=== PATIENT | female | born 1935 | race Caucasian/White ===

== ENCOUNTER 2017-06-08 17:28 | Inpatient (IN) | payer BC ==
[~2017-06-08] VITALS: Ht 152.4 cm; Wt 125.2 kg
[~2017-06-08 17:28] MED LIST: CELEBREX200 MG ORAL; ENABLEX15 MG ORAL; GLUCOSAMINE HC500 MG PO; MACROBID100 MG ORAL; MULTIVITAMINS1 EA11 ORAL; OMEGA 3-6-9 CO400 MG PO; VITAMIN D1000 UNI2 PO
[2017-06-08 17:30] VITALS: BP 158/76
--- NOTE | 2017-06-08 17:50 | Emergency Room Report ---
History of Present Illness General Chief Complaint: Dyspnea/Respdistress Source: Patient, EMS Present Illness HPI 81-year-old female, coming from home, brought by EMS, history of Parkinson's disease, presenting with cough and shortness of breath for 3 days. Patient states that she has a dry cough. Also had subjective fever and chills. States that she has had progressive shortness of breath which occurs both at rest and on exertion. Today she has been the worst. Denies any recent hospitalizations. Denies any history of smoking. No chest pain nausea vomiting diarrhea Allergies: Coded Allergies: No Known Allergies (Unverified , 01/11/14) Patient History Past Medical History: see triage record Past Surgical History: none Pertinent Family History: none Last Menstrual Period: na Reviewed Nursing Documentation: PMH: Agreed, PSxH: Agreed Nursing Documentation-PMH Past Medical History: No History, Except For Hx Cardiac Problems: No Hx Cancer: Yes - BCC SKIN CA Hx Gastrointestinal Problems: No Hx Neurological Problems: Yes - parkinsons Review of Systems All Other Systems: negative except mentioned in HPI Physical Exam Vital Signs Date Time Temp Pulse Resp B/P (MAP) Pulse Ox O2 Delivery O2 Flow Rate FiO2 06/08/17 17:21 99.3 90 48 188/74 96 Room Air 06/08/17 17:30 50 Sp02 EP Interpretation: reviewed, abnormal - 99 on NRB General Appearance: other - elderly female, in resp distress, speaking 3-4 word sentences Head: normocephalic, atraumatic Eyes: bilateral eye normal inspection, bilateral eye PERRL, bilateral eye EOMI ENT: normal ENT inspection, normal pharynx, normal voice, moist mucus membranes Neck: normal inspection, full range of motion, supple Respiratory: other - tachypneic, rhonchi b/l Cardiovascular #1: normal inspection, regular rate, rhythm, no edema, normal capillary refill Cardiovascular #2: 2+ radial (R), 2+ radial (L) Gastrointestinal: normal inspection, non tender, soft, non-distended, no guarding Musculoskeletal: normal inspection, back normal, normal range of motion, non- tender Neurologic: normal inspection, alert, oriented x3, responsive, motor strength/ tone normal, sensory intact, normal gait, speech normal Psychiatric: normal inspection, judgement/insight normal, memory normal Skin: normal inspection, normal color, no rash, warm/dry, well hydrated, normal turgor Procedures Critical Care Time Critical Care Time 40 minutes of CC time 81-year-old female with fever chills shortness of breath VS: Tachypneic and hypoxic Airway patent. PLAN: IV access, labs, lactate, Blood/Urine Cx, Abx Anticipate admission to [facility] vs. [facility] CC time also includes review of labs, review of EMR, discussion with family and paperwork from SNF, d/w hospitalist CC could include dosing of pressors, additional Abx CC time does not include procedures Medical Decision Making Diagnostic Impression: Primary Impression: Respiratory distress Additional Impressions: UTI (urinary tract infection) Pneumonia ER Course 81-year-old female with pmhx of Parkinson's disease p/w shortness of breath fever and cough for 3 days. DDX: Viral URI vs. pneumonia versus ACS versus UTI Plan: Labs, EKG, chest x-ray ER course: Patient required BiPAP upon arrival as she was tachypnea, increased work of breathing Continues to be in mild/moderate respiratory distress. IV fluids given to patient, antibiotics administered for UTI and pneumonia Patient weaned off bipap, currently RR ~25 Disposition: Patient is to be admitted to [facility] D/w hospitalist Dr Ortega who has accepted patient for xfer EKG Diagnostic Results EP Interpretation: Yes Rate: normal Rhythm: NSR ST Segments: T wave flattening in V2 and V3 ASA given to patient: No Rhythm Strip EP Interpretation: Yes Rate: 90 Rhythm: NSR, no PVCs, no ectopy Chest X-ray CXR: Ordered: Yes 1 view Indication: SOB EP interpretation: Yes Interpretation: cardiomegaly with infiltrate vs. pulm vasc congestion Impression: pulm vasc congestion vs. b/l infilrates Electronically signed by Good Zhang MD Laboratory Tests Test 06/08/17 18:00 06/08/17 18:27 06/08/17 19:10 White Blood Count 12.4 K/UL (4.8-10.8) H Red Blood Count 5.02 M/UL (4.20-5.40) Hemoglobin 14.4 G/DL (12.0-16.0) Hematocrit 48.7 % (37.0-47.0) H Mean Corpuscular Volume 97 FL (80-99) Mean Corpuscular Hemoglobin 28.6 PG (27.0-31.0) Mean Corpuscular Hemoglobin Concent 29.5 G/DL (32.0-36.0) L Red Cell Distribution Width 12.4 % (11.6-14.8) Platelet Count 154 K/UL (150-450) Mean Platelet Volume 6.3 FL (6.5-10.1) L Neutrophils (%) (Auto) % (45.0-75.0) Lymphocytes (%) (Auto) % (20.0-45.0) Monocytes (%) (Auto) % (1.0-10.0) Eosinophils (%) (Auto) % (0.0-3.0) Basophils (%) (Auto) % (0.0-2.0) Differential Total Cells Counted 100 Neutrophils % (Manual) 86 % (45-75) H Lymphocytes % (Manual) 7 % (20-45) L Monocytes % (Manual) 5 % (1-10) Eosinophils % (Manual) 0 % (0-3) Basophils % (Manual) 0 % (0-2) Band Neutrophils 2 % (0-8) Platelet Estimate Adequate Platelet Morphology Normal Red Blood Cell Morphology Normal Sodium Level 139 MMOL/L (136-145) Potassium Level 4.4 MMOL/L (3.5-5.1) Chloride Level 105 MMOL/L (98-107) Carbon Dioxide Level 25 MMOL/L (21-32) Anion Gap 9 mmol/L (5-15) Blood Urea Nitrogen 24 mg/dL (7-18) H Creatinine 0.9 MG/DL (0.55-1.30) Estimate Glomerular Filtration Rate mL/min (>60) Glucose Level 141 MG/DL (74-106) H Lactic Acid Level 1.60 mmol/L (0.66-2.22) Calcium Level 9.1 MG/DL (8.5-10.1) Total Bilirubin 0.7 MG/DL (0.2-1.0) Aspartate Amino Transferase (AST) 17 U/L (15-37) Alanine Aminotransferase (ALT) 24 U/L (12-78) Alkaline Phosphatase 76 U/L (46-116) Troponin I 0.000 ng/mL (0.000-0.056) Pro-B-Type Natriuretic Peptide 268 pg/mL (0-125) H Total Protein 7.5 G/DL (6.4-8.2) Albumin 3.7 G/DL (3.4-5.0) Globulin 3.8 g/dL Albumin/Globulin Ratio 1.0 (1.0-2.7) Arterial Blood pH 7.426 (7.350-7.450) Arterial Blood Partial Pressure CO2 31.5 mmHg (35.0-45.0) L Arterial Blood Partial Pressure O2 115.1 mmHg (75.0-100.0) H Arterial Blood HCO3 20.3 mmol/L (22.0-26.0) L Arterial Blood Oxygen Saturation 98.3 % (92.0-98.0) H Arterial Blood Base Excess -3.0 Kerwin Test Positive Urine Color Pale yellow Urine Appearance Clear Urine pH 5 (4.5-8.0) Urine Specific [place] 1.015 (1.005-1.035) Urine Protein Negative (NEGATIVE) Urine Glucose (UA) Negative (NEGATIVE) Urine Ketones Negative (NEGATIVE) Urine Occult Blood 1+ (NEGATIVE) H Urine Nitrite Positive (NEGATIVE) H Urine Bilirubin Negative (NEGATIVE) Urine Urobilinogen Normal MG/DL (0.0-1.0) Urine Leukocyte Esterase 2+ (NEGATIVE) H Urine RBC 0-2 /HPF (0 - 2) Urine WBC 2-4 /HPF (0 - 2) Urine Squamous Epithelial Cells Few /LPF (NONE/OCC) Urine Bacteria Few /HPF (NONE) Last Vital Signs Date Time Temp Pulse Resp B/P (MAP) Pulse Ox O2 Delivery O2 Flow Rate FiO2 06/08/17 17:30 89 40 96 Facial 50 06/08/17 17:21 99.3 188/74 Disposition: ADMITTED INPATIENT Condition: Serious Good Zhang M.D. Jun 08, 2017 17:50
[2017-06-08 18:35] LABS: ANION GAP 9 mmol/L (5-15); CALCIUM 9.1 MG/DL (8.5-10.1); CARBON DIOXIDE 25 MMOL/L (21-32); CHLORIDE 105 MMOL/L (98-107); CREATININE 0.9 MG/DL (0.55-1.30); POTASSIUM 4.4 MMOL/L (3.5-5.1); SODIUM 139 MMOL/L (136-145)
[2017-06-08 18:39] LABS: ALANINE AMINOTRANSFERASE 24 U/L (12-78); ASPARTATE AMINO TRANSFERASE 17 U/L (15-37); TOTAL PROTEIN 7.5 G/DL (6.4-8.2)
[2017-06-08 18:51] LABS: MEAN CORPUSCULAR HEMOGLOBIN 28.6 PG (27.0-31.0); MEAN CORPUSCULAR HGB CONC 29.5 G/DL (32.0-36.0); MEAN CORPUSCULAR VOLUME 97 FL (80-99); MEAN PLATELET VOLUME 6.3 FL (6.5-10.1); PLATELET COUNT 154 K/UL (150-450); RED BLOOD COUNT 5.02 M/UL (4.20-5.40); RED CELL DISTRIBUTION WIDTH 12.4 % (11.6-14.8); WHITE BLOOD COUNT 12.4 K/UL (4.8-10.8)
[2017-06-08 19:00] VITALS: BP 166/54
[2017-06-08 19:28] LABS: APPEARANCE,URINE CLEAR; KETONES,URINE NEGATIVE (NEGATIVE); LEUKOCYTE ESTERASE ,URINE 2+ (NEGATIVE); NITRITE,URINE POSITIVE (NEGATIVE); PH,URINE 5 (4.5-8.0); PROTEIN,URINE NEGATIVE (NEGATIVE); UROBILINOGEN,URINE NORMAL MG/DL (0.0-1.0)
[2017-06-08 19:39] LABS: BACTERIA,URINE FEW /HPF; RBC,URINE 0-2 /HPF (0 - 2); SQUAMOUS EPITHELIAL CELL,UR FEW /LPF (NONE/OCC)
[2017-06-08 19:41] LABS: ABG PCO2 31.5 mmHg (35.0-45.0)
[2017-06-08 19:42] LABS: ABG ALLEN TEST POSITIVE
[2017-06-08] MEDS ORDERED: cefTRIAXone 1 GM in NS 55 ML IV ONE (19:45)
[2017-06-08] MEDS ORDERED: Azithromycin 500 MG in NS 275 ML IV ONE (19:45)
[2017-06-08] MEDS ORDERED: Lidocaine 1% MPF 10mg/ml 5ml INJ ONE (19:45)
[2017-06-08 19:47] LABS: BAND NEUTROPHILS % (MANUAL) 2 % (0-8); BASOPHILS % (MANUAL) 0 % (0-2); EOSINOPHILS % (MANUAL) 0 % (0-3); LYMPHOCYTES % (MANUAL) 7 % (20-45); NEUTROPHILS % (MANUAL) 86 % (45-75); PLATELET ESTIMATE ADEQUATE; PLATELET MORPHOLOGY NORMAL; TOTAL CELLS COUNTED 100
[2017-06-08] MEDS ORDERED: Azithromycin 500mg Inj IV ONE (20:13)
[2017-06-08] MEDS ORDERED: NS 275 ML ONE (20:14)
[2017-06-08] MEDS ORDERED: AZELASTINE137 MCG/0. NS (20:47)
[2017-06-08] MEDS ORDERED: SINEMET 25-1001 EAC1 ORAL (20:47)
[2017-06-08] MEDS ORDERED: FLONASE ALLERG9.9 ML NS (20:47)
[2017-06-08] MEDS ORDERED: SENSIPAR30 MG (20:50)
[2017-06-08] MEDS ORDERED: ESTRING1 EACH (20:50)
[2017-06-08] MEDS ORDERED: TOVIAZ8 MG (20:50)
[2017-06-08 21:00] VITALS: BP 151/72
[2017-06-08] MEDS ORDERED: Mylanta II UD 30ml ORAL PRN (21:45)
[2017-06-08] MEDS ORDERED: Miralax 17gm pkt ORAL PRN (21:45)
[2017-06-08] MEDS ORDERED: Promethazine/Codeine 5ml UD ORAL PRN (21:45)
[2017-06-08] MEDS ORDERED: Nitroglycerin Subl 0.4mg tab SL PRN (21:45)
[2017-06-08] MEDS ORDERED: Vancomycin 1.5gm/D5W 250ml 250 ML IVPB SCH (23:00)
[2017-06-08] MEDS: Cefepime HCl 1 GM in D5W 55 ML IV SCH (23:12)
[2017-06-09] VITALS: BP 135/80
[2017-06-09] MEDS: Albuterol/Ipratropium 3ml neb HHN PRN (00:10)
[2017-06-09 04:51] VITALS: BP 103/68
[2017-06-09 06:12] LABS: MEAN CORPUSCULAR HEMOGLOBIN 31.8 PG (27.0-31.0); MEAN CORPUSCULAR HGB CONC 33.8 G/DL (32.0-36.0); MEAN CORPUSCULAR VOLUME 94 FL (80-99); MEAN PLATELET VOLUME 5.9 FL (6.5-10.1); PLATELET COUNT 152 K/UL (150-450); RED BLOOD COUNT 4.08 M/UL (4.20-5.40); RED CELL DISTRIBUTION WIDTH 12.5 % (11.6-14.8)
[2017-06-09 06:30] LABS: ANION GAP 9 mmol/L (5-15); CALCIUM 8.7 MG/DL (8.5-10.1); CARBON DIOXIDE 24 MMOL/L (21-32); CHLORIDE 107 MMOL/L (98-107); PHOSPHORUS 2.9 MG/DL (2.5-4.9); POTASSIUM 4.1 MMOL/L (3.5-5.1); SODIUM 140 MMOL/L (136-145)
[2017-06-09 08:00] VITALS: BP 116/67
[2017-06-09] MEDS: Sinemet 25/100 tab ORAL SCH ×3 (09:31→17:43)
[2017-06-09] MEDS: Vitamin A&D Oint 2oz Tube TOPIC SCH ×2 (09:33→21:25)
[2017-06-09] MEDS: Heparin 5000 units/ml inj SUBQ SCH ×2 (09:33→21:26)
--- NOTE | 2017-06-09 10:17 | History and Physical ---
History of Present Illness General Date patient seen: Jun 08, 2017 Time patient seen: 21:00 Reason for Hospitalization: Dyspnea/Respdistress Present Illness HPI 81-year-old female, with hx of Parkinson disease, peripheral edema, almost bed bound coming from home, brought by EMS with CC of cough and shortness of breath for 3 days and dry cough. Also had subjective fever and chills. States that she has had progressive shortness of breath which occurs both at rest and on exertion. she had a swallow study one month ago at [facility], which was reportedly normal. She was in respiratory failure in ER and was put on BIPAP and transferred to [facility]. She had loud audible rhonchi and visibly short of breath. Allergies: Coded Allergies: No Known Allergies (Unverified , 01/11/14) Medication History Scheduled Carbidopa/Levodopa 25-100 Mg* (Sinemet 25-100 Mg Tablet*), 1 TAB ORAL THREE TIMES A DAY, (Reported) Celecoxib* (Celebrex*), 200 MG ORAL DAILY, (Reported) Cholecalciferol (Vitamin D3) (Vitamin D), 1,000 UNIT PO DA, (Reported) Cinacalcet* (Sensipar*), DAILY, (Reported) Estradiol (Estring), EVERY THREE MONTHS, (Reported) Fesoterodine Fumarate (Toviaz), 8 MG DAILY, (Reported) Fluticasone Propionate (Flonase Allergy Relief), 50 MCG NS BID, (Reported) Glucosamine Hcl (Glucosamine Hcl), 500 MG PO DAILY, (Reported) Multivitamin (Multivitamins), 1 CAP ORAL DAILY, (Reported) Miscellaneous Medications Azelastine Hcl (Azelastine Hcl), 137 MCG NS, (Reported) Discontinued Medications Darifenacin Hydrobromide* (Enablex*), 15 MG ORAL DAILY, (Reported) Discontinued Reason: Pt stopped taking med Fish Oil/Borage/Flax/Om3,6,9#1 ([place] 3-6-9 Complex Softgel), 400 MG PO DA, ( Reported) Discontinued Reason: Pt stopped taking med Nitrofurantoin Monohyd/M-Cryst (Nitrofurantoin [place]-Mcr 100 mg), 100 MG ORAL DA, (Reported) Discontinued Reason: Pt stopped taking med Patient History Healthcare decision maker KHOI CHIU Resuscitation status Full Code Advanced Directive on File No Past Medical/Surgical History Past Medical/Surgical History: (1) Parkinson disease (2) Peripheral edema Review of Systems Constitutional: Reports: fever, malaise, weakness Respiratory: Reports: shortness of breath, wheezing Physical Exam General Appearance: WD/WN Lines, tubes and drains: peripheral HEENT: normocephalic, atraumatic Neck: non-tender, normal alignment Respiratory/Chest: rhonchi - bilaterally, rhonchi - left, rhonchi - right Cardiovascular/Chest: normal peripheral pulses, regular rhythm Abdomen: normal bowel sounds, soft Extremities: normal range of motion, normal inspection Skin Exam: warm/dry Neurologic: clinical informatics specialist II-XII grossly normal Last 24 Hour Vital Signs Date Time Temp Pulse Resp B/P (MAP) Pulse Ox O2 Delivery O2 Flow Rate FiO2 06/09/17 08:00 98.1 72 20 116/67 97 Bi-pap 40 06/09/17 08:00 40 06/09/17 08:00 72 06/09/17 07:15 74 21 98 Facial 40 06/09/17 05:23 79 22 98 Facial 40 06/09/17 04:51 97.7 70 21 103/68 97 Bi-pap 40 06/09/17 04:00 65 06/09/17 04:00 40 06/09/17 03:41 82 20 98 Facial 40 06/09/17 01:55 79 25 97 Facial 40 06/09/17 00:12 88 22 96 Nasal Cannula 4.0 06/09/17 00:00 40 06/09/17 00:00 98.8 92 25 135/80 40 06/09/17 00:00 93 06/08/17 21:30 99.3 89 26 151/72 94 Nasal Cannula 3.0 50 06/08/17 21:00 89 26 151/72 94 Nasal Cannula 3.0 06/08/17 19:44 82 30 98 Facial 50 06/08/17 19:00 86 33 166/54 99 Bi-pap 50 06/08/17 17:37 87 33 Bi-pap 50 06/08/17 17:30 89 40 96 Facial 50 06/08/17 17:30 91 33 158/76 96 Bi-pap 50 06/08/17 17:28 89 40 Room Air 21 06/08/17 17:21 99.3 90 48 188/74 96 Room Air Laboratory Tests Test 06/08/17 18:00 06/08/17 18:27 06/08/17 19:10 06/09/17 05:40 White Blood Count 12.4 K/UL (4.8-10.8) H 15.0 K/UL (4.8-10.8) H Red Blood Count 5.02 M/UL (4.20-5.40) 4.08 M/UL (4.20-5.40) L Hemoglobin 14.4 G/DL (12.0-16.0) 13.0 G/DL (12.0-16.0) Hematocrit 48.7 % (37.0-47.0) H 38.4 % (37.0-47.0) Mean Corpuscular Volume 97 FL (80-99) 94 FL (80-99) Mean Corpuscular Hemoglobin 28.6 PG (27.0-31.0) 31.8 PG (27.0-31.0) H Mean Corpuscular Hemoglobin Concent 29.5 G/DL (32.0-36.0) L 33.8 G/DL (32.0-36.0) Red Cell Distribution Width 12.4 % (11.6-14.8) 12.5 % (11.6-14.8) Platelet Count 154 K/UL (150-450) 152 K/UL (150-450) Mean Platelet Volume 6.3 FL (6.5-10.1) L 5.9 FL (6.5-10.1) L Neutrophils (%) (Auto) % (45.0-75.0) % (45.0-75.0) Lymphocytes (%) (Auto) % (20.0-45.0) % (20.0-45.0) Monocytes (%) (Auto) % (1.0-10.0) % (1.0-10.0) Eosinophils (%) (Auto) % (0.0-3.0) % (0.0-3.0) Basophils (%) (Auto) % (0.0-2.0) % (0.0-2.0) Differential Total Cells Counted 100 Neutrophils % (Manual) 86 % (45-75) H Lymphocytes % (Manual) 7 % (20-45) L Monocytes % (Manual) 5 % (1-10) Eosinophils % (Manual) 0 % (0-3) Basophils % (Manual) 0 % (0-2) Band Neutrophils 2 % (0-8) Platelet Estimate Adequate Platelet Morphology Normal Red Blood Cell Morphology Normal Sodium Level 139 MMOL/L (136-145) 140 MMOL/L (136-145) Potassium Level 4.4 MMOL/L (3.5-5.1) 4.1 MMOL/L (3.5-5.1) Chloride Level 105 MMOL/L (98-107) 107 MMOL/L (98-107) Carbon Dioxide Level 25 MMOL/L (21-32) 24 MMOL/L (21-32) Anion Gap 9 mmol/L (5-15) 9 mmol/L (5-15) Blood Urea Nitrogen 24 mg/dL (7-18) H 21 mg/dL (7-18) H Creatinine 0.9 MG/DL (0.55-1.30) 1.0 MG/DL (0.55-1.30) Estimat Glomerular Filtration Rate mL/min (>60) mL/min (>60) Glucose Level 141 MG/DL (74-106) H 147 MG/DL (74-106) H Lactic Acid Level 1.60 mmol/L (0.66-2.22) Calcium Level 9.1 MG/DL (8.5-10.1) 8.7 MG/DL (8.5-10.1) Total Bilirubin 0.7 MG/DL (0.2-1.0) Aspartate Amino Transf (AST/SGOT) 17 U/L (15-37) Alanine Aminotransferase (ALT/SGPT) 24 U/L (12-78) Alkaline Phosphatase 76 U/L (46-116) Troponin I 0.000 ng/mL (0.000-0.056) Pro-B-Type Natriuretic Peptide 268 pg/mL (0-125) H Total Protein 7.5 G/DL (6.4-8.2) Albumin 3.7 G/DL (3.4-5.0) 3.1 G/DL (3.4-5.0) L Globulin 3.8 g/dL Albumin/Globulin Ratio 1.0 (1.0-2.7) Arterial Blood pH 7.426 (7.350-7.450) Arterial Blood Partial Pressure CO2 31.5 mmHg (35.0-45.0) L Arterial Blood Partial Pressure O2 115.1 mmHg (75.0-100.0) H Arterial Blood HCO3 20.3 mmol/L (22.0-26.0) L Arterial Blood Oxygen Saturation 98.3 % (92.0-98.0) H Arterial Blood Base Excess -3.0 Kerwin Test Positive Urine Color Pale yellow Urine Appearance Clear Urine pH 5 (4.5-8.0) Urine Specific [place] 1.015 (1.005-1.035) Urine Protein Negative (NEGATIVE) Urine Glucose (UA) Negative (NEGATIVE) Urine Ketones Negative (NEGATIVE) Urine Occult Blood 1+ (NEGATIVE) H Urine Nitrite Positive (NEGATIVE) H Urine Bilirubin Negative (NEGATIVE) Urine Urobilinogen Normal MG/DL (0.0-1.0) Urine Leukocyte Esterase 2+ (NEGATIVE) H Urine RBC 0-2 /HPF (0 - 2) Urine WBC 2-4 /HPF (0 - 2) Urine Squamous Epithelial Cells Few /LPF (NONE/OCC) Urine Bacteria Few /HPF (NONE) Phosphorus Level 2.9 MG/DL (2.5-4.9) Height (Feet): 5 Height (Inches): 0.00 Weight (Pounds): 276 Medications Current Medications Medications (Trade) Dose Ordered Sig/Roro Route PRN Reason Start Time Stop Time Status Last Admin Dose Admin Acetaminophen (Tylenol) 650 mg Q4H PRN ORAL fever 06/08/17 21:45 07/08/17 21:44 Al Hydroxide/Mg Hydroxide (Mylanta II) 30 ml Q6H PRN ORAL dyspepsia 06/08/17 21:45 07/08/17 21:44 Albuterol/ Ipratropium (Albuterol/ Ipratropium) 3 ml Q4H PRN HHN Shortness of Breath 06/08/17 21:45 06/13/17 21:44 06/09/17 00:10 Carbidopa/Levodopa (Sinemet 25/100) 1 ea THREE TIMES A DAY ORAL 06/09/17 09:00 07/09/17 08:59 06/09/17 09:31 Cefepime HCl 1 gm/ Dextrose 55 ml @ 110 mls/hr Q24H IV 06/08/17 22:30 06/15/17 22:29 06/08/17 23:12 Heparin Sodium (Porcine) (Heparin 5000 units/ml) 5,000 units EVERY 12 HOURS SUBQ 06/09/17 09:00 07/09/17 08:59 06/09/17 09:33 Methylprednisolone Sodium Succinate (Solu-MEDROL) 60 mg EVERY 6 HOURS IV 06/09/17 12:00 07/09/17 11:59 UNV Nitroglycerin (Ntg) 0.4 mg Q5MIN X 3 DOSES PRN SL Prn Chest Pain 06/08/17 21:45 07/08/17 21:44 Ondansetron HCl (Zofran) 4 mg Q6H PRN IVP Nausea & Vomiting 06/08/17 21:45 07/08/17 21:44 Polyethylene Glycol (Miralax) 17 gm DAILYPRN PRN ORAL Constipation 06/08/17 21:45 07/08/17 21:44 Promethazine HCl/ Codeine (Phenergan with Codeine) 5 ml Q4H PRN ORAL For Cough 06/08/17 21:45 07/08/17 21:44 Temazepam (Restoril) 15 mg HSPRN PRN ORAL Insomnia 06/08/17 21:45 06/15/17 21:44 Vancomycin HCl (Vanco rx to dose) 1 ea DAILYPRN PRN MISC Per rx protocol 06/08/17 21:45 07/08/17 21:44 Vancomycin HCl 1 gm/Dextrose 250 ml @ 166.667 mls/hr DAILY@2300 IVPB 06/09/17 23:00 06/14/17 22:59 Vancomycin HCl/ Dextrose 250 ml @ 125 mls/hr ONCE IVPB 06/08/17 23:00 06/13/17 22:59 06/09/17 00:32 Vitamin A/Vitamin D (A & D Oint) 1 applic EVERY 12 HOURS TOPIC 06/09/17 09:00 07/09/17 08:59 06/09/17 09:33 Assessment/Plan Problem List: (1) Acute respiratory failure ICD Codes: J96.00 - Acute respiratory failure, unspecified whether with hypoxia or hypercapnia SNOMED: 05520934 (2) Purulent bronchitis ICD Codes: J41.1 - Mucopurulent chronic bronchitis SNOMED: 42451643 (3) At high risk for aspiration ICD Codes: Z91.89 - Other specified personal risk factors, not elsewhere classified SNOMED: 828065945 (4) Pneumonia ICD Codes: J18.9 - Pneumonia, unspecified organism SNOMED: 450141335 (5) Peripheral edema ICD Codes: R60.9 - Edema, unspecified SNOMED: 073981348 (6) Parkinson disease ICD Codes: G20 - Parkinson's disease SNOMED: 94059762 Assessment/Plan respiratory treatment titrate bipap check sputum iv abx short course of abx echo cardiogram swallow study pt/ot in a few days KERRI YIN Jun 09, 2017 10:17
--- NOTE | 2017-06-09 10:22 | Diagnostic Imaging Report ---
Indication: SOB Technique: One view of the chest Comparison: none Findings: Inspiration is suboptimal. Patient's chin obscures the upper mediastinum. There is equivocal mild interstitial congestion. No focal airspace consolidation. Pleural spaces are clear. The heart is borderline enlarged. Impression: Borderline heart remains Mild interstitial congestion Limited exam, as described
--- NOTE | 2017-06-09 10:34 | Pulmonology Progress Note ---
Assessment/Plan Problems: (1) Acute respiratory failure (2) Purulent bronchitis (3) At high risk for aspiration (4) Pneumonia (5) Peripheral edema (6) Parkinson disease Respiratory: monitor respiratory rate, adjust FIO2, CXR Cardiac: continue to monitor HR/BP Renal: F/U I&O, check electrolytes Infectious Disease: check cultures, continue antibiotics Gastrointestinal: continue feedings/current rate, other - swallow study Endocrine: monitor blood sugar Hematologic: monitor H/H, transfuse if hgb<8.5 Neurologic: PRN Ativan, PRN Morphine, keep patient comfortable Prophylaxis: Heparin Notes Reviewed: territory development manager, cardio Discussed with: nurses, consultants, sample case porter Subjective ROS Limited/Unobtainable: No Interval Events: off bipap, pts son in at the bed site Allergies: Coded Allergies: No Known Allergies (Unverified , 01/11/14) Objective Last 24 Hour Vital Signs Date Time Temp Pulse Resp B/P (MAP) Pulse Ox O2 Delivery O2 Flow Rate FiO2 06/09/17 08:00 98.1 72 20 116/67 97 Bi-pap 40 06/09/17 08:00 40 06/09/17 08:00 72 06/09/17 07:15 74 21 98 Facial 40 06/09/17 05:23 79 22 98 Facial 40 06/09/17 04:51 97.7 70 21 103/68 97 Bi-pap 40 06/09/17 04:00 65 06/09/17 04:00 40 06/09/17 03:41 82 20 98 Facial 40 06/09/17 01:55 79 25 97 Facial 40 06/09/17 00:12 88 22 96 Nasal Cannula 4.0 06/09/17 00:00 40 06/09/17 00:00 98.8 92 25 135/80 40 06/09/17 00:00 93 06/08/17 21:30 99.3 89 26 151/72 94 Nasal Cannula 3.0 50 06/08/17 21:00 89 26 151/72 94 Nasal Cannula 3.0 06/08/17 19:44 82 30 98 Facial 50 06/08/17 19:00 86 33 166/54 99 Bi-pap 50 06/08/17 17:37 87 33 Bi-pap 50 06/08/17 17:30 89 40 96 Facial 50 06/08/17 17:30 91 33 158/76 96 Bi-pap 50 06/08/17 17:28 89 40 Room Air 21 06/08/17 17:21 99.3 90 48 188/74 96 Room Air General Appearance: no acute distress HEENT: normocephalic, atraumatic Respiratory/Chest: chest wall non-tender, accessory muscle use, crackles/rales Cardiovascular: normal peripheral pulses, normal rate Abdomen: normal bowel sounds, soft, non tender, no organomegaly Extremities: no cyanosis Skin: no lesions, rash - lower extremities Laboratory Tests 06/08/17 18:00: White Blood Count 12.4H, Red Blood Count 5.02, Hemoglobin 14.4, Hematocrit 48.7H , Mean Corpuscular Volume 97, Mean Corpuscular Hemoglobin 28.6, Mean Corpuscular Hemoglobin Concent 29.5L, Red Cell Distribution Width 12.4, Platelet Count 154, Mean Platelet Volume 6.3L, Neutrophils (%) (Auto) , Lymphocytes (%) (Auto) , Monocytes (%) (Auto) , Eosinophils (%) (Auto) , Basophils (%) (Auto) , Differential Total Cells Counted 100, Neutrophils % ( Manual) 86H, Lymphocytes % (Manual) 7L, Monocytes % (Manual) 5, Eosinophils % ( Manual) 0, Basophils % (Manual) 0, Band Neutrophils 2, Platelet Estimate Adequate, Platelet Morphology Normal, Red Blood Cell Morphology Normal, Sodium Level 139, Potassium Level 4.4, Chloride Level 105, Carbon Dioxide Level 25, Anion Gap 9, Blood Urea Nitrogen 24H, Creatinine 0.9, Estimat Glomerular Filtration Rate , Glucose Level 141H, Lactic Acid Level 1.60, Calcium Level 9.1 , Total Bilirubin 0.7, Aspartate Amino Transf (AST/SGOT) 17, Alanine Aminotransferase (ALT/SGPT) 24, Alkaline Phosphatase 76, Troponin I 0.000, Pro-B -Type Natriuretic Peptide 268H, Total Protein 7.5, Albumin 3.7, Globulin 3.8, Albumin/Globulin Ratio 1.0 06/08/17 18:27: Arterial Blood pH 7.426, Arterial Blood Partial Pressure CO2 31.5L, Arterial Blood Partial Pressure O2 115.1H, Arterial Blood HCO3 20.3L, Arterial Blood Oxygen Saturation 98.3H, Arterial Blood Base Excess -3.0, Kerwin Test Positive 06/08/17 19:10: Urine Color Pale yellow, Urine Appearance Clear, Urine pH 5, Urine Specific [place] 1.015, Urine Protein Negative, Urine Glucose (UA) Negative, Urine Ketones Negative, Urine Occult Blood 1+H, Urine Nitrite PositiveH, Urine Bilirubin Negative, Urine Urobilinogen Normal, Urine Leukocyte Esterase 2+H, Urine RBC 0-2, Urine WBC 2-4, Urine Squamous Epithelial Cells Few, Urine Bacteria Few 06/09/17 05:40: White Blood Count 15.0H, Red Blood Count 4.08L, Hemoglobin 13.0, Hematocrit 38.4 , Mean Corpuscular Volume 94, Mean Corpuscular Hemoglobin 31.8H, Mean Corpuscular Hemoglobin Concent 33.8, Red Cell Distribution Width 12.5, Platelet Count 152, Mean Platelet Volume 5.9L, Neutrophils (%) (Auto) , Lymphocytes (%) ( Auto) , Monocytes (%) (Auto) , Eosinophils (%) (Auto) , Basophils (%) (Auto) , Sodium Level 140, Potassium Level 4.1, Chloride Level 107, Carbon Dioxide Level 24, Anion Gap 9, Blood Urea Nitrogen 21H, Creatinine 1.0, Estimat Glomerular Filtration Rate , Glucose Level 147H, Calcium Level 8.7, Albumin 3.1L, Phosphorus Level 2.9 Current Medications Medications (Trade) Dose Ordered Sig/Roro Route PRN Reason Start Time Stop Time Status Last Admin Dose Admin Acetaminophen (Tylenol) 650 mg Q4H PRN ORAL fever 06/08/17 21:45 07/08/17 21:44 Al Hydroxide/Mg Hydroxide (Mylanta II) 30 ml Q6H PRN ORAL dyspepsia 06/08/17 21:45 07/08/17 21:44 Albuterol/ Ipratropium (Albuterol/ Ipratropium) 3 ml Q4H PRN HHN Shortness of Breath 06/08/17 21:45 06/13/17 21:44 06/09/17 00:10 Carbidopa/Levodopa (Sinemet 25/100) 1 ea THREE TIMES A DAY ORAL 06/09/17 09:00 07/09/17 08:59 06/09/17 09:31 Cefepime HCl 1 gm/ Dextrose 55 ml @ 110 mls/hr Q24H IV 06/08/17 22:30 06/15/17 22:29 06/08/17 23:12 Heparin Sodium (Porcine) (Heparin 5000 units/ml) 5,000 units EVERY 12 HOURS SUBQ 06/09/17 09:00 07/09/17 08:59 06/09/17 09:33 Methylprednisolone Sodium Succinate (Solu-MEDROL) 60 mg EVERY 6 HOURS IV 06/09/17 12:00 07/09/17 11:59 Nitroglycerin (Ntg) 0.4 mg Q5MIN X 3 DOSES PRN SL Prn Chest Pain 06/08/17 21:45 07/08/17 21:44 Ondansetron HCl (Zofran) 4 mg Q6H PRN IVP Nausea & Vomiting 06/08/17 21:45 07/08/17 21:44 Polyethylene Glycol (Miralax) 17 gm DAILYPRN PRN ORAL Constipation 06/08/17 21:45 07/08/17 21:44 Promethazine HCl/ Codeine (Phenergan with Codeine) 5 ml Q4H PRN ORAL For Cough 06/08/17 21:45 07/08/17 21:44 Temazepam (Restoril) 15 mg HSPRN PRN ORAL Insomnia 06/08/17 21:45 06/15/17 21:44 Vancomycin HCl (Vanco rx to dose) 1 ea DAILYPRN PRN MISC Per rx protocol 06/08/17 21:45 07/08/17 21:44 Vancomycin HCl 1 gm/Dextrose 250 ml @ 166.667 mls/hr DAILY@2300 IVPB 06/09/17 23:00 06/14/17 22:59 Vancomycin HCl/ Dextrose 250 ml @ 125 mls/hr ONCE IVPB 06/08/17 23:00 06/13/17 22:59 06/09/17 00:32 Vitamin A/Vitamin D (A & D Oint) 1 applic EVERY 12 HOURS TOPIC 06/09/17 09:00 07/09/17 08:59 06/09/17 09:33 KERRI YIN Jun 09, 2017 10:34
[2017-06-09] MEDS ORDERED: VITAMIN D-32000 UNI1 PO (11:07)
[2017-06-09 11:56] VITALS: BP 145/85
[2017-06-09] MEDS ORDERED: Solu-MEDROL 125mg Inj IV SCH (12:00)
--- NOTE | 2017-06-09 12:08 | Cardiology Progress Note ---
Assessment/Plan Assessment/Plan full note dictated [id number] doubt chf continue as you are rxn for pulm issue echo and repeat trop Objective Last 24 Hour Vital Signs Date Time Temp Pulse Resp B/P (MAP) Pulse Ox O2 Delivery O2 Flow Rate FiO2 06/09/17 11:56 98.2 76 21 145/85 96 Venturi Mask 40 06/09/17 08:00 98.1 72 20 116/67 97 Bi-pap 40 06/09/17 08:00 40 06/09/17 08:00 72 06/09/17 07:15 74 21 98 Facial 40 06/09/17 05:23 79 22 98 Facial 40 06/09/17 04:51 97.7 70 21 103/68 97 Bi-pap 40 06/09/17 04:00 65 06/09/17 04:00 40 06/09/17 03:41 82 20 98 Facial 40 06/09/17 01:55 79 25 97 Facial 40 06/09/17 00:12 88 22 96 Nasal Cannula 4.0 06/09/17 00:00 40 06/09/17 00:00 98.8 92 25 135/80 40 06/09/17 00:00 93 06/08/17 21:30 99.3 89 26 151/72 94 Nasal Cannula 3.0 50 06/08/17 21:00 89 26 151/72 94 Nasal Cannula 3.0 06/08/17 19:44 82 30 98 Facial 50 06/08/17 19:00 86 33 166/54 99 Bi-pap 50 06/08/17 17:37 87 33 Bi-pap 50 06/08/17 17:30 89 40 96 Facial 50 06/08/17 17:30 91 33 158/76 96 Bi-pap 50 06/08/17 17:28 89 40 Room Air 21 06/08/17 17:21 99.3 90 48 188/74 96 Room Air Laboratory Tests Test 06/08/17 18:00 06/08/17 18:27 06/08/17 19:10 06/09/17 05:40 White Blood Count 12.4 K/UL (4.8-10.8) H 15.0 K/UL (4.8-10.8) H Red Blood Count 5.02 M/UL (4.20-5.40) 4.08 M/UL (4.20-5.40) L Hemoglobin 14.4 G/DL (12.0-16.0) 13.0 G/DL (12.0-16.0) Hematocrit 48.7 % (37.0-47.0) H 38.4 % (37.0-47.0) Mean Corpuscular Volume 97 FL (80-99) 94 FL (80-99) Mean Corpuscular Hemoglobin 28.6 PG (27.0-31.0) 31.8 PG (27.0-31.0) H Mean Corpuscular Hemoglobin Concent 29.5 G/DL (32.0-36.0) L 33.8 G/DL (32.0-36.0) Red Cell Distribution Width 12.4 % (11.6-14.8) 12.5 % (11.6-14.8) Platelet Count 154 K/UL (150-450) 152 K/UL (150-450) Mean Platelet Volume 6.3 FL (6.5-10.1) L 5.9 FL (6.5-10.1) L Neutrophils (%) (Auto) % (45.0-75.0) % (45.0-75.0) Lymphocytes (%) (Auto) % (20.0-45.0) % (20.0-45.0) Monocytes (%) (Auto) % (1.0-10.0) % (1.0-10.0) Eosinophils (%) (Auto) % (0.0-3.0) % (0.0-3.0) Basophils (%) (Auto) % (0.0-2.0) % (0.0-2.0) Differential Total Cells Counted 100 Neutrophils % (Manual) 86 % (45-75) H Lymphocytes % (Manual) 7 % (20-45) L Monocytes % (Manual) 5 % (1-10) Eosinophils % (Manual) 0 % (0-3) Basophils % (Manual) 0 % (0-2) Band Neutrophils 2 % (0-8) Platelet Estimate Adequate Platelet Morphology Normal Red Blood Cell Morphology Normal Sodium Level 139 MMOL/L (136-145) 140 MMOL/L (136-145) Potassium Level 4.4 MMOL/L (3.5-5.1) 4.1 MMOL/L (3.5-5.1) Chloride Level 105 MMOL/L (98-107) 107 MMOL/L (98-107) Carbon Dioxide Level 25 MMOL/L (21-32) 24 MMOL/L (21-32) Anion Gap 9 mmol/L (5-15) 9 mmol/L (5-15) Blood Urea Nitrogen 24 mg/dL (7-18) H 21 mg/dL (7-18) H Creatinine 0.9 MG/DL (0.55-1.30) 1.0 MG/DL (0.55-1.30) Estimat Glomerular Filtration Rate mL/min (>60) mL/min (>60) Glucose Level 141 MG/DL (74-106) H 147 MG/DL (74-106) H Lactic Acid Level 1.60 mmol/L (0.66-2.22) Calcium Level 9.1 MG/DL (8.5-10.1) 8.7 MG/DL (8.5-10.1) Total Bilirubin 0.7 MG/DL (0.2-1.0) Aspartate Amino Transf (AST/SGOT) 17 U/L (15-37) Alanine Aminotransferase (ALT/SGPT) 24 U/L (12-78) Alkaline Phosphatase 76 U/L (46-116) Troponin I 0.000 ng/mL (0.000-0.056) Pro-B-Type Natriuretic Peptide 268 pg/mL (0-125) H Total Protein 7.5 G/DL (6.4-8.2) Albumin 3.7 G/DL (3.4-5.0) 3.1 G/DL (3.4-5.0) L Globulin 3.8 g/dL Albumin/Globulin Ratio 1.0 (1.0-2.7) Arterial Blood pH 7.426 (7.350-7.450) Arterial Blood Partial Pressure CO2 31.5 mmHg (35.0-45.0) L Arterial Blood Partial Pressure O2 115.1 mmHg (75.0-100.0) H Arterial Blood HCO3 20.3 mmol/L (22.0-26.0) L Arterial Blood Oxygen Saturation 98.3 % (92.0-98.0) H Arterial Blood Base Excess -3.0 Kerwin Test Positive Urine Color Pale yellow Urine Appearance Clear Urine pH 5 (4.5-8.0) Urine Specific [place] 1.015 (1.005-1.035) Urine Protein Negative (NEGATIVE) Urine Glucose (UA) Negative (NEGATIVE) Urine Ketones Negative (NEGATIVE) Urine Occult Blood 1+ (NEGATIVE) H Urine Nitrite Positive (NEGATIVE) H Urine Bilirubin Negative (NEGATIVE) Urine Urobilinogen Normal MG/DL (0.0-1.0) Urine Leukocyte Esterase 2+ (NEGATIVE) H Urine RBC 0-2 /HPF (0 - 2) Urine WBC 2-4 /HPF (0 - 2) Urine Squamous Epithelial Cells Few /LPF (NONE/OCC) Urine Bacteria Few /HPF (NONE) Phosphorus Level 2.9 MG/DL (2.5-4.9) FRANDY RAUSCH Jun 09, 2017 12:08
[2017-06-09] MEDS: Solu-MEDROL 125mg Inj IV SCH ×2 (12:11→17:43)
--- NOTE | 2017-06-09 12:50 | Cardiology Report ---
APPROVED REPORT EXAM: Two-dimensional and M-mode echocardiogram with Doppler and color Doppler. INDICATION Left Ventricular Function M-Mode DIMENSIONS IVSd1.3 (0.7-1.1cm)Left Atrium (MM)3.7 (1.6-4.0cm) LVDd4.0 (3.5-5.6cm)Aortic Root2.6 (2.0-3.7cm) PWd1.1 (0.7-1.1cm)Aortic Cusp Exc.1.0 (1.5-2.0cm) LVDs1.9 (2.5-4.0cm) PWs1.8 cm Normal left ventricular chamber size, systolic function and wall motion. Left ventricular ejection fraction estimated to be 60 %. Mild left ventricular hypertrophy. Anterior Echo-free space, may be due to pericardial fat or effusion. All other cardiac chamber sizes are within normal limits. Aortic valve calcification with decreased cusp excursion c/w aortic stenosis. Mildly thickened mitral valve leaflets with normal excursion. Mild mitral annulus and aortic root calcification. Pulmonic valve not well visualized. Normal tricuspid valve structure. IVC dilated at 2.7 cm and non-collapsing with respiration, estimted RAP is 15 mmHg. A color flow and spectral Doppler study was performed and revealed: Mild aortic insufficiency. Peak aortic valve gradient of 34 mmHg and a mean of 17 mmHg. Aortic valve area 1.4 cm2 calculated by continuity equation. Mild mitral regurgitation. Mitral diastolic velocities suggest reduced left ventricular relaxation c/w diastolic dysfunction (Grade I). Mild tricuspid regurgitation. Tricuspid systolic velocities suggests peak right ventricular systolic pressure of 43 mmHg, consistent with mild pulmonary hypertension. No pulmonic regurgitation present.
--- NOTE | 2017-06-09 14:28 | Consultation ---
Consult Note Consult Note id dic # [id number] JEFFRY MCKNIGHT M.D. Jun 09, 2017 14:28
--- NOTE | 2017-06-09 14:41 | Wound Care Consultation ---
Wound Assessment Wound Assessment #1: Wound Number: 1 Wound Present on Admission: Yes New Wound: No Status Change of Wound: No Wound Location Body Site Modif: left Wound Location Body Site: buttocks Wound Type: pressure ulcer Sheila Test: Does not Sheila Pressure Ulcer Stage: II Wound Thickness: Partial Thickness Wound Length: 1.5 Wound Width: 0.8 Wound Depth: 0.1 Percent of Wound [place]/Red: 100 Wound Drainage Description: Serosanguineous Wound Drainage Amount: Scant Wound Drainage Odor: None/Absent Tissue Surrounding Wound: purple Wound General Appearance: Reddened, Draining Wound Assessment #2: Wound Number: 2 Wound Present on Admission: Yes New Wound: No Status Change of Wound: No Wound Location Body Site Modif: right Wound Location Body Site: ischial tuberosity Wound Type: pressure ulcer Sheila Test: Does not Sheila Pressure Ulcer Stage: II Wound Thickness: Partial Thickness Wound Length: 2.5 Wound Width: 3.0 Wound Depth: 0.1 Percent of Wound [place]/Red: 100 Wound Drainage Description: Serosanguineous Wound Drainage Amount: Scant Wound Drainage Odor: None/Absent Tissue Surrounding Wound: purple Wound General Appearance: Reddened, Draining Wound Comment #1 Left buttock stage II pressure ulcer #2 Left ischial tuberosity stage II pressure ulcer #3 Right and left breast and breast folds, noted with denuded skin and purplish discolorations. No discharges/drainage noted at this time. Will cont to monitor. Recommendations -Left buttock stage II pressure ulcer and Left ischial tuberosity stage II pressure ulcer Cleanse with saline, pat dry, apply Triad cream, cover with Biatain silicone drg daily and PRN soiled/dislodged -Keep clean and dry -Turn and reposition -Optimize nutrition -Low air loss mattress -Offload both heels -Heel protector on both heels -Assess and f/u accordingly for any changes ADRIANA DRUAN RN Jun 09, 2017 14:41
[2017-06-09] MEDS: Potassium Chloride 10 MEQ in D5 1/2NS 1,000 ML IV SCH (15:27)
[2017-06-09 16:00] VITALS: BP 154/94
[2017-06-09 20:00] VITALS: BP 140/82
--- NOTE | 2017-06-09 20:30 | Consultation ---
DATE OF CONSULTATION: 06/09/2017 CARDIOLOGY CONSULTATION CONSULTING PHYSICIAN: Kumar Díaz M.D. REFERRING PHYSICIAN: Blake Ortega M.D. REASON FOR REFERRAL: Shortness of breath. HISTORY OF PRESENT ILLNESS: This is a 81-year-old female, who is followed at [facility]. Information from [facility] was reviewed. The patient indicates that Thursday night she started having some low-grade fever, cough, congestion, sputum initially yellow and subsequently, she has been able expectorate, really has not had any chills. She has had some shortness of breath and increasing shortness of breath and lot of rattling in her chest, not really wheezing. She does not have any chest pain, pressure, or tightness in her chest. She does not have any PND or orthopnea. She does have ability to walk approximately 30 feet with her walker, but she does not seem to think that she is short of breath when she does those activities until just recently. PAST MEDICAL HISTORY: Positive for history of obesity, atrophic vaginitis, cataracts, osteoporosis, hypercalcemia, Parkinson disease, hemangioma, and urge incontinence. She denies any diabetes, high blood pressure, or high cholesterol. No heart attack. She does have a history of breast cancer. She has a history of skin cancer. No stroke. No hepatitis or tuberculosis. No asthma or emphysema. No ulcers. She did have a history of kidney stones, for which she underwent lithotripsy. No blood clots. No heart issues previously. ALLERGIES: She is not allergic to any medication. SOCIAL HISTORY: She does not smoke, never did; does not drink, never did; and no drugs. She lives at home. REVIEW OF SYSTEMS: GASTROINTESTINAL: Denies any nausea, vomiting, diarrhea, or constipation. No bloody or black stool. GENITOURINARY: Negative. PULMONARY: As mentioned in HPI. CARDIAC: As mentioned in HPI. NEUROLOGIC: Parkinson's. She is mainly in bed, although she does get up and walk around. PHYSICAL EXAMINATION: GENERAL: Physical examination shows her to be elderly female, obese, in no respiratory distress. She has a face mask in place. NECK: Supple. No jugular venous distention. LUNGS: Some rhonchi noted bilaterally. No real crackles. No wheezes are noted. CARDIAC: Regular rate and rhythm. No heaves or thrills noted. ABDOMEN: Soft and obese. Positive bowel sounds. Nontender. EXTREMITIES: There is no clubbing, cyanosis, nor edema. NEUROLOGIC: She is awake, alert, responsive, in no apparent distress. LABORATORY AND DIAGNOSTIC DATA: White count of 15, hemoglobin 13, and platelet count of 152. Blood gases, pH of 7.4, pCO2 31, pO2 of 103, bicarbonate of 20, and 98% saturation. Sodium is 140, potassium 4.1, chloride 107, bicarbonate 24, BUN 21, creatinine 1.0, and glucose of 146. Albumin of 3.1. ProBNP is only 268. Her chest x-ray was performed in the emergency room that shows borderline heart, remains with mild interstitial congestion, limited examination, and the interstitial congestion apparently is equivocal in nature. Her EKG shows sinus rhythm, normal QRS axis. No ST or T-wave abnormalities being documented. Telemetry shows sinus no other significant abnormalities. ASSESSMENT AND PLAN: 1. Shortness of breath and coughing. 2. Obesity. 3. History of breast cancer. 4. Parkinsonism. 5. History of meningioma. 6. History of hypercalcemia. I have had a chance to review some of the records from [facility]. It looks like Dr. Yip has seen the patient on 04/06/2017. He did mention that the patient has apparently a history of chronic cough and she has been on Flonase at that time. She does have abnormal chest x-ray at the present time and her most recent chest x-ray was performed on 04/06/2017 that again showed the patient's chin overlying the right lung apex, right paratracheal opacity is unchanged. The lungs are otherwise clear. I doubt that this is congestive heart failure. She will have a second set of cardiac enzymes and I will order an echocardiogram for tomorrow morning. Her clinical symptoms as well as her presentation and findings are not in line with congestive heart failure. I am not inclined to diurese her much at this time. We will continue treatment for pulmonary issues at this time, and I will follow the patient along with you. Dr. Ortega, thank you for allowing me to participate in the care of this patient. Kumar Díaz M.D. DR: IAN JOB#: [id number] CC:
[2017-06-09] MEDS: Cefepime HCl 1 GM in D5W 55 ML IV SCH (23:00)
[2017-06-10] VITALS: BP 145/88
[2017-06-10] MEDS: Solu-MEDROL 125mg Inj IV SCH ×2 (00:10→06:19)
[2017-06-10] MEDS: Albuterol/Ipratropium 3ml neb HHN PRN ×4 (00:39→19:38)
--- NOTE | 2017-06-10 01:15 | Consultation ---
DATE OF CONSULTATION: 06/09/2017 INFECTIOUS DISEASES CONSULTATION CONSULTING PHYSICIAN: Tony Samuels M.D. REFERRING PHYSICIAN: Blake Ortega M.D. REASON FOR CONSULTATION: Evaluation of the patient for pneumonia, antibiotic management. HISTORY OF PRESENT ILLNESS: The patient is a 81-year-old female, who was brought to the hospital due to shortness of breath and dry cough for last three days prior to admission. The patient has been admitted with the impression of pneumonia. Infectious Disease consultation has been requested for further evaluation of the patient's antibiotic management. PAST MEDICAL HISTORY: 1. History of cataract surgery. 2. History of sleep apnea requiring BiPAP. 3. History of breast cancer status post lumpectomy. 4. History of overactive bladder. 5. History of osteoarthritis. 6. Spinal stenosis. 7. Parkinson disease. MEDICATIONS: Vancomycin, Solu-Medrol, and cefepime. ALLERGIES: No known drug allergies. SOCIAL HISTORY: The patient lives at home. FAMILY HISTORY: Noncontributory. REVIEW OF SYSTEMS: HEENT: No recent change in vision or hearing. PULMONARY: As mentioned above. CARDIOVASCULAR: No chest pain or palpitation. GASTROINTESTINAL/ABDOMEN: No nausea or vomiting. GENITOURINARY: No dysuria. MUSCULOSKELETAL: As mentioned above. PHYSICAL EXAMINATION: VITAL SIGNS: Temperature 98.2 degrees, pulse 86, respiratory rate 18, and blood pressure 144/85. HEENT: No pale conjunctivae. No icterus. NECK: No lymphadenopathy. CHEST: Coarse breathing sounds. HEART: S1 and S2. ABDOMEN: Obese and nontender. EXTREMITIES: No cyanosis. NEUROLOGIC: Awake. LABORATORY AND DIAGNOSTIC DATA: White blood cell 15, hemoglobin 13, and platelets 152. UA unremarkable. BUN 10 and creatinine 1. Liver function tests are unremarkable. Chest x-ray, mild interstitial congestion. ASSESSMENT: The patient is a 81-year-old female with, 1. Community-acquired pneumonia. 2. Mild leukocytosis (the patient is on steroids). 3. Afebrile. PLAN: 1. We will start the patient on Levaquin and hold cefepime and vancomycin. We will continue for a total of five days of Levaquin. 2. Monitor CBC. 3. Monitor BMP. 4. Monitor chest x-ray. 5. Based on patient's clinical course and labs, we will do further recommendation. Thank you, Dr. Ortega, for allowing me to participate in the care of this patient. I will follow the patient with you during this hospitalization. Tony Samuels M.D. DR: GUALBERTO JOB#: [id number] CC:
[2017-06-10 04:00] VITALS: BP 128/64
[2017-06-10 05:14] LABS: MEAN CORPUSCULAR HEMOGLOBIN 30.7 PG (27.0-31.0); MEAN CORPUSCULAR HGB CONC 32.6 G/DL (32.0-36.0); MEAN CORPUSCULAR VOLUME 94 FL (80-99); MEAN PLATELET VOLUME 6.1 FL (6.5-10.1); PLATELET COUNT 154 K/UL (150-450); RED BLOOD COUNT 4.37 M/UL (4.20-5.40); RED CELL DISTRIBUTION WIDTH 12.3 % (11.6-14.8); WHITE BLOOD COUNT 10.5 K/UL (4.8-10.8)
[2017-06-10 06:27] LABS: ALANINE AMINOTRANSFERASE 19 U/L (12-78); ALBUMIN/GLOBULIN RATIO 0.7 (1.0-2.7); ANION GAP 11 mmol/L (5-15); ASPARTATE AMINO TRANSFERASE 21 U/L (15-37); CALCIUM 8.6 MG/DL (8.5-10.1); CARBON DIOXIDE 22 MMOL/L (21-32); CHLORIDE 108 MMOL/L (98-107); CREATININE 0.8 MG/DL (0.55-1.30); POTASSIUM 3.5 MMOL/L (3.5-5.1); SODIUM 141 MMOL/L (136-145); TOTAL PROTEIN 6.9 G/DL (6.4-8.2)
[2017-06-10 08:00] VITALS: BP 138/90
[2017-06-10] MEDS: Vitamin A&D Oint 2oz Tube TOPIC SCH ×2 (09:20→21:05)
[2017-06-10] MEDS: Sinemet 25/100 tab ORAL SCH ×3 (09:20→21:54)
[2017-06-10] MEDS: Heparin 5000 units/ml inj SUBQ SCH ×2 (09:22→21:04)
--- NOTE | 2017-06-10 09:24 | Infectious Diseases Prog Note ---
Assessment/Plan Assessment/Plan ASSESSMENT: The patient is a 81-year-old female with, Community-acquired pneumonia Mild leukocytosis , SP ( on steroids). Afebrile BCx : 1/2 GPC probable contaminant History of cataract surgery. History of sleep apnea requiring BiPAP. History of breast cancer status post lumpectomy. History of overactive bladder. History of osteoarthritis. Spinal stenosis. Parkinson disease PLAN: start the patient on Levaquin d# 1 / 5 and cont and vancomycin d# 2 DC cefepime d# 2 . Monitor CBC. Monitor BMP. Monitor chest x-ray repeat blood cx Monitor cultures Subjective Constitutional: Denies: no symptoms, fever, chills, fatigue, anorexia, drenching sweats, other Allergies: Coded Allergies: No Known Allergies (Unverified , 01/11/14) Objective Vital Signs Last 24 Hour Vital Signs Date Time Temp Pulse Resp B/P (MAP) Pulse Ox O2 Delivery O2 Flow Rate FiO2 06/10/17 08:55 64 20 98 Venturi Mask 8.0 40 06/10/17 08:49 61 20 96 Venturi Mask 8.0 40 06/10/17 08:00 40 06/10/17 08:00 57 06/10/17 08:00 97.5 65 18 138/90 96 Venturi Mask 40 06/10/17 07:43 96 Venturi Mask 8.0 40 06/10/17 07:43 Venturi Mask 8.0 40 06/10/17 05:04 58 19 97 Facial 40 06/10/17 04:00 66 06/10/17 04:00 98.2 67 19 128/64 95 Venturi Mask 40 06/10/17 04:00 40 06/10/17 03:25 60 22 97 Facial 40 06/10/17 01:02 62 20 98 Facial 40 06/10/17 00:40 60 20 98 Venturi Mask 8.0 40 06/10/17 00:39 58 20 96 Venturi Mask 8.0 40 06/10/17 00:00 97.5 78 18 145/88 95 Venturi Mask 40 06/10/17 00:00 10.0 40 06/10/17 00:00 72 06/09/17 23:04 40 06/09/17 21:10 40 06/09/17 20:00 83 06/09/17 20:00 10.0 40 06/09/17 20:00 97.5 85 18 140/82 95 Venturi Mask 40 06/09/17 19:30 Venturi Mask 8.0 40 06/09/17 19:30 92 Venturi Mask 8.0 40 06/09/17 19:18 40 06/09/17 16:00 98.2 80 18 154/94 94 Venturi Mask 40 06/09/17 16:00 10.0 40 06/09/17 16:00 78 06/09/17 12:00 78 06/09/17 12:00 10.0 40 06/09/17 11:56 98.2 76 21 145/85 96 Venturi Mask 40 Height (Feet): 5 Height (Inches): 0.00 Weight (Pounds): 276 HEENT: anicteric Respiratory/Chest: normal breath sounds Cardiovascular: normal rate Abdomen: no organomegaly Microbiology Date/Time Source Procedure Growth Status 06/08/17 18:00 Blood Blood Culture - Preliminary NO GROWTH AFTER 24 HOURS Resulted 06/08/17 18:00 Blood Blood Culture - Preliminary NO GROWTH AFTER 24 HOURS Resulted Laboratory Tests Test 06/10/17 03:34 White Blood Count 10.5 K/UL (4.8-10.8) Red Blood Count 4.37 M/UL (4.20-5.40) Hemoglobin 13.4 G/DL (12.0-16.0) Hematocrit 41.2 % (37.0-47.0) Mean Corpuscular Volume 94 FL (80-99) Mean Corpuscular Hemoglobin 30.7 PG (27.0-31.0) Mean Corpuscular Hemoglobin Concent 32.6 G/DL (32.0-36.0) Red Cell Distribution Width 12.3 % (11.6-14.8) Platelet Count 154 K/UL (150-450) Mean Platelet Volume 6.1 FL (6.5-10.1) L Neutrophils (%) (Auto) % (45.0-75.0) Lymphocytes (%) (Auto) % (20.0-45.0) Monocytes (%) (Auto) % (1.0-10.0) Eosinophils (%) (Auto) % (0.0-3.0) Basophils (%) (Auto) % (0.0-2.0) Neutrophils % (Manual) Pending Lymphocytes % (Manual) Pending Platelet Estimate Pending Platelet Morphology Pending Sodium Level 141 MMOL/L (136-145) Potassium Level 3.5 MMOL/L (3.5-5.1) Chloride Level 108 MMOL/L (98-107) H Carbon Dioxide Level 22 MMOL/L (21-32) Anion Gap 11 mmol/L (5-15) Blood Urea Nitrogen 20 mg/dL (7-18) H Creatinine 0.8 MG/DL (0.55-1.30) Estimat Glomerular Filtration Rate mL/min (>60) Glucose Level 218 MG/DL (74-106) H Calcium Level 8.6 MG/DL (8.5-10.1) Total Bilirubin 0.5 MG/DL (0.2-1.0) Aspartate Amino Transf (AST/SGOT) 21 U/L (15-37) Alanine Aminotransferase (ALT/SGPT) 19 U/L (12-78) Alkaline Phosphatase 71 U/L (46-116) Troponin I 0.000 ng/mL (0.000-0.056) Pro-B-Type Natriuretic Peptide 869 pg/mL (0-125) H Total Protein 6.9 G/DL (6.4-8.2) Albumin 2.9 G/DL (3.4-5.0) L Globulin 4.0 g/dL Albumin/Globulin Ratio 0.7 (1.0-2.7) L Current Medications Medications (Trade) Dose Ordered Sig/Roro Route PRN Reason Start Time Stop Time Status Last Admin Dose Admin Acetaminophen (Tylenol) 650 mg Q4H PRN ORAL fever 06/08/17 21:45 07/08/17 21:44 Al Hydroxide/Mg Hydroxide (Mylanta II) 30 ml Q6H PRN ORAL dyspepsia 06/08/17 21:45 07/08/17 21:44 Albuterol/ Ipratropium (Albuterol/ Ipratropium) 3 ml Q4H PRN HHN Shortness of Breath 06/08/17 21:45 06/13/17 21:44 06/10/17 08:54 Carbidopa/Levodopa (Sinemet 25/100) 1 ea THREE TIMES A DAY ORAL 06/09/17 09:00 07/09/17 08:59 06/09/17 17:43 Cefepime HCl 1 gm/ Dextrose 55 ml @ 110 mls/hr Q24H IV 06/08/17 22:30 06/15/17 22:29 06/09/17 23:00 Heparin Sodium (Porcine) (Heparin 5000 units/ml) 5,000 units EVERY 12 HOURS SUBQ 06/09/17 09:00 07/09/17 08:59 06/09/17 21:26 Methylprednisolone Sodium Succinate (Solu-MEDROL) 60 mg EVERY 6 HOURS IV 06/09/17 12:00 07/09/17 11:59 06/10/17 06:19 Nitroglycerin (Ntg) 0.4 mg Q5MIN X 3 DOSES PRN SL Prn Chest Pain 06/08/17 21:45 07/08/17 21:44 Ondansetron HCl (Zofran) 4 mg Q6H PRN IVP Nausea & Vomiting 06/08/17 21:45 07/08/17 21:44 Polyethylene Glycol (Miralax) 17 gm DAILYPRN PRN ORAL Constipation 06/08/17 21:45 07/08/17 21:44 Potassium Chloride 10 meq/ Dextrose/Sodium Chloride 1,005 ml @ 30 mls/hr Q24H IV 06/09/17 15:15 07/09/17 15:14 06/09/17 15:27 Promethazine HCl/ Codeine (Phenergan with Codeine) 5 ml Q4H PRN ORAL For Cough 06/08/17 21:45 07/08/17 21:44 Temazepam (Restoril) 15 mg HSPRN PRN ORAL Insomnia 06/08/17 21:45 06/15/17 21:44 Vancomycin HCl (Vanco rx to dose) 1 ea DAILYPRN PRN MISC Per rx protocol 06/08/17 21:45 07/08/17 21:44 Vancomycin HCl 1 gm/Dextrose 250 ml @ 166.667 mls/hr DAILY@2300 IVPB 06/09/17 23:00 06/14/17 22:59 06/10/17 00:07 Vitamin A/Vitamin D (A & D Oint) 1 applic EVERY 12 HOURS TOPIC 06/09/17 09:00 07/09/17 08:59 06/09/17 21:25 JEFFRY MCKNIGHT M.D. Jun 10, 2017 09:24
[2017-06-10 10:01] LABS: BAND NEUTROPHILS % (MANUAL) 0 % (0-8); BASOPHILS % (MANUAL) 0 % (0-2); EOSINOPHILS % (MANUAL) 0 % (0-3); LYMPHOCYTES % (MANUAL) 8 % (20-45); NEUTROPHILS % (MANUAL) 91 % (45-75); PLATELET ESTIMATE ADEQUATE; PLATELET MORPHOLOGY NORMAL; TOTAL CELLS COUNTED 100
--- NOTE | 2017-06-10 10:56 | Diagnostic Imaging Report ---
Indication: DYSPNEA Technique: One view of the chest Comparison: 06/08/2017 Findings: The lungs and pleural spaces are clear. Heart size is upper limits of normal. Aorta is tortuous and ectatic and calcified. Old healed left upper fracture deformities are noted. Impression: No acute process
[2017-06-10 12:00] VITALS: BP 156/84
--- NOTE | 2017-06-10 12:02 | Pulmonology Progress Note ---
Assessment/Plan Problems: (1) Acute respiratory failure (2) Purulent bronchitis (3) At high risk for aspiration (4) Pneumonia (5) Peripheral edema (6) Parkinson disease Assessment/Plan improving decrease sterids swallow study pending check blood cultures, GPC in clusters, most likely contaminated ID and cardio notes reviewed echo reviewed. Subjective ROS Limited/Unobtainable: No Interval Events: improved much better Respiratory: Reports: dyspnea at rest - much less Allergies: Coded Allergies: No Known Allergies (Unverified , 01/11/14) Objective Last 24 Hour Vital Signs Date Time Temp Pulse Resp B/P (MAP) Pulse Ox O2 Delivery O2 Flow Rate FiO2 06/10/17 08:55 64 20 98 Venturi Mask 8.0 40 06/10/17 08:49 61 20 96 Venturi Mask 8.0 40 06/10/17 08:00 40 06/10/17 08:00 57 06/10/17 08:00 97.5 65 18 138/90 96 Venturi Mask 40 06/10/17 07:43 96 Venturi Mask 8.0 40 06/10/17 07:43 Venturi Mask 8.0 40 06/10/17 05:04 58 19 97 Facial 40 06/10/17 04:00 66 06/10/17 04:00 98.2 67 19 128/64 95 Venturi Mask 40 06/10/17 04:00 40 06/10/17 03:25 60 22 97 Facial 40 06/10/17 01:02 62 20 98 Facial 40 06/10/17 00:40 60 20 98 Venturi Mask 8.0 40 06/10/17 00:39 58 20 96 Venturi Mask 8.0 40 06/10/17 00:00 97.5 78 18 145/88 95 Venturi Mask 40 06/10/17 00:00 10.0 40 06/10/17 00:00 72 06/09/17 23:04 40 06/09/17 21:10 40 06/09/17 20:00 83 06/09/17 20:00 10.0 40 06/09/17 20:00 97.5 85 18 140/82 95 Venturi Mask 40 06/09/17 19:30 Venturi Mask 8.0 40 06/09/17 19:30 92 Venturi Mask 8.0 40 06/09/17 19:18 40 06/09/17 16:00 98.2 80 18 154/94 94 Venturi Mask 40 06/09/17 16:00 10.0 40 06/09/17 16:00 78 06/09/17 12:00 78 06/09/17 12:00 10.0 40 Intake and Output 06/10/17 06/11/17 19:00 07:00 Intake Total 60 ml Balance 60 ml IV Total 60 ml General Appearance: WD/WN HEENT: normocephalic, atraumatic Respiratory/Chest: chest wall non-tender, lungs clear Cardiovascular: normal peripheral pulses, regular rhythm Abdomen: soft, non tender, no organomegaly Extremities: no cyanosis, no clubbing Skin: no ulcers Neurologic/Psychiatric: no motor/sensory deficits, oriented x 3, normal mood/ affect Lymphatic: no groin adenopathy Microbiology Date/Time Source Procedure Growth Status 06/08/17 18:00 Blood Blood Culture - Preliminary Resulted 06/08/17 18:00 Blood Blood Culture - Preliminary NO GROWTH AFTER 24 HOURS Resulted Laboratory Tests 06/10/17 03:34: White Blood Count 10.5, Red Blood Count 4.37, Hemoglobin 13.4, Hematocrit 41.2, Mean Corpuscular Volume 94, Mean Corpuscular Hemoglobin 30.7, Mean Corpuscular Hemoglobin Concent 32.6, Red Cell Distribution Width 12.3, Platelet Count 154, Mean Platelet Volume 6.1L, Neutrophils (%) (Auto) , Lymphocytes (%) (Auto) , Monocytes (%) (Auto) , Eosinophils (%) (Auto) , Basophils (%) (Auto) , Differential Total Cells Counted 100, Neutrophils % (Manual) 91H, Lymphocytes % (Manual) 8L, Monocytes % (Manual) 1, Eosinophils % (Manual) 0, Basophils % ( Manual) 0, Band Neutrophils 0, Platelet Estimate Adequate, Platelet Morphology Normal, Red Blood Cell Morphology Normal, Sodium Level 141, Potassium Level 3.5 , Chloride Level 108H, Carbon Dioxide Level 22, Anion Gap 11, Blood Urea Nitrogen 20H, Creatinine 0.8, Estimat Glomerular Filtration Rate , Glucose Level 218H, Calcium Level 8.6, Total Bilirubin 0.5, Aspartate Amino Transf (AST/ SGOT) 21, Alanine Aminotransferase (ALT/SGPT) 19, Alkaline Phosphatase 71, Troponin I 0.000, Pro-B-Type Natriuretic Peptide 869H, Total Protein 6.9, Albumin 2.9L, Globulin 4.0, Albumin/Globulin Ratio 0.7L Current Medications Medications (Trade) Dose Ordered Sig/Roro Route PRN Reason Start Time Stop Time Status Last Admin Dose Admin Acetaminophen (Tylenol) 650 mg Q4H PRN ORAL fever 06/08/17 21:45 07/08/17 21:44 Al Hydroxide/Mg Hydroxide (Mylanta II) 30 ml Q6H PRN ORAL dyspepsia 06/08/17 21:45 07/08/17 21:44 Albuterol/ Ipratropium (Albuterol/ Ipratropium) 3 ml Q4H PRN HHN Shortness of Breath 06/08/17 21:45 06/13/17 21:44 06/10/17 08:54 Carbidopa/Levodopa (Sinemet 25/100) 1 ea EVERY 8 HOURS ORAL 06/10/17 14:00 07/09/17 08:59 Heparin Sodium (Porcine) (Heparin 5000 units/ml) 5,000 units EVERY 12 HOURS SUBQ 06/09/17 09:00 07/09/17 08:59 06/10/17 09:22 Levofloxacin 150 ml @ 100 mls/hr Q24H IVPB 06/10/17 10:30 06/17/17 10:29 06/10/17 10:44 Methylprednisolone Sodium Succinate (Solu-MEDROL) 60 mg EVERY 6 HOURS IV 06/09/17 12:00 07/09/17 11:59 06/10/17 06:19 Nitroglycerin (Ntg) 0.4 mg Q5MIN X 3 DOSES PRN SL Prn Chest Pain 06/08/17 21:45 07/08/17 21:44 Ondansetron HCl (Zofran) 4 mg Q6H PRN IVP Nausea & Vomiting 06/08/17 21:45 07/08/17 21:44 Polyethylene Glycol (Miralax) 17 gm DAILYPRN PRN ORAL Constipation 06/08/17 21:45 07/08/17 21:44 Potassium Chloride 10 meq/ Dextrose/Sodium Chloride 1,005 ml @ 30 mls/hr Q24H IV 06/09/17 15:15 07/09/17 15:14 06/09/17 15:27 Promethazine HCl/ Codeine (Phenergan with Codeine) 5 ml Q4H PRN ORAL For Cough 06/08/17 21:45 07/08/17 21:44 Temazepam (Restoril) 15 mg HSPRN PRN ORAL Insomnia 06/08/17 21:45 06/15/17 21:44 Vitamin A/Vitamin D (A & D Oint) 1 applic EVERY 12 HOURS TOPIC 06/09/17 09:00 07/09/17 08:59 06/10/17 09:20 KERRI YIN Jun 10, 2017 12:02
[2017-06-10] MEDS: Potassium Chloride 10 MEQ in D5 1/2NS 1,000 ML IV SCH (14:14)
[2017-06-10 16:00] VITALS: BP 127/64
--- NOTE | 2017-06-10 16:23 | Cardiology Report ---
APPROVED REPORT EKG Measurement Heart [id number] WI [id number] Sinus rhythm with premature atrial complexes Otherwise normal ECG
--- NOTE | 2017-06-10 16:56 | Cardiology Report ---
APPROVED REPORT EKG Measurement Heart [id number] MD 158P-2 [id number] Sinus rhythm with premature supraventricular complexes Nonspecific ST and T wave abnormality Abnormal ECG
[2017-06-10 20:00] VITALS: BP 127/64
[2017-06-11] VITALS: BP 110/67
[2017-06-11] MEDS: Albuterol/Ipratropium 3ml neb HHN PRN ×2 (02:33→11:13)
[2017-06-11 04:00] VITALS: BP 138/77
[2017-06-11 05:06] LABS: MEAN CORPUSCULAR HEMOGLOBIN 31.2 PG (27.0-31.0); MEAN CORPUSCULAR HGB CONC 33.5 G/DL (32.0-36.0); MEAN CORPUSCULAR VOLUME 93 FL (80-99); MEAN PLATELET VOLUME 6.2 FL (6.5-10.1); PLATELET COUNT 171 K/UL (150-450); RED BLOOD COUNT 4.18 M/UL (4.20-5.40); WHITE BLOOD COUNT 12.7 K/UL (4.8-10.8)
[2017-06-11 05:16] LABS: ALANINE AMINOTRANSFERASE 10 U/L (12-78); ALBUMIN/GLOBULIN RATIO 0.7 (1.0-2.7); ANION GAP 10 mmol/L (5-15); ASPARTATE AMINO TRANSFERASE 15 U/L (15-37); CALCIUM 8.4 MG/DL (8.5-10.1); CARBON DIOXIDE 26 MMOL/L (21-32); CHLORIDE 108 MMOL/L (98-107); CREATININE 0.8 MG/DL (0.55-1.30); POTASSIUM 3.7 MMOL/L (3.5-5.1); SODIUM 143 MMOL/L (136-145); TOTAL PROTEIN 6.6 G/DL (6.4-8.2)
[2017-06-11] MEDS: Sinemet 25/100 tab ORAL SCH ×3 (06:04→21:49)
[2017-06-11 08:00] VITALS: BP 148/84
--- NOTE | 2017-06-11 09:05 | Infectious Diseases Prog Note ---
Assessment/Plan Assessment/Plan ASSESSMENT: The patient is a 81-year-old female with, Community-acquired pneumonia - SCx NRF - CXR 06/10: The lungs and pleural spaces are clear. CONS bacteremia 1/4, m/l contaminant - repeat BCx pending - TTE neg veg Leukocytosis - improved, afebrile ( on steroids). History of sleep apnea requiring BiPAP. History of breast cancer status post lumpectomy. History of overactive bladder. History of osteoarthritis. Spinal stenosis. Parkinson disease NKDA Full Code PLAN: continue Levaquin d# 2 / 5 and DC vancomycin d# 3 ( 06/10 SP cefepime d# 2 ) taper steroids per primary Monitor CBC, temperatures Monitor BMP. Monitor chest x-ray f/u repeat blood cx Monitor cultures Subjective Allergies: Coded Allergies: No Known Allergies (Unverified , 01/11/14) Subjective remains afebrile leukocytosis improved on steroids Objective Vital Signs Last 24 Hour Vital Signs Date Time Temp Pulse Resp B/P (MAP) Pulse Ox O2 Delivery O2 Flow Rate FiO2 06/11/17 08:00 64 06/11/17 04:00 97.9 74 24 138/77 93 Nasal Cannula 4.0 06/11/17 04:00 67 06/11/17 02:43 82 22 97 Nasal Cannula 4.0 36 06/11/17 02:33 61 20 97 Nasal Cannula 4.0 36 06/11/17 00:00 97.2 68 24 110/67 95 Nasal Cannula 4.0 06/11/17 00:00 68 06/10/17 20:00 96 06/10/17 20:00 61 06/10/17 20:00 98.8 96 24 127/64 94 Nasal Cannula 4.0 06/10/17 19:40 98 Nasal Cannula 4.0 36 06/10/17 19:40 Nasal Cannula 4.0 36 06/10/17 19:38 60 20 98 Nasal Cannula 4.0 06/10/17 16:00 98.1 78 22 127/64 96 Nasal Cannula 4.0 06/10/17 16:00 78 06/10/17 14:52 81 20 98 Nasal Cannula 4.0 06/10/17 14:24 74 20 94 Nasal Cannula 4.0 06/10/17 12:00 98.1 85 22 156/84 94 Venturi Mask 40 06/10/17 11:46 73 Height (Feet): 5 Height (Inches): 0.00 Weight (Pounds): 276 General Appearance: no acute distress Respiratory/Chest: no respiratory distress Cardiovascular: normal rate, regular rhythm Abdomen: normal bowel sounds, soft, non tender, non distended Microbiology Date/Time Source Procedure Growth Status 06/08/17 18:00 Blood Blood Culture - Preliminary Staphylococcus Sp Coag Neg Resulted 06/08/17 18:00 Blood Blood Culture - Preliminary NO GROWTH AFTER 48 HOURS Resulted 06/09/17 11:00 Sputum Gram Stain - Final Complete 06/09/17 11:00 Sputum Sputum Culture - Final NORMAL UPPER RESPIRATORY MYRNA PRESENT Complete Laboratory Tests Test 06/11/17 04:15 White Blood Count 12.7 K/UL (4.8-10.8) H Red Blood Count 4.18 M/UL (4.20-5.40) L Hemoglobin 13.0 G/DL (12.0-16.0) Hematocrit 38.9 % (37.0-47.0) Mean Corpuscular Volume 93 FL (80-99) Mean Corpuscular Hemoglobin 31.2 PG (27.0-31.0) H Mean Corpuscular Hemoglobin Concent 33.5 G/DL (32.0-36.0) Red Cell Distribution Width 12.0 % (11.6-14.8) Platelet Count 171 K/UL (150-450) Mean Platelet Volume 6.2 FL (6.5-10.1) L Neutrophils (%) (Auto) % (45.0-75.0) Lymphocytes (%) (Auto) % (20.0-45.0) Monocytes (%) (Auto) % (1.0-10.0) Eosinophils (%) (Auto) % (0.0-3.0) Basophils (%) (Auto) % (0.0-2.0) Sodium Level 143 MMOL/L (136-145) Potassium Level 3.7 MMOL/L (3.5-5.1) Chloride Level 108 MMOL/L (98-107) H Carbon Dioxide Level 26 MMOL/L (21-32) Anion Gap 10 mmol/L (5-15) Blood Urea Nitrogen 26 mg/dL (7-18) H Creatinine 0.8 MG/DL (0.55-1.30) Estimat Glomerular Filtration Rate mL/min (>60) Glucose Level 172 MG/DL (74-106) H Calcium Level 8.4 MG/DL (8.5-10.1) L Total Bilirubin 0.4 MG/DL (0.2-1.0) Aspartate Amino Transf (AST/SGOT) 15 U/L (15-37) Alanine Aminotransferase (ALT/SGPT) 10 U/L (12-78) L Alkaline Phosphatase 62 U/L (46-116) Pro-B-Type Natriuretic Peptide 1168 pg/mL (0-125) H Total Protein 6.6 G/DL (6.4-8.2) Albumin 2.8 G/DL (3.4-5.0) L Globulin 3.8 g/dL Albumin/Globulin Ratio 0.7 (1.0-2.7) L Current Medications Medications (Trade) Dose Ordered Sig/Roro Route PRN Reason Start Time Stop Time Status Last Admin Dose Admin Acetaminophen (Tylenol) 650 mg Q4H PRN ORAL fever 06/08/17 21:45 07/08/17 21:44 Al Hydroxide/Mg Hydroxide (Mylanta II) 30 ml Q6H PRN ORAL dyspepsia 06/08/17 21:45 07/08/17 21:44 Albuterol/ Ipratropium (Albuterol/ Ipratropium) 3 ml Q4H PRN HHN Shortness of Breath 06/08/17 21:45 06/13/17 21:44 06/11/17 02:33 Carbidopa/Levodopa (Sinemet 25/100) 1 ea EVERY 8 HOURS ORAL 06/10/17 14:00 07/09/17 08:59 06/11/17 06:04 Heparin Sodium (Porcine) (Heparin 5000 units/ml) 5,000 units EVERY 12 HOURS SUBQ 06/09/17 09:00 07/09/17 08:59 06/10/17 21:04 Levofloxacin 150 ml @ 100 mls/hr Q24H IVPB 06/10/17 10:30 06/17/17 10:29 06/10/17 10:44 Methylprednisolone Sodium Succinate (Solu-MEDROL) 60 mg DAILY IV 06/11/17 09:00 07/09/17 11:59 Nitroglycerin (Ntg) 0.4 mg Q5MIN X 3 DOSES PRN SL Prn Chest Pain 06/08/17 21:45 07/08/17 21:44 Ondansetron HCl (Zofran) 4 mg Q6H PRN IVP Nausea & Vomiting 06/08/17 21:45 07/08/17 21:44 Polyethylene Glycol (Miralax) 17 gm DAILYPRN PRN ORAL Constipation 06/08/17 21:45 07/08/17 21:44 Potassium Chloride 10 meq/ Dextrose/Sodium Chloride 1,005 ml @ 30 mls/hr Q24H IV 06/09/17 15:15 07/09/17 15:14 06/10/17 14:14 Promethazine HCl/ Codeine (Phenergan with Codeine) 5 ml Q4H PRN ORAL For Cough 06/08/17 21:45 07/08/17 21:44 Temazepam (Restoril) 15 mg HSPRN PRN ORAL Insomnia 06/08/17 21:45 06/15/17 21:44 Vancomycin HCl (Vanco rx to dose) 1 ea DAILY PRN MISC Per rx protocol 06/10/17 15:45 07/10/17 15:44 Vancomycin HCl 1 gm/Dextrose 250 ml @ 166.667 mls/hr DAILY@2300 IVPB 06/09/17 23:00 06/14/17 22:59 06/10/17 22:59 Vitamin A/Vitamin D (A & D Oint) 1 applic EVERY 12 HOURS TOPIC 06/09/17 09:00 07/09/17 08:59 06/10/17 21:05 PIERRE CALVIN Jun 11, 2017 09:05
[2017-06-11] MEDS: Vitamin A&D Oint 2oz Tube TOPIC SCH ×2 (09:27→21:00)
[2017-06-11] MEDS: Solu-MEDROL 125mg Inj IV SCH (09:28)
[2017-06-11] MEDS: Heparin 5000 units/ml inj SUBQ SCH ×2 (10:00→21:50)
--- NOTE | 2017-06-11 11:57 | Pulmonology Progress Note ---
Assessment/Plan Problems: (1) Acute respiratory failure (2) Purulent bronchitis (3) At high risk for aspiration (4) Pneumonia (5) Peripheral edema (6) Parkinson disease Assessment/Plan continues to improve on nasal cannula now decrease sterids swallow study pending, video wallow pending check blood cultures, GPC in clusters, most likely contaminated ID and cardio notes reviewed, ABx were adjusted. continue IV fluids 30 CC/hour echo reviewed. Subjective ROS Limited/Unobtainable: No Constitutional: Reports: no symptoms HEENT: Repors: no symptoms Allergies: Coded Allergies: No Known Allergies (Unverified , 01/11/14) Objective Last 24 Hour Vital Signs Date Time Temp Pulse Resp B/P (MAP) Pulse Ox O2 Delivery O2 Flow Rate FiO2 06/11/17 10:52 57 22 97 Nasal Cannula 4.0 36 06/11/17 10:41 55 20 97 Nasal Cannula 4.0 36 06/11/17 08:00 97.7 63 20 148/84 93 Nasal Cannula 4.0 06/11/17 08:00 64 06/11/17 07:33 94 Nasal Cannula 4.0 36 06/11/17 07:33 Nasal Cannula 4.0 36 06/11/17 04:00 97.9 74 24 138/77 93 Nasal Cannula 4.0 06/11/17 04:00 67 06/11/17 02:43 82 22 97 Nasal Cannula 4.0 36 06/11/17 02:33 61 20 97 Nasal Cannula 4.0 36 06/11/17 00:00 97.2 68 24 110/67 95 Nasal Cannula 4.0 06/11/17 00:00 68 06/10/17 20:00 96 06/10/17 20:00 61 06/10/17 20:00 98.8 96 24 127/64 94 Nasal Cannula 4.0 06/10/17 19:40 98 Nasal Cannula 4.0 36 06/10/17 19:40 Nasal Cannula 4.0 36 06/10/17 19:38 60 20 98 Nasal Cannula 4.0 06/10/17 16:00 98.1 78 22 127/64 96 Nasal Cannula 4.0 06/10/17 16:00 78 06/10/17 14:52 81 20 98 Nasal Cannula 4.0 06/10/17 14:24 74 20 94 Nasal Cannula 4.0 06/10/17 12:00 98.1 85 22 156/84 94 Venturi Mask 40 General Appearance: WD/WN HEENT: normocephalic, atraumatic Respiratory/Chest: chest wall non-tender, lungs clear Abdomen: normal bowel sounds, soft, non tender Genitourinary: normal external genitalia Extremities: no clubbing Skin: no rash Microbiology Date/Time Source Procedure Growth Status 06/08/17 18:00 Blood Blood Culture - Preliminary Staphylococcus Sp Coag Neg Resulted 06/08/17 18:00 Blood Blood Culture - Preliminary NO GROWTH AFTER 48 HOURS Resulted 06/09/17 11:00 Sputum Gram Stain - Final Complete 06/09/17 11:00 Sputum Sputum Culture - Final NORMAL UPPER RESPIRATORY MYRNA PRESENT Complete 06/08/17 20:00 Nasal Nares Right MRSA Culture - Final NO METHICILLIN RESISTANT STAPH AUREUS... Complete Laboratory Tests 06/11/17 04:15: White Blood Count 12.7H, Red Blood Count 4.18L, Hemoglobin 13.0, Hematocrit 38.9 , Mean Corpuscular Volume 93, Mean Corpuscular Hemoglobin 31.2H, Mean Corpuscular Hemoglobin Concent 33.5, Red Cell Distribution Width 12.0, Platelet Count 171, Mean Platelet Volume 6.2L, Neutrophils (%) (Auto) , Lymphocytes (%) ( Auto) , Monocytes (%) (Auto) , Eosinophils (%) (Auto) , Basophils (%) (Auto) , Sodium Level 143, Potassium Level 3.7, Chloride Level 108H, Carbon Dioxide Level 26, Anion Gap 10, Blood Urea Nitrogen 26H, Creatinine 0.8, Estimat Glomerular Filtration Rate , Glucose Level 172H, Calcium Level 8.4L, Total Bilirubin 0.4, Aspartate Amino Transf (AST/SGOT) 15, Alanine Aminotransferase ( ALT/SGPT) 10L, Alkaline Phosphatase 62, Pro-B-Type Natriuretic Peptide 1168H, Total Protein 6.6, Albumin 2.8L, Globulin 3.8, Albumin/Globulin Ratio 0.7L Current Medications Medications (Trade) Dose Ordered Sig/Roro Route PRN Reason Start Time Stop Time Status Last Admin Dose Admin Acetaminophen (Tylenol) 650 mg Q4H PRN ORAL fever 06/08/17 21:45 07/08/17 21:44 Al Hydroxide/Mg Hydroxide (Mylanta II) 30 ml Q6H PRN ORAL dyspepsia 06/08/17 21:45 07/08/17 21:44 Albuterol/ Ipratropium (Albuterol/ Ipratropium) 3 ml Q4HRT HHN 06/11/17 15:00 06/16/17 14:59 Carbidopa/Levodopa (Sinemet 25/100) 1 ea EVERY 8 HOURS ORAL 06/10/17 14:00 07/09/17 08:59 06/11/17 06:04 Heparin Sodium (Porcine) (Heparin 5000 units/ml) 5,000 units EVERY 12 HOURS SUBQ 06/09/17 09:00 07/09/17 08:59 06/11/17 10:00 Levofloxacin 150 ml @ 100 mls/hr Q24H IVPB 06/10/17 10:30 06/17/17 10:29 06/11/17 09:27 Methylprednisolone Sodium Succinate (Solu-MEDROL) 60 mg DAILY IV 06/11/17 09:00 07/09/17 11:59 06/11/17 09:28 Nitroglycerin (Ntg) 0.4 mg Q5MIN X 3 DOSES PRN SL Prn Chest Pain 06/08/17 21:45 07/08/17 21:44 Ondansetron HCl (Zofran) 4 mg Q6H PRN IVP Nausea & Vomiting 06/08/17 21:45 07/08/17 21:44 Polyethylene Glycol (Miralax) 17 gm DAILYPRN PRN ORAL Constipation 06/08/17 21:45 07/08/17 21:44 Potassium Chloride 10 meq/ Dextrose/Sodium Chloride 1,005 ml @ 30 mls/hr Q24H IV 06/09/17 15:15 07/09/17 15:14 06/10/17 14:14 Promethazine HCl/ Codeine (Phenergan with Codeine) 5 ml Q4H PRN ORAL For Cough 06/08/17 21:45 07/08/17 21:44 Temazepam (Restoril) 15 mg HSPRN PRN ORAL Insomnia 06/08/17 21:45 06/15/17 21:44 Vancomycin HCl (Vanco rx to dose) 1 ea DAILY PRN MISC Per rx protocol 06/10/17 15:45 06/11/17 23:59 Vancomycin HCl 1 gm/Dextrose 250 ml @ 166.667 mls/hr DAILY@2300 IVPB 06/09/17 23:00 06/11/17 23:59 06/10/17 22:59 Vitamin A/Vitamin D (A & D Oint) 1 applic EVERY 12 HOURS TOPIC 06/09/17 09:00 07/09/17 08:59 06/11/17 09:27 KERRI YIN Jun 11, 2017 11:57
[2017-06-11 12:00] VITALS: BP 154/93
[2017-06-11] MEDS: Potassium Chloride 10 MEQ in D5 1/2NS 1,000 ML IV SCH (14:18)
[2017-06-11] MEDS: Albuterol/Ipratropium 3ml neb HHN SCH ×2 (14:43→20:01)
[2017-06-11 16:00] VITALS: BP 151/76
--- NOTE | 2017-06-11 16:49 | Diagnostic Imaging Report ---
APPROVED REPORT CPT Code: 11618 Present Symptoms Lower Extremity Pain: Lower Extremity Edema: Bilateral Shortness of breath Technically difficult, limited study due to vessel depth (mid to distal thigh). BILATERAL: Imaging reveals a patent deep venous system bilaterally. There is no evidence of thrombus within the femoral, popliteal or tibial segments. The greater saphenous veins are also within normal limits. Doppler indicates normal spontaneous flow within these segments. The popliteal and calf veins were not well visualized bilaterally.
--- NOTE | 2017-06-11 17:29 | Cardiology Progress Note ---
Assessment/Plan Assessment/Plan 1. Shortness of breath and coughing. 2. Obesity. 3. History of breast cancer. 4. Parkinsonism. 5. History of meningioma. 6. History of hypercalcemia. 7. pneumonia 8. Midl 9. Mild pulm htn wbc still elevated tele sinus , pac one short episode of wide complex tachy echo normal wall motion mild pasp 43 ekg noted sinus pac lytes noted duplex neg elevated bp heplock ivf if tolerates meals now eating her first meal consider low dose arbs abx pulm rxn Subjective Cardiovascular: Denies: chest pain, lightheadedness, palpitations Respiratory: Reports: cough, Denies: shortness of breath Gastrointestinal/Abdominal: Denies: abdominal pain Genitourinary: Denies: burning Objective Last 24 Hour Vital Signs Date Time Temp Pulse Resp B/P (MAP) Pulse Ox O2 Delivery O2 Flow Rate FiO2 06/11/17 16:00 98.1 72 18 151/76 93 Nasal Cannula 4.0 06/11/17 16:00 79 06/11/17 15:02 72 22 96 Nasal Cannula 4.0 36 06/11/17 14:44 66 22 93 Nasal Cannula 4.0 36 06/11/17 14:00 65 06/11/17 12:00 97.9 65 18 154/93 95 Nasal Cannula 4.0 06/11/17 10:52 57 22 97 Nasal Cannula 4.0 36 06/11/17 10:41 55 20 97 Nasal Cannula 4.0 36 06/11/17 08:00 97.7 63 20 148/84 93 Nasal Cannula 4.0 06/11/17 08:00 64 06/11/17 07:33 94 Nasal Cannula 4.0 36 06/11/17 07:33 Nasal Cannula 4.0 36 06/11/17 04:00 97.9 74 24 138/77 93 Nasal Cannula 4.0 06/11/17 04:00 67 06/11/17 02:43 82 22 97 Nasal Cannula 4.0 36 06/11/17 02:33 61 20 97 Nasal Cannula 4.0 36 06/11/17 00:00 97.2 68 24 110/67 95 Nasal Cannula 4.0 06/11/17 00:00 68 06/10/17 20:00 96 06/10/17 20:00 61 06/10/17 20:00 98.8 96 24 127/64 94 Nasal Cannula 4.0 06/10/17 19:40 98 Nasal Cannula 4.0 36 06/10/17 19:40 Nasal Cannula 4.0 36 06/10/17 19:38 60 20 98 Nasal Cannula 4.0 General Appearance: no apparent distress, alert Neck: supple Cardiovascular: normal rate, regular rhythm Respiratory/Chest: lungs clear, expiratory wheezing - few Abdomen: normal bowel sounds, non tender, soft Extremities: trace edema Intake and Output 06/11/17 06/12/17 19:00 07:00 Intake Total 500 ml Balance 500 ml IV Total 500 ml Laboratory Tests Test 06/11/17 04:15 White Blood Count 12.7 K/UL (4.8-10.8) H Red Blood Count 4.18 M/UL (4.20-5.40) L Hemoglobin 13.0 G/DL (12.0-16.0) Hematocrit 38.9 % (37.0-47.0) Mean Corpuscular Volume 93 FL (80-99) Mean Corpuscular Hemoglobin 31.2 PG (27.0-31.0) H Mean Corpuscular Hemoglobin Concent 33.5 G/DL (32.0-36.0) Red Cell Distribution Width 12.0 % (11.6-14.8) Platelet Count 171 K/UL (150-450) Mean Platelet Volume 6.2 FL (6.5-10.1) L Neutrophils (%) (Auto) % (45.0-75.0) Lymphocytes (%) (Auto) % (20.0-45.0) Monocytes (%) (Auto) % (1.0-10.0) Eosinophils (%) (Auto) % (0.0-3.0) Basophils (%) (Auto) % (0.0-2.0) Sodium Level 143 MMOL/L (136-145) Potassium Level 3.7 MMOL/L (3.5-5.1) Chloride Level 108 MMOL/L (98-107) H Carbon Dioxide Level 26 MMOL/L (21-32) Anion Gap 10 mmol/L (5-15) Blood Urea Nitrogen 26 mg/dL (7-18) H Creatinine 0.8 MG/DL (0.55-1.30) Estimat Glomerular Filtration Rate mL/min (>60) Glucose Level 172 MG/DL (74-106) H Calcium Level 8.4 MG/DL (8.5-10.1) L Total Bilirubin 0.4 MG/DL (0.2-1.0) Aspartate Amino Transf (AST/SGOT) 15 U/L (15-37) Alanine Aminotransferase (ALT/SGPT) 10 U/L (12-78) L Alkaline Phosphatase 62 U/L (46-116) Pro-B-Type Natriuretic Peptide 1168 pg/mL (0-125) H Total Protein 6.6 G/DL (6.4-8.2) Albumin 2.8 G/DL (3.4-5.0) L Globulin 3.8 g/dL Albumin/Globulin Ratio 0.7 (1.0-2.7) L Microbiology Date/Time Source Procedure Growth Status 06/08/17 18:00 Blood Blood Culture - Preliminary Staphylococcus Sp Coag Neg Resulted 06/08/17 18:00 Blood Blood Culture - Preliminary NO GROWTH AFTER 48 HOURS Resulted 06/09/17 11:00 Sputum Gram Stain - Final Complete 06/09/17 11:00 Sputum Sputum Culture - Final NORMAL UPPER RESPIRATORY MYRNA PRESENT Complete 06/08/17 20:00 Nasal Nares Right MRSA Culture - Final NO METHICILLIN RESISTANT STAPH AUREUS... Complete FRANDY RAUSCH Jun 11, 2017 17:29
[2017-06-11 20:00] VITALS: BP 156/88
[2017-06-12] VITALS: BP 153/82
[2017-06-12] MEDS: Albuterol/Ipratropium 3ml neb HHN SCH ×6 (00:01→20:46)
[2017-06-12 04:00] VITALS: BP 150/81
[2017-06-12 04:39] LABS: BASOPHILS % (AUTO) 0.3 % (0.0-2.0); LYMPHOCYTES % (AUTO) 11.7 % (20.0-45.0); MEAN CORPUSCULAR HEMOGLOBIN 31.2 PG (27.0-31.0); MEAN CORPUSCULAR HGB CONC 33.4 G/DL (32.0-36.0); MEAN CORPUSCULAR VOLUME 93 FL (80-99); MEAN PLATELET VOLUME 6.6 FL (6.5-10.1); MONOCYTES % (AUTO) 5.2 % (1.0-10.0); NEUTROPHILS % (AUTO) 82.8 % (45.0-75.0); PLATELET COUNT 169 K/UL (150-450); RED BLOOD COUNT 4.11 M/UL (4.20-5.40); RED CELL DISTRIBUTION WIDTH 11.6 % (11.6-14.8); WHITE BLOOD COUNT 9.1 K/UL (4.8-10.8)
[2017-06-12 05:17] LABS: ALANINE AMINOTRANSFERASE 11 U/L (12-78); ALBUMIN/GLOBULIN RATIO 0.8 (1.0-2.7); ANION GAP 9 mmol/L (5-15); ASPARTATE AMINO TRANSFERASE 14 U/L (15-37); CALCIUM 8.3 MG/DL (8.5-10.1); CARBON DIOXIDE 24 MMOL/L (21-32); CHLORIDE 109 MMOL/L (98-107); CREATININE 0.8 MG/DL (0.55-1.30); CRP QUANT 3.7 mg/dL (0.00-0.90); MAGNESIUM 2.1 MG/DL (1.8-2.4); PHOSPHORUS 1.9 MG/DL (2.5-4.9); POTASSIUM 3.9 MMOL/L (3.5-5.1); SODIUM 142 MMOL/L (136-145); TOTAL PROTEIN 6.6 G/DL (6.4-8.2)
[2017-06-12] MEDS: Sinemet 25/100 tab ORAL SCH ×3 (06:15→22:00)
[2017-06-12 06:27] LABS: ERYTHROCYTE SEDIMENTATION RATE 64 MM/HR (0-30)
[2017-06-12 08:00] VITALS: BP 150/87
[2017-06-12] MEDS: Solu-MEDROL 125mg Inj IV SCH (08:38)
[2017-06-12] MEDS: Vitamin A&D Oint 2oz Tube TOPIC SCH ×2 (08:38→21:00)
[2017-06-12] MEDS: Heparin 5000 units/ml inj SUBQ SCH ×2 (08:47→22:02)
[2017-06-12 12:00] VITALS: BP 165/95
--- NOTE | 2017-06-12 12:34 | Infectious Diseases Prog Note ---
Assessment/Plan Assessment/Plan ASSESSMENT: The patient is a 81-year-old female with, Community-acquired pneumonia - SCx NRF - CXR 06/10: The lungs and pleural spaces are clear. CONS bacteremia 1/4, m/l contaminant - repeat BCx NGTD - TTE neg veg Leukocytosis - resolved, afebrile ( on steroids). History of sleep apnea requiring BiPAP. History of breast cancer status post lumpectomy. History of overactive bladder. History of osteoarthritis. Spinal stenosis. Parkinson disease NKDA Full Code PLAN: continue Levaquin d# 3 / 5 ( 06/11 SP vancomycin d# 3 ) ( 06/10 SP cefepime d# 2 ) taper steroids per primary Monitor CBC, temperatures Monitor BMP. Monitor chest x-ray f/u repeat blood cx Monitor cultures Subjective Allergies: Coded Allergies: No Known Allergies (Unverified , 01/11/14) Subjective remains afebrile leukocytosis resolved on steroids Objective Vital Signs Last 24 Hour Vital Signs Date Time Temp Pulse Resp B/P (MAP) Pulse Ox O2 Delivery O2 Flow Rate FiO2 06/12/17 12:00 97.7 75 19 165/95 96 Nasal Cannula 4.0 06/12/17 11:19 72 20 97 Nasal Cannula 4.0 36 06/12/17 08:00 83 06/12/17 08:00 97.9 87 18 150/87 96 Nasal Cannula 4.0 06/12/17 07:47 92 20 98 Nasal Cannula 4.0 36 06/12/17 07:36 84 22 95 Nasal Cannula 4.0 36 06/12/17 07:35 Nasal Cannula 4.0 36 06/12/17 07:35 95 Nasal Cannula 4.0 36 06/12/17 04:00 60 06/12/17 04:00 98.0 60 24 150/81 95 Nasal Cannula 4.0 06/12/17 03:27 92 20 98 Nasal Cannula 4.0 36 06/12/17 03:18 62 20 95 Nasal Cannula 4.0 36 06/12/17 00:09 65 20 95 Nasal Cannula 4.0 36 06/12/17 00:00 66 06/12/17 00:00 98.2 66 24 153/82 94 Nasal Cannula 4.0 06/11/17 23:59 68 20 96 Nasal Cannula 4.0 36 06/11/17 20:10 74 20 95 Nasal Cannula 4.0 36 06/11/17 20:00 95 Nasal Cannula 4.0 36 06/11/17 20:00 79 20 95 Nasal Cannula 4.0 36 06/11/17 20:00 78 06/11/17 20:00 Nasal Cannula 4.0 36 06/11/17 20:00 98.0 76 24 156/88 94 Nasal Cannula 4.0 06/11/17 16:00 98.1 72 18 151/76 93 Nasal Cannula 4.0 06/11/17 16:00 79 06/11/17 15:02 72 22 96 Nasal Cannula 4.0 36 06/11/17 14:44 66 22 93 Nasal Cannula 4.0 36 06/11/17 14:00 65 Height (Feet): 5 Height (Inches): 0.00 Weight (Pounds): 276 General Appearance: no acute distress Respiratory/Chest: no respiratory distress Cardiovascular: normal rate, regular rhythm Abdomen: normal bowel sounds, soft, non tender, non distended Microbiology Date/Time Source Procedure Growth Status 06/10/17 14:45 Blood Blood Culture - Preliminary NO GROWTH AFTER 24 HOURS Resulted 06/10/17 14:40 Blood Blood Culture - Preliminary NO GROWTH AFTER 24 HOURS Resulted Laboratory Tests Test 06/12/17 04:15 White Blood Count 9.1 K/UL (4.8-10.8) Red Blood Count 4.11 M/UL (4.20-5.40) L Hemoglobin 12.8 G/DL (12.0-16.0) Hematocrit 38.3 % (37.0-47.0) Mean Corpuscular Volume 93 FL (80-99) Mean Corpuscular Hemoglobin 31.2 PG (27.0-31.0) H Mean Corpuscular Hemoglobin Concent 33.4 G/DL (32.0-36.0) Red Cell Distribution Width 11.6 % (11.6-14.8) Platelet Count 169 K/UL (150-450) Mean Platelet Volume 6.6 FL (6.5-10.1) Neutrophils (%) (Auto) 82.8 % (45.0-75.0) H Lymphocytes (%) (Auto) 11.7 % (20.0-45.0) L Monocytes (%) (Auto) 5.2 % (1.0-10.0) Eosinophils (%) (Auto) 0.0 % (0.0-3.0) Basophils (%) (Auto) 0.3 % (0.0-2.0) Erythrocyte Sedimentation Rate 64 MM/HR (0-30) H Sodium Level 142 MMOL/L (136-145) Potassium Level 3.9 MMOL/L (3.5-5.1) Chloride Level 109 MMOL/L (98-107) H Carbon Dioxide Level 24 MMOL/L (21-32) Anion Gap 9 mmol/L (5-15) Blood Urea Nitrogen 23 mg/dL (7-18) H Creatinine 0.8 MG/DL (0.55-1.30) Estimat Glomerular Filtration Rate mL/min (>60) Glucose Level 171 MG/DL (74-106) H Calcium Level 8.3 MG/DL (8.5-10.1) L Phosphorus Level 1.9 MG/DL (2.5-4.9) L Magnesium Level 2.1 MG/DL (1.8-2.4) Total Bilirubin 0.4 MG/DL (0.2-1.0) Aspartate Amino Transf (AST/SGOT) 14 U/L (15-37) L Alanine Aminotransferase (ALT/SGPT) 11 U/L (12-78) L Alkaline Phosphatase 56 U/L (46-116) C-Reactive Protein, Quantitative 3.7 mg/dL (0.00-0.90) H Total Protein 6.6 G/DL (6.4-8.2) Albumin 3.0 G/DL (3.4-5.0) L Globulin 3.6 g/dL Albumin/Globulin Ratio 0.8 (1.0-2.7) L Current Medications Medications (Trade) Dose Ordered Sig/Roro Route PRN Reason Start Time Stop Time Status Last Admin Dose Admin Acetaminophen (Tylenol) 650 mg Q4H PRN ORAL fever 06/08/17 21:45 07/08/17 21:44 Al Hydroxide/Mg Hydroxide (Mylanta II) 30 ml Q6H PRN ORAL dyspepsia 06/08/17 21:45 07/08/17 21:44 Albuterol/ Ipratropium (Albuterol/ Ipratropium) 3 ml Q4HRT HHN 06/11/17 15:00 06/16/17 14:59 11/17/17 11:19 Carbidopa/Levodopa (Sinemet 25/100) 1 ea EVERY 8 HOURS ORAL 06/10/17 14:00 07/09/17 08:59 06/12/17 06:15 Heparin Sodium (Porcine) (Heparin 5000 units/ml) 5,000 units EVERY 12 HOURS SUBQ 06/09/17 09:00 07/09/17 08:59 06/12/17 08:47 Levofloxacin 150 ml @ 100 mls/hr Q24H IVPB 06/10/17 10:30 06/17/17 10:29 06/12/17 11:44 Methylprednisolone Sodium Succinate (Solu-MEDROL) 60 mg DAILY IV 06/11/17 09:00 07/09/17 11:59 06/12/17 08:38 Nitroglycerin (Ntg) 0.4 mg Q5MIN X 3 DOSES PRN SL Prn Chest Pain 06/08/17 21:45 07/08/17 21:44 Ondansetron HCl (Zofran) 4 mg Q6H PRN IVP Nausea & Vomiting 06/08/17 21:45 07/08/17 21:44 Polyethylene Glycol (Miralax) 17 gm DAILYPRN PRN ORAL Constipation 06/08/17 21:45 07/08/17 21:44 Potassium Chloride 10 meq/ Dextrose/Sodium Chloride 1,005 ml @ 30 mls/hr Q24H IV 06/09/17 15:15 07/09/17 15:14 06/11/17 14:18 Promethazine HCl/ Codeine (Phenergan with Codeine) 5 ml Q4H PRN ORAL For Cough 06/08/17 21:45 07/08/17 21:44 Temazepam (Restoril) 15 mg HSPRN PRN ORAL Insomnia 06/08/17 21:45 06/15/17 21:44 Vitamin A/Vitamin D (A & D Oint) 1 applic EVERY 12 HOURS TOPIC 06/09/17 09:00 07/09/17 08:59 06/12/17 08:38 PIRERE CALVIN Jun 12, 2017 12:34
--- NOTE | 2017-06-12 12:36 | Wound Nurse Progress Note ---
Wound RN Progress Note Wound Consult #1 Left buttock stage II pressure ulcer. Noted good progress. #2 Left ischial tuberosity stage II pressure ulcer. Resolved. #3 Right and left breast and breast folds, noted with denuded skin and purplish discolorations. No discharges/drainage noted at this time. Will cont to monitor. Reassessed this Pt today. Noted good progress on Left buttock. Left ischial tuberosity stage II resolved. Will cont to same wound care treatment and recommendations. Below. Recommendations -Left buttock stage II pressure ulcer, Cleanse with saline, pat dry, apply Triad cream, cover with Biatain silicone drg daily and PRN soiled/dislodged -Keep clean and dry -Turn and reposition -Optimize nutrition -Low air loss mattress -Offload both heels -Heel protector on both heels -Assess and f/u accordingly for any changes ADRIANA DURAN RN Jun 12, 2017 12:36
[2017-06-12] MEDS: Potassium Chloride 10 MEQ in D5 1/2NS 1,000 ML IV SCH (14:46)
[2017-06-12 16:00] VITALS: BP 151/85
--- NOTE | 2017-06-12 17:54 | Cardiology Progress Note ---
Assessment/Plan Assessment/Plan 1. Shortness of breath and coughing. 2. Obesity. 3. History of breast cancer. 4. Parkinsonism. 5. History of meningioma. 6. History of hypercalcemia. 7. pneumonia 8. Midl 9. Mild pulm htn wbc better tele sinus , echo normal wall motion mild pasp 43 duplex neg elevated bp heplock ivf low dose arbs abx pulm rxn Subjective Cardiovascular: Denies: chest pain, lightheadedness Respiratory: Reports: shortness of breath, other - spasm in her thorat with cough Gastrointestinal/Abdominal: Denies: abdomen distended, abdominal pain Genitourinary: Denies: burning Objective Last 24 Hour Vital Signs Date Time Temp Pulse Resp B/P (MAP) Pulse Ox O2 Delivery O2 Flow Rate FiO2 06/12/17 16:00 97.7 68 18 151/85 96 Nasal Cannula 4.0 06/12/17 16:00 71 06/12/17 15:16 84 20 99 Nasal Cannula 4.0 36 06/12/17 15:06 80 18 97 Nasal Cannula 4.0 36 06/12/17 12:00 84 06/12/17 12:00 97.7 75 19 165/95 96 Nasal Cannula 4.0 06/12/17 11:29 90 18 99 Nasal Cannula 4.0 36 06/12/17 11:19 72 20 97 Nasal Cannula 4.0 36 06/12/17 08:00 83 06/12/17 08:00 97.9 87 18 150/87 96 Nasal Cannula 4.0 06/12/17 07:47 92 20 98 Nasal Cannula 4.0 36 06/12/17 07:36 84 22 95 Nasal Cannula 4.0 36 06/12/17 07:35 Nasal Cannula 4.0 36 06/12/17 07:35 95 Nasal Cannula 4.0 36 06/12/17 04:00 60 06/12/17 04:00 98.0 60 24 150/81 95 Nasal Cannula 4.0 06/12/17 03:27 92 20 98 Nasal Cannula 4.0 36 06/12/17 03:18 62 20 95 Nasal Cannula 4.0 36 06/12/17 00:09 65 20 95 Nasal Cannula 4.0 36 06/12/17 00:00 66 06/12/17 00:00 98.2 66 24 153/82 94 Nasal Cannula 4.0 06/11/17 23:59 68 20 96 Nasal Cannula 4.0 36 06/11/17 20:10 74 20 95 Nasal Cannula 4.0 36 06/11/17 20:00 95 Nasal Cannula 4.0 36 06/11/17 20:00 79 20 95 Nasal Cannula 4.0 36 06/11/17 20:00 78 06/11/17 20:00 Nasal Cannula 4.0 36 06/11/17 20:00 98.0 76 24 156/88 94 Nasal Cannula 4.0 General Appearance: no apparent distress, alert, obese Neck: supple Cardiovascular: normal rate, regular rhythm Respiratory/Chest: expiratory wheezing, inspiratory wheezing Abdomen: normal bowel sounds, non tender, soft Extremities: no swelling Intake and Output 06/12/17 06/13/17 19:00 07:00 Intake Total 540 ml Balance 540 ml Intake Oral 180 ml IV Total 360 ml # Voids 1 Laboratory Tests Test 06/12/17 04:15 White Blood Count 9.1 K/UL (4.8-10.8) Red Blood Count 4.11 M/UL (4.20-5.40) L Hemoglobin 12.8 G/DL (12.0-16.0) Hematocrit 38.3 % (37.0-47.0) Mean Corpuscular Volume 93 FL (80-99) Mean Corpuscular Hemoglobin 31.2 PG (27.0-31.0) H Mean Corpuscular Hemoglobin Concent 33.4 G/DL (32.0-36.0) Red Cell Distribution Width 11.6 % (11.6-14.8) Platelet Count 169 K/UL (150-450) Mean Platelet Volume 6.6 FL (6.5-10.1) Neutrophils (%) (Auto) 82.8 % (45.0-75.0) H Lymphocytes (%) (Auto) 11.7 % (20.0-45.0) L Monocytes (%) (Auto) 5.2 % (1.0-10.0) Eosinophils (%) (Auto) 0.0 % (0.0-3.0) Basophils (%) (Auto) 0.3 % (0.0-2.0) Erythrocyte Sedimentation Rate 64 MM/HR (0-30) H Sodium Level 142 MMOL/L (136-145) Potassium Level 3.9 MMOL/L (3.5-5.1) Chloride Level 109 MMOL/L (98-107) H Carbon Dioxide Level 24 MMOL/L (21-32) Anion Gap 9 mmol/L (5-15) Blood Urea Nitrogen 23 mg/dL (7-18) H Creatinine 0.8 MG/DL (0.55-1.30) Estimat Glomerular Filtration Rate mL/min (>60) Glucose Level 171 MG/DL (74-106) H Calcium Level 8.3 MG/DL (8.5-10.1) L Phosphorus Level 1.9 MG/DL (2.5-4.9) L Magnesium Level 2.1 MG/DL (1.8-2.4) Total Bilirubin 0.4 MG/DL (0.2-1.0) Aspartate Amino Transf (AST/SGOT) 14 U/L (15-37) L Alanine Aminotransferase (ALT/SGPT) 11 U/L (12-78) L Alkaline Phosphatase 56 U/L (46-116) C-Reactive Protein, Quantitative 3.7 mg/dL (0.00-0.90) H Total Protein 6.6 G/DL (6.4-8.2) Albumin 3.0 G/DL (3.4-5.0) L Globulin 3.6 g/dL Albumin/Globulin Ratio 0.8 (1.0-2.7) L Microbiology Date/Time Source Procedure Growth Status 06/10/17 14:45 Blood Blood Culture - Preliminary NO GROWTH AFTER 24 HOURS Resulted 06/10/17 14:40 Blood Blood Culture - Preliminary NO GROWTH AFTER 24 HOURS Resulted FRANDY RAUSCH Jun 12, 2017 17:54
[2017-06-12 20:00] VITALS: BP 156/90
--- NOTE | 2017-06-12 23:00 | Pulmonology Progress Note ---
Assessment/Plan Problems: (1) Acute respiratory failure (2) Purulent bronchitis (3) At high risk for aspiration (4) Pneumonia (5) Peripheral edema (6) Parkinson disease Assessment/Plan continues to improve on nasal cannula now decrease sterids swallow study pending, video wallow pending check blood cultures, GPC in clusters, most likely contaminated ID and cardio notes reviewed, ABx were adjusted. continue IV fluids 30 CC/hour echo reviewed. Subjective Allergies: Coded Allergies: No Known Allergies (Unverified , 01/11/14) Objective Last 24 Hour Vital Signs Date Time Temp Pulse Resp B/P (MAP) Pulse Ox O2 Delivery O2 Flow Rate FiO2 06/12/17 21:06 85 20 97 Nasal Cannula 4.0 36 06/12/17 20:52 64 18 96 Nasal Cannula 4.0 36 06/12/17 20:51 Nasal Cannula 4.0 36 06/12/17 20:50 96 Nasal Cannula 4.0 36 06/12/17 20:00 97.6 68 24 156/90 97 Nasal Cannula 4.0 06/12/17 20:00 70 06/12/17 16:00 97.7 68 18 151/85 96 Nasal Cannula 4.0 06/12/17 16:00 71 06/12/17 15:16 84 20 99 Nasal Cannula 4.0 36 06/12/17 15:06 80 18 97 Nasal Cannula 4.0 36 06/12/17 12:00 84 06/12/17 12:00 97.7 75 19 165/95 96 Nasal Cannula 4.0 06/12/17 11:29 90 18 99 Nasal Cannula 4.0 36 06/12/17 11:19 72 20 97 Nasal Cannula 4.0 36 06/12/17 08:00 83 06/12/17 08:00 97.9 87 18 150/87 96 Nasal Cannula 4.0 06/12/17 07:47 92 20 98 Nasal Cannula 4.0 36 06/12/17 07:36 84 22 95 Nasal Cannula 4.0 36 06/12/17 07:35 Nasal Cannula 4.0 36 06/12/17 07:35 95 Nasal Cannula 4.0 36 06/12/17 04:00 60 06/12/17 04:00 98.0 60 24 150/81 95 Nasal Cannula 4.0 06/12/17 03:27 92 20 98 Nasal Cannula 4.0 36 06/12/17 03:18 62 20 95 Nasal Cannula 4.0 36 06/12/17 00:09 65 20 95 Nasal Cannula 4.0 36 06/12/17 00:00 66 06/12/17 00:00 98.2 66 24 153/82 94 Nasal Cannula 4.0 06/11/17 23:59 68 20 96 Nasal Cannula 4.0 36 Intake and Output 06/12/17 06/13/17 19:00 07:00 Intake Total 650 ml Output Total 400 ml Balance 250 ml Intake Oral 230 ml IV Total 420 ml Output Urine Total 400 ml # Voids 1 # Bowel Movements 1 Microbiology Date/Time Source Procedure Growth Status 06/10/17 14:45 Blood Blood Culture - Preliminary NO GROWTH AFTER 24 HOURS Resulted 06/10/17 14:40 Blood Blood Culture - Preliminary NO GROWTH AFTER 24 HOURS Resulted Laboratory Tests 06/12/17 04:15: White Blood Count 9.1, Red Blood Count 4.11L, Hemoglobin 12.8, Hematocrit 38.3, Mean Corpuscular Volume 93, Mean Corpuscular Hemoglobin 31.2H, Mean Corpuscular Hemoglobin Concent 33.4, Red Cell Distribution Width 11.6, Platelet Count 169, Mean Platelet Volume 6.6, Neutrophils (%) (Auto) 82.8H, Lymphocytes (%) (Auto) 11.7L, Monocytes (%) (Auto) 5.2, Eosinophils (%) (Auto) 0.0, Basophils (%) (Auto ) 0.3, Erythrocyte Sedimentation Rate 64H, Sodium Level 142, Potassium Level 3.9 , Chloride Level 109H, Carbon Dioxide Level 24, Anion Gap 9, Blood Urea Nitrogen 23H, Creatinine 0.8, Estimat Glomerular Filtration Rate , Glucose Level 171H, Calcium Level 8.3L, Phosphorus Level 1.9L, Magnesium Level 2.1, Total Bilirubin 0.4, Aspartate Amino Transf (AST/SGOT) 14L, Alanine Aminotransferase (ALT/SGPT) 11L, Alkaline Phosphatase 56, C-Reactive Protein, Quantitative 3.7H, Total Protein 6.6, Albumin 3.0L, Globulin 3.6, Albumin/ Globulin Ratio 0.8L Current Medications Medications (Trade) Dose Ordered Sig/Roro Route PRN Reason Start Time Stop Time Status Last Admin Dose Admin Acetaminophen (Tylenol) 650 mg Q4H PRN ORAL fever 06/08/17 21:45 07/08/17 21:44 Al Hydroxide/Mg Hydroxide (Mylanta II) 30 ml Q6H PRN ORAL dyspepsia 06/08/17 21:45 07/08/17 21:44 Albuterol/ Ipratropium (Albuterol/ Ipratropium) 3 ml Q4HRT HHN 06/11/17 15:00 06/16/17 14:59 06/12/17 20:46 Carbidopa/Levodopa (Sinemet 25/100) 1 ea EVERY 8 HOURS ORAL 06/10/17 14:00 07/09/17 08:59 06/12/17 22:00 Heparin Sodium (Porcine) (Heparin 5000 units/ml) 5,000 units EVERY 12 HOURS SUBQ 06/09/17 09:00 07/09/17 08:59 06/12/17 22:02 Levofloxacin 150 ml @ 100 mls/hr Q24H IVPB 06/10/17 10:30 06/17/17 10:29 06/12/17 11:44 Losartan Potassium (Cozaar) 25 mg DAILY ORAL 06/13/17 09:00 07/13/17 08:59 Methylprednisolone Sodium Succinate (Solu-MEDROL) 60 mg DAILY IV 06/11/17 09:00 07/09/17 11:59 06/12/17 08:38 Nitroglycerin (Ntg) 0.4 mg Q5MIN X 3 DOSES PRN SL Prn Chest Pain 06/08/17 21:45 07/08/17 21:44 Ondansetron HCl (Zofran) 4 mg Q6H PRN IVP Nausea & Vomiting 06/08/17 21:45 07/08/17 21:44 Polyethylene Glycol (Miralax) 17 gm DAILYPRN PRN ORAL Constipation 06/08/17 21:45 07/08/17 21:44 Promethazine HCl/ Codeine (Phenergan with Codeine) 5 ml Q4H PRN ORAL For Cough 06/08/17 21:45 07/08/17 21:44 Temazepam (Restoril) 15 mg HSPRN PRN ORAL Insomnia 06/08/17 21:45 06/15/17 21:44 Vitamin A/Vitamin D (A & D Oint) 1 applic EVERY 12 HOURS TOPIC 06/09/17 09:00 07/09/17 08:59 06/12/17 21:00 KERRI YIN Jun 12, 2017 23:00
[2017-06-13] VITALS: BP 158/92
[2017-06-13] MEDS: Albuterol/Ipratropium 3ml neb HHN SCH ×4 (00:47→11:17)
[2017-06-13 04:00] VITALS: BP 159/90
[2017-06-13 04:40] LABS: BASOPHILS % (AUTO) 0.6 % (0.0-2.0); LYMPHOCYTES % (AUTO) 16.8 % (20.0-45.0); MEAN CORPUSCULAR HEMOGLOBIN 31.6 PG (27.0-31.0); MEAN CORPUSCULAR HGB CONC 33.9 G/DL (32.0-36.0); MEAN CORPUSCULAR VOLUME 93 FL (80-99); MONOCYTES % (AUTO) 6.9 % (1.0-10.0); NEUTROPHILS % (AUTO) 75.8 % (45.0-75.0); PLATELET COUNT 154 K/UL (150-450); RED BLOOD COUNT 4.22 M/UL (4.20-5.40); RED CELL DISTRIBUTION WIDTH 12.1 % (11.6-14.8)
[2017-06-13 05:03] LABS: ANION GAP 9 mmol/L (5-15); CALCIUM 8.3 MG/DL (8.5-10.1); CARBON DIOXIDE 24 MMOL/L (21-32); CHLORIDE 109 MMOL/L (98-107); CREATININE 0.8 MG/DL (0.55-1.30); POTASSIUM 4.2 MMOL/L (3.5-5.1); SODIUM 142 MMOL/L (136-145)
[2017-06-13] MEDS: Sinemet 25/100 tab ORAL SCH ×3 (05:26→21:22)
[2017-06-13 08:00] VITALS: BP 157/96
--- NOTE | 2017-06-13 08:30 | Pulmonology Progress Note ---
Assessment/Plan Assessment/Plan ASSESSMENT Acute respiratory failure Acute purulent bronchitis with bronchospasm aspiration risk CAP Parkinson disease mild mild pulmonary HTN HTN Hx of breast Ca spinal stenosis morbid obesity MIRIAM Left buttock st 2 decub ulcer POA left ischial tuberosity decub ulcer, POA PLAN OF CARE [facility] gentle IVF O2 titrate to keep sat above 92% pulmonary toilet ATC and prn steroids , change to oral in am abx ID follows blood cx initial + GPC, likely contaminant, repeated negative, sputum cx negative LISA no vegetation ECHO with pEF and evidence of mild and mild pulmonary HTN cardio follows start on low dose of ARB as per cardio recommendations ECG with SR with PAC BiPAP at night and prn Venous Duplex BLE negative swallow eval and VSSE with evidence of dysphagia and aspiration risk diet as per ST recommendations with strict aspiration precautions dc IVF when tolerates diet VSS continue Sinemet pain management bowel regimen wound care as per wound nurse recommendations can be transferred out of [facility] if cleared by cardio case discussed and evaluated by supervising physician Subjective Allergies: Coded Allergies: No Known Allergies (Unverified , 01/11/14) Subjective denies chest pain, SOB reported paroxysmal cough episode last night with pain in the chest and in the back currently no signs of respiratory distress on O2 via NC -pulse oximetry stable Objective Last 24 Hour Vital Signs Date Time Temp Pulse Resp B/P (MAP) Pulse Ox O2 Delivery O2 Flow Rate FiO2 06/13/17 08:00 88 06/13/17 08:00 98.5 65 22 157/96 99 Nasal Cannula 4.0 06/13/17 07:12 55 18 100 Nasal Cannula 4.0 36 06/13/17 07:09 Nasal Cannula 4.0 36 06/13/17 07:09 97 Nasal Cannula 4.0 36 06/13/17 07:07 73 18 97 Nasal Cannula 4.0 36 06/13/17 04:00 97.5 65 28 159/90 99 Nasal Cannula 4.0 06/13/17 04:00 70 06/13/17 03:28 Nasal Cannula 4.0 36 06/13/17 03:27 Nasal Cannula 4.0 36 06/13/17 01:03 Nasal Cannula 4.0 36 06/13/17 00:48 79 18 94 Nasal Cannula 4.0 36 06/13/17 00:00 85 06/13/17 00:00 97.9 65 24 158/92 97 Nasal Cannula 4.0 06/12/17 23:48 Nasal Cannula 4.0 36 06/12/17 23:47 Nasal Cannula 4.0 36 06/12/17 21:06 85 20 97 Nasal Cannula 4.0 36 06/12/17 20:52 64 18 96 Nasal Cannula 4.0 36 06/12/17 20:51 Nasal Cannula 4.0 36 06/12/17 20:50 96 Nasal Cannula 4.0 36 06/12/17 20:00 97.6 68 24 156/90 97 Nasal Cannula 4.0 06/12/17 20:00 70 06/12/17 16:00 97.7 68 18 151/85 96 Nasal Cannula 4.0 06/12/17 16:00 71 06/12/17 15:16 84 20 99 Nasal Cannula 4.0 36 06/12/17 15:06 80 18 97 Nasal Cannula 4.0 36 06/12/17 12:00 84 06/12/17 12:00 97.7 75 19 165/95 96 Nasal Cannula 4.0 06/12/17 11:29 90 18 99 Nasal Cannula 4.0 36 06/12/17 11:19 72 20 97 Nasal Cannula 4.0 36 Intake and Output 06/13/17 06/14/17 19:00 07:00 Intake Total 935 ml Balance 935 ml IV Total 935 ml General Appearance: no acute distress, other - awake, alert, responsive female in NAD HEENT: normocephalic, atraumatic, anicteric, other - O2 via NC Respiratory/Chest: no respiratory distress, no accessory muscle use, rhonchi - R side scattered Cardiovascular: normal peripheral pulses, normal rate - SR on tele Abdomen: normal bowel sounds, soft, non tender Extremities: no edema, pedal pulses normal Neurologic/Psychiatric: abnormal gait - with walker , alert, responsive, normal mood/affect Musculoskeletal: atrophy - BLE Microbiology Date/Time Source Procedure Growth Status 06/10/17 14:45 Blood Blood Culture - Preliminary NO GROWTH AFTER 48 HOURS Resulted 06/10/17 14:40 Blood Blood Culture - Preliminary NO GROWTH AFTER 48 HOURS Resulted Laboratory Tests 06/13/17 03:35: White Blood Count 9.0, Red Blood Count 4.22, Hemoglobin 13.4, Hematocrit 39.4, Mean Corpuscular Volume 93, Mean Corpuscular Hemoglobin 31.6H, Mean Corpuscular Hemoglobin Concent 33.9, Red Cell Distribution Width 12.1, Platelet Count 154, Mean Platelet Volume 6.0L, Neutrophils (%) (Auto) 75.8H, Lymphocytes (%) (Auto) 16.8L, Monocytes (%) (Auto) 6.9, Eosinophils (%) (Auto) 0.0, Basophils (%) (Auto ) 0.6, Sodium Level 142, Potassium Level 4.2, Chloride Level 109H, Carbon Dioxide Level 24, Anion Gap 9, Blood Urea Nitrogen 19H, Creatinine 0.8, Estimat Glomerular Filtration Rate , Glucose Level 148H, Calcium Level 8.3L, Pro-B-Type Natriuretic Peptide 1670H Current Medications Medications (Trade) Dose Ordered Sig/Roro Route PRN Reason Start Time Stop Time Status Last Admin Dose Admin Acetaminophen (Tylenol) 650 mg Q4H PRN ORAL fever 06/08/17 21:45 07/08/17 21:44 Al Hydroxide/Mg Hydroxide (Mylanta II) 30 ml Q6H PRN ORAL dyspepsia 06/08/17 21:45 07/08/17 21:44 Albuterol/ Ipratropium (Albuterol/ Ipratropium) 3 ml Q4HRT HHN 06/11/17 15:00 06/16/17 14:59 06/13/17 07:09 Carbidopa/Levodopa (Sinemet 25/100) 1 ea EVERY 8 HOURS ORAL 06/10/17 14:00 07/09/17 08:59 06/13/17 05:26 Heparin Sodium (Porcine) (Heparin 5000 units/ml) 5,000 units EVERY 12 HOURS SUBQ 06/09/17 09:00 07/09/17 08:59 06/12/17 22:02 Levofloxacin 150 ml @ 100 mls/hr Q24H IVPB 06/10/17 10:30 06/17/17 10:29 06/12/17 11:44 Losartan Potassium (Cozaar) 25 mg DAILY ORAL 06/13/17 09:00 07/13/17 08:59 Methylprednisolone Sodium Succinate (Solu-MEDROL) 60 mg DAILY IV 06/11/17 09:00 07/09/17 11:59 06/12/17 08:38 Nitroglycerin (Ntg) 0.4 mg Q5MIN X 3 DOSES PRN SL Prn Chest Pain 06/08/17 21:45 07/08/17 21:44 Ondansetron HCl (Zofran) 4 mg Q6H PRN IVP Nausea & Vomiting 06/08/17 21:45 07/08/17 21:44 Polyethylene Glycol (Miralax) 17 gm DAILYPRN PRN ORAL Constipation 06/08/17 21:45 07/08/17 21:44 Promethazine HCl/ Codeine (Phenergan with Codeine) 5 ml Q4H PRN ORAL For Cough 06/08/17 21:45 07/08/17 21:44 Temazepam (Restoril) 15 mg HSPRN PRN ORAL Insomnia 06/08/17 21:45 06/15/17 21:44 Vitamin A/Vitamin D (A & D Oint) 1 applic EVERY 12 HOURS TOPIC 06/09/17 09:00 07/09/17 08:59 06/12/17 21:00 [facility] OliverEl[facility] Psych[facility] CenterJannet Marrero NP Jun 13, 2017 08:30
--- NOTE | 2017-06-13 08:53 | Infectious Diseases Prog Note ---
Assessment/Plan Assessment/Plan ASSESSMENT: The patient is a 81-year-old female with, Community-acquired pneumonia - SCx NRF - CXR 06/10: The lungs and pleural spaces are clear. CONS bacteremia 1/4, m/l contaminant - repeat BCx NGTD - TTE neg veg Leukocytosis - resolved, afebrile ( on steroids) History of sleep apnea requiring BiPAP. History of breast cancer status post lumpectomy. History of overactive bladder. History of osteoarthritis. Spinal stenosis. Parkinson disease NKDA Full Code PLAN: continue Levaquin d# 4 / 5 ( 06/11 SP vancomycin d# 3 ) ( 06/10 SP cefepime d# 2 ) taper steroids per primary Monitor CBC, temperatures Monitor BMP. Monitor chest x-ray Monitor cultures Subjective Constitutional: Denies: no symptoms, fever, chills, fatigue, anorexia, drenching sweats, other Allergies: Coded Allergies: No Known Allergies (Unverified , 01/11/14) Objective Vital Signs Last 24 Hour Vital Signs Date Time Temp Pulse Resp B/P (MAP) Pulse Ox O2 Delivery O2 Flow Rate FiO2 06/13/17 08:00 88 06/13/17 08:00 98.5 65 22 157/96 99 Nasal Cannula 4.0 06/13/17 07:12 55 18 100 Nasal Cannula 4.0 36 06/13/17 07:09 Nasal Cannula 4.0 36 06/13/17 07:09 97 Nasal Cannula 4.0 36 06/13/17 07:07 73 18 97 Nasal Cannula 4.0 36 06/13/17 04:00 97.5 65 28 159/90 99 Nasal Cannula 4.0 06/13/17 04:00 70 06/13/17 03:28 Nasal Cannula 4.0 36 06/13/17 03:27 Nasal Cannula 4.0 36 06/13/17 01:03 Nasal Cannula 4.0 36 06/13/17 00:48 79 18 94 Nasal Cannula 4.0 36 06/13/17 00:00 85 06/13/17 00:00 97.9 65 24 158/92 97 Nasal Cannula 4.0 06/12/17 23:48 Nasal Cannula 4.0 36 06/12/17 23:47 Nasal Cannula 4.0 36 06/12/17 21:06 85 20 97 Nasal Cannula 4.0 36 06/12/17 20:52 64 18 96 Nasal Cannula 4.0 36 06/12/17 20:51 Nasal Cannula 4.0 36 06/12/17 20:50 96 Nasal Cannula 4.0 36 06/12/17 20:00 97.6 68 24 156/90 97 Nasal Cannula 4.0 06/12/17 20:00 70 06/12/17 16:00 97.7 68 18 151/85 96 Nasal Cannula 4.0 06/12/17 16:00 71 06/12/17 15:16 84 20 99 Nasal Cannula 4.0 36 06/12/17 15:06 80 18 97 Nasal Cannula 4.0 36 06/12/17 12:00 84 06/12/17 12:00 97.7 75 19 165/95 96 Nasal Cannula 4.0 06/12/17 11:29 90 18 99 Nasal Cannula 4.0 36 06/12/17 11:19 72 20 97 Nasal Cannula 4.0 36 Height (Feet): 5 Height (Inches): 0.00 Weight (Pounds): 276 HEENT: anicteric Respiratory/Chest: no respiratory distress Cardiovascular: regularly irregular Abdomen: no organomegaly Microbiology Date/Time Source Procedure Growth Status 06/10/17 14:45 Blood Blood Culture - Preliminary NO GROWTH AFTER 48 HOURS Resulted 06/10/17 14:40 Blood Blood Culture - Preliminary NO GROWTH AFTER 48 HOURS Resulted Laboratory Tests Test 06/13/17 03:35 White Blood Count 9.0 K/UL (4.8-10.8) Red Blood Count 4.22 M/UL (4.20-5.40) Hemoglobin 13.4 G/DL (12.0-16.0) Hematocrit 39.4 % (37.0-47.0) Mean Corpuscular Volume 93 FL (80-99) Mean Corpuscular Hemoglobin 31.6 PG (27.0-31.0) H Mean Corpuscular Hemoglobin Concent 33.9 G/DL (32.0-36.0) Red Cell Distribution Width 12.1 % (11.6-14.8) Platelet Count 154 K/UL (150-450) Mean Platelet Volume 6.0 FL (6.5-10.1) L Neutrophils (%) (Auto) 75.8 % (45.0-75.0) H Lymphocytes (%) (Auto) 16.8 % (20.0-45.0) L Monocytes (%) (Auto) 6.9 % (1.0-10.0) Eosinophils (%) (Auto) 0.0 % (0.0-3.0) Basophils (%) (Auto) 0.6 % (0.0-2.0) Sodium Level 142 MMOL/L (136-145) Potassium Level 4.2 MMOL/L (3.5-5.1) Chloride Level 109 MMOL/L (98-107) H Carbon Dioxide Level 24 MMOL/L (21-32) Anion Gap 9 mmol/L (5-15) Blood Urea Nitrogen 19 mg/dL (7-18) H Creatinine 0.8 MG/DL (0.55-1.30) Estimat Glomerular Filtration Rate mL/min (>60) Glucose Level 148 MG/DL (74-106) H Calcium Level 8.3 MG/DL (8.5-10.1) L Pro-B-Type Natriuretic Peptide 1670 pg/mL (0-125) H Current Medications Medications (Trade) Dose Ordered Sig/Roro Route PRN Reason Start Time Stop Time Status Last Admin Dose Admin Acetaminophen (Tylenol) 650 mg Q4H PRN ORAL fever 06/08/17 21:45 07/08/17 21:44 Al Hydroxide/Mg Hydroxide (Mylanta II) 30 ml Q6H PRN ORAL dyspepsia 06/08/17 21:45 07/08/17 21:44 Albuterol/ Ipratropium (Albuterol/ Ipratropium) 3 ml Q4HRT HHN 06/11/17 15:00 06/16/17 14:59 06/13/17 07:09 Carbidopa/Levodopa (Sinemet 25/100) 1 ea EVERY 8 HOURS ORAL 06/10/17 14:00 07/09/17 08:59 06/13/17 05:26 Heparin Sodium (Porcine) (Heparin 5000 units/ml) 5,000 units EVERY 12 HOURS SUBQ 06/09/17 09:00 07/09/17 08:59 06/12/17 22:02 Levofloxacin 150 ml @ 100 mls/hr Q24H IVPB 06/10/17 10:30 06/17/17 10:29 06/12/17 11:44 Losartan Potassium (Cozaar) 25 mg DAILY ORAL 06/13/17 09:00 07/13/17 08:59 Methylprednisolone Sodium Succinate (Solu-MEDROL) 60 mg DAILY IV 06/11/17 09:00 07/09/17 11:59 06/12/17 08:38 Nitroglycerin (Ntg) 0.4 mg Q5MIN X 3 DOSES PRN SL Prn Chest Pain 06/08/17 21:45 07/08/17 21:44 Ondansetron HCl (Zofran) 4 mg Q6H PRN IVP Nausea & Vomiting 06/08/17 21:45 07/08/17 21:44 Polyethylene Glycol (Miralax) 17 gm DAILYPRN PRN ORAL Constipation 06/08/17 21:45 07/08/17 21:44 Promethazine HCl/ Codeine (Phenergan with Codeine) 5 ml Q4H PRN ORAL For Cough 06/08/17 21:45 07/08/17 21:44 Temazepam (Restoril) 15 mg HSPRN PRN ORAL Insomnia 06/08/17 21:45 06/15/17 21:44 Vitamin A/Vitamin D (A & D Oint) 1 applic EVERY 12 HOURS TOPIC 06/09/17 09:00 07/09/17 08:59 06/12/17 21:00 JEFFRY MCKNIGHT M.D. Jun 13, 2017 08:53
[2017-06-13] MEDS: Heparin 5000 units/ml inj SUBQ SCH ×2 (09:00→20:20)
[2017-06-13] MEDS: Solu-MEDROL 125mg Inj IV SCH (09:21)
[2017-06-13] MEDS: Vitamin A&D Oint 2oz Tube TOPIC SCH ×2 (09:21→20:35)
[2017-06-13] MEDS: Losartan 25mg tab ORAL SCH (09:23)
[2017-06-13] MEDS ORDERED: NS 275ml ONE (10:57)
[2017-06-13] MEDS ORDERED: Tubing IV Secondary IV ONE (10:57)
--- NOTE | 2017-06-13 11:33 | Diagnostic Imaging Report ---
Indication: Tachypnea Technique: One view of the chest Comparison: 06/10/2017 Findings: Left diaphragm is here, likely indicating basilar atelectasis and/or consolidation and pleural fluid the heart is mildly enlarged. Left upper lung, right lung and pleural space are clear. Right paratracheal prominence is again demonstrated, more striking and more well-defined than on the previous exam. Impression: Likely developing left-sided pleural effusion and basilar parenchymal disease Right paratracheal prominence, mass not excludable. Consider CT for better characterization if clinically indicated
[2017-06-13 12:00] VITALS: BP 169/98
[2017-06-13 16:00] VITALS: BP 165/100
--- NOTE | 2017-06-13 18:30 | Cardiology Progress Note ---
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 Subjective the patient is resting in bed family at the bedside she is complaining on being more tired today Objective Last 24 Hour Vital Signs Date Time Temp Pulse Resp B/P (MAP) Pulse Ox O2 Delivery O2 Flow Rate FiO2 06/13/17 16:00 97.8 70 19 165/100 97 Nasal Cannula 4.0 06/13/17 16:00 72 06/13/17 12:00 72 06/13/17 12:00 97.8 83 22 169/98 99 Nasal Cannula 4.0 06/13/17 11:18 67 18 99 Nasal Cannula 4.0 36 06/13/17 11:10 67 18 99 Nasal Cannula 4.0 36 06/13/17 09:23 157/96 06/13/17 08:00 98.5 65 22 157/96 99 Nasal Cannula 4.0 06/13/17 07:12 55 18 100 Nasal Cannula 4.0 36 06/13/17 07:09 Nasal Cannula 4.0 36 06/13/17 07:09 97 Nasal Cannula 4.0 36 06/13/17 07:07 73 18 97 Nasal Cannula 4.0 36 06/13/17 04:00 97.5 65 28 159/90 99 Nasal Cannula 4.0 06/13/17 04:00 70 06/13/17 03:28 Nasal Cannula 4.0 36 06/13/17 03:27 Nasal Cannula 4.0 36 06/13/17 01:03 Nasal Cannula 4.0 36 06/13/17 00:48 79 18 94 Nasal Cannula 4.0 36 06/13/17 00:00 85 06/13/17 00:00 97.9 65 24 158/92 97 Nasal Cannula 4.0 06/12/17 23:48 Nasal Cannula 4.0 36 06/12/17 23:47 Nasal Cannula 4.0 36 06/12/17 21:06 85 20 97 Nasal Cannula 4.0 36 06/12/17 20:52 64 18 96 Nasal Cannula 4.0 36 06/12/17 20:51 Nasal Cannula 4.0 36 06/12/17 20:50 96 Nasal Cannula 4.0 36 06/12/17 20:00 97.6 68 24 156/90 97 Nasal Cannula 4.0 06/12/17 20:00 70 General Appearance: obese EENT: PERRL/EOMI Neck: no JVD Rhythm: NSR Cardiovascular: normal rate Respiratory/Chest: rhonchi - bilaterally Abdomen: soft Extremities: pitting - moderate 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 II-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 grossly normal Intake and Output 06/13/17 06/14/17 19:00 07:00 Intake Total 1085 ml Balance 1085 ml IV Total 1085 ml Laboratory Tests Test 06/13/17 03:35 White Blood Count 9.0 K/UL (4.8-10.8) Red Blood Count 4.22 M/UL (4.20-5.40) Hemoglobin 13.4 G/DL (12.0-16.0) Hematocrit 39.4 % (37.0-47.0) Mean Corpuscular Volume 93 FL (80-99) Mean Corpuscular Hemoglobin 31.6 PG (27.0-31.0) H Mean Corpuscular Hemoglobin Concent 33.9 G/DL (32.0-36.0) Red Cell Distribution Width 12.1 % (11.6-14.8) Platelet Count 154 K/UL (150-450) Mean Platelet Volume 6.0 FL (6.5-10.1) L Neutrophils (%) (Auto) 75.8 % (45.0-75.0) H Lymphocytes (%) (Auto) 16.8 % (20.0-45.0) L Monocytes (%) (Auto) 6.9 % (1.0-10.0) Eosinophils (%) (Auto) 0.0 % (0.0-3.0) Basophils (%) (Auto) 0.6 % (0.0-2.0) Sodium Level 142 MMOL/L (136-145) Potassium Level 4.2 MMOL/L (3.5-5.1) Chloride Level 109 MMOL/L (98-107) H Carbon Dioxide Level 24 MMOL/L (21-32) Anion Gap 9 mmol/L (5-15) Blood Urea Nitrogen 19 mg/dL (7-18) H Creatinine 0.8 MG/DL (0.55-1.30) Estimat Glomerular Filtration Rate mL/min (>60) Glucose Level 148 MG/DL (74-106) H Calcium Level 8.3 MG/DL (8.5-10.1) L Pro-B-Type Natriuretic Peptide 1670 pg/mL (0-125) H DEZ HURTADO Jun 13, 2017 18:30
[2017-06-13 20:00] VITALS: BP 152/84
[2017-06-13] MEDS: Albuterol/Ipratropium 3ml neb INH SCH (20:11)
[2017-06-14] VITALS: BP 167/95
[2017-06-14 04:31] LABS: BASOPHILS % (AUTO) 0.8 % (0.0-2.0); EOSINOPHILS % (AUTO) 0.2 % (0.0-3.0); MEAN CORPUSCULAR HGB CONC 33.6 G/DL (32.0-36.0); MEAN CORPUSCULAR VOLUME 92 FL (80-99); MEAN PLATELET VOLUME 5.8 FL (6.5-10.1); MONOCYTES % (AUTO) 6.5 % (1.0-10.0); NEUTROPHILS % (AUTO) 73.6 % (45.0-75.0); PLATELET COUNT 171 K/UL (150-450); RED BLOOD COUNT 4.52 M/UL (4.20-5.40); RED CELL DISTRIBUTION WIDTH 11.9 % (11.6-14.8); WHITE BLOOD COUNT 10.3 K/UL (4.8-10.8)
[2017-06-14] MEDS: Sinemet 25/100 tab ORAL SCH ×3 (05:06→21:00)
[2017-06-14 05:34] LABS: ANION GAP 9 mmol/L (5-15); CALCIUM 8.8 MG/DL (8.5-10.1); CARBON DIOXIDE 23 MMOL/L (21-32); CHLORIDE 107 MMOL/L (98-107); CREATININE 0.9 MG/DL (0.55-1.30); POTASSIUM 4.5 MMOL/L (3.5-5.1); SODIUM 139 MMOL/L (136-145)
[2017-06-14] MEDS: Albuterol/Ipratropium 3ml neb INH SCH ×3 (06:38→19:50)
[2017-06-14 08:00] VITALS: BP 158/73
--- NOTE | 2017-06-14 10:52 | Pulmonology Progress Note ---
Assessment/Plan Assessment/Plan ASSESSMENT Acute respiratory failure Acute purulent bronchitis with bronchospasm aspiration risk CAP Parkinson disease mild mild pulmonary HTN HTN Hx of breast Ca spinal stenosis morbid obesity MIRIAM Left buttock st 2 decub ulcer POA left ischial tuberosity decub ulcer, POA PLAN OF CARE [facility] gentle IVF O2 titrate to keep sat above 92% pulmonary toilet ATC and prn steroids , now oral with tapering daily fup CXR with ikely developing left-sided pleural effusion and basilar parenchymal disease. Right paratracheal prominence, mass not excludable. will get CT chest in am abx ID follows blood cx initial + GPC, likely contaminant, repeated negative, sputum cx negative LISA no vegetation ECHO with pEF and evidence of mild and mild pulmonary HTN cardio follows BP management, elevated , likely due to steroids, CCB added by cardio continue ARB, further optimization as needed low dose of ARB as per cardio recommendations ECG with SR with PAC BiPAP at night and prn Venous Duplex BLE negative swallow eval and VSSE with evidence of dysphagia and aspiration risk diet as per ST recommendations with strict aspiration precautions dc IVF when tolerates diet VSS continue Sinemet pain management bowel regimen wound care as per wound nurse recommendations can be transferred out of [facility] if cleared by cardio case discussed and evaluated by supervising physician Subjective Allergies: Coded Allergies: No Known Allergies (Unverified , 01/11/14) Subjective denies chest pain, SOB reported paroxysmal cough episode last night with pain in the chest and in the back currently no signs of respiratory distress on O2 via NC -pulse oximetry stable Objective Last 24 Hour Vital Signs Date Time Temp Pulse Resp B/P (MAP) Pulse Ox O2 Delivery O2 Flow Rate FiO2 06/14/17 08:00 92 06/14/17 08:00 97.7 92 18 158/73 95 Nasal Cannula 3.0 06/14/17 06:40 Nasal Cannula 4.0 36 06/14/17 06:40 99 Nasal Cannula 4.0 36 06/14/17 06:30 90 18 99 Nasal Cannula 4.0 36 06/14/17 06:25 87 18 97 Nasal Cannula 4.0 36 06/14/17 04:00 58 06/14/17 00:00 98.3 82 15 167/95 100 Nasal Cannula 3.0 06/14/17 00:00 74 06/13/17 20:32 99 18 99 Nasal Cannula 4.0 36 06/13/17 20:19 Nasal Cannula 4.0 36 06/13/17 20:19 98 Nasal Cannula 4.0 36 06/13/17 20:11 74 18 99 Nasal Cannula 4.0 36 06/13/17 20:00 70 06/13/17 20:00 97.9 105 16 152/84 100 Nasal Cannula 3.0 06/13/17 19:33 83 169/98 06/13/17 16:00 97.8 70 19 165/100 97 Nasal Cannula 4.0 06/13/17 16:00 72 06/13/17 12:00 72 06/13/17 12:00 97.8 83 22 169/98 99 Nasal Cannula 4.0 06/13/17 11:18 67 18 99 Nasal Cannula 4.0 36 06/13/17 11:10 67 18 99 Nasal Cannula 4.0 36 Objective General Appearance: no acute distress, other - awake, alert, responsive female in NAD HEENT: normocephalic, atraumatic, anicteric, other - O2 via NC Respiratory/Chest: R side scattered rhonchi , no respiratory distress, no accessory muscle use Cardiovascular: normal peripheral pulses, SR on tele Abdomen: normal bowel sounds, soft, non tender Extremities: no edema, pedal pulses normal Neurologic/Psychiatric: abnormal gait - with walker , alert, responsive, normal mood/affect Musculoskeletal: atrophy - BLE Laboratory Tests 06/14/17 03:20: White Blood Count 10.3, Red Blood Count 4.52, Hemoglobin 14.0, Hematocrit 41.8, Mean Corpuscular Volume 92, Mean Corpuscular Hemoglobin 31.0, Mean Corpuscular Hemoglobin Concent 33.6, Red Cell Distribution Width 11.9, Platelet Count 171, Mean Platelet Volume 5.8L, Neutrophils (%) (Auto) 73.6, Lymphocytes (%) (Auto) 19.0L, Monocytes (%) (Auto) 6.5, Eosinophils (%) (Auto) 0.2, Basophils (%) (Auto ) 0.8, Sodium Level 139, Potassium Level 4.5, Chloride Level 107, Carbon Dioxide Level 23, Anion Gap 9, Blood Urea Nitrogen 21H, Creatinine 0.9, Estimat Glomerular Filtration Rate , Glucose Level 121H, Calcium Level 8.8 Current Medications Medications (Trade) Dose Ordered Sig/Roro Route PRN Reason Start Time Stop Time Status Last Admin Dose Admin Acetaminophen (Tylenol) 650 mg Q4H PRN ORAL fever 06/08/17 21:45 07/08/17 21:44 Al Hydroxide/Mg Hydroxide (Mylanta II) 30 ml Q6H PRN ORAL dyspepsia 06/08/17 21:45 07/08/17 21:44 Albuterol/ Ipratropium (Albuterol/ Ipratropium) 3 ml TIDRT INH 06/13/17 13:00 06/14/17 23:59 06/14/17 06:38 Amlodipine Besylate (Norvasc) 5 mg DAILY ORAL 06/13/17 19:00 07/13/17 18:59 06/13/17 19:33 Carbidopa/Levodopa (Sinemet 25/100) 1 ea EVERY 8 HOURS ORAL 06/10/17 14:00 07/09/17 08:59 06/14/17 05:06 Heparin Sodium (Porcine) (Heparin 5000 units/ml) 5,000 units EVERY 12 HOURS SUBQ 06/09/17 09:00 07/09/17 08:59 06/13/17 20:20 Levofloxacin 150 ml @ 100 mls/hr Q24H IVPB 06/10/17 10:30 06/17/17 10:29 06/13/17 10:44 Losartan Potassium (Cozaar) 25 mg DAILY ORAL 06/13/17 09:00 07/13/17 08:59 06/13/17 09:23 Nitroglycerin (Ntg) 0.4 mg Q5MIN X 3 DOSES PRN SL Prn Chest Pain 06/08/17 21:45 07/08/17 21:44 Ondansetron HCl (Zofran) 4 mg Q6H PRN IVP Nausea & Vomiting 06/08/17 21:45 07/08/17 21:44 Polyethylene Glycol (Miralax) 17 gm DAILYPRN PRN ORAL Constipation 06/08/17 21:45 07/08/17 21:44 Prednisone (predniSONE) 60 mg Taper DAILY ORAL 06/14/17 09:00 06/20/17 08:59 Promethazine HCl/ Codeine (Phenergan with Codeine) 5 ml Q4H PRN ORAL For Cough 06/08/17 21:45 07/08/17 21:44 Temazepam (Restoril) 15 mg HSPRN PRN ORAL Insomnia 06/08/17 21:45 06/15/17 21:44 Vitamin A/Vitamin D (A & D Oint) 1 applic EVERY 12 HOURS TOPIC 06/09/17 09:00 07/09/17 08:59 06/13/17 20:35 Charles ([facility])Jannet NP Jun 14, 2017 10:52
[2017-06-14] MEDS: Vitamin A&D Oint 2oz Tube TOPIC SCH ×2 (11:02→21:01)
[2017-06-14] MEDS: Losartan 25mg tab ORAL SCH (11:05)
[2017-06-14] MEDS: Heparin 5000 units/ml inj SUBQ SCH ×2 (11:07→21:00)
[2017-06-14 12:00] VITALS: BP 141/94
[2017-06-14 16:00] VITALS: BP 150/89
[2017-06-14] MEDS ORDERED: NS 500ML ONE (18:55)
--- NOTE | 2017-06-14 19:01 | Cardiology Progress Note ---
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 Subjective Subjective the patient is resting in bed she is very fatigued but dyspnea is better denies headache or chest pain Objective Last 24 Hour Vital Signs Date Time Temp Pulse Resp B/P (MAP) Pulse Ox O2 Delivery O2 Flow Rate FiO2 06/14/17 16:00 91 06/14/17 16:00 97.5 98 19 150/89 91 Nasal Cannula 3.0 06/14/17 14:35 80 18 99 Nasal Cannula 4.0 36 06/14/17 14:30 78 18 97 Nasal Cannula 4.0 36 06/14/17 12:00 98.6 98 19 141/94 98 Nasal Cannula 3.0 06/14/17 12:00 98 06/14/17 11:05 158/73 06/14/17 11:04 92 158/73 06/14/17 08:00 92 06/14/17 08:00 97.7 92 18 158/73 95 Nasal Cannula 3.0 06/14/17 06:40 Nasal Cannula 4.0 36 06/14/17 06:40 99 Nasal Cannula 4.0 36 06/14/17 06:30 90 18 99 Nasal Cannula 4.0 36 06/14/17 06:25 87 18 97 Nasal Cannula 4.0 36 06/14/17 04:00 58 06/14/17 00:00 98.3 82 15 167/95 100 Nasal Cannula 3.0 06/14/17 00:00 74 06/13/17 20:32 99 18 99 Nasal Cannula 4.0 36 06/13/17 20:19 Nasal Cannula 4.0 36 06/13/17 20:19 98 Nasal Cannula 4.0 36 06/13/17 20:11 74 18 99 Nasal Cannula 4.0 36 06/13/17 20:00 70 06/13/17 20:00 97.9 105 16 152/84 100 Nasal Cannula 3.0 06/13/17 19:33 83 169/98 General Appearance: obese EENT: PERRL/EOMI Neck: supple Rhythm: NSR Cardiovascular: normal rate Respiratory/Chest: rhonchi - bilaterally Abdomen: distended Intake and Output 06/14/17 06/15/17 19:00 07:00 Intake Total 150 ml Output Total 600 ml Balance -450 ml IV Total 150 ml Output Urine Total 600 ml # Voids 3 Laboratory Tests Test 06/14/17 03:20 White Blood Count 10.3 K/UL (4.8-10.8) Red Blood Count 4.52 M/UL (4.20-5.40) Hemoglobin 14.0 G/DL (12.0-16.0) Hematocrit 41.8 % (37.0-47.0) Mean Corpuscular Volume 92 FL (80-99) Mean Corpuscular Hemoglobin 31.0 PG (27.0-31.0) Mean Corpuscular Hemoglobin Concent 33.6 G/DL (32.0-36.0) Red Cell Distribution Width 11.9 % (11.6-14.8) Platelet Count 171 K/UL (150-450) Mean Platelet Volume 5.8 FL (6.5-10.1) L Neutrophils (%) (Auto) 73.6 % (45.0-75.0) Lymphocytes (%) (Auto) 19.0 % (20.0-45.0) L Monocytes (%) (Auto) 6.5 % (1.0-10.0) Eosinophils (%) (Auto) 0.2 % (0.0-3.0) Basophils (%) (Auto) 0.8 % (0.0-2.0) Sodium Level 139 MMOL/L (136-145) Potassium Level 4.5 MMOL/L (3.5-5.1) Chloride Level 107 MMOL/L (98-107) Carbon Dioxide Level 23 MMOL/L (21-32) Anion Gap 9 mmol/L (5-15) Blood Urea Nitrogen 21 mg/dL (7-18) H Creatinine 0.9 MG/DL (0.55-1.30) Estimat Glomerular Filtration Rate mL/min (>60) Glucose Level 121 MG/DL (74-106) H Calcium Level 8.8 MG/DL (8.5-10.1) DEZ HURTADO Jun 14, 2017 19:01
[2017-06-14 20:00] VITALS: BP 119/3
[2017-06-14 20:58] VITALS: BP 119/73
[2017-06-15] VITALS: BP 140/90
[2017-06-15 05:06] LABS: BASOPHILS % (AUTO) 0.6 % (0.0-2.0); EOSINOPHILS % (AUTO) 0.1 % (0.0-3.0); LYMPHOCYTES % (AUTO) 14.1 % (20.0-45.0); MEAN CORPUSCULAR HEMOGLOBIN 30.5 PG (27.0-31.0); MEAN CORPUSCULAR VOLUME 92 FL (80-99); MEAN PLATELET VOLUME 5.9 FL (6.5-10.1); MONOCYTES % (AUTO) 5.7 % (1.0-10.0); NEUTROPHILS % (AUTO) 79.6 % (45.0-75.0); PLATELET COUNT 197 K/UL (150-450); RED BLOOD COUNT 4.77 M/UL (4.20-5.40); WHITE BLOOD COUNT 10.4 K/UL (4.8-10.8)
[2017-06-15] MEDS: Sinemet 25/100 tab ORAL SCH ×3 (05:59→21:41)
[2017-06-15] MEDS: Albuterol/Ipratropium 3ml neb INH SCH ×3 (07:18→19:31)
[2017-06-15 07:21] LABS: ANION GAP 14 mmol/L (5-15); CALCIUM 9.4 MG/DL (8.5-10.1); CARBON DIOXIDE 20 MMOL/L (21-32); CHLORIDE 105 MMOL/L (98-107); POTASSIUM 5.1 MMOL/L (3.5-5.1); SODIUM 139 MMOL/L (136-145)
[2017-06-15 08:00] VITALS: BP 156/97
[2017-06-15] MEDS: Heparin 5000 units/ml inj SUBQ SCH ×2 (09:00→20:03)
--- NOTE | 2017-06-15 10:06 | Infectious Diseases Prog Note ---
Assessment/Plan Assessment/Plan ASSESSMENT: The patient is a 81-year-old female with, Community-acquired pneumonia - SCx NRF -CXR 06/13: Likely developing left-sided pleural effusion and basilar parenchymal disease. Right paratracheal prominence, mass not excludable. Consider CT for better characterization if clinically indicated - CXR 06/10: The lungs and pleural spaces are clear. CONS bacteremia 1/4, m/l contaminant - repeat BCx NGTD - TTE neg veg Leukocytosis - resolved, afebrile ( on steroids) History of sleep apnea requiring BiPAP. History of breast cancer status post lumpectomy. History of overactive bladder. History of osteoarthritis. Spinal stenosis. Parkinson disease NKDA Full Code PLAN: - Continue to monitor off abx ( 06/14 SP Levaquin #5) ( 06/11 SP vancomycin d# 3 ) ( 06/10 SP cefepime d# 2 ) taper steroids per primary Monitor CBC, temperatures Monitor BMP. Monitor chest x-ray Monitor cultures Subjective Allergies: Coded Allergies: No Known Allergies (Unverified , 01/11/14) Subjective afebrile no leukocytosis Bcx NTD Objective Vital Signs Last 24 Hour Vital Signs Date Time Temp Pulse Resp B/P (MAP) Pulse Ox O2 Delivery O2 Flow Rate FiO2 06/15/17 08:00 92 06/15/17 08:00 98.1 92 22 156/97 96 Nasal Cannula 3.0 06/15/17 07:28 90 18 96 Nasal Cannula 3.0 32 06/15/17 07:18 96 Nasal Cannula 3.0 32 06/15/17 07:18 Nasal Cannula 3.0 32 06/15/17 07:18 90 18 96 Nasal Cannula 3.0 32 06/15/17 04:00 91 06/15/17 00:00 92 06/15/17 00:00 97.4 108 20 140/90 99 Nasal Cannula 3.0 06/14/17 20:00 87 06/14/17 20:00 86 18 99 Nasal Cannula 4.0 36 06/14/17 20:00 98.4 88 20 119/3 96 Nasal Cannula 3.0 06/14/17 19:51 Nasal Cannula 3.0 32 06/14/17 19:51 95 Nasal Cannula 3.0 06/14/17 19:51 92 18 95 Nasal Cannula 3.0 32 06/14/17 16:00 91 06/14/17 16:00 97.5 98 19 150/89 91 Nasal Cannula 3.0 06/14/17 14:35 80 18 99 Nasal Cannula 4.0 36 06/14/17 14:30 78 18 97 Nasal Cannula 4.0 36 06/14/17 12:00 98.6 98 19 141/94 98 Nasal Cannula 3.0 06/14/17 12:00 98 06/14/17 11:05 158/73 06/14/17 11:04 92 [id number] Height (Feet): 5 Height (Inches): 0.00 Weight (Pounds): 276 Objective General Appearance: no acute distress, other - awake, alert, responsive female in NAD HEENT: normocephalic, atraumatic, anicteric Respiratory/Chest: R side scattered rhonchi , no respiratory distress, no accessory muscle use Cardiovascular: normal peripheral pulses, SR on tele Abdomen: normal bowel sounds, soft, non tender Extremities: no edema, pedal pulses normal Neurologic/Psychiatric: abnormal gait - with walker , alert, responsive, normal mood/affect Musculoskeletal: atrophy - BLE Laboratory Tests Test 06/15/17 02:55 White Blood Count 10.4 K/UL (4.8-10.8) Red Blood Count 4.77 M/UL (4.20-5.40) Hemoglobin 14.5 G/DL (12.0-16.0) Hematocrit 44.0 % (37.0-47.0) Mean Corpuscular Volume 92 FL (80-99) Mean Corpuscular Hemoglobin 30.5 PG (27.0-31.0) Mean Corpuscular Hemoglobin Concent 33.0 G/DL (32.0-36.0) Red Cell Distribution Width 12.0 % (11.6-14.8) Platelet Count 197 K/UL (150-450) Mean Platelet Volume 5.9 FL (6.5-10.1) L Neutrophils (%) (Auto) 79.6 % (45.0-75.0) H Lymphocytes (%) (Auto) 14.1 % (20.0-45.0) L Monocytes (%) (Auto) 5.7 % (1.0-10.0) Eosinophils (%) (Auto) 0.1 % (0.0-3.0) Basophils (%) (Auto) 0.6 % (0.0-2.0) Sodium Level 139 MMOL/L (136-145) Potassium Level 5.1 MMOL/L (3.5-5.1) Chloride Level 105 MMOL/L (98-107) Carbon Dioxide Level 20 MMOL/L (21-32) L Anion Gap 14 mmol/L (5-15) Blood Urea Nitrogen 23 mg/dL (7-18) H Creatinine 1.0 MG/DL (0.55-1.30) Estimat Glomerular Filtration Rate mL/min (>60) Glucose Level 135 MG/DL (74-106) H Calcium Level 9.4 MG/DL (8.5-10.1) Current Medications Medications (Trade) Dose Ordered Sig/Roro Route PRN Reason Start Time Stop Time Status Last Admin Dose Admin Acetaminophen (Tylenol) 650 mg Q4H PRN ORAL fever 06/08/17 21:45 07/08/17 21:44 Al Hydroxide/Mg Hydroxide (Mylanta II) 30 ml Q6H PRN ORAL dyspepsia 06/08/17 21:45 07/08/17 21:44 Albuterol/ Ipratropium (Albuterol/ Ipratropium) 3 ml TIDRT INH 06/14/17 13:00 06/16/17 07:01 06/15/17 07:18 Amlodipine Besylate (Norvasc) 5 mg DAILY ORAL 06/13/17 19:00 07/13/17 18:59 06/14/17 11:04 Carbidopa/Levodopa (Sinemet 25/100) 1 ea EVERY 8 HOURS ORAL 06/10/17 14:00 07/09/17 08:59 06/15/17 05:59 Heparin Sodium (Porcine) (Heparin 5000 units/ml) 5,000 units EVERY 12 HOURS SUBQ 06/09/17 09:00 07/09/17 08:59 06/14/17 11:07 Losartan Potassium (Cozaar) 25 mg DAILY ORAL 06/13/17 09:00 07/13/17 08:59 06/14/17 11:05 Nitroglycerin (Ntg) 0.4 mg Q5MIN X 3 DOSES PRN SL Prn Chest Pain 06/08/17 21:45 07/08/17 21:44 Ondansetron HCl (Zofran) 4 mg Q6H PRN IVP Nausea & Vomiting 06/08/17 21:45 07/08/17 21:44 Polyethylene Glycol (Miralax) 17 gm DAILYPRN PRN ORAL Constipation 06/08/17 21:45 07/08/17 21:44 Prednisone (predniSONE) 50 mg Taper DAILY ORAL 06/14/17 09:00 06/20/17 08:59 06/14/17 11:05 Promethazine HCl/ Codeine (Phenergan with Codeine) 5 ml Q4H PRN ORAL For Cough 06/08/17 21:45 07/08/17 21:44 Temazepam (Restoril) 15 mg HSPRN PRN ORAL Insomnia 06/08/17 21:45 06/15/17 21:44 Vitamin A/Vitamin D (A & D Oint) 1 applic EVERY 12 HOURS TOPIC 06/09/17 09:00 07/09/17 08:59 06/14/17 21:01 Carol Ann Ellis M.D. Jun 15, 2017 10:06
[2017-06-15] MEDS: Vitamin A&D Oint 2oz Tube TOPIC SCH ×2 (10:44→20:02)
[2017-06-15] MEDS: Losartan 25mg tab ORAL SCH (10:48)
[2017-06-15] MEDS ORDERED: LOSARTAN POTASS25 MG ORAL (11:28)
[2017-06-15] MEDS ORDERED: NORVASC5 MG ORAL (11:28)
--- NOTE | 2017-06-15 11:33 | Pulmonology Progress Note ---
Assessment/Plan Problems: (1) Acute respiratory failure (2) Purulent bronchitis (3) At high risk for aspiration (4) Pneumonia (5) Peripheral edema (6) Parkinson disease Assessment/Plan continues to improve on nasal cannula now feeling uch better off abx BP better controlled. Subjective ROS Limited/Unobtainable: No Constitutional: Reports: no symptoms HEENT: Repors: no symptoms Respiratory: Reports: no symptoms Allergies: Coded Allergies: No Known Allergies (Unverified , 01/11/14) Objective Last 24 Hour Vital Signs Date Time Temp Pulse Resp B/P (MAP) Pulse Ox O2 Delivery O2 Flow Rate FiO2 06/15/17 10:48 92 156/97 06/15/17 10:48 156/97 06/15/17 08:00 92 06/15/17 08:00 98.1 92 22 156/97 96 Nasal Cannula 3.0 06/15/17 07:28 90 18 96 Nasal Cannula 3.0 32 06/15/17 07:18 96 Nasal Cannula 3.0 32 06/15/17 07:18 Nasal Cannula 3.0 32 06/15/17 07:18 90 18 96 Nasal Cannula 3.0 32 06/15/17 04:00 91 06/15/17 00:00 92 06/15/17 00:00 97.4 108 20 140/90 99 Nasal Cannula 3.0 06/14/17 20:00 87 06/14/17 20:00 86 18 99 Nasal Cannula 4.0 36 06/14/17 20:00 98.4 88 20 119/3 96 Nasal Cannula 3.0 06/14/17 19:51 Nasal Cannula 3.0 32 06/14/17 19:51 95 Nasal Cannula 3.0 06/14/17 19:51 92 18 95 Nasal Cannula 3.0 32 06/14/17 16:00 91 06/14/17 16:00 97.5 98 19 150/89 91 Nasal Cannula 3.0 06/14/17 14:35 80 18 99 Nasal Cannula 4.0 36 06/14/17 14:30 78 18 97 Nasal Cannula 4.0 36 06/14/17 12:00 98.6 98 19 141/94 98 Nasal Cannula 3.0 06/14/17 12:00 98 General Appearance: WD/WN HEENT: normocephalic, atraumatic Respiratory/Chest: chest wall non-tender, lungs clear Breasts: no masses Cardiovascular: normal peripheral pulses Abdomen: normal bowel sounds, soft, non tender Genitourinary: normal external genitalia Extremities: no cyanosis, no clubbing Neurologic/Psychiatric: marble rubber II-XII grossly normal Lymphatic: no neck adenopathy Musculoskeletal: normal muscle bulk Laboratory Tests 06/15/17 02:55: White Blood Count 10.4, Red Blood Count 4.77, Hemoglobin 14.5, Hematocrit 44.0, Mean Corpuscular Volume 92, Mean Corpuscular Hemoglobin 30.5, Mean Corpuscular Hemoglobin Concent 33.0, Red Cell Distribution Width 12.0, Platelet Count 197, Mean Platelet Volume 5.9L, Neutrophils (%) (Auto) 79.6H, Lymphocytes (%) (Auto) 14.1L, Monocytes (%) (Auto) 5.7, Eosinophils (%) (Auto) 0.1, Basophils (%) (Auto ) 0.6, Sodium Level 139, Potassium Level 5.1, Chloride Level 105, Carbon Dioxide Level 20L, Anion Gap 14, Blood Urea Nitrogen 23H, Creatinine 1.0, Estimat Glomerular Filtration Rate , Glucose Level 135H, Calcium Level 9.4 Current Medications Medications (Trade) Dose Ordered Sig/Roro Route PRN Reason Start Time Stop Time Status Last Admin Dose Admin Acetaminophen (Tylenol) 650 mg Q4H PRN ORAL fever 06/08/17 21:45 07/08/17 21:44 Al Hydroxide/Mg Hydroxide (Mylanta II) 30 ml Q6H PRN ORAL dyspepsia 06/08/17 21:45 07/08/17 21:44 Albuterol/ Ipratropium (Albuterol/ Ipratropium) 3 ml TIDRT INH 06/14/17 13:00 06/16/17 07:01 06/15/17 07:18 Amlodipine Besylate (Norvasc) 5 mg DAILY ORAL 06/13/17 19:00 07/13/17 18:59 06/15/17 10:48 Carbidopa/Levodopa (Sinemet 25/100) 1 ea EVERY 8 HOURS ORAL 06/10/17 14:00 07/09/17 08:59 06/15/17 05:59 Heparin Sodium (Porcine) (Heparin 5000 units/ml) 5,000 units EVERY 12 HOURS SUBQ 06/09/17 09:00 07/09/17 08:59 06/14/17 11:07 Losartan Potassium (Cozaar) 25 mg DAILY ORAL 06/13/17 09:00 07/13/17 08:59 06/15/17 10:48 Nitroglycerin (Ntg) 0.4 mg Q5MIN X 3 DOSES PRN SL Prn Chest Pain 06/08/17 21:45 07/08/17 21:44 Ondansetron HCl (Zofran) 4 mg Q6H PRN IVP Nausea & Vomiting 06/08/17 21:45 07/08/17 21:44 Polyethylene Glycol (Miralax) 17 gm DAILYPRN PRN ORAL Constipation 06/08/17 21:45 07/08/17 21:44 Prednisone (predniSONE) 50 mg Taper DAILY ORAL 06/14/17 09:00 06/20/17 08:59 06/15/17 10:49 Promethazine HCl/ Codeine (Phenergan with Codeine) 5 ml Q4H PRN ORAL For Cough 06/08/17 21:45 07/08/17 21:44 Temazepam (Restoril) 15 mg HSPRN PRN ORAL Insomnia 06/08/17 21:45 06/15/17 21:44 Vitamin A/Vitamin D (A & D Oint) 1 applic EVERY 12 HOURS TOPIC 06/09/17 09:00 07/09/17 08:59 06/15/17 10:44 KERRI YIN Jun 15, 2017 11:33
[2017-06-15 12:00] VITALS: BP 140/86
[2017-06-15 16:00] VITALS: BP 128/78
--- NOTE | 2017-06-15 18:49 | Cardiology Progress Note ---
Assessment/Plan Assessment/Plan 1. Shortness of breath and coughing. 2. Obesity. 3. History of breast cancer. 4. Parkinsonism. 5. History of meningioma. 6. History of hypercalcemia. 7. pneumonia 8. Midl 9. Mild pulm htn wbc better tele sinus , echo normal wall motion mild pasp 43 duplex neg elevated bp heplock ivf agree with diuretic home per dr guevara Subjective Cardiovascular: Reports: palpitations, Denies: chest pain Respiratory: Reports: cough, shortness of breath - specilly if lying falt Gastrointestinal/Abdominal: Denies: abdominal pain Genitourinary: Denies: burning Objective Last 24 Hour Vital Signs Date Time Temp Pulse Resp B/P (MAP) Pulse Ox O2 Delivery O2 Flow Rate FiO2 06/15/17 16:00 112 06/15/17 16:00 98.6 107 24 128/78 92 Room Air 06/15/17 13:04 82 18 99 Nasal Cannula 3.0 32 06/15/17 12:54 79 20 96 Nasal Cannula 3.0 32 06/15/17 12:00 102 06/15/17 12:00 98.1 103 21 140/86 93 Room Air 06/15/17 10:48 92 156/97 06/15/17 10:48 156/97 06/15/17 08:00 92 06/15/17 08:00 98.1 92 22 156/97 96 Nasal Cannula 3.0 06/15/17 07:28 90 18 96 Nasal Cannula 3.0 32 06/15/17 07:18 96 Nasal Cannula 3.0 32 06/15/17 07:18 Nasal Cannula 3.0 32 06/15/17 07:18 90 18 96 Nasal Cannula 3.0 32 06/15/17 04:00 91 06/15/17 00:00 92 06/15/17 00:00 97.4 108 20 140/90 99 Nasal Cannula 3.0 06/14/17 20:00 87 06/14/17 20:00 86 18 99 Nasal Cannula 4.0 36 06/14/17 20:00 98.4 88 20 119/3 96 Nasal Cannula 3.0 06/14/17 19:51 Nasal Cannula 3.0 32 06/14/17 19:51 95 Nasal Cannula 3.0 06/14/17 19:51 92 18 95 Nasal Cannula 3.0 32 General Appearance: alert Cardiovascular: normal rate, regular rhythm Respiratory/Chest: crackles/rales - right base Abdomen: normal bowel sounds, non tender, soft Extremities: no swelling Intake and Output 06/15/17 06/16/17 19:00 07:00 Intake Total 250 ml Balance 250 ml Intake Oral 250 ml # Voids 1 Laboratory Tests Test 06/15/17 02:55 White Blood Count 10.4 K/UL (4.8-10.8) Red Blood Count 4.77 M/UL (4.20-5.40) Hemoglobin 14.5 G/DL (12.0-16.0) Hematocrit 44.0 % (37.0-47.0) Mean Corpuscular Volume 92 FL (80-99) Mean Corpuscular Hemoglobin 30.5 PG (27.0-31.0) Mean Corpuscular Hemoglobin Concent 33.0 G/DL (32.0-36.0) Red Cell Distribution Width 12.0 % (11.6-14.8) Platelet Count 197 K/UL (150-450) Mean Platelet Volume 5.9 FL (6.5-10.1) L Neutrophils (%) (Auto) 79.6 % (45.0-75.0) H Lymphocytes (%) (Auto) 14.1 % (20.0-45.0) L Monocytes (%) (Auto) 5.7 % (1.0-10.0) Eosinophils (%) (Auto) 0.1 % (0.0-3.0) Basophils (%) (Auto) 0.6 % (0.0-2.0) Sodium Level 139 MMOL/L (136-145) Potassium Level 5.1 MMOL/L (3.5-5.1) Chloride Level 105 MMOL/L (98-107) Carbon Dioxide Level 20 MMOL/L (21-32) L Anion Gap 14 mmol/L (5-15) Blood Urea Nitrogen 23 mg/dL (7-18) H Creatinine 1.0 MG/DL (0.55-1.30) Estimat Glomerular Filtration Rate mL/min (>60) Glucose Level 135 MG/DL (74-106) H Calcium Level 9.4 MG/DL (8.5-10.1) FRANDY RAUSCH Jun 15, 2017 18:49
[2017-06-15 20:00] VITALS: BP 139/87
[2017-06-16] MEDS: Sinemet 25/100 tab ORAL SCH ×4 (05:23→21:25)
[2017-06-16 08:00] VITALS: BP 125/78
[2017-06-16] MEDS: Albuterol/Ipratropium 3ml neb INH SCH (08:02)
[2017-06-16] MEDS: Heparin 5000 units/ml inj SUBQ SCH ×2 (09:00→21:27)
[2017-06-16] MEDS: Losartan 25mg tab ORAL SCH (09:40)
[2017-06-16] MEDS: Vitamin A&D Oint 2oz Tube TOPIC SCH ×2 (09:42→21:25)
--- NOTE | 2017-06-16 10:03 | Pulmonology Progress Note ---
Assessment/Plan Problems: (1) Acute respiratory failure (2) Purulent bronchitis (3) At high risk for aspiration (4) Pneumonia (5) Peripheral edema (6) Parkinson disease Assessment/Plan diuresed well yesterday repeat cxr today taper steroids continues to improve on nasal cannula now feeling uch better off abx BP better controlled. d/w pt's son, he is in agreement about short term rehab placement Subjective ROS Limited/Unobtainable: No Constitutional: Reports: no symptoms HEENT: Repors: no symptoms Respiratory: Reports: no symptoms Allergies: Coded Allergies: No Known Allergies (Unverified , 01/11/14) Objective Last 24 Hour Vital Signs Date Time Temp Pulse Resp B/P (MAP) Pulse Ox O2 Delivery O2 Flow Rate FiO2 06/16/17 09:41 109 125/78 06/16/17 09:40 125/78 06/16/17 04:00 87 06/16/17 00:00 101 06/15/17 20:00 116 06/15/17 20:00 98.2 105 24 139/87 95 Room Air 06/15/17 19:10 108 18 94 Room Air 21 06/15/17 19:03 110 20 93 Room Air 21 06/15/17 19:00 91 Nasal Cannula 21 06/15/17 19:00 Room Air 21 06/15/17 16:00 112 06/15/17 16:00 98.6 107 24 128/78 92 Room Air 06/15/17 13:04 82 18 99 Nasal Cannula 3.0 32 06/15/17 12:54 79 20 96 Nasal Cannula 3.0 32 06/15/17 12:00 102 06/15/17 12:00 98.1 103 21 140/86 93 Room Air 06/15/17 10:48 92 156/97 06/15/17 10:48 156/97 General Appearance: WD/WN HEENT: normocephalic, anicteric Respiratory/Chest: chest wall non-tender, normal breath sounds Breasts: no masses Cardiovascular: normal rate, regular rhythm Abdomen: soft, non tender, no organomegaly Genitourinary: normal external genitalia Extremities: no cyanosis, no clubbing Skin: no rash, no ulcers Current Medications Medications (Trade) Dose Ordered Sig/Roro Route PRN Reason Start Time Stop Time Status Last Admin Dose Admin Acetaminophen (Tylenol) 650 mg Q4H PRN ORAL fever 06/08/17 21:45 07/08/17 21:44 Al Hydroxide/Mg Hydroxide (Mylanta II) 30 ml Q6H PRN ORAL dyspepsia 06/08/17 21:45 07/08/17 21:44 Amlodipine Besylate (Norvasc) 5 mg DAILY ORAL 06/13/17 19:00 07/13/17 18:59 06/16/17 09:41 Carbidopa/Levodopa (Sinemet 25/100) 1 ea EVERY 8 HOURS ORAL 06/10/17 14:00 07/09/17 08:59 06/16/17 05:23 Heparin Sodium (Porcine) (Heparin 5000 units/ml) 5,000 units EVERY 12 HOURS SUBQ 06/09/17 09:00 07/09/17 08:59 06/15/17 20:03 Losartan Potassium (Cozaar) 25 mg DAILY ORAL 06/13/17 09:00 07/13/17 08:59 06/16/17 09:40 Nitroglycerin (Ntg) 0.4 mg Q5MIN X 3 DOSES PRN SL Prn Chest Pain 06/08/17 21:45 07/08/17 21:44 Ondansetron HCl (Zofran) 4 mg Q6H PRN IVP Nausea & Vomiting 06/08/17 21:45 07/08/17 21:44 Polyethylene Glycol (Miralax) 17 gm DAILYPRN PRN ORAL Constipation 06/08/17 21:45 07/08/17 21:44 Prednisone (predniSONE) 40 mg Taper DAILY ORAL 06/14/17 09:00 06/20/17 08:59 06/16/17 09:41 Promethazine HCl/ Codeine (Phenergan with Codeine) 5 ml Q4H PRN ORAL For Cough 06/08/17 21:45 07/08/17 21:44 06/16/17 09:38 Vitamin A/Vitamin D (A & D Oint) 1 applic EVERY 12 HOURS TOPIC 06/09/17 09:00 07/09/17 08:59 06/16/17 09:42 KERRI YIN Jun 16, 2017 10:03
--- NOTE | 2017-06-16 10:59 | Diagnostic Imaging Report ---
Indication: Dyspnea Comparison: 06/13/17 A single view chest radiograph was obtained. Findings: Convex density right paratracheal superior mediastinal region again noted unchanged No definite infiltrate or pulmonary vascular congestion identified. The heart is enlarged. The aorta is mildly enlarged consistent with atherosclerotic vascular disease. The bones are osteopenic. Impression: No acute disease
[2017-06-16] MEDS ORDERED: Nitroglycerin Subl 0.4mg tab SL PRN (11:00)
[2017-06-16] MEDS ORDERED: Promethazine/Codeine 5ml UD ORAL PRN (11:30)
[2017-06-16] MEDS ORDERED: Miralax 17gm pkt ORAL PRN (11:30)
[2017-06-16 12:00] VITALS: BP 140/77
--- NOTE | 2017-06-16 12:08 | Infectious Diseases Prog Note ---
Assessment/Plan Assessment/Plan ASSESSMENT: The patient is a 81-year-old female with, Community-acquired pneumonia - SCx NRF ; s/p Rx -CXR 06/16: No acute disease -CXR 06/13: Likely developing left-sided pleural effusion and basilar parenchymal disease. Right paratracheal prominence, mass not excludable. Consider CT for better characterization if clinically indicated - CXR 06/10: The lungs and pleural spaces are clear. CONS bacteremia 1/4, m/l contaminant - repeat BCx Neg - TTE neg veg Leukocytosis - resolved, afebrile ( on steroids) History of sleep apnea requiring BiPAP. History of breast cancer status post lumpectomy. History of overactive bladder. History of osteoarthritis. Spinal stenosis. Parkinson disease NKDA Full Code PLAN: - Continue to monitor off abx ( 06/14 SP Levaquin #5) ( 06/11 SP vancomycin d# 3 ) ( 06/10 SP cefepime d# 2 ) taper steroids per primary Monitor CBC, temperatures Monitor BMP. Monitor chest x-ray Subjective Allergies: Coded Allergies: No Known Allergies (Unverified , 01/11/14) Subjective afebrile off abx no leukocytosis Bcx Neg Objective Vital Signs Last 24 Hour Vital Signs Date Time Temp Pulse Resp B/P (MAP) Pulse Ox O2 Delivery O2 Flow Rate FiO2 06/16/17 09:41 109 125/78 06/16/17 09:40 125/78 06/16/17 08:00 84 06/16/17 08:00 98.1 109 18 125/78 90 Room Air 06/16/17 04:00 87 06/16/17 00:00 101 06/15/17 20:00 116 06/15/17 20:00 98.2 105 24 139/87 95 Room Air 06/15/17 19:10 108 18 94 Room Air 21 06/15/17 19:03 110 20 93 Room Air 21 06/15/17 19:00 91 Nasal Cannula 21 06/15/17 19:00 Room Air 21 06/15/17 16:00 112 06/15/17 16:00 98.6 107 24 128/78 92 Room Air 06/15/17 13:04 82 18 99 Nasal Cannula 3.0 32 06/15/17 12:54 79 20 96 Nasal Cannula 3.0 32 Height (Feet): 5 Height (Inches): 0.00 Weight (Pounds): 276 Objective General Appearance: no acute distress, other - awake, alert, responsive female in NAD HEENT: normocephalic, atraumatic, anicteric Respiratory/Chest: R side scattered rhonchi , no respiratory distress, no accessory muscle use Cardiovascular: normal peripheral pulses, SR on tele Abdomen: normal bowel sounds, soft, non tender Extremities: no edema, pedal pulses normal Neurologic/Psychiatric: abnormal gait - with walker , alert, responsive, normal mood/affect Musculoskeletal: atrophy - BLE Current Medications Medications (Trade) Dose Ordered Sig/Roro Route PRN Reason Start Time Stop Time Status Last Admin Dose Admin Acetaminophen (Tylenol) 650 mg Q4H PRN ORAL fever 06/16/17 11:30 07/08/17 11:29 Al Hydroxide/Mg Hydroxide (Mylanta II) 30 ml Q6H PRN ORAL dyspepsia 06/16/17 15:30 07/08/17 15:29 Amlodipine Besylate (Norvasc) 5 mg DAILY ORAL 06/17/17 09:00 07/13/17 18:59 Carbidopa/Levodopa (Sinemet 25/100) 1 ea EVERY 8 HOURS ORAL 06/16/17 14:00 07/09/17 08:59 Heparin Sodium (Porcine) (Heparin 5000 units/ml) 5,000 units EVERY 12 HOURS SUBQ 06/16/17 21:00 07/09/17 08:59 Losartan Potassium (Cozaar) 25 mg DAILY ORAL 06/17/17 09:00 07/13/17 08:59 Nitroglycerin (Ntg) 0.4 mg Q5MIN X 3 DOSES PRN SL Prn Chest Pain 06/16/17 11:00 07/08/17 21:44 Ondansetron HCl (Zofran) 4 mg Q6H PRN IVP Nausea & Vomiting 06/16/17 11:30 07/08/17 11:29 Polyethylene Glycol (Miralax) 17 gm DAILYPRN PRN ORAL Constipation 06/16/17 11:30 07/08/17 11:29 Prednisone (predniSONE) 40 mg Taper DAILY ORAL 06/17/17 09:00 06/23/17 08:59 UNV Promethazine HCl/ Codeine (Phenergan with Codeine) 5 ml Q4H PRN ORAL For Cough 11/21/17 11:30 07/08/17 11:29 Vitamin A/Vitamin D (A & D Oint) 1 applic EVERY 12 HOURS TOPIC 06/16/17 21:00 07/09/17 08:59 Carol Ann Bunn M.D. Jun 16, 2017 12:07
[2017-06-16] MEDS ORDERED: Mylanta II UD 30ml ORAL PRN (15:30)
[2017-06-16 16:00] VITALS: BP 141/88
[2017-06-16 20:00] VITALS: BP 111/74
[2017-06-16] MEDS ORDERED: dilTIAZem HCl 50mg/10ml Inj IVP PRN (20:00)
[2017-06-16 20:45] VITALS: BP 105/73
[2017-06-16] MEDS ORDERED: Vitamin A&D Oint 2oz Tube TOPIC SCH (21:00)
[2017-06-17] VITALS (7 sets, daily range): BP systolic 102–154; BP diastolic 57–97
[2017-06-17] MEDS: Sinemet 25/100 tab ORAL SCH ×3 (05:54→22:01)
[2017-06-17] MEDS: Heparin 5000 units/ml inj SUBQ SCH ×2 (09:00→22:07)
[2017-06-17] MEDS: Losartan 25mg tab ORAL SCH (09:04)
[2017-06-17] MEDS: Vitamin A&D Oint 2oz Tube TOPIC SCH ×2 (09:06→21:00)
--- NOTE | 2017-06-17 10:22 | Infectious Diseases Prog Note ---
Assessment/Plan Assessment/Plan ASSESSMENT: The patient is a 81-year-old female with, Community-acquired pneumonia - SCx NRF ; s/p Rx -CXR 06/16: No acute disease -CXR 06/13: Likely developing left-sided pleural effusion and basilar parenchymal disease. Right paratracheal prominence, mass not excludable. Consider CT for better characterization if clinically indicated - CXR 06/10: The lungs and pleural spaces are clear. CONS bacteremia 1/4, m/l contaminant - repeat BCx Neg - TTE neg veg Leukocytosis - resolved, afebrile ( on steroids) History of sleep apnea requiring BiPAP. History of breast cancer status post lumpectomy. History of overactive bladder. History of osteoarthritis. Spinal stenosis. Parkinson disease NKDA Full Code PLAN: - Continue to monitor off abx ( 06/14 SP Levaquin #5) ( 06/11 SP vancomycin d# 3 ) ( 06/10 SP cefepime d# 2 ) taper steroids per primary Monitor CBC, temperatures Monitor BMP. Monitor chest x-ray Subjective Allergies: Coded Allergies: No Known Allergies (Unverified , 01/11/14) Subjective afebrile off abx no leukocytosis Objective Vital Signs Last 24 Hour Vital Signs Date Time Temp Pulse Resp B/P (MAP) Pulse Ox O2 Delivery O2 Flow Rate FiO2 06/17/17 09:04 154/97 06/17/17 09:03 81 154/97 06/17/17 07:38 Nasal Cannula 2.0 28 06/17/17 07:35 92 Nasal Cannula 2.0 28 06/17/17 04:00 98.0 68 18 121/71 95 Nasal Cannula 3.0 06/17/17 04:00 62 06/17/17 00:00 97.9 92 20 102/57 96 Nasal Cannula 3.0 21 06/17/17 00:00 95 06/17/17 00:00 95 06/16/17 20:45 97.9 104 20 105/73 96 Nasal Cannula 3.0 21 06/16/17 20:00 97.9 196 19 111/74 94 Nasal Cannula 3.0 06/16/17 19:00 94 Nasal Cannula 3.0 06/16/17 19:00 Nasal Cannula 3.0 06/16/17 16:00 97.6 101 21 141/88 99 Nasal Cannula 3.0 06/16/17 12:00 98.2 80 18 140/77 90 Nasal Cannula 2.0 Height (Feet): 5 Height (Inches): 0.00 Weight (Pounds): 276 Objective General Appearance: no acute distress, other - awake, alert, responsive female in NAD HEENT: normocephalic, atraumatic, anicteric Respiratory/Chest: CTA x2 Cardiovascular: normal peripheral pulses, SR on tele Abdomen: normal bowel sounds, soft, non tender Extremities: no edema, pedal pulses normal Neurologic/Psychiatric: abnormal gait - with walker , alert, responsive, normal mood/affect Musculoskeletal: atrophy - BLE Current Medications Medications (Trade) Dose Ordered Sig/Roro Route PRN Reason Start Time Stop Time Status Last Admin Dose Admin Acetaminophen (Tylenol) 650 mg Q4H PRN ORAL fever 06/16/17 11:30 07/08/17 11:29 Al Hydroxide/Mg Hydroxide (Mylanta II) 30 ml Q6H PRN ORAL dyspepsia 06/16/17 15:30 07/08/17 15:29 Amlodipine Besylate (Norvasc) 5 mg DAILY ORAL 06/17/17 09:00 07/13/17 18:59 06/17/17 09:03 Carbidopa/Levodopa (Sinemet 25/100) 1 ea EVERY 8 HOURS ORAL 06/16/17 14:00 07/09/17 08:59 06/17/17 05:54 Diltiazem HCl (Cardizem) 10 mg EVERY 2 HOURS PRN IVP To Patient Comfort; HR>120 06/16/17 20:00 07/16/17 19:59 Heparin Sodium (Porcine) (Heparin 5000 units/ml) 5,000 units EVERY 12 HOURS SUBQ 06/16/17 21:00 07/09/17 08:59 06/16/17 21:27 Losartan Potassium (Cozaar) 25 mg DAILY ORAL 06/17/17 09:00 07/13/17 08:59 06/17/17 09:04 Nitroglycerin (Ntg) 0.4 mg Q5MIN X 3 DOSES PRN SL Prn Chest Pain 06/16/17 11:00 07/08/17 21:44 Ondansetron HCl (Zofran) 4 mg Q6H PRN IVP Nausea & Vomiting 06/16/17 11:30 07/08/17 11:29 Polyethylene Glycol (Miralax) 17 gm DAILYPRN PRN ORAL Constipation 06/16/17 11:30 07/08/17 11:29 Prednisone (predniSONE) 60 mg Taper DAILY ORAL 06/17/17 09:00 06/23/17 08:59 06/17/17 09:03 Promethazine HCl/ Codeine (Phenergan with Codeine) 5 ml Q4H PRN ORAL For Cough 06/16/17 11:30 07/08/17 11:29 Vitamin A/Vitamin D (A & D Oint) 1 applic EVERY 12 HOURS TOPIC 06/16/17 21:00 07/16/17 20:59 06/17/17 09:06 Carol Ann Ellis M.D. Jun 17, 2017 10:22
--- NOTE | 2017-06-17 11:37 | Pulmonology Progress Note ---
Assessment/Plan Problems: (1) Acute respiratory failure (2) Purulent bronchitis (3) At high risk for aspiration (4) Pneumonia (5) Peripheral edema (6) Parkinson disease Assessment/Plan repeat cxr yesterday is normal without any acute disease taper steroids to 40 q4 continues to improve on nasal cannula now feeling much better off abx BP better controlled. dc to guardian if ok with Dr. Díaz. Subjective Interval Events: was transferred to [facility] last night because of tachycardia, pt refused EKG Allergies: Coded Allergies: No Known Allergies (Unverified , 01/11/14) Objective Last 24 Hour Vital Signs Date Time Temp Pulse Resp B/P (MAP) Pulse Ox O2 Delivery O2 Flow Rate FiO2 06/17/17 09:04 154/97 06/17/17 09:03 81 154/97 06/17/17 08:00 97.3 81 17 154/97 91 Nasal Cannula 4.0 06/17/17 07:38 Nasal Cannula 2.0 28 06/17/17 07:35 92 Nasal Cannula 2.0 28 06/17/17 04:00 98.0 68 18 121/71 95 Nasal Cannula 3.0 21 06/17/17 04:00 62 06/17/17 00:00 97.9 92 20 102/57 96 Nasal Cannula 3.0 21 06/17/17 00:00 95 06/17/17 00:00 95 06/16/17 20:45 97.9 104 20 105/73 96 Nasal Cannula 3.0 21 06/16/17 20:00 97.9 196 19 111/74 94 Nasal Cannula 3.0 06/16/17 19:00 94 Nasal Cannula 3.0 06/16/17 19:00 Nasal Cannula 3.0 06/16/17 16:00 97.6 101 21 141/88 99 Nasal Cannula 3.0 06/16/17 12:00 98.2 80 18 140/77 90 Nasal Cannula 2.0 General Appearance: WD/WN HEENT: normocephalic, anicteric Respiratory/Chest: chest wall non-tender, lungs clear Breasts: no masses Cardiovascular: normal peripheral pulses, regular rhythm Abdomen: normal bowel sounds, soft, non tender Genitourinary: normal external genitalia Extremities: no cyanosis Neurologic/Psychiatric: guide alpine II-XII grossly normal, no motor/sensory deficits Lymphatic: no neck adenopathy, no groin adenopathy Current Medications Medications (Trade) Dose Ordered Sig/Roro Route PRN Reason Start Time Stop Time Status Last Admin Dose Admin Acetaminophen (Tylenol) 650 mg Q4H PRN ORAL fever 06/16/17 11:30 07/08/17 11:29 Al Hydroxide/Mg Hydroxide (Mylanta II) 30 ml Q6H PRN ORAL dyspepsia 06/16/17 15:30 07/08/17 15:29 Amlodipine Besylate (Norvasc) 5 mg DAILY ORAL 06/17/17 09:00 07/13/17 18:59 06/17/17 09:03 Carbidopa/Levodopa (Sinemet 25/100) 1 ea EVERY 8 HOURS ORAL 06/16/17 14:00 07/09/17 08:59 06/17/17 05:54 Diltiazem HCl (Cardizem) 10 mg EVERY 2 HOURS PRN IVP To Patient Comfort; HR>120 06/16/17 20:00 07/16/17 19:59 Heparin Sodium (Porcine) (Heparin 5000 units/ml) 5,000 units EVERY 12 HOURS SUBQ 06/16/17 21:00 07/09/17 08:59 06/16/17 21:27 Losartan Potassium (Cozaar) 25 mg DAILY ORAL 06/17/17 09:00 07/13/17 08:59 06/17/17 09:04 Nitroglycerin (Ntg) 0.4 mg Q5MIN X 3 DOSES PRN SL Prn Chest Pain 06/16/17 11:00 07/08/17 21:44 Ondansetron HCl (Zofran) 4 mg Q6H PRN IVP Nausea & Vomiting 06/16/17 11:30 07/08/17 11:29 Polyethylene Glycol (Miralax) 17 gm DAILYPRN PRN ORAL Constipation 06/16/17 11:30 07/08/17 11:29 Prednisone (predniSONE) 60 mg Taper DAILY ORAL 06/17/17 09:00 06/23/17 08:59 06/17/17 09:03 Promethazine HCl/ Codeine (Phenergan with Codeine) 5 ml Q4H PRN ORAL For Cough 06/16/17 11:30 07/08/17 11:29 Vitamin A/Vitamin D (A & D Oint) 1 applic EVERY 12 HOURS TOPIC 06/16/17 21:00 07/16/17 20:59 06/17/17 09:06 KERRI YIN Jun 17, 2017 11:37
--- NOTE | 2017-06-17 15:43 | Cardiology Report ---
APPROVED REPORT EKG Measurement Heart [id number] Sinus rhythm with premature atrial complexes Otherwise normal ECG
--- NOTE | 2017-06-17 16:54 | Cardiology Progress Note ---
Assessment/Plan Assessment/Plan 1. Shortness of breath and coughing. 2. Obesity. 3. History of breast cancer. 4. Parkinsonism. 5. History of meningioma. 6. History of hypercalcemia. 7. pneumonia 8. Midl 9. Mild pulm htn i was called by rn last ntei (06/16/2017) re pulse noted on bp machine 196 bpm ! !! i asked rn to palpate pulse she called ma back about pulse of 104 , pt was feeling fine and bp was ok as well , i asked them to do ekg and transfer pt to tele and call me if tachy, i never heard back , now on review of ekg form this adm and tele form yest i do not see any sig svt , vt .afib ... on ly sinus and sinus tachy tele sinus , echo normal wall motion mild pasp 43 duplex neg elevated bp will increase norvasc to 7.5 mg ok to snf from cardiac view point Subjective Cardiovascular: Denies: chest pain, lightheadedness Respiratory: Reports: cough, Denies: shortness of breath Gastrointestinal/Abdominal: Denies: abdominal pain Genitourinary: Denies: burning Objective Last 24 Hour Vital Signs Date Time Temp Pulse Resp B/P (MAP) Pulse Ox O2 Delivery O2 Flow Rate FiO2 06/17/17 12:00 72 06/17/17 12:00 98.0 100 20 148/89 94 Nasal Cannula 4.0 06/17/17 09:04 154/97 06/17/17 09:03 81 154/97 06/17/17 08:00 97.3 81 17 154/97 91 Nasal Cannula 4.0 06/17/17 08:00 69 06/17/17 07:38 Nasal Cannula 2.0 28 06/17/17 07:35 92 Nasal Cannula 2.0 28 06/17/17 04:00 98.0 68 18 121/71 95 Nasal Cannula 3.0 21 06/17/17 04:00 62 06/17/17 00:00 97.9 92 20 102/57 96 Nasal Cannula 3.0 21 06/17/17 00:00 95 06/17/17 00:00 95 06/16/17 20:45 97.9 104 20 105/73 96 Nasal Cannula 3.0 21 06/16/17 20:00 97.9 196 19 111/74 94 Nasal Cannula 3.0 06/16/17 19:00 94 Nasal Cannula 3.0 06/16/17 19:00 Nasal Cannula 3.0 General Appearance: alert Neck: no JVD Cardiovascular: normal rate, regular rhythm Respiratory/Chest: lungs clear Abdomen: normal bowel sounds, non tender, soft Extremities: no swelling FRANDY RAUSCH Jun 17, 2017 16:54
[2017-06-18 04:09] VITALS: BP 142/84
[2017-06-18] MEDS: Sinemet 25/100 tab ORAL SCH ×3 (07:06→22:14)
[2017-06-18 08:00] VITALS: BP 94/56
[2017-06-18] MEDS: Heparin 5000 units/ml inj SUBQ SCH ×2 (09:00→22:17)
[2017-06-18] MEDS: Losartan 25mg tab ORAL SCH (09:00)
[2017-06-18] MEDS: Vitamin A&D Oint 2oz Tube TOPIC SCH ×2 (09:12→21:00)
--- NOTE | 2017-06-18 10:08 | Infectious Diseases Prog Note ---
Assessment/Plan Assessment/Plan ASSESSMENT: The patient is a 81-year-old female with, Community-acquired pneumonia - SCx NRF ; s/p Rx -CXR 06/16: No acute disease -CXR 06/13: Likely developing left-sided pleural effusion and basilar parenchymal disease. Right paratracheal prominence, mass not excludable. Consider CT for better characterization if clinically indicated - CXR 06/10: The lungs and pleural spaces are clear. CONS bacteremia 1/4, m/l contaminant - repeat BCx Neg - TTE neg veg Leukocytosis - resolved, afebrile ( on steroids) History of sleep apnea requiring BiPAP. History of breast cancer status post lumpectomy. History of overactive bladder. History of osteoarthritis. Spinal stenosis. Parkinson disease NKDA Full Code PLAN: - Continue to monitor off abx ( 06/14 SP Levaquin #5) ( 06/11 SP vancomycin d# 3 ) ( 06/10 SP cefepime d# 2 ) taper steroids per primary Monitor CBC, temperatures Monitor BMP. Monitor chest x-ray Subjective Allergies: Coded Allergies: No Known Allergies (Unverified , 01/11/14) Subjective afebrile off abx no leukocytosis Objective Vital Signs Last 24 Hour Vital Signs Date Time Temp Pulse Resp B/P (MAP) Pulse Ox O2 Delivery O2 Flow Rate FiO2 06/18/17 09:00 80 99/56 06/18/17 09:00 99/56 06/18/17 08:00 97.5 80 20 94/56 93 Nasal Cannula 3.0 06/18/17 07:02 Nasal Cannula 2.0 28 06/18/17 07:02 92 Nasal Cannula 2.0 28 06/18/17 04:09 98.4 67 18 142/84 90 Room Air 06/18/17 04:00 61 06/18/17 00:00 89 06/17/17 23:54 97.7 92 18 112/79 95 Nasal Cannula 2.0 06/17/17 20:00 96.1 77 18 106/68 92 Nasal Cannula 2.0 06/17/17 20:00 82 06/17/17 19:30 Nasal Cannula 2.0 28 06/17/17 19:30 92 Nasal Cannula 2.0 28 06/17/17 16:00 82 06/17/17 16:00 98.7 95 20 128/62 94 Nasal Cannula 2.0 06/17/17 12:00 72 06/17/17 12:00 98.0 100 20 148/89 94 Nasal Cannula 4.0 Height (Feet): 5 Height (Inches): 0.00 Weight (Pounds): 276 Objective General Appearance: no acute distress, other - awake, alert, responsive female in NAD HEENT: normocephalic, atraumatic, anicteric Respiratory/Chest: CTA x2 Cardiovascular: normal peripheral pulses, SR on tele Abdomen: normal bowel sounds, soft, non tender Extremities: no edema, pedal pulses normal Neurologic/Psychiatric: abnormal gait - with walker , alert, responsive, normal mood/affect Musculoskeletal: atrophy - BLE Current Medications Medications (Trade) Dose Ordered Sig/Roro Route PRN Reason Start Time Stop Time Status Last Admin Dose Admin Acetaminophen (Tylenol) 650 mg Q4H PRN ORAL fever 06/16/17 11:30 07/08/17 11:29 Al Hydroxide/Mg Hydroxide (Mylanta II) 30 ml Q6H PRN ORAL dyspepsia 06/16/17 15:30 07/08/17 15:29 Amlodipine Besylate (Norvasc) 7.5 mg DAILY ORAL 06/18/17 09:00 07/18/17 08:59 Carbidopa/Levodopa (Sinemet 25/100) 1 ea EVERY 8 HOURS ORAL 06/16/17 14:00 07/09/17 08:59 06/18/17 07:06 Diltiazem HCl (Cardizem) 10 mg EVERY 2 HOURS PRN IVP To Patient Comfort; HR>120 06/16/17 20:00 07/16/17 19:59 Heparin Sodium (Porcine) (Heparin 5000 units/ml) 5,000 units EVERY 12 HOURS SUBQ 06/16/17 21:00 07/09/17 08:59 06/17/17 22:07 Losartan Potassium (Cozaar) 25 mg DAILY ORAL 06/17/17 09:00 07/13/17 08:59 06/17/17 09:04 Nitroglycerin (Ntg) 0.4 mg Q5MIN X 3 DOSES PRN SL Prn Chest Pain 06/16/17 11:00 07/08/17 21:44 Ondansetron HCl (Zofran) 4 mg Q6H PRN IVP Nausea & Vomiting 06/16/17 11:30 07/08/17 11:29 Polyethylene Glycol (Miralax) 17 gm DAILYPRN PRN ORAL Constipation 06/16/17 11:30 07/08/17 11:29 Prednisone (predniSONE) 40 mg Taper DAILY ORAL 06/18/17 09:00 06/22/17 08:59 06/18/17 09:13 Promethazine HCl/ Codeine (Phenergan with Codeine) 5 ml Q4H PRN ORAL For Cough 06/16/17 11:30 07/08/17 11:29 Vitamin A/Vitamin D (A & D Oint) 1 applic EVERY 12 HOURS TOPIC 06/16/17 21:00 07/16/17 20:59 06/18/17 09:12 Carol Ann Ellis M.D. Jun 18, 2017 10:08
--- NOTE | 2017-06-18 10:09 | Pulmonology Progress Note ---
Assessment/Plan Problems: (1) Acute respiratory failure (2) Purulent bronchitis (3) At high risk for aspiration (4) Pneumonia (5) Peripheral edema (6) Parkinson disease Assessment/Plan decrease amlodipine to 7.5, considering SBP < 100 this morning taper steroids to 40 qd continues to improve on nasal cannula now feeling much better Subjective ROS Limited/Unobtainable: No Constitutional: Reports: no symptoms HEENT: Repors: no symptoms Respiratory: Reports: no symptoms Allergies: Coded Allergies: No Known Allergies (Unverified , 01/11/14) Objective Last 24 Hour Vital Signs Date Time Temp Pulse Resp B/P (MAP) Pulse Ox O2 Delivery O2 Flow Rate FiO2 06/18/17 09:00 80 99/56 06/18/17 09:00 99/56 06/18/17 08:00 97.5 80 20 94/56 93 Nasal Cannula 3.0 06/18/17 07:02 Nasal Cannula 2.0 28 06/18/17 07:02 92 Nasal Cannula 2.0 28 06/18/17 04:09 98.4 67 18 142/84 90 Room Air 06/18/17 04:00 61 06/18/17 00:00 89 06/17/17 23:54 97.7 92 18 112/79 95 Nasal Cannula 2.0 06/17/17 20:00 96.1 77 18 106/68 92 Nasal Cannula 2.0 06/17/17 20:00 82 06/17/17 19:30 Nasal Cannula 2.0 28 06/17/17 19:30 92 Nasal Cannula 2.0 28 06/17/17 16:00 82 06/17/17 16:00 98.7 95 20 128/62 94 Nasal Cannula 2.0 06/17/17 12:00 72 06/17/17 12:00 98.0 100 20 148/89 94 Nasal Cannula 4.0 General Appearance: WD/WN HEENT: normocephalic, atraumatic Respiratory/Chest: chest wall non-tender, lungs clear Breasts: no masses Cardiovascular: normal peripheral pulses Abdomen: normal bowel sounds, soft, non tender Genitourinary: normal external genitalia Extremities: no clubbing Skin: no lesions Neurologic/Psychiatric: coke wheeler II-XII grossly normal Lymphatic: no neck adenopathy Current Medications Medications (Trade) Dose Ordered Sig/Roro Route PRN Reason Start Time Stop Time Status Last Admin Dose Admin Acetaminophen (Tylenol) 650 mg Q4H PRN ORAL fever 06/16/17 11:30 07/08/17 11:29 Al Hydroxide/Mg Hydroxide (Mylanta II) 30 ml Q6H PRN ORAL dyspepsia 06/16/17 15:30 07/08/17 15:29 Amlodipine Besylate (Norvasc) 7.5 mg DAILY ORAL 06/18/17 09:00 07/18/17 08:59 Carbidopa/Levodopa (Sinemet 25/100) 1 ea EVERY 8 HOURS ORAL 06/16/17 14:00 07/09/17 08:59 06/18/17 07:06 Diltiazem HCl (Cardizem) 10 mg EVERY 2 HOURS PRN IVP To Patient Comfort; HR>120 06/16/17 20:00 07/16/17 19:59 Heparin Sodium (Porcine) (Heparin 5000 units/ml) 5,000 units EVERY 12 HOURS SUBQ 06/16/17 21:00 07/09/17 08:59 06/17/17 22:07 Losartan Potassium (Cozaar) 25 mg DAILY ORAL 06/17/17 09:00 07/13/17 08:59 06/17/17 09:04 Nitroglycerin (Ntg) 0.4 mg Q5MIN X 3 DOSES PRN SL Prn Chest Pain 06/16/17 11:00 07/08/17 21:44 Ondansetron HCl (Zofran) 4 mg Q6H PRN IVP Nausea & Vomiting 06/16/17 11:30 07/08/17 11:29 Polyethylene Glycol (Miralax) 17 gm DAILYPRN PRN ORAL Constipation 06/16/17 11:30 07/08/17 11:29 Prednisone (predniSONE) 40 mg Taper DAILY ORAL 06/18/17 09:00 06/22/17 08:59 06/18/17 09:13 Promethazine HCl/ Codeine (Phenergan with Codeine) 5 ml Q4H PRN ORAL For Cough 06/16/17 11:30 07/08/17 11:29 Vitamin A/Vitamin D (A & D Oint) 1 applic EVERY 12 HOURS TOPIC 06/16/17 21:00 07/16/17 20:59 06/18/17 09:12 KERRI YIN Jun 18, 2017 10:09
[2017-06-18 12:00] VITALS: BP 117/72
--- NOTE | 2017-06-18 14:48 | Cardiology Progress Note ---
Assessment/Plan Assessment/Plan 1. Shortness of breath and coughing. 2. Obesity. 3. History of breast cancer. 4. Parkinsonism. 5. History of meningioma. 6. History of hypercalcemia. 7. pneumonia 8. Midl 9. Mild pulm htn tele sinus echo normal wall motion mild pasp 43 duplex neg elevated dropped will decrease the norvasc back down ok to snf from cardiac view point d/w family at bedside dvt ppx Subjective Cardiovascular: Denies: chest pain, lightheadedness, palpitations Respiratory: Denies: shortness of breath Gastrointestinal/Abdominal: Denies: abdominal pain Genitourinary: Denies: burning Objective Last 24 Hour Vital Signs Date Time Temp Pulse Resp B/P (MAP) Pulse Ox O2 Delivery O2 Flow Rate FiO2 06/18/17 12:00 97.7 90 21 117/72 95 Nasal Cannula 3.0 06/18/17 12:00 91 06/18/17 09:00 80 99/56 06/18/17 09:00 99/56 06/18/17 08:00 78 06/18/17 08:00 97.5 80 20 94/56 93 Nasal Cannula 3.0 06/18/17 07:02 Nasal Cannula 2.0 28 06/18/17 07:02 92 Nasal Cannula 2.0 28 06/18/17 04:09 98.4 67 18 142/84 90 Room Air 06/18/17 04:00 61 06/18/17 00:00 89 06/17/17 23:54 97.7 92 18 112/79 95 Nasal Cannula 2.0 06/17/17 20:00 96.1 77 18 106/68 92 Nasal Cannula 2.0 06/17/17 20:00 82 06/17/17 19:30 Nasal Cannula 2.0 28 06/17/17 19:30 92 Nasal Cannula 2.0 28 06/17/17 16:00 82 06/17/17 16:00 98.7 95 20 128/62 94 Nasal Cannula 2.0 General Appearance: no apparent distress, alert Neck: supple Cardiovascular: normal rate, regular rhythm Respiratory/Chest: lungs clear, normal breath sounds Abdomen: normal bowel sounds, non tender, soft Extremities: no swelling FRANDY RAUSCH Jun 18, 2017 14:48
[2017-06-18] MEDS ORDERED: Nitroglycerin Subl 0.4mg tab SL PRN ×2 (15:15→21:00)
[2017-06-18] MEDS ORDERED: Mylanta II UD 30ml ORAL PRN ×2 (15:30→21:00)
[2017-06-18] MEDS ORDERED: Miralax 17gm pkt ORAL PRN ×2 (15:30→21:00)
[2017-06-18] MEDS ORDERED: Promethazine/Codeine 5ml UD ORAL PRN ×2 (15:30→21:00)
[2017-06-18 16:00] VITALS: BP 115/80
[2017-06-18] MEDS ORDERED: dilTIAZem HCl 50mg/10ml Inj IVP PRN ×2 (16:00→22:00)
[2017-06-18 20:00] VITALS: BP 131/89
[2017-06-18] MEDS ORDERED: Vitamin A&D Oint 2oz Tube TOPIC SCH (21:00)
[2017-06-18] MEDS ORDERED: Heparin 5000 units/ml inj SUBQ SCH (21:00)
[2017-06-18] MEDS ORDERED: Sinemet 25/100 tab ORAL SCH (22:00)
[2017-06-19] VITALS: BP 125/87
[2017-06-19] MEDS: Sinemet 25/100 tab ORAL SCH ×3 (05:44→21:53)
[2017-06-19 07:17] LABS: BASOPHILS % (AUTO) 0.5 % (0.0-2.0); EOSINOPHILS % (AUTO) 0.2 % (0.0-3.0); LYMPHOCYTES % (AUTO) 21.4 % (20.0-45.0); MEAN CORPUSCULAR HEMOGLOBIN 31.3 PG (27.0-31.0); MEAN CORPUSCULAR HGB CONC 33.8 G/DL (32.0-36.0); MEAN CORPUSCULAR VOLUME 93 FL (80-99); MEAN PLATELET VOLUME 5.3 FL (6.5-10.1); MONOCYTES % (AUTO) 5.6 % (1.0-10.0); NEUTROPHILS % (AUTO) 72.3 % (45.0-75.0); PLATELET COUNT 198 K/UL (150-450); RED BLOOD COUNT 4.99 M/UL (4.20-5.40); RED CELL DISTRIBUTION WIDTH 12.5 % (11.6-14.8); WHITE BLOOD COUNT 11.8 K/UL (4.8-10.8)
[2017-06-19 07:51] LABS: ALANINE AMINOTRANSFERASE 8 U/L (12-78); ALBUMIN/GLOBULIN RATIO 0.9 (1.0-2.7); ANION GAP 11 mmol/L (5-15); ASPARTATE AMINO TRANSFERASE 11 U/L (15-37); CALCIUM 9.8 MG/DL (8.5-10.1); CARBON DIOXIDE 23 MMOL/L (21-32); CHLORIDE 106 MMOL/L (98-107); POTASSIUM 4.1 MMOL/L (3.5-5.1); SODIUM 140 MMOL/L (136-145); TOTAL PROTEIN 6.8 G/DL (6.4-8.2)
[2017-06-19 08:00] VITALS: BP 123/82
[2017-06-19] MEDS ORDERED: Losartan 25mg tab ORAL SCH (09:00)
[2017-06-19] MEDS: Vitamin A&D Oint 2oz Tube TOPIC SCH ×2 (09:00→21:53)
[2017-06-19] MEDS: Heparin 5000 units/ml inj SUBQ SCH ×2 (09:44→21:54)
[2017-06-19] MEDS: Losartan 25mg tab ORAL SCH (09:45)
--- NOTE | 2017-06-19 09:50 | Infectious Diseases Prog Note ---
Assessment/Plan Assessment/Plan ASSESSMENT: The patient is a 81-year-old female with, Community-acquired pneumonia - SCx NRF ; s/p Rx -CXR 06/16: No acute disease -CXR 06/13: Likely developing left-sided pleural effusion and basilar parenchymal disease. Right paratracheal prominence, mass not excludable. Consider CT for better characterization if clinically indicated - CXR 06/10: The lungs and pleural spaces are clear. CONS bacteremia 1/4, m/l contaminant - repeat BCx Neg - TTE neg veg Leukocytosis - mild recurrent; clinically unchanged, afebrile ( on steroids taper) History of sleep apnea requiring BiPAP. History of breast cancer status post lumpectomy. History of overactive bladder. History of osteoarthritis. Spinal stenosis. Parkinson disease NKDA Full Code PLAN: - Continue to monitor off abx ( 06/14 SP Levaquin #5) ( 06/11 SP vancomycin d# 3 ) ( 06/10 SP cefepime d# 2 ) taper steroids per primary Monitor CBC, temperatures; Trend WBC if worsening, reculture Monitor BMP. Monitor chest x-ray Stable for discharge from ID stand point Subjective Allergies: Coded Allergies: No Known Allergies (Unverified , 01/11/14) Subjective afebrile off abx mild leukocytosis; clinically unchanged Objective Vital Signs Last 24 Hour Vital Signs Date Time Temp Pulse Resp B/P (MAP) Pulse Ox O2 Delivery O2 Flow Rate FiO2 06/19/17 07:45 Nasal Cannula 3.0 32 06/19/17 07:45 96 Nasal Cannula 3.0 32 06/19/17 00:00 97.5 99 18 125/87 95 Nasal Cannula 06/18/17 20:00 97.5 100 24 131/89 94 Nasal Cannula 3.0 06/18/17 19:53 95 Nasal Cannula 3.0 32 06/18/17 19:53 Nasal Cannula 3.0 32 06/18/17 16:00 101 06/18/17 16:00 97.5 98 20 115/80 95 Nasal Cannula 3.0 06/18/17 12:00 97.7 90 21 117/72 95 Nasal Cannula 3.0 06/18/17 12:00 91 Height (Feet): 5 Height (Inches): 0.00 Weight (Pounds): 276 Objective General Appearance: no acute distress, other - awake, alert, responsive female in NAD HEENT: normocephalic, atraumatic, anicteric Respiratory/Chest: CTA x2 Cardiovascular: normal peripheral pulses, SR on tele Abdomen: normal bowel sounds, soft, non tender Extremities: no edema, pedal pulses normal Neurologic/Psychiatric: abnormal gait - with walker , alert, responsive, normal mood/affect Musculoskeletal: atrophy - BLE Laboratory Tests Test 06/19/17 05:20 White Blood Count 11.8 K/UL (4.8-10.8) H Red Blood Count 4.99 M/UL (4.20-5.40) Hemoglobin 15.6 G/DL (12.0-16.0) Hematocrit 46.2 % (37.0-47.0) Mean Corpuscular Volume 93 FL (80-99) Mean Corpuscular Hemoglobin 31.3 PG (27.0-31.0) H Mean Corpuscular Hemoglobin Concent 33.8 G/DL (32.0-36.0) Red Cell Distribution Width 12.5 % (11.6-14.8) Platelet Count 198 K/UL (150-450) Mean Platelet Volume 5.3 FL (6.5-10.1) L Neutrophils (%) (Auto) 72.3 % (45.0-75.0) Lymphocytes (%) (Auto) 21.4 % (20.0-45.0) Monocytes (%) (Auto) 5.6 % (1.0-10.0) Eosinophils (%) (Auto) 0.2 % (0.0-3.0) Basophils (%) (Auto) 0.5 % (0.0-2.0) Sodium Level 140 MMOL/L (136-145) Potassium Level 4.1 MMOL/L (3.5-5.1) Chloride Level 106 MMOL/L (98-107) Carbon Dioxide Level 23 MMOL/L (21-32) Anion Gap 11 mmol/L (5-15) Blood Urea Nitrogen 37 mg/dL (7-18) H Creatinine 1.0 MG/DL (0.55-1.30) Estimat Glomerular Filtration Rate mL/min (>60) Glucose Level 130 MG/DL (74-106) H Calcium Level 9.8 MG/DL (8.5-10.1) Total Bilirubin 0.6 MG/DL (0.2-1.0) Aspartate Amino Transf (AST/SGOT) 11 U/L (15-37) L Alanine Aminotransferase (ALT/SGPT) 8 U/L (12-78) L Alkaline Phosphatase 60 U/L (46-116) Pro-B-Type Natriuretic Peptide 63 pg/mL (0-125) Total Protein 6.8 G/DL (6.4-8.2) Albumin 3.2 G/DL (3.4-5.0) L Globulin 3.6 g/dL Albumin/Globulin Ratio 0.9 (1.0-2.7) L Current Medications Medications (Trade) Dose Ordered Sig/Roro Route PRN Reason Start Time Stop Time Status Last Admin Dose Admin Acetaminophen (Tylenol) 650 mg Q4H PRN ORAL T>100.5 06/18/17 21:00 07/08/17 20:59 Al Hydroxide/Mg Hydroxide (Mylanta II) 30 ml Q6H PRN ORAL dyspepsia 06/18/17 21:00 07/08/17 20:59 Amlodipine Besylate (Norvasc) 5 mg DAILY ORAL 06/19/17 09:00 07/19/17 08:59 Carbidopa/Levodopa (Sinemet 25/100) 1 ea EVERY 8 HOURS ORAL 06/18/17 22:00 07/09/17 08:59 06/19/17 05:44 Heparin Sodium (Porcine) (Heparin 5000 units/ml) 5,000 units EVERY 12 HOURS SUBQ 06/18/17 21:00 07/09/17 08:59 06/18/17 22:17 Losartan Potassium (Cozaar) 25 mg DAILY ORAL 06/19/17 09:00 07/13/17 08:59 Nitroglycerin (Ntg) 0.4 mg Q5MIN X 3 DOSES PRN SL Prn Chest Pain 06/18/17 21:00 07/08/17 20:59 Ondansetron HCl (Zofran) 4 mg Q6H PRN IVP Nausea & Vomiting 06/18/17 21:00 07/18/17 20:59 Polyethylene Glycol (Miralax) 17 gm DAILYPRN PRN ORAL Constipation 06/18/17 21:00 07/18/17 20:59 Prednisone (predniSONE) 30 mg Taper DAILY ORAL 06/18/17 09:00 06/22/17 08:59 06/18/17 09:13 Promethazine HCl/ Codeine (Phenergan with Codeine) 5 ml Q4H PRN ORAL For Cough 06/18/17 21:00 07/08/17 20:59 Vitamin A/Vitamin D (A & D Oint) 1 applic EVERY 12 HOURS TOPIC 06/18/17 21:00 07/16/17 20:59 06/18/17 21:00 Carol Ann Ellis M.D. Jun 19, 2017 09:50
--- NOTE | 2017-06-19 11:52 | Pulmonology Progress Note ---
Assessment/Plan Problems: (1) Acute respiratory failure (2) Purulent bronchitis (3) At high risk for aspiration (4) Pneumonia (5) Peripheral edema (6) Parkinson disease Assessment/Plan no new complains son at the bed site taper steroids to 40 qd continues to improve on nasal cannula now feeling much better dc planning Subjective ROS Limited/Unobtainable: No Constitutional: Reports: no symptoms HEENT: Repors: no symptoms Respiratory: Reports: no symptoms Allergies: Coded Allergies: No Known Allergies (Unverified , 01/11/14) Objective Last 24 Hour Vital Signs Date Time Temp Pulse Resp B/P (MAP) Pulse Ox O2 Delivery O2 Flow Rate FiO2 06/19/17 09:45 125/87 06/19/17 09:45 99 125/87 06/19/17 08:00 97.8 79 20 123/82 98 Room Air 06/19/17 07:45 Nasal Cannula 3.0 32 06/19/17 07:45 96 Nasal Cannula 3.0 32 06/19/17 00:00 97.5 99 18 125/87 95 Nasal Cannula 06/18/17 20:00 97.5 100 24 131/89 94 Nasal Cannula 3.0 06/18/17 19:53 95 Nasal Cannula 3.0 32 06/18/17 19:53 Nasal Cannula 3.0 32 06/18/17 16:00 101 06/18/17 16:00 97.5 98 20 115/80 95 Nasal Cannula 3.0 06/18/17 12:00 97.7 90 21 117/72 95 Nasal Cannula 3.0 06/18/17 12:00 91 General Appearance: WD/WN HEENT: normocephalic, atraumatic Respiratory/Chest: chest wall non-tender, lungs clear Breasts: no masses Cardiovascular: normal rate Abdomen: normal bowel sounds, no organomegaly Extremities: no cyanosis Skin: no rash, no lesions Laboratory Tests 06/19/17 05:20: White Blood Count 11.8H, Red Blood Count 4.99, Hemoglobin 15.6, Hematocrit 46.2 , Mean Corpuscular Volume 93, Mean Corpuscular Hemoglobin 31.3H, Mean Corpuscular Hemoglobin Concent 33.8, Red Cell Distribution Width 12.5, Platelet Count 198, Mean Platelet Volume 5.3L, Neutrophils (%) (Auto) 72.3, Lymphocytes ( %) (Auto) 21.4, Monocytes (%) (Auto) 5.6, Eosinophils (%) (Auto) 0.2, Basophils (%) (Auto) 0.5, Sodium Level 140, Potassium Level 4.1, Chloride Level 106, Carbon Dioxide Level 23, Anion Gap 11, Blood Urea Nitrogen 37H, Creatinine 1.0, Estimat Glomerular Filtration Rate , Glucose Level 130H, Calcium Level 9.8, Total Bilirubin 0.6, Aspartate Amino Transf (AST/SGOT) 11L, Alanine Aminotransferase (ALT/SGPT) 8L, Alkaline Phosphatase 60, Pro-B-Type Natriuretic Peptide 63, Total Protein 6.8, Albumin 3.2L, Globulin 3.6, Albumin/Globulin Ratio 0.9L Current Medications Medications (Trade) Dose Ordered Sig/Roro Route PRN Reason Start Time Stop Time Status Last Admin Dose Admin Acetaminophen (Tylenol) 650 mg Q4H PRN ORAL T>100.5 06/18/17 21:00 07/08/17 20:59 Al Hydroxide/Mg Hydroxide (Mylanta II) 30 ml Q6H PRN ORAL dyspepsia 06/18/17 21:00 07/08/17 20:59 Amlodipine Besylate (Norvasc) 5 mg DAILY ORAL 06/19/17 09:00 07/19/17 08:59 06/19/17 09:45 Carbidopa/Levodopa (Sinemet 25/100) 1 ea EVERY 8 HOURS ORAL 06/18/17 22:00 07/09/17 08:59 06/19/17 05:44 Heparin Sodium (Porcine) (Heparin 5000 units/ml) 5,000 units EVERY 12 HOURS SUBQ 06/18/17 21:00 07/09/17 08:59 06/19/17 09:44 Losartan Potassium (Cozaar) 25 mg DAILY ORAL 06/19/17 09:00 07/13/17 08:59 06/19/17 09:45 Nitroglycerin (Ntg) 0.4 mg Q5MIN X 3 DOSES PRN SL Prn Chest Pain 06/18/17 21:00 07/08/17 20:59 Ondansetron HCl (Zofran) 4 mg Q6H PRN IVP Nausea & Vomiting 06/18/17 21:00 07/18/17 20:59 Polyethylene Glycol (Miralax) 17 gm DAILYPRN PRN ORAL Constipation 06/18/17 21:00 07/18/17 20:59 Prednisone (predniSONE) 30 mg Taper DAILY ORAL 06/18/17 09:00 06/22/17 08:59 06/19/17 09:45 Promethazine HCl/ Codeine (Phenergan with Codeine) 5 ml Q4H PRN ORAL For Cough 06/18/17 21:00 07/08/17 20:59 Vitamin A/Vitamin D (A & D Oint) 1 applic EVERY 12 HOURS TOPIC 06/18/17 21:00 07/16/17 20:59 06/19/17 09:00 KERRI YIN Jun 19, 2017 11:52
[2017-06-19 12:00] VITALS: BP 110/72
[2017-06-19 16:00] VITALS: BP 124/70
[2017-06-19 20:00] VITALS: BP 95/71
[2017-06-20] MEDS: Sinemet 25/100 tab ORAL SCH ×3 (06:21→20:38)
[2017-06-20 07:41] LABS: BASOPHILS % (AUTO) 0.6 % (0.0-2.0); EOSINOPHILS % (AUTO) 0.5 % (0.0-3.0); LYMPHOCYTES % (AUTO) 25.8 % (20.0-45.0); MEAN CORPUSCULAR HEMOGLOBIN 30.7 PG (27.0-31.0); MEAN CORPUSCULAR HGB CONC 33.3 G/DL (32.0-36.0); MEAN CORPUSCULAR VOLUME 92 FL (80-99); MEAN PLATELET VOLUME 5.4 FL (6.5-10.1); MONOCYTES % (AUTO) 5.2 % (1.0-10.0); NEUTROPHILS % (AUTO) 67.9 % (45.0-75.0); PLATELET COUNT 186 K/UL (150-450); RED BLOOD COUNT 5.13 M/UL (4.20-5.40); RED CELL DISTRIBUTION WIDTH 12.3 % (11.6-14.8); WHITE BLOOD COUNT 11.8 K/UL (4.8-10.8)
[2017-06-20 08:00] VITALS: BP 109/69
[2017-06-20] MEDS: Losartan 25mg tab ORAL SCH (08:51)
[2017-06-20] MEDS: Heparin 5000 units/ml inj SUBQ SCH ×2 (08:53→20:42)
[2017-06-20] MEDS: Vitamin A&D Oint 2oz Tube TOPIC SCH ×2 (08:54→20:38)
[2017-06-20 12:00] VITALS: BP 136/85
--- NOTE | 2017-06-20 14:31 | Infectious Diseases Prog Note ---
Assessment/Plan Assessment/Plan ASSESSMENT: The patient is a 81-year-old female with, Community-acquired pneumonia - SCx NRF ; s/p Rx -CXR 06/16: No acute disease -CXR 06/13: Likely developing left-sided pleural effusion and basilar parenchymal disease. Right paratracheal prominence, mass not excludable. Consider CT for better characterization if clinically indicated - CXR 06/10: The lungs and pleural spaces are clear. CONS bacteremia 1/4, m/l contaminant - repeat BCx Neg - TTE neg veg Leukocytosis - mild recurrent; clinically unchanged, afebrile ( on steroids taper) History of sleep apnea requiring BiPAP. History of breast cancer status post lumpectomy. History of overactive bladder. History of osteoarthritis. Spinal stenosis. Parkinson disease NKDA Full Code PLAN: - Continue to monitor off abx ( 06/14 SP Levaquin #5) ( 06/11 SP vancomycin d# 3 ) ( 06/10 SP cefepime d# 2 ) taper steroids per primary Monitor CBC, temperatures; Trend WBC if worsening, reculture Monitor BMP. Monitor chest x-ray Stable for discharge from ID stand point Subjective Constitutional: Denies: no symptoms, fever, chills, fatigue, anorexia, drenching sweats, other Allergies: Coded Allergies: No Known Allergies (Unverified , 01/11/14) Objective Vital Signs Last 24 Hour Vital Signs Date Time Temp Pulse Resp B/P (MAP) Pulse Ox O2 Delivery O2 Flow Rate FiO2 06/20/17 13:28 96 Room Air 06/20/17 12:00 98.0 73 20 136/85 99 Nasal Cannula 06/20/17 08:51 06/20/17 08:51 93 06/20/17 08:00 98.3 70 19 109/69 96 Nasal Cannula 2.0 06/20/17 07:35 95 Nasal Cannula 3.0 32 06/20/17 07:35 Nasal Cannula 3.0 32 06/19/17 20:00 98.1 93 20 95/71 95 Nasal Cannula 2.0 06/19/17 18:30 Nasal Cannula 3.0 32 06/19/17 18:30 95 Nasal Cannula 3.0 32 06/19/17 16:00 98.6 81 20 124/70 93 Room Air Height (Feet): 5 Height (Inches): 0.00 Weight (Pounds): 276 HEENT: anicteric Respiratory/Chest: no accessory muscle use Cardiovascular: no gallop/murmur Abdomen: no organomegaly Laboratory Tests Test 06/20/17 06:28 White Blood Count 11.8 K/UL (4.8-10.8) H Red Blood Count 5.13 M/UL (4.20-5.40) Hemoglobin 15.8 G/DL (12.0-16.0) Hematocrit 47.3 % (37.0-47.0) H Mean Corpuscular Volume 92 FL (80-99) Mean Corpuscular Hemoglobin 30.7 PG (27.0-31.0) Mean Corpuscular Hemoglobin Concent 33.3 G/DL (32.0-36.0) Red Cell Distribution Width 12.3 % (11.6-14.8) Platelet Count 186 K/UL (150-450) Mean Platelet Volume 5.4 FL (6.5-10.1) L Neutrophils (%) (Auto) 67.9 % (45.0-75.0) Lymphocytes (%) (Auto) 25.8 % (20.0-45.0) Monocytes (%) (Auto) 5.2 % (1.0-10.0) Eosinophils (%) (Auto) 0.5 % (0.0-3.0) Basophils (%) (Auto) 0.6 % (0.0-2.0) Current Medications Medications (Trade) Dose Ordered Sig/Roro Route PRN Reason Start Time Stop Time Status Last Admin Dose Admin Acetaminophen (Tylenol) 650 mg Q4H PRN ORAL T>100.5 06/18/17 21:00 07/08/17 20:59 Al Hydroxide/Mg Hydroxide (Mylanta II) 30 ml Q6H PRN ORAL dyspepsia 06/18/17 21:00 07/08/17 20:59 Amlodipine Besylate (Norvasc) 5 mg DAILY ORAL 06/19/17 09:00 07/19/17 08:59 06/19/17 09:45 Carbidopa/Levodopa (Sinemet 25/100) 1 ea EVERY 8 HOURS ORAL 06/18/17 22:00 07/09/17 08:59 06/20/17 14:15 Heparin Sodium (Porcine) (Heparin 5000 units/ml) 5,000 units EVERY 12 HOURS SUBQ 06/18/17 21:00 07/09/17 08:59 06/19/17 21:54 Losartan Potassium (Cozaar) 25 mg DAILY ORAL 06/19/17 09:00 07/13/17 08:59 06/19/17 09:45 Nitroglycerin (Ntg) 0.4 mg Q5MIN X 3 DOSES PRN SL Prn Chest Pain 06/18/17 21:00 07/08/17 20:59 Ondansetron HCl (Zofran) 4 mg Q6H PRN IVP Nausea & Vomiting 06/18/17 21:00 07/18/17 20:59 Polyethylene Glycol (Miralax) 17 gm DAILYPRN PRN ORAL Constipation 06/18/17 21:00 07/18/17 20:59 Prednisone (predniSONE) 20 mg Taper DAILY ORAL 06/18/17 09:00 06/22/17 08:59 06/20/17 08:53 Promethazine HCl/ Codeine (Phenergan with Codeine) 5 ml Q4H PRN ORAL For Cough 06/18/17 21:00 07/08/17 20:59 Vitamin A/Vitamin D (A & D Oint) 1 applic EVERY 12 HOURS TOPIC 06/18/17 21:00 07/16/17 20:59 06/20/17 08:54 JEFFRY MCKNIGHT M.D. Jun 20, 2017 14:30
[2017-06-20 16:00] VITALS: BP 129/79
--- NOTE | 2017-06-20 16:32 | Pulmonology Progress Note ---
Assessment/Plan Problems: (1) Acute respiratory failure (2) Purulent bronchitis (3) At high risk for aspiration (4) Pneumonia (5) Peripheral edema (6) Parkinson disease Assessment/Plan no new complains son at the bed site taper steroids to 40 qd continues to improve on nasal cannula now feeling much better dc planning Subjective ROS Limited/Unobtainable: No Constitutional: Reports: no symptoms HEENT: Repors: no symptoms Respiratory: Reports: no symptoms Allergies: Coded Allergies: No Known Allergies (Unverified , 01/11/14) Objective Last 24 Hour Vital Signs Date Time Temp Pulse Resp B/P (MAP) Pulse Ox O2 Delivery O2 Flow Rate FiO2 06/20/17 13:28 96 Room Air 06/20/17 12:00 98.0 73 20 136/85 99 Nasal Cannula 06/20/17 08:51 95/71 06/20/17 08:51 93 95/71 06/20/17 08:00 98.3 70 19 109/69 96 Nasal Cannula 2.0 06/20/17 07:35 95 Nasal Cannula 3.0 32 06/20/17 07:35 Nasal Cannula 3.0 32 06/19/17 20:00 98.1 93 20 95/71 95 Nasal Cannula 2.0 06/19/17 18:30 Nasal Cannula 3.0 32 06/19/17 18:30 95 Nasal Cannula 3.0 32 Intake and Output 06/20/17 06/21/17 19:00 07:00 Intake Total 360 ml Balance 360 ml Intake Oral 360 ml Objective General Appearance: WD/WN HEENT: normocephalic, anicteric Cardiovascular: normal peripheral pulses, normal rate Abdomen: normal bowel sounds, no organomegaly Genitourinary: normal external genitalia Extremities: no clubbing Skin: no lesions Lymphatic: no neck adenopathy Laboratory Tests 06/20/17 06:28: White Blood Count 11.8H, Red Blood Count 5.13, Hemoglobin 15.8, Hematocrit 47.3H , Mean Corpuscular Volume 92, Mean Corpuscular Hemoglobin 30.7, Mean Corpuscular Hemoglobin Concent 33.3, Red Cell Distribution Width 12.3, Platelet Count 186, Mean Platelet Volume 5.4L, Neutrophils (%) (Auto) 67.9, Lymphocytes ( %) (Auto) 25.8, Monocytes (%) (Auto) 5.2, Eosinophils (%) (Auto) 0.5, Basophils (%) (Auto) 0.6 Current Medications Medications (Trade) Dose Ordered Sig/Roro Route PRN Reason Start Time Stop Time Status Last Admin Dose Admin Acetaminophen (Tylenol) 650 mg Q4H PRN ORAL T>100.5 06/18/17 21:00 07/08/17 20:59 Al Hydroxide/Mg Hydroxide (Mylanta II) 30 ml Q6H PRN ORAL dyspepsia 06/18/17 21:00 07/08/17 20:59 Amlodipine Besylate (Norvasc) 5 mg DAILY ORAL 06/19/17 09:00 07/19/17 08:59 06/19/17 09:45 Carbidopa/Levodopa (Sinemet 25/100) 1 ea EVERY 8 HOURS ORAL 06/18/17 22:00 07/09/17 08:59 06/20/17 14:15 Heparin Sodium (Porcine) (Heparin 5000 units/ml) 5,000 units EVERY 12 HOURS SUBQ 06/18/17 21:00 07/09/17 08:59 06/19/17 21:54 Losartan Potassium (Cozaar) 25 mg DAILY ORAL 06/19/17 09:00 07/13/17 08:59 06/19/17 09:45 Nitroglycerin (Ntg) 0.4 mg Q5MIN X 3 DOSES PRN SL Prn Chest Pain 06/18/17 21:00 07/08/17 20:59 Ondansetron HCl (Zofran) 4 mg Q6H PRN IVP Nausea & Vomiting 06/18/17 21:00 07/18/17 20:59 Polyethylene Glycol (Miralax) 17 gm DAILYPRN PRN ORAL Constipation 06/18/17 21:00 07/18/17 20:59 Prednisone (predniSONE) 20 mg Taper DAILY ORAL 06/18/17 09:00 06/22/17 08:59 06/20/17 08:53 Promethazine HCl/ Codeine (Phenergan with Codeine) 5 ml Q4H PRN ORAL For Cough 06/18/17 21:00 07/08/17 20:59 Vitamin A/Vitamin D (A & D Oint) 1 applic EVERY 12 HOURS TOPIC 06/18/17 21:00 07/16/17 20:59 06/20/17 08:54 KERRI YIN Jun 20, 2017 16:32
[2017-06-20 20:00] VITALS: BP 123/76
[2017-06-21] VITALS: BP 120/79
[2017-06-21] MEDS: Sinemet 25/100 tab ORAL SCH ×3 (06:19→21:55)
[2017-06-21 08:00] VITALS: BP 99/64
[2017-06-21] MEDS: Vitamin A&D Oint 2oz Tube TOPIC SCH ×2 (08:19→21:55)
[2017-06-21] MEDS: Losartan 25mg tab ORAL SCH (09:00)
[2017-06-21] MEDS: Heparin 5000 units/ml inj SUBQ SCH ×2 (09:00→22:01)
[2017-06-21 12:00] VITALS: BP 109/70
--- NOTE | 2017-06-21 14:30 | Pulmonology Progress Note ---
Assessment/Plan Problems: (1) Acute respiratory failure (2) Purulent bronchitis (3) At high risk for aspiration (4) Pneumonia (5) Peripheral edema (6) Parkinson disease Assessment/Plan no new complains son at the bed site taper steroids to 40 qd continues to improve on nasal cannula now feeling much better dc planning Subjective ROS Limited/Unobtainable: No Constitutional: Reports: no symptoms HEENT: Repors: no symptoms Respiratory: Reports: no symptoms Allergies: Coded Allergies: No Known Allergies (Unverified , 01/11/14) Objective Last 24 Hour Vital Signs Date Time Temp Pulse Resp B/P (MAP) Pulse Ox O2 Delivery O2 Flow Rate FiO2 06/21/17 12:00 97.5 75 18 109/70 95 Room Air 06/21/17 09:00 99/64 06/21/17 09:00 81 99/64 06/21/17 08:10 Room Air 21 06/21/17 08:10 93 Room Air 21 06/21/17 08:00 98.1 81 19 99/64 93 Room Air 06/21/17 00:00 97.4 97 22 120/79 96 Room Air 06/20/17 20:08 Room Air 21 06/20/17 20:08 97 Room Air 21 06/20/17 20:00 97.5 98 20 123/76 98 Room Air 06/20/17 16:00 98.2 80 20 129/79 98 Nasal Cannula 2.0 Objective General Appearance: WD/WN HEENT: normocephalic, anicteric Cardiovascular: normal peripheral pulses, normal rate Abdomen: normal bowel sounds, no organomegaly Genitourinary: normal external genitalia Extremities: no clubbing Skin: no lesions Lymphatic: no neck adenopathy Current Medications Medications (Trade) Dose Ordered Sig/Roro Route PRN Reason Start Time Stop Time Status Last Admin Dose Admin Acetaminophen (Tylenol) 650 mg Q4H PRN ORAL T>100.5 06/18/17 21:00 07/08/17 20:59 Al Hydroxide/Mg Hydroxide (Mylanta II) 30 ml Q6H PRN ORAL dyspepsia 06/18/17 21:00 07/08/17 20:59 Amlodipine Besylate (Norvasc) 5 mg DAILY ORAL 06/19/17 09:00 07/19/17 08:59 06/19/17 09:45 Carbidopa/Levodopa (Sinemet 25/100) 1 ea EVERY 8 HOURS ORAL 06/18/17 22:00 07/09/17 08:59 06/21/17 06:19 Heparin Sodium (Porcine) (Heparin 5000 units/ml) 5,000 units EVERY 12 HOURS SUBQ 06/18/17 21:00 07/09/17 08:59 06/20/17 20:42 Losartan Potassium (Cozaar) 25 mg DAILY ORAL 06/19/17 09:00 07/13/17 08:59 06/19/17 09:45 Nitroglycerin (Ntg) 0.4 mg Q5MIN X 3 DOSES PRN SL Prn Chest Pain 06/18/17 21:00 07/08/17 20:59 Ondansetron HCl (Zofran) 4 mg Q6H PRN IVP Nausea & Vomiting 06/18/17 21:00 07/18/17 20:59 Polyethylene Glycol (Miralax) 17 gm DAILYPRN PRN ORAL Constipation 06/18/17 21:00 07/18/17 20:59 Prednisone (predniSONE) 10 mg Taper DAILY ORAL 06/18/17 09:00 06/22/17 08:59 06/21/17 08:18 Promethazine HCl/ Codeine (Phenergan with Codeine) 5 ml Q4H PRN ORAL For Cough 06/18/17 21:00 07/08/17 20:59 Vitamin A/Vitamin D (A & D Oint) 1 applic EVERY 12 HOURS TOPIC 06/18/17 21:00 07/16/17 20:59 06/21/17 08:19 KERRI YIN Jun 21, 2017 14:30
[2017-06-21 16:00] VITALS: BP 117/76
[2017-06-21 20:00] VITALS: BP 113/85
[2017-06-22] MEDS: Sinemet 25/100 tab ORAL SCH ×3 (07:09→21:18)
[2017-06-22 08:00] VITALS: BP 131/67
[2017-06-22] MEDS: Losartan 25mg tab ORAL SCH (09:00)
[2017-06-22] MEDS: Vitamin A&D Oint 2oz Tube TOPIC SCH ×2 (09:00→21:18)
[2017-06-22] MEDS: Heparin 5000 units/ml inj SUBQ SCH ×2 (09:00→21:19)
[2017-06-22 12:00] VITALS: BP 119/83
--- NOTE | 2017-06-22 13:56 | Pulmonology Progress Note ---
Assessment/Plan Problems: (1) Acute respiratory failure (2) Purulent bronchitis (3) At high risk for aspiration (4) Pneumonia (5) Peripheral edema (6) Parkinson disease Assessment/Plan improving doing pt/ot no new complains on room air now feeling much better dc planning Subjective ROS Limited/Unobtainable: No Constitutional: Reports: no symptoms HEENT: Repors: no symptoms Respiratory: Reports: no symptoms Allergies: Coded Allergies: No Known Allergies (Unverified , 01/11/14) Objective Last 24 Hour Vital Signs Date Time Temp Pulse Resp B/P (MAP) Pulse Ox O2 Delivery O2 Flow Rate FiO2 06/22/17 12:35 96 Room Air 06/22/17 12:00 97.9 90 18 119/83 96 06/22/17 09:22 95 Room Air 06/22/17 09:00 113/85 06/22/17 09:00 99 113/85 06/22/17 08:46 Room Air 21 06/22/17 08:43 90 Room Air 21 06/22/17 08:00 97.0 91 18 131/67 95 Room Air 06/21/17 20:42 96 Room Air 21 06/21/17 20:42 Room Air 21 06/21/17 20:00 97.9 99 19 113/85 98 Room Air 06/21/17 16:00 98.2 79 20 117/76 93 Room Air Objective General Appearance: WD/WN HEENT: normocephalic, anicteric Cardiovascular: normal peripheral pulses, normal rate Abdomen: normal bowel sounds, no organomegaly Genitourinary: normal external genitalia Extremities: no clubbing Skin: no lesions Lymphatic: no neck adenopathy Current Medications Medications (Trade) Dose Ordered Sig/Roro Route PRN Reason Start Time Stop Time Status Last Admin Dose Admin Acetaminophen (Tylenol) 650 mg Q4H PRN ORAL T>100.5 06/18/17 21:00 07/08/17 20:59 Al Hydroxide/Mg Hydroxide (Mylanta II) 30 ml Q6H PRN ORAL dyspepsia 06/18/17 21:00 07/08/17 20:59 Amlodipine Besylate (Norvasc) 5 mg DAILY ORAL 06/19/17 09:00 07/19/17 08:59 06/19/17 09:45 Carbidopa/Levodopa (Sinemet 25/100) 1 ea EVERY 8 HOURS ORAL 06/18/17 22:00 07/09/17 08:59 06/22/17 07:09 Heparin Sodium (Porcine) (Heparin 5000 units/ml) 5,000 units EVERY 12 HOURS SUBQ 06/18/17 21:00 07/09/17 08:59 06/21/17 22:01 Losartan Potassium (Cozaar) 25 mg DAILY ORAL 06/19/17 09:00 07/13/17 08:59 06/19/17 09:45 Nitroglycerin (Ntg) 0.4 mg Q5MIN X 3 DOSES PRN SL Prn Chest Pain 06/18/17 21:00 07/08/17 20:59 Ondansetron HCl (Zofran) 4 mg Q6H PRN IVP Nausea & Vomiting 06/18/17 21:00 07/18/17 20:59 Polyethylene Glycol (Miralax) 17 gm DAILYPRN PRN ORAL Constipation 06/18/17 21:00 07/18/17 20:59 Promethazine HCl/ Codeine (Phenergan with Codeine) 5 ml Q4H PRN ORAL For Cough 06/18/17 21:00 07/08/17 20:59 Vitamin A/Vitamin D (A & D Oint) 1 applic EVERY 12 HOURS TOPIC 06/18/17 21:00 07/16/17 20:59 06/22/17 09:00 KERRI YIN Jun 22, 2017 13:56
--- NOTE | 2017-06-22 14:00 | Infectious Diseases Prog Note ---
Assessment/Plan Assessment/Plan ASSESSMENT: The patient is a 81-year-old female with, Community-acquired pneumonia - SCx NRF ; s/p Rx -CXR 06/16: No acute disease -CXR 06/13: Likely developing left-sided pleural effusion and basilar parenchymal disease. Right paratracheal prominence, mass not excludable. Consider CT for better characterization if clinically indicated - CXR 06/10: The lungs and pleural spaces are clear. CONS bacteremia 1/4, m/l contaminant - repeat BCx Neg - TTE neg veg Leukocytosis - mild recurrent; clinically unchanged, afebrile ( on steroids taper) History of sleep apnea requiring BiPAP. History of breast cancer status post lumpectomy. History of overactive bladder. History of osteoarthritis. Spinal stenosis. Parkinson disease NKDA Full Code PLAN: - Continue to monitor off abx ( 06/14 SP Levaquin #5) ( 06/11 SP vancomycin d# 3 ) ( 06/10 SP cefepime d# 2 ) taper steroids per primary Monitor CBC, temperatures; Trend WBC if worsening, reculture; CBC am Monitor BMP. Monitor chest x-ray Stable for discharge from ID stand point Subjective Allergies: Coded Allergies: No Known Allergies (Unverified , 01/11/14) All Systems: reviewed and negative except above Subjective afebrile off abx mild leukocytosis; clinically unchanged no CBC today Objective Vital Signs Last 24 Hour Vital Signs Date Time Temp Pulse Resp B/P (MAP) Pulse Ox O2 Delivery O2 Flow Rate FiO2 06/22/17 12:35 96 Room Air 06/22/17 12:00 97.9 90 18 119/83 96 06/22/17 09:22 95 Room Air 06/22/17 09:00 113/85 06/22/17 09:00 99 113/85 06/22/17 08:46 Room Air 21 06/22/17 08:43 90 Room Air 21 06/22/17 08:00 97.0 91 18 131/67 95 Room Air 06/21/17 20:42 96 Room Air 21 06/21/17 20:42 Room Air 21 06/21/17 20:00 97.9 99 19 113/85 98 Room Air 06/21/17 16:00 98.2 79 20 117/76 93 Room Air Height (Feet): 5 Height (Inches): 0.00 Weight (Pounds): 276 Objective General Appearance: no acute distress, other - awake, alert, responsive female in NAD HEENT: normocephalic, atraumatic, anicteric Respiratory/Chest: CTA x2 Cardiovascular: normal peripheral pulses, SR on tele Abdomen: normal bowel sounds, soft, non tender Extremities: no edema, pedal pulses normal Neurologic/Psychiatric: abnormal gait - with walker , alert, responsive, normal mood/affect Musculoskeletal: atrophy - BLE Current Medications Medications (Trade) Dose Ordered Sig/Roro Route PRN Reason Start Time Stop Time Status Last Admin Dose Admin Acetaminophen (Tylenol) 650 mg Q4H PRN ORAL T>100.5 06/18/17 21:00 07/08/17 20:59 Al Hydroxide/Mg Hydroxide (Mylanta II) 30 ml Q6H PRN ORAL dyspepsia 06/18/17 21:00 07/08/17 20:59 Amlodipine Besylate (Norvasc) 5 mg DAILY ORAL 06/19/17 09:00 07/19/17 08:59 06/19/17 09:45 Carbidopa/Levodopa (Sinemet 25/100) 1 ea EVERY 8 HOURS ORAL 06/18/17 22:00 07/09/17 08:59 06/22/17 07:09 Heparin Sodium (Porcine) (Heparin 5000 units/ml) 5,000 units EVERY 12 HOURS SUBQ 06/18/17 21:00 07/09/17 08:59 06/21/17 22:01 Losartan Potassium (Cozaar) 25 mg DAILY ORAL 06/19/17 09:00 07/13/17 08:59 06/19/17 09:45 Nitroglycerin (Ntg) 0.4 mg Q5MIN X 3 DOSES PRN SL Prn Chest Pain 06/18/17 21:00 07/08/17 20:59 Ondansetron HCl (Zofran) 4 mg Q6H PRN IVP Nausea & Vomiting 06/18/17 21:00 07/18/17 20:59 Polyethylene Glycol (Miralax) 17 gm DAILYPRN PRN ORAL Constipation 06/18/17 21:00 07/18/17 20:59 Promethazine HCl/ Codeine (Phenergan with Codeine) 5 ml Q4H PRN ORAL For Cough 06/18/17 21:00 07/08/17 20:59 Vitamin A/Vitamin D (A & D Oint) 1 applic EVERY 12 HOURS TOPIC 06/18/17 21:00 07/16/17 20:59 06/22/17 09:00 Carol Ann Ellis M.D. Jun 22, 2017 14:00
--- NOTE | 2017-06-22 14:10 | Wound Care Consultation ---
Wound Assessment Wound Assessment : Wound Number: 1 Wound Present on Admission: No New Wound: Yes Status Change of Wound: No Wound Location Body Site Modif: mid, posterior Wound Location Body Site: back Wound Type: blister - serous filled and denuded Sheila Test: Does not Sheila Pressure Ulcer Stage: II Wound Thickness: Partial Thickness Wound Length: 3.0 - scattered Wound Width: 5.0 - scattered Wound Depth: less than 0.1 Percent of Wound [place]/Red: 100 Wound Drainage Description: Serosanguineous Wound Drainage Amount: Scant Wound Drainage Odor: None/Absent Tissue Surrounding Wound: Erythemic Wound General Appearance: Reddened, Draining - scant serous Wound Comment #1 Left buttock stage II pressure ulcer.Resolved. #2 Left ischial tuberosity stage II pressure ulcer. Resolved. #3 Right and left breast and breast folds, noted with denuded skin and purplish discolorations. No discharges/drainage noted at this time. Resolved. #4 Mid posterior back scattered serous filled and denuded blisters. Reassessed this Pt today. Noted good progress on Left buttock. Resolved. Left ischial tuberosity stage II resolved. monitor for any changes of condition to skin, reposition , offload affected site. Recommendations -Local wound care as ordered. -Keep clean and dry -Turn and reposition -Optimize nutrition -Low air loss mattress -Avoid shear and friction. -Offload both heels -Heel protector on both heels -Assess and f/u accordingly for any changes JAKE SALAZAR Jun 22, 2017 14:10
[2017-06-22 16:00] VITALS: BP 125/77
[2017-06-22 20:00] VITALS: BP 135/56
--- NOTE | 2017-06-22 23:32 | Consultation ---
History of Present Illness General Chief Complaint: Dyspnea/Respdistress Present Illness Allergies: Coded Allergies: No Known Allergies (Unverified , 01/11/14) Medication History Scheduled Carbidopa/Levodopa 25-100 Mg* (Sinemet 25-100 Mg Tablet*), 1 TAB ORAL THREE TIMES A DAY, (Reported) Celecoxib* (Celebrex*), 200 MG ORAL DAILY, (Reported) Cholecalciferol (Vitamin D3) (Vitamin D-3), 2,000 UNIT PO DAILY, (Reported) Cinacalcet* (Sensipar*), DAILY, (Reported) Estradiol (Estring), EVERY THREE MONTHS, (Reported) Fesoterodine Fumarate (Toviaz), 8 MG DAILY, (Reported) Fluticasone Propionate (Flonase Allergy Relief), 50 MCG NS BID, (Reported) Glucosamine Hcl (Glucosamine Hcl), 500 MG PO DAILY, (Reported) Multivitamin (Multivitamins), 1 CAP ORAL DAILY, (Reported) Miscellaneous Medications Azelastine Hcl (Azelastine Hcl), 137 MCG NS, (Reported) Patient History Healthcare decision maker KHOI CHIU Resuscitation status Full Code Advanced Directive on File No Physical Exam Last 24 Hour Vital Signs Date Time Temp Pulse Resp B/P (MAP) Pulse Ox O2 Delivery O2 Flow Rate FiO2 06/22/17 20:00 97.5 76 20 135/56 95 Room Air 06/22/17 19:00 Room Air 06/22/17 19:00 94 Room Air 06/22/17 16:32 96 Room Air 06/22/17 16:00 98.2 89 18 125/77 96 06/22/17 12:35 96 Room Air 06/22/17 12:00 97.9 90 18 119/83 96 06/22/17 09:22 95 Room Air 06/22/17 09:00 113/85 06/22/17 09:00 99 113/85 06/22/17 08:46 Room Air 06/22/17 08:43 90 Room Air 06/22/17 08:00 97.0 91 18 131/67 95 Room Air Intake and Output 06/22/17 06/23/17 19:00 07:00 Intake Total 240 ml Balance 240 ml Intake Oral 240 ml # Voids 3 Height (Feet): 5 Height (Inches): 0.00 Weight (Pounds): 276 Medications Current Medications Medications (Trade) Dose Ordered Sig/Roro Route PRN Reason Start Time Stop Time Status Last Admin Dose Admin Acetaminophen (Tylenol) 650 mg Q4H PRN ORAL T>100.5 06/18/17 21:00 07/08/17 20:59 Al Hydroxide/Mg Hydroxide (Mylanta II) 30 ml Q6H PRN ORAL dyspepsia 06/18/17 21:00 07/08/17 20:59 Amlodipine Besylate (Norvasc) 5 mg DAILY ORAL 06/19/17 09:00 07/19/17 08:59 06/19/17 09:45 Carbidopa/Levodopa (Sinemet 25/100) 1 ea EVERY 8 HOURS ORAL 06/18/17 22:00 07/09/17 08:59 06/22/17 21:18 Heparin Sodium (Porcine) (Heparin 5000 units/ml) 5,000 units EVERY 12 HOURS SUBQ 06/18/17 21:00 07/09/17 08:59 06/22/17 21:19 Losartan Potassium (Cozaar) 25 mg DAILY ORAL 06/19/17 09:00 07/13/17 08:59 06/19/17 09:45 Nitroglycerin (Ntg) 0.4 mg Q5MIN X 3 DOSES PRN SL Prn Chest Pain 06/18/17 21:00 07/08/17 20:59 Ondansetron HCl (Zofran) 4 mg Q6H PRN IVP Nausea & Vomiting 06/18/17 21:00 07/18/17 20:59 Polyethylene Glycol (Miralax) 17 gm DAILYPRN PRN ORAL Constipation 06/18/17 21:00 07/18/17 20:59 Promethazine HCl/ Codeine (Phenergan with Codeine) 5 ml Q4H PRN ORAL For Cough 06/18/17 21:00 07/08/17 20:59 Vitamin A/Vitamin D (A & D Oint) 1 applic EVERY 12 HOURS TOPIC 06/18/17 21:00 07/16/17 20:59 06/22/17 21:18 Assessment/Plan Assessment/Plan anxiety d/o awaiting placemeny cont current meds Kelsie Walsh M.D. Jun 22, 2017 23:32
[2017-06-23] VITALS: BP 132/61
[2017-06-23] MEDS: Sinemet 25/100 tab ORAL SCH ×2 (06:21→14:24)
[2017-06-23 06:50] LABS: BASOPHILS % (AUTO) 1.1 % (0.0-2.0); EOSINOPHILS % (AUTO) 2.2 % (0.0-3.0); LYMPHOCYTES % (AUTO) 32.3 % (20.0-45.0); MEAN CORPUSCULAR HEMOGLOBIN 30.3 PG (27.0-31.0); MEAN CORPUSCULAR HGB CONC 32.8 G/DL (32.0-36.0); MEAN CORPUSCULAR VOLUME 93 FL (80-99); MEAN PLATELET VOLUME 5.8 FL (6.5-10.1); MONOCYTES % (AUTO) 6.8 % (1.0-10.0); NEUTROPHILS % (AUTO) 57.6 % (45.0-75.0); PLATELET COUNT 173 K/UL (150-450); RED BLOOD COUNT 4.79 M/UL (4.20-5.40); RED CELL DISTRIBUTION WIDTH 12.6 % (11.6-14.8); WHITE BLOOD COUNT 10.1 K/UL (4.8-10.8)
[2017-06-23 07:24] LABS: ALANINE AMINOTRANSFERASE 6 U/L (12-78); ALBUMIN/GLOBULIN RATIO 0.9 (1.0-2.7); ANION GAP 10 mmol/L (5-15); ASPARTATE AMINO TRANSFERASE 13 U/L (15-37); CALCIUM 8.7 MG/DL (8.5-10.1); CARBON DIOXIDE 22 MMOL/L (21-32); CHLORIDE 108 MMOL/L (98-107); CREATININE 0.8 MG/DL (0.55-1.30); PHOSPHORUS 2.7 MG/DL (2.5-4.9); POTASSIUM 4.1 MMOL/L (3.5-5.1); SODIUM 139 MMOL/L (136-145); TOTAL PROTEIN 6.2 G/DL (6.4-8.2)
[2017-06-23 08:00] VITALS: BP 115/68
[2017-06-23] MEDS: Vitamin A&D Oint 2oz Tube TOPIC SCH (08:27)
[2017-06-23] MEDS: Heparin 5000 units/ml inj SUBQ SCH (08:29)
[2017-06-23] MEDS: Losartan 25mg tab ORAL SCH (08:30)
[2017-06-23 12:00] VITALS: BP 120/74
--- NOTE | 2017-06-23 12:22 | Infectious Diseases Prog Note ---
Assessment/Plan Assessment/Plan ASSESSMENT: The patient is a 81-year-old female with, Community-acquired pneumonia - SCx NRF ; s/p Rx -CXR 06/16: No acute disease -CXR 06/13: Likely developing left-sided pleural effusion and basilar parenchymal disease. Right paratracheal prominence, mass not excludable. Consider CT for better characterization if clinically indicated - CXR 06/10: The lungs and pleural spaces are clear. CONS bacteremia 1/4, m/l contaminant - repeat BCx Neg - TTE neg veg Leukocytosis - mild recurrent; resolved ( on steroids taper) History of sleep apnea requiring BiPAP. History of breast cancer status post lumpectomy. History of overactive bladder. History of osteoarthritis. Spinal stenosis. Parkinson disease NKDA Full Code PLAN: - Continue to monitor off abx ( 06/14 SP Levaquin #5) ( 06/11 SP vancomycin d# 3 ) ( 06/10 SP cefepime d# 2 ) taper steroids per primary Monitor CBC, temperatures; Monitor BMP. Monitor chest x-ray Stable for discharge from ID stand point Subjective Allergies: Coded Allergies: No Known Allergies (Unverified , 01/11/14) Subjective afebrile off abx leukocytosis resolved Objective Vital Signs Last 24 Hour Vital Signs Date Time Temp Pulse Resp B/P (MAP) Pulse Ox O2 Delivery O2 Flow Rate FiO2 06/23/17 10:15 Room Air 06/23/17 08:30 115/68 06/23/17 08:30 82 115/68 06/23/17 08:22 96 Room Air 06/23/17 08:00 98.3 82 18 115/68 93 Room Air 06/23/17 08:00 98.3 82 20 115/68 93 06/23/17 04:00 Room Air 06/23/17 00:00 97.0 73 20 132/61 95 Room Air 06/23/17 00:00 Room Air 06/22/17 20:00 Room Air 06/22/17 20:00 97.5 76 20 135/56 95 Room Air 06/22/17 19:00 Room Air 06/22/17 19:00 94 Room Air 06/22/17 16:32 96 Room Air 06/22/17 16:00 98.2 89 18 125/77 96 06/22/17 12:35 96 Room Air Height (Feet): 5 Height (Inches): 0.00 Weight (Pounds): 276 Objective General Appearance: no acute distress, other - awake, alert, responsive female in NAD HEENT: normocephalic, atraumatic, anicteric Respiratory/Chest: CTA x2 Cardiovascular: normal peripheral pulses, SR on tele Abdomen: normal bowel sounds, soft, non tender Extremities: no edema, pedal pulses normal Neurologic/Psychiatric: abnormal gait - with walker , alert, responsive, normal mood/affect Musculoskeletal: atrophy - BLE Laboratory Tests Test 06/23/17 04:50 White Blood Count 10.1 K/UL (4.8-10.8) Red Blood Count 4.79 M/UL (4.20-5.40) Hemoglobin 14.5 G/DL (12.0-16.0) Hematocrit 44.3 % (37.0-47.0) Mean Corpuscular Volume 93 FL (80-99) Mean Corpuscular Hemoglobin 30.3 PG (27.0-31.0) Mean Corpuscular Hemoglobin Concent 32.8 G/DL (32.0-36.0) Red Cell Distribution Width 12.6 % (11.6-14.8) Platelet Count 173 K/UL (150-450) Mean Platelet Volume 5.8 FL (6.5-10.1) L Neutrophils (%) (Auto) 57.6 % (45.0-75.0) Lymphocytes (%) (Auto) 32.3 % (20.0-45.0) Monocytes (%) (Auto) 6.8 % (1.0-10.0) Eosinophils (%) (Auto) 2.2 % (0.0-3.0) Basophils (%) (Auto) 1.1 % (0.0-2.0) Sodium Level 139 MMOL/L (136-145) Potassium Level 4.1 MMOL/L (3.5-5.1) Chloride Level 108 MMOL/L (98-107) H Carbon Dioxide Level 22 MMOL/L (21-32) Anion Gap 10 mmol/L (5-15) Blood Urea Nitrogen 23 mg/dL (7-18) H Creatinine 0.8 MG/DL (0.55-1.30) Estimat Glomerular Filtration Rate mL/min (>60) Glucose Level 102 MG/DL (74-106) Calcium Level 8.7 MG/DL (8.5-10.1) Phosphorus Level 2.7 MG/DL (2.5-4.9) Magnesium Level 2.0 MG/DL (1.8-2.4) Total Bilirubin 0.8 MG/DL (0.2-1.0) Aspartate Amino Transf (AST/SGOT) 13 U/L (15-37) L Alanine Aminotransferase (ALT/SGPT) 6 U/L (12-78) L Alkaline Phosphatase 55 U/L (46-116) Total Protein 6.2 G/DL (6.4-8.2) L Albumin 3.0 G/DL (3.4-5.0) L Globulin 3.2 g/dL Albumin/Globulin Ratio 0.9 (1.0-2.7) L Current Medications Medications (Trade) Dose Ordered Sig/Roro Route PRN Reason Start Time Stop Time Status Last Admin Dose Admin Acetaminophen (Tylenol) 650 mg Q4H PRN ORAL T>100.5 06/18/17 21:00 07/08/17 20:59 Al Hydroxide/Mg Hydroxide (Mylanta II) 30 ml Q6H PRN ORAL dyspepsia 06/18/17 21:00 07/08/17 20:59 Amlodipine Besylate (Norvasc) 5 mg DAILY ORAL 06/19/17 09:00 07/19/17 08:59 06/19/17 09:45 Carbidopa/Levodopa (Sinemet 25/100) 1 ea EVERY 8 HOURS ORAL 06/18/17 22:00 07/09/17 08:59 06/23/17 06:21 Heparin Sodium (Porcine) (Heparin 5000 units/ml) 5,000 units EVERY 12 HOURS SUBQ 06/18/17 21:00 07/09/17 08:59 06/22/17 21:19 Losartan Potassium (Cozaar) 25 mg DAILY ORAL 06/19/17 09:00 07/13/17 08:59 06/19/17 09:45 Nitroglycerin (Ntg) 0.4 mg Q5MIN X 3 DOSES PRN SL Prn Chest Pain 06/18/17 21:00 07/08/17 20:59 Ondansetron HCl (Zofran) 4 mg Q6H PRN IVP Nausea & Vomiting 06/18/17 21:00 07/18/17 20:59 Polyethylene Glycol (Miralax) 17 gm DAILYPRN PRN ORAL Constipation 06/18/17 21:00 07/18/17 20:59 Promethazine HCl/ Codeine (Phenergan with Codeine) 5 ml Q4H PRN ORAL For Cough 06/18/17 21:00 07/08/17 20:59 Vitamin A/Vitamin D (A & D Oint) 1 applic EVERY 12 HOURS TOPIC 06/18/17 21:00 07/16/17 20:59 06/23/17 08:27 Carol Ann Ellis M.D. Jun 23, 2017 12:22
[2017-06-23 16:00] VITALS: BP 120/80
--- NOTE | 2017-06-23 19:01 | Pulmonology Progress Note ---
Assessment/Plan Problems: (1) Acute respiratory failure (2) Purulent bronchitis (3) At high risk for aspiration (4) Pneumonia (5) Peripheral edema (6) Parkinson disease Assessment/Plan improving doing pt/ot no new complains on room air now, saturating well feeling much better dc planning home now Subjective ROS Limited/Unobtainable: No Constitutional: Reports: no symptoms HEENT: Repors: no symptoms Respiratory: Reports: no symptoms Allergies: Coded Allergies: No Known Allergies (Unverified , 01/11/14) Objective Last 24 Hour Vital Signs Date Time Temp Pulse Resp B/P (MAP) Pulse Ox O2 Delivery O2 Flow Rate FiO2 06/23/17 16:00 97.6 101 21 120/80 96 Room Air 06/23/17 12:00 99.3 91 20 120/74 96 06/23/17 10:15 Room Air 06/23/17 08:30 115/68 06/23/17 08:30 82 115/68 06/23/17 08:22 96 Room Air 06/23/17 08:00 98.3 82 18 115/68 93 Room Air 06/23/17 08:00 98.3 82 20 115/68 93 06/23/17 04:00 Room Air 06/23/17 00:00 97.0 73 20 132/61 95 Room Air 06/23/17 00:00 Room Air 06/22/17 20:00 Room Air 06/22/17 20:00 97.5 76 20 135/56 95 Room Air Objective General Appearance: WD/WN HEENT: normocephalic, anicteric Cardiovascular: normal peripheral pulses, normal rate Abdomen: normal bowel sounds, no organomegaly Genitourinary: normal external genitalia Extremities: no clubbing Skin: no lesions Lymphatic: no neck adenopathy Laboratory Tests 06/23/17 04:50: White Blood Count 10.1, Red Blood Count 4.79, Hemoglobin 14.5, Hematocrit 44.3, Mean Corpuscular Volume 93, Mean Corpuscular Hemoglobin 30.3, Mean Corpuscular Hemoglobin Concent 32.8, Red Cell Distribution Width 12.6, Platelet Count 173, Mean Platelet Volume 5.8L, Neutrophils (%) (Auto) 57.6, Lymphocytes (%) (Auto) 32.3, Monocytes (%) (Auto) 6.8, Eosinophils (%) (Auto) 2.2, Basophils (%) (Auto ) 1.1, Sodium Level 139, Potassium Level 4.1, Chloride Level 108H, Carbon Dioxide Level 22, Anion Gap 10, Blood Urea Nitrogen 23H, Creatinine 0.8, Estimat Glomerular Filtration Rate , Glucose Level 102, Calcium Level 8.7, Phosphorus Level 2.7, Magnesium Level 2.0, Total Bilirubin 0.8, Aspartate Amino Transf (AST/SGOT) 13L, Alanine Aminotransferase (ALT/SGPT) 6L, Alkaline Phosphatase 55, Total Protein 6.2L, Albumin 3.0L, Globulin 3.2, Albumin/ Globulin Ratio 0.9L KERRI YIN Jun 23, 2017 19:01
--- NOTE | 2017-06-23 23:03 | General Progress Note ---
Assessment/Plan Status: stable, progressing Assessment/Plan mdd cont current meds Subjective Date patient seen: Jun 23, 2017 Neurologic/Psychiatric: Reports: anxiety, depressed, emotional problems Allergies: Coded Allergies: No Known Allergies (Unverified , 01/11/14) Objective Last 24 Hour Vital Signs Date Time Temp Pulse Resp B/P (MAP) Pulse Ox O2 Delivery O2 Flow Rate FiO2 06/23/17 16:00 97.6 101 21 120/80 96 Room Air 06/23/17 12:00 99.3 91 20 120/74 96 06/23/17 10:15 Room Air 06/23/17 08:30 115/68 06/23/17 08:30 82 115/68 06/23/17 08:22 96 Room Air 06/23/17 08:00 98.3 82 18 115/68 93 Room Air 06/23/17 08:00 98.3 82 20 115/68 93 06/23/17 04:00 Room Air 06/23/17 00:00 97.0 73 20 132/61 95 Room Air 06/23/17 00:00 Room Air Laboratory Tests 06/23/17 04:50: White Blood Count 10.1, Red Blood Count 4.79, Hemoglobin 14.5, Hematocrit 44.3, Mean Corpuscular Volume 93, Mean Corpuscular Hemoglobin 30.3, Mean Corpuscular Hemoglobin Concent 32.8, Red Cell Distribution Width 12.6, Platelet Count 173, Mean Platelet Volume 5.8L, Neutrophils (%) (Auto) 57.6, Lymphocytes (%) (Auto) 32.3, Monocytes (%) (Auto) 6.8, Eosinophils (%) (Auto) 2.2, Basophils (%) (Auto ) 1.1, Sodium Level 139, Potassium Level 4.1, Chloride Level 108H, Carbon Dioxide Level 22, Anion Gap 10, Blood Urea Nitrogen 23H, Creatinine 0.8, Estimat Glomerular Filtration Rate , Glucose Level 102, Calcium Level 8.7, Phosphorus Level 2.7, Magnesium Level 2.0, Total Bilirubin 0.8, Aspartate Amino Transf (AST/SGOT) 13L, Alanine Aminotransferase (ALT/SGPT) 6L, Alkaline Phosphatase 55, Total Protein 6.2L, Albumin 3.0L, Globulin 3.2, Albumin/ Globulin Ratio 0.9L Height (Feet): 5 Height (Inches): 0.00 Weight (Pounds): 276 General Appearance: no apparent distress, alert Neurologic: alert, oriented x 3, responsive Kelsie Walsh M.D. Jun 23, 2017 23:03
--- NOTE | 2017-06-26 15:16 | Discharge Summary ---
Discharge Summary Hospital Course Date of Admission Jun 08, 2017 at 19:49 Date of Discharge Jun 23, 2017 at 17:20 Admitting Diagnosis Respiratory distress HPI Kayleigh Ortega is a 81 year old female who was admitted on Jun 08, 2017 at 19:49 for Respiratory Distress Hospital Course [id number] Discharge Discharge Disposition Patient was discharged to Home (01) Discharge Diagnoses: Kasey Jauregui NP Jun 26, 2017 15:16
--- NOTE | 2017-06-27 02:30 | Discharge Summary 2 SIG ---
DATE OF ADMISSION: 06/08/2017 DATE OF DISCHARGE: 06/23/2017 CONSULTANTS: 1. Kumar Díaz M.D. 2. Carol Ann Ellis M.D. BRIEF HOSPITAL COURSE: The patient is a 81-year-old female with history of Parkinson disease, peripheral edema and almost bedbound, who came from home was brought in by EMS for complaints of cough and shortness of breath for two days. She also had subjective fever and chills. She had progressive shortness of breath, which occurs both at rest and on exertion. She had a swallow evaluation done a month ago at [facility], which was reportedly normal. On evaluation at ED, the patient was in respiratory failure and required BiPAP. Upon arrival, she was tachypneic with labored breathing. Blood work showed leukocytosis. WBC was 12.4. BNP was 268. Troponin was negative. Chest x-ray done showed cardiomegaly with infiltrate versus pulmonary vascular congestion. EKG was in normal sinus rhythm with T-wave flattening in V2 and V3. She was admitted to [facility] for respiratory failure, bronchitis, and pneumonia. She was placed on respiratory treatment and O2 support. She was initially started on cefepime and vancomycin for possible community-acquired pneumonia. She was given Solu-Medrol and was continued on Sinemet. She underwent cardiac evaluation with Dr. Díaz. Review from records revealed that the patient was seen by Dr. Yip on 04/06/2017. Clinical symptoms as well as presentation and findings are not in line with congestive heart failure. Cardiac enzymes were monitored and was negative. Echocardiogram done showed ejection fraction of 60% with normal wall motion and mild aortic stenosis. Venous duplex was negative. She was eventually tapered off of BiPAP support. Steroid was tapered to prednisone. Sputum culture showed growth of normal respiratory rupali and blood culture with coagulase-negative Staph 1/4 most likely contaminant. She received 5 days of IV Levaquin and was observed off antibiotic treatment. Surveillance blood culture did not isolate any growth. She had an episode of tachycardia. EKG was reviewed and there was no significant SVT, ventricular tachycardia, and atrial fibrillation. Rhythm was sinus. She continued to have elevated blood pressure and Norvasc was increased to 7.5 mg daily. She was diagnosed with major depressive disorder. She was given physical and occupational therapy. She came in with a stage II pressure ulcer on left buttock and left ischial tuberosity. Wound care was rendered. She was recommended a transfer to SNF to continue rehabilitation however there was no authorization from the insurance. The patient was eventually discharged home. The patient was instructed to contact [facility] for home delivery of oxygen concentrator. FINAL DIAGNOSES: 1. Acute respiratory failure, resolved. 2. Acute bronchitis. 3. Community-acquired pneumonia. 4. High risk for aspiration. 5. Parkinson disease. 6. Sleep apnea. 7. Breast cancer status post lumpectomy. 8. Overactive bladder. 9. Osteoarthritis. 10. Spinal stenosis. 11. Major depressive disorder. 12. Stage II pressure ulcer on the left buttock and left ischial tuberosity, present on admission. DISPOSITION: The patient was discharged home. DISCHARGE MEDICATIONS: Refer to medication list. FOLLOWUP: Followup with PMD in a week. Blake Ortega M.D. I have been assigned to dictate discharge summary on this account and I was not involved in the patient's management. Kasey Jauregui N.P. DR: MCKENNA JOB#: [id number] CC: WILLI
== END 2017-06-23 17:20 | disposition home or self-care (01) | DRG 193 ==
LOC: EDBD 17:28 → EMR 17:50 → EDBEDREQ 19:33 → 2W 19:49 → EDBEDREQ 20:04 → 4E 06-16 11:20 → 2E 06-16 20:54 → 4E 06-18 20:33
DX: J18.9 Pneumonia, unspecified organism (principal); J96.00 Acute respiratory failure, unspecified whether with hypoxia or hypercapnia; L89.322 Pressure ulcer of left buttock, stage 2; Z68.43 Body mass index [BMI] 50.0-59.9, adult; J90 Pleural effusion, not elsewhere classified; I27.20 Pulmonary hypertension, unspecified; G20 Parkinson's disease; E66.01 Morbid (severe) obesity due to excess calories; I35.0 Nonrheumatic aortic (valve) stenosis; J20.9 Acute bronchitis, unspecified; I10 Essential (primary) hypertension; Z85.3 Personal history of malignant neoplasm of breast; M48.00 Spinal stenosis, site unspecified; Z74.01 Bed confinement status; F41.9 Anxiety disorder, unspecified; D72.829 Elevated white blood cell count, unspecified
CPT/HCPCS: 36415; 36600; 71010; 74230; 80048; 80053; 80069; 81003; 82803; 83605; 83735; 83880; 84100; 84484; 85007; 85025; 85651; 86140; 87040; 87070; 87081; 87181; 87205; 93005; 93306; 93970; 94640; 94660; 94664; 94760; 99285; J7620

== ENCOUNTER 2018-02-11 21:41 | Inpatient (IN) | payer BC ==
[~2018-02-11] VITALS: Ht 167.6 cm; Wt 121.1 kg
[~2018-02-11 21:41] MED LIST changes: +AZELASTINE137 MCG/0. NS; +ESTRING1 EACH; +FLONASE ALLERG9.9 ML NS; +LOSARTAN POTASS25 MG ORAL; +NORVASC5 MG ORAL; +SENSIPAR30 MG; +SINEMET 25-1001 EAC1 ORAL; +TOVIAZ8 MG; +VITAMIN D-32000 UNI1 PO
[2018-02-11] MEDS ORDERED: Cefepime HCl 1 GM in NS 55 ML IV SCH (21:45)
--- NOTE | 2018-02-11 21:59 | Emergency Room Report ---
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 She has issue with esophageal dysmotility. 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 Per her son, she had a small stent placed at [facility] on the last admission. She presents with respiratory distress. Onset tonight. Unable to get any other history from patient because of her condition. She is bed bound. Multiple admissions in the past. Is no reported fever or chills. Her EMS she was very hypoxic and respiratory distress. I place her on CPAP and brought her here. Unable to get any other history. Allergies: Coded Allergies: No Known Allergies (Unverified , 01/11/14) Patient History Past Medical History: see triage record, old chart reviewed Past Surgical History: other Pertinent Family History: none Social History: Denies: smoking Now: No Immunizations: other Reviewed Nursing Documentation: PMH: Agreed; PSxH: Agreed Nursing Documentation-PMH Hx Cardiac Problems: No Hx Cancer: No Hx Gastrointestinal Problems: No Hx Neurological Problems: Yes - spinal stenosis Hx Parkinson's Disease: Yes Review of Systems Eye: Denies: eye pain, blurred vision ENT: Denies: ear pain, nose congestion, throat swelling Respiratory: Reports: shortness of breath Cardiovascular: Denies: chest pain, palpitations Gastrointestinal: Denies: abdominal pain, diarrhea, nausea, vomiting Musculoskeletal: Denies: back pain, joint pain Skin: Denies: rash Neurological: Denies: headache, numbness Endocrine: Denies: increased thirst, increased urine Hematologic/Lymphatic: Denies: easy bruising All Other Systems: negative except mentioned in HPI Physical Exam Vital Signs Date Time Temp Pulse Resp B/P (MAP) Pulse Ox O2 Delivery O2 Flow Rate FiO2 02/11/18 21:44 104.2 92 35 143/104 98 Bi-pap 100 104.2 vitals with fever Sp02 EP Interpretation: abnormal General Appearance: severe distress, Stupor Head: normocephalic, atraumatic Eyes: bilateral eye PERRL, bilateral eye EOMI ENT: hearing grossly normal, normal pharynx Neck: full range of motion, supple, no meningismus Respiratory: chest non-tender, respiratory distress, decreased breath sounds, accessory muscle use, crackles, rhonchi Cardiovascular #1: regular rate, rhythm, no murmur Gastrointestinal: normal bowel sounds, non tender, no mass, no organomegaly, no bruit, non-distended Musculoskeletal: back normal, normal range of motion Skin: warm/dry Procedures Critical Care Time Critical Care Time Critical care is mandated in this patient who presented with sepsis secondary to pneumonia. Patient require my urgent intervention to attenuate the risks of metabolic collapse which may lead to cardiovascular collapse and . Critical care time is 35 minutes excluding any reportable procedure. Critical care time included evaluation, multiple reevaluation, looking at old charts, interpreting laboratory and diagnostic data, discussing case with patient and family and consultants, and charting. Intubation Intubation : Consent: Verbal Intubation Method: orotracheal Tube Size (cm): 7.5 Medications: Etomidate, Succinylcholine Breath Sounds after Intubation: equal Intubation Complications: no complications Post Intubation Xray: Yes Progress/Xray Impression: ETT just above jennifer. white out of left lung Attempts: One Patient Tolerated: Well Complications: None Medical Decision Making Diagnostic Impression: Primary Impression: Acute respiratory failure Qualified Codes: J96.01 - Acute respiratory failure with hypoxia; J96.02 - Acute respiratory failure with hypercapnia Additional Impressions: Respiratory failure requiring intubation Sepsis Qualified Codes: A41.9 - Sepsis, unspecified organism Healthcare associated bacterial pneumonia Aspiration pneumonia Qualified Codes: J69.0 - Pneumonitis due to inhalation of food and vomit UTI (urinary tract infection) Qualified Codes: N30.00 - Acute cystitis without hematuria Morbid obesity with BMI of 50.0-59.9, adult Proteinuria Qualified Codes: R80.9 - Proteinuria, unspecified ER Course She presents with acute on chronic respiratory failure. This probably secondary to aspiration pneumonia. She was placed on BiPAP and responded initially but worsen. Repeat blood gas showed worsening pH and increasing CO2. Because of this I elected to intubate the patient for airway protection. Repeat chest x-ray showed white out of left lung. This may be secondary to worsening pneumonia or mucous plugging. I increased the PEEP on the ventilator. Prognosis poor. She may benefit from tracheostomy to prevent or decrease respiratory issue in the future. Because her primary care doctor is Dr. Gardner, I discussed the case with who agreed to admit the patient. EKG Diagnostic Results Rate: normal Rhythm: NSR ST Segments: other - NSST changes Rhythm Strip Diag. Results Rhythm Strip Time: 22:06 EP Interpretation: yes Rate: 100 Rhythm: NSR, no PVC's, no ectopy Chest X-Ray Diagnostic Results Chest X-Ray Diagnostic Results #1: Chest X-Ray Ordered: Yes # of Views/Limited/Complete: 1 View Indication: Shortness of Breath EP Interpretation: Yes Interpretation: no effusion, no pneumothorax, other - Bilateral lower infiltrates Impression: Other - b/l lower lobe infiltrates Electronically Signed by: Myles Mike MD Chest X-Ray Diagnostic Results #2: Chest X-Ray Ordered: Yes # of Views/Limited/Complete: 1 View Indication: Shortness of Breath EP Interpretation: Yes Interpretation: no pneumothorax, other - post intubation. ETT above jennifer. complete opacification of left lung. Impression: Other - s/p intubation. opacification of left lung Electronically Signed by: Myles Mike MD Last Vital Signs Date Time Temp Pulse Resp B/P (MAP) Pulse Ox O2 Delivery O2 Flow Rate FiO2 02/11/18 21:44 104.2 92 35 143/104 98 Bi-pap 100 104.2 Status: unchanged Disposition: ADMITTED INPATIENT Condition: Critical MYLES MIKE M.D. Feb 11, 2018 21:59
[2018-02-11 22:07] VITALS: BP 173/78
[2018-02-11] MEDS ORDERED: ZINC SULFATE220 M1 ORAL (22:13)
[2018-02-11 22:14] LABS: HEMATOCRIT 37.8 % (37.0-47.0); HEMOGLOBIN 12.1 G/DL (12.0-16.0); MEAN CORPUSCULAR VOLUME 86 FL (80-99); PLATELET COUNT 354 K/UL (150-450); RED BLOOD COUNT 4.42 M/UL (4.20-5.40); RED CELL DISTRIBUTION WIDTH 14.1 % (11.6-14.8)
[2018-02-11] MEDS ORDERED: VITAMIN C500 M1 ORAL (22:14)
[2018-02-11] MEDS ORDERED: PROTONIX40 MG ORAL (22:14)
[2018-02-11] MEDS ORDERED: Acetaminophen 500mg (ES) tab ORAL ONE (22:15)
[2018-02-11] MEDS ORDERED: Albuterol ud Inhalation HHN ONE (22:15)
[2018-02-11] MEDS ORDERED: Ipratropium 0.02% Inh Soln 2.5ml UD HHN ONE (22:15)
[2018-02-11 22:18] LABS: WHITE BLOOD COUNT 23.2 K/UL (4.8-10.8)
[2018-02-11 22:22] LABS: ANION GAP 8 mmol/L (5-15); BLOOD UREA NITROGEN 17 mg/dL (7-18); CALCIUM 9.8 MG/DL (8.5-10.1); CARBON DIOXIDE 27 MMOL/L (21-32); CHLORIDE 101 MMOL/L (98-107); SODIUM 136 MMOL/L (136-145)
[2018-02-11 22:26] LABS: INR 1.1 (0.9-1.1)
[2018-02-11 22:37] LABS: ALANINE AMINOTRANSFERASE 10 U/L (12-78); ALBUMIN 3.4 G/DL (3.4-5.0); ALBUMIN/GLOBULIN RATIO 0.7 (1.0-2.7); ALKALINE PHOSPHATASE 106 U/L (46-116); ASPARTATE AMINO TRANSFERASE 23 U/L (15-37); BILIRUBIN,TOTAL 0.4 MG/DL (0.2-1.0); CKMB 0.5 NG/ML (0.0-3.6); CREATINE KINASE 22 U/L (26-308)
[2018-02-11] MEDS ORDERED: Acetaminophen 650 MG SUPP RECTAL ONE (22:45)
[2018-02-11 22:52] LABS: APPEARANCE,URINE CLOUDY; BILIRUBIN, URINE NEGATIVE (NEGATIVE); GLUCOSE, URINE (UA) NEGATIVE (NEGATIVE); KETONES,URINE 1+ (NEGATIVE); LEUKOCYTE ESTERASE ,URINE 1+ (NEGATIVE); NITRITE,URINE POSITIVE (NEGATIVE); PH,URINE 5 (4.5-8.0); PROTEIN,URINE 4+ (NEGATIVE); UROBILINOGEN,URINE NORMAL MG/DL (0.0-1.0)
[2018-02-11 22:55] LABS: COLOR,URINE YELLOW
[2018-02-11 23:01] VITALS: BP 147/88
[2018-02-11 23:39] VITALS: BP 143/75
[2018-02-11 23:53] VITALS: BP 143/75
[2018-02-12] VITALS (25 sets, daily range): BP systolic 93–163; BP diastolic 48–86
[2018-02-12] MEDS ORDERED: Succinylcholine 20mg/ml 10ml vial IV ONE (00:15)
[2018-02-12] MEDS ORDERED: Etomidate 40mg/20ml Inj IV ONE ×2 (00:15→09:41)
[2018-02-12] MEDS ORDERED: Albuterol ud Inhalation HHN ONE (00:30)
[2018-02-12] MEDS ORDERED: Vancomycin 2gm/D5W 550ml IVPB SCH ×2 (04:00)
[2018-02-12] MEDS ORDERED: Cefepime HCl 1 GM in D5W 55 ML IVPB SCH (06:00)
--- NOTE | 2018-02-12 08:43 | Diagnostic Imaging Report ---
Indication: Shortness of breath Technique: One view of the chest Comparison: One hour earlier Findings: Stable satisfactory position of endotracheal tube, tip approximately 7 cm above the jennifer. Tracheal versus esophageal stent is again demonstrated. Extensive consolidation of the left lung persists. Right paratracheal mass persists. Findings are overall unchanged Impression: Unchanged, over one hour, findings as above.
--- NOTE | 2018-02-12 09:32 | History & Physical ---
History and Physical History & Physicial dict resp failure pneum/sepsis [facility] PD see orders Gómez Matos MD Feb 12, 2018 09:32
[2018-02-12] MEDS ORDERED: Succinylcholine 20mg/ml 10ml vial ONE (09:41)
[2018-02-12] MEDS ORDERED: Cefepime 2gm/D5W 110ml IV SCH ×2 (10:00)
[2018-02-12] MEDS ORDERED: Cefepime 1gm/D5W 55ml IVPB SCH ×2 (10:30)
--- NOTE | 2018-02-12 10:46 | Diagnostic Imaging Report ---
Indication: Shortness of breath Technique: One view of the chest Comparison: 06/16/2017 Findings: Interim placement of a metallic stent in what is presumably the upper esophagus. Opacity at the left lung base may reflect a pleural effusion. There is interstitial congestion. The heart size is upper limits of normal Impression: Interstitial congestion and likely left pleural effusion
[2018-02-12] MEDS: Albuterol/Ipratropium 3ml neb HHN SCH ×4 (11:00→23:20)
[2018-02-12 11:18] LABS: HEMOGLOBIN 10.4 G/DL (12.0-16.0); MEAN CORPUSCULAR VOLUME 86 FL (80-99); PLATELET COUNT 256 K/UL (150-450); RED BLOOD COUNT 3.95 M/UL (4.20-5.40)
[2018-02-12 11:21] LABS: ANION GAP 9 mmol/L (5-15); BLOOD UREA NITROGEN 14 mg/dL (7-18); CALCIUM 8.1 MG/DL (8.5-10.1); CARBON DIOXIDE 23 MMOL/L (21-32); CHLORIDE 109 MMOL/L (98-107); CREATININE 0.8 MG/DL (0.55-1.30); SODIUM 140 MMOL/L (136-145)
[2018-02-12 11:25] LABS: ALANINE AMINOTRANSFERASE 30 U/L (12-78); ALBUMIN 2.4 G/DL (3.4-5.0); ALBUMIN/GLOBULIN RATIO 0.6 (1.0-2.7); ALKALINE PHOSPHATASE 95 U/L (46-116); ASPARTATE AMINO TRANSFERASE 44 U/L (15-37); BILIRUBIN,TOTAL 0.4 MG/DL (0.2-1.0)
[2018-02-12] MEDS: D5NS 1,000 ML IV SCH (11:40)
[2018-02-12] MEDS: NovoLOG Insulin Flexpen SUBQ SCH ×2 (11:52→17:44)
--- NOTE | 2018-02-12 12:35 | Diagnostic Imaging Report ---
Indication: Shortness of breath Technique: One view of the chest Comparison: 2 hours earlier Findings: Interim endotracheal intubation, endotracheal tube tip projecting in good position and approximately 5 cm above the jennifer. Esophageal stent again demonstrated. There is interim development of extensive dense consolidation of the left mid and upper lung, and increasing less dense consolidation of the left lower lung. The right lung demonstrates mild generalized interstitial prominence with central bronchial wall thickening, possibly chronic. Impression: Satisfactory endotracheal intubation, since prior exam of 2 hours earlier Rapidly progressive left upper lobe infiltrate
--- NOTE | 2018-02-12 12:45 | History and Physical Report ---
DATE OF ADMISSION: 02/11/2018 HISTORY OF PRESENT ILLNESS: The patient is an 82-year-old female, transferred from a nearby alf because of respiratory distress. She was placed on BiPAP initially, but her condition declined with severe respiratory acidosis and she was intubated and transferred to intensive care unit. I came to see her this morning and she is alert. She cannot provide any additional history due to intubation, but the records are reviewed. PAST MEDICAL HISTORY: The patient has been hospitalized recently at [facility] with respiratory failure and has been intubated for this. She has history of Parkinson's disease with esophageal dysmotility and tortuous esophagus in addition. 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 She was discharged on BiPAP at night, but she has been refusing to use it. 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 ALLERGIES: None. MEDICATIONS: Reviewed and reconciled. REVIEW OF SYSTEMS: Cannot be obtained. PHYSICAL EXAMINATION: GENERAL: The patient is alert and appears morbidly obese. VITAL SIGNS: Showed blood pressure is satisfactory, she is on a ventilator, the heart rate is 102 in sinus tachycardia, respirations are 15, saturation is 100% on 40% oxygen with PEEP of 10. HEENT: The head is normocephalic. The mouth has an orotracheal tube in place on ventilator support. NECK: No jugular venous distention. CHEST: Decreased breath sounds on the left side. CARDIAC: Rhythm is regular. Tachycardia. ABDOMEN: Soft and nontender. Liver and spleen not enlarged. EXTREMITIES: No clubbing, cyanosis, or edema. LABORATORY AND DIAGNOSTIC DATA: Laboratory studies showed the white count is 23,000, hemoglobin is 12.1, and platelets are normal. There is a left shift. Blood gas showed the pH was down to 6.9 with pCO2 of 128. Following intubation, the pCO2 improved to 49. There was also metabolic acidosis noted. Chemistry shows blood sugar elevated to 192 without a history of diabetes. Electrolytes are normal. Total protein is elevated. Urinalysis shows many red cells and 10 to 15 white cells. IMPRESSION: 1. Acute respiratory failure. 2. Extensive pneumonia, left lung. 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 5. Parkinson's disease. 6. Esophageal dysmotility. 7. Morbid obesity with obesity hypoventilation syndrome. 8. Hypertension. Currently normotensive. 9. Nephrolithiasis and renal mass. 10. History of breast cancer. PLAN: The patient has been cultured and antibiotics administered. We will give fluids and start tube feedings and respiratory treatments. I have called the son and left a message. The prognosis is guarded. Gómez Matos M.D. DR: JAMEE JOB#: [id number] CC: Gómez Matos M.D.; Fax#: [phone]
[2018-02-12] MEDS: Levodopa/Carbidopa 25/100 tab ORAL SCH ×2 (14:03→17:47)
[2018-02-12] MEDS: Piperacillin/Tazobactam 3.375 GM in D5W 110 ML IVPB SCH ×2 (14:03→21:40)
--- NOTE | 2018-02-12 16:54 | Cardiology Report ---
APPROVED REPORT EKG Measurement Heart [id number] Normal sinus rhythm Nonspecific ST and T wave abnormality Abnormal ECG
[2018-02-12] MEDS: Vancomycin 750mg/NS 250ml IVPB SCH (17:47)
[2018-02-13] VITALS (24 sets, daily range): BP systolic 96–159; BP diastolic 56–98
[2018-02-13] MEDS: D5NS 1,000 ML IV SCH ×2 (00:30→14:14)
[2018-02-13] MEDS: Albuterol/Ipratropium 3ml neb HHN SCH ×6 (03:02→22:36)
[2018-02-13] MEDS: Vancomycin 750mg/NS 250ml IVPB SCH (05:32)
[2018-02-13] MEDS: NovoLOG Insulin Flexpen SUBQ SCH ×3 (05:33→17:55)
[2018-02-13 05:34] LABS: BASOPHILS % (AUTO) 0.4 % (0.0-2.0); HEMATOCRIT 30.9 % (37.0-47.0); HEMOGLOBIN 9.5 G/DL (12.0-16.0); LYMPHOCYTES % (AUTO) 9.2 % (20.0-45.0); MEAN CORPUSCULAR VOLUME 86 FL (80-99); MONOCYTES % (AUTO) 4.7 % (1.0-10.0); NEUTROPHILS % (AUTO) 84.7 % (45.0-75.0); PLATELET COUNT 229 K/UL (150-450); WHITE BLOOD COUNT 13.2 K/UL (4.8-10.8)
[2018-02-13] MEDS: Piperacillin/Tazobactam 3.375 GM in D5W 110 ML IVPB SCH ×3 (05:51→21:58)
[2018-02-13 06:06] LABS: ALANINE AMINOTRANSFERASE 13 U/L (12-78); ALBUMIN 2.3 G/DL (3.4-5.0); ALBUMIN/GLOBULIN RATIO 0.6 (1.0-2.7); ALKALINE PHOSPHATASE 86 U/L (46-116); ANION GAP 11 mmol/L (5-15); ASPARTATE AMINO TRANSFERASE 31 U/L (15-37); BILIRUBIN,TOTAL 0.4 MG/DL (0.2-1.0); BLOOD UREA NITROGEN 9 mg/dL (7-18); CARBON DIOXIDE 22 MMOL/L (21-32); CHLORIDE 109 MMOL/L (98-107); CREATININE 0.7 MG/DL (0.55-1.30); POTASSIUM 3.4 MMOL/L (3.5-5.1); SODIUM 142 MMOL/L (136-145)
--- NOTE | 2018-02-13 06:48 | Pulmonolgy Critical Care Note ---
Critical Care - Asmt/Plan Assessment/Plan: 1. Acute respiratory failure. 2. Extensive pneumonia, left lung. 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 5. Parkinson's disease. 6. Esophageal dysmotility. 7. Morbid obesity with obesity hypoventilation syndrome. 8. Hypertension. Currently normotensive. 9. Nephrolithiasis and renal mass. 10. History of breast cancer. 11. GN UTI PLAN fu cultures labs in am, replace lytes hold weaning today cxr in am pressors for MAP less than 65 mmhg nebs wound care Nutrition prognosis guarded, continue ICU 35 min of CCT spent with pt, reviewing chart discussing plan with nursing. 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 Critical Care - Objective Last 24 Hour Vital Signs Date Time Temp Pulse Resp B/P (MAP) Pulse Ox O2 Delivery O2 Flow Rate FiO2 02/13/18 06:00 111 25 137/81 (99) 100 02/13/18 05:00 103 20 123/77 (92) 100 02/13/18 04:49 111 25 40 02/13/18 04:00 114 02/13/18 04:00 Mechanical Ventilator 02/13/18 04:00 97.8 113 25 135/86 (102) 100 97.8 02/13/18 04:00 40 02/13/18 03:11 117 26 100 Mechanical Ventilator 40 02/13/18 03:04 112 26 92 Mechanical Ventilator 40 02/13/18 03:02 112 28 40 02/13/18 03:00 114 26 116/80 (92) 100 02/13/18 02:00 112 26 138/84 (102) 100 02/13/18 01:20 111 23 40 02/13/18 01:00 110 26 141/89 (106) 100 02/13/18 00:00 40 02/13/18 00:00 109 02/13/18 00:00 98.4 111 26 154/89 (110) 100 98.4 02/13/18 00:00 Mechanical Ventilator 02/12/18 23:27 112 26 100 Mechanical Ventilator 40 02/12/18 23:20 109 24 40 7/20/18 23:20 113 26 92 Mechanical Ventilator 40 7/20/18 23:00 111 26 152/79 (103) 100 7/20/18 22:00 109 26 163/58 (93) 100 7/20/18 21:13 109 24 40 7/20/18 21:00 108 25 124/68 (86) 100 7/20/18 20:00 40 7/20/18 20:00 98.3 106 24 118/70 (86) 100 98.3 7/20/18 20:00 108 7/20/18 20:00 Mechanical Ventilator 720/18 19:25 108 26 100 Mechanical Ventilator 40 7/20/18 19:12 108 26 99 Mechanical Ventilator 40 7/20/18 19:00 109 26 40 7/20/18 19:00 106 24 124/68 (86) 100 7/20/18 18:00 108 26 124/68 (86) 99 7/20/18 17:26 108 24 40 7/20/18 17:00 107 26 128/62 (84) 99 7/20/18 16:00 98.4 104 24 109/64 (79) 99 98.4 7/20/18 16:00 40 7/20/18 16:00 Mechanical Ventilator 720/18 16:00 107 7/20/18 15:27 89 20 100 Mechanical Ventilator 40 7/20/18 15:19 100 23 99 Mechanical Ventilator 40 7/20/18 15:00 103 25 116/78 (91) 99 7/20/18 14:45 107 26 40 7/20/18 14:00 104 25 125/86 (99) 99 7/20/18 13:14 96 20 40 7/20/18 13:00 101 22 117/75 (89) 99 7/20/18 12:00 40 7/20/18 12:00 98.2 98 20 119/67 (84) 97 98.2 7/20/18 12:00 Mechanical Ventilator 720/18 12:00 104 7/20/18 11:00 105 26 125/75 (92) 98 7/20/18 10:52 102 25 40 7/20/18 10:00 101 15 117/60 (79) 100 7/20/18 09:25 111 28 40 7/20/18 09:00 105 15 107/68 (81) 100 02/12/18 08:00 105 15 107/72 (84) 100 02/12/18 08:00 101 02/12/18 08:00 Mechanical Ventilator 02/12/18 08:00 40 02/12/18 07:00 98.1 101 20 112/61 (78) 96 98.1 Status: awake Lungs: rhonchi - quiet on the lfet Heart: HR/BP stable Abdomen: soft, non-tender Extremities: edema Micro: Microbiology Date/Time Source Procedure Growth Status 02/11/18 22:30 Urine,Clean Catch Urine Culture - Preliminary Gram Negative Bacillus 1 Resulted Accucheck: 151 Blood Sugars: BS not controlled Critical Care - Subjective ROS Limited/Unobtainable: Yes Condition: critical FI02: 40 Vent Support Breath Rate: 15 Vent Support Mode: AC Vent Tidal Volume: 500 Sputum Amount: Moderate PEEP: 5.0 PIP: 41 I&O: Intake and Output 02/12/18 02/13/18 19:00 07:00 Intake Total 687.77 ml 1074.167 ml Output Total 1000 ml 575 ml Balance -312.23 ml 499.167 ml Intake IV Total 687.77 ml 1074.167 ml Output Urine Total 1000 ml 575 ml Subjective: orally intubated but awake on the vent settings reviewed positive secretions no cp nv or bleeding positive uop ET-Tube: 7.5 ET Position: 23 Labs: Current Medications Medications (Trade) Dose Ordered Sig/Roro Route PRN Reason Start Time Stop Time Status Last Admin Dose Admin Acetaminophen (Tylenol) 650 mg Q4H PRN NG Fever/Headache/Mild Pain 02/12/18 02:45 03/14/18 02:44 Albuterol/ Ipratropium (Albuterol/ Ipratropium) 3 ml Q4HRT HHN 02/12/18 11:00 02/17/18 10:59 02/13/18 03:02 Carbidopa/Levodopa (Sinemet 25/) 1 tab THREE TIMES A DAY ORAL 02/12/18 13:00 03/14/18 12:59 02/12/18 17:47 Cinacalcet (Sensipar) 30 mg DAILY ORAL 02/13/18 09:00 03/15/18 08:59 Dextrose/Sodium Chloride 1,000 ml @ 75 mls/hr [id number] IV 02/12/18 11:00 03/14/18 10:59 02/13/18 00:30 Insulin Aspart (NovoLOG) 4 units NOVOTIAC SUBQ 02/12/18 11:50 03/14/18 11:49 02/13/18 05:33 Lansoprazole (Prevacid) 30 mg ACBREAKFAST NG 02/12/18 06:30 03/14/18 06:29 02/13/18 05:32 Lorazepam (Ativan 2mg/ml 1ml) 0.5 mg Q4H PRN IV For Anxiety 02/12/18 09:45 02/19/18 09:44 Piperacillin Sod/ Tazobactam Sod 3.375 gm/Dextrose 110 ml @ 27.5 mls/hr EVERY 8 HOURS IVPB 02/12/18 14:00 02/17/18 13:59 02/13/18 05:51 Vancomycin HCl (Vanco rx to dose) 1 ea DAILY PRN MISC Per rx protocol 02/12/18 02:45 03/14/18 02:44 Vancomycin/Sodium Chloride 250 ml @ 166.667 mls/hr Q12HR@0600,1800 IVPB 02/12/18 18:00 02/17/18 17:59 02/13/18 05:32 Laboratory Tests Test 02/12/18 10:12 02/12/18 10:41 02/13/18 04:23 Arterial Blood pH 7.350 (7.350-7.450) Arterial Blood Partial Pressure CO2 41.0 mmHg (35.0-45.0) Arterial Blood Partial Pressure O2 89.4 mmHg (75.0-100.0) Arterial Blood HCO3 22.1 mmol/L (22.0-26.0) Arterial Blood Oxygen Saturation 96.9 % (92.0-98.0) Arterial Blood Base Excess -3.3 Kerwin Test Positive White Blood Count 20.0 K/UL (4.8-10.8) H 13.2 K/UL (4.8-10.8) H Red Blood Count 3.95 M/UL (4.20-5.40) L 3.60 M/UL (4.20-5.40) L Hemoglobin 10.4 G/DL (12.0-16.0) L 9.5 G/DL (12.0-16.0) L Hematocrit 34.0 % (37.0-47.0) L 30.9 % (37.0-47.0) L Mean Corpuscular Volume 86 FL (80-99) 86 FL (80-99) Mean Corpuscular Hemoglobin 26.3 PG (27.0-31.0) L 26.5 PG (27.0-31.0) L Mean Corpuscular Hemoglobin Concent 30.6 G/DL (32.0-36.0) L 30.8 G/DL (32.0-36.0) L Red Cell Distribution Width 14.0 % (11.6-14.8) 14.0 % (11.6-14.8) Platelet Count 256 K/UL (150-450) 229 K/UL (150-450) Mean Platelet Volume 5.8 FL (6.5-10.1) L 5.5 FL (6.5-10.1) L Neutrophils (%) (Auto) % (45.0-75.0) 84.7 % (45.0-75.0) H Lymphocytes (%) (Auto) % (20.0-45.0) 9.2 % (20.0-45.0) L Monocytes (%) (Auto) % (1.0-10.0) 4.7 % (1.0-10.0) Eosinophils (%) (Auto) % (0.0-3.0) 1.0 % (0.0-3.0) Basophils (%) (Auto) % (0.0-2.0) 0.4 % (0.0-2.0) Differential Total Cells Counted 100 Neutrophils % (Manual) 87 % (45-75) H Lymphocytes % (Manual) 8 % (20-45) L Monocytes % (Manual) 3 % (1-10) Eosinophils % (Manual) 1 % (0-3) Basophils % (Manual) 0 % (0-2) Band Neutrophils 1 % (0-8) Platelet Estimate Adequate Platelet Morphology Normal Hypochromasia 2+ Sodium Level 140 MMOL/L (136-145) 142 MMOL/L (136-145) Potassium Level 4.0 MMOL/L (3.5-5.1) 3.4 MMOL/L (3.5-5.1) L Chloride Level 109 MMOL/L (98-107) H 109 MMOL/L (98-107) H Carbon Dioxide Level 23 MMOL/L (21-32) 22 MMOL/L (21-32) Anion Gap 9 mmol/L (5-15) 11 mmol/L (5-15) Blood Urea Nitrogen 14 mg/dL (7-18) 9 mg/dL (7-18) Creatinine 0.8 MG/DL (0.55-1.30) 0.7 MG/DL (0.55-1.30) Estimat Glomerular Filtration Rate mL/min (>60) mL/min (>60) Glucose Level 110 MG/DL (74-106) H 146 MG/DL (74-106) H Calcium Level 8.1 MG/DL (8.5-10.1) L 8.0 MG/DL (8.5-10.1) L Total Bilirubin 0.4 MG/DL (0.2-1.0) 0.4 MG/DL (0.2-1.0) Aspartate Amino Transf (AST/SGOT) 44 U/L (15-37) H 31 U/L (15-37) Alanine Aminotransferase (ALT/SGPT) 30 U/L (12-78) 13 U/L (12-78) Alkaline Phosphatase 95 U/L (46-116) 86 U/L (46-116) Total Protein 6.5 G/DL (6.4-8.2) 6.3 G/DL (6.4-8.2) L Total Protein (PEP) Pending Albumin 2.4 G/DL (3.4-5.0) L 2.3 G/DL (3.4-5.0) L Albumin (PEP) Pending Globulin 4.1 g/dL 4.0 g/dL Globulin (PEP) Pending Albumin/Globulin Ratio Pending 0.6 (1.0-2.7) L [id number] Pending [id number] Pending Beta Globulins Pending Beta Gamma Globulin Pending PEP Abnormal Protein Bands Pending Protein Electrophoresis Interpret Pending Rosa Darling DO Feb 13, 2018 06:48
[2018-02-13] MEDS: Sensipar 30mg Tab ORAL SCH (10:03)
[2018-02-13] MEDS: Levodopa/Carbidopa 25/100 tab ORAL SCH ×3 (10:03→18:11)
--- NOTE | 2018-02-13 10:10 | Diagnostic Imaging Report ---
History: COG Exam: XR CXR 1 VIEW Comparison: 02/12/2018 FINDINGS/IMPRESSION: Interval decrease in opacity throughout the left lung with persistent opacity still present. Endotracheal tube and metallic stent again noted. Right lung is clear. Ovoid right paratracheal soft tissue mass again noted.
[2018-02-13] MEDS: LORazepam Inj 2mg/ml 1ml IV PRN ×2 (14:57→21:53)
[2018-02-13] MEDS ORDERED: Tubing IV Blood Pump IV ONE (18:03)
[2018-02-13] MEDS ORDERED: Tubing IV Secondary IV ONE (18:03)
[2018-02-13] MEDS ORDERED: D5NS 1000ml IV ONE (18:03)
[2018-02-13] MEDS ORDERED: Sterile Water Irrig 1000ml IRRIG ONE (18:03)
[2018-02-13] MEDS ORDERED: NS 500ML ONE (18:03)
[2018-02-13] MEDS: Vancomycin 1250mg/D5W 250ml IVPB SCH (18:05)
[2018-02-14] VITALS (24 sets, daily range): BP systolic 98–127; BP diastolic 47–69
[2018-02-14] MEDS: D5NS 1,000 ML IV SCH ×2 (03:00→17:52)
[2018-02-14] MEDS: Albuterol/Ipratropium 3ml neb HHN SCH ×6 (03:17→22:40)
[2018-02-14] MEDS: Vancomycin 1250mg/D5W 250ml IVPB SCH ×2 (05:40→17:53)
[2018-02-14] MEDS: Piperacillin/Tazobactam 3.375 GM in D5W 110 ML IVPB SCH ×3 (05:40→21:21)
[2018-02-14] MEDS: NovoLOG Insulin Flexpen SUBQ SCH ×3 (05:52→18:01)
--- NOTE | 2018-02-14 06:45 | Pulmonolgy Critical Care Note ---
Critical Care - Asmt/Plan Assessment/Plan: 1. Acute respiratory failure. 2. Extensive pneumonia, left lung. 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 5. Parkinson's disease. 6. Esophageal dysmotility. 7. Morbid obesity with obesity hypoventilation syndrome. 8. Hypertension. Currently normotensive. 9. Nephrolithiasis and renal mass. 10. History of breast cancer. 11. GN UTI PLAN fu cultures labs in am, replace lytes icheck RSBI daily and weaning if less than 105 cxr in am pressors for MAP less than 65 mmhg nebs wound care Nutrition slightly improved today, continue ICU 35 min of CCT spent with pt, reviewing chart discussing plan with nursing. Respiratory: CXR Cardiac: continue to monitor HR/BP Infectious Disease: check cultures, continue antibiotics Time Spent (Minutes): 40 Notes Reviewed: cardio Discussed with: nurses Critical Care - Objective Last 24 Hour Vital Signs Date Time Temp Pulse Resp B/P (MAP) Pulse Ox O2 Delivery O2 Flow Rate FiO2 02/14/18 05:00 86 15 114/65 (81) 100 02/14/18 04:58 88 15 30 02/14/18 04:00 Mechanical Ventilator 02/14/18 04:00 104 02/14/18 04:00 30 02/14/18 04:00 98.0 98 25 106/67 (80) 100 98.0 02/14/18 03:28 97 25 100 Mechanical Ventilator 30 02/14/18 03:18 98 23 98 Mechanical Ventilator 40 02/14/18 03:18 98 23 30 02/14/18 03:00 97 17 106/67 (80) 100 02/14/18 02:00 88 17 102/55 (71) 100 02/14/18 01:00 87 16 101/51 (68) 99 02/14/18 00:42 89 25 30 02/14/18 00:00 97.9 91 18 112/65 (81) 100 97.9 02/14/18 00:00 Mechanical Ventilator 02/14/18 00:00 40 02/14/18 00:00 96 02/13/18 23:00 106 18 99/56 (70) 99 02/13/18 22:46 98 25 100 Mechanical Ventilator 40 02/13/18 22:44 97 25 40 02/13/18 22:36 97 23 98 Mechanical Ventilator 40 02/13/18 22:00 106 25 124/74 (91) 99 02/13/18 21:00 96 17 108/70 (83) 100 02/13/18 20:55 92 27 40 02/13/18 20:00 Mechanical Ventilator 02/13/18 20:00 98 02/13/18 20:00 97.6 102 21 96/63 (74) 99 97.6 02/13/18 20:00 40 02/13/18 19:16 113 25 100 Mechanical Ventilator 40 02/13/18 19:02 112 23 98 Mechanical Ventilator 40 02/13/18 19:00 102 21 96/63 (74) 99 02/13/18 19:00 112 27 40 02/13/18 18:00 98.8 111 27 131/78 (95) 99 98.8 02/13/18 17:04 107 22 40 02/13/18 17:00 98.9 115 26 140/85 (103) 99 98.9 02/13/18 16:00 98.8 102 17 109/75 (86) 99 98.8 02/13/18 16:00 40 02/13/18 16:00 106 02/13/18 16:00 Mechanical Ventilator 02/13/18 15:08 115 25 95 Mechanical Ventilator 40 02/13/18 15:00 112 30 159/86 (110) 99 02/13/18 14:46 113 23 98 Mechanical Ventilator 40 02/13/18 14:45 117 22 40 02/13/18 14:00 112 30 121/81 (94) 02/13/18 13:49 103 20 40 02/13/18 13:00 98.8 112 25 136/87 (103) 100 98.8 02/13/18 12:00 98.8 113 21 159/90 (113) 100 98.8 02/13/18 12:00 40 02/13/18 12:00 102 02/13/18 12:00 Mechanical Ventilator 02/13/18 11:40 114 27 100 Mechanical Ventilator 40 02/13/18 11:27 107 25 100 Mechanical Ventilator 40 02/13/18 11:26 107 24 40 02/13/18 11:00 104 24 149/81 (103) 100 02/13/18 10:00 98.6 113 24 151/98 (115) 100 98.6 02/13/18 09:22 107 25 40 02/13/18 09:00 111 25 133/87 (102) 98 02/13/18 08:00 113 02/13/18 08:00 Mechanical Ventilator 02/13/18 08:00 40 02/13/18 08:00 98.6 108 24 132/98 (109) 100 98.6 02/13/18 07:30 110 34 100 Mechanical Ventilator 40 02/13/18 07:27 11 29 100 Mechanical Ventilator 40 02/13/18 07:24 109 28 40 02/13/18 07:00 114 22 143/89 (107) 98 Status: somnolent Condition: improving Lungs: rhonchi - left greater than right Abdomen: soft, active bowel sounds Extremities: edema Micro: Microbiology Date/Time Source Procedure Growth Status 02/11/18 22:00 Blood Blood Culture - Preliminary NO GROWTH AFTER 24 HOURS Resulted 02/11/18 21:42 Blood Blood Culture - Preliminary NO GROWTH AFTER 24 HOURS Resulted 02/11/18 21:51 Nasal Nares MRSA Culture - Final Staphylococcus Aureus - Mrsa Complete 02/11/18 22:30 Urine,Clean Catch Urine Culture - Final Escherichia Coli Complete 02/11/18 21:51 Rectum VRE Culture - Final Enterococcus Faecalis - Vre Complete Accucheck: 139 Blood Sugars: BS controlled Critical Care - Subjective ROS Limited/Unobtainable: Yes Condition: improving FI02: 30 Vent Support Breath Rate: 15 Vent Support Mode: AC Vent Tidal Volume: 500 Sputum Amount: Small PEEP: 5.0 PIP: 45 I&O: Intake and Output 02/13/18 02/14/18 19:00 07:00 Intake Total 960.0 ml 960.0 ml Output Total 510 ml 490 ml Balance 450.0 ml 470.0 ml Intake Free Water 250 ml IV Total 710.0 ml 960.0 ml Output Urine Total 510 ml 490 ml Subjective: orally intubated on the vent settings reviewed positive secretions, purulent no cp nv or bleeding positive uop increased rhonchi left ET-Tube: 7.5 ET Position: 23 Labs: Laboratory Tests Test 02/13/18 17:00 Vancomycin Level Trough 10.8 ug/mL (5.0-12.0) Current Medications Medications (Trade) Dose Ordered Sig/Roro Route PRN Reason Start Time Stop Time Status Last Admin Dose Admin Acetaminophen (Tylenol) 650 mg Q4H PRN NG Fever/Headache/Mild Pain 02/12/18 02:45 03/14/18 02:44 Albuterol/ Ipratropium (Albuterol/ Ipratropium) 3 ml Q4HRT HHN 02/12/18 11:00 02/17/18 10:59 02/14/18 03:17 Carbidopa/Levodopa (Sinemet 25/100) 1 tab THREE TIMES A DAY ORAL 02/12/18 13:00 03/14/18 12:59 02/13/18 18:11 Cinacalcet (Sensipar) 30 mg DAILY ORAL 02/13/18 09:00 03/15/18 08:59 02/13/18 10:03 Dextrose/Sodium Chloride 1,000 ml @ 75 mls/hr [id number] IV 02/12/18 11:00 03/14/18 10:59 02/14/18 03:00 Insulin Aspart (NovoLOG) 4 units NOVOTIAC SUBQ 02/12/18 11:50 03/14/18 11:49 02/14/18 05:52 Lansoprazole (Prevacid) 30 mg ACBREAKFAST NG 02/12/18 06:30 03/14/18 06:29 02/14/18 05:40 Lorazepam (Ativan 2mg/ml 1ml) 0.5 mg Q4H PRN IV For Anxiety 02/12/18 09:45 02/19/18 09:44 02/13/18 21:53 Ondansetron HCl (Zofran) 4 mg Q4H PRN IVP Nausea & Vomiting 02/13/18 10:30 03/15/18 10:29 02/13/18 11:06 Piperacillin Sod/ Tazobactam Sod 3.375 gm/Dextrose 110 ml @ 27.5 mls/hr EVERY 8 HOURS IVPB 02/12/18 14:00 02/17/18 13:59 02/14/18 05:40 Vancomycin HCl (Vanco rx to dose) 1 ea DAILY PRN MISC Per rx protocol 02/12/18 02:45 03/14/18 02:44 Vancomycin HCl/ Dextrose 250 ml @ 166.667 mls/hr Q12H IVPB 02/13/18 18:00 02/18/18 17:59 02/14/18 05:40 Rosa Darling DO Feb 14, 2018 06:45
[2018-02-14 09:08] LABS: HEMATOCRIT 31.4 % (37.0-47.0); HEMOGLOBIN 9.4 G/DL (12.0-16.0); MEAN CORPUSCULAR VOLUME 86 FL (80-99); PLATELET COUNT 224 K/UL (150-450); RED BLOOD COUNT 3.65 M/UL (4.20-5.40); WHITE BLOOD COUNT 12.3 K/UL (4.8-10.8)
[2018-02-14] MEDS: Levodopa/Carbidopa 25/100 tab ORAL SCH ×3 (09:09→17:53)
[2018-02-14] MEDS: Sensipar 30mg Tab ORAL SCH (09:09)
[2018-02-14 09:31] LABS: ANION GAP 8 mmol/L (5-15); BLOOD UREA NITROGEN 6 mg/dL (7-18); CALCIUM 7.7 MG/DL (8.5-10.1); CARBON DIOXIDE 26 MMOL/L (21-32); CHLORIDE 110 MMOL/L (98-107); CREATININE 0.8 MG/DL (0.55-1.30); POTASSIUM 4.1 MMOL/L (3.5-5.1); SODIUM 143 MMOL/L (136-145)
--- NOTE | 2018-02-14 10:28 | Diagnostic Imaging Report ---
History: COUGH Exam: XR CXR 1 VIEW Comparison: 02/12 and FINDINGS Ill-defined airspace opacity and possibility of a small left pleural effusion not significantly changed. The cardiac silhouette appears unchanged. Metallic stent and endotracheal tube again noted. Ovoid right paratracheal mass again noted. The right lung appears clear. IMPRESSION: No significant interval change in appearance of the chest.
[2018-02-14] MEDS: LORazepam Inj 2mg/ml 1ml IV PRN (20:14)
[2018-02-14] MEDS: Acetaminophen 650mg/20.3ml NG PRN (21:07)
[2018-02-15] VITALS (24 sets, daily range): BP systolic 98–140; BP diastolic 50–88
[2018-02-15] MEDS: Albuterol/Ipratropium 3ml neb HHN SCH ×6 (03:17→23:01)
[2018-02-15 06:01] LABS: BASOPHILS % (AUTO) 0.7 % (0.0-2.0); EOSINOPHILS % (AUTO) 0.5 % (0.0-3.0); HEMATOCRIT 28.4 % (37.0-47.0); HEMOGLOBIN 8.5 G/DL (12.0-16.0); MEAN CORPUSCULAR VOLUME 86 FL (80-99); MONOCYTES % (AUTO) 8.3 % (1.0-10.0); NEUTROPHILS % (AUTO) 79.5 % (45.0-75.0); PLATELET COUNT 216 K/UL (150-450); RED BLOOD COUNT 3.32 M/UL (4.20-5.40); WHITE BLOOD COUNT 9.5 K/UL (4.8-10.8)
[2018-02-15] MEDS: D5NS 1,000 ML IV SCH ×2 (06:05→19:01)
[2018-02-15] MEDS: Piperacillin/Tazobactam 3.375 GM in D5W 110 ML IVPB SCH ×3 (06:06→22:00)
[2018-02-15] MEDS: NovoLOG Insulin Flexpen SUBQ SCH ×3 (06:08→17:03)
[2018-02-15 06:19] LABS: ANION GAP 8 mmol/L (5-15); BLOOD UREA NITROGEN 6 mg/dL (7-18); CALCIUM 7.5 MG/DL (8.5-10.1); CARBON DIOXIDE 24 MMOL/L (21-32); CHLORIDE 110 MMOL/L (98-107); CREATININE 0.9 MG/DL (0.55-1.30); POTASSIUM 3.8 MMOL/L (3.5-5.1); SODIUM 142 MMOL/L (136-145)
[2018-02-15] MEDS: Vancomycin 1250mg/D5W 250ml IVPB SCH (07:10)
[2018-02-15] MEDS: Levodopa/Carbidopa 25/100 tab ORAL SCH ×3 (08:24→17:03)
[2018-02-15] MEDS: Sensipar 30mg Tab ORAL SCH (08:24)
[2018-02-15] MEDS: Miralax 17gm pkt ORAL SCH (08:24)
[2018-02-15] MEDS ORDERED: D5NS 1000ml IV ONE (10:20)
[2018-02-15] MEDS: Vancomycin 1gm/D5W 275ml IVPB SCH ×4 (10:22→23:14)
[2018-02-15] MEDS: Acetaminophen 650mg/20.3ml NG PRN (11:49)
--- NOTE | 2018-02-15 15:33 | Diagnostic Imaging Report ---
Indication: Dyspnea Technique: XRAY Chest 1v Comparison: 02/14/2018 Findings: Heart size and mediastinal contours stable. Stent projecting over the upper mediastinum unchanged. Endotracheal tube unchanged. There is persistent patchy bibasilar airspace opacities. Possible left pleural effusion. No pneumothorax. Right paratracheal mass unchanged. Impression: No significant interval change compared to one day prior.
--- NOTE | 2018-02-15 17:53 | Pulmonology Progress Note ---
Assessment/Plan Assessment/Plan 1. Acute respiratory failure. 2. Extensive pneumonia, left lung. 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 5. Parkinson's disease. 6. Esophageal dysmotility. 7. Morbid obesity with obesity hypoventilation syndrome. 8. Hypertension. Currently normotensive. 9. Nephrolithiasis and renal mass. 10. History of breast cancer. WBC normal weaning parameters poor tolerating feedings cont abx wean when able disc w son () at bedside Subjective ROS Limited/Unobtainable: Yes Constitutional: Denies: fever Allergies: Coded Allergies: No Known Allergies (Unverified , 01/11/14) Objective Last 24 Hour Vital Signs Date Time Temp Pulse Resp B/P (MAP) Pulse Ox O2 Delivery O2 Flow Rate FiO2 02/15/18 17:00 93 18 124/88 (100) 100 02/15/18 16:39 92 20 30 02/15/18 16:00 98.1 106 17 135/81 (99) 100 98.1 02/15/18 16:00 30 02/15/18 16:00 Mechanical Ventilator 02/15/18 15:47 101 20 100 Mechanical Ventilator 30 02/15/18 15:37 81 20 30 02/15/18 15:36 81 20 100 Mechanical Ventilator 30 02/15/18 15:22 83 02/15/18 15:00 65 20 122/56 (78) 100 02/15/18 14:00 97 20 128/64 (85) 97 02/15/18 13:00 93 20 119/65 (83) 98 02/15/18 12:44 90 20 30 02/15/18 12:25 101 02/15/18 12:00 Mechanical Ventilator 02/15/18 12:00 97.8 88 17 124/59 (80) 100 97.8 02/15/18 12:00 30 02/15/18 11:00 98 13 125/67 (86) 100 02/15/18 10:51 91 20 100 Mechanical Ventilator 30 02/15/18 10:43 64 20 30 02/15/18 10:43 80 22 100 Mechanical Ventilator 30 02/15/18 10:00 85 18 130/62 (84) 100 02/15/18 09:00 92 18 124/68 (86) 99 02/15/18 08:43 88 20 30 02/15/18 08:43 100 02/15/18 08:00 30 02/15/18 08:00 98.1 88 19 109/53 (71) 100 98.1 02/15/18 08:00 Mechanical Ventilator 02/15/18 07:57 89 02/15/18 07:14 94 20 100 Mechanical Ventilator 30 02/15/18 07:05 83 24 100 Mechanical Ventilator 30 02/15/18 07:05 94 24 30 02/15/18 07:00 90 20 133/67 (89) 100 02/15/18 06:00 81 20 120/72 (88) 100 02/15/18 05:00 85 20 107/59 (75) 100 02/15/18 04:46 87 25 30 02/15/18 04:00 Mechanical Ventilator 02/15/18 04:00 98.3 88 22 116/75 (89) 100 98.3 02/15/18 04:00 94 02/15/18 04:00 60 02/15/18 03:32 100 25 100 Mechanical Ventilator 60 02/15/18 03:18 82 23 100 Mechanical Ventilator 60 02/15/18 03:16 71 20 60 02/15/18 03:00 94 21 140/74 (96) 100 02/15/18 03:00 89 22 140/74 (96) 99 02/15/18 02:00 75 22 98/59 (72) 99 02/15/18 01:00 87 22 117/64 (81) 100 02/15/18 01:00 60 02/15/18 00:58 94 20 60 02/15/18 00:00 102 02/15/18 00:00 Mechanical Ventilator 02/15/18 00:00 80 02/15/18 00:00 98.0 101 22 131/50 (77) 100 98.0 02/14/18 23:00 101 22 98/59 (72) 100 02/14/18 22:50 104 25 99 Mechanical Ventilator 30 02/14/18 22:41 103 23 99 Mechanical Ventilator 100 02/14/18 22:40 102 25 100 02/14/18 22:00 105 22 114/63 (80) 100 02/14/18 21:44 98.8 02/14/18 21:24 104 23 100 02/14/18 21:07 98.8 02/14/18 21:00 110 27 126/57 (80) 98 02/14/18 20:01 113 25 100 Mechanical Ventilator 30 02/14/18 20:00 98.5 121 29 114/69 (84) 99 98.5 02/14/18 20:00 60 02/14/18 20:00 Mechanical Ventilator 02/14/18 20:00 115 02/14/18 19:42 107 21 100 Mechanical Ventilator 30 02/14/18 19:33 107 23 30 02/14/18 19:32 108 23 100 Mechanical Ventilator 30 02/14/18 19:00 111 18 114/69 (84) 100 02/14/18 18:00 97 18 108/67 (81) 100 Intake and Output 02/14/18 02/15/18 19:00 07:00 Intake Total 985.833 ml 1175.0 ml Output Total 735 ml 750 ml Balance 250.833 ml 425.0 ml Intake Oral 50 ml Free Water 50 ml IV Total 765.833 ml 935.0 ml Tube Feeding 120 ml 240 ml Output Urine Total 735 ml 750 ml # Bowel Movements 2 Objective morbidly obese General Appearance: no acute distress HEENT: atraumatic Respiratory/Chest: rhonchi Cardiovascular: normal rate Abdomen: soft, non tender Laboratory Tests 02/14/18 20:47: Arterial Blood pH 7.100*L, Arterial Blood Partial Pressure CO2 79.8*H, Arterial Blood Partial Pressure O2 354.6H, Arterial Blood HCO3 24.2, Arterial Blood Oxygen Saturation 99.3H, Arterial Blood Base Excess -6.4, Kerwin Test Positive 02/15/18 05:39: White Blood Count 9.5, Red Blood Count 3.32L, Hemoglobin 8.5L, Hematocrit 28.4L , Mean Corpuscular Volume 86, Mean Corpuscular Hemoglobin 25.6L, Mean Corpuscular Hemoglobin Concent 29.9L, Red Cell Distribution Width 14.0, Platelet Count 216, Mean Platelet Volume 5.7L, Neutrophils (%) (Auto) 79.5H, Lymphocytes (%) (Auto) 11.0L, Monocytes (%) (Auto) 8.3, Eosinophils (%) (Auto) 0.5, Basophils (%) (Auto) 0.7, Sodium Level 142, Potassium Level 3.8, Chloride Level 110H, Carbon Dioxide Level 24, Anion Gap 8, Blood Urea Nitrogen 6L, Creatinine 0.9, Estimat Glomerular Filtration Rate , Glucose Level 154H, Calcium Level 7.5L, Vancomycin Level Trough 21.1H 02/15/18 08:31: Arterial Blood pH 7.406, Arterial Blood Partial Pressure CO2 37.5, Arterial Blood Partial Pressure O2 100.1H, Arterial Blood HCO3 23.0, Arterial Blood Oxygen Saturation 98.0, Arterial Blood Base Excess -1.4, Kerwin Test Positive 02/15/18 15:50: Stool Occult Blood [Pending] Current Medications Medications (Trade) Dose Ordered Sig/Roro Route PRN Reason Start Time Stop Time Status Last Admin Dose Admin Acetaminophen (Tylenol) 650 mg Q4H PRN NG Fever/Headache/Mild Pain 02/12/18 02:45 03/14/18 02:44 02/15/18 11:49 Albuterol/ Ipratropium (Albuterol/ Ipratropium) 3 ml Q4HRT HHN 02/12/18 11:00 02/17/18 10:59 02/15/18 15:37 Bisacodyl (Dulcolax) 10 mg DAILYPRN PRN RECTAL Constipation 02/14/18 19:15 03/16/18 19:14 Carbidopa/Levodopa (Sinemet 25/100) 1 tab THREE TIMES A DAY ORAL 02/12/18 13:00 03/14/18 12:59 02/15/18 17:03 Cinacalcet (Sensipar) 30 mg DAILY ORAL 02/13/18 09:00 03/15/18 08:59 02/15/18 08:24 Dextrose/Sodium Chloride 1,000 ml @ 75 mls/hr [id number] IV 02/12/18 11:00 03/14/18 10:59 02/15/18 06:05 Insulin Aspart (NovoLOG) 4 units NOVOTIAC SUBQ 02/12/18 11:50 03/14/18 11:49 02/15/18 17:03 Lansoprazole (Prevacid) 30 mg ACBREAKFAST NG 02/12/18 06:30 03/14/18 06:29 02/15/18 06:07 Lorazepam (Ativan 2mg/ml 1ml) 0.5 mg Q4H PRN IV For Anxiety 7/20/18 09:45 02/19/18 09:44 02/14/18 20:14 Ondansetron HCl (Zofran) 4 mg Q4H PRN IVP Nausea & Vomiting 02/13/18 10:30 03/15/18 10:29 02/14/18 17:04 Piperacillin Sod/ Tazobactam Sod 3.375 gm/Dextrose 110 ml @ 27.5 mls/hr EVERY 8 HOURS IVPB 02/12/18 14:00 02/17/18 13:59 02/15/18 14:35 Polyethylene Glycol (Miralax) 17 gm DAILY ORAL 02/15/18 09:00 03/17/18 08:59 02/15/18 08:24 Vancomycin HCl (Vanco rx to dose) 1 ea DAILY PRN MISC Per rx protocol 02/12/18 02:45 03/14/18 02:44 Vancomycin HCl 1 gm/Dextrose 275 ml @ 183.708 mls/hr Q12HR@1100,2300 IVPB 02/15/18 11:00 02/20/18 10:59 02/15/18 10:22 Gómez Matos MD Feb 15, 2018 17:53
[2018-02-16] VITALS (24 sets, daily range): BP systolic 90–135; BP diastolic 48–89
[2018-02-16] MEDS: LORazepam Inj 2mg/ml 1ml IV PRN ×2 (00:18→20:30)
[2018-02-16 04:35] LABS: BASOPHILS % (AUTO) 0.5 % (0.0-2.0); EOSINOPHILS % (AUTO) 1.7 % (0.0-3.0); HEMATOCRIT 29.4 % (37.0-47.0); LYMPHOCYTES % (AUTO) 10.9 % (20.0-45.0); MEAN CORPUSCULAR VOLUME 85 FL (80-99); MONOCYTES % (AUTO) 7.1 % (1.0-10.0); NEUTROPHILS % (AUTO) 79.9 % (45.0-75.0); PLATELET COUNT 243 K/UL (150-450); RED BLOOD COUNT 3.45 M/UL (4.20-5.40); RED CELL DISTRIBUTION WIDTH 14.4 % (11.6-14.8)
[2018-02-16 04:40] LABS: ANION GAP 12 mmol/L (5-15); BLOOD UREA NITROGEN 7 mg/dL (7-18); CALCIUM 7.6 MG/DL (8.5-10.1); CARBON DIOXIDE 23 MMOL/L (21-32); CHLORIDE 108 MMOL/L (98-107); CREATININE 1.1 MG/DL (0.55-1.30); POTASSIUM 3.4 MMOL/L (3.5-5.1); SODIUM 142 MMOL/L (136-145)
[2018-02-16] MEDS: Albuterol/Ipratropium 3ml neb HHN SCH ×6 (05:00→22:58)
[2018-02-16] MEDS: Piperacillin/Tazobactam 3.375 GM in D5W 110 ML IVPB SCH ×3 (05:55→22:00)
[2018-02-16] MEDS: NovoLOG Insulin Flexpen SUBQ SCH ×3 (05:57→17:19)
[2018-02-16] MEDS: D5NS 1,000 ML IV SCH (08:35)
--- NOTE | 2018-02-16 09:19 | Pulmonology Progress Note ---
Assessment/Plan Assessment/Plan 1. Acute respiratory failure. 2. Extensive pneumonia, left lung. 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 5. Parkinson's disease. 6. Esophageal dysmotility. 7. Morbid obesity with obesity hypoventilation syndrome. 8. Hypertension. Currently normotensive. 9. Nephrolithiasis and renal mass. 10. History of breast cancer. WBC normal Hgb better weaning parameters poor tolerating feedings cont abx K rx echo wean when able disc w RN Subjective ROS Limited/Unobtainable: Yes Constitutional: Denies: fever Allergies: Coded Allergies: No Known Allergies (Unverified , 01/11/14) Objective Last 24 Hour Vital Signs Date Time Temp Pulse Resp B/P (MAP) Pulse Ox O2 Delivery O2 Flow Rate FiO2 02/16/18 08:00 98.9 116 24 109/73 (85) 99 98.9 02/16/18 08:00 Mechanical Ventilator 02/16/18 08:00 30 02/16/18 07:07 112 23 100 Mechanical Ventilator 30 02/16/18 07:03 108 20 30 02/16/18 07:00 116 20 113/60 (77) 100 02/16/18 06:55 107 20 100 Mechanical Ventilator 30 02/16/18 06:00 99.3 113 24 119/89 (99) 99 99.3 02/16/18 05:12 114 25 30 02/16/18 05:00 106 20 114/53 (73) 100 02/16/18 04:00 30 02/16/18 04:00 Mechanical Ventilator 02/16/18 04:00 98.9 117 20 129/72 (91) 100 98.9 02/16/18 04:00 89 02/16/18 03:40 106 20 100 Mechanical Ventilator 30 02/16/18 03:30 105 20 99 Mechanical Ventilator 30 02/16/18 03:29 106 20 30 02/16/18 03:00 100 20 117/57 (77) 100 02/16/18 02:00 100 20 117/69 (85) 100 02/16/18 01:00 95 20 109/66 (80) 100 02/16/18 00:43 94 20 30 02/16/18 00:00 Mechanical Ventilator 02/16/18 00:00 98.2 103 20 103/55 (71) 99 98.2 02/15/18 23:10 103 20 100 Mechanical Ventilator 30 02/15/18 23:00 113 20 99 Mechanical Ventilator 30 18 23:00 115 20 30 02/15/18 23:00 103 20 114/58 (76) 97 718 22:00 103 20 109/52 (71) 97 18 21:06 110 20 30 18 21:00 107 20 113/63 (80) 97 18 20:00 98 02/15/18 20:00 Mechanical Ventilator 02/15/18 20:00 98.0 107 20 132/77 (95) 100 98.0 02/15/18 20:00 30 02/15/18 20:00 100 20 102/55 (71) 97 02/15/18 19:00 110 21 132/77 (95) 100 02/15/18 19:00 98 20 100 Mechanical Ventilator 30 02/15/18 19:00 90 20 100 Mechanical Ventilator 30 02/15/18 18:54 90 20 30 02/15/18 18:00 97 20 122/69 (86) 100 02/15/18 17:00 93 18 124/88 (100) 100 02/15/18 16:39 92 20 30 02/15/18 16:00 98.1 106 17 135/81 (99) 100 98.1 02/15/18 16:00 30 02/15/18 16:00 Mechanical Ventilator 02/15/18 15:47 101 20 100 Mechanical Ventilator 30 02/15/18 15:37 81 20 30 02/15/18 15:36 81 20 100 Mechanical Ventilator 30 02/15/18 15:22 83 02/15/18 15:00 65 20 122/56 (78) 100 02/15/18 14:00 97 20 128/64 (85) 97 18 13:00 93 20 119/65 (83) 98 02/15/18 12:44 90 20 30 02/15/18 12:25 101 02/15/18 12:00 Mechanical Ventilator 02/15/18 12:00 97.8 88 17 124/59 (80) 100 97.8 02/15/18 12:00 30 02/15/18 11:00 98 13 125/67 (86) 100 7/23/18 10:51 91 20 100 Mechanical Ventilator 30 02/15/18 10:43 64 20 30 02/15/18 10:43 80 22 100 Mechanical Ventilator 30 02/15/18 10:00 85 18 130/62 (84) 100 Intake and Output 02/15/18 02/16/18 19:00 07:00 Intake Total 2170.000 ml 1867.5 ml Output Total 495 ml 540 ml Balance 1675.000 ml 1327.5 ml Free Water 100 ml IV Total 1470.000 ml 1052.5 ml Tube Feeding 520 ml 655 ml Other 180 ml 60 ml Output Urine Total 495 ml 540 ml # Bowel Movements 2 2 Objective morbidly obese General Appearance: no acute distress HEENT: atraumatic Respiratory/Chest: decreased breath sounds Cardiovascular: normal rate Abdomen: soft, non tender Laboratory Tests 02/15/18 15:50: Stool Occult Blood [Pending] 02/16/18 03:54: White Blood Count 11.0H, Red Blood Count 3.45L, Hemoglobin 9.0L, Hematocrit 29.4L, Mean Corpuscular Volume 85, Mean Corpuscular Hemoglobin 26.2L, Mean Corpuscular Hemoglobin Concent 30.7L, Red Cell Distribution Width 14.4, Platelet Count 243, Mean Platelet Volume 5.8L, Neutrophils (%) (Auto) 79.9H, Lymphocytes (%) (Auto) 10.9L, Monocytes (%) (Auto) 7.1, Eosinophils (%) (Auto) 1.7, Basophils (%) (Auto) 0.5, Sodium Level 142, Potassium Level 3.4L, Chloride Level 108H, Carbon Dioxide Level 23, Anion Gap 12, Blood Urea Nitrogen 7, Creatinine 1.1, Estimat Glomerular Filtration Rate , Glucose Level 173H, Calcium Level 7.6L 02/16/18 04:00: Stool Occult Blood [Pending] Current Medications Medications (Trade) Dose Ordered Sig/Roro Route PRN Reason Start Time Stop Time Status Last Admin Dose Admin Acetaminophen (Tylenol) 650 mg Q4H PRN NG Fever/Headache/Mild Pain 02/12/18 02:45 03/14/18 02:44 02/15/18 11:49 Albuterol/ Ipratropium (Albuterol/ Ipratropium) 3 ml Q4HRT HHN 02/12/18 11:00 02/17/18 10:59 02/16/18 06:59 Bisacodyl (Dulcolax) 10 mg DAILYPRN PRN RECTAL Constipation 02/14/18 19:15 03/16/18 19:14 Carbidopa/Levodopa (Sinemet 25/100) 1 tab THREE TIMES A DAY ORAL 02/12/18 13:00 03/14/18 12:59 02/15/18 17:03 Cinacalcet (Sensipar) 30 mg DAILY ORAL 02/13/18 09:00 03/15/18 08:59 02/15/18 08:24 Dextrose/Sodium Chloride 1,000 ml @ 75 mls/hr [id number] IV 02/12/18 11:00 03/14/18 10:59 02/16/18 08:35 Insulin Aspart (NovoLOG) 4 units NOVOTIAC SUBQ 02/12/18 11:50 03/14/18 11:49 02/16/18 05:57 Lansoprazole (Prevacid) 30 mg ACBREAKFAST NG 02/12/18 06:30 03/14/18 06:29 02/16/18 05:55 Lorazepam (Ativan 2mg/ml 1ml) 0.5 mg Q4H PRN IV For Anxiety 02/12/18 09:45 02/19/18 09:44 02/16/18 00:18 Ondansetron HCl (Zofran) 4 mg Q4H PRN IVP Nausea & Vomiting 02/13/18 10:30 03/15/18 10:29 02/14/18 17:04 Piperacillin Sod/ Tazobactam Sod 3.375 gm/Dextrose 110 ml @ 27.5 mls/hr EVERY 8 HOURS IVPB 02/12/18 14:00 02/17/18 13:59 02/16/18 05:55 Polyethylene Glycol (Miralax) 17 gm DAILY ORAL 02/15/18 09:00 03/17/18 08:59 02/15/18 08:24 Vancomycin HCl (Vanco rx to dose) 1 ea DAILY PRN MISC Per rx protocol 02/12/18 02:45 03/14/18 02:44 Vancomycin HCl 1 gm/Dextrose 275 ml @ 183.708 mls/hr Q12HR@1100,2300 IVPB 02/15/18 11:00 02/20/18 10:59 02/15/18 23:14 Gómez Matos MD Feb 16, 2018 09:19
[2018-02-16] MEDS: Miralax 17gm pkt ORAL SCH (09:35)
[2018-02-16] MEDS: Levodopa/Carbidopa 25/100 tab ORAL SCH ×3 (09:35→18:10)
[2018-02-16] MEDS: Sensipar 30mg Tab ORAL SCH (09:35)
[2018-02-16] MEDS ORDERED: Vancomycin 750mg/NS 250ml IVPB ONE (16:00)
--- NOTE | 2018-02-16 17:34 | Cardiology Report ---
APPROVED REPORT EXAM: Two-dimensional and M-mode echocardiogram with Doppler and color Doppler. INDICATION SOB M-Mode DIMENSIONS IVSd1.5 (0.7-1.1cm)Left Atrium (MM)4.5 (1.6-4.0cm) LVDd4.4 (3.5-5.6cm)Aortic Root3.4 (2.0-3.7cm) IVSs1.7 cm LVDs2.9 (2.5-4.0cm) PWs2.4 cm Normal left ventricular chamber size, hyperdynamic systolic function and wall motion to extent visualized. Left ventricular ejection fraction estimated to be 70-75 %. Mild left ventricular hypertrophy. No evidence of pericardial effusion. Mild left atrial enlargement. Right atrial size at upper limits of normal. Right ventricular dilated and somewhat hypokinetic Aortic valve calcification with decreased right coronary cusp excursion c/w mild aortic stenosis. Thickened mitral valve leaflets with normal excursion. Mitral annulus and aortic root calcification. Pulmonic valve not well visualized. Normal tricuspid valve structure. IVC dilated at 3.1 cm without physiologic collapse suggestive of increased RA pressure. A color flow and spectral Doppler study was performed and revealed: Mild aortic regurgitation. Peak aortic valve gradient of 23 mm Hg and a mean of 11 mmHg. Aortic valve area 1.5 cm2 calculated by continuity equation suggestive of mild aortic stenosis.. Mild to moderate mitral regurgitation. Trace tricuspid regurgitation. Tricuspid systolic velocities suggests peak right ventricular systolic pressure of AT LEAST 34 mmHg , however this is likley an underestimation of pasp as min TR velocity profile
[2018-02-17] VITALS (24 sets, daily range): BP systolic 93–159; BP diastolic 43–93
[2018-02-17] MEDS: Albuterol/Ipratropium 3ml neb HHN SCH ×2 (03:49→07:04)
[2018-02-17] MEDS: Piperacillin/Tazobactam 3.375 GM in D5W 110 ML IVPB SCH ×3 (05:49→22:16)
[2018-02-17] MEDS: NovoLOG Insulin Flexpen SUBQ SCH ×3 (05:51→16:34)
[2018-02-17 06:30] LABS: BASOPHILS % (AUTO) 0.7 % (0.0-2.0); EOSINOPHILS % (AUTO) 2.7 % (0.0-3.0); HEMATOCRIT 28.3 % (37.0-47.0); HEMOGLOBIN 8.5 G/DL (12.0-16.0); LYMPHOCYTES % (AUTO) 11.9 % (20.0-45.0); MEAN CORPUSCULAR VOLUME 85 FL (80-99); MONOCYTES % (AUTO) 8.9 % (1.0-10.0); NEUTROPHILS % (AUTO) 75.8 % (45.0-75.0); PLATELET COUNT 239 K/UL (150-450); RED BLOOD COUNT 3.34 M/UL (4.20-5.40); RED CELL DISTRIBUTION WIDTH 14.1 % (11.6-14.8)
[2018-02-17 06:49] LABS: ALANINE AMINOTRANSFERASE 13 U/L (12-78); ALBUMIN 1.9 G/DL (3.4-5.0); ALBUMIN/GLOBULIN RATIO 0.5 (1.0-2.7); ALKALINE PHOSPHATASE 97 U/L (46-116); ANION GAP 7 mmol/L (5-15); ASPARTATE AMINO TRANSFERASE 14 U/L (15-37); BILIRUBIN,TOTAL 0.2 MG/DL (0.2-1.0); BLOOD UREA NITROGEN 12 mg/dL (7-18); CALCIUM 8.3 MG/DL (8.5-10.1); CARBON DIOXIDE 27 MMOL/L (21-32); CHLORIDE 112 MMOL/L (98-107); CREATININE 1.1 MG/DL (0.55-1.30); POTASSIUM 3.6 MMOL/L (3.5-5.1); SODIUM 146 MMOL/L (136-145)
--- NOTE | 2018-02-17 07:39 | Diagnostic Imaging Report ---
APPROVED REPORT CPT Code: 76559 Present Symptoms Shortness of breath Comments Technically difficult study due to vessel depth (mid-thigh and calf area). BILATERAL: Imaging reveals a patent deep venous system bilaterally. There is no evidence of thrombus within the femoral, popliteal or tibial segments. The greater saphenous veins are also within normal limits. Doppler indicates normal spontaneous flow within these segments.
--- NOTE | 2018-02-17 08:45 | Pulmonology Progress Note ---
Assessment/Plan Assessment/Plan 1. Acute respiratory failure. 2. Extensive pneumonia, left lung. 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 5. Parkinson's disease. 6. Esophageal dysmotility. 7. Morbid obesity with obesity hypoventilation syndrome. 8. Hypertension w LVH 9. Nephrolithiasis and renal mass. 10. History of breast cancer. add water for high Na weaning parameters better tolerating feedings cont abx, UC e coli s zosyn wean protocol disc w RN echo: Left ventricular ejection fraction estimated to be 70-75 %. Mild left ventricular hypertrophy. No evidence of pericardial effusion. Mild left atrial enlargement. Right atrial size at upper limits of normal. Right ventricular dilated and somewhat hypokinetic Aortic valve calcification with decreased right coronary cusp excursion c/w mild aortic stenosis. Subjective Constitutional: Reports: no symptoms; Denies: fever Respiratory: Denies: shortness of breath Allergies: Coded Allergies: No Known Allergies (Unverified , 01/11/14) Objective Last 24 Hour Vital Signs Date Time Temp Pulse Resp B/P (MAP) Pulse Ox O2 Delivery O2 Flow Rate FiO2 02/17/18 07:04 90 18 97 Mechanical Ventilator 30 02/17/18 07:02 89 18 30 02/17/18 07:00 93 18 110/65 (80) 100 02/17/18 06:00 90 18 109/52 (71) 97 02/17/18 05:12 99 18 30 02/17/18 05:00 97 18 106/57 (73) 99 02/17/18 04:00 98.8 106 24 117/56 (76) 100 98.8 02/17/18 04:00 30 02/17/18 04:00 Mechanical Ventilator 02/17/18 04:00 98 02/17/18 03:40 96 16 100 Mechanical Ventilator 30 02/17/18 03:27 94 17 99 Mechanical Ventilator 30 02/17/18 03:27 93 18 30 02/17/18 03:00 98 18 112/59 (76) 100 02/17/18 02:00 101 18 94/49 (64) 100 02/17/18 01:20 99 15 30 02/17/18 01:14 105 20 Mechanical Ventilator 30 02/17/18 01:00 104 19 115/61 (79) 100 7/25/18 00:00 98.2 106 24 117/56 (76) 100 98.2 02/17/18 00:00 103 02/17/18 00:00 Mechanical Ventilator 02/17/18 00:00 30 02/16/18 23:08 102 20 100 Mechanical Ventilator 30 02/16/18 23:00 105 24 127/59 (81) 97 02/16/18 22:57 112 18 99 Mechanical Ventilator 30 02/16/18 22:55 110 20 30 02/16/18 22:00 100 24 90/49 (63) 97 02/16/18 21:00 100 24 92/48 (63) 100 02/16/18 20:44 107 19 30 02/16/18 20:00 114 02/16/18 20:00 Mechanical Ventilator 02/16/18 20:00 30 02/16/18 20:00 98.8 114 24 124/63 (83) 100 98.8 02/16/18 19:15 105 20 100 Mechanical Ventilator 30 02/16/18 19:05 108 25 30 02/16/18 19:05 108 25 99 Mechanical Ventilator 30 02/16/18 19:00 111 24 128/70 (89) 100 02/16/18 18:00 111 24 112/70 (84) 100 02/16/18 17:00 101 19 100/64 (76) 100 02/16/18 16:48 104 19 30 02/16/18 16:00 113 02/16/18 16:00 30 02/16/18 16:00 Mechanical Ventilator 02/16/18 16:00 98.5 111 16 131/71 (91) 100 98.5 02/16/18 15:47 108 16 100 Mechanical Ventilator 30 02/16/18 15:19 107 16 30 02/16/18 15:14 108 16 98 Mechanical Ventilator 30 02/16/18 15:00 112 24 122/72 (89) 99 02/16/18 14:00 114 24 128/70 (89) 100 02/16/18 13:14 103 19 30 02/16/18 13:00 108 20 107/57 (74) 98 02/16/18 12:00 108 02/16/18 12:00 30 02/16/18 12:00 98.8 115 23 116/60 (78) 99 98.8 02/16/18 12:00 Mechanical Ventilator 02/16/18 11:34 112 21 100 Mechanical Ventilator 30 02/16/18 11:25 112 20 30 02/16/18 11:19 111 16 100 Mechanical Ventilator 30 02/16/18 11:00 114 23 102/60 (74) 98 02/16/18 10:00 114 22 96/52 (67) 97 02/16/18 09:28 112 28 30 02/16/18 09:00 115 25 135/69 (91) 98 Intake and Output 02/16/18 02/17/18 19:00 07:00 Intake Total 1134.167 ml 920.0 ml Output Total 505 ml 435 ml Balance 629.167 ml 485.0 ml Free Water 150 ml IV Total 434.167 ml 110.0 ml Tube Feeding 660 ml 660 ml Other 40 ml Output Urine Total 505 ml 435 ml # Bowel Movements 2 2 Objective morbidly obese General Appearance: no acute distress HEENT: atraumatic Respiratory/Chest: lungs clear Cardiovascular: normal rate Abdomen: soft, non tender Extremities: other - + edema Microbiology Date/Time Source Procedure Growth Status 02/15/18 19:00 Sputum Gram Stain - Final Resulted 02/15/18 19:00 Sputum Sputum Culture Pending Resulted Laboratory Tests 02/16/18 12:10: Vancomycin Level Trough 20.6H 02/16/18 17:50: Stool Occult Blood [Pending] 02/17/18 05:34: White Blood Count 9.0, Red Blood Count 3.34L, Hemoglobin 8.5L, Hematocrit 28.3L , Mean Corpuscular Volume 85, Mean Corpuscular Hemoglobin 25.6L, Mean Corpuscular Hemoglobin Concent 30.3L, Red Cell Distribution Width 14.1, Platelet Count 239, Mean Platelet Volume 5.5L, Neutrophils (%) (Auto) 75.8H, Lymphocytes (%) (Auto) 11.9L, Monocytes (%) (Auto) 8.9, Eosinophils (%) (Auto) 2.7, Basophils (%) (Auto) 0.7, Sodium Level 146H, Potassium Level 3.6, Chloride Level 112H, Carbon Dioxide Level 27, Anion Gap 7, Blood Urea Nitrogen 12, Creatinine 1.1, Estimat Glomerular Filtration Rate , Glucose Level 160H, Calcium Level 8.3L, Total Bilirubin 0.2, Aspartate Amino Transf (AST/SGOT) 14L, Alanine Aminotransferase (ALT/SGPT) 13, Alkaline Phosphatase 97, Total Protein 5.8L, Albumin 1.9L, Globulin 3.9, Albumin/Globulin Ratio 0.5L, Random Vancomycin Level 19.1 Current Medications Medications (Trade) Dose Ordered Sig/Roro Route PRN Reason Start Time Stop Time Status Last Admin Dose Admin Acetaminophen (Tylenol) 650 mg Q4H PRN NG Fever/Headache/Mild Pain 02/12/18 02:45 03/14/18 02:44 02/15/18 11:49 Albuterol/ Ipratropium (Albuterol/ Ipratropium) 3 ml Q4HRT HHN 02/12/18 11:00 02/17/18 10:59 02/17/18 07:04 Bisacodyl (Dulcolax) 10 mg DAILYPRN PRN RECTAL Constipation 02/14/18 19:15 03/16/18 19:14 Carbidopa/Levodopa (Sinemet 25/100) 1 tab THREE TIMES A DAY ORAL 02/12/18 13:00 03/14/18 12:59 02/16/18 18:10 Cinacalcet (Sensipar) 30 mg DAILY ORAL 02/13/18 09:00 03/15/18 08:59 02/16/18 09:35 Insulin Aspart (NovoLOG) 4 units NOVOTIAC SUBQ 02/12/18 11:50 03/14/18 11:49 02/17/18 05:51 Lansoprazole (Prevacid) 30 mg ACBREAKFAST NG 02/12/18 06:30 03/14/18 06:29 02/17/18 05:48 Lorazepam (Ativan 2mg/ml 1ml) 0.5 mg Q4H PRN IV For Anxiety 02/12/18 09:45 02/19/18 09:44 02/16/18 20:30 Ondansetron HCl (Zofran) 4 mg Q4H PRN IVP Nausea & Vomiting 02/13/18 10:30 03/15/18 10:29 02/16/18 18:50 Piperacillin Sod/ Tazobactam Sod 3.375 gm/Dextrose 110 ml @ 27.5 mls/hr EVERY 8 HOURS IVPB 02/12/18 14:00 02/21/18 13:59 02/17/18 05:49 Polyethylene Glycol (Miralax) 17 gm DAILY ORAL 02/15/18 09:00 03/17/18 08:59 02/16/18 09:35 Potassium Chloride (K-Dur) 20 meq TWICE A DAY NGT 02/16/18 10:00 03/18/18 09:59 02/16/18 18:11 Vancomycin HCl (Vanco rx to dose) 1 ea DAILY PRN MISC Per rx protocol 02/12/18 02:45 03/14/18 02:44 Vancomycin/Sodium Chloride 250 ml @ 166.667 mls/hr Q12HR@0800,1999 IVPB 02/17/18 08:00 02/22/18 07:59 Gómez Matos MD Feb 17, 2018 08:45
[2018-02-17] MEDS: Vancomycin 750mg/NS 250ml IVPB SCH ×2 (08:47→20:07)
[2018-02-17] MEDS: Levodopa/Carbidopa 25/100 tab ORAL SCH ×3 (08:48→17:47)
[2018-02-17] MEDS: Miralax 17gm pkt ORAL SCH (08:48)
[2018-02-17] MEDS: Sensipar 30mg Tab ORAL SCH (08:48)
[2018-02-17] MEDS: Acetaminophen 650mg/20.3ml NG PRN ×3 (10:38→20:39)
[2018-02-17] MEDS: LORazepam Inj 2mg/ml 1ml IV PRN (21:45)
[2018-02-18] VITALS (24 sets, daily range): BP systolic 86–162; BP diastolic 45–99
[2018-02-18] MEDS: Piperacillin/Tazobactam 3.375 GM in D5W 110 ML IVPB SCH ×3 (06:16→21:29)
[2018-02-18] MEDS: NovoLOG Insulin Flexpen SUBQ SCH ×3 (06:21→19:50)
[2018-02-18] MEDS: Levodopa/Carbidopa 25/100 tab ORAL SCH ×3 (09:20→17:22)
[2018-02-18] MEDS: Sensipar 30mg Tab ORAL SCH (09:20)
[2018-02-18] MEDS: Miralax 17gm pkt ORAL SCH (09:20)
[2018-02-18] MEDS: Vancomycin 750mg/NS 250ml IVPB SCH (09:20)
[2018-02-18] MEDS: Acetaminophen 650mg/20.3ml NG PRN ×3 (09:21→21:08)
--- NOTE | 2018-02-18 11:29 | Diagnostic Imaging Report ---
Indication: Dyspnea Technique: One view of the chest Comparison: 02/15/2018 Findings: Stable satisfactory position of endotracheal tube. Nasogastric tube again demonstrated, tip position indeterminate. Mediastinal stent again demonstrated. Left pleural effusion and underlying left-sided parenchymal disease persists. Minimal interstitial prominence persists, unchanged Impression: Unchanged, over 3 days, findings as above.
--- NOTE | 2018-02-18 16:10 | Pulmonology Progress Note ---
Assessment/Plan Assessment/Plan 1. Acute respiratory failure. 2. Extensive pneumonia, left lung. 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 5. Parkinson's disease. 6. Esophageal dysmotility. 7. Morbid obesity with obesity hypoventilation syndrome. 8. Hypertension w LVH 9. Nephrolithiasis and renal mass. 10. History of breast cancer. tolerated IMV?PSV x 2 hr only + abd muscle use on AC tolerating feedings UC e coli s zosyn sput c/s GNR, no GPC - dc vanco wean protocol CXR no change lab tomorrow disc w RN Subjective ROS Limited/Unobtainable: Yes Respiratory: Reports: productive cough, shortness of breath Allergies: Coded Allergies: No Known Allergies (Unverified , 01/11/14) Objective Last 24 Hour Vital Signs Date Time Temp Pulse Resp B/P (MAP) Pulse Ox O2 Delivery O2 Flow Rate FiO2 02/18/18 16:00 103 02/18/18 15:16 84 16 30 02/18/18 13:00 104 16 125/67 (86) 97 02/18/18 12:52 87 16 30 02/18/18 12:00 99.3 89 16 122/72 (89) 97 99.3 02/18/18 12:00 Mechanical Ventilator 02/18/18 12:00 90 02/18/18 12:00 30 02/18/18 11:15 86 16 30 02/18/18 11:00 104 17 111/63 (79) 97 02/18/18 10:45 107 16 30 02/18/18 10:00 100 16 130/79 (96) 98 02/18/18 09:15 109 18 30 02/18/18 09:00 108 16 115/61 (79) 98 02/18/18 08:00 Mechanical Ventilator 02/18/18 08:00 111 02/18/18 08:00 30 02/18/18 08:00 98.7 97 16 159/88 (111) 97 98.7 02/18/18 07:30 103 20 30 02/18/18 07:00 101 20 93/49 (64) 99 02/18/18 06:00 91 20 112/49 (70) 99 02/18/18 05:15 95 17 30 02/18/18 05:00 96 22 100/50 (67) 99 02/18/18 04:00 30 02/18/18 04:00 Mechanical Ventilator 02/18/18 04:00 95 02/18/18 04:00 98.3 97 22 86/45 (59) 99 98.3 02/18/18 03:05 103 18 30 02/18/18 03:00 100 22 111/53 (72) 99 02/18/18 02:00 102 22 104/56 (72) 99 02/18/18 01:15 111 23 30 02/18/18 01:00 105 22 118/66 (83) 99 02/18/18 00:00 91 02/18/18 00:00 100 22 105/54 (71) 99 02/18/18 00:00 Mechanical Ventilator 02/18/18 00:00 30 02/17/18 23:11 89 18 30 02/17/18 23:00 100 22 110/58 (75) 99 02/17/18 22:00 100 22 100/54 (69) 99 02/17/18 21:10 102 20 30 02/17/18 21:00 100 22 93/49 (64) 99 02/17/18 20:00 30 02/17/18 20:00 Mechanical Ventilator 02/17/18 20:00 98.2 100 22 102/59 (73) 99 98.2 02/17/18 20:00 104 02/17/18 19:28 105 20 30 02/17/18 19:00 100 22 135/58 (83) 99 02/17/18 18:00 97 20 93/43 (60) 99 02/17/18 17:19 110 22 30 02/17/18 17:01 97.8 02/17/18 17:00 104 24 159/82 (107) 99 02/17/18 16:31 97.8 Intake and Output 02/17/18 02/18/18 19:00 07:00 Intake Total 1430.0 ml 1297.500 ml Output Total 1450 ml 1650 ml Balance -20.0 ml -352.500 ml Free Water 250 ml 150 ml IV Total 440.0 ml 387.500 ml Tube Feeding 660 ml 660 ml Other 80 ml 100 ml Output Urine Total 1450 ml 1650 ml # Bowel Movements 1 Objective morbidly obese General Appearance: no acute distress Respiratory/Chest: decreased breath sounds, accessory muscle use Cardiovascular: normal rate, tachycardia Microbiology Date/Time Source Procedure Growth Status 02/15/18 19:00 Sputum Gram Stain - Final Resulted 02/15/18 19:00 Sputum Culture - Preliminary Gram Negative Bacillus 1 Resulted Current Medications Medications (Trade) Dose Ordered Sig/Roro Route PRN Reason Start Time Stop Time Status Last Admin Dose Admin Acetaminophen (Tylenol) 650 mg Q4H PRN NG Fever/Headache/Mild Pain 02/12/18 02:45 03/14/18 02:44 02/18/18 14:56 Bisacodyl (Dulcolax) 10 mg DAILYPRN PRN RECTAL Constipation 02/14/18 19:15 03/16/18 19:14 Carbidopa/Levodopa (Sinemet 25/100) 1 tab THREE TIMES A DAY ORAL 02/12/18 13:00 03/14/18 12:59 02/18/18 13:21 Cinacalcet (Sensipar) 30 mg DAILY ORAL 02/13/18 09:00 03/15/18 08:59 02/18/18 09:20 Insulin Aspart (NovoLOG) 4 units NOVOTIAC SUBQ 02/12/18 11:50 03/14/18 11:49 02/18/18 13:24 Lansoprazole (Prevacid) 30 mg ACBREAKFAST NG 02/12/18 06:30 03/14/18 06:29 02/18/18 06:16 Lorazepam (Ativan 2mg/ml 1ml) 0.5 mg Q4H PRN IV For Anxiety 02/12/18 09:45 02/19/18 09:44 02/17/18 21:45 Ondansetron HCl (Zofran) 4 mg Q4H PRN IVP Nausea & Vomiting 02/13/18 10:30 03/15/18 10:29 02/18/18 02:55 Piperacillin Sod/ Tazobactam Sod 3.375 gm/Dextrose 110 ml @ 27.5 mls/hr EVERY 8 HOURS IVPB 02/12/18 14:00 02/21/18 13:59 02/18/18 13:21 Polyethylene Glycol (Miralax) 17 gm DAILY ORAL 02/15/18 09:00 03/17/18 08:59 02/18/18 09:20 Potassium Chloride (K-Dur) 20 meq TWICE A DAY NGT 02/16/18 10:00 03/18/18 09:59 02/18/18 09:20 Vancomycin HCl (Vanco rx to dose) 1 ea DAILY PRN MISC Per rx protocol 02/12/18 02:45 03/14/18 02:44 Vancomycin/Sodium Chloride 250 ml @ 166.667 mls/hr Q12HR@0800,2000 IVPB 02/17/18 08:00 02/22/18 07:59 02/18/18 09:20 Gómez Matos MD Feb 18, 2018 16:10
[2018-02-18] MEDS: LORazepam Inj 2mg/ml 1ml IV PRN ×2 (17:20→21:29)
[2018-02-19] VITALS (24 sets, daily range): BP systolic 93–160; BP diastolic 50–99
[2018-02-19] MEDS: LORazepam Inj 2mg/ml 1ml IV PRN (02:07)
[2018-02-19 05:38] LABS: BASOPHILS % (AUTO) 0.5 % (0.0-2.0); HEMATOCRIT 28.5 % (37.0-47.0); HEMOGLOBIN 8.9 G/DL (12.0-16.0); LYMPHOCYTES % (AUTO) 13.5 % (20.0-45.0); MEAN CORPUSCULAR VOLUME 85 FL (80-99); MONOCYTES % (AUTO) 7.4 % (1.0-10.0); NEUTROPHILS % (AUTO) 74.6 % (45.0-75.0); PLATELET COUNT 289 K/UL (150-450); RED BLOOD COUNT 3.37 M/UL (4.20-5.40); RED CELL DISTRIBUTION WIDTH 14.4 % (11.6-14.8)
[2018-02-19 05:45] LABS: ANION GAP 6 mmol/L (5-15); BLOOD UREA NITROGEN 13 mg/dL (7-18); CALCIUM 9.1 MG/DL (8.5-10.1); CARBON DIOXIDE 27 MMOL/L (21-32); CHLORIDE 110 MMOL/L (98-107); CREATININE 1.1 MG/DL (0.55-1.30); POTASSIUM 3.9 MMOL/L (3.5-5.1); SODIUM 143 MMOL/L (136-145)
[2018-02-19] MEDS: Piperacillin/Tazobactam 3.375 GM in D5W 110 ML IVPB SCH ×3 (05:50→21:51)
[2018-02-19] MEDS: Acetaminophen 650mg/20.3ml NG PRN ×3 (05:50→22:14)
[2018-02-19] MEDS: NovoLOG Insulin Flexpen SUBQ SCH ×3 (05:51→18:51)
--- NOTE | 2018-02-19 08:26 | Diagnostic Imaging Report ---
Indication: Post nasogastric tube placement Technique: Supine view of the upper abdomen Comparison: none Findings: Single view of the upper abdomen demonstrates a nasogastric tube, tip which projects at the level gastric antrum, in good position. There is thoracolumbar scoliotic deformity. Grossly unremarkable bowel gas pattern Impression: Satisfactory nasogastric tube placement This agrees with the preliminary interpretation provided overnight by [facility] teleradiology service.
[2018-02-19] MEDS: Miralax 17gm pkt ORAL SCH (09:00)
--- NOTE | 2018-02-19 09:14 | Pulmonology Progress Note ---
Assessment/Plan Assessment/Plan 1. Acute respiratory failure. 2. Extensive pneumonia, left lung. 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 5. Parkinson's disease. 6. Esophageal dysmotility. 7. Morbid obesity with obesity hypoventilation syndrome. 8. Hypertension w LVH 9. Nephrolithiasis and renal mass. 10. History of breast cancer. trial weaning today tolerating feedings, good output sput c/s Pseudomonas S all lab reviewed disc w RN Subjective ROS Limited/Unobtainable: Yes Allergies: Coded Allergies: No Known Allergies (Unverified , 01/11/14) Objective Last 24 Hour Vital Signs Date Time Temp Pulse Resp B/P (MAP) Pulse Ox O2 Delivery O2 Flow Rate FiO2 02/19/18 07:00 98.6 89 17 118/66 (83) 98 98.6 02/19/18 06:00 88 19 158/83 (108) 97 02/19/18 05:30 102 17 30 02/19/18 05:00 100 20 151/72 (98) 98 02/19/18 04:00 87 02/19/18 04:00 30 02/19/18 04:00 Mechanical Ventilator 02/19/18 04:00 95 17 141/88 (105) 98 02/19/18 03:00 86 16 30 02/19/18 03:00 98.3 93 17 141/88 (105) 98 98.3 02/19/18 02:00 86 17 146/99 (115) 96 02/19/18 01:00 96 17 134/81 (98) 98 02/19/18 01:00 90 18 30 02/19/18 00:00 Mechanical Ventilator 02/19/18 00:00 87 18 122/77 (92) 98 02/19/18 00:00 30 02/19/18 00:00 95 02/18/18 23:00 98.1 91 18 122/77 (92) 98 98.1 02/18/18 22:55 98 17 30 02/18/18 22:00 92 16 135/99 (111) 97 02/18/18 21:11 104 22 30 02/18/18 21:00 101 17 104/65 (78) 97 02/18/18 20:00 100 18 162/72 (102) 98 02/18/18 20:00 30 02/18/18 20:00 Mechanical Ventilator 02/18/18 19:00 98.3 90 16 142/96 (111) 97 98.3 02/18/18 18:50 90 16 30 02/18/18 18:00 95 18 120/72 (88) 97 02/18/18 17:00 99 17 147/89 (108) 97 02/18/18 16:39 92 16 30 02/18/18 16:00 103 02/18/18 16:00 30 02/18/18 16:00 Mechanical Ventilator 02/18/18 16:00 98.3 101 25 137/75 (95) 97 98.3 02/18/18 15:16 84 16 30 02/18/18 15:00 105 23 142/92 (109) 97 02/18/18 14:00 90 23 143/92 (109) 97 02/18/18 13:00 104 16 125/67 (86) 97 02/18/18 12:52 87 16 30 02/18/18 12:00 99.3 89 16 122/72 (89) 97 99.3 02/18/18 12:00 Mechanical Ventilator 02/18/18 12:00 90 02/18/18 12:00 30 02/18/18 11:15 86 16 30 02/18/18 11:00 104 17 111/63 (79) 97 02/18/18 10:45 107 16 30 02/18/18 10:00 100 16 130/79 (96) 98 02/18/18 09:15 109 18 30 Intake and Output 02/18/18 02/19/18 19:00 07:00 Intake Total 655 ml 857.5 ml Output Total 1285 ml 820 ml Balance -630 ml 37.5 ml Free Water 160 ml IV Total 137.5 ml Tube Feeding 495 ml 660 ml Other 60 ml Output Urine Total 1285 ml 820 ml # Bowel Movements 1 3 Objective morbidly obese General Appearance: no acute distress HEENT: atraumatic Respiratory/Chest: lungs clear Cardiovascular: normal rate Laboratory Tests 02/19/18 05:08: White Blood Count 10.0, Red Blood Count 3.37L, Hemoglobin 8.9L, Hematocrit 28.5L , Mean Corpuscular Volume 85, Mean Corpuscular Hemoglobin 26.3L, Mean Corpuscular Hemoglobin Concent 31.1L, Red Cell Distribution Width 14.4, Platelet Count 289, Mean Platelet Volume 5.6L, Neutrophils (%) (Auto) 74.6, Lymphocytes (%) (Auto) 13.5L, Monocytes (%) (Auto) 7.4, Eosinophils (%) (Auto) 4.0H, Basophils (%) (Auto) 0.5, Sodium Level 143, Potassium Level 3.9, Chloride Level 110H, Carbon Dioxide Level 27, Anion Gap 6, Blood Urea Nitrogen 13, Creatinine 1.1, Estimat Glomerular Filtration Rate , Glucose Level 169H, Calcium Level 9.1 Current Medications Medications (Trade) Dose Ordered Sig/Roro Route PRN Reason Start Time Stop Time Status Last Admin Dose Admin Acetaminophen (Tylenol) 650 mg Q4H PRN NG Fever/Headache/Mild Pain 02/12/18 02:45 03/14/18 02:44 02/19/18 05:50 Bisacodyl (Dulcolax) 10 mg DAILYPRN PRN RECTAL Constipation 02/14/18 19:15 03/16/18 19:14 Carbidopa/Levodopa (Sinemet 25/100) 1 tab THREE TIMES A DAY ORAL 02/12/18 13:00 03/14/18 12:59 02/18/18 17:22 Cinacalcet (Sensipar) 30 mg DAILY ORAL 02/13/18 09:00 03/15/18 08:59 02/18/18 09:20 Insulin Aspart (NovoLOG) 4 units NOVOTIAC SUBQ 02/12/18 11:50 03/14/18 11:49 02/19/18 05:51 Lansoprazole (Prevacid) 30 mg ACBREAKFAST NG 02/12/18 06:30 03/14/18 06:29 02/19/18 05:50 Lorazepam (Ativan 2mg/ml 1ml) 0.5 mg Q4H PRN IV For Anxiety 02/12/18 09:45 02/19/18 09:44 02/19/18 02:07 Ondansetron HCl (Zofran) 4 mg Q4H PRN IVP Nausea & Vomiting 02/13/18 10:30 03/15/18 10:29 02/18/18 02:55 Piperacillin Sod/ Tazobactam Sod 3.375 gm/Dextrose 110 ml @ 27.5 mls/hr EVERY 8 HOURS IVPB 02/12/18 14:00 02/21/18 13:59 02/19/18 05:50 Polyethylene Glycol (Miralax) 17 gm DAILY ORAL 02/15/18 09:00 03/17/18 08:59 02/18/18 09:20 Potassium Chloride (K-Dur) 20 meq TWICE A DAY NGT 02/16/18 10:00 03/18/18 09:59 02/18/18 17:21 Gómez Matos MD Feb 19, 2018 09:14
[2018-02-19] MEDS: Sensipar 30mg Tab ORAL SCH (09:36)
[2018-02-19] MEDS: Levodopa/Carbidopa 25/100 tab ORAL SCH ×3 (09:36→18:52)
[2018-02-20] VITALS (24 sets, daily range): BP systolic 97–166; BP diastolic 56–95
[2018-02-20] MEDS: Acetaminophen 650mg/20.3ml NG PRN ×3 (04:47→20:45)
[2018-02-20] MEDS: Piperacillin/Tazobactam 3.375 GM in D5W 110 ML IVPB SCH ×3 (05:35→22:01)
[2018-02-20] MEDS: NovoLOG Insulin Flexpen SUBQ SCH ×3 (06:13→17:23)
[2018-02-20 08:05] LABS: BASOPHILS % (AUTO) 0.6 % (0.0-2.0); EOSINOPHILS % (AUTO) 5.4 % (0.0-3.0); HEMOGLOBIN 8.6 G/DL (12.0-16.0); LYMPHOCYTES % (AUTO) 13.3 % (20.0-45.0); MEAN CORPUSCULAR VOLUME 85 FL (80-99); MONOCYTES % (AUTO) 6.8 % (1.0-10.0); PLATELET COUNT 279 K/UL (150-450); RED BLOOD COUNT 3.18 M/UL (4.20-5.40); RED CELL DISTRIBUTION WIDTH 14.3 % (11.6-14.8); WHITE BLOOD COUNT 8.5 K/UL (4.8-10.8)
[2018-02-20] MEDS: Sensipar 30mg Tab ORAL SCH (08:23)
[2018-02-20] MEDS: Levodopa/Carbidopa 25/100 tab ORAL SCH ×3 (08:24→17:19)
[2018-02-20] MEDS: Miralax 17gm pkt ORAL SCH ×2 (08:24→08:32)
[2018-02-20 08:41] LABS: ANION GAP 7 mmol/L (5-15); BLOOD UREA NITROGEN 23 mg/dL (7-18); CALCIUM 9.6 MG/DL (8.5-10.1); CARBON DIOXIDE 28 MMOL/L (21-32); CHLORIDE 110 MMOL/L (98-107); SODIUM 144 MMOL/L (136-145)
[2018-02-20] MEDS ORDERED: NS 275ml ONE (15:34)
--- NOTE | 2018-02-20 19:21 | Pulmonolgy Critical Care Note ---
Critical Care - Asmt/Plan Assessment/Plan: 1. Acute respiratory failure. 2. Extensive pneumonia, left lung. 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 5. Parkinson's disease. 6. Esophageal dysmotility. 7. Morbid obesity with obesity hypoventilation syndrome. 8. Hypertension. Currently normotensive. 9. Nephrolithiasis and renal mass. 10. History of breast cancer. 11. GN UTI PLAN fu cultures labs in am, replace lytes check RSBI daily and weaning if less than 105, bid cxr in am pressors for MAP less than 65 mmhg nebs wound care Nutrition improved today, continue ICU 35 min of CCT spent with pt, reviewing chart discussing plan with nursing. 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 Critical Care - Objective Last 24 Hour Vital Signs Date Time Temp Pulse Resp B/P (MAP) Pulse Ox O2 Delivery O2 Flow Rate FiO2 02/20/18 18:00 94 20 155/80 (105) 100 02/20/18 17:00 97.8 103 20 155/80 (105) 100 97.8 02/20/18 16:44 102 22 30 02/20/18 16:00 103 20 141/85 (103) 100 02/20/18 16:00 100 02/20/18 16:00 30 02/20/18 16:00 Mechanical Ventilator 02/20/18 15:12 105 18 30 02/20/18 15:00 103 20 166/95 (118) 100 02/20/18 14:00 104 21 151/89 (109) 97 02/20/18 13:00 107 21 150/81 (104) 98 02/20/18 12:40 104 24 30 02/20/18 12:09 100 02/20/18 12:00 97.5 104 25 133/77 (95) 97 97.5 02/20/18 12:00 97 02/20/18 12:00 Mechanical Ventilator 02/20/18 11:30 30 02/20/18 11:00 104 26 155/79 (104) 98 02/20/18 10:00 98 24 148/74 (98) 98 02/20/18 09:10 86 18 30 02/20/18 09:00 101 25 134/66 (88) 98 02/20/18 08:00 30 02/20/18 08:00 91 02/20/18 08:00 Mechanical Ventilator 02/20/18 08:00 97.5 83 19 144/88 (106) 99 97.5 02/20/18 07:00 82 22 134/66 (88) 94 02/20/18 06:55 83 16 30 02/20/18 06:00 102 22 139/72 (94) 98 02/20/18 05:00 98 22 133/77 (95) 98 02/20/18 04:45 109 22 30 02/20/18 04:00 97.4 101 21 113/65 (81) 99 97.4 02/20/18 04:00 Mechanical Ventilator 02/20/18 04:00 30 02/20/18 03:20 83 02/20/18 03:09 84 17 30 02/20/18 03:00 86 16 97/56 (70) 98 02/20/18 02:00 89 17 100/67 (78) 97 02/20/18 01:00 95 18 101/58 (72) 97 02/20/18 00:42 92 19 30 02/20/18 00:00 30 02/20/18 00:00 97.3 92 18 111/56 (74) 97 97.3 02/20/18 00:00 Mechanical Ventilator 02/19/18 23:01 97 02/19/18 23:00 96 18 95/53 (67) 100 02/19/18 22:40 100 19 30 02/19/18 22:00 100 21 93/55 (68) 100 02/19/18 21:03 100 19 30 02/19/18 21:00 101 23 104/57 (73) 98 02/19/18 20:00 97.8 100 19 114/54 (74) 97 97.8 02/19/18 20:00 Mechanical Ventilator 02/19/18 20:00 30 Status: awake Lungs: rhonchi Heart: HR/BP stable Abdomen: soft, non-tender Extremities: edema Decubiti: location Accucheck: 164 Blood Sugars: BS not controlled Critical Care - Subjective ROS Limited/Unobtainable: Yes Condition: critical FI02: 30 Vent Support Breath Rate: 16 Vent Support Mode: AC Vent Tidal Volume: 500 Sputum Amount: Moderate PEEP: 5.0 PIP: 49 Tube Feeding Amount: 55 I&O: Intake and Output 02/19/18 02/20/18 19:00 07:00 Intake Total 838.75 ml 1036.0 ml Output Total 870 ml 1065 ml Balance -31.25 ml -29.0 ml IV Total 178.75 ml 151.0 ml Tube Feeding 660 ml 715 ml Other 170 ml Output Urine Total 870 ml 1065 ml # Bowel Movements 6 2 Subjective: orally intubated unable to tolerate weaning 45 mintues today on the vent positive secretions, purulent, continues no cp nv or bleeding positive uop increased rhonchi awake communicatign with family CXR: no new cxr 02/18 reviewed ET-Tube: 7.5 ET Position: 23 Labs: Current Medications Medications (Trade) Dose Ordered Sig/Roro Route PRN Reason Start Time Stop Time Status Last Admin Dose Admin Acetaminophen (Tylenol) 650 mg Q4H PRN NG Fever/Headache/Mild Pain 02/12/18 02:45 03/14/18 02:44 02/20/18 10:09 Bisacodyl (Dulcolax) 10 mg DAILYPRN PRN RECTAL Constipation 02/14/18 19:15 03/16/18 19:14 Carbidopa/Levodopa (Sinemet 25/100) 1 tab THREE TIMES A DAY ORAL 02/12/18 13:00 03/14/18 12:59 02/20/18 17:19 Cinacalcet (Sensipar) 30 mg DAILY ORAL 02/13/18 09:00 03/15/18 08:59 02/20/18 08:23 Insulin Aspart (NovoLOG) 4 units NOVOTIAC SUBQ 02/12/18 11:50 03/14/18 11:49 02/20/18 17:23 Lansoprazole (Prevacid) 30 mg ACBREAKFAST NG 02/12/18 06:30 03/14/18 06:29 02/20/18 05:35 Ondansetron HCl (Zofran) 4 mg Q4H PRN IVP Nausea & Vomiting 02/13/18 10:30 03/15/18 10:29 02/20/18 19:02 Piperacillin Sod/ Tazobactam Sod 3.375 gm/Dextrose 110 ml @ 27.5 mls/hr EVERY 8 HOURS IVPB 02/12/18 14:00 02/21/18 13:59 02/20/18 13:41 Polyethylene Glycol (Miralax) 17 gm DAILY ORAL 02/15/18 09:00 03/17/18 08:59 02/18/18 09:20 Potassium Chloride (K-Dur) 20 meq TWICE A DAY NGT 02/16/18 10:00 03/18/18 09:59 02/20/18 17:18 Laboratory Tests Test 02/20/18 07:35 White Blood Count 8.5 K/UL (4.8-10.8) Red Blood Count 3.18 M/UL (4.20-5.40) L Hemoglobin 8.6 G/DL (12.0-16.0) L Hematocrit 27.0 % (37.0-47.0) L Mean Corpuscular Volume 85 FL (80-99) Mean Corpuscular Hemoglobin 27.0 PG (27.0-31.0) Mean Corpuscular Hemoglobin Concent 31.9 G/DL (32.0-36.0) L Red Cell Distribution Width 14.3 % (11.6-14.8) Platelet Count 279 K/UL (150-450) Mean Platelet Volume 5.5 FL (6.5-10.1) L Neutrophils (%) (Auto) 74.0 % (45.0-75.0) Lymphocytes (%) (Auto) 13.3 % (20.0-45.0) L Monocytes (%) (Auto) 6.8 % (1.0-10.0) Eosinophils (%) (Auto) 5.4 % (0.0-3.0) H Basophils (%) (Auto) 0.6 % (0.0-2.0) Sodium Level 144 MMOL/L (136-145) Potassium Level 4.0 MMOL/L (3.5-5.1) Chloride Level 110 MMOL/L (98-107) H Carbon Dioxide Level 28 MMOL/L (21-32) Anion Gap 7 mmol/L (5-15) Blood Urea Nitrogen 23 mg/dL (7-18) H Creatinine 1.0 MG/DL (0.55-1.30) Estimat Glomerular Filtration Rate mL/min (>60) Glucose Level 139 MG/DL (74-106) H Calcium Level 9.6 MG/DL (8.5-10.1) Rosa Darling DO Feb 20, 2018 19:21
[2018-02-20] MEDS ORDERED: Miralax 17gm pkt ORAL PRN (20:00)
[2018-02-21] VITALS (24 sets, daily range): BP systolic 102–177; BP diastolic 71–115
[2018-02-21 05:21] LABS: BASOPHILS % (AUTO) 0.5 % (0.0-2.0); EOSINOPHILS % (AUTO) 3.7 % (0.0-3.0); HEMATOCRIT 28.8 % (37.0-47.0); LYMPHOCYTES % (AUTO) 13.3 % (20.0-45.0); MEAN CORPUSCULAR VOLUME 84 FL (80-99); MONOCYTES % (AUTO) 6.9 % (1.0-10.0); NEUTROPHILS % (AUTO) 75.5 % (45.0-75.0); PLATELET COUNT 298 K/UL (150-450); RED BLOOD COUNT 3.42 M/UL (4.20-5.40); RED CELL DISTRIBUTION WIDTH 14.5 % (11.6-14.8); WHITE BLOOD COUNT 9.2 K/UL (4.8-10.8)
[2018-02-21 05:37] LABS: ANION GAP 6 mmol/L (5-15); BLOOD UREA NITROGEN 21 mg/dL (7-18); CALCIUM 10.2 MG/DL (8.5-10.1); CARBON DIOXIDE 29 MMOL/L (21-32); CHLORIDE 108 MMOL/L (98-107); POTASSIUM 4.2 MMOL/L (3.5-5.1); SODIUM 143 MMOL/L (136-145)
[2018-02-21] MEDS: Piperacillin/Tazobactam 3.375 GM in D5W 110 ML IVPB SCH ×3 (05:52→21:48)
[2018-02-21] MEDS: NovoLOG Insulin Flexpen SUBQ SCH ×3 (05:54→17:57)
[2018-02-21] MEDS: Levodopa/Carbidopa 25/100 tab ORAL SCH ×3 (08:46→18:07)
[2018-02-21] MEDS: Sensipar 30mg Tab ORAL SCH (08:46)
--- NOTE | 2018-02-21 09:52 | Diagnostic Imaging Report ---
EXAM: XR Chest, 1 View CLINICAL HISTORY: COPD TECHNIQUE: Frontal view of the chest. COMPARISON: Chest x-ray 02/18/18 809 FINDINGS: Lungs: Increased bilateral interstitial thickening. Increasing right lower lobe airspace disease. Slightly improved left lower lung opacities. Pleural space: Probable small left pleural effusion has improved. No pneumothorax. Heart: Unremarkable. No cardiomegaly. Mediastinum: Stable mediastinal stent. Bones/joints: Unremarkable. IMPRESSION: 1. Increased bilateral interstitial thickening. Increasing right lower lobe airspace disease. Slightly improved left lower lung opacities. 2. Probable small left pleural effusion has improved.
[2018-02-21] MEDS: Acetaminophen 650mg/20.3ml NG PRN ×2 (10:54→18:07)
[2018-02-21] MEDS ORDERED: Tubing IV Secondary IV ONE (16:04)
--- NOTE | 2018-02-21 16:13 | Pulmonolgy Critical Care Note ---
Critical Care - Asmt/Plan Assessment/Plan: 1. Acute respiratory failure. 2. Extensive pneumonia, left lung. 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 5. Parkinson's disease. 6. Esophageal dysmotility. 7. Morbid obesity with obesity hypoventilation syndrome. 8. Hypertension. Currently normotensive. 9. Nephrolithiasis and renal mass. 10. History of breast cancer. 11. UTI 12. diarrhea PLAN fu cultures, check stool c diff strat flagyl labs in am, replace lytes check RSBI daily and weaning if less than 105, bid cxr in am pressors for MAP less than 65 mmhg nebs wound care Nutrition improved today, continue ICU 35 min of CCT spent with pt, reviewing chart discussing plan with nursing. 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 Critical Care - Objective Last 24 Hour Vital Signs Date Time Temp Pulse Resp B/P (MAP) Pulse Ox O2 Delivery O2 Flow Rate FiO2 02/21/18 15:09 106 26 30 02/21/18 15:00 103 16 156/97 (116) 100 02/21/18 14:00 98.7 105 16 102/76 (85) 100 98.7 02/21/18 13:00 95 16 115/84 (94) 98 02/21/18 12:39 112 24 30 02/21/18 12:00 107 02/21/18 12:00 109 22 148/113 (125) 98 02/21/18 11:00 106 25 169/103 (125) 98 02/21/18 10:45 182/109 02/21/18 10:40 105 31 30 02/21/18 10:00 109 26 167/95 (119) 96 02/21/18 09:19 99 02/21/18 09:14 111 28 30 02/21/18 09:00 110 25 170/108 (128) 99 02/21/18 08:00 106 20 177/115 (135) 99 02/21/18 08:00 Mechanical Ventilator 02/21/18 08:00 111 02/21/18 07:21 117 26 30 02/21/18 07:00 92 16 161/80 (107) 95 02/21/18 06:00 91 16 135/84 (101) 95 02/21/18 05:12 88 16 30 02/21/18 05:00 89 16 145/71 (95) 91 02/21/18 04:00 30 02/21/18 04:00 Mechanical Ventilator 02/21/18 04:00 100 02/21/18 04:00 98.6 105 20 155/80 (105) 100 98.6 02/21/18 03:30 101 21 30 02/21/18 03:00 99 18 136/86 (103) 97 02/21/18 02:00 101 21 144/82 (102) 99 02/21/18 01:30 104 22 30 02/21/18 01:00 92 17 150/95 (113) 97 02/21/18 00:00 30 02/21/18 00:00 Mechanical Ventilator 02/21/18 00:00 103 02/21/18 00:00 99.1 105 20 155/80 (105) 100 99.1 02/20/18 23:12 106 22 30 02/20/18 23:00 102 22 157/93 (114) 99 02/20/18 22:00 101 20 152/78 (102) 98 02/20/18 21:30 101 21 30 02/20/18 21:00 103 22 148/84 (105) 99 02/20/18 20:00 30 02/20/18 20:00 103 02/20/18 20:00 Mechanical Ventilator 02/20/18 20:00 103 21 148/73 (98) 98 02/20/18 19:30 102 22 30 02/20/18 19:00 98.9 105 20 155/80 (105) 100 98.9 02/20/18 18:00 94 20 155/80 (105) 100 02/20/18 17:00 97.8 103 20 155/80 (105) 100 97.8 02/20/18 16:44 102 22 30 Status: awake Condition: improving Lungs: rhonchi Heart: HR/BP stable Abdomen: soft, non-tender Extremities: edema Accucheck: 179 Critical Care - Subjective ROS Limited/Unobtainable: Yes Condition: improving FI02: 30 Vent Support Breath Rate: 16 Vent Support Mode: AC Vent Tidal Volume: 500 Sputum Amount: Moderate PEEP: 5.0 PIP: 32 Tube Feeding Amount: 55 I&O: Intake and Output 02/20/18 02/21/18 19:00 07:00 Intake Total 1019.0 ml 780 ml Output Total 1575 ml 1260 ml Balance -556.0 ml -480 ml Free Water 120 ml IV Total 179.0 ml Tube Feeding 660 ml 660 ml Other 60 ml 120 ml Output Urine Total 1575 ml 1260 ml # Bowel Movements 2 2 Subjective: orally intubated weaned for 3 hours today then became shortness of breath and tired on the vent positive secretions, purulent, continues no cp nv or bleeding very large liquid bm concerns for c diff positive uop increased rhonchi awake communicating CXR: right chest on xray improved today ET-Tube: 7.5 ET Position: 23 Labs: Current Medications Medications (Trade) Dose Ordered Sig/Roro Route PRN Reason Start Time Stop Time Status Last Admin Dose Admin Acetaminophen (Tylenol) 650 mg Q4H PRN NG Fever/Headache/Mild Pain 02/12/18 02:45 03/14/18 02:44 02/21/18 10:54 Bisacodyl (Dulcolax) 10 mg DAILYPRN PRN RECTAL Constipation 02/20/18 20:15 03/16/18 19:14 Carbidopa/Levodopa (Sinemet 25/100) 1 tab THREE TIMES A DAY ORAL 02/12/18 13:00 03/14/18 12:59 02/21/18 12:55 Cinacalcet (Sensipar) 30 mg DAILY ORAL 02/13/18 09:00 03/15/18 08:59 02/21/18 08:46 Clonidine HCl (Catapres Tab) 0.1 mg Q4H PRN ORAL For SBP>170 02/21/18 09:30 03/23/18 09:29 02/21/18 10:45 Insulin Aspart (NovoLOG) 4 units NOVOTIAC SUBQ 02/12/18 11:50 03/14/18 11:49 02/21/18 12:58 Lansoprazole (Prevacid) 30 mg ACBREAKFAST NG 02/12/18 06:30 03/14/18 06:29 02/21/18 05:52 Ondansetron HCl (Zofran) 4 mg Q4H PRN IVP Nausea & Vomiting 02/13/18 10:30 03/15/18 10:29 02/20/18 19:02 Piperacillin Sod/ Tazobactam Sod 3.375 gm/Dextrose 110 ml @ 27.5 mls/hr EVERY 8 HOURS IVPB 02/12/18 14:00 02/25/18 13:59 02/21/18 14:28 Polyethylene Glycol (Miralax) 17 gm DAILYPRN PRN ORAL Constipation 02/20/18 20:00 03/22/18 19:59 Potassium Chloride (K-Dur) 20 meq TWICE A DAY NGT 02/16/18 10:00 03/18/18 09:59 02/21/18 08:47 Laboratory Tests Test 02/21/18 04:35 White Blood Count 9.2 K/UL (4.8-10.8) Red Blood Count 3.42 M/UL (4.20-5.40) L Hemoglobin 9.0 G/DL (12.0-16.0) L Hematocrit 28.8 % (37.0-47.0) L Mean Corpuscular Volume 84 FL (80-99) Mean Corpuscular Hemoglobin 26.4 PG (27.0-31.0) L Mean Corpuscular Hemoglobin Concent 31.3 G/DL (32.0-36.0) L Red Cell Distribution Width 14.5 % (11.6-14.8) Platelet Count 298 K/UL (150-450) Mean Platelet Volume 5.5 FL (6.5-10.1) L Neutrophils (%) (Auto) 75.5 % (45.0-75.0) H Lymphocytes (%) (Auto) 13.3 % (20.0-45.0) L Monocytes (%) (Auto) 6.9 % (1.0-10.0) Eosinophils (%) (Auto) 3.7 % (0.0-3.0) H Basophils (%) (Auto) 0.5 % (0.0-2.0) Sodium Level 143 MMOL/L (136-145) Potassium Level 4.2 MMOL/L (3.5-5.1) Chloride Level 108 MMOL/L (98-107) H Carbon Dioxide Level 29 MMOL/L (21-32) Anion Gap 6 mmol/L (5-15) Blood Urea Nitrogen 21 mg/dL (7-18) H Creatinine 1.0 MG/DL (0.55-1.30) Estimat Glomerular Filtration Rate mL/min (>60) Glucose Level 146 MG/DL (74-106) H Calcium Level 10.2 MG/DL (8.5-10.1) H Rosa Darling DO Feb 21, 2018 16:13
[2018-02-21] MEDS ORDERED: metroNIDAZOLE 500mg tab ORAL SCH (17:00)
[2018-02-21] MEDS: Albuterol/Ipratropium 3ml neb HHN SCH ×2 (20:26→23:45)
[2018-02-21] MEDS: metroNIDAZOLE 500mg tab ORAL SCH (21:48)
[2018-02-21] MEDS: Acetylcysteine 20% Soln 4ml HHN SCH (23:45)
[2018-02-22] VITALS (24 sets, daily range): BP systolic 100–166; BP diastolic 62–101
[2018-02-22] MEDS: Acetylcysteine 20% Soln 4ml HHN SCH ×6 (03:36→23:49)
[2018-02-22] MEDS: Albuterol/Ipratropium 3ml neb HHN SCH ×6 (03:36→23:49)
[2018-02-22] MEDS: metroNIDAZOLE 500mg tab ORAL SCH ×3 (05:44→22:03)
[2018-02-22] MEDS: Piperacillin/Tazobactam 3.375 GM in D5W 110 ML IVPB SCH ×3 (05:49→22:03)
[2018-02-22] MEDS: NovoLOG Insulin Flexpen SUBQ SCH ×3 (06:40→16:25)
[2018-02-22] MEDS: Sensipar 30mg Tab ORAL SCH (08:16)
[2018-02-22] MEDS: Levodopa/Carbidopa 25/100 tab ORAL SCH ×3 (08:16→18:59)
[2018-02-22] MEDS: Acetaminophen 650mg/20.3ml NG PRN ×2 (09:51→15:18)
--- NOTE | 2018-02-22 16:52 | Pulmonology Progress Note ---
Assessment/Plan Assessment/Plan 1. Acute respiratory failure. 2. Extensive pneumonia, left lung. 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 5. Parkinson's disease. 6. Esophageal dysmotility. 7. Morbid obesity with obesity hypoventilation syndrome. 8. Hypertension w LVH 9. Nephrolithiasis and renal mass. 10. History of breast cancer. more alert, using letter board trial weaning bid tolerating feedings, good output cont abx lab reviewed disc w RN Subjective Constitutional: Denies: fever, chills Respiratory: Denies: shortness of breath Gastrointestinal/Abdominal: Denies: vomiting Allergies: Coded Allergies: No Known Allergies (Unverified , 01/11/14) Objective Last 24 Hour Vital Signs Date Time Temp Pulse Resp B/P (MAP) Pulse Ox O2 Delivery O2 Flow Rate FiO2 02/22/18 16:00 30 02/22/18 15:48 98.3 02/22/18 15:11 106 16 100 Mechanical Ventilator 30 02/22/18 15:11 105 16 30 02/22/18 15:00 105 16 99 Mechanical Ventilator 30 02/22/18 14:00 105 25 143/91 (108) 100 02/22/18 13:50 30 02/22/18 13:00 105 25 129/87 (101) 100 02/22/18 12:22 105 23 30 02/22/18 12:00 97.8 107 17 126/85 (99) 98 97.8 02/22/18 12:00 103 02/22/18 12:00 30 02/22/18 12:00 Mechanical Ventilator 02/22/18 11:00 104 25 150/99 (116) 100 02/22/18 10:57 103 25 100 Mechanical Ventilator 30 02/22/18 10:47 99 02/22/18 10:46 105 26 99 Mechanical Ventilator 30 02/22/18 10:45 108 27 30 02/22/18 10:00 99 16 132/86 (101) 99 02/22/18 09:06 96 19 30 02/22/18 09:00 98 16 132/88 (103) 99 02/22/18 08:00 95 02/22/18 08:00 98.7 98 17 116/66 (83) 98 98.7 02/22/18 08:00 30 02/22/18 08:00 Mechanical Ventilator 02/22/18 07:00 98.7 97 16 129/78 (95) 99 98.7 02/22/18 06:35 93 16 30 02/22/18 06:35 93 16 100 Mechanical Ventilator 30 02/22/18 06:25 97 17 99 Mechanical Ventilator 30 02/22/18 06:00 93 16 110/74 (86) 99 02/22/18 05:30 97 19 30 02/22/18 05:00 99 16 127/76 (93) 99 02/22/18 04:00 94 02/22/18 04:00 102 16 121/71 (88) 99 02/22/18 04:00 Mechanical Ventilator 02/22/18 04:00 30 02/22/18 03:37 102 16 100 Mechanical Ventilator 30 02/22/18 03:36 98 16 99 Mechanical Ventilator 30 02/22/18 03:30 94 16 30 02/22/18 03:00 94 16 102/64 (77) 99 02/22/18 02:00 94 16 118/70 (86) 99 02/22/18 01:30 95 16 30 02/22/18 01:00 96 16 100/62 (75) 99 02/22/18 00:23 92 16 Mechanical Ventilator 30 02/22/18 00:00 98.6 102 16 129/79 (96) 99 98.6 02/22/18 00:00 Mechanical Ventilator 02/21/18 23:49 112 18 100 Mechanical Ventilator 30 02/21/18 23:47 110 16 98 Mechanical Ventilator 30 02/21/18 23:30 110 18 30 02/21/18 23:00 109 18 153/94 (113) 99 02/21/18 22:00 109 25 135/92 (106) 99 02/21/18 21:30 102 20 30 02/21/18 21:00 109 25 139/82 (101) 99 02/21/18 20:00 104 02/21/18 20:00 Mechanical Ventilator 02/21/18 20:00 106 25 143/100 (114) 99 02/21/18 20:00 30 02/21/18 19:30 104 19 30 02/21/18 19:00 105 24 141/87 (105) 99 02/21/18 18:00 98.6 112 30 141/90 (107) 99 98.6 02/21/18 17:10 106 29 30 02/21/18 17:00 108 16 141/95 (110) 99 Intake and Output 02/21/18 02/22/18 19:00 07:00 Intake Total 770.0 ml 1037.5 ml Output Total 1565 ml 1040 ml Balance -795.0 ml -2.5 ml Free Water 240 ml IV Total 110.0 ml 137.5 ml Tube Feeding 660 ml 660 ml Output Urine Total 1565 ml 1040 ml # Bowel Movements 6 Objective morbidly obese General Appearance: no acute distress HEENT: anicteric Respiratory/Chest: decreased breath sounds Cardiovascular: normal rate Abdomen: soft, non tender Extremities: no edema Microbiology Date/Time Source Procedure Growth Status 02/21/18 18:30 Stool Clostridium difficile Toxin Assay - Final Complete Current Medications Medications (Trade) Dose Ordered Sig/Roro Route PRN Reason Start Time Stop Time Status Last Admin Dose Admin Acetaminophen (Tylenol) 650 mg Q4H PRN NG Fever/Headache/Mild Pain 02/12/18 02:45 03/14/18 02:44 02/22/18 15:18 Acetylcysteine (Mucomyst) 200 mg Q4HRT HHN 02/21/18 23:00 03/23/18 22:59 02/22/18 15:11 Albuterol/ Ipratropium (Albuterol/ Ipratropium) 3 ml Q4HRT HHN 02/21/18 19:00 02/26/18 18:59 02/22/18 15:10 Bisacodyl (Dulcolax) 10 mg DAILYPRN PRN RECTAL Constipation 02/20/18 20:15 03/16/18 19:14 Carbidopa/Levodopa (Sinemet 25/100) 1 tab THREE TIMES A DAY ORAL 02/12/18 13:00 03/14/18 12:59 02/22/18 12:36 Cinacalcet (Sensipar) 30 mg DAILY ORAL 02/13/18 09:00 03/15/18 08:59 02/22/18 08:16 Clonidine HCl (Catapres Tab) 0.1 mg Q4H PRN ORAL For SBP>170 02/21/18 09:30 03/23/18 09:29 02/21/18 10:45 Insulin Aspart (NovoLOG) 4 units NOVOTIAC SUBQ 02/12/18 11:50 03/14/18 11:49 02/22/18 16:25 Lansoprazole (Prevacid) 30 mg ACBREAKFAST NG 02/12/18 06:30 03/14/18 06:29 02/22/18 06:35 Metronidazole (Flagyl) 500 mg Q8HR ORAL 02/21/18 22:00 02/28/18 21:59 02/22/18 15:16 Ondansetron HCl (Zofran) 4 mg Q4H PRN IVP Nausea & Vomiting 02/13/18 10:30 03/15/18 10:29 02/22/18 09:51 Piperacillin Sod/ Tazobactam Sod 3.375 gm/Dextrose 110 ml @ 27.5 mls/hr EVERY 8 HOURS IVPB 02/12/18 14:00 02/25/18 13:59 02/22/18 15:16 Polyethylene Glycol (Miralax) 17 gm DAILYPRN PRN ORAL Constipation 02/20/18 20:00 03/22/18 19:59 Potassium Chloride (K-Dur) 20 meq TWICE A DAY NGT 02/16/18 10:00 03/18/18 09:59 02/22/18 08:16 Gómez Matos MD Feb 22, 2018 16:52
--- NOTE | 2018-02-22 19:47 | Cardiology Report ---
APPROVED REPORT EKG Measurement Heart [id number] Sinus bradycardia with marked sinus arrhythmia Otherwise normal ECG
[2018-02-23] VITALS (24 sets, daily range): BP systolic 92–145; BP diastolic 48–105
[2018-02-23] MEDS: Albuterol/Ipratropium 3ml neb HHN SCH ×6 (03:00→23:04)
[2018-02-23] MEDS: Acetylcysteine 20% Soln 4ml HHN SCH ×6 (03:01→23:04)
[2018-02-23 05:47] LABS: HEMATOCRIT 30.3 % (37.0-47.0); HEMOGLOBIN 9.4 G/DL (12.0-16.0); MEAN CORPUSCULAR VOLUME 84 FL (80-99); PLATELET COUNT 275 K/UL (150-450); RED BLOOD COUNT 3.61 M/UL (4.20-5.40); RED CELL DISTRIBUTION WIDTH 14.5 % (11.6-14.8); WHITE BLOOD COUNT 16.7 K/UL (4.8-10.8)
[2018-02-23 05:51] LABS: ALANINE AMINOTRANSFERASE 12 U/L (12-78); ALBUMIN 2.2 G/DL (3.4-5.0); ALBUMIN/GLOBULIN RATIO 0.5 (1.0-2.7); ALKALINE PHOSPHATASE 94 U/L (46-116); ANION GAP 7 mmol/L (5-15); ASPARTATE AMINO TRANSFERASE 24 U/L (15-37); BILIRUBIN,TOTAL 0.4 MG/DL (0.2-1.0); BLOOD UREA NITROGEN 22 mg/dL (7-18); CALCIUM 10.3 MG/DL (8.5-10.1); CARBON DIOXIDE 30 MMOL/L (21-32); CHLORIDE 102 MMOL/L (98-107); CREATININE 1.1 MG/DL (0.55-1.30); POTASSIUM 4.3 MMOL/L (3.5-5.1); SODIUM 139 MMOL/L (136-145)
[2018-02-23] MEDS: Piperacillin/Tazobactam 3.375 GM in D5W 110 ML IVPB SCH ×3 (06:03→22:03)
[2018-02-23] MEDS: NovoLOG Insulin Flexpen SUBQ SCH ×3 (06:04→17:54)
[2018-02-23] MEDS: metroNIDAZOLE 500mg tab ORAL SCH ×2 (06:04→14:00)
[2018-02-23] MEDS: Levodopa/Carbidopa 25/100 tab ORAL SCH ×3 (09:38→17:47)
[2018-02-23] MEDS: Sensipar 30mg Tab ORAL SCH (09:38)
[2018-02-23 14:10] LABS: APPEARANCE,URINE SLIGHTLY CLOUDY; BILIRUBIN, URINE NEGATIVE (NEGATIVE); COLOR,URINE PALE YELLOW; GLUCOSE, URINE (UA) NEGATIVE (NEGATIVE); KETONES,URINE NEGATIVE (NEGATIVE); LEUKOCYTE ESTERASE ,URINE 1+ (NEGATIVE); NITRITE,URINE NEGATIVE (NEGATIVE); PH,URINE 6 (4.5-8.0); PROTEIN,URINE 1+ (NEGATIVE); UROBILINOGEN,URINE NORMAL MG/DL (0.0-1.0)
--- NOTE | 2018-02-23 15:39 | Infectious Diseases Prog Note ---
Assessment/Plan Assessment/Plan Full consult dictated: A) 1) pseudomonas pna 2) e.coli uti 3) sepsis, leukocytosis 4) c.diff. negative P) 1) zosyn, amikacin added 2) check sputum culture, ua/uc 3) monitor labs and chest x-ray 4) d/w Dr. Matos 5) thank you Subjective Allergies: Coded Allergies: No Known Allergies (Unverified , 01/11/14) Objective Vital Signs Last 24 Hour Vital Signs Date Time Temp Pulse Resp B/P (MAP) Pulse Ox O2 Delivery O2 Flow Rate FiO2 02/23/18 15:00 108 20 138/64 (88) 100 02/23/18 14:58 109 16 100 Mechanical Ventilator 02/23/18 14:55 107 16 28 02/23/18 14:50 106 16 100 Mechanical Ventilator 28 02/23/18 14:00 107 18 145/105 (118) 100 02/23/18 13:00 106 19 118/77 (91) 100 02/23/18 13:00 115 21 28 02/23/18 12:00 101 02/23/18 12:00 98.9 100 19 92/48 (63) 100 98.9 02/23/18 12:00 28 02/23/18 12:00 Mechanical Ventilator 02/23/18 11:18 113 16 100 Mechanical Ventilator 02/23/18 11:14 107 16 28 02/23/18 11:10 109 16 100 Mechanical Ventilator 02/23/18 11:00 112 20 122/79 (93) 100 02/23/18 10:26 116 25 28 02/23/18 10:00 108 18 110/60 (77) 98 02/23/18 09:50 28 02/23/18 09:47 100 02/23/18 09:29 113 17 28 02/23/18 09:00 104 18 112/62 (79) 96 02/23/18 08:00 Mechanical Ventilator 02/23/18 08:00 98.8 110 19 100/52 (68) 100 98.8 02/23/18 08:00 104 02/23/18 08:00 28 02/23/18 07:41 110 22 100 Mechanical Ventilator 02/23/18 07:28 104 20 100 Mechanical Ventilator 28 02/23/18 07:27 104 16 28 02/23/18 07:00 100 18 95/52 (66) 96 02/23/18 06:00 105 21 93/49 (64) 97 02/23/18 05:25 112 22 30 02/23/18 05:00 114 22 111/64 (80) 96 02/23/18 04:00 Mechanical Ventilator 02/23/18 04:00 99.3 108 18 100/63 (75) 95 99.3 02/23/18 04:00 28 02/23/18 03:33 107 02/23/18 03:10 108 16 99 Mechanical Ventilator 28 02/23/18 03:01 114 16 100 Mechanical Ventilator 28 02/23/18 03:01 114 16 30 02/23/18 03:00 114 20 96/60 (72) 97 02/23/18 02:00 115 16 126/88 (101) 97 02/23/18 01:00 115 17 30 02/23/18 01:00 119 27 104/87 (93) 96 02/23/18 00:00 Mechanical Ventilator 02/23/18 00:00 28 02/23/18 00:00 98.8 118 28 103/79 (87) 97 98.8 02/22/18 23:59 112 21 100 Mechanical Ventilator 28 02/22/18 23:49 110 16 100 Mechanical Ventilator 28 02/22/18 23:49 114 18 30 02/22/18 23:15 115 02/22/18 23:00 114 21 142/74 (96) 97 02/22/18 22:00 114 22 123/66 (85) 97 02/22/18 21:20 112 22 30 02/22/18 21:00 113 19 152/81 (104) 99 02/22/18 20:00 28 02/22/18 20:00 98.4 110 18 140/84 (102) 100 98.4 02/22/18 20:00 Mechanical Ventilator 02/22/18 19:55 110 16 100 Mechanical Ventilator 28 02/22/18 19:48 108 02/22/18 19:45 109 16 100 Mechanical Ventilator 28 02/22/18 19:45 109 16 30 02/22/18 19:00 105 20 141/101 (114) 97 02/22/18 18:00 106 21 125/77 (93) 97 02/22/18 17:04 104 24 30 02/22/18 17:00 106 25 166/91 (116) 96 02/22/18 16:54 104 27 28 02/22/18 16:00 Mechanical Ventilator 02/22/18 16:00 116 02/22/18 16:00 30 02/22/18 16:00 97.6 108 17 146/99 (115) 98 97.6 02/22/18 15:48 98.3 Height (Feet): 5 Height (Inches): 7.00 Weight (Pounds): 273 Microbiology Date/Time Source Procedure Growth Status 02/21/18 18:30 Stool Clostridium difficile Toxin Assay - Final Complete Laboratory Tests Test 02/23/18 05:00 02/23/18 12:30 White Blood Count 16.7 K/UL (4.8-10.8) H Red Blood Count 3.61 M/UL (4.20-5.40) L Hemoglobin 9.4 G/DL (12.0-16.0) L Hematocrit 30.3 % (37.0-47.0) L Mean Corpuscular Volume 84 FL (80-99) Mean Corpuscular Hemoglobin 26.0 PG (27.0-31.0) L Mean Corpuscular Hemoglobin Concent 31.1 G/DL (32.0-36.0) L Red Cell Distribution Width 14.5 % (11.6-14.8) Platelet Count 275 K/UL (150-450) Mean Platelet Volume 6.3 FL (6.5-10.1) L Neutrophils (%) (Auto) % (45.0-75.0) Lymphocytes (%) (Auto) % (20.0-45.0) Monocytes (%) (Auto) % (1.0-10.0) Eosinophils (%) (Auto) % (0.0-3.0) Basophils (%) (Auto) % (0.0-2.0) Sodium Level 139 MMOL/L (136-145) Potassium Level 4.3 MMOL/L (3.5-5.1) Chloride Level 102 MMOL/L (98-107) Carbon Dioxide Level 30 MMOL/L (21-32) Anion Gap 7 mmol/L (5-15) Blood Urea Nitrogen 22 mg/dL (7-18) H Creatinine 1.1 MG/DL (0.55-1.30) Estimat Glomerular Filtration Rate mL/min (>60) Glucose Level 184 MG/DL (74-106) H Calcium Level 10.3 MG/DL (8.5-10.1) H Total Bilirubin 0.4 MG/DL (0.2-1.0) Aspartate Amino Transf (AST/SGOT) 24 U/L (15-37) Alanine Aminotransferase (ALT/SGPT) 12 U/L (12-78) Alkaline Phosphatase 94 U/L (46-116) Total Protein 6.9 G/DL (6.4-8.2) Albumin 2.2 G/DL (3.4-5.0) L Globulin 4.7 g/dL Albumin/Globulin Ratio 0.5 (1.0-2.7) L Urine Color Pale yellow Urine Appearance Slightly cloudy Urine pH 6 (4.5-8.0) Urine Specific Viola 1.010 (1.005-1.035) Urine Protein 1+ (NEGATIVE) H Urine Glucose (UA) Negative (NEGATIVE) Urine Ketones Negative (NEGATIVE) Urine Occult Blood 3+ (NEGATIVE) H Urine Nitrite Negative (NEGATIVE) Urine Bilirubin Negative (NEGATIVE) Urine Urobilinogen Normal MG/DL (0.0-1.0) Urine Leukocyte Esterase 1+ (NEGATIVE) H Urine RBC 5-10 /HPF (0 - 2) H Urine WBC 2-4 /HPF (0 - 2) Urine Squamous Epithelial Cells Few /LPF (NONE/OCC) Urine Bacteria Occasional /HPF (NONE) Urine Yeast Many /HPF (NONE) H Current Medications Medications (Trade) Dose Ordered Sig/Roro Route PRN Reason Start Time Stop Time Status Last Admin Dose Admin Acetaminophen (Tylenol) 650 mg Q4H PRN NG Fever/Headache/Mild Pain 02/12/18 02:45 03/14/18 02:44 02/22/18 15:18 Acetylcysteine (Mucomyst) 200 mg Q4HRT N 02/21/18 23:00 03/23/18 22:59 02/23/18 14:54 Albuterol/ Ipratropium (Albuterol/ Ipratropium) 3 ml Q4HRT N 02/21/18 19:00 02/26/18 18:59 02/23/18 14:52 Bisacodyl (Dulcolax) 10 mg DAILYPRN PRN RECTAL Constipation 02/20/18 20:15 03/16/18 19:14 Carbidopa/Levodopa (Sinemet 25/100) 1 tab THREE TIMES A DAY ORAL 02/12/18 13:00 03/14/18 12:59 02/23/18 12:01 Cinacalcet (Sensipar) 30 mg DAILY ORAL 02/13/18 09:00 03/15/18 08:59 02/23/18 09:38 Clonidine HCl (Catapres Tab) 0.1 mg Q4H PRN ORAL For SBP>170 02/21/18 09:30 03/23/18 09:29 02/21/18 10:45 Insulin Aspart (NovoLOG) 4 units NOVOTIAC SUBQ 02/12/18 11:50 03/14/18 11:49 02/23/18 12:03 Lansoprazole (Prevacid) 30 mg ACBREAKFAST NG 02/12/18 06:30 03/14/18 06:29 02/23/18 06:04 Ondansetron HCl (Zofran) 4 mg Q4H PRN IVP Nausea & Vomiting 02/13/18 10:30 03/15/18 10:29 02/22/18 23:28 Piperacillin Sod/ Tazobactam Sod 3.375 gm/Dextrose 110 ml @ 27.5 mls/hr EVERY 8 HOURS IVPB 02/12/18 14:00 02/25/18 13:59 02/23/18 14:00 Polyethylene Glycol (Miralax) 17 gm DAILYPRN PRN ORAL Constipation 02/20/18 20:00 03/22/18 19:59 Potassium Chloride (K-Dur) 20 meq TWICE A DAY NGT 02/16/18 10:00 03/18/18 09:59 02/23/18 09:38 Celia Capone MD Feb 23, 2018 15:39
[2018-02-23] MEDS ORDERED: Amikacin Rx to dose MISC PRN (15:45)
--- NOTE | 2018-02-23 15:45 | Pulmonology Progress Note ---
Assessment/Plan Assessment/Plan 1. Acute respiratory failure. 2. Extensive pneumonia, left lung. 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 5. Parkinson's disease. 6. Esophageal dysmotility. 7. Morbid obesity with obesity hypoventilation syndrome. 8. Hypertension w LVH 9. Nephrolithiasis and renal mass. 10. History of breast cancer. alert, using letter board weaning trials tolerated variably spont TV on CPAP 0/PSV 5 >300 and RR 28 tolerating feedings, good output WBC higher, ID consult discussed w Dr Capone lab reviewed disc w RN trial of extubation tomorrow if stable Subjective ROS Limited/Unobtainable: Yes Allergies: Coded Allergies: No Known Allergies (Unverified , 01/11/14) Objective Last 24 Hour Vital Signs Date Time Temp Pulse Resp B/P (MAP) Pulse Ox O2 Delivery O2 Flow Rate FiO2 02/23/18 15:00 108 20 138/64 (88) 100 02/23/18 14:58 109 16 100 Mechanical Ventilator 28 02/23/18 14:55 107 16 28 02/23/18 14:50 106 16 100 Mechanical Ventilator 28 02/23/18 14:00 107 18 145/105 (118) 100 02/23/18 13:00 106 19 118/77 (91) 100 02/23/18 13:00 115 21 28 02/23/18 12:00 101 02/23/18 12:00 98.9 100 19 92/48 (63) 100 98.9 02/23/18 12:00 28 02/23/18 12:00 Mechanical Ventilator 02/23/18 11:18 113 16 100 Mechanical Ventilator 28 02/23/18 11:14 107 16 28 02/23/18 11:10 109 16 100 Mechanical Ventilator 28 02/23/18 11:00 112 20 122/79 (93) 100 02/23/18 10:26 116 25 28 02/23/18 10:00 108 18 110/60 (77) 98 02/23/18 09:50 28 02/23/18 09:47 100 02/23/18 09:29 113 17 28 02/23/18 09:00 104 18 112/62 (79) 96 02/23/18 08:00 Mechanical Ventilator 02/23/18 08:00 98.8 110 19 100/52 (68) 100 98.8 02/23/18 08:00 104 02/23/18 08:00 28 02/23/18 07:41 110 22 100 Mechanical Ventilator 28 02/23/18 07:28 104 20 100 Mechanical Ventilator 28 02/23/18 07:27 104 16 28 02/23/18 07:00 100 18 95/52 (66) 96 02/23/18 06:00 105 21 93/49 (64) 97 02/23/18 05:25 112 22 30 02/23/18 05:00 114 22 111/64 (80) 96 02/23/18 04:00 Mechanical Ventilator 02/23/18 04:00 99.3 108 18 100/63 (75) 95 99.3 02/23/18 04:00 28 02/23/18 03:33 107 02/23/18 03:10 108 16 99 Mechanical Ventilator 28 02/23/18 03:01 114 16 100 Mechanical Ventilator 28 02/23/18 03:01 114 16 30 02/23/18 03:00 114 20 96/60 (72) 97 02/23/18 02:00 115 16 126/88 (101) 97 02/23/18 01:00 115 17 30 02/23/18 01:00 119 27 104/87 (93) 96 02/23/18 00:00 Mechanical Ventilator 02/23/18 00:00 28 02/23/18 00:00 98.8 118 28 103/79 (87) 97 98.8 02/22/18 23:59 112 21 100 Mechanical Ventilator 28 02/22/18 23:49 110 16 100 Mechanical Ventilator 28 02/22/18 23:49 114 18 30 02/22/18 23:15 115 02/22/18 23:00 114 21 142/74 (96) 97 02/22/18 22:00 114 22 123/66 (85) 97 02/22/18 21:20 112 22 30 02/22/18 21:00 113 19 152/81 (104) 99 02/22/18 20:00 28 02/22/18 20:00 98.4 110 18 140/84 (102) 100 98.4 02/22/18 20:00 Mechanical Ventilator 02/22/18 19:55 110 16 100 Mechanical Ventilator 28 02/22/18 19:48 108 02/22/18 19:45 109 16 100 Mechanical Ventilator 28 02/22/18 19:45 109 16 30 02/22/18 19:00 105 20 141/101 (114) 97 02/22/18 18:00 106 21 125/77 (93) 97 02/22/18 17:04 104 24 30 02/22/18 17:00 106 25 166/91 (116) 96 02/22/18 16:54 104 27 28 02/22/18 16:00 Mechanical Ventilator 02/22/18 16:00 116 02/22/18 16:00 30 02/22/18 16:00 97.6 108 17 146/99 (115) 98 97.6 02/22/18 15:48 98.3 Intake and Output 02/22/18 02/23/18 19:00 07:00 Intake Total 825.0 ml 907.5 ml Output Total 1700 ml 1555 ml Balance -875.0 ml -647.5 ml IV Total 165.0 ml 137.5 ml Tube Feeding 660 ml 660 ml Other 110 ml Output Urine Total 1400 ml 1475 ml Stool Total 300 ml 80 ml Objective morbidly obese General Appearance: no acute distress Respiratory/Chest: decreased breath sounds Cardiovascular: tachycardia Abdomen: soft, non tender Microbiology Date/Time Source Procedure Growth Status 02/21/18 18:30 Stool Clostridium difficile Toxin Assay - Final Complete Laboratory Tests 02/23/18 05:00: White Blood Count 16.7H, Red Blood Count 3.61L, Hemoglobin 9.4L, Hematocrit 30.3L, Mean Corpuscular Volume 84, Mean Corpuscular Hemoglobin 26.0L, Mean Corpuscular Hemoglobin Concent 31.1L, Red Cell Distribution Width 14.5, Platelet Count 275, Mean Platelet Volume 6.3L, Neutrophils (%) (Auto) , Lymphocytes (%) (Auto) , Monocytes (%) (Auto) , Eosinophils (%) (Auto) , Basophils (%) (Auto) , Sodium Level 139, Potassium Level 4.3, Chloride Level 102 , Carbon Dioxide Level 30, Anion Gap 7, Blood Urea Nitrogen 22H, Creatinine 1.1 , Estimat Glomerular Filtration Rate , Glucose Level 184H, Calcium Level 10.3H, Total Bilirubin 0.4, Aspartate Amino Transf (AST/SGOT) 24, Alanine Aminotransferase (ALT/SGPT) 12, Alkaline Phosphatase 94, Total Protein 6.9, Albumin 2.2L, Globulin 4.7, Albumin/Globulin Ratio 0.5L 02/23/18 12:30: Urine Color Pale yellow, Urine Appearance Slightly cloudy, Urine pH 6, Urine Specific Broussard 1.010, Urine Protein 1+H, Urine Glucose (UA) Negative, Urine Ketones Negative, Urine Occult Blood 3+H, Urine Nitrite Negative, Urine Bilirubin Negative, Urine Urobilinogen Normal, Urine Leukocyte Esterase 1+H, Urine RBC 5-10H, Urine WBC 2-4, Urine Squamous Epithelial Cells Few, Urine Bacteria Occasional, Urine Yeast ManyH Current Medications Medications (Trade) Dose Ordered Sig/Roro Route PRN Reason Start Time Stop Time Status Last Admin Dose Admin Acetaminophen (Tylenol) 650 mg Q4H PRN NG Fever/Headache/Mild Pain 02/12/18 02:45 03/14/18 02:44 02/22/18 15:18 Acetylcysteine (Mucomyst) 200 mg Q4HRT N 02/21/18 23:00 03/23/18 22:59 02/23/18 14:54 Albuterol/ Ipratropium (Albuterol/ Ipratropium) 3 ml Q4HRT N 02/21/18 19:00 02/26/18 18:59 02/23/18 14:52 Amikacin Protocol (Amikacin pharmacy to dose) 1 ea DAILY PRN MISC Per rx protocol 02/23/18 15:45 03/25/18 15:44 UNV Bisacodyl (Dulcolax) 10 mg DAILYPRN PRN RECTAL Constipation 02/20/18 20:15 03/16/18 19:14 Carbidopa/Levodopa (Sinemet 25/100) 1 tab THREE TIMES A DAY ORAL 02/12/18 13:00 03/14/18 12:59 02/23/18 12:01 Cinacalcet (Sensipar) 30 mg DAILY ORAL 02/13/18 09:00 03/15/18 08:59 02/23/18 09:38 Clonidine HCl (Catapres Tab) 0.1 mg Q4H PRN ORAL For SBP>170 02/21/18 09:30 03/23/18 09:29 02/21/18 10:45 Fluconazole (Diflucan) 200 mg Q24H ORAL 02/23/18 18:00 03/02/18 17:59 Insulin Aspart (NovoLOG) 4 units NOVOTIAC SUBQ 02/12/18 11:50 03/14/18 11:49 02/23/18 12:03 Lansoprazole (Prevacid) 30 mg ACBREAKFAST NG 02/12/18 06:30 03/14/18 06:29 02/23/18 06:04 Ondansetron HCl (Zofran) 4 mg Q4H PRN IVP Nausea & Vomiting 02/13/18 10:30 03/15/18 10:29 02/22/18 23:28 Piperacillin Sod/ Tazobactam Sod 3.375 gm/Dextrose 110 ml @ 27.5 mls/hr EVERY 8 HOURS IVPB 02/23/18 22:00 03/08/18 21:59 Polyethylene Glycol (Miralax) 17 gm DAILYPRN PRN ORAL Constipation 02/20/18 20:00 03/22/18 19:59 Potassium Chloride (K-Dur) 20 meq TWICE A DAY NGT 02/16/18 10:00 03/18/18 09:59 02/23/18 09:38 Gómez Matos MD Feb 23, 2018 15:45
[2018-02-23] MEDS ORDERED: AMIKACIN IV SCH ×2 (17:00→20:00)
[2018-02-23] MEDS ORDERED: NS IV SCH ×2 (17:00→20:00)
[2018-02-23] MEDS: Acetaminophen 650mg/20.3ml NG PRN (17:29)
[2018-02-23] MEDS: Fluconazole 100mg tab ORAL SCH (17:46)
[2018-02-24] VITALS (24 sets, daily range): BP systolic 90–146; BP diastolic 49–94
[2018-02-24] MEDS: Albuterol/Ipratropium 3ml neb HHN SCH ×6 (03:39→23:03)
[2018-02-24] MEDS: Acetylcysteine 20% Soln 4ml HHN SCH ×6 (03:40→23:03)
[2018-02-24] MEDS: Piperacillin/Tazobactam 3.375 GM in D5W 110 ML IVPB SCH ×3 (06:17→22:04)
[2018-02-24 06:19] LABS: ANION GAP 7 mmol/L (5-15); BASOPHILS % (AUTO) 0.7 % (0.0-2.0); BLOOD UREA NITROGEN 23 mg/dL (7-18); CALCIUM 10.2 MG/DL (8.5-10.1); CARBON DIOXIDE 32 MMOL/L (21-32); CHLORIDE 101 MMOL/L (98-107); CREATININE 1.2 MG/DL (0.55-1.30); EOSINOPHILS % (AUTO) 2.5 % (0.0-3.0); HEMATOCRIT 31.8 % (37.0-47.0); HEMOGLOBIN 9.9 G/DL (12.0-16.0); LYMPHOCYTES % (AUTO) 9.7 % (20.0-45.0); MEAN CORPUSCULAR VOLUME 84 FL (80-99); MONOCYTES % (AUTO) 7.4 % (1.0-10.0); NEUTROPHILS % (AUTO) 79.7 % (45.0-75.0); PLATELET COUNT 290 K/UL (150-450); POTASSIUM 4.2 MMOL/L (3.5-5.1); RED CELL DISTRIBUTION WIDTH 14.4 % (11.6-14.8); SODIUM 139 MMOL/L (136-145); WHITE BLOOD COUNT 14.3 K/UL (4.8-10.8)
[2018-02-24] MEDS: NovoLOG Insulin Flexpen SUBQ SCH ×3 (06:29→18:11)
[2018-02-24] MEDS: Levodopa/Carbidopa 25/100 tab ORAL SCH ×3 (09:34→18:10)
[2018-02-24] MEDS: Sensipar 30mg Tab ORAL SCH (09:34)
--- NOTE | 2018-02-24 11:24 | Diagnostic Imaging Report ---
Indication: Dyspnea Technique: One view of the chest Comparison: 02/21/2018 Findings: Unusual mediastinal stent is again demonstrated. Stable satisfactory positions of endotracheal and nasogastric tubes. There is suggestion of slight improvement of bilateral interstitial edema, although disease persists. There may be a small left pleural effusion. The heart size is upper limits of normal Impression: Perhaps slightly improved interstitial congestion. Otherwise, little loom changer 3 days, findings as described
--- NOTE | 2018-02-24 16:00 | Pulmonology Progress Note ---
Assessment/Plan Assessment/Plan 1. Acute respiratory failure. 2. Extensive pneumonia, left lung. 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 5. Parkinson's disease. 6. Esophageal dysmotility. 7. Morbid obesity with obesity hypoventilation syndrome. 8. Hypertension w LVH 9. Nephrolithiasis and renal mass. 10. History of breast cancer. alert, using letter board weaning trials not tolerated today spont TV poor <200 cc RR >40 with accessory muscle use tolerating feedings, good output WBC 14, slightly lower no signs of sepsis disc w RN not stable for extubation, now almost 2 weeks disc possible trach with her and she asked me to speak with her son spoke to son (ortho MD) about resp failure physiology and options will disc w her again tomorrow Subjective Constitutional: Denies: fever Respiratory: Reports: shortness of breath Allergies: Coded Allergies: No Known Allergies (Unverified , 01/11/14) Objective Last 24 Hour Vital Signs Date Time Temp Pulse Resp B/P (MAP) Pulse Ox O2 Delivery O2 Flow Rate FiO2 02/24/18 15:08 111 16 96 Mechanical Ventilator 28 02/24/18 15:08 110 16 98 Mechanical Ventilator 28 02/24/18 15:06 111 20 28 02/24/18 15:00 104 18 98/55 (69) 100 02/24/18 14:00 103 18 95/55 (68) 100 02/24/18 13:00 105 18 94/52 (66) 100 02/24/18 12:55 115 23 28 02/24/18 12:00 28 02/24/18 12:00 107 02/24/18 12:00 98.8 110 20 90/52 (65) 100 98.8 02/24/18 12:00 Mechanical Ventilator 02/24/18 11:02 100 16 99 Mechanical Ventilator 28 02/24/18 11:00 97 16 97 Mechanical Ventilator 28 02/24/18 11:00 108 20 95/52 (66) 100 02/24/18 10:59 97 19 28 02/24/18 10:00 110 20 94/50 (65) 100 02/24/18 09:00 113 15 103/63 (76) 100 02/24/18 09:00 113 27 28 02/24/18 08:55 96 02/24/18 08:00 28 02/24/18 08:00 110 02/24/18 08:00 98.9 105 16 106/62 (77) 100 98.9 02/24/18 08:00 Mechanical Ventilator 02/24/18 07:15 113 17 100 Mechanical Ventilator 28 02/24/18 07:14 113 21 28 02/24/18 07:13 113 16 97 Mechanical Ventilator 28 02/24/18 07:00 105 16 100/74 (83) 100 02/24/18 06:00 103 16 107/53 (71) 100 02/24/18 05:25 114 25 28 02/24/18 05:00 103 16 101/59 (73) 100 02/24/18 04:54 28 02/24/18 04:00 Mechanical Ventilator 02/24/18 04:00 98.6 105 16 106/49 (68) 100 98.6 02/24/18 04:00 105 02/24/18 03:49 101 16 98 Mechanical Ventilator 28 02/24/18 03:39 101 18 96 Mechanical Ventilator 28 02/24/18 03:27 101 18 28 02/24/18 03:00 103 16 100/59 (73) 100 02/24/18 02:00 107 19 103/49 (67) 100 02/24/18 01:25 106 21 28 02/24/18 01:00 107 20 116/63 (80) 100 02/24/18 00:00 104 02/24/18 00:00 98.6 107 20 99/49 (66) 100 98.6 02/24/18 00:00 28 02/24/18 00:00 Mechanical Ventilator 02/23/18 23:14 99 16 100 Mechanical Ventilator 28 02/23/18 23:02 101 16 97 Mechanical Ventilator 28 02/23/18 23:01 98 16 28 02/23/18 23:00 105 20 100/55 (70) 100 02/23/18 22:00 99 20 118/65 (82) 100 02/23/18 21:20 105 19 28 02/23/18 21:00 105 20 118/65 (82) 100 02/23/18 20:00 104 02/23/18 20:00 98.8 104 18 104/55 (71) 100 98.8 02/23/18 20:00 Mechanical Ventilator 02/23/18 20:00 28 02/23/18 19:35 98 14 100 Mechanical Ventilator 28 02/23/18 19:09 100 16 94 Mechanical Ventilator 28 02/23/18 19:07 100 16 28 02/23/18 19:00 105 20 135/65 (88) 100 02/23/18 18:00 103 20 141/68 (92) 100 02/23/18 17:00 106 20 133/66 (88) 100 02/23/18 16:57 110 18 28 02/23/18 16:00 98.9 108 20 130/66 (87) 100 98.9 02/23/18 16:00 28 02/23/18 16:00 Mechanical Ventilator 02/23/18 16:00 108 Intake and Output 02/23/18 02/24/18 19:00 07:00 Intake Total 703 ml 1035.2 ml Output Total 1060 ml 1020 ml Balance -357 ml 15.2 ml Free Water 150 ml IV Total 225.2 ml Tube Feeding 660 ml 660 ml Other 43 ml Output Urine Total 1060 ml 1020 ml Objective morbidly obese General Appearance: no acute distress HEENT: atraumatic, anicteric Respiratory/Chest: decreased breath sounds Cardiovascular: normal rate Microbiology Date/Time Source Procedure Growth Status 02/23/18 12:30 Sputum Gram Stain - Final Resulted 02/23/18 12:30 Sputum Sputum Culture Pending Resulted 02/21/18 18:30 Stool Clostridium difficile Toxin Assay - Final Complete 02/23/18 12:30 Urine,Clean Catch Urine Culture - Preliminary Resulted Laboratory Tests 02/24/18 05:51: White Blood Count 14.3H, Red Blood Count 3.80L, Hemoglobin 9.9L, Hematocrit 31.8L, Mean Corpuscular Volume 84, Mean Corpuscular Hemoglobin 26.0L, Mean Corpuscular Hemoglobin Concent 31.1L, Red Cell Distribution Width 14.4, Platelet Count 290, Mean Platelet Volume 6.3L, Neutrophils (%) (Auto) 79.7H, Lymphocytes (%) (Auto) 9.7L, Monocytes (%) (Auto) 7.4, Eosinophils (%) (Auto) 2.5, Basophils (%) (Auto) 0.7, Sodium Level 139, Potassium Level 4.2, Chloride Level 101, Carbon Dioxide Level 32, Anion Gap 7, Blood Urea Nitrogen 23H, Creatinine 1.2, Estimat Glomerular Filtration Rate , Glucose Level 174H, Calcium Level 10.2H 02/24/18 08:00: Amikacin Level Peak 21.4L Current Medications Medications (Trade) Dose Ordered Sig/Roro Route PRN Reason Start Time Stop Time Status Last Admin Dose Admin Acetaminophen (Tylenol) 650 mg Q4H PRN NG Fever/Headache/Mild Pain 02/12/18 02:45 03/14/18 02:44 02/23/18 17:29 Acetylcysteine (Mucomyst) 200 mg Q4HRT N 02/21/18 23:00 03/23/18 22:59 02/24/18 15:06 Albuterol/ Ipratropium (Albuterol/ Ipratropium) 3 ml Q4HRT N 02/21/18 19:00 02/26/18 18:59 02/24/18 15:05 Amikacin Protocol (Amikacin pharmacy to dose) 1 ea DAILY PRN MISC Per rx protocol 02/23/18 15:45 03/25/18 15:44 Amikacin Sulfate 1300 mg/Sodium Chloride 115.2 ml @ 115.2 mls/ hr Q48H IV 02/25/18 20:00 03/04/18 19:59 Bisacodyl (Dulcolax) 10 mg DAILYPRN PRN RECTAL Constipation 02/20/18 20:15 03/16/18 19:14 Carbidopa/Levodopa (Sinemet 25/100) 1 tab THREE TIMES A DAY ORAL 02/12/18 13:00 03/14/18 12:59 02/24/18 13:00 Cinacalcet (Sensipar) 30 mg DAILY ORAL 02/13/18 09:00 03/15/18 08:59 02/24/18 09:34 Clonidine HCl (Catapres Tab) 0.1 mg Q4H PRN ORAL For SBP>170 02/21/18 09:30 03/23/18 09:29 02/21/18 10:45 Fluconazole (Diflucan) 200 mg Q24H ORAL 02/23/18 18:00 03/02/18 17:59 02/23/18 17:46 Insulin Aspart (NovoLOG) 4 units NOVOTIAC SUBQ 02/12/18 11:50 03/14/18 11:49 02/24/18 11:50 Lansoprazole (Prevacid) 30 mg ACBREAKFAST NG 02/12/18 06:30 03/14/18 06:29 02/24/18 06:17 Ondansetron HCl (Zofran) 4 mg Q4H PRN IVP Nausea & Vomiting 02/13/18 10:30 03/15/18 10:29 02/22/18 23:28 Piperacillin Sod/ Tazobactam Sod 3.375 gm/Dextrose 110 ml @ 27.5 mls/hr EVERY 8 HOURS IVPB 02/23/18 22:00 03/08/18 21:59 02/24/18 14:07 Polyethylene Glycol (Miralax) 17 gm DAILYPRN PRN ORAL Constipation 02/20/18 20:00 03/22/18 19:59 Potassium Chloride (K-Dur) 20 meq TWICE A DAY NGT 02/16/18 10:00 03/18/18 09:59 02/24/18 09:34 Gómez Matos MD Feb 24, 2018 16:00
--- NOTE | 2018-02-24 16:42 | Infectious Diseases Prog Note ---
Assessment/Plan Assessment/Plan Full consult dictated: A) 1) pseudomonas pna 2) e.coli uti 3) sepsis, leukocytosis, fungemia risk 4) c.diff. negative P) 1) zosyn and amikacin, diflucan 2) check sputum culture, ua/uc 3) monitor labs and chest x-ray 4) will f/u Subjective Allergies: Coded Allergies: No Known Allergies (Unverified , 01/11/14) Objective Vital Signs Last 24 Hour Vital Signs Date Time Temp Pulse Resp B/P (MAP) Pulse Ox O2 Delivery O2 Flow Rate FiO2 02/24/18 16:00 108 02/24/18 16:00 Mechanical Ventilator 02/24/18 16:00 28 02/24/18 16:00 98.6 107 20 120/66 (84) 100 98.6 02/24/18 15:08 111 16 96 Mechanical Ventilator 28 02/24/18 15:08 110 16 98 Mechanical Ventilator 28 02/24/18 15:06 111 20 28 02/24/18 15:00 104 18 98/55 (69) 100 02/24/18 14:00 103 18 95/55 (68) 100 02/24/18 13:00 105 18 94/52 (66) 100 02/24/18 12:55 115 23 28 02/24/18 12:00 28 02/24/18 12:00 107 02/24/18 12:00 98.8 110 20 90/52 (65) 100 98.8 02/24/18 12:00 Mechanical Ventilator 02/24/18 11:02 100 16 99 Mechanical Ventilator 28 02/24/18 11:00 97 16 97 Mechanical Ventilator 28 02/24/18 11:00 108 20 95/52 (66) 100 02/24/18 10:59 97 19 28 02/24/18 10:00 110 20 94/50 (65) 100 02/24/18 09:00 113 15 103/63 (76) 100 02/24/18 09:00 113 27 28 02/24/18 08:55 96 02/24/18 08:00 28 02/24/18 08:00 110 02/24/18 08:00 98.9 105 16 106/62 (77) 100 98.9 02/24/18 08:00 Mechanical Ventilator 02/24/18 07:15 113 17 100 Mechanical Ventilator 28 02/24/18 07:14 113 21 28 02/24/18 07:13 113 16 97 Mechanical Ventilator 28 02/24/18 07:00 105 16 100/74 (83) 100 02/24/18 06:00 103 16 107/53 (71) 100 02/24/18 05:25 114 25 28 02/24/18 05:00 103 16 101/59 (73) 100 02/24/18 04:54 28 02/24/18 04:00 Mechanical Ventilator 02/24/18 04:00 98.6 105 16 106/49 (68) 100 98.6 02/24/18 04:00 105 02/24/18 03:49 101 16 98 Mechanical Ventilator 28 02/24/18 03:39 101 18 96 Mechanical Ventilator 28 02/24/18 03:27 101 18 28 02/24/18 03:00 103 16 100/59 (73) 100 02/24/18 02:00 107 19 103/49 (67) 100 02/24/18 01:25 106 21 28 02/24/18 01:00 107 20 116/63 (80) 100 02/24/18 00:00 104 02/24/18 00:00 98.6 107 20 99/49 (66) 100 98.6 02/24/18 00:00 28 02/24/18 00:00 Mechanical Ventilator 02/23/18 23:14 99 16 100 Mechanical Ventilator 28 02/23/18 23:02 101 16 97 Mechanical Ventilator 28 02/23/18 23:01 98 16 28 02/23/18 23:00 105 20 100/55 (70) 100 02/23/18 22:00 99 20 118/65 (82) 100 02/23/18 21:20 105 19 28 02/23/18 21:00 105 20 118/65 (82) 100 02/23/18 20:00 104 02/23/18 20:00 98.8 104 18 104/55 (71) 100 98.8 02/23/18 20:00 Mechanical Ventilator 02/23/18 20:00 28 02/23/18 19:35 98 14 100 Mechanical Ventilator 28 02/23/18 19:09 100 16 94 Mechanical Ventilator 28 02/23/18 19:07 100 16 28 02/23/18 19:00 105 20 135/65 (88) 100 02/23/18 18:00 103 20 141/68 (92) 100 02/23/18 17:00 106 20 133/66 (88) 100 02/23/18 16:57 110 18 28 Height (Feet): 5 Height (Inches): 7.00 Weight (Pounds): 273 Microbiology Date/Time Source Procedure Growth Status 02/23/18 12:30 Sputum Gram Stain - Final Resulted 02/23/18 12:30 Sputum Sputum Culture Pending Resulted 02/21/18 18:30 Stool Clostridium difficile Toxin Assay - Final Complete 02/23/18 12:30 Urine,Clean Catch Urine Culture - Preliminary Resulted Laboratory Tests Test 02/24/18 05:51 02/24/18 08:00 White Blood Count 14.3 K/UL (4.8-10.8) H Red Blood Count 3.80 M/UL (4.20-5.40) L Hemoglobin 9.9 G/DL (12.0-16.0) L Hematocrit 31.8 % (37.0-47.0) L Mean Corpuscular Volume 84 FL (80-99) Mean Corpuscular Hemoglobin 26.0 PG (27.0-31.0) L Mean Corpuscular Hemoglobin Concent 31.1 G/DL (32.0-36.0) L Red Cell Distribution Width 14.4 % (11.6-14.8) Platelet Count 290 K/UL (150-450) Mean Platelet Volume 6.3 FL (6.5-10.1) L Neutrophils (%) (Auto) 79.7 % (45.0-75.0) H Lymphocytes (%) (Auto) 9.7 % (20.0-45.0) L Monocytes (%) (Auto) 7.4 % (1.0-10.0) Eosinophils (%) (Auto) 2.5 % (0.0-3.0) Basophils (%) (Auto) 0.7 % (0.0-2.0) Sodium Level 139 MMOL/L (136-145) Potassium Level 4.2 MMOL/L (3.5-5.1) Chloride Level 101 MMOL/L (98-107) Carbon Dioxide Level 32 MMOL/L (21-32) Anion Gap 7 mmol/L (5-15) Blood Urea Nitrogen 23 mg/dL (7-18) H Creatinine 1.2 MG/DL (0.55-1.30) Estimat Glomerular Filtration Rate mL/min (>60) Glucose Level 174 MG/DL (74-106) H Calcium Level 10.2 MG/DL (8.5-10.1) H Amikacin Level Peak 21.4 ug/mL (25.0-35.0) L Current Medications Medications (Trade) Dose Ordered Sig/Roro Route PRN Reason Start Time Stop Time Status Last Admin Dose Admin Acetaminophen (Tylenol) 650 mg Q4H PRN NG Fever/Headache/Mild Pain 02/12/18 02:45 03/14/18 02:44 02/23/18 17:29 Acetylcysteine (Mucomyst) 200 mg Q4HRT N 02/21/18 23:00 03/23/18 22:59 02/24/18 15:06 Albuterol/ Ipratropium (Albuterol/ Ipratropium) 3 ml Q4HRT N 02/21/18 19:00 02/26/18 18:59 02/24/18 15:05 Amikacin Protocol (Amikacin pharmacy to dose) 1 ea DAILY PRN MISC Per rx protocol 02/23/18 15:45 03/25/18 15:44 Amikacin Sulfate 1300 mg/Sodium Chloride 115.2 ml @ 115.2 mls/ hr Q48H IV 02/25/18 20:00 03/04/18 19:59 Bisacodyl (Dulcolax) 10 mg DAILYPRN PRN RECTAL Constipation 02/20/18 20:15 03/16/18 19:14 Carbidopa/Levodopa (Sinemet 25/100) 1 tab THREE TIMES A DAY ORAL 02/12/18 13:00 03/14/18 12:59 02/24/18 13:00 Cinacalcet (Sensipar) 30 mg DAILY ORAL 02/13/18 09:00 03/15/18 08:59 02/24/18 09:34 Clonidine HCl (Catapres Tab) 0.1 mg Q4H PRN ORAL For SBP>170 02/21/18 09:30 03/23/18 09:29 02/21/18 10:45 Fluconazole (Diflucan) 200 mg Q24H ORAL 02/23/18 18:00 03/02/18 17:59 02/23/18 17:46 Insulin Aspart (NovoLOG) 4 units NOVOTIAC SUBQ 02/12/18 11:50 03/14/18 11:49 02/24/18 11:50 Lansoprazole (Prevacid) 30 mg ACBREAKFAST NG 02/12/18 06:30 03/14/18 06:29 02/24/18 06:17 Ondansetron HCl (Zofran) 4 mg Q4H PRN IVP Nausea & Vomiting 02/13/18 10:30 03/15/18 10:29 02/22/18 23:28 Piperacillin Sod/ Tazobactam Sod 3.375 gm/Dextrose 110 ml @ 27.5 mls/hr EVERY 8 HOURS IVPB 02/23/18 22:00 03/08/18 21:59 02/24/18 14:07 Polyethylene Glycol (Miralax) 17 gm DAILYPRN PRN ORAL Constipation 02/20/18 20:00 03/22/18 19:59 Potassium Chloride (K-Dur) 20 meq TWICE A DAY NGT 02/16/18 10:00 03/18/18 09:59 02/24/18 09:34 Celia Capone MD Feb 24, 2018 16:42
[2018-02-24] MEDS: Fluconazole 100mg tab ORAL SCH (18:10)
[2018-02-25] VITALS (24 sets, daily range): BP systolic 95–156; BP diastolic 54–97
--- NOTE | 2018-02-25 | Consultation ---
DATE OF CONSULTATION: 02/24/2018 INFECTIOUS DISEASE CONSULTATION ATTENDING PHYSICIAN: Gómez Matos M.D. REFERRING PHYSICIAN: Gómez Matos M.D. CONSULTING PHYSICIAN: Celia Capone M.D. REASON FOR CONSULTATION: Sepsis, pneumonia, and UTI. PATIENT'S CHIEF COMPLAINT COMING INTO THE HOSPITAL: Pneumonia and sepsis. HISTORY OF PRESENT ILLNESS: This is an 82-year-old female, who is currently in ICU at [facility]. The patient presented with fevers of 102 on admission. Chest x-ray showed the patient to have pneumonia. Workup showed that the patient has Pseudomonas pneumonia. The patient was noted to have worsening leukocytosis. Because of the sepsis and pneumonia and also urinary tract infection, Infectious Disease consultation requested. I saw the patient yesterday and her white count worsened. The patient was on Zosyn and amikacin. Followup cultures were ordered. C. difficile is negative. The patient also had E. coli UTI in addition to Pseudomonas pneumonia. The patient will be continued and Zosyn, amikacin, and Diflucan for fungemia risk also. Case discussed with Dr. Matos. The patient currently is intubated in ICU. She is currently not on pressors. She has a Pagan and rectal tube and vent. Case was discussed with RN. PAST MEDICAL HISTORY: She has history of respiratory failure in the past. She has history of Parkinson disease and esophageal dysmotility. She has history of tracheomalacia and tracheal stent. She has a history of BiPAP, history of hypertension, history of renal mass, nephrolithiasis, anemia, meningioma, history of paraspinous mass, history of thyroid mass, history of colloid nodule, porcelain gallbladder, had an adnexal cyst, breast cancer, lumpectomy, obesity and obesity hypoventilation syndrome. As I mentioned, she has hypertension and anemia also. MEDICATIONS: Upon reviewing the MAR, she is on following medications. She is on amikacin, Zosyn, fluconazole, acetylcysteine, clonidine, bisacodyl, abx, carbidopa, Sensipar, Zofran, K-Dur, MiraLAX, Dulcolax, Catapres, insulin, Prevacid, and acetaminophen. Outside medications noted and reconciliated. ALLERGIES: No known allergies. SOCIAL HISTORY: Negative for smoking, alcohol or drug abuse. FAMILY HISTORY: Noncontributory. REVIEW OF SYSTEMS: CONSTITUTIONAL: She is alert and responsive. She is communicative. HEAD AND NECK: She is orally intubated. CARDIAC: No pressors. No chest pain. GASTROINTESTINAL: She has a rectal tube. No abdominal pain. GENITOURINARY: She has a Pagan. PULMONARY: On a vent. SKIN: No rash or itching. EXTREMITIES: No extremity pain. NEUROLOGIC: No seizures. She is alert and responsive. She came in with fevers. She has generalized fatigue and weakness. PHYSICAL EXAMINATION: VITAL SIGNS: On admission, her temperature is 102.4 degrees, currently temperature is 98.6 degrees, pulse rate 107, respiratory rate 20, blood pressure 120/66 and saturation 100% on FiO2 of 28%. She is on a vent. She is not on pressors. HEAD AND NECK: She is orally intubated. Eye exam, no icterus. Normocephalic. LUNGS: Bilateral rhonchi, rales, and crackles. HEART: Regular. No obvious gallop or rub. ABDOMEN: Soft. Positive bowel sounds. Nontender. SKIN: No rash. MUSCULOSKELETAL: No effusions. Legs are without cellulitis. PERIPHERAL VASCULAR: No cyanosis or gangrene. GENITOURINARY: She has a Pagan. Urine is slightly cloudy. LINE SITES: Without phlebitis. NEUROLOGIC: Generalized weakness, responsive, and communicative. She has a rectal tube. LABORATORY AND DIAGNOSTIC DATA: Initial UA had 1+ leukocyte esterase and 10-15 white blood cells, now followup had 2 to 4 white blood cells. Creatinine is 1.2. White count 14.3 and hemoglobin 9.9. White count yesterday 16.7. Cultures, C. difficile is negative. The patient's sputum culture grew out Pseudomonas, Lorena tropicalis. UA had yeast. Urine culture grew out E. coli. VRE and MRSA screens are positive. Blood cultures were negative. Imaging studies, chest x-ray today showed slightly improved congestion, otherwise, little changed yesterday's chest x-ray. The 02/21/2018 chest x-ray shows increased interstitial thickening and increased right lower lobe space disease. ASSESSMENT AND PLAN: 1. The patient came in with fevers, pneumonia, and is likely septic with elevated white count. Workup shows that she has Pseudomonas pneumonia, is at high risk for aspiration pneumonia. In addition, she had Escherichia coli urinary tract infection. The patient's Clostridium difficile is negative. The patient at risk for fungemia. Continue Zosyn, amikacin and Diflucan. Check sputum culture followup. Check labs and check chest x-ray. If the patient deteriorates, consider adding vancomycin because of previous colonized methicillin-resistant Staphylococcus aureus, however, previous sputum culture grew out Pseudomonas, rule out resistant Pseudomonas now. Continue Zosyn, amikacin and Diflucan to cover sepsis, pseudomonas, and Escherichia coli urinary tract infection, possible fungemia. Check followup labs and chest x-ray. Continue supportive care, ICU care, and vent care. 2. Hypertension. Blood pressure treatment per primary, Dr. Matos. 3. Respiratory failure, on vent, weaning per Dr. Matos. 4. Rectal tube and diarrhea. 5. Pagan. 6. Clostridium difficile negative. 7. Parkinson disease. 8. Dysphagia. 9. Aspiration risk. 10. 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 11. History of anemia. 12. Nephrolithiasis. 13. Meningioma. 14. History of breast cancer. 15. History of lumpectomy. 16. Obesity. 17. Obesity hypoventilation syndrome. 18. No known allergies. 19. Social history negative. 20. MAR was noted. 21. Case discussed with RN. 22. Family history noncontributory. 23. Continue treatments per primary consultants. Celia Capone M.D. DR: BILL JOB#: [id number] CC: WILLI
[2018-02-25] MEDS: Albuterol/Ipratropium 3ml neb HHN SCH ×6 (03:08→23:32)
[2018-02-25] MEDS: Acetylcysteine 20% Soln 4ml HHN SCH ×6 (03:08→23:32)
[2018-02-25] MEDS: Piperacillin/Tazobactam 3.375 GM in D5W 110 ML IVPB SCH ×3 (06:03→22:21)
[2018-02-25] MEDS: NovoLOG Insulin Flexpen SUBQ SCH ×3 (06:06→18:01)
[2018-02-25 06:17] LABS: BASOPHILS % (AUTO) 0.7 % (0.0-2.0); EOSINOPHILS % (AUTO) 1.7 % (0.0-3.0); HEMATOCRIT 29.5 % (37.0-47.0); LYMPHOCYTES % (AUTO) 10.3 % (20.0-45.0); MEAN CORPUSCULAR VOLUME 83 FL (80-99); MONOCYTES % (AUTO) 6.8 % (1.0-10.0); NEUTROPHILS % (AUTO) 80.6 % (45.0-75.0); PLATELET COUNT 284 K/UL (150-450); RED BLOOD COUNT 3.55 M/UL (4.20-5.40); RED CELL DISTRIBUTION WIDTH 14.4 % (11.6-14.8); WHITE BLOOD COUNT 14.5 K/UL (4.8-10.8)
[2018-02-25 06:38] LABS: ALANINE AMINOTRANSFERASE 12 U/L (12-78); ALBUMIN 2.1 G/DL (3.4-5.0); ALBUMIN/GLOBULIN RATIO 0.4 (1.0-2.7); ALKALINE PHOSPHATASE 83 U/L (46-116); ANION GAP 6 mmol/L (5-15); ASPARTATE AMINO TRANSFERASE 19 U/L (15-37); BILIRUBIN,TOTAL 0.3 MG/DL (0.2-1.0); BLOOD UREA NITROGEN 19 mg/dL (7-18); CALCIUM 9.8 MG/DL (8.5-10.1); CARBON DIOXIDE 31 MMOL/L (21-32); CHLORIDE 101 MMOL/L (98-107); CREATININE 1.1 MG/DL (0.55-1.30); POTASSIUM 4.2 MMOL/L (3.5-5.1); SODIUM 138 MMOL/L (136-145)
[2018-02-25] MEDS: Acetaminophen 650mg/20.3ml NG PRN ×2 (09:09→15:57)
[2018-02-25] MEDS: Sensipar 30mg Tab ORAL SCH (09:19)
[2018-02-25] MEDS: Levodopa/Carbidopa 25/100 tab ORAL SCH ×3 (09:19→18:00)
[2018-02-25] MEDS ORDERED: Sterile Water Irrig 1000ml IRRIG ONE (14:56)
[2018-02-25] MEDS ORDERED: Tubing IV Secondary IV ONE (14:56)
--- NOTE | 2018-02-25 16:56 | Pulmonology Progress Note ---
Assessment/Plan Assessment/Plan 1. Acute respiratory failure. 2. Extensive pneumonia, left lung. 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 5. Parkinson's disease. 6. Esophageal dysmotility. 7. Morbid obesity with obesity hypoventilation syndrome. 8. Hypertension w LVH 9. Nephrolithiasis and renal mass. 10. History of breast cancer. alert, using letter board weaning trials not tolerated more than a few hrs spont TV poor 200 cc RR 38 with accessory muscle use tolerating feedings, good output WBC 14.5 no signs of sepsis disc w RN disc trach/PEG with her and she agreed spoke to son (ortho MD) again called ENT and GI disc subacute or LTAC placement Subjective ROS Limited/Unobtainable: Yes Allergies: Coded Allergies: No Known Allergies (Unverified , 01/11/14) Objective Last 24 Hour Vital Signs Date Time Temp Pulse Resp B/P (MAP) Pulse Ox O2 Delivery O2 Flow Rate FiO2 02/25/18 16:27 98.7 02/25/18 16:00 114 02/25/18 15:57 98.7 02/25/18 15:28 116 24 96 Mechanical Ventilator 28 02/25/18 15:18 108 22 96 Mechanical Ventilator 28 02/25/18 15:15 108 23 28 02/25/18 14:00 102 19 137/72 (93) 96 02/25/18 13:10 104 26 28 02/25/18 13:00 98 19 115/67 (83) 96 02/25/18 12:00 98.7 99 16 120/97 (105) 100 98.7 02/25/18 12:00 28 02/25/18 12:00 Mechanical Ventilator 02/25/18 12:00 103 02/25/18 11:29 87 20 95 Mechanical Ventilator 28 02/25/18 11:19 85 22 94 Mechanical Ventilator 35 02/25/18 11:17 85 22 35 02/25/18 11:00 82 17 109/62 (78) 96 02/25/18 10:00 83 16 106/65 (79) 96 02/25/18 09:31 94 02/25/18 09:27 85 17 28 02/25/18 09:09 99.7 02/25/18 09:00 90 16 110/58 (75) 96 02/25/18 08:07 94 16 99 Mechanical Ventilator 28 02/25/18 08:00 28 02/25/18 08:00 99.7 86 16 114/54 (74) 100 99.7 02/25/18 08:00 93 02/25/18 08:00 Mechanical Ventilator 02/25/18 07:57 93 16 97 Mechanical Ventilator 28 02/25/18 07:54 93 16 28 02/25/18 07:00 94 16 103/58 (73) 96 02/25/18 06:00 99 16 114/68 (83) 98 02/25/18 05:17 98 16 28 02/25/18 05:00 99 16 113/71 (85) 95 02/25/18 04:00 28 02/25/18 04:00 99 02/25/18 04:00 Mechanical Ventilator 02/25/18 04:00 99.7 112 16 97/56 (70) 100 99.7 02/25/18 03:23 96 16 98 Mechanical Ventilator 28 02/25/18 03:08 98 16 98 Mechanical Ventilator 28 02/25/18 03:08 98 16 28 02/25/18 03:00 105 16 95/55 (68) 96 02/25/18 02:00 105 16 143/89 (107) 96 02/25/18 01:06 108 20 28 02/25/18 01:00 107 16 156/94 (114) 98 02/25/18 00:00 Mechanical Ventilator 02/25/18 00:00 115 02/25/18 00:00 99.4 112 16 108/70 (83) 100 99.4 02/24/18 23:17 114 16 100 Mechanical Ventilator 28 02/24/18 23:03 113 19 98 Mechanical Ventilator 28 02/24/18 23:01 113 19 28 02/24/18 23:00 112 16 134/69 (90) 100 02/24/18 22:00 109 16 145/84 (104) 94 02/24/18 21:16 111 23 28 02/24/18 21:00 107 20 123/86 (98) 94 02/24/18 20:00 Mechanical Ventilator 02/24/18 20:00 98.3 111 18 146/94 (111) 96 98.3 02/24/18 20:00 28 02/24/18 20:00 111 02/24/18 19:42 109 17 100 Mechanical Ventilator 28 02/24/18 19:27 109 20 98 Mechanical Ventilator 28 02/24/18 19:26 109 20 28 02/24/18 19:00 107 20 120/66 (84) 100 02/24/18 18:00 105 20 122/62 (82) 100 02/24/18 17:00 103 18 115/68 (84) 100 02/24/18 16:58 107 21 28 Intake and Output 02/24/18 02/25/18 19:00 07:00 Intake Total 777.5 ml 742.5 ml Output Total 1030 ml 1155 ml Balance -252.5 ml -412.5 ml IV Total 137.5 ml 82.5 ml Tube Feeding 640 ml 600 ml Other 60 ml Output Urine Total 1030 ml 1155 ml # Bowel Movements 100 Objective morbidly obese General Appearance: no acute distress Respiratory/Chest: rhonchi Cardiovascular: normal rate Abdomen: soft, non tender Microbiology Date/Time Source Procedure Growth Status 02/23/18 19:10 Blood Blood Culture - Preliminary NO GROWTH AFTER 24 HOURS Resulted 02/23/18 18:50 Blood Blood Culture - Preliminary NO GROWTH AFTER 24 HOURS Resulted 02/23/18 12:30 Sputum Gram Stain - Final Resulted 02/23/18 12:30 Sputum Culture - Preliminary Gram Negative Bacillus 1 Resulted 02/23/18 12:30 Urine,Clean Catch Urine Culture - Preliminary Yeast Species Resulted Laboratory Tests 02/25/18 05:30: White Blood Count 14.5H, Red Blood Count 3.55L, Hemoglobin 9.0L, Hematocrit 29.5L, Mean Corpuscular Volume 83, Mean Corpuscular Hemoglobin 25.5L, Mean Corpuscular Hemoglobin Concent 30.6L, Red Cell Distribution Width 14.4, Platelet Count 284, Mean Platelet Volume 6.9, Neutrophils (%) (Auto) 80.6H, Lymphocytes (%) (Auto) 10.3L, Monocytes (%) (Auto) 6.8, Eosinophils (%) (Auto) 1.7, Basophils (%) (Auto) 0.7, Sodium Level 138, Potassium Level 4.2, Chloride Level 101, Carbon Dioxide Level 31, Anion Gap 6, Blood Urea Nitrogen 19H, Creatinine 1.1, Estimat Glomerular Filtration Rate , Glucose Level 158H, Calcium Level 9.8, Total Bilirubin 0.3, Aspartate Amino Transf (AST/SGOT) 19, Alanine Aminotransferase (ALT/SGPT) 12, Alkaline Phosphatase 83, Pro-B-Type Natriuretic Peptide 679H, Total Protein 7.0, Albumin 2.1L, Globulin 4.9, Albumin /Globulin Ratio 0.4L Current Medications Medications (Trade) Dose Ordered Sig/Roro Route PRN Reason Start Time Stop Time Status Last Admin Dose Admin Acetaminophen (Tylenol) 650 mg Q4H PRN NG Fever/Headache/Mild Pain 02/12/18 02:45 03/14/18 02:44 02/25/18 15:57 Acetylcysteine (Mucomyst) 200 mg Q4HRT N 02/21/18 23:00 03/23/18 22:59 02/25/18 15:18 Albuterol/ Ipratropium (Albuterol/ Ipratropium) 3 ml Q4HRT N 02/21/18 19:00 02/26/18 18:59 02/25/18 15:17 Amikacin Protocol (Amikacin pharmacy to dose) 1 ea DAILY PRN MISC Per rx protocol 02/23/18 15:45 03/25/18 15:44 Amikacin Sulfate 1300 mg/Sodium Chloride 115.2 ml @ 115.2 mls/ hr Q48H IV 02/25/18 20:00 03/04/18 19:59 Bisacodyl (Dulcolax) 10 mg DAILYPRN PRN RECTAL Constipation 02/20/18 20:15 03/16/18 19:14 Carbidopa/Levodopa (Sinemet 25/100) 1 tab THREE TIMES A DAY ORAL 02/12/18 13:00 03/14/18 12:59 02/25/18 13:22 Cinacalcet (Sensipar) 30 mg DAILY ORAL 02/13/18 09:00 03/15/18 08:59 02/25/18 09:19 Clonidine HCl (Catapres Tab) 0.1 mg Q4H PRN ORAL For SBP>170 02/21/18 09:30 03/23/18 09:29 02/21/18 10:45 Fluconazole (Diflucan) 200 mg Q24H ORAL 02/23/18 18:00 03/02/18 17:59 02/24/18 18:10 Insulin Aspart (NovoLOG) 4 units NOVOTIAC SUBQ 02/12/18 11:50 03/14/18 11:49 02/25/18 06:06 Lansoprazole (Prevacid) 30 mg ACBREAKFAST NG 02/12/18 06:30 03/14/18 06:29 02/25/18 06:03 Ondansetron HCl (Zofran) 4 mg Q4H PRN IVP Nausea & Vomiting 02/13/18 10:30 03/15/18 10:29 02/22/18 23:28 Piperacillin Sod/ Tazobactam Sod 3.375 gm/Dextrose 110 ml @ 27.5 mls/hr EVERY 8 HOURS IVPB 02/23/18 22:00 03/08/18 21:59 02/25/18 13:00 Polyethylene Glycol (Miralax) 17 gm DAILYPRN PRN ORAL Constipation 02/20/18 20:00 03/22/18 19:59 Potassium Chloride (K-Dur) 20 meq TWICE A DAY NGT 02/16/18 10:00 03/18/18 09:59 02/25/18 09:19 Gómez Matos MD Feb 25, 2018 16:56
[2018-02-25] MEDS: Fluconazole 100mg tab ORAL SCH (17:59)
[2018-02-25] MEDS ORDERED: NS IV SCH (20:00)
[2018-02-25] MEDS ORDERED: AMIKACIN IV SCH (20:00)
[2018-02-26] VITALS (25 sets, daily range): BP systolic 92–190; BP diastolic 56–158
[2018-02-26] MEDS: Acetylcysteine 20% Soln 4ml HHN SCH ×5 (03:00→23:07)
[2018-02-26] MEDS: Albuterol/Ipratropium 3ml neb HHN SCH ×5 (03:00→23:07)
[2018-02-26] MEDS: Acetaminophen 650mg/20.3ml NG PRN (03:31)
[2018-02-26 04:22] LABS: HEMATOCRIT 30.3 % (37.0-47.0); HEMOGLOBIN 9.6 G/DL (12.0-16.0); MEAN CORPUSCULAR VOLUME 82 FL (80-99); PLATELET COUNT 341 K/UL (150-450); RED BLOOD COUNT 3.68 M/UL (4.20-5.40); RED CELL DISTRIBUTION WIDTH 14.7 % (11.6-14.8); WHITE BLOOD COUNT 18.1 K/UL (4.8-10.8)
[2018-02-26 04:37] LABS: ALANINE AMINOTRANSFERASE 13 U/L (12-78); ALBUMIN 2.2 G/DL (3.4-5.0); ALBUMIN/GLOBULIN RATIO 0.4 (1.0-2.7); ALKALINE PHOSPHATASE 97 U/L (46-116); ANION GAP 9 mmol/L (5-15); ASPARTATE AMINO TRANSFERASE 15 U/L (15-37); BILIRUBIN,TOTAL 0.4 MG/DL (0.2-1.0); BLOOD UREA NITROGEN 19 mg/dL (7-18); CALCIUM 10.2 MG/DL (8.5-10.1); CARBON DIOXIDE 28 MMOL/L (21-32); CHLORIDE 99 MMOL/L (98-107); CREATININE 1.2 MG/DL (0.55-1.30); POTASSIUM 4.6 MMOL/L (3.5-5.1); SODIUM 136 MMOL/L (136-145)
[2018-02-26] MEDS: LORazepam Inj 2mg/ml 1ml IV PRN (04:48)
[2018-02-26] MEDS: Vancomycin 750mg/NS 250ml IVPB SCH ×2 (06:11→18:23)
[2018-02-26] MEDS: Piperacillin/Tazobactam 3.375 GM in D5W 110 ML IVPB SCH (06:13)
[2018-02-26] MEDS: NovoLOG Insulin Flexpen SUBQ SCH ×3 (06:22→18:24)
[2018-02-26] MEDS ORDERED: NS Irrig 1000ml ONE (07:00)
[2018-02-26] MEDS: Sensipar 30mg Tab ORAL SCH (10:04)
[2018-02-26] MEDS: Levodopa/Carbidopa 25/100 tab ORAL SCH ×3 (10:06→20:19)
[2018-02-26] MEDS: Polymyxin B Sulfate 500,000 UNITS in D5W 500ml 550 ML IV SCH ×2 (10:16→20:25)
[2018-02-26] MEDS: Meropenem 1 GM in NS 55 ML IVPB SCH ×2 (10:16→21:47)
--- NOTE | 2018-02-26 11:07 | Pre-Procedure Note/Attestation ---
Pre-Procedure Note/Attestation Complete Prior to Procedure Planned Procedure: not applicable Procedure Narrative: tracheostomy Indications for Procedure Pre-Operative Diagnosis: respiratory insufficiency requiring prolonged ventilatory support Attestation I attest that I discussed the nature of the procedure; its benefits; risks and complications; and alternatives (and the risks and benefits of such alternatives ), prior to the procedure, with the patient (or the patient's legal client account representative). I attest that, if there was a reasonable possibility of needing a blood transfusion, the patient (or the patient's legal client account representative) was given the [facility] standardized written summary, pursuant to the Aamir Michelle Blood Safety Act ([place] Health and Safety Code # 1645, as amended). I attest that I re-evaluated the patient just prior to the surgery and that there has been no change in the patient's H&P, except as documented below: Chuck Villeda Feb 26, 2018 11:07
--- NOTE | 2018-02-26 11:12 | Consultation ---
History of Present Illness General Date patient seen: Feb 26, 2018 Chief Complaint: Dyspnea/Respdistress Present Illness HPI 82-year-old female, who is currently in ICU at [facility]. The patient presented with fevers of 102 on admission. Chest x-ray showed the patient to have pneumonia. Workup showed that the patient has Pseudomonas pneumonia. Since she has been in the ICU on intubated with ET tube on ventilatory support. Anticipate prolonged ventilatory support required and has had ET tube in place for some time. Surgery called to evaluate for possible Tracheostomy. Patient has history of tracheomalacia and prior stent placement. patient seen, chart reviewed, patient examined. Allergies: Coded Allergies: No Known Allergies (Unverified , 01/11/14) Medication History Scheduled Amlodipine Besylate (Norvasc), 5 MG ORAL DAILY Ascorbic Acid* (Vitamin C*), 500 MG ORAL DAILY, (Reported) Carbidopa/Levodopa 25-100 Mg* (Sinemet 25-100 Mg Tablet*), 1 TAB ORAL THREE TIMES A DAY, (Reported) Celecoxib* (Celebrex*), 200 MG ORAL DAILY, (Reported) Cholecalciferol (Vitamin D3) (Vitamin D-3), 2,000 UNIT PO DAILY, (Reported) Cinacalcet* (Sensipar*), DAILY, (Reported) Estradiol (Estring), EVERY THREE MONTHS, (Reported) Fesoterodine Fumarate (Toviaz), 8 MG DAILY, (Reported) Fluticasone Propionate (Flonase Allergy Relief), 50 MCG NS BID, (Reported) Glucosamine Hcl (Glucosamine Hcl), 500 MG PO DAILY, (Reported) Losartan Potassium* (Losartan Potassium*), 25 MG ORAL DAILY Multivitamin (Multivitamins), 1 CAP ORAL DAILY, (Reported) Pantoprazole* (Protonix*), 40 MG ORAL EVERY 12 HOURS, (Reported) Zinc Sulfate (Zinc Sulfate*), 220 MG ORAL DAILY, (Reported) Miscellaneous Medications Azelastine Hcl (Azelastine Hcl), 137 MCG NS, (Reported) Patient History Limited by: medical condition History Provided By: Family Member, Medical Record, PMD Healthcare decision maker Resuscitation status Full Code Advanced Directive on File Past Medical/Surgical History Past Medical/Surgical History: (1) Parkinson disease (2) Peripheral edema (3) Purulent bronchitis (4) At high risk for aspiration (5) Morbid obesity with BMI of 50.0-59.9, adult (6) Healthcare associated bacterial pneumonia (7) Respiratory failure requiring intubation (8) Proteinuria (9) UTI (urinary tract infection) (10) Acute respiratory failure (11) Aspiration pneumonia (12) Sepsis Review of Systems All Other Systems: negative except mentioned in HPI ROS Narrative patient in ICU responsive with ET tube in place. Physical Exam General Appearance: no apparent distress HEENT: normocephalic, PERRL Neck: normal inspection Respiratory/Chest: on vent Cardiovascular/Chest: normal peripheral pulses, normal rate Abdomen: normal bowel sounds, non tender, soft, no organomegaly, no mass Extremities: non-tender, normal inspection Skin Exam: warm/dry Neurologic: alert, responsive Last 24 Hour Vital Signs Date Time Temp Pulse Resp B/P (MAP) Pulse Ox O2 Delivery O2 Flow Rate FiO2 02/26/18 10:49 113 16 40 02/26/18 10:45 113 20 97 Mechanical Ventilator 40 02/26/18 08:48 108 16 40 02/26/18 07:22 107 16 100 Mechanical Ventilator 40 02/26/18 07:14 108 18 100 Mechanical Ventilator 40 02/26/18 07:07 107 16 40 02/26/18 07:00 105 16 100/62 (75) 100 02/26/18 06:00 106 16 101/57 (72) 100 02/26/18 05:30 125 24 50 02/26/18 05:00 121 16 92/56 (68) 90 02/26/18 04:00 28 02/26/18 04:00 118 02/26/18 04:00 Mechanical Ventilator 02/26/18 04:00 99.1 119 16 121/89 (100) 94 99.1 02/26/18 03:31 172/158 02/26/18 03:31 98.7 02/26/18 03:23 130 27 28 02/26/18 03:22 130 23 92 Mechanical Ventilator 02/26/18 03:21 130 23 92 Mechanical Ventilator 02/26/18 03:00 131 16 172/158 (163) 94 02/26/18 02:00 131 16 190/86 (120) 94 02/26/18 01:22 110 20 28 02/26/18 01:00 131 16 160/75 (103) 94 02/26/18 00:00 127 16 175/77 (109) 94 02/26/18 00:00 28 18 00:00 111 02/26/18 00:00 Mechanical Ventilator 02/25/18 23:34 119 21 100 Mechanical Ventilator 02/25/18 23:33 116 20 97 Mechanical Ventilator 02/25/18 23:30 117 20 28 02/25/18 23:00 99.1 119 16 114/89 (97) 94 99.1 02/25/18 22:00 120 16 129/75 (93) 90 02/25/18 21:30 112 21 28 02/25/18 21:00 117 16 131/94 (106) 92 02/25/18 20:00 104 21 96 Mechanical Ventilator 02/25/18 20:00 113 02/25/18 20:00 Mechanical Ventilator 02/25/18 20:00 98.7 105 20 144/89 (107) 96 98.7 02/25/18 20:00 118 22 97 Mechanical Ventilator 02/25/18 20:00 28 02/25/18 19:30 115 22 28 02/25/18 19:00 105 20 137/76 (96) 96 02/25/18 18:00 92 19 126/55 (78) 96 02/25/18 17:16 111 21 28 02/25/18 17:00 89 19 121/62 (81) 96 02/25/18 16:27 98.7 02/25/18 16:00 114 02/25/18 16:00 Mechanical Ventilator 02/25/18 16:00 28 02/25/18 16:00 98.3 99 16 120/80 (93) 98 98.3 02/25/18 15:57 98.7 02/25/18 15:28 116 24 96 Mechanical Ventilator 28 02/25/18 15:18 108 22 96 Mechanical Ventilator 28 18 15:15 108 23 28 02/25/18 15:00 100 19 133/70 (91) 96 02/25/18 14:00 102 19 137/72 (93) 96 02/25/18 13:10 104 26 28 02/25/18 13:00 98 19 115/67 (83) 96 02/25/18 12:00 98.7 99 16 120/97 (105) 100 98.7 02/25/18 12:00 28 02/25/18 12:00 Mechanical Ventilator 02/25/18 12:00 103 02/25/18 11:29 87 20 95 Mechanical Ventilator 28 02/25/18 11:19 85 22 94 Mechanical Ventilator 35 02/25/18 11:17 85 22 35 Intake and Output 02/25/18 02/26/18 19:00 07:00 Intake Total 710.0 ml 660 ml Output Total 1200 ml 1050 ml Balance -490.0 ml -390 ml IV Total 110.0 ml Tube Feeding 600 ml 600 ml Other 60 ml Output Urine Total 1120 ml 950 ml Stool Total 80 ml 100 ml Laboratory Tests Test 02/26/18 03:55 02/26/18 04:00 Arterial Blood pH 7.461 (7.350-7.450) Arterial Blood Partial Pressure CO2 40.9 mmHg (35.0-45.0) Arterial Blood Partial Pressure O2 63.6 mmHg (75.0-100.0) L Arterial Blood HCO3 28.5 mmol/L (22.0-26.0) H Arterial Blood Oxygen Saturation 92.2 % (92.0-98.0) Arterial Blood Base Excess 4.3 Kerwin Test Positive White Blood Count 18.1 K/UL (4.8-10.8) H Red Blood Count 3.68 M/UL (4.20-5.40) L Hemoglobin 9.6 G/DL (12.0-16.0) L Hematocrit 30.3 % (37.0-47.0) L Mean Corpuscular Volume 82 FL (80-99) Mean Corpuscular Hemoglobin 26.1 PG (27.0-31.0) L Mean Corpuscular Hemoglobin Concent 31.7 G/DL (32.0-36.0) L Red Cell Distribution Width 14.7 % (11.6-14.8) Platelet Count 341 K/UL (150-450) Mean Platelet Volume 6.2 FL (6.5-10.1) L Neutrophils (%) (Auto) % (45.0-75.0) Lymphocytes (%) (Auto) % (20.0-45.0) Monocytes (%) (Auto) % (1.0-10.0) Eosinophils (%) (Auto) % (0.0-3.0) Basophils (%) (Auto) % (0.0-2.0) Differential Total Cells Counted 100 Neutrophils % (Manual) 86 % (45-75) H Lymphocytes % (Manual) 8 % (20-45) L Monocytes % (Manual) 5 % (1-10) Eosinophils % (Manual) 1 % (0-3) Basophils % (Manual) 0 % (0-2) Band Neutrophils 0 % (0-8) Platelet Estimate Adequate Platelet Morphology Normal Hypochromasia 1+ Activated Partial Thromboplast Time 29 SEC (23-33) Sodium Level 136 MMOL/L (136-145) Potassium Level 4.6 MMOL/L (3.5-5.1) Chloride Level 99 MMOL/L (98-107) Carbon Dioxide Level 28 MMOL/L (21-32) Anion Gap 9 mmol/L (5-15) Blood Urea Nitrogen 19 mg/dL (7-18) H Creatinine 1.2 MG/DL (0.55-1.30) Estimat Glomerular Filtration Rate mL/min (>60) Glucose Level 219 MG/DL (74-106) H Calcium Level 10.2 MG/DL (8.5-10.1) H Total Bilirubin 0.4 MG/DL (0.2-1.0) Aspartate Amino Transf (AST/SGOT) 15 U/L (15-37) Alanine Aminotransferase (ALT/SGPT) 13 U/L (12-78) Alkaline Phosphatase 97 U/L (46-116) Pro-B-Type Natriuretic Peptide 907 pg/mL (0-125) H Total Protein 7.5 G/DL (6.4-8.2) Albumin 2.2 G/DL (3.4-5.0) L Globulin 5.3 g/dL Albumin/Globulin Ratio 0.4 (1.0-2.7) L Height (Feet): 5 Height (Inches): 7.00 Weight (Pounds): 268 Medications Current Medications Medications (Trade) Dose Ordered Sig/Roro Route PRN Reason Start Time Stop Time Status Last Admin Dose Admin Acetaminophen (Tylenol) 650 mg Q4H PRN NG Fever/Headache/Mild Pain 02/12/18 02:45 03/14/18 02:44 02/26/18 03:31 Acetylcysteine (Mucomyst) 200 mg Q4HRT HHN 02/21/18 23:00 03/23/18 22:59 02/26/18 10:45 Albuterol/ Ipratropium (Albuterol/ Ipratropium) 3 ml Q4HRT HHN 02/21/18 19:00 02/26/18 18:59 02/26/18 10:45 Bisacodyl (Dulcolax) 10 mg DAILYPRN PRN RECTAL Constipation 02/20/18 20:15 03/16/18 19:14 Carbidopa/Levodopa (Sinemet 25/100) 1.5 tab THREE TIMES A DAY ORAL 02/25/18 18:00 03/14/18 12:59 02/26/18 10:06 Cinacalcet (Sensipar) 30 mg DAILY ORAL 02/13/18 09:00 03/15/18 08:59 02/26/18 10:04 Clonidine HCl (Catapres Tab) 0.1 mg Q4H PRN ORAL For SBP>170 02/21/18 09:30 03/23/18 09:29 02/26/18 03:31 Fluconazole/ Sodium Chloride 100 ml @ 100 mls/hr Q24H IV 02/27/18 12:00 03/06/18 11:59 Fluconazole/ Sodium Chloride 200 ml @ 100 mls/hr ONCE IV 02/26/18 11:00 02/26/18 12:00 Insulin Aspart (NovoLOG) 4 units NOVOTIAC SUBQ 02/12/18 11:50 03/14/18 11:49 02/26/18 06:22 Lansoprazole (Prevacid) 30 mg ACBREAKFAST NG 02/12/18 06:30 03/14/18 06:29 02/26/18 06:13 Lorazepam (Ativan 2mg/ml 1ml) 0.5 mg Q3H PRN IV For Anxiety 02/26/18 04:45 03/05/18 04:44 02/26/18 04:48 Meropenem 1 gm/ Sodium Chloride 55 ml @ 110 mls/hr Q12H IVPB 02/26/18 10:00 03/03/18 09:59 02/26/18 10:16 Non-Formulary Medication (Non-Formulary Med) 1 ea DAILY TOPIC 02/26/18 09:00 03/28/18 08:59 UNV Ondansetron HCl (Zofran) 4 mg Q4H PRN IVP Nausea & Vomiting 02/13/18 10:30 03/15/18 10:29 02/26/18 10:04 Polyethylene Glycol (Miralax) 17 gm DAILYPRN PRN ORAL Constipation 02/20/18 20:00 03/22/18 19:59 Polymyxin B Sulfate 269320 units/Dextrose 550 ml @ 550 mls/hr EVERY 12 HOURS IV 02/26/18 09:00 03/05/18 08:59 02/26/18 10:16 Potassium Chloride (K-Dur) 20 meq TWICE A DAY NGT 02/16/18 10:00 03/18/18 09:59 02/26/18 10:07 Vancomycin HCl (Vanco rx to dose) 1 ea DAILY PRN MISC Per rx protocol 02/26/18 04:45 03/28/18 04:44 Vancomycin/Sodium Chloride 250 ml @ 166.667 mls/hr Q12H IVPB 02/26/18 06:00 03/03/18 05:59 02/26/18 06:11 Assessment/Plan Problem List: (1) Respiratory failure requiring intubation ICD Codes: J96.90 - Respiratory failure, unspecified, unspecified whether with hypoxia or hypercapnia; Z68.43 - Body mass index (BMI) 50-59.9 , adult SNOMED: 485176939, [id number] (2) Aspiration pneumonia ICD Codes: J69.0 - Pneumonitis due to inhalation of food and vomit SNOMED: 672617492, [id number] Qualifiers: Qualified Codes: J69.0 - Pneumonitis due to inhalation of food and vomit (3) Acute respiratory failure ICD Codes: J96.00 - Acute respiratory failure, unspecified whether with hypoxia or hypercapnia SNOMED: 83032432 Qualifiers: Qualified Codes: J96.01 - Acute respiratory failure with hypoxia; J96.02 - Acute respiratory failure with hypercapnia Assessment/Plan History as noted above. Patient with ET tube in place for some time and requiring vent support. unlikely to be safely extubated soon. would benefit from tracheostomy. spoke with family and discussed care. spoke with team, rn's and staff. Plan for tracheostomy npo consent will require bronchoscopy prior to evaluate stent Chuck Villeda Feb 26, 2018 11:12
--- NOTE | 2018-02-26 11:49 | Pulmonology Progress Note ---
Assessment/Plan Assessment/Plan 1. Acute respiratory failure. 2. Extensive pneumonia, left lung. 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 5. Parkinson's disease. 6. Esophageal dysmotility. 7. Morbid obesity with obesity hypoventilation syndrome. 8. Hypertension w LVH 9. Nephrolithiasis and renal mass. 10. History of breast cancer. resp distress during the night with HR 131 CXR with new infiltrate RLL WBC up to 18k additional abx ordered - disc w ID disc w RN disc trach/PEG GI and surgery disc subacute or LTAC placement with director of casework services Subjective Constitutional: Reports: fever - low grade Respiratory: Reports: productive cough, shortness of breath Allergies: Coded Allergies: No Known Allergies (Unverified , 01/11/14) Objective Last 24 Hour Vital Signs Date Time Temp Pulse Resp B/P (MAP) Pulse Ox O2 Delivery O2 Flow Rate FiO2 02/26/18 10:55 115 20 99 Mechanical Ventilator 40 02/26/18 10:49 113 16 40 02/26/18 10:45 113 20 97 Mechanical Ventilator 40 02/26/18 08:48 108 16 40 02/26/18 08:00 52 02/26/18 08:00 28 02/26/18 07:22 107 16 100 Mechanical Ventilator 40 02/26/18 07:14 108 18 100 Mechanical Ventilator 40 02/26/18 07:07 107 16 40 02/26/18 07:00 105 16 100/62 (75) 100 02/26/18 06:00 106 16 101/57 (72) 100 02/26/18 05:30 125 24 50 02/26/18 05:00 121 16 92/56 (68) 90 02/26/18 04:00 28 02/26/18 04:00 118 02/26/18 04:00 Mechanical Ventilator 02/26/18 04:00 99.1 119 16 121/89 (100) 94 99.1 02/26/18 03:31 172/158 02/26/18 03:31 98.7 02/26/18 03:23 130 27 28 02/26/18 03:22 130 23 92 Mechanical Ventilator 02/26/18 03:21 130 23 92 Mechanical Ventilator 02/26/18 03:00 131 16 172/158 (163) 94 02/26/18 02:00 131 16 190/86 (120) 94 8 01:22 110 20 28 818 01:00 131 16 160/75 (103) 94 18 00:00 127 16 175/77 (109) 94 818 00:00 28 818 00:00 111 8 00:00 Mechanical Ventilator 02/25/18 23:34 119 21 100 Mechanical Ventilator 02/25/18 23:33 116 20 97 Mechanical Ventilator 02/25/18 23:30 117 20 28 02/25/18 23:00 99.1 119 16 114/89 (97) 94 99.1 02/25/18 22:00 120 16 129/75 (93) 90 02/25/18 21:30 112 21 28 02/25/18 21:00 117 16 131/94 (106) 92 02/25/18 20:00 104 21 96 Mechanical Ventilator 02/25/18 20:00 113 02/25/18 20:00 Mechanical Ventilator 02/25/18 20:00 98.7 105 20 144/89 (107) 96 98.7 02/25/18 20:00 118 22 97 Mechanical Ventilator 02/25/18 20:00 28 02/25/18 19:30 115 22 28 02/25/18 19:00 105 20 137/76 (96) 96 02/25/18 18:00 92 19 126/55 (78) 96 18 17:16 111 21 28 18 17:00 89 19 121/62 (81) 96 02/25/18 16:27 98.7 02/25/18 16:00 114 02/25/18 16:00 Mechanical Ventilator 18 16:00 28 18 16:00 98.3 99 16 120/80 (93) 98 98.3 18 15:57 98.7 18 15:28 116 24 96 Mechanical Ventilator 28 18 15:18 108 22 96 Mechanical Ventilator 28 18 15:15 108 23 28 8/18 15:00 100 19 133/70 (91) 96 18 14:00 102 19 137/72 (93) 96 18 13:10 104 26 28 18 13:00 98 19 115/67 (83) 96 02/25/18 12:00 98.7 99 16 120/97 (105) 100 98.7 02/25/18 12:00 28 02/25/18 12:00 Mechanical Ventilator 02/25/18 12:00 103 Intake and Output 02/25/18 02/26/18 19:00 07:00 Intake Total 710.0 ml 660 ml Output Total 1200 ml 1050 ml Balance -490.0 ml -390 ml IV Total 110.0 ml Tube Feeding 600 ml 600 ml Other 60 ml Output Urine Total 1120 ml 950 ml Stool Total 80 ml 100 ml Objective morbidly obese General Appearance: no acute distress - in distress early AM HEENT: normocephalic Respiratory/Chest: decreased breath sounds, rhonchi Cardiovascular: tachycardia Abdomen: soft, non tender Microbiology Date/Time Source Procedure Growth Status 02/23/18 19:10 Blood Blood Culture - Preliminary NO GROWTH AFTER 48 HOURS Resulted 02/23/18 18:50 Blood Blood Culture - Preliminary NO GROWTH AFTER 48 HOURS Resulted 02/26/18 07:40 Sputum Gram Stain - Final Resulted 02/26/18 07:40 Sputum Sputum Culture Pending Resulted 02/23/18 12:30 Sputum Gram Stain - Final Complete 02/23/18 12:30 Sputum Culture - Final Pseudomonas Aeruginosa Complete 02/23/18 12:30 Urine,Clean Catch Urine Culture - Final Lorena Albicans Complete Laboratory Tests 02/26/18 03:55: Arterial Blood pH 7.461H, Arterial Blood Partial Pressure CO2 40.9, Arterial Blood Partial Pressure O2 63.6L, Arterial Blood HCO3 28.5H, Arterial Blood Oxygen Saturation 92.2, Arterial Blood Base Excess 4.3, Kerwin Test Positive 02/26/18 04:00: White Blood Count 18.1H, Red Blood Count 3.68L, Hemoglobin 9.6L, Hematocrit 30.3L, Mean Corpuscular Volume 82, Mean Corpuscular Hemoglobin 26.1L, Mean Corpuscular Hemoglobin Concent 31.7L, Red Cell Distribution Width 14.7, Platelet Count 341, Mean Platelet Volume 6.2L, Neutrophils (%) (Auto) , Lymphocytes (%) (Auto) , Monocytes (%) (Auto) , Eosinophils (%) (Auto) , Basophils (%) (Auto) , Differential Total Cells Counted 100, Neutrophils % ( Manual) 86H, Lymphocytes % (Manual) 8L, Monocytes % (Manual) 5, Eosinophils % ( Manual) 1, Basophils % (Manual) 0, Band Neutrophils 0, Platelet Estimate Adequate, Platelet Morphology Normal, Hypochromasia 1+, Activated Partial Thromboplast Time 29, Sodium Level 136, Potassium Level 4.6, Chloride Level 99, Carbon Dioxide Level 28, Anion Gap 9, Blood Urea Nitrogen 19H, Creatinine 1.2, Estimat Glomerular Filtration Rate , Glucose Level 219H, Calcium Level 10.2H, Total Bilirubin 0.4, Aspartate Amino Transf (AST/SGOT) 15, Alanine Aminotransferase (ALT/SGPT) 13, Alkaline Phosphatase 97, Pro-B-Type Natriuretic Peptide 907H, Total Protein 7.5, Albumin 2.2L, Globulin 5.3, Albumin/Globulin Ratio 0.4L Current Medications Medications (Trade) Dose Ordered Sig/Roro Route PRN Reason Start Time Stop Time Status Last Admin Dose Admin Acetaminophen (Tylenol) 650 mg Q4H PRN NG Fever/Headache/Mild Pain 02/12/18 02:45 03/14/18 02:44 02/26/18 03:31 Acetylcysteine (Mucomyst) 200 mg Q4HRT N 02/21/18 23:00 03/23/18 22:59 02/26/18 10:45 Albuterol/ Ipratropium (Albuterol/ Ipratropium) 3 ml Q4HRT N 02/21/18 19:00 02/26/18 18:59 02/26/18 10:45 Bisacodyl (Dulcolax) 10 mg DAILYPRN PRN RECTAL Constipation 02/20/18 20:15 03/16/18 19:14 Carbidopa/Levodopa (Sinemet 25/100) 1.5 tab THREE TIMES A DAY ORAL 02/25/18 18:00 03/14/18 12:59 02/26/18 10:06 Cinacalcet (Sensipar) 30 mg DAILY ORAL 02/13/18 09:00 03/15/18 08:59 02/26/18 10:04 Clonidine HCl (Catapres Tab) 0.1 mg Q4H PRN ORAL For SBP>170 02/21/18 09:30 03/23/18 09:29 02/26/18 03:31 Fluconazole/ Sodium Chloride 100 ml @ 100 mls/hr Q24H IV 02/27/18 12:00 03/06/18 11:59 Fluconazole/ Sodium Chloride 200 ml @ 100 mls/hr ONCE IV 02/26/18 11:00 02/26/18 12:00 Insulin Aspart (NovoLOG) 4 units NOVOTIAC SUBQ 02/12/18 11:50 03/14/18 11:49 02/26/18 11:42 Lansoprazole (Prevacid) 30 mg ACBREAKFAST NG 02/12/18 06:30 03/14/18 06:29 02/26/18 06:13 Lorazepam (Ativan 2mg/ml 1ml) 0.5 mg Q3H PRN IV For Anxiety 02/26/18 04:45 03/05/18 04:44 02/26/18 04:48 Meropenem 1 gm/ Sodium Chloride 55 ml @ 110 mls/hr Q12H IVPB 02/26/18 10:00 03/03/18 09:59 02/26/18 10:16 Non-Formulary Medication (Non-Formulary Med) 1 ea DAILY TOPIC 02/26/18 09:00 03/28/18 08:59 UNV Ondansetron HCl (Zofran) 4 mg Q4H PRN IVP Nausea & Vomiting 02/13/18 10:30 03/15/18 10:29 02/26/18 10:04 Polyethylene Glycol (Miralax) 17 gm DAILYPRN PRN ORAL Constipation 02/20/18 20:00 03/22/18 19:59 Polymyxin B Sulfate 520663 units/Dextrose 550 ml @ 550 mls/hr EVERY 12 HOURS IV 02/26/18 09:00 03/05/18 08:59 02/26/18 10:16 Potassium Chloride (K-Dur) 20 meq TWICE A DAY NGT 02/16/18 10:00 03/18/18 09:59 02/26/18 10:07 Vancomycin HCl (Vanco rx to dose) 1 ea DAILY PRN MISC Per rx protocol 02/26/18 04:45 03/28/18 04:44 Vancomycin/Sodium Chloride 250 ml @ 166.667 mls/hr Q12H IVPB 02/26/18 06:00 03/03/18 05:59 02/26/18 06:11 Gómez Matos MD Feb 26, 2018 11:48
[2018-02-26] MEDS ORDERED: Zemuron 50mg/5ml Inj IV ONE (12:57)
[2018-02-26] MEDS ORDERED: Lidocaine 1% Plain 30 ml INJ ONE (14:05)
--- NOTE | 2018-02-26 14:54 | Diagnostic Imaging Report ---
Indication: Shortness of breath Technique: One view of the chest Comparison: A 08/15/2017 Findings: Increased consolidation is seen in the right perihilar region and right lung base. There is increased consolidation of the left lung base. There is generalized mild interstitial congestion again demonstrated. There is probably some pleural fluid on the left. The heart is borderline enlarged. The aorta is tortuous. Again demonstrated are endotracheal and nasogastric tube and a mediastinal stent. Impression: Worsening bilateral basilar infiltrates versus edema, over 2 days This agrees with the preliminary interpretation provided overnight by [facility] teleradiology service.
--- NOTE | 2018-02-26 15:00 | Anethesia Preoperative Eval ---
Anesthesia Pre-op PMH/ROS General Date of Evaluation: Feb 26, 2018 Time of Evaluation: 13:00 Anesthesiologist: lisa ASA Score: ASA 4 Mallampati Score Class I : Soft palate, uvula, fauces, pillars visible Class II: Soft palate, uvula, fauces visible Class III: Soft palate, base of uvula visible Class IV: Only hard plate visible Mallampati Classification: Class III Surgeon: effie Diagnosis: acute resp failure Surgical Procedure: Tracheostomy Anesthesia History: none Family History: no anesthesia problems Allergies: Coded Allergies: No Known Allergies (Unverified , 01/11/14) Medications: see eMAR Past Medical History Cardiovascular: Reports: HTN, CAD Pulmonary: Reports: other - ventilated; hx of trachia stent; pneumonia; acute resp failure; Denies: asthma, COPD, MIRIAM Gastrointestinal/Genitourinary: Denies: GERD, CRI, ESRD, other Neurologic/Psychiatric: Reports: other - parkinson's; Denies: dementia, CVA, depression/anxiety, TIA Endocrine: Denies: DM, hypothyroidism, steroids, other HEENT: Denies: cataract (L), cataract (R), glaucoma, ANGOON (L), ANGOON (R), other Hematology/Immune: Reports: anemia; Denies: DVT, bleeding disorder, other Musculoskeletal/Integumentary: Denies: OA, RA, DJD, DDD, edema, other Other: obesity PMH Narrative: 1. Acute respiratory failure. 2. Extensive pneumonia, left lung. 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 5. Parkinson's disease. 6. Esophageal dysmotility. 7. Morbid obesity with obesity hypoventilation syndrome. 8. Hypertension w LVH 9. Nephrolithiasis and renal mass. 10. History of breast cancer. Anesthesia Pre-op Phys. Exam Physician Exam Last Vital Signs Date Time Temp Pulse Resp B/P (MAP) Pulse Ox O2 Delivery O2 Flow Rate FiO2 02/26/18 13:10 110 18 40 02/26/18 13:00 127/72 (90) 97 02/26/18 12:00 Mechanical Ventilator 02/26/18 08:00 99.4 99.4 Constitutional: other - currently ventilated; questionable mental status; vss Neurologic: other - ventilated; follows commands Cardiovascular: RRR - st Respiratory: other - ronchi Gastrointestinal: S/NT/ND Airway Exam Mallampati Classification 3 Mallampati Score: Class III MO: limited ROM: full Dentures: no upper, no lower Anesthesia Pre-op A/P Labs Hematology Test 02/26/18 04:00 White Blood Count 18.1 K/UL (4.8-10.8) H Red Blood Count 3.68 M/UL (4.20-5.40) L Hemoglobin 9.6 G/DL (12.0-16.0) L Hematocrit 30.3 % (37.0-47.0) L Mean Corpuscular Volume 82 FL (80-99) Mean Corpuscular Hemoglobin 26.1 PG (27.0-31.0) L Mean Corpuscular Hemoglobin Concent 31.7 G/DL (32.0-36.0) L Red Cell Distribution Width 14.7 % (11.6-14.8) Platelet Count 341 K/UL (150-450) Mean Platelet Volume 6.2 FL (6.5-10.1) L Neutrophils (%) (Auto) % (45.0-75.0) Lymphocytes (%) (Auto) % (20.0-45.0) Monocytes (%) (Auto) % (1.0-10.0) Eosinophils (%) (Auto) % (0.0-3.0) Basophils (%) (Auto) % (0.0-2.0) Differential Total Cells Counted 100 Neutrophils % (Manual) 86 % (45-75) H Lymphocytes % (Manual) 8 % (20-45) L Monocytes % (Manual) 5 % (1-10) Eosinophils % (Manual) 1 % (0-3) Basophils % (Manual) 0 % (0-2) Band Neutrophils 0 % (0-8) Platelet Estimate Adequate Platelet Morphology Normal Hypochromasia 1+ Coagulation Test 02/26/18 04:00 Activated Partial Thromboplast Time 29 SEC (23-33) Chemistry Test 02/26/18 04:00 Sodium Level 136 MMOL/L (136-145) Potassium Level 4.6 MMOL/L (3.5-5.1) Chloride Level 99 MMOL/L (98-107) Carbon Dioxide Level 28 MMOL/L (21-32) Anion Gap 9 mmol/L (5-15) Blood Urea Nitrogen 19 mg/dL (7-18) H Creatinine 1.2 MG/DL (0.55-1.30) Estimat Glomerular Filtration Rate mL/min (>60) Glucose Level 219 MG/DL (74-106) H Calcium Level 10.2 MG/DL (8.5-10.1) H Total Bilirubin 0.4 MG/DL (0.2-1.0) Aspartate Amino Transf (AST/SGOT) 15 U/L (15-37) Alanine Aminotransferase (ALT/SGPT) 13 U/L (12-78) Alkaline Phosphatase 97 U/L (46-116) Pro-B-Type Natriuretic Peptide 907 pg/mL (0-125) H Total Protein 7.5 G/DL (6.4-8.2) Albumin 2.2 G/DL (3.4-5.0) L Globulin 5.3 g/dL Albumin/Globulin Ratio 0.4 (1.0-2.7) L Studies Pre-op Studies: EKG - st Risk Assessment & Plan Assessment: vss; ventilated Plan: general Status Change Before Surgery: No Pre-Antibiotics Drug: declined by surgeon Felicita Law CRNA Feb 26, 2018 15:00
--- NOTE | 2018-02-26 15:01 | Immediate Post-Op Evaluation ---
Immediate Post-Op Evalulation Immediate Post-Op Evalulation Procedure: tracheostomy Date of Evaluation: Feb 26, 2018 Time of Evaluation: 15:01 IV Fluids: 500 Blood Pressure Systolic: 126 Blood Pressure Diastolic: 80 Pulse Rate: 90 Respiratory Rate: 16 O2 Sat by Pulse Oximetry: 90 Nausea: No Vomiting: No Complications none Patient Status: reacts, ventilated - AC 500; 16; 40% 5 Hydration Status: adequate Drug: declined Felicita Law CRNA Feb 26, 2018 15:01
--- NOTE | 2018-02-26 15:03 | Brief Operative Note ---
Immediate Post Operative Note Operative Note Pre-op Diagnosis: respiratory insufficiency requiring prolonged ventilatory support Procedure: 1. bronchoscopy 2. tracheostomy 3. removal of tracheal stent Post-op Diagnosis: same as pre-op Surgeon: julisa Anesthesiologist: son Anesthesia: general Specimen: yes Complications: none Condition: stable Fluids: see records Estimated Blood Loss: minimal Drains: none Implant(s) used?: No Chuck Villeda Feb 26, 2018 15:03
[2018-02-26] MEDS ORDERED: Morphine Sulfate 4mg/ml Inj (IV USE ONLY) IVP PRN (15:45)
--- NOTE | 2018-02-26 16:20 | Diagnostic Imaging Report ---
Indication: Post nasogastric tube placement Technique: Supine view of the abdomen Comparison: 02/18/2018 Findings: There is a nasal gas tube in place, tip of which projects in the gastric fundus, the proximal port projecting at the level gastroesophageal junction. There is an ovoid eggshell calcification in the right mid abdomen. This measures 4.3 x 3.5 cm. There are degenerative changes of the lumbar spine. Impression: Somewhat high position of nasogastric tube. Further advancement recommended. This finding was conveyed to patient's nurse, Mamadou, in the ICU at the time of interpretation Right midabdomen eggshell calcification. This may represent an old inflammatory lesion, porcelain gallbladder, less likely visceral artery aneurysm, among other possibilities. In retrospect evident on prior exam, more clearly visible currently Degenerative spondylosis incidentally noted
--- NOTE | 2018-02-26 16:22 | Diagnostic Imaging Report ---
. Indication: Shortness of breath Technique: One view of the chest Comparison: 11 hours earlier Findings: Bilateral basilar infiltrates are again demonstrated. The heart is enlarged. There is probably pleural fluid on the left. Nasogastric tube is demonstrated, tip better visualized on abdomen radiograph performed at the same time. Interim conversion of endotracheal tube to a tracheostomy. No evidence of pneumothorax or pneumomediastinum. Impression: Interim conversion of endotracheal tube to a tracheostomy. No radiographically evident complication Nasogastric tube placement, better visualized on abdomen radiograph, please refer to that report Bilateral pulmonary parenchymal and left pleural disease again demonstrated, probably unchanged
[2018-02-26] MEDS ORDERED: Norco 5mg/325mg tab ORAL PRN (16:30)
--- NOTE | 2018-02-26 17:52 | Infectious Diseases Prog Note ---
Assessment/Plan Assessment/Plan ASSESSMENT AND PLAN: 1. sepsis, leukocytosis, pseudomonas pna, e.coli uti, fungal uti, fungemia risk , lgt, diarrhea, c.diff. negative respiratory failure, s/p trach - chest x-ray and leukocytosis worse - change abx to meropenem and polymyxin to cover MDR pathogens - vancomycin to cover mrsa, diflucan for anti-fungal coverage (urine culture with harry albicans) - d/w Dr. Matos, d/w RN, d/w son at length - monitor labs and chest x-ray, recheck c.diff. 2. Hypertension. Blood pressure treatment per primary, Dr. Matos. 3. Respiratory failure, on vent, weaning per Dr. Matos. 4. Rectal tube and diarrhea. 5. Mistry. 6. Clostridium difficile negative. 7. Parkinson disease. 8. Dysphagia. 9. Aspiration risk. 10. 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 11. History of anemia. 12. Nephrolithiasis. 13. Meningioma. 14. History of breast cancer. 15. History of lumpectomy. 16. Obesity. 17. Obesity hypoventilation syndrome. 18. No known allergies. 19. Social history negative. 20. MAR was noted. 21. Case discussed with RN. 22. Family history noncontributory. 23. Continue treatments per primary consultants. 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 Subjective Constitutional: Reports: fever - lgt yesterday, fatigue, other - s/p trach HEENT: Reports: congestion Respiratory: Reports: shortness of breath Cardiovascular: Reports: chest pain Gastrointestinal/Abdominal: Reports: diarrhea, other - + rectal tube; Denies: nausea, vomiting Genitourinary: Reports: other - + mistry Neurologic: Denies: headache Psychiatric: Denies: depression Skin: Denies: rash Hematologic: Denies: bleeding Musculoskeletal: Denies: pain Allergies: Coded Allergies: No Known Allergies (Unverified , 01/11/14) Objective Vital Signs Last 24 Hour Vital Signs Date Time Temp Pulse Resp B/P (MAP) Pulse Ox O2 Delivery O2 Flow Rate FiO2 02/26/18 16:00 40 02/26/18 15:52 99.4 02/26/18 15:31 Mechanical Ventilator 40 02/26/18 15:31 91 16 40 02/26/18 15:31 Mechanical Ventilator 40 02/26/18 15:01 90 16 90 02/26/18 15:00 99 16 140/73 (95) 97 02/26/18 14:00 99 16 125/80 (95) 97 02/26/18 13:10 110 18 40 02/26/18 13:00 111 16 127/72 (90) 97 02/26/18 12:00 115 02/26/18 12:00 28 02/26/18 12:00 Mechanical Ventilator 02/26/18 12:00 114 16 126/74 (91) 100 02/26/18 11:30 116 16 107/57 (74) 100 02/26/18 11:00 113 16 106/56 (73) 100 02/26/18 10:55 115 20 99 Mechanical Ventilator 40 02/26/18 10:49 113 16 40 02/26/18 10:45 113 20 97 Mechanical Ventilator 40 02/26/18 10:00 114 16 125/68 (87) 100 02/26/18 09:00 106 16 109/65 (80) 100 02/26/18 08:48 108 16 40 02/26/18 08:00 99.4 110 16 115/68 (84) 100 99.4 02/26/18 08:00 52 02/26/18 08:00 Mechanical Ventilator 02/26/18 08:00 28 02/26/18 07:22 107 16 100 Mechanical Ventilator 40 02/26/18 07:14 108 18 100 Mechanical Ventilator 40 02/26/18 07:07 107 16 40 02/26/18 07:00 105 16 100/62 (75) 100 02/26/18 06:00 106 16 101/57 (72) 100 02/26/18 05:30 125 24 50 02/26/18 05:00 121 16 92/56 (68) 90 02/26/18 04:00 28 02/26/18 04:00 118 02/26/18 04:00 Mechanical Ventilator 02/26/18 04:00 99.1 119 16 121/89 (100) 94 99.1 02/26/18 03:31 172/158 02/26/18 03:31 98.7 02/26/18 03:23 130 27 28 02/26/18 03:22 130 23 92 Mechanical Ventilator 02/26/18 03:21 130 23 92 Mechanical Ventilator 02/26/18 03:00 131 16 172/158 (163) 94 02/26/18 02:00 131 16 190/86 (120) 94 02/26/18 01:22 110 20 28 02/26/18 01:00 131 16 160/75 (103) 94 02/26/18 00:00 127 16 175/77 (109) 94 02/26/18 00:00 28 02/26/18 00:00 111 02/26/18 00:00 Mechanical Ventilator 02/25/18 23:34 119 21 100 Mechanical Ventilator 02/25/18 23:33 116 20 97 Mechanical Ventilator 02/25/18 23:30 117 20 28 02/25/18 23:00 99.1 119 16 114/89 (97) 94 99.1 02/25/18 22:00 120 16 129/75 (93) 90 02/25/18 21:30 112 21 28 02/25/18 21:00 117 16 131/94 (106) 92 02/25/18 20:00 104 21 96 Mechanical Ventilator 02/25/18 20:00 113 02/25/18 20:00 Mechanical Ventilator 02/25/18 20:00 98.7 105 20 144/89 (107) 96 98.7 02/25/18 20:00 118 22 97 Mechanical Ventilator 02/25/18 20:00 28 02/25/18 19:30 115 22 28 02/25/18 19:00 105 20 137/76 (96) 96 02/25/18 18:00 92 19 126/55 (78) 96 Height (Feet): 5 Height (Inches): 7.00 Weight (Pounds): 268 General Appearance: other - s/p trach HEENT: normocephalic, atraumatic, anicteric Respiratory/Chest: crackles/rales, rhonchi - bilaterally, other - on a vent, s/ p trach, fi02 - 40 %, no pressors Cardiovascular: normal rate, regular rhythm, no gallop/murmur, no JVD Abdomen: normal bowel sounds, soft, non tender, no organomegaly, non distended Genitourinary: other - + mistry - urine clear Extremities: no cyanosis Skin: no rash Neurologic/Psychiatric: employment specialist II-XII grossly normal, alert, responsive Lymphatic: no neck adenopathy Musculoskeletal: no effusion Objective Chest -x -ray - 02/26 - Findings: Increased consolidation is seen in the right perihilar region and right lung base. There is increased consolidation of the left lung base. There is generalized mild interstitial congestion again demonstrated. There is probably some pleural fluid on the left. The heart is borderline enlarged. The aorta is tortuous. Again demonstrated are endotracheal and nasogastric tube and a mediastinal stent. Impression: Worsening bilateral basilar infiltrates versus edema, over 2 days Microbiology Date/Time Source Procedure Growth Status 02/23/18 19:10 Blood Blood Culture - Preliminary NO GROWTH AFTER 48 HOURS Resulted 02/23/18 18:50 Blood Blood Culture - Preliminary NO GROWTH AFTER 48 HOURS Resulted 02/26/18 07:40 Sputum Gram Stain - Final Resulted 02/26/18 07:40 Sputum Sputum Culture Pending Resulted Laboratory Tests Test 02/26/18 03:55 02/26/18 04:00 Arterial Blood pH 7.461 (7.350-7.450) Arterial Blood Partial Pressure CO2 40.9 mmHg (35.0-45.0) Arterial Blood Partial Pressure O2 63.6 mmHg (75.0-100.0) L Arterial Blood HCO3 28.5 mmol/L (22.0-26.0) H Arterial Blood Oxygen Saturation 92.2 % (92.0-98.0) Arterial Blood Base Excess 4.3 Kerwin Test Positive White Blood Count 18.1 K/UL (4.8-10.8) H Red Blood Count 3.68 M/UL (4.20-5.40) L Hemoglobin 9.6 G/DL (12.0-16.0) L Hematocrit 30.3 % (37.0-47.0) L Mean Corpuscular Volume 82 FL (80-99) Mean Corpuscular Hemoglobin 26.1 PG (27.0-31.0) L Mean Corpuscular Hemoglobin Concent 31.7 G/DL (32.0-36.0) L Red Cell Distribution Width 14.7 % (11.6-14.8) Platelet Count 341 K/UL (150-450) Mean Platelet Volume 6.2 FL (6.5-10.1) L Neutrophils (%) (Auto) % (45.0-75.0) Lymphocytes (%) (Auto) % (20.0-45.0) Monocytes (%) (Auto) % (1.0-10.0) Eosinophils (%) (Auto) % (0.0-3.0) Basophils (%) (Auto) % (0.0-2.0) Differential Total Cells Counted 100 Neutrophils % (Manual) 86 % (45-75) H Lymphocytes % (Manual) 8 % (20-45) L Monocytes % (Manual) 5 % (1-10) Eosinophils % (Manual) 1 % (0-3) Basophils % (Manual) 0 % (0-2) Band Neutrophils 0 % (0-8) Platelet Estimate Adequate Platelet Morphology Normal Hypochromasia 1+ Activated Partial Thromboplast Time 29 SEC (23-33) Sodium Level 136 MMOL/L (136-145) Potassium Level 4.6 MMOL/L (3.5-5.1) Chloride Level 99 MMOL/L (98-107) Carbon Dioxide Level 28 MMOL/L (21-32) Anion Gap 9 mmol/L (5-15) Blood Urea Nitrogen 19 mg/dL (7-18) H Creatinine 1.2 MG/DL (0.55-1.30) Estimat Glomerular Filtration Rate mL/min (>60) Glucose Level 219 MG/DL (74-106) H Calcium Level 10.2 MG/DL (8.5-10.1) H Total Bilirubin 0.4 MG/DL (0.2-1.0) Aspartate Amino Transf (AST/SGOT) 15 U/L (15-37) Alanine Aminotransferase (ALT/SGPT) 13 U/L (12-78) Alkaline Phosphatase 97 U/L (46-116) Pro-B-Type Natriuretic Peptide 907 pg/mL (0-125) H Total Protein 7.5 G/DL (6.4-8.2) Albumin 2.2 G/DL (3.4-5.0) L Globulin 5.3 g/dL Albumin/Globulin Ratio 0.4 (1.0-2.7) L Current Medications Medications (Trade) Dose Ordered Sig/Roro Route PRN Reason Start Time Stop Time Status Last Admin Dose Admin Acetaminophen (Tylenol) 650 mg Q4H PRN NG Fever/Headache/Mild Pain 02/12/18 02:45 03/14/18 02:44 02/26/18 03:31 Acetaminophen/ Hydrocodone Bitart ([place] 5/325) 1 tab Q4H PRN ORAL Moderate Pain (Pain Scale 4-6) 02/26/18 16:30 03/05/18 16:29 Acetylcysteine (Mucomyst) 200 mg Q4HRT HHN 02/21/18 23:00 03/23/18 22:59 02/26/18 10:45 Albuterol/ Ipratropium (Albuterol/ Ipratropium) 3 ml Q4HRT HHN 02/21/18 19:00 02/26/18 18:59 02/26/18 10:45 Bisacodyl (Dulcolax) 10 mg DAILYPRN PRN RECTAL Constipation 02/20/18 20:15 03/16/18 19:14 Carbidopa/Levodopa (Sinemet 25/100) 1.5 tab THREE TIMES A DAY ORAL 02/25/18 18:00 03/14/18 12:59 02/26/18 10:06 Cinacalcet (Sensipar) 30 mg DAILY ORAL 02/13/18 09:00 03/15/18 08:59 02/26/18 10:04 Clonidine HCl (Catapres Tab) 0.1 mg Q4H PRN ORAL For SBP>170 02/21/18 09:30 03/23/18 09:29 02/26/18 03:31 Fluconazole/ Sodium Chloride 100 ml @ 100 mls/hr Q24H IV 02/27/18 12:00 03/06/18 11:59 Insulin Aspart (NovoLOG) 4 units NOVOTIAC SUBQ 02/12/18 11:50 03/14/18 11:49 02/26/18 11:42 Lansoprazole (Prevacid) 30 mg ACBREAKFAST NG 02/12/18 06:30 03/14/18 06:29 02/26/18 06:13 Lorazepam (Ativan 2mg/ml 1ml) 0.5 mg Q3H PRN IV For Anxiety 02/26/18 04:45 03/05/18 04:44 02/26/18 04:48 Meropenem 1 gm/ Sodium Chloride 55 ml @ 110 mls/hr Q12H IVPB 02/26/18 10:00 03/03/18 09:59 02/26/18 10:16 Morphine Sulfate (Morphine Sulfate) 1 mg Q4HR PRN IVP Mild Pain (Pain Scale 1-3) 02/26/18 15:45 03/03/18 15:44 Morphine Sulfate (Morphine Sulfate) 2 mg Q4HR PRN IVP Moderate Pain (Pain Scale 4-6) 02/26/18 15:45 03/03/18 15:44 Morphine Sulfate (Morphine Sulfate) 4 mg Q4H PRN IVP Severe Pain (Pain Scale 7-10) 02/26/18 15:45 03/03/18 15:44 02/26/18 15:52 Non-Formulary Medication (Non-Formulary Med) 1 ea DAILY TOPIC 02/26/18 09:00 03/28/18 08:59 UNV Ondansetron HCl (Zofran) 4 mg Q4H PRN IVP Nausea & Vomiting 02/13/18 10:30 03/15/18 10:29 02/26/18 10:04 Polyethylene Glycol (Miralax) 17 gm DAILYPRN PRN ORAL Constipation 02/20/18 20:00 03/22/18 19:59 Polymyxin B Sulfate 157561 units/Dextrose 550 ml @ 550 mls/hr EVERY 12 HOURS IV 02/26/18 09:00 03/05/18 08:59 02/26/18 10:16 Potassium Chloride (K-Dur) 20 meq TWICE A DAY NGT 02/16/18 10:00 03/18/18 09:59 02/26/18 10:07 Vancomycin HCl (Vanco rx to dose) 1 ea DAILY PRN MISC Per rx protocol 02/26/18 04:45 03/28/18 04:44 Vancomycin/Sodium Chloride 250 ml @ 166.667 mls/hr Q12H IVPB 02/26/18 06:00 03/03/18 05:59 02/26/18 06:11 Celia Capone MD Feb 26, 2018 17:52
--- NOTE | 2018-02-26 19:34 | General Progress Note ---
Assessment/Plan Assessment/Plan GI CONSULT Dictated Will arrange for PEG placement Mon or Tu. Can feed with NGT in the interim. Thank you Nell Gabriel MD Subjective Allergies: Coded Allergies: No Known Allergies (Unverified , 01/11/14) Objective Last 24 Hour Vital Signs Date Time Temp Pulse Resp B/P (MAP) Pulse Ox O2 Delivery O2 Flow Rate FiO2 02/26/18 19:14 101 16 99 Mechanical Ventilator 40 02/26/18 19:00 101 16 130/85 (100) 100 02/26/18 18:59 103 16 98 Mechanical Ventilator 40 02/26/18 18:57 103 16 40 02/26/18 18:00 100 16 145/81 (102) 100 02/26/18 17:34 101 17 40 02/26/18 17:00 103 16 134/70 (91) 97 02/26/18 16:22 99.4 02/26/18 16:00 92 02/26/18 16:00 91 16 144/99 (114) 97 02/26/18 16:00 40 02/26/18 16:00 Mechanical Ventilator 02/26/18 15:52 99.4 02/26/18 15:31 Mechanical Ventilator 40 02/26/18 15:31 91 16 40 02/26/18 15:31 Mechanical Ventilator 40 02/26/18 15:01 90 16 90 02/26/18 15:00 99 16 140/73 (95) 97 02/26/18 14:00 99 16 125/80 (95) 97 02/26/18 13:10 110 18 40 02/26/18 13:00 111 16 127/72 (90) 97 02/26/18 12:00 115 02/26/18 12:00 28 02/26/18 12:00 Mechanical Ventilator 02/26/18 12:00 114 16 126/74 (91) 100 02/26/18 11:30 116 16 107/57 (74) 100 02/26/18 11:00 113 16 106/56 (73) 100 02/26/18 10:55 115 20 99 Mechanical Ventilator 40 02/26/18 10:49 113 16 40 02/26/18 10:45 113 20 97 Mechanical Ventilator 40 02/26/18 10:00 114 16 125/68 (87) 100 02/26/18 09:00 106 16 109/65 (80) 100 02/26/18 08:48 108 16 40 02/26/18 08:00 99.4 110 16 115/68 (84) 100 99.4 02/26/18 08:00 52 02/26/18 08:00 Mechanical Ventilator 02/26/18 08:00 28 02/26/18 07:22 107 16 100 Mechanical Ventilator 40 02/26/18 07:14 108 18 100 Mechanical Ventilator 40 02/26/18 07:07 107 16 40 02/26/18 07:00 105 16 100/62 (75) 100 02/26/18 06:00 106 16 101/57 (72) 100 02/26/18 05:30 125 24 50 02/26/18 05:00 121 16 92/56 (68) 90 02/26/18 04:00 28 02/26/18 04:00 118 02/26/18 04:00 Mechanical Ventilator 02/26/18 04:00 99.1 119 16 121/89 (100) 94 99.1 02/26/18 03:31 172/158 02/26/18 03:31 98.7 02/26/18 03:23 130 27 28 02/26/18 03:22 130 23 92 Mechanical Ventilator 02/26/18 03:21 130 23 92 Mechanical Ventilator 02/26/18 03:00 131 16 172/158 (163) 94 02/26/18 02:00 131 16 190/86 (120) 94 02/26/18 01:22 110 20 28 02/26/18 01:00 131 16 160/75 (103) 94 02/26/18 00:00 127 16 175/77 (109) 94 02/26/18 00:00 28 02/26/18 00:00 111 02/26/18 00:00 Mechanical Ventilator 02/25/18 23:34 119 21 100 Mechanical Ventilator 02/25/18 23:33 116 20 97 Mechanical Ventilator 02/25/18 23:30 117 20 28 02/25/18 23:00 99.1 119 16 114/89 (97) 94 99.1 02/25/18 22:00 120 16 129/75 (93) 90 02/25/18 21:30 112 21 28 02/25/18 21:00 117 16 131/94 (106) 92 02/25/18 20:00 104 21 96 Mechanical Ventilator 02/25/18 20:00 113 02/25/18 20:00 Mechanical Ventilator 02/25/18 20:00 98.7 105 20 144/89 (107) 96 98.7 02/25/18 20:00 118 22 97 Mechanical Ventilator 02/25/18 20:00 28 Intake and Output 02/25/18 02/26/18 19:00 07:00 Intake Total 710.0 ml 660 ml Output Total 1200 ml 1050 ml Balance -490.0 ml -390 ml IV Total 110.0 ml Tube Feeding 600 ml 600 ml Other 60 ml Output Urine Total 1120 ml 950 ml Stool Total 80 ml 100 ml Laboratory Tests 02/26/18 03:55: Arterial Blood pH 7.461H, Arterial Blood Partial Pressure CO2 40.9, Arterial Blood Partial Pressure O2 63.6L, Arterial Blood HCO3 28.5H, Arterial Blood Oxygen Saturation 92.2, Arterial Blood Base Excess 4.3, Kerwin Test Positive 02/26/18 04:00: White Blood Count 18.1H, Red Blood Count 3.68L, Hemoglobin 9.6L, Hematocrit 30.3L, Mean Corpuscular Volume 82, Mean Corpuscular Hemoglobin 26.1L, Mean Corpuscular Hemoglobin Concent 31.7L, Red Cell Distribution Width 14.7, Platelet Count 341, Mean Platelet Volume 6.2L, Neutrophils (%) (Auto) , Lymphocytes (%) (Auto) , Monocytes (%) (Auto) , Eosinophils (%) (Auto) , Basophils (%) (Auto) , Differential Total Cells Counted 100, Neutrophils % ( Manual) 86H, Lymphocytes % (Manual) 8L, Monocytes % (Manual) 5, Eosinophils % ( Manual) 1, Basophils % (Manual) 0, Band Neutrophils 0, Platelet Estimate Adequate, Platelet Morphology Normal, Hypochromasia 1+, Activated Partial Thromboplast Time 29, Sodium Level 136, Potassium Level 4.6, Chloride Level 99, Carbon Dioxide Level 28, Anion Gap 9, Blood Urea Nitrogen 19H, Creatinine 1.2, Estimat Glomerular Filtration Rate , Glucose Level 219H, Calcium Level 10.2H, Total Bilirubin 0.4, Aspartate Amino Transf (AST/SGOT) 15, Alanine Aminotransferase (ALT/SGPT) 13, Alkaline Phosphatase 97, Pro-B-Type Natriuretic Peptide 907H, Total Protein 7.5, Albumin 2.2L, Globulin 5.3, Albumin/Globulin Ratio 0.4L Height (Feet): 5 Height (Inches): 7.00 Weight (Pounds): 268 Nell Gabriel MD Feb 26, 2018 19:34
--- NOTE | 2018-02-26 20:05 | Diagnostic Imaging Report ---
EXAM: XR Abdomen, 2 Views CLINICAL HISTORY: TUBE PLCMT TECHNIQUE: Frontal view of the abdomen/pelvis with upright view of the abdomen. COMPARISON: No relevant prior studies available. FINDINGS: Intraperitoneal space: No free air. Gastrointestinal tract: Unremarkable. No dilation. Bones/joints: Unremarkable. Tubes, lines and devices: NG tube in the stomach. IMPRESSION: NG tube in the stomach.
--- NOTE | 2018-02-26 23:00 | Operative Note - Dictated ---
DATE OF OPERATION: 02/26/2018 PREOPERATIVE DIAGNOSIS: Respiratory insufficiency requiring prolonged ventilation/ventilatory support. POSTOPERATIVE DIAGNOSIS: Respiratory insufficiency requiring prolonged ventilation/ventilatory support. OPERATIONS PERFORMED: 1. Bronchoscopy. 2. Tracheostomy. 3. Removal of malpositioned tracheal stent. ATTENDING SURGEON: Chuck Villeda M.D. JOB PLACEMENT COUNSELOR: None. ANESTHESIOLOGIST: Felicita Law C.R.N.A. ANESTHESIA: General FABRIC NORMALIZER. ESTIMATED BLOOD LOSS: Minimal. IV FLUIDS: Please see anesthesia records. COMPLICATIONS: None. WOUND CLASSIFICATION: Class III. COUNTS: Sponge and needle count correct x2. SPECIMENS: Tracheal stent sent to pathology for review. ANTIBIOTICS: The patient on scheduled IV antibiotics prior to entering the operating room. INDICATIONS FOR PROCEDURE: This is an 82-year-old female with multiple medical comorbidities who presented with respiratory insufficiency requiring intubation and is being currently managed in the intensive care unit for some time with inability to wean off of ventilatory support. As it becomes more evident that the patient will require prolonged ventilatory support, considerations for tracheostomy were had. Surgery was called for evaluation, at which time the case was evaluated and tracheostomy was deemed indicated and recommended. Risks, benefits, and alternatives were discussed with the patient's family and the patient herself, and consent was obtained for procedure, which was performed today on 02/26/2018. Given the patient's history of a prior tracheal disease including potential tracheomalacia or as per family floppy esophagus with history of multiple prior intubations and hospitalizations and lastly a prior tracheal stent placement, there was a necessity to perform a bronchoscopy before any operative intervention. OPERATIVE NOTE: The patient was taken to the operating room and placed in the hospital bed in the supine position with shoulder roll placed. All bony prominences were well padded. SCDs were placed. The patient had ET tube, OT tube, and Pagan prior to entering the operating room. The patient was on scheduled IV antibiotics. Preoperative time-out was taken identifying the patient, procedure, operative staff, and surgical staff. Consent was identified and appropriate. The patient was made comfortable by the anesthesiologist and induced. Once this was complete after adequate ventilation was given, a bronchoscopy was performed. The bronchoscope was passed through the ET tube down into the trachea. Upon identifying the end of the ET tube and entering into the trachea, the prior tracheal stent was visualized and noted to be as almost a foreign body as the stent was free floating and was mobilized anteriorly by the ET tube and causing an area of obstruction. The bronchoscope could be easily passed between the space between the tracheal stent and the trachea, entering into the jennifer where a significant amount of sputum and bronchial contents were identified. At this time, the bronchoscope was withdrawn, and a decision was made to proceed with the procedure with potential of having to remove the stent. The neck was then prepped and draped in standard surgical fashion. Local anesthetic was infiltrated to the skin incision site. A transverse skin incision was made approximately 2 to 3 cm above the sternal notch. Incision was carried down through the subcutaneous tissue, platysma, and to the strap muscles. The median raphe was identified and divided in a linear fashion to split the strap muscles. A retractor was placed, and the trachea was identified. Hemostasis of small veins was obtained using electrocautery. Once this was completed and trachea was completely visualized with appropriate retraction, a tracheal hook was placed and the first, second, and third tracheal rings were appropriately visualized. The anesthesiologist was informed and prepared. At this time, a Reanna flap was made through the second tracheal ring, and the ET tube was identified. The balloon of the ET tube was desufflated and the ET tube was slowly withdrawn by the anesthesiologist under direct visualization. This was completed, the ET tube above the flap was held in place, and the stent was identified. Stent was noted to be freely mobile without any attachments or adhesions or granulation tissue. At this time, the stent was noted to be compressed and was open. Initially, the decision was made to place the tracheostomy tube through the stent, and this was performed, and the patient was placed onto ventilator support, and we identified that once the balloon was insufflated, there was still a significant amount of leak from between the stent and the trachea given that the stent was smaller than the trachea and would not expand to the full size of the trachea. It was freely mobile, almost as a foreign body. Given the above, at this time decision was made to remove the stent. The tracheostomy was removed as the patient was carefully evaluated by the anesthesiologist and the stent was identified, grasped, and removed through the Reanna flap without any complications. The stent was sent to pathology as a specimen. The tracheostomy tube was then placed back in without complication, balloon insufflated and the patient ventilated. The patient had good tidal volumes leak and ventilator support was satisfactory. The tracheal hook was then removed as well as the retractors. The wound was irrigated. Local anesthetic was infiltrated, and the skin incision was reapproximated using 4-0 Monocryl subcuticular sutures. The trachea was secured using 3-0 Monocryl to the skin. Following this, the tracheal neck tie was placed as well as dressings. The patient was deep suctioned, and a significant amount of seropurulent fluid was evacuated, and some specimen was sent for microbiology. Once this was completed, a repeat bronchoscopy was performed through the tracheostomy where good tracheal positioning and the jennifer and right and left airway were identified and suctioning of this fluid was evacuated as necessary. Of note, initially when the ET tube was withdrawn through the Reanna flap, I could identify what appeared to be tracheomalacia with granulation tissue around the posterior aspect of the trachea, almost near circumferential with significant obstruction at the level above the third tracheal ring. Below the third tracheal ring, no significant disease process was identified, but between the cords and the third tracheal ring, there was a fair amount of tracheomalacia that would be causing respiratory insufficiency. Once dressings were applied, the patient was then transferred back to the intensive care unit in stable condition. An NG tube was placed and chest x-ray and KUB were obtained for confirmation of satisfactory postoperative completion. The patient tolerated the procedure well. Discussion was had with the family regarding the findings and operative course. Chuck Villeda M.D. DR: NAZANIN JOB#: [id number] CC: Gómez Matos M.D.; Fax#: [phone] RADHA BERNARD M.D. ; FAX#: [phone] WILLI
[2018-02-27] VITALS (24 sets, daily range): BP systolic 100–147; BP diastolic 52–77
[2018-02-27] MEDS: Morphine Sulfate 2mg/ml Inj(IV/IM USE ONLY) IVP PRN ×4 (01:39→22:57)
[2018-02-27] MEDS: Acetylcysteine 20% Soln 4ml HHN SCH ×6 (02:59→23:13)
[2018-02-27] MEDS: Albuterol/Ipratropium 3ml neb HHN SCH ×6 (02:59→23:13)
--- NOTE | 2018-02-27 04:15 | Consultation ---
DATE OF CONSULTATION: 02/26/2018 NOTE: POOR AUDIO GASTROENTEROLOGY CONSULTATION CONSULTING PHYSICIAN: Nell Gabriel M.D. CHIEF COMPLAINT: I was asked to see this patient by Dr. Gómez Matos for evaluation of gastrostomy tube placement. HISTORY OF PRESENT ILLNESS: The patient is an unfortunate 82-year-old patient from alf, who came to the hospital with respiratory distress. Despite appropriate care, condition has not improved. Therefore, she has undergone a tracheostomy tube placement today. This consultation is generated for placing a gastrostomy tube. The patient herself is unable to provide any history and most of the information is available only from the chart. PAST MEDICAL HISTORY: History of respiratory failure, Parkinson disease, esophageal dysmotility, torturous esophagus, tracheomalacia, status post tracheal stent placement, nephrolithiasis, anemia, meningioma, paraspinous mass, thyroid mass, porcelain gallbladder, adnexal cyst, history of breast cancer, lumpectomy, and bedbound state. ALLERGIES: None. MEDICATIONS: See the chart list for details. FAMILY HISTORY: Unavailable. SOCIAL HISTORY: The patient is from a alf. REVIEW OF SYSTEMS: Unobtainable. PHYSICAL EXAMINATION: GENERAL: Debilitated white woman, seen in ICU. HEENT: Normocephalic and atraumatic. The endotracheal tube is in place (the patient seen prior to tracheostomy placement). NECK: Supple. CHEST: Revealed coarse breath sounds. CARDIOVASCULAR: Revealed a regular rate. ABDOMEN: Soft. Good bowel sounds. EXTREMITIES: Revealed trace edema. LABORATORY AND DIAGNOSTIC DATA: Laboratory data was noted. ASSESSMENT: The patient has undergone respiratory failure and tracheostomy placement. She will then require a gastrostomy tube for long-term enteral access and nutrition. The indications, risks, alternatives, and possible complications of the procedure will be explained to the patient's family and informed consent will be obtained. The gastrostomy tube can be placed in the next available time. In the meantime, the patient can be fed via nasogastric tube. RECOMMENDATIONS: Per above discussion and per orders written in the chart. Thank you for asking me to participate in the care of this patient. Nell Gabriel M.D. DR: BEVERLY JOB#: [id number] CC: WILLI
[2018-02-27 05:16] LABS: BASOPHILS % (AUTO) 1.1 % (0.0-2.0); EOSINOPHILS % (AUTO) 2.5 % (0.0-3.0); HEMATOCRIT 26.8 % (37.0-47.0); HEMOGLOBIN 8.7 G/DL (12.0-16.0); LYMPHOCYTES % (AUTO) 14.2 % (20.0-45.0); MEAN CORPUSCULAR VOLUME 82 FL (80-99); MONOCYTES % (AUTO) 7.3 % (1.0-10.0); NEUTROPHILS % (AUTO) 74.9 % (45.0-75.0); PLATELET COUNT 309 K/UL (150-450); RED BLOOD COUNT 3.25 M/UL (4.20-5.40); RED CELL DISTRIBUTION WIDTH 14.7 % (11.6-14.8); WHITE BLOOD COUNT 11.7 K/UL (4.8-10.8)
[2018-02-27 05:23] LABS: ALANINE AMINOTRANSFERASE 8 U/L (12-78); ALBUMIN 1.9 G/DL (3.4-5.0); ALBUMIN/GLOBULIN RATIO 0.4 (1.0-2.7); ALKALINE PHOSPHATASE 79 U/L (46-116); ANION GAP 7 mmol/L (5-15); ASPARTATE AMINO TRANSFERASE 14 U/L (15-37); BILIRUBIN,TOTAL 0.4 MG/DL (0.2-1.0); BLOOD UREA NITROGEN 16 mg/dL (7-18); CALCIUM 9.4 MG/DL (8.5-10.1); CARBON DIOXIDE 28 MMOL/L (21-32); CHLORIDE 100 MMOL/L (98-107); CREATININE 1.1 MG/DL (0.55-1.30); POTASSIUM 4.4 MMOL/L (3.5-5.1); SODIUM 135 MMOL/L (136-145)
[2018-02-27] MEDS: Vancomycin 750mg/NS 250ml IVPB SCH (05:30)
[2018-02-27] MEDS: NovoLOG Insulin Flexpen SUBQ SCH ×3 (05:36→17:15)
[2018-02-27] MEDS: Polymyxin B Sulfate 500,000 UNITS in D5W 500ml 550 ML IV SCH ×2 (08:36→20:52)
[2018-02-27] MEDS: Sensipar 30mg Tab ORAL SCH (08:36)
[2018-02-27] MEDS: Levodopa/Carbidopa 25/100 tab ORAL SCH ×3 (08:36→17:19)
--- NOTE | 2018-02-27 10:03 | General Progress Note ---
Assessment/Plan Problem List: (1) Dysphagia ICD Codes: R13.10 - Dysphagia, unspecified SNOMED: 66505005, 099399536 (2) Aspiration pneumonia ICD Codes: J69.0 - Pneumonitis due to inhalation of food and vomit SNOMED: 952016932, 452337271 Qualifiers: Qualified Codes: J69.0 - Pneumonitis due to inhalation of food and vomit (3) Parkinson disease ICD Codes: G20 - Parkinson's disease SNOMED: 86935944 (4) Respiratory failure requiring intubation ICD Codes: J96.90 - Respiratory failure, unspecified, unspecified whether with hypoxia or hypercapnia; Z68.43 - Body mass index (BMI) 50-59.9 , adult SNOMED: 408210726, 891333260 (5) Morbid obesity with BMI of 50.0-59.9, adult ICD Codes: E66.01 - Morbid (severe) obesity due to excess calories; Z68.43 - Body mass index (BMI) 50-59.9 , adult SNOMED: 440839279, 488054440 Assessment/Plan NGTF pending PEG placement on Thursday Subjective ROS Limited/Unobtainable: No Allergies: Coded Allergies: No Known Allergies (Unverified , 01/11/14) Objective Last 24 Hour Vital Signs Date Time Temp Pulse Resp B/P (MAP) Pulse Ox O2 Delivery O2 Flow Rate FiO2 02/27/18 09:00 96 16 115/52 (73) 98 02/27/18 08:55 93 18 40 02/27/18 08:00 94 02/27/18 08:00 Mechanical Ventilator 02/27/18 08:00 98.3 93 16 100/53 (69) 98 98.3 02/27/18 08:00 40 02/27/18 07:41 94 16 100 Mechanical Ventilator 40 02/27/18 07:27 93 16 97 Mechanical Ventilator 40 02/27/18 07:27 93 16 40 02/27/18 07:00 94 16 117/68 (84) 98 02/27/18 06:00 94 16 116/65 (82) 96 02/27/18 05:02 98 16 40 02/27/18 05:00 97 16 110/58 (75) 95 02/27/18 04:00 40 02/27/18 04:00 Mechanical Ventilator 02/27/18 04:00 90 02/27/18 04:00 99.1 98 16 113/60 (77) 98 99.1 02/27/18 03:14 95 16 100 Mechanical Ventilator 40 02/27/18 03:00 99.1 97 16 107/54 (71) 98 99.1 02/27/18 02:59 97 16 40 02/27/18 02:59 97 16 100 Mechanical Ventilator 40 02/27/18 02:00 97 16 117/53 (74) 99 02/27/18 01:00 97 16 114/67 (83) 99 02/27/18 00:57 94 16 Mechanical Ventilator 40 02/27/18 00:57 94 16 40 02/27/18 00:00 96 16 121/61 (81) 97 02/27/18 00:00 40 02/27/18 00:00 96 02/27/18 00:00 Mechanical Ventilator 02/26/18 23:21 96 16 99 Mechanical Ventilator 40 02/26/18 23:07 93 16 97 Mechanical Ventilator 40 02/26/18 23:06 93 16 40 02/26/18 23:00 98.9 96 16 121/66 (84) 97 98.9 02/26/18 22:00 94 16 119/63 (81) 97 02/26/18 21:30 96 16 40 02/26/18 21:00 96 16 124/66 (85) 100 02/26/18 20:00 98.7 95 16 131/64 (86) 100 98.7 02/26/18 20:00 Mechanical Ventilator 02/26/18 20:00 96 02/26/18 20:00 40 02/26/18 19:14 101 16 99 Mechanical Ventilator 40 02/26/18 19:00 101 16 130/85 (100) 100 02/26/18 18:59 103 16 98 Mechanical Ventilator 40 02/26/18 18:57 103 16 40 02/26/18 18:00 100 16 145/81 (102) 100 02/26/18 17:34 101 17 40 02/26/18 17:00 103 16 134/70 (91) 97 02/26/18 16:22 99.4 02/26/18 16:00 92 02/26/18 16:00 91 16 144/99 (114) 97 02/26/18 16:00 40 02/26/18 16:00 Mechanical Ventilator 8/3/18 15:52 99.4 02/26/18 15:31 Mechanical Ventilator 40 02/26/18 15:31 91 16 40 02/26/18 15:31 Mechanical Ventilator 40 02/26/18 15:01 90 16 90 02/26/18 15:00 99 16 140/73 (95) 97 02/26/18 14:00 99 16 125/80 (95) 97 02/26/18 13:10 110 18 40 02/26/18 13:00 111 16 127/72 (90) 97 02/26/18 12:00 115 02/26/18 12:00 28 02/26/18 12:00 Mechanical Ventilator 02/26/18 12:00 114 16 126/74 (91) 100 02/26/18 11:30 116 16 107/57 (74) 100 02/26/18 11:00 113 16 106/56 (73) 100 02/26/18 10:55 115 20 99 Mechanical Ventilator 40 02/26/18 10:49 113 16 40 02/26/18 10:45 113 20 97 Mechanical Ventilator 40 Intake and Output 02/26/18 02/27/18 19:00 07:00 Intake Total 605 ml 586.667 ml Output Total 720 ml 890 ml Balance -115 ml -303.333 ml IV Total 605 ml 166.667 ml Tube Feeding 0 ml 420 ml Output Urine Total 620 ml 790 ml Stool Total 100 ml 100 ml Laboratory Tests 02/27/18 04:33: White Blood Count 11.7H, Red Blood Count 3.25L, Hemoglobin 8.7L, Hematocrit 26.8L, Mean Corpuscular Volume 82, Mean Corpuscular Hemoglobin 26.9L, Mean Corpuscular Hemoglobin Concent 32.7, Red Cell Distribution Width 14.7, Platelet Count 309, Mean Platelet Volume 6.3L, Neutrophils (%) (Auto) 74.9, Lymphocytes ( %) (Auto) 14.2L, Monocytes (%) (Auto) 7.3, Eosinophils (%) (Auto) 2.5, Basophils (%) (Auto) 1.1, Sodium Level 135L, Potassium Level 4.4, Chloride Level 100, Carbon Dioxide Level 28, Anion Gap 7, Blood Urea Nitrogen 16, Creatinine 1.1, Estimat Glomerular Filtration Rate , Glucose Level 115#H, Calcium Level 9.4, Total Bilirubin 0.4, Aspartate Amino Transf (AST/SGOT) 14L, Alanine Aminotransferase (ALT/SGPT) 8L, Alkaline Phosphatase 79, Total Protein 6.9, Albumin 1.9L, Globulin 5.0, Albumin/Globulin Ratio 0.4L Height (Feet): 5 Height (Inches): 7.00 Weight (Pounds): 268 General Appearance: lethargic EENT: normal ENT inspection Neck: supple Cardiovascular: normal rate Respiratory/Chest: decreased breath sounds Abdomen: normal bowel sounds, non tender, soft Extremities: non-tender Dave Burgess MD Feb 27, 2018 10:03
--- NOTE | 2018-02-27 10:26 | 48 Hour Post Anesthesia Eval ---
Post Anesthesia Evaluation Procedure: tracheostomy Date of Evaluation: Feb 27, 2018 Time of Evaluation: 10:25 Blood Pressure Systolic: 122 0: 74 Pulse Rate: 68 Respiratory Rate: 22 Temperature (Fahrenheit): 97.6 O2 Sat by Pulse Oximetry: 98 Airway: other - tracheostomy in place Nausea: No Vomiting: No Pain Intensity: 2 Hydration Status: adequate Cardiopulmonary Status: stable Mental Status/LOC: patient returned to baseline Follow-up Care/Observations: n/a Post-Anesthesia Complications: none Follow-up care needed: N/A Raphael Burgess MD Feb 27, 2018 10:26
[2018-02-27] MEDS: Meropenem 1 GM in NS 55 ML IVPB SCH ×2 (10:30→21:38)
[2018-02-27] MEDS ORDERED: NS 275ml ONE ×2 (10:53→10:54)
[2018-02-27] MEDS ORDERED: Tubing IV Secondary IV ONE (10:53)
--- NOTE | 2018-02-27 12:31 | General Progress Note ---
Progress Note Progress Note Surgery: no acute events. leukocytosis improved. labs reviewed. vent settings minimal AC 16, Peep 5, FiO2 40%. awake, responsive, comfortable. trach clean and functional. dressings changed. wound c/d/i. CXR reviewed - prior trach stent no longer present. trach stable. lungs stable. KUB reviewed - NG tube in stomach. In reviewing the plain films there is still another stent noted. not seen on bronch and looks to be below jennifer so likely esophageal stent. will be seen on EGD/PEG on thursday. -wean vent as tolerated -PEG thursday dressings prn thank you Chuck Villeda Feb 27, 2018 12:31
[2018-02-27] MEDS: Vancomycin 1gm/D5W 275ml IVPB SCH ×2 (20:05)
--- NOTE | 2018-02-27 21:53 | Pulmonolgy Critical Care Note ---
Critical Care - Asmt/Plan Assessment/Plan: 1. Acute respiratory failure. sp trach 02/26 2. Extensive pneumonia, left lung. 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 Parkinson's disease. 6. Esophageal dysmotility. 7. Morbid obesity with obesity hypoventilation syndrome. 8. Hypertension. Currently normotensive. 9. Nephrolithiasis and renal mass. 10. History of breast cancer. 11. UTI 12. diarrhea PLAN fu cultures, labs in am, replace lytes weaning protocol cxr in am pressors for MAP less than 65 mmhg nebs wound care Nutrition continue ICU 35 min of CCT spent with pt, reviewing chart discussing plan with nursing. Critical Care - Objective Last 24 Hour Vital Signs Date Time Temp Pulse Resp B/P (MAP) Pulse Ox O2 Delivery O2 Flow Rate FiO2 02/27/18 21:21 91 18 30 02/27/18 19:18 97 16 100 Mechanical Ventilator 30 02/27/18 19:11 96 16 98 Mechanical Ventilator 30 02/27/18 19:08 97 19 30 02/27/18 19:00 94 16 147/68 (94) 97 02/27/18 18:00 93 16 109/62 (78) 97 02/27/18 17:29 98 21 30 02/27/18 17:00 98.4 96 19 119/72 (88) 100 98.4 02/27/18 16:00 93 02/27/18 16:00 94 17 138/76 (96) 97 02/27/18 16:00 Mechanical Ventilator 02/27/18 15:31 87 16 100 Mechanical Ventilator 30 02/27/18 15:30 30 02/27/18 15:28 87 16 30 02/27/18 15:23 88 16 100 Mechanical Ventilator 30 02/27/18 15:00 95 16 129/76 (93) 96 02/27/18 14:00 92 16 119/77 (91) 100 02/27/18 13:16 90 16 35 02/27/18 13:15 35 02/27/18 13:00 98.1 91 17 124/73 (90) 100 98.1 02/27/18 12:00 40 02/27/18 12:00 Mechanical Ventilator 02/27/18 12:00 95 02/27/18 12:00 92 16 128/68 (88) 96 8/4/18 11:29 95 16 98 Mechanical Ventilator 40 18 11:14 95 18 40 18 11:14 95 18 96 Mechanical Ventilator 40 02/27/18 11:00 94 16 122/70 (87) 97 8 10:31 97.6 02/27/18 10:26 207.7 68 22 98 02/27/18 10:00 101 18 128/67 (87) 96 02/27/18 09:00 96 16 115/52 (73) 98 02/27/18 08:55 93 18 40 02/27/18 08:00 94 02/27/18 08:00 Mechanical Ventilator 02/27/18 08:00 98.3 93 16 100/53 (69) 98 98.3 02/27/18 08:00 40 02/27/18 07:41 94 16 100 Mechanical Ventilator 40 02/27/18 07:27 93 16 97 Mechanical Ventilator 40 02/27/18 07:27 93 16 40 02/27/18 07:00 94 16 117/68 (84) 98 02/27/18 06:00 94 16 116/65 (82) 96 02/27/18 05:02 98 16 40 02/27/18 05:00 97 16 110/58 (75) 95 02/27/18 04:00 40 02/27/18 04:00 Mechanical Ventilator 02/27/18 04:00 90 02/27/18 04:00 99.1 98 16 113/60 (77) 98 99.1 02/27/18 03:14 95 16 100 Mechanical Ventilator 40 02/27/18 03:00 99.1 97 16 107/54 (71) 98 99.1 02/27/18 02:59 97 16 40 02/27/18 02:59 97 16 100 Mechanical Ventilator 40 02/27/18 02:00 97 16 117/53 (74) 99 02/27/18 01:00 97 16 114/67 (83) 99 02/27/18 00:57 94 16 Mechanical Ventilator 40 02/27/18 00:57 94 16 40 02/27/18 00:00 96 16 121/61 (81) 97 02/27/18 00:00 40 02/27/18 00:00 96 02/27/18 00:00 Mechanical Ventilator 02/26/18 23:21 96 16 99 Mechanical Ventilator 40 02/26/18 23:07 93 16 97 Mechanical Ventilator 40 02/26/18 23:06 93 16 40 02/26/18 23:00 98.9 96 16 121/66 (84) 97 98.9 02/26/18 22:00 94 16 119/63 (81) 97 Status: somnolent Condition: critical Lungs: rhonchi Heart: HR/BP stable Abdomen: soft, non-tender Extremities: edema Decubiti: location Micro: Microbiology Date/Time Source Procedure Growth Status 02/26/18 05:45 Blood Blood Culture - Preliminary NO GROWTH AFTER 24 HOURS Resulted 02/26/18 05:30 Blood Blood Culture - Preliminary NO GROWTH AFTER 24 HOURS Resulted 02/26/18 14:17 Throat Gram Stain - Final Resulted 02/26/18 14:17 Throat Aerobic Culture - Preliminary NO GROWTH Resulted 02/26/18 07:40 Sputum Gram Stain - Final Resulted 02/26/18 07:40 Sputum Culture - Preliminary Gram Negative Gregg Resulted 02/26/18 10:00 Indwelling Cath Urine Culture - Preliminary Yeast Species Resulted Accucheck: 124 Blood Sugars: BS controlled Critical Care - Subjective ROS Limited/Unobtainable: Yes Condition: critical EKG Rhythm: Sinus Rhythm FI02: 30 Vent Support Breath Rate: 16 Vent Support Mode: AC Vent Tidal Volume: 500 Sputum Amount: Moderate PEEP: 5.0 PIP: 26 Tube Feeding Amount: 50 I&O: Intake and Output 02/26/18 02/27/18 19:00 07:00 Intake Total 605 ml 586.667 ml Output Total 720 ml 890 ml Balance -115 ml -303.333 ml IV Total 605 ml 166.667 ml Tube Feeding 0 ml 420 ml Output Urine Total 620 ml 790 ml Stool Total 100 ml 100 ml Subjective: sp trach and removal of esophageal stent secrewtions noted no cp nv or bleeding positive uop increased rhonchi ET-Tube: 7.5 ET Position: 23 ChazyRosa tenorio Feb 27, 2018 21:53
[2018-02-28] VITALS (24 sets, daily range): BP systolic 93–140; BP diastolic 53–95
[2018-02-28] MEDS: Albuterol/Ipratropium 3ml neb HHN SCH ×6 (03:25→23:12)
[2018-02-28] MEDS: Acetylcysteine 20% Soln 4ml HHN SCH ×6 (03:25→23:12)
[2018-02-28] MEDS: Acetaminophen 650mg/20.3ml NG PRN ×4 (03:38→21:15)
[2018-02-28] MEDS: NovoLOG Insulin Flexpen SUBQ SCH ×3 (06:19→16:53)
--- NOTE | 2018-02-28 08:26 | Diagnostic Imaging Report ---
INDICATION: Infection COMPARISON: Chest x-ray dated 02/26/18 FINDINGS: Single frontal view demonstrates prominent heart size. Nasogastric tube below diaphragm. Tracheostomy. Aortic stent. Mild bilateral lower lobe opacities, right greater than left. No pleural effusions. The visualized osseous structures are within normal limits. IMPRESSION: No significant change. Tubes and lines as outlined above. Mild bilateral lower lobe opacity, right greater than left.
[2018-02-28] MEDS: Polymyxin B Sulfate 500,000 UNITS in D5W 500ml 550 ML IV SCH (08:38)
[2018-02-28] MEDS: Vancomycin 1gm/D5W 275ml IVPB SCH ×2 (08:38)
[2018-02-28] MEDS: Levodopa/Carbidopa 25/100 tab ORAL SCH ×3 (08:39→17:45)
[2018-02-28] MEDS: Sensipar 30mg Tab ORAL SCH (08:39)
[2018-02-28] MEDS ORDERED: Midazolam 2mg/2ml Inj ONE (10:13)
[2018-02-28] MEDS: Meropenem 1 GM in NS 55 ML IVPB SCH ×2 (10:14→17:45)
--- NOTE | 2018-02-28 10:51 | General Progress Note ---
Assessment/Plan Problem List: (1) Dysphagia ICD Codes: R13.10 - Dysphagia, unspecified SNOMED: 05671142, 617093052 (2) Aspiration pneumonia ICD Codes: J69.0 - Pneumonitis due to inhalation of food and vomit SNOMED: 910537641, [id number] Qualifiers: Qualified Codes: J69.0 - Pneumonitis due to inhalation of food and vomit (3) Parkinson disease ICD Codes: G20 - Parkinson's disease SNOMED: 71131267 (4) Respiratory failure requiring intubation ICD Codes: J96.90 - Respiratory failure, unspecified, unspecified whether with hypoxia or hypercapnia; Z68.43 - Body mass index (BMI) 50-59.9 , adult SNOMED: 974117286, 338338911 (5) Morbid obesity with BMI of 50.0-59.9, adult ICD Codes: E66.01 - Morbid (severe) obesity due to excess calories; Z68.43 - Body mass index (BMI) 50-59.9 , adult SNOMED: 305737796, 068145212 Assessment/Plan NGTF pending PEG placement for tomorrow Subjective ROS Limited/Unobtainable: No Allergies: Coded Allergies: No Known Allergies (Unverified , 01/11/14) Objective Last 24 Hour Vital Signs Date Time Temp Pulse Resp B/P (MAP) Pulse Ox O2 Delivery O2 Flow Rate FiO2 02/28/18 10:00 98 20 117/70 (86) 96 02/28/18 09:13 98 20 30 02/28/18 09:00 87 18 97/59 (72) 98 02/28/18 08:00 92 17 97/59 (72) 98 02/28/18 08:00 Mechanical Ventilator 02/28/18 08:00 30 02/28/18 07:42 93 18 99 Mechanical Ventilator 30 02/28/18 07:35 93 16 30 02/28/18 07:34 93 16 99 Mechanical Ventilator 30 02/28/18 07:00 91 16 109/62 (78) 98 02/28/18 06:00 95 16 105/60 (75) 98 02/28/18 05:28 94 21 30 02/28/18 05:00 91 16 97/62 (74) 98 02/28/18 04:00 30 02/28/18 04:00 Mechanical Ventilator 02/28/18 04:00 98.4 95 17 93/57 (69) 98 98.4 02/28/18 04:00 93 02/28/18 03:35 100 18 99 Mechanical Ventilator 30 02/28/18 03:25 100 18 99 Mechanical Ventilator 30 02/28/18 03:23 100 18 30 02/28/18 03:00 92 17 128/73 (91) 98 02/28/18 02:00 92 18 124/66 (85) 95 02/28/18 01:40 90 16 30 02/28/18 01:00 92 18 127/65 (85) 95 02/28/18 00:00 30 02/28/18 00:00 99.0 92 16 112/71 (85) 98 99.0 02/28/18 00:00 95 02/28/18 00:00 Mechanical Ventilator 02/27/18 23:20 91 16 100 Mechanical Ventilator 30 02/27/18 23:15 92 16 30 02/27/18 23:12 92 16 100 Mechanical Ventilator 30 02/27/18 23:00 93 16 118/71 (87) 98 02/27/18 22:00 95 16 137/70 (92) 97 02/27/18 21:21 91 18 30 02/27/18 21:00 94 18 147/68 (94) 98 02/27/18 20:00 97 19 125/62 (83) 97 02/27/18 20:00 97 02/27/18 20:00 Mechanical Ventilator 02/27/18 20:00 30 02/27/18 20:00 99.0 99.0 02/27/18 19:18 97 16 100 Mechanical Ventilator 30 02/27/18 19:11 96 16 98 Mechanical Ventilator 30 02/27/18 19:08 97 19 30 02/27/18 19:00 94 16 147/68 (94) 97 02/27/18 18:00 93 16 109/62 (78) 97 02/27/18 17:29 98 21 30 02/27/18 17:00 98.4 96 19 119/72 (88) 100 98.4 02/27/18 16:00 93 02/27/18 16:00 94 17 138/76 (96) 97 02/27/18 16:00 Mechanical Ventilator 02/27/18 15:31 87 16 100 Mechanical Ventilator 30 02/27/18 15:30 30 02/27/18 15:28 87 16 30 02/27/18 15:23 88 16 100 Mechanical Ventilator 30 02/27/18 15:00 95 16 129/76 (93) 96 02/27/18 14:00 92 16 119/77 (91) 100 02/27/18 13:16 90 16 35 02/27/18 13:15 35 02/27/18 13:00 98.1 91 17 124/73 (90) 100 98.1 02/27/18 12:00 40 02/27/18 12:00 Mechanical Ventilator 02/27/18 12:00 95 02/27/18 12:00 92 16 128/68 (88) 96 02/27/18 11:29 95 16 98 Mechanical Ventilator 40 02/27/18 11:14 95 18 40 02/27/18 11:14 95 18 96 Mechanical Ventilator 40 02/27/18 11:00 94 16 122/70 (87) 97 Intake and Output 02/27/18 02/28/18 19:00 07:00 Intake Total 1485 ml 1620 ml Output Total 1380 ml 3100 ml Balance 105 ml -1480 ml Free Water 180 ml 40 ml IV Total 705 ml 880 ml Tube Feeding 600 ml 600 ml Other 100 ml Output Urine Total 1380 ml 3000 ml Stool Total 100 ml Laboratory Tests 02/27/18 17:45: Vancomycin Level Trough 13.8H Height (Feet): 5 Height (Inches): 7.00 Weight (Pounds): 268 General Appearance: no apparent distress EENT: normal ENT inspection Neck: supple Cardiovascular: normal rate Respiratory/Chest: decreased breath sounds Abdomen: normal bowel sounds, non tender, soft Extremities: non-tender Dave Burgess MD Feb 28, 2018 10:51
[2018-02-28] MEDS ORDERED: Metoclopramide 10mg/2ml Inj IVP PRN (13:46)
--- NOTE | 2018-02-28 14:32 | Infectious Diseases Prog Note ---
Assessment/Plan Assessment/Plan ASSESSMENT AND PLAN: 1. sepsis, leukocytosis, pseudomonas pna, e.coli uti, fungal uti, fungemia risk , lgt, diarrhea, c.diff. negative, respiratory failure, s/p trach - leukocytosis better, chest x-ray stable - meropenem and diflucan - d/w son - monitor labs and chest x-ray 2. Hypertension. Blood pressure treatment per primary, Dr. Matos. 3. Respiratory failure, on vent, weaning per Dr. Matos. 4. Rectal tube and diarrhea. 5. Mistry. 6. Clostridium difficile negative. 7. Parkinson disease. 8. Dysphagia. 9. Aspiration risk. 10. 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 11. History of anemia. 12. Nephrolithiasis. 13. Meningioma. 14. History of breast cancer. 15. History of lumpectomy. 16. Obesity. 17. Obesity hypoventilation syndrome. 18. No known allergies. 19. Social history negative. 20. MAR was noted. 21. Case discussed with RN. 22. Family history noncontributory. 23. Continue treatments per primary consultants. 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 Subjective Constitutional: Reports: other - s/p trach, alert, responsive ; Denies: fever HEENT: Reports: congestion Respiratory: Reports: shortness of breath Cardiovascular: Denies: chest pain Gastrointestinal/Abdominal: Reports: other - + rectal tube; Denies: nausea, vomiting Genitourinary: Reports: other - + mistry Neurologic: Denies: headache Psychiatric: Denies: depression Skin: Denies: rash Hematologic: Denies: bleeding Musculoskeletal: Denies: pain Allergies: Coded Allergies: No Known Allergies (Unverified , 01/11/14) Objective Vital Signs Last 24 Hour Vital Signs Date Time Temp Pulse Resp B/P (MAP) Pulse Ox O2 Delivery O2 Flow Rate FiO2 02/28/18 14:00 104 17 121/73 (89) 96 02/28/18 13:29 102 18 30 02/28/18 13:00 104 16 124/65 (84) 98 02/28/18 12:00 30 02/28/18 12:00 Mechanical Ventilator 02/28/18 12:00 97.7 100 20 109/68 (82) 99 97.7 02/28/18 12:00 96 02/28/18 11:41 96 18 99 Mechanical Ventilator 30 8/5/18 11:30 99 16 30 02/28/18 11:30 95 16 99 Mechanical Ventilator 30 02/28/18 11:00 93 16 116/92 (100) 96 02/28/18 10:00 98 20 117/70 (86) 96 02/28/18 09:13 98 20 30 02/28/18 09:00 87 18 97/59 (72) 98 02/28/18 08:00 97.8 92 17 97/59 (72) 98 97.8 02/28/18 08:00 Mechanical Ventilator 02/28/18 08:00 92 02/28/18 08:00 30 02/28/18 07:42 93 18 99 Mechanical Ventilator 30 02/28/18 07:35 93 16 30 02/28/18 07:34 93 16 99 Mechanical Ventilator 30 02/28/18 07:00 91 16 109/62 (78) 98 02/28/18 06:00 95 16 105/60 (75) 98 02/28/18 05:28 94 21 30 02/28/18 05:00 91 16 97/62 (74) 98 02/28/18 04:00 30 02/28/18 04:00 Mechanical Ventilator 02/28/18 04:00 98.4 95 17 93/57 (69) 98 98.4 02/28/18 04:00 93 02/28/18 03:35 100 18 99 Mechanical Ventilator 30 02/28/18 03:25 100 18 99 Mechanical Ventilator 30 02/28/18 03:23 100 18 30 02/28/18 03:00 92 17 128/73 (91) 98 02/28/18 02:00 92 18 124/66 (85) 95 02/28/18 01:40 90 16 30 02/28/18 01:00 92 18 127/65 (85) 95 02/28/18 00:00 30 02/28/18 00:00 99.0 92 16 112/71 (85) 98 99.0 02/28/18 00:00 95 02/28/18 00:00 Mechanical Ventilator 02/27/18 23:20 91 16 100 Mechanical Ventilator 30 02/27/18 23:15 92 16 30 02/27/18 23:12 92 16 100 Mechanical Ventilator 30 02/27/18 23:00 93 16 118/71 (87) 98 8 22:00 95 16 137/70 (92) 97 8 21:21 91 18 30 8 21:00 94 18 147/68 (94) 98 02/27/18 20:00 97 19 125/62 (83) 97 02/27/18 20:00 97 8 20:00 Mechanical Ventilator 02/27/18 20:00 30 02/27/18 20:00 99.0 99.0 02/27/18 19:18 97 16 100 Mechanical Ventilator 30 02/27/18 19:11 96 16 98 Mechanical Ventilator 30 02/27/18 19:08 97 19 30 02/27/18 19:00 94 16 147/68 (94) 97 02/27/18 18:00 93 16 109/62 (78) 97 02/27/18 17:29 98 21 30 02/27/18 17:00 98.4 96 19 119/72 (88) 100 98.4 02/27/18 16:00 93 02/27/18 16:00 94 17 138/76 (96) 97 02/27/18 16:00 Mechanical Ventilator 02/27/18 15:31 87 16 100 Mechanical Ventilator 30 02/27/18 15:30 30 02/27/18 15:28 87 16 30 02/27/18 15:23 88 16 100 Mechanical Ventilator 30 02/27/18 15:00 95 16 129/76 (93) 96 Height (Feet): 5 Height (Inches): 7.00 Weight (Pounds): 268 General Appearance: no acute distress HEENT: normocephalic, atraumatic, anicteric, status post trach Respiratory/Chest: crackles/rales, rhonchi - bilaterally Cardiovascular: normal rate, regular rhythm, no gallop/murmur, no JVD Abdomen: normal bowel sounds, soft, non tender, no organomegaly, non distended Genitourinary: other - + mistry - urine slt cloudy Extremities: no cyanosis Skin: no rash Neurologic/Psychiatric: global climate change 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 There is increased consolidation of the left lung base. There is generalized mild interstitial congestion again demonstrated. There is probably some pleural fluid on the left. The heart is borderline enlarged. The aorta is tortuous. Again demonstrated are endotracheal and nasogastric tube and a mediastinal stent. Impression: Worsening bilateral basilar infiltrates versus edema, over 2 days Chest x-ray - 02/28 - INDICATION: Infection COMPARISON: Chest x-ray dated 02/26/18 FINDINGS: Single frontal view demonstrates prominent heart size. Nasogastric tube below diaphragm. Tracheostomy. Aortic stent. Mild bilateral lower lobe opacities, right greater than left. No pleural effusions. The visualized osseous structures are within normal limits. IMPRESSION: No significant change. Tubes and lines as outlined above. Mild bilateral lower lobe opacity, right greater than left. Microbiology Date/Time Source Procedure Growth Status 02/26/18 05:45 Blood Blood Culture - Preliminary NO GROWTH AFTER 48 HOURS Resulted 02/26/18 05:30 Blood Blood Culture - Preliminary NO GROWTH AFTER 48 HOURS Resulted 02/26/18 14:17 Throat Gram Stain - Final Resulted 02/26/18 14:17 Aerobic Culture - Preliminary Gram Negative Bacillus 1 Resulted 02/26/18 07:40 Sputum Gram Stain - Final Complete 02/26/18 07:40 Sputum Culture - Final Pseudomonas Aeruginosa Complete 02/26/18 10:00 Indwelling Cath Urine Culture - Final Lorena Albicans Complete 02/26/18 14:17 Trachea Swab Anaerobic Culture - Preliminary NO GROWTH AFTER 48 HOURS Resulted Labs Test 02/26/18 03:55 02/26/18 04:00 02/27/18 04:33 02/27/18 17:45 Arterial Blood pH 7.461 (7.350-7.450) Arterial Blood Partial Pressure CO2 40.9 mmHg (35.0-45.0) Arterial Blood Partial Pressure O2 63.6 mmHg (75.0-100.0) Arterial Blood HCO3 28.5 mmol/L (22.0-26.0) Arterial Blood Oxygen Saturation 92.2 % (92.0-98.0) Arterial Blood Base Excess 4.3 Kerwin Test Positive White Blood Count 18.1 K/UL (4.8-10.8) 11.7 K/UL (4.8-10.8) Red Blood Count 3.68 M/UL (4.20-5.40) 3.25 M/UL (4.20-5.40) Hemoglobin 9.6 G/DL (12.0-16.0) 8.7 G/DL (12.0-16.0) Hematocrit 30.3 % (37.0-47.0) 26.8 % (37.0-47.0) Mean Corpuscular Volume 82 FL (80-99) 82 FL (80-99) Mean Corpuscular Hemoglobin 26.1 PG (27.0-31.0) 26.9 PG (27.0-31.0) Mean Corpuscular Hemoglobin Concent 31.7 G/DL (32.0-36.0) 32.7 G/DL (32.0-36.0) Red Cell Distribution Width 14.7 % (11.6-14.8) 14.7 % (11.6-14.8) Platelet Count 341 K/UL (150-450) 309 K/UL (150-450) Mean Platelet Volume 6.2 FL (6.5-10.1) 6.3 FL (6.5-10.1) Neutrophils (%) (Auto) % (45.0-75.0) 74.9 % (45.0-75.0) Lymphocytes (%) (Auto) % (20.0-45.0) 14.2 % (20.0-45.0) Monocytes (%) (Auto) % (1.0-10.0) 7.3 % (1.0-10.0) Eosinophils (%) (Auto) % (0.0-3.0) 2.5 % (0.0-3.0) Basophils (%) (Auto) % (0.0-2.0) 1.1 % (0.0-2.0) Differential Total Cells Counted 100 Neutrophils % (Manual) 86 % (45-75) Lymphocytes % (Manual) 8 % (20-45) Monocytes % (Manual) 5 % (1-10) Eosinophils % (Manual) 1 % (0-3) Basophils % (Manual) 0 % (0-2) Band Neutrophils 0 % (0-8) Platelet Estimate Adequate Platelet Morphology Normal Hypochromasia 1+ Activated Partial Thromboplast Time 29 SEC (23-33) Sodium Level 136 MMOL/L (136-145) 135 MMOL/L (136-145) Potassium Level 4.6 MMOL/L (3.5-5.1) 4.4 MMOL/L (3.5-5.1) Chloride Level 99 MMOL/L (98-107) 100 MMOL/L (98-107) Carbon Dioxide Level 28 MMOL/L (21-32) 28 MMOL/L (21-32) Anion Gap 9 mmol/L (5-15) 7 mmol/L (5-15) Blood Urea Nitrogen 19 mg/dL (7-18) 16 mg/dL (7-18) Creatinine 1.2 MG/DL (0.55-1.30) 1.1 MG/DL (0.55-1.30) Estimat Glomerular Filtration Rate mL/min (>60) mL/min (>60) Glucose Level 219 MG/DL (74-106) 115 MG/DL (74-106) Calcium Level 10.2 MG/DL (8.5-10.1) 9.4 MG/DL (8.5-10.1) Total Bilirubin 0.4 MG/DL (0.2-1.0) 0.4 MG/DL (0.2-1.0) Aspartate Amino Transf (AST/SGOT) 15 U/L (15-37) 14 U/L (15-37) Alanine Aminotransferase (ALT/SGPT) 13 U/L (12-78) 8 U/L (12-78) Alkaline Phosphatase 97 U/L (46-116) 79 U/L (46-116) Pro-B-Type Natriuretic Peptide 907 pg/mL (0-125) Total Protein 7.5 G/DL (6.4-8.2) 6.9 G/DL (6.4-8.2) Albumin 2.2 G/DL (3.4-5.0) 1.9 G/DL (3.4-5.0) Globulin 5.3 g/dL 5.0 g/dL Albumin/Globulin Ratio 0.4 (1.0-2.7) 0.4 (1.0-2.7) Vancomycin Level Trough 13.8 ug/mL (5.0-12.0) Laboratory Tests Test 02/27/18 17:45 Vancomycin Level Trough 13.8 ug/mL (5.0-12.0) H Current Medications Medications (Trade) Dose Ordered Sig/Roro Route PRN Reason Start Time Stop Time Status Last Admin Dose Admin Acetaminophen (Tylenol) 650 mg Q4H PRN NG Fever/Headache/Mild Pain 02/12/18 02:45 03/14/18 02:44 02/28/18 12:50 Acetaminophen/ Hydrocodone Bitart ([place] 5/325) 1 tab Q4H PRN ORAL Moderate Pain (Pain Scale 4-6) 02/26/18 16:30 03/05/18 16:29 Acetylcysteine (Mucomyst) 200 mg Q4HRT HHN 02/21/18 23:00 03/23/18 22:59 02/28/18 11:31 Albuterol/ Ipratropium (Albuterol/ Ipratropium) 3 ml Q4HRT HHN 02/26/18 23:00 03/03/18 22:59 02/28/18 11:31 Bisacodyl (Dulcolax) 10 mg DAILYPRN PRN RECTAL Constipation 02/20/18 20:15 03/16/18 19:14 Carbidopa/Levodopa (Sinemet 25/100) 1.5 tab THREE TIMES A DAY ORAL 02/25/18 18:00 03/14/18 12:59 02/28/18 13:56 Cinacalcet (Sensipar) 30 mg DAILY ORAL 02/13/18 09:00 03/15/18 08:59 02/28/18 08:39 Clonidine HCl (Catapres Tab) 0.1 mg Q4H PRN ORAL For SBP>170 02/21/18 09:30 03/23/18 09:29 02/26/18 03:31 Diphenhydramine HCl (Benadryl) 25 mg Q4H PRN ORAL Itching 02/27/18 14:15 03/29/18 14:14 Fluconazole/ Sodium Chloride 100 ml @ 100 mls/hr Q24H IV 02/27/18 12:00 03/06/18 11:59 02/28/18 12:11 Insulin Aspart (NovoLOG) 4 units NOVOTIAC SUBQ 02/12/18 11:50 03/14/18 11:49 02/28/18 12:09 Lansoprazole (Prevacid) 30 mg ACBREAKFAST NG 02/12/18 06:30 03/14/18 06:29 02/28/18 06:15 Lorazepam (Ativan 2mg/ml 1ml) 0.5 mg Q3H PRN IV For Anxiety 02/26/18 04:45 03/05/18 04:44 02/26/18 04:48 Meropenem 1 gm/ Sodium Chloride 55 ml @ 110 mls/hr Q12H IVPB 02/26/18 10:00 03/03/18 09:59 02/28/18 10:14 Metoclopramide HCl (Reglan) 10 mg Q6H PRN IVP Nausea & Vomiting 02/28/18 13:46 03/30/18 13:45 02/28/18 13:56 Morphine Sulfate (Morphine Sulfate) 1 mg Q4HR PRN IVP Mild Pain (Pain Scale 1-3) 02/26/18 15:45 03/03/18 15:44 Morphine Sulfate (Morphine Sulfate) 2 mg Q4HR PRN IVP Moderate Pain (Pain Scale 4-6) 02/26/18 15:45 03/03/18 15:44 02/27/18 22:57 Morphine Sulfate (Morphine Sulfate) 4 mg Q4H PRN IVP Severe Pain (Pain Scale 7-10) 02/26/18 15:45 03/03/18 15:44 02/26/18 15:52 Non-Formulary Medication (Non-Formulary Med) 1 ea DAILY TOPIC 02/26/18 09:00 03/28/18 08:59 UNV Ondansetron HCl (Zofran) 4 mg Q4H PRN IVP Nausea & Vomiting 02/13/18 10:30 03/15/18 10:29 02/28/18 12:50 Polyethylene Glycol (Miralax) 17 gm DAILYPRN PRN ORAL Constipation 02/20/18 20:00 03/22/18 19:59 Polymyxin B Sulfate 329408 units/Dextrose 550 ml @ 550 mls/hr EVERY 12 HOURS IV 02/26/18 09:00 03/05/18 08:59 02/28/18 08:38 Potassium Chloride (K-Dur) 20 meq TWICE A DAY NGT 02/16/18 10:00 03/18/18 09:59 02/28/18 08:38 Vancomycin HCl (Vanco rx to dose) 1 ea DAILY PRN MISC Per rx protocol 02/26/18 04:45 03/28/18 04:44 Vancomycin HCl 1 gm/Dextrose 275 ml @ 183.708 mls/hr Q12H IVPB 02/27/18 20:00 03/04/18 19:59 02/28/18 08:38 Celia Capone MD Feb 28, 2018 14:32
[2018-02-28] MEDS: LORazepam Inj 2mg/ml 1ml IV PRN (15:07)
[2018-02-28] MEDS: D5 1/2NS 1,000 ML IV SCH (18:54)
--- NOTE | 2018-02-28 20:14 | Pulmonolgy Critical Care Note ---
Critical Care - Asmt/Plan Assessment/Plan: 1. Acute respiratory failure. sp trach 02/26 2. Extensive pneumonia, left lung. 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 Parkinson's disease. 6. Esophageal dysmotility. 7. Morbid obesity with obesity hypoventilation syndrome. 8. Hypertension. Currently normotensive. 9. Nephrolithiasis and renal mass. 10. History of breast cancer. 11. UTI 12. diarrhea PLAN Gt in am agressive weaning diuresis nebs and suction labs in am, replace lytes prn pressors for MAP less than 65 mmhg wound care Nutrition continue ICU 35 min of CCT spent with pt, reviewing chart discussing plan with nursing. Respiratory: weaning trial Time Spent (Minutes): 50 Discussed with: nurses Critical Care - Objective Last 24 Hour Vital Signs Date Time Temp Pulse Resp B/P (MAP) Pulse Ox O2 Delivery O2 Flow Rate FiO2 02/28/18 20:00 Mechanical Ventilator 02/28/18 20:00 30 02/28/18 19:31 97 02/28/18 19:27 110 20 100 Mechanical Ventilator 30 02/28/18 19:12 105 23 97 Mechanical Ventilator 30 02/28/18 19:11 105 23 30 02/28/18 19:00 97 19 102/80 (87) 100 02/28/18 18:00 96 19 139/95 (110) 99 02/28/18 17:00 98.5 98 21 118/77 (91) 99 98.5 02/28/18 16:55 96 16 30 02/28/18 16:00 95 02/28/18 16:00 99 17 112/65 (81) 99 02/28/18 16:00 Mechanical Ventilator 02/28/18 16:00 30 02/28/18 15:21 95 16 99 Mechanical Ventilator 30 02/28/18 15:14 99 16 99 Mechanical Ventilator 30 02/28/18 15:14 99 16 30 02/28/18 15:00 103 20 122/68 (86) 100 02/28/18 14:00 104 17 121/73 (89) 96 02/28/18 13:29 102 18 30 02/28/18 13:00 104 16 124/65 (84) 98 02/28/18 12:00 30 02/28/18 12:00 Mechanical Ventilator 02/28/18 12:00 97.7 100 20 109/68 (82) 99 97.7 02/28/18 12:00 96 02/28/18 11:41 96 18 99 Mechanical Ventilator 30 02/28/18 11:30 99 16 30 02/28/18 11:30 95 16 99 Mechanical Ventilator 30 02/28/18 11:00 93 16 116/92 (100) 96 02/28/18 10:00 98 20 117/70 (86) 96 02/28/18 09:13 98 20 30 02/28/18 09:00 87 18 97/59 (72) 98 02/28/18 08:00 97.8 92 17 97/59 (72) 98 97.8 02/28/18 08:00 Mechanical Ventilator 02/28/18 08:00 92 02/28/18 08:00 30 02/28/18 07:42 93 18 99 Mechanical Ventilator 30 02/28/18 07:35 93 16 30 02/28/18 07:34 93 16 99 Mechanical Ventilator 30 02/28/18 07:00 91 16 109/62 (78) 98 02/28/18 06:00 95 16 105/60 (75) 98 02/28/18 05:28 94 21 30 02/28/18 05:00 91 16 97/62 (74) 98 02/28/18 04:00 30 02/28/18 04:00 Mechanical Ventilator 02/28/18 04:00 98.4 95 17 93/57 (69) 98 98.4 02/28/18 04:00 93 02/28/18 03:35 100 18 99 Mechanical Ventilator 30 02/28/18 03:25 100 18 99 Mechanical Ventilator 30 02/28/18 03:23 100 18 30 02/28/18 03:00 92 17 128/73 (91) 98 02/28/18 02:00 92 18 124/66 (85) 95 02/28/18 01:40 90 16 30 02/28/18 01:00 92 18 127/65 (85) 95 02/28/18 00:00 30 02/28/18 00:00 99.0 92 16 112/71 (85) 98 99.0 02/28/18 00:00 95 02/28/18 00:00 Mechanical Ventilator 02/27/18 23:20 91 16 100 Mechanical Ventilator 30 02/27/18 23:15 92 16 30 02/27/18 23:12 92 16 100 Mechanical Ventilator 30 02/27/18 23:00 93 16 118/71 (87) 98 02/27/18 22:00 95 16 137/70 (92) 97 02/27/18 21:21 91 18 30 02/27/18 21:00 94 18 147/68 (94) 98 Status: awake Lungs: rhonchi Heart: HR/BP stable Abdomen: soft, non-tender Extremities: edema Micro: Microbiology Date/Time Source Procedure Growth Status 02/26/18 05:45 Blood Blood Culture - Preliminary NO GROWTH AFTER 48 HOURS Resulted 02/26/18 05:30 Blood Blood Culture - Preliminary NO GROWTH AFTER 48 HOURS Resulted 02/26/18 14:17 Throat Gram Stain - Final Resulted 02/26/18 14:17 Aerobic Culture - Preliminary Gram Negative Bacillus 1 Resulted 02/26/18 07:40 Sputum Gram Stain - Final Complete 02/26/18 07:40 Sputum Culture - Final Pseudomonas Aeruginosa Complete 02/26/18 10:00 Indwelling Cath Urine Culture - Final Lorena Albicans Complete 02/26/18 14:17 Trachea Swab Anaerobic Culture - Preliminary NO GROWTH AFTER 48 HOURS Resulted Accucheck: 112 Critical Care - Subjective ROS Limited/Unobtainable: Yes Condition: improving FI02: 30 Vent Support Breath Rate: 16 Vent Support Mode: AC Vent Tidal Volume: 500 Sputum Amount: Small PEEP: 5.0 PIP: 26 Tube Feeding Amount: 10 I&O: Intake and Output 02/27/18 02/28/18 19:00 07:00 Intake Total 1485 ml 1620 ml Output Total 1380 ml 3100 ml Balance 105 ml -1480 ml Free Water 180 ml 40 ml IV Total 705 ml 880 ml Tube Feeding 600 ml 600 ml Other 100 ml Output Urine Total 1380 ml 3000 ml Stool Total 100 ml Subjective: sp trach and removal of tracheal stent secretions noted no cp or bleeding positive uop increased rhonchi cxr wtih incresed infiltrates did not wean today as her son requested only weanign at 1230 when she is fully awake. noted with NV today, tf resumed at 10 cc hour for GT in am CXR: IMPRESSION: No significant change. Tubes and lines as outlined above. Mild bilateral lower lobe opacity, right greater than left. ET-Tube: 7.5 ET Position: 23 Labs: Current Medications Medications (Trade) Dose Ordered Sig/Roro Route PRN Reason Start Time Stop Time Status Last Admin Dose Admin Acetaminophen (Tylenol) 650 mg Q4H PRN NG Fever/Headache/Mild Pain 02/12/18 02:45 03/14/18 02:44 02/28/18 12:50 Acetaminophen/ Hydrocodone Bitart ([place] 5/325) 1 tab Q4H PRN ORAL Moderate Pain (Pain Scale 4-6) 02/26/18 16:30 03/05/18 16:29 Acetylcysteine (Mucomyst) 200 mg Q4HRT N 02/21/18 23:00 03/23/18 22:59 02/28/18 19:12 Albuterol/ Ipratropium (Albuterol/ Ipratropium) 3 ml Q4HRT HHN 02/26/18 23:00 03/03/18 22:59 02/28/18 19:12 Bisacodyl (Dulcolax) 10 mg DAILYPRN PRN RECTAL Constipation 02/20/18 20:15 03/16/18 19:14 Carbidopa/Levodopa (Sinemet 25/100) 1.5 tab THREE TIMES A DAY ORAL 02/25/18 18:00 03/14/18 12:59 02/28/18 17:45 Cinacalcet (Sensipar) 30 mg DAILY ORAL 02/13/18 09:00 03/15/18 08:59 02/28/18 08:39 Clonidine HCl (Catapres Tab) 0.1 mg Q4H PRN ORAL For SBP>170 02/21/18 09:30 03/23/18 09:29 02/26/18 03:31 Dextrose/Sodium Chloride 1,000 ml @ 75 mls/hr [id number] IV 02/28/18 18:30 03/30/18 18:29 02/28/18 18:54 Diphenhydramine HCl (Benadryl) 25 mg Q4H PRN ORAL Itching 02/27/18 14:15 03/29/18 14:14 Fluconazole/ Sodium Chloride 100 ml @ 100 mls/hr Q24H IV 02/27/18 12:00 03/06/18 11:59 02/28/18 12:11 Insulin Aspart (NovoLOG) 4 units NOVOTIAC SUBQ 7/20/18 11:50 03/14/18 11:49 02/28/18 16:53 Lansoprazole (Prevacid) 30 mg ACBREAKFAST NG 02/12/18 06:30 03/14/18 06:29 02/28/18 06:15 Lorazepam (Ativan 2mg/ml 1ml) 0.5 mg Q3H PRN IV For Anxiety 02/26/18 04:45 03/05/18 04:44 02/28/18 15:07 Meropenem 1 gm/ Sodium Chloride 55 ml @ 110 mls/hr Q8H IVPB 02/28/18 18:00 03/05/18 17:59 02/28/18 17:45 Metoclopramide HCl (Reglan) 10 mg Q6H PRN IVP Nausea & Vomiting 02/28/18 13:46 03/30/18 13:45 02/28/18 13:56 Morphine Sulfate (Morphine Sulfate) 1 mg Q4HR PRN IVP Mild Pain (Pain Scale 1-3) 02/26/18 15:45 03/03/18 15:44 Morphine Sulfate (Morphine Sulfate) 2 mg Q4HR PRN IVP Moderate Pain (Pain Scale 4-6) 02/26/18 15:45 03/03/18 15:44 02/27/18 22:57 Morphine Sulfate (Morphine Sulfate) 4 mg Q4H PRN IVP Severe Pain (Pain Scale 7-10) 02/26/18 15:45 03/03/18 15:44 02/26/18 15:52 Non-Formulary Medication (Non-Formulary Med) 1 ea DAILY TOPIC 02/26/18 09:00 03/28/18 08:59 UNV Ondansetron HCl (Zofran) 4 mg Q4H PRN IVP Nausea & Vomiting 02/13/18 10:30 03/15/18 10:29 02/28/18 12:50 Polyethylene Glycol (Miralax) 17 gm DAILYPRN PRN ORAL Constipation 02/20/18 20:00 03/22/18 19:59 Potassium Chloride (K-Dur) 20 meq TWICE A DAY NGT 02/16/18 10:00 03/18/18 09:59 02/28/18 17:45 Rosa Darling DO Feb 28, 2018 20:14
[2018-02-28] MEDS ORDERED: Meropenem 1 GM in NS 55 ML IVPB SCH (22:00)
[2018-03-01] VITALS (24 sets, daily range): BP systolic 106–159; BP diastolic 56–105
[2018-03-01] MEDS: Meropenem 1 GM in NS 55 ML IVPB SCH ×3 (02:39→17:40)
[2018-03-01] MEDS: Acetylcysteine 20% Soln 4ml HHN SCH ×6 (03:08→23:15)
[2018-03-01] MEDS: Albuterol/Ipratropium 3ml neb HHN SCH ×6 (03:08→23:15)
[2018-03-01] MEDS: LORazepam Inj 2mg/ml 1ml IV PRN ×2 (03:30→13:28)
[2018-03-01 05:17] LABS: BASOPHILS % (AUTO) 1.5 % (0.0-2.0); EOSINOPHILS % (AUTO) 7.4 % (0.0-3.0); HEMATOCRIT 27.8 % (37.0-47.0); HEMOGLOBIN 8.6 G/DL (12.0-16.0); LYMPHOCYTES % (AUTO) 25.9 % (20.0-45.0); MEAN CORPUSCULAR VOLUME 82 FL (80-99); NEUTROPHILS % (AUTO) 54.2 % (45.0-75.0); PLATELET COUNT 399 K/UL (150-450); RED CELL DISTRIBUTION WIDTH 14.8 % (11.6-14.8)
[2018-03-01 05:24] LABS: INR 1.1 (0.9-1.1)
[2018-03-01 05:33] LABS: ANION GAP 6 mmol/L (5-15); BLOOD UREA NITROGEN 14 mg/dL (7-18); CALCIUM 9.7 MG/DL (8.5-10.1); CARBON DIOXIDE 27 MMOL/L (21-32); CHLORIDE 104 MMOL/L (98-107); CREATININE 1.2 MG/DL (0.55-1.30); POTASSIUM 4.4 MMOL/L (3.5-5.1); SODIUM 137 MMOL/L (136-145)
[2018-03-01] MEDS: NovoLOG Insulin Flexpen SUBQ SCH ×3 (06:27→17:45)
[2018-03-01] MEDS: D5 1/2NS 1,000 ML IV SCH ×2 (07:53→20:02)
[2018-03-01] MEDS: Morphine Sulfate 2mg/ml Inj(IV/IM USE ONLY) IVP PRN ×2 (07:53→18:18)
--- NOTE | 2018-03-01 10:13 | Anethesia Preoperative Eval ---
Anesthesia Pre-op PMH/ROS General Date of Evaluation: Mar 01, 2018 Time of Evaluation: 10:06 Anesthesiologist: Aditya ASA Score: ASA 4 Mallampati Score Class I : Soft palate, uvula, fauces, pillars visible Class II: Soft palate, uvula, fauces visible Class III: Soft palate, base of uvula visible Class IV: Only hard plate visible Mallampati Classification: Class III Surgeon: Nery Diagnosis: Dysphagia Surgical Procedure: EGD PEG Anesthesia History: none Family History: no anesthesia problems Allergies: Coded Allergies: No Known Allergies (Unverified , 01/11/14) Medications: see eMAR Past Medical History Cardiovascular: Reports: HTN, CAD; Denies: TX, valve dz, arrhythmia, other Pulmonary: Reports: other - Respiratory failure; Denies: asthma, COPD, MIRIAM Gastrointestinal/Genitourinary: Reports: GERD, other - gysphagia; Denies: CRI, ESRD Neurologic/Psychiatric: Reports: dementia, CVA; Denies: depression/anxiety, TIA, other Endocrine: Denies: DM, hypothyroidism, steroids, other HEENT: Denies: cataract (L), cataract (R), glaucoma, [place] (L), [place] (R), other Hematology/Immune: Reports: anemia; Denies: DVT, bleeding disorder, other Musculoskeletal/Integumentary: Reports: DJD, other - contracted Other: obesity PMH Narrative: as above PSxH Narrative: see chart Anesthesia Pre-op Phys. Exam Physician Exam Last Vital Signs Date Time Temp Pulse Resp B/P (MAP) Pulse Ox O2 Delivery O2 Flow Rate FiO2 03/01/18 09:00 98 16 126/68 (87) 98 03/01/18 08:23 98.6 03/01/18 08:00 30 03/01/18 08:00 Mechanical Ventilator Constitutional: NAD Neurologic: other - unable to obtaine Cardiovascular: RRR Respiratory: CTA Gastrointestinal: other - obesity Airway Exam Mallampati Score: Class III MO: limited Neck: stiff ROM: limited Teeth: missing Dentures: no upper, no lower Anesthesia Pre-op A/P Labs Hematology Test 03/01/18 05:03 White Blood Count 5.0 K/UL (4.8-10.8) Red Blood Count 3.40 M/UL (4.20-5.40) L Hemoglobin 8.6 G/DL (12.0-16.0) L Hematocrit 27.8 % (37.0-47.0) L Mean Corpuscular Volume 82 FL (80-99) Mean Corpuscular Hemoglobin 25.4 PG (27.0-31.0) L Mean Corpuscular Hemoglobin Concent 31.0 G/DL (32.0-36.0) L Red Cell Distribution Width 14.8 % (11.6-14.8) Platelet Count 399 K/UL (150-450) Mean Platelet Volume 5.3 FL (6.5-10.1) L Neutrophils (%) (Auto) 54.2 % (45.0-75.0) Lymphocytes (%) (Auto) 25.9 % (20.0-45.0) Monocytes (%) (Auto) 11.0 % (1.0-10.0) H Eosinophils (%) (Auto) 7.4 % (0.0-3.0) H Basophils (%) (Auto) 1.5 % (0.0-2.0) Coagulation Test 03/01/18 05:03 Prothrombin Time 11.4 SEC (9.30-11.50) Prothromb Time International Ratio 1.1 (0.9-1.1) Activated Partial Thromboplast Time 30 SEC (23-33) Chemistry Test 03/01/18 05:03 Sodium Level 137 MMOL/L (136-145) Potassium Level 4.4 MMOL/L (3.5-5.1) Chloride Level 104 MMOL/L (98-107) Carbon Dioxide Level 27 MMOL/L (21-32) Anion Gap 6 mmol/L (5-15) Blood Urea Nitrogen 14 mg/dL (7-18) Creatinine 1.2 MG/DL (0.55-1.30) Estimat Glomerular Filtration Rate mL/min (>60) Glucose Level 120 MG/DL (74-106) H Calcium Level 9.7 MG/DL (8.5-10.1) Risk Assessment & Plan Assessment: ASA 4 Plan: MAC Status Change Before Surgery: No Pre-Antibiotics Drug: none Raphael Burgess MD Mar 01, 2018 10:13
--- NOTE | 2018-03-01 10:31 | General Progress Note ---
Assessment/Plan Assessment/Plan Assessment - respiratory failure - s/p trach - s/p tracheal stent - anemia, OB (-) x 3 Recommendations - NPO - follow labs - check Iron panel - EGD / PEG today Subjective Allergies: Coded Allergies: No Known Allergies (Unverified , 01/11/14) Subjective awake communicating via alphabet board d/w son, Gómez, yesterday - agreed to PEG Son asked that consent be obtained directly from patient Indications and risks d/w patient, all questions answered Patient agreeable to proceed CXR reviewed with radiology [facility] records reviewed - patient with history of tracheal stent x [address] Villeda, one stent removed at time of tracheostomy One stent remaining on CXR Objective Last 24 Hour Vital Signs Date Time Temp Pulse Resp B/P (MAP) Pulse Ox O2 Delivery O2 Flow Rate FiO2 03/01/18 10:00 95 16 127/77 (94) 98 03/01/18 09:00 98 16 126/68 (87) 98 03/01/18 09:00 100 17 30 03/01/18 08:23 98.6 03/01/18 08:00 98.7 99 16 144/105 (118) 98 98.7 03/01/18 08:00 30 03/01/18 08:00 Mechanical Ventilator 03/01/18 08:00 107 03/01/18 07:53 98.6 03/01/18 07:25 100 17 99 Mechanical Ventilator 30 03/01/18 07:19 91 16 97 Mechanical Ventilator 30 03/01/18 07:00 95 16 111/69 (83) 98 03/01/18 07:00 91 16 30 03/01/18 06:00 94 16 132/74 (93) 98 03/01/18 05:00 92 16 30 03/01/18 05:00 99 16 115/66 (82) 96 03/01/18 04:00 98.6 92 16 107/57 (74) 98 98.6 03/01/18 04:00 Mechanical Ventilator 03/01/18 04:00 30 03/01/18 03:28 92 03/01/18 03:20 96 16 99 Mechanical Ventilator 30 03/01/18 03:07 94 16 100 Mechanical Ventilator 30 03/01/18 03:06 94 16 30 03/01/18 03:00 94 16 106/75 (85) 96 03/01/18 02:00 95 16 115/58 (77) 97 818 01:15 96 16 30 818 01:00 96 16 125/63 (83) 96 03/01/18 00:26 99 8/18 00:00 Mechanical Ventilator 03/01/18 00:00 98.6 98 18 109/70 (83) 97 98.6 03/01/18 00:00 30 8 23:27 105 19 100 Mechanical Ventilator 30 02/28/18 23:12 90 16 97 Mechanical Ventilator 30 02/28/18 23:11 90 16 30 02/28/18 23:00 94 17 98/64 (75) 97 02/28/18 22:00 97 17 93/53 (66) 97 02/28/18 21:00 97 19 119/71 (87) 100 02/28/18 20:55 98 16 30 02/28/18 20:00 Mechanical Ventilator 02/28/18 20:00 30 02/28/18 20:00 98.5 97 19 140/85 (103) 100 98.5 02/28/18 19:31 97 02/28/18 19:27 110 20 100 Mechanical Ventilator 30 02/28/18 19:12 105 23 97 Mechanical Ventilator 30 02/28/18 19:11 105 23 30 02/28/18 19:00 97 19 102/80 (87) 100 02/28/18 18:00 96 19 139/95 (110) 99 02/28/18 17:00 98.5 98 21 118/77 (91) 99 98.5 02/28/18 16:55 96 16 30 02/28/18 16:00 95 02/28/18 16:00 99 17 112/65 (81) 99 02/28/18 16:00 Mechanical Ventilator 02/28/18 16:00 30 02/28/18 15:21 95 16 99 Mechanical Ventilator 30 02/28/18 15:14 99 16 99 Mechanical Ventilator 30 02/28/18 15:14 99 16 30 18 15:00 103 20 122/68 (86) 100 8 14:00 104 17 121/73 (89) 96 02/28/18 13:29 102 18 30 02/28/18 13:00 104 16 124/65 (84) 98 8//18 12:00 30 02/28/18 12:00 Mechanical Ventilator 02/28/18 12:00 97.7 100 20 109/68 (82) 99 97.7 02/28/18 12:00 96 02/28/18 11:41 96 18 99 Mechanical Ventilator 30 02/28/18 11:30 99 16 30 02/28/18 11:30 95 16 99 Mechanical Ventilator 30 02/28/18 11:00 93 16 116/92 (100) 96 Intake and Output 02/28/18 03/01/18 19:00 07:00 Intake Total 1325.000 ml 1025 ml Output Total 2430 ml 1250 ml Balance -1105.000 ml -225 ml IV Total 1035.000 ml 955 ml Tube Feeding 240 ml 70 ml Other 50 ml Output Urine Total 2330 ml 1250 ml Stool Total 100 ml Laboratory Tests 03/01/18 05:03: White Blood Count 5.0, Red Blood Count 3.40L, Hemoglobin 8.6L, Hematocrit 27.8L , Mean Corpuscular Volume 82, Mean Corpuscular Hemoglobin 25.4L, Mean Corpuscular Hemoglobin Concent 31.0L, Red Cell Distribution Width 14.8, Platelet Count 399, Mean Platelet Volume 5.3L, Neutrophils (%) (Auto) 54.2, Lymphocytes (%) (Auto) 25.9, Monocytes (%) (Auto) 11.0H, Eosinophils (%) (Auto) 7.4H, Basophils (%) (Auto) 1.5, Prothrombin Time 11.4, Prothromb Time International Ratio 1.1, Activated Partial Thromboplast Time 30, Sodium Level 137, Potassium Level 4.4, Chloride Level 104, Carbon Dioxide Level 27, Anion Gap 6, Blood Urea Nitrogen 14, Creatinine 1.2, Estimat Glomerular Filtration Rate , Glucose Level 120H, Calcium Level 9.7 Height (Feet): 5 Height (Inches): 6.00 Weight (Pounds): 267 Objective WDWN NCAT Neck: (+) trach CTA RRR Abd Soft ND NT no edema neuro: awake and alert Nell Gabriel MD Mar 01, 2018 10:31
--- NOTE | 2018-03-01 10:42 | Pre-Procedure Note/Attestation ---
Pre-Procedure Note/Attestation Complete Prior to Procedure Planned Procedure: not applicable Attestation I attest that I discussed the nature of the procedure; its benefits; risks and complications; and alternatives (and the risks and benefits of such alternatives ), prior to the procedure, with the patient and her son. 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 I attest that I re-evaluated the patient just prior to the surgery and that there has been no change in the patient's H&P, except as documented below: Nell Gabriel MD Mar 01, 2018 10:42
[2018-03-01] MEDS ORDERED: Propofol 200mg/20ml IV ONE (11:00)
[2018-03-01] MEDS ORDERED: fentaNYL 100 mcg/2 mL IV ONE (11:00)
[2018-03-01] MEDS ORDERED: Midazolam 2mg/2ml Inj ONE (11:00)
[2018-03-01] MEDS ORDERED: Isovue-300 100ml vial INJ PRN (11:15)
--- NOTE | 2018-03-01 11:20 | Immediate Post-Op Evaluation ---
Immediate Post-Op Evalulation Immediate Post-Op Evalulation Procedure: EGD PEG tube placement Date of Evaluation: Mar 01, 2018 Time of Evaluation: 11:19 IV Fluids: 100 Blood Products: none Estimated Blood Loss: min Urinary Output: none Blood Pressure Systolic: 116 Blood Pressure Diastolic: 56 Pulse Rate: 64 Respiratory Rate: 20 O2 Sat by Pulse Oximetry: 97 Temperature (Fahrenheit): 97.6 Pain Score (1-10): 1 Nausea: No Vomiting: No Complications none Patient Status: reacts, ventilated, none Hydration Status: adequate Raphael Burgess MD Mar 01, 2018 11:20
[2018-03-01] MEDS: Levodopa/Carbidopa 25/100 tab ORAL SCH ×3 (11:43→17:40)
[2018-03-01] MEDS: Sensipar 30mg Tab ORAL SCH (11:43)
--- NOTE | 2018-03-01 11:53 | Infectious Diseases Prog Note ---
Assessment/Plan Assessment/Plan ASSESSMENT AND PLAN: 1. sepsis, leukocytosis, pseudomonas pna, e.coli uti, fungal uti, fungemia risk , lgt, diarrhea, c.diff. negative, respiratory failure, s/p trach - leukocytosis resolved, chest x-ray stable - meropenem and diflucan - monitor labs and chest x-ray 2. Hypertension. Blood pressure treatment per primary, Dr. Matos. 3. Respiratory failure, on vent, weaning per Dr. Matos. 4. Rectal tube and diarrhea. 5. Mistry. 6. Clostridium difficile negative. 7. Parkinson disease. 8. Dysphagia. 9. Aspiration risk. 10. 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 11. History of anemia. 12. Nephrolithiasis. 13. Meningioma. 14. History of breast cancer. 15. History of lumpectomy. 16. Obesity. 17. Obesity hypoventilation syndrome. 18. No known allergies. 19. Social history negative. 20. MAR was noted. 21. Case discussed with RN. 22. Family history noncontributory. 23. Continue treatments per primary consultants. 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 Subjective Constitutional: Reports: other - + trach and vent; Denies: fever HEENT: Reports: other - + trach Respiratory: Reports: shortness of breath Gastrointestinal/Abdominal: Reports: diarrhea; Denies: nausea, vomiting Genitourinary: Reports: other - + mistry Allergies: Coded Allergies: No Known Allergies (Unverified , 01/11/14) Objective Vital Signs Last 24 Hour Vital Signs Date Time Temp Pulse Resp B/P (MAP) Pulse Ox O2 Delivery O2 Flow Rate FiO2 03/01/18 11:36 95 16 97 Mechanical Ventilator 30 03/01/18 11:20 207.7 64 20 97 03/01/18 11:00 101 16 127/82 (97) 98 03/01/18 10:45 95 16 30 03/01/18 10:00 95 16 127/77 (94) 98 03/01/18 09:00 98 16 126/68 (87) 98 03/01/18 09:00 100 17 30 03/01/18 08:23 98.6 03/01/18 08:00 98.7 99 16 144/105 (118) 98 98.7 03/01/18 08:00 30 03/01/18 08:00 Mechanical Ventilator 03/01/18 08:00 107 03/01/18 07:53 98.6 03/01/18 07:25 100 17 99 Mechanical Ventilator 30 03/01/18 07:19 91 16 97 Mechanical Ventilator 30 03/01/18 07:00 95 16 111/69 (83) 98 03/01/18 07:00 91 16 30 03/01/18 06:00 94 16 132/74 (93) 98 03/01/18 05:00 92 16 30 03/01/18 05:00 99 16 115/66 (82) 96 03/01/18 04:00 98.6 92 16 107/57 (74) 98 98.6 03/01/18 04:00 Mechanical Ventilator 03/01/18 04:00 30 03/01/18 03:28 92 03/01/18 03:20 96 16 99 Mechanical Ventilator 30 03/01/18 03:07 94 16 100 Mechanical Ventilator 30 03/01/18 03:06 94 16 30 03/01/18 03:00 94 16 106/75 (85) 96 03/01/18 02:00 95 16 115/58 (77) 97 03/01/18 01:15 96 16 30 03/01/18 01:00 96 16 125/63 (83) 96 03/01/18 00:26 99 03/01/18 00:00 Mechanical Ventilator 03/01/18 00:00 98.6 98 18 109/70 (83) 97 98.6 03/01/18 00:00 30 02/28/18 23:27 105 19 100 Mechanical Ventilator 30 02/28/18 23:12 90 16 97 Mechanical Ventilator 30 02/28/18 23:11 90 16 30 02/28/18 23:00 94 17 98/64 (75) 97 02/28/18 22:00 97 17 93/53 (66) 97 02/28/18 21:00 97 19 119/71 (87) 100 02/28/18 20:55 98 16 30 02/28/18 20:00 Mechanical Ventilator 02/28/18 20:00 30 02/28/18 20:00 98.5 97 19 140/85 (103) 100 98.5 02/28/18 19:31 97 02/28/18 19:27 110 20 100 Mechanical Ventilator 30 8/5/18 19:12 105 23 97 Mechanical Ventilator 30 02/28/18 19:11 105 23 30 02/28/18 19:00 97 19 102/80 (87) 100 02/28/18 18:00 96 19 139/95 (110) 99 02/28/18 17:00 98.5 98 21 118/77 (91) 99 98.5 02/28/18 16:55 96 16 30 02/28/18 16:00 95 02/28/18 16:00 99 17 112/65 (81) 99 02/28/18 16:00 Mechanical Ventilator 02/28/18 16:00 30 02/28/18 15:21 95 16 99 Mechanical Ventilator 30 02/28/18 15:14 99 16 99 Mechanical Ventilator 30 02/28/18 15:14 99 16 30 02/28/18 15:00 103 20 122/68 (86) 100 02/28/18 14:00 104 17 121/73 (89) 96 02/28/18 13:29 102 18 30 02/28/18 13:00 104 16 124/65 (84) 98 02/28/18 12:00 30 02/28/18 12:00 Mechanical Ventilator 02/28/18 12:00 97.7 100 20 109/68 (82) 99 97.7 02/28/18 12:00 96 Height (Feet): 5 Height (Inches): 6.00 Weight (Pounds): 267 HEENT: normocephalic, atraumatic, anicteric Respiratory/Chest: crackles/rales, rhonchi - bilaterally Cardiovascular: normal rate, regular rhythm, tachycardia Abdomen: normal bowel sounds, soft, non tender, no organomegaly Objective Chest -x -ray - 02/26 - Findings: Increased consolidation is seen in the right perihilar region and right lung base. There is increased consolidation of the left lung base. There is generalized mild interstitial congestion again demonstrated. There is probably some pleural fluid on the left. The heart is borderline enlarged. The aorta is tortuous. Again demonstrated are endotracheal and nasogastric tube and a mediastinal stent. Impression: Worsening bilateral basilar infiltrates versus edema, over 2 days Chest x-ray - 02/28 - INDICATION: Infection COMPARISON: Chest x-ray dated 02/26/18 FINDINGS: Single frontal view demonstrates prominent heart size. Nasogastric tube below diaphragm. Tracheostomy. Aortic stent. Mild bilateral lower lobe opacities, right greater than left. No pleural effusions. The visualized osseous structures are within normal limits. IMPRESSION: No significant change. Tubes and lines as outlined above. Mild bilateral lower lobe opacity, right greater than left. Microbiology Date/Time Source Procedure Growth Status 02/26/18 14:17 Throat Gram Stain - Final Complete 02/26/18 14:17 Aerobic Culture - Final Pseudomonas Aeruginosa Complete 02/26/18 14:17 Trachea Swab Anaerobic Culture - Preliminary NO GROWTH AFTER 48 HOURS Resulted Laboratory Tests Test 03/01/18 05:03 White Blood Count 5.0 K/UL (4.8-10.8) Red Blood Count 3.40 M/UL (4.20-5.40) L Hemoglobin 8.6 G/DL (12.0-16.0) L Hematocrit 27.8 % (37.0-47.0) L Mean Corpuscular Volume 82 FL (80-99) Mean Corpuscular Hemoglobin 25.4 PG (27.0-31.0) L Mean Corpuscular Hemoglobin Concent 31.0 G/DL (32.0-36.0) L Red Cell Distribution Width 14.8 % (11.6-14.8) Platelet Count 399 K/UL (150-450) Mean Platelet Volume 5.3 FL (6.5-10.1) L Neutrophils (%) (Auto) 54.2 % (45.0-75.0) Lymphocytes (%) (Auto) 25.9 % (20.0-45.0) Monocytes (%) (Auto) 11.0 % (1.0-10.0) H Eosinophils (%) (Auto) 7.4 % (0.0-3.0) H Basophils (%) (Auto) 1.5 % (0.0-2.0) Prothrombin Time 11.4 SEC (9.30-11.50) Prothromb Time International Ratio 1.1 (0.9-1.1) Activated Partial Thromboplast Time 30 SEC (23-33) Sodium Level 137 MMOL/L (136-145) Potassium Level 4.4 MMOL/L (3.5-5.1) Chloride Level 104 MMOL/L (98-107) Carbon Dioxide Level 27 MMOL/L (21-32) Anion Gap 6 mmol/L (5-15) Blood Urea Nitrogen 14 mg/dL (7-18) Creatinine 1.2 MG/DL (0.55-1.30) Estimat Glomerular Filtration Rate mL/min (>60) Glucose Level 120 MG/DL (74-106) H Calcium Level 9.7 MG/DL (8.5-10.1) Current Medications Medications (Trade) Dose Ordered Sig/Roro Route PRN Reason Start Time Stop Time Status Last Admin Dose Admin Acetaminophen (Tylenol) 650 mg Q4H PRN NG Fever/Headache/Mild Pain 02/12/18 02:45 03/14/18 02:44 02/28/18 21:15 Acetaminophen/ Hydrocodone Bitart (Aurora 5/325) 1 tab Q4H PRN ORAL Moderate Pain (Pain Scale 4-6) 02/26/18 16:30 03/05/18 16:29 Acetylcysteine (Mucomyst) 200 mg Q4HRT N 02/21/18 23:00 03/23/18 22:59 03/01/18 11:36 Albuterol/ Ipratropium (Albuterol/ Ipratropium) 3 ml Q4HRT N 02/26/18 23:00 03/03/18 22:59 03/01/18 11:36 Barium Sulfate (Readi-Cat 2) 450 ml NOW PRN ORAL Radiology Procedure 03/01/18 11:15 03/03/18 11:09 Bisacodyl (Dulcolax) 10 mg DAILYPRN PRN RECTAL Constipation 02/20/18 20:15 03/16/18 19:14 Carbidopa/Levodopa (Sinemet 25/100) 1.5 tab THREE TIMES A DAY ORAL 02/25/18 18:00 03/14/18 12:59 03/01/18 11:43 Cinacalcet (Sensipar) 30 mg DAILY ORAL 02/13/18 09:00 03/15/18 08:59 03/01/18 11:43 Clonidine HCl (Catapres Tab) 0.1 mg Q4H PRN ORAL For SBP>170 02/21/18 09:30 03/23/18 09:29 02/26/18 03:31 Dextrose/Sodium Chloride 1,000 ml @ 75 mls/hr [id number] IV 02/28/18 18:30 03/30/18 18:29 03/01/18 07:53 Diphenhydramine HCl (Benadryl) 25 mg Q4H PRN ORAL Itching 02/27/18 14:15 03/29/18 14:14 Fluconazole/ Sodium Chloride 100 ml @ 100 mls/hr Q24H IV 02/27/18 12:00 03/06/18 11:59 03/01/18 11:44 Insulin Aspart (NovoLOG) 4 units NOVOTIAC SUBQ 02/12/18 11:50 03/14/18 11:49 02/28/18 16:53 Iopamidol (Isovue-300 100ml) 100 ml NOW PRN INJ Radiology Procedure 03/01/18 11:15 03/03/18 11:09 Lansoprazole (Prevacid) 30 mg ACBREAKFAST NG 02/12/18 06:30 03/14/18 06:29 03/01/18 06:27 Lorazepam (Ativan 2mg/ml 1ml) 0.5 mg Q3H PRN IV For Anxiety 02/26/18 04:45 03/05/18 04:44 03/01/18 03:30 Meropenem 1 gm/ Sodium Chloride 55 ml @ 110 mls/hr Q8H IVPB 02/28/18 18:00 03/05/18 17:59 03/01/18 09:23 Metoclopramide HCl (Reglan) 10 mg Q6H PRN IVP Nausea & Vomiting 02/28/18 13:46 03/30/18 13:45 02/28/18 13:56 Morphine Sulfate (Morphine Sulfate) 1 mg Q4HR PRN IVP Mild Pain (Pain Scale 1-3) 02/26/18 15:45 03/03/18 15:44 03/01/18 07:53 Morphine Sulfate (Morphine Sulfate) 2 mg Q4HR PRN IVP Moderate Pain (Pain Scale 4-6) 02/26/18 15:45 03/03/18 15:44 02/27/18 22:57 Morphine Sulfate (Morphine Sulfate) 4 mg Q4H PRN IVP Severe Pain (Pain Scale 7-10) 02/26/18 15:45 03/03/18 15:44 02/26/18 15:52 Non-Formulary Medication (Non-Formulary Med) 1 ea DAILY TOPIC 02/26/18 09:00 03/28/18 08:59 UNV Ondansetron HCl (Zofran) 4 mg Q4H PRN IVP Nausea & Vomiting 02/13/18 10:30 03/15/18 10:29 02/28/18 12:50 Polyethylene Glycol (Miralax) 17 gm DAILYPRN PRN ORAL Constipation 02/20/18 20:00 03/22/18 19:59 Potassium Chloride (K-Dur) 20 meq TWICE A DAY NGT 02/16/18 10:00 03/18/18 09:59 03/01/18 11:43 Celia Capone MD Mar 01, 2018 11:53
--- NOTE | 2018-03-01 14:16 | Pulmonology Progress Note ---
Assessment/Plan Assessment/Plan 1. Acute respiratory failure. 2. Extensive pneumonia, left lung, due to Pseudomonas, resolving 3. Paratracheal mass. 4. Tracheomalacia with tracheal stent, removed. S/p trach 5. Parkinson's disease. 6. Esophageal dysmotility, PEG 7. Morbid obesity with obesity hypoventilation syndrome. 8. Hypertension w LVH 9. Nephrolithiasis and renal mass. 10. History of breast cancer. tolerated trach PEG today WBC normal disc w RN disc subacute or LTAC placement with case work aide, RN, patient Subjective ROS Limited/Unobtainable: Yes Constitutional: Denies: fever Allergies: Coded Allergies: No Known Allergies (Unverified , 01/11/14) Objective Last 24 Hour Vital Signs Date Time Temp Pulse Resp B/P (MAP) Pulse Ox O2 Delivery O2 Flow Rate FiO2 03/01/18 12:33 96 16 30 03/01/18 12:00 99 03/01/18 12:00 96 16 115/61 (79) 98 03/01/18 12:00 30 03/01/18 12:00 Mechanical Ventilator 03/01/18 11:50 100 16 96 Mechanical Ventilator 30 03/01/18 11:36 95 16 97 Mechanical Ventilator 30 03/01/18 11:20 207.7 64 20 97 03/01/18 11:00 101 16 127/82 (97) 98 03/01/18 10:45 95 16 30 03/01/18 10:00 95 16 127/77 (94) 98 03/01/18 09:00 98 16 126/68 (87) 98 03/01/18 09:00 100 17 30 03/01/18 08:23 98.6 03/01/18 08:00 98.7 99 16 144/105 (118) 98 98.7 03/01/18 08:00 30 03/01/18 08:00 Mechanical Ventilator 03/01/18 08:00 107 03/01/18 07:53 98.6 03/01/18 07:25 100 17 99 Mechanical Ventilator 30 03/01/18 07:19 91 16 97 Mechanical Ventilator 30 03/01/18 07:00 95 16 111/69 (83) 98 03/01/18 07:00 91 16 30 03/01/18 06:00 94 16 132/74 (93) 98 03/01/18 05:00 92 16 30 8/6/18 05:00 99 16 115/66 (82) 96 03/01/18 04:00 98.6 92 16 107/57 (74) 98 98.6 03/01/18 04:00 Mechanical Ventilator 03/01/18 04:00 30 03/01/18 03:28 92 03/01/18 03:20 96 16 99 Mechanical Ventilator 30 03/01/18 03:07 94 16 100 Mechanical Ventilator 30 03/01/18 03:06 94 16 30 03/01/18 03:00 94 16 106/75 (85) 96 03/01/18 02:00 95 16 115/58 (77) 97 03/01/18 01:15 96 16 30 03/01/18 01:00 96 16 125/63 (83) 96 03/01/18 00:26 99 03/01/18 00:00 Mechanical Ventilator 03/01/18 00:00 98.6 98 18 109/70 (83) 97 98.6 03/01/18 00:00 30 02/28/18 23:27 105 19 100 Mechanical Ventilator 30 02/28/18 23:12 90 16 97 Mechanical Ventilator 30 02/28/18 23:11 90 16 30 02/28/18 23:00 94 17 98/64 (75) 97 02/28/18 22:00 97 17 93/53 (66) 97 02/28/18 21:00 97 19 119/71 (87) 100 02/28/18 20:55 98 16 30 02/28/18 20:00 Mechanical Ventilator 02/28/18 20:00 30 02/28/18 20:00 98.5 97 19 140/85 (103) 100 98.5 02/28/18 19:31 97 02/28/18 19:27 110 20 100 Mechanical Ventilator 30 02/28/18 19:12 105 23 97 Mechanical Ventilator 30 02/28/18 19:11 105 23 30 02/28/18 19:00 97 19 102/80 (87) 100 02/28/18 18:00 96 19 139/95 (110) 99 02/28/18 17:00 98.5 98 21 118/77 (91) 99 98.5 02/28/18 16:55 96 16 30 02/28/18 16:00 95 02/28/18 16:00 99 17 112/65 (81) 99 02/28/18 16:00 Mechanical Ventilator 02/28/18 16:00 30 02/28/18 15:21 95 16 99 Mechanical Ventilator 30 02/28/18 15:14 99 16 99 Mechanical Ventilator 30 02/28/18 15:14 99 16 30 02/28/18 15:00 103 20 122/68 (86) 100 Intake and Output 02/28/18 03/01/18 19:00 07:00 Intake Total 1325.000 ml 1025 ml Output Total 2430 ml 1250 ml Balance -1105.000 ml -225 ml IV Total 1035.000 ml 955 ml Tube Feeding 240 ml 70 ml Other 50 ml Output Urine Total 2330 ml 1250 ml Stool Total 100 ml Objective morbidly obese General Appearance: no acute distress HEENT: atraumatic Respiratory/Chest: lungs clear Cardiovascular: normal rate Microbiology Date/Time Source Procedure Growth Status 02/26/18 14:17 Throat Gram Stain - Final Complete 02/26/18 14:17 Aerobic Culture - Final Pseudomonas Aeruginosa Complete 02/26/18 14:17 Trachea Swab Anaerobic Culture - Preliminary NO GROWTH AFTER 48 HOURS Resulted Laboratory Tests 03/01/18 05:03: White Blood Count 5.0, Red Blood Count 3.40L, Hemoglobin 8.6L, Hematocrit 27.8L , Mean Corpuscular Volume 82, Mean Corpuscular Hemoglobin 25.4L, Mean Corpuscular Hemoglobin Concent 31.0L, Red Cell Distribution Width 14.8, Platelet Count 399, Mean Platelet Volume 5.3L, Neutrophils (%) (Auto) 54.2, Lymphocytes (%) (Auto) 25.9, Monocytes (%) (Auto) 11.0H, Eosinophils (%) (Auto) 7.4H, Basophils (%) (Auto) 1.5, Prothrombin Time 11.4, Prothromb Time International Ratio 1.1, Activated Partial Thromboplast Time 30, Sodium Level 137, Potassium Level 4.4, Chloride Level 104, Carbon Dioxide Level 27, Anion Gap 6, Blood Urea Nitrogen 14, Creatinine 1.2, Estimat Glomerular Filtration Rate , Glucose Level 120H, Calcium Level 9.7 Current Medications Medications (Trade) Dose Ordered Sig/Roro Route PRN Reason Start Time Stop Time Status Last Admin Dose Admin Acetaminophen (Tylenol) 650 mg Q4H PRN NG Fever/Headache/Mild Pain 02/12/18 02:45 03/14/18 02:44 02/28/18 21:15 Acetaminophen/ Hydrocodone Bitart ([place] 5/325) 1 tab Q4H PRN ORAL Moderate Pain (Pain Scale 4-6) 02/26/18 16:30 03/05/18 16:29 Acetylcysteine (Mucomyst) 200 mg Q4HRT HHN 02/21/18 23:00 03/23/18 22:59 03/01/18 11:36 Albuterol/ Ipratropium (Albuterol/ Ipratropium) 3 ml Q4HRT HHN 02/26/18 23:00 03/03/18 22:59 03/01/18 11:36 Barium Sulfate (Readi-Cat 2) 450 ml NOW PRN ORAL Radiology Procedure 03/01/18 11:15 03/03/18 11:09 Bisacodyl (Dulcolax) 10 mg DAILYPRN PRN RECTAL Constipation 02/20/18 20:15 03/16/18 19:14 Carbidopa/Levodopa (Sinemet 25/100) 1.5 tab THREE TIMES A DAY ORAL 02/25/18 18:00 03/14/18 12:59 03/01/18 11:43 Cinacalcet (Sensipar) 30 mg DAILY ORAL 02/13/18 09:00 03/15/18 08:59 03/01/18 11:43 Clonidine HCl (Catapres Tab) 0.1 mg Q4H PRN ORAL For SBP>170 02/21/18 09:30 03/23/18 09:29 02/26/18 03:31 Dextrose/Sodium Chloride 1,000 ml @ 75 mls/hr [id number] IV 02/28/18 18:30 03/30/18 18:29 03/01/18 07:53 Diphenhydramine HCl (Benadryl) 25 mg Q4H PRN ORAL Itching 02/27/18 14:15 03/29/18 14:14 Fluconazole/ Sodium Chloride 100 ml @ 100 mls/hr Q24H IV 02/27/18 12:00 03/06/18 11:59 03/01/18 11:44 Insulin Aspart (NovoLOG) 4 units NOVOTIAC SUBQ 02/12/18 11:50 03/14/18 11:49 03/01/18 11:51 Iopamidol (Isovue-300 100ml) 100 ml NOW PRN INJ Radiology Procedure 03/01/18 11:15 03/03/18 11:09 Lansoprazole (Prevacid) 30 mg ACBREAKFAST NG 02/12/18 06:30 03/14/18 06:29 03/01/18 06:27 Lorazepam (Ativan 2mg/ml 1ml) 0.5 mg Q3H PRN IV For Anxiety 02/26/18 04:45 03/05/18 04:44 03/01/18 13:28 Meropenem 1 gm/ Sodium Chloride 55 ml @ 110 mls/hr Q8H IVPB 02/28/18 18:00 03/05/18 17:59 03/01/18 09:23 Metoclopramide HCl (Reglan) 10 mg Q6H PRN IVP Nausea & Vomiting 02/28/18 13:46 03/30/18 13:45 02/28/18 13:56 Morphine Sulfate (Morphine Sulfate) 1 mg Q4HR PRN IVP Mild Pain (Pain Scale 1-3) 02/26/18 15:45 03/03/18 15:44 03/01/18 07:53 Morphine Sulfate (Morphine Sulfate) 2 mg Q4HR PRN IVP Moderate Pain (Pain Scale 4-6) 02/26/18 15:45 03/03/18 15:44 02/27/18 22:57 Morphine Sulfate (Morphine Sulfate) 4 mg Q4H PRN IVP Severe Pain (Pain Scale 7-10) 02/26/18 15:45 03/03/18 15:44 02/26/18 15:52 Non-Formulary Medication (Non-Formulary Med) 1 ea DAILY TOPIC 02/26/18 09:00 03/28/18 08:59 UNV Ondansetron HCl (Zofran) 4 mg Q4H PRN IVP Nausea & Vomiting 02/13/18 10:30 03/15/18 10:29 02/28/18 12:50 Polyethylene Glycol (Miralax) 17 gm DAILYPRN PRN ORAL Constipation 02/20/18 20:00 03/22/18 19:59 Potassium Chloride (K-Dur) 20 meq TWICE A DAY NGT 02/16/18 10:00 03/18/18 09:59 03/01/18 11:43 Gómez Matos MD Mar 01, 2018 14:16
--- NOTE | 2018-03-01 15:05 | Diagnostic Imaging Report ---
Clinical Indication: Abdominal pain, sepsis, leukocytosis, evaluation of gastrostomy placement Technique: Patient ingested enteric contrast IV administration nonionic contrast. Multiphasic spiral acquisitions obtained through the abdomen. Multiplanar reconstructions were generated. Total dose length product 995.17 mGycm. CTDIvol(s) 19.71 mGy. Dose reduction achieved using automated exposure control Comparison: none Findings: There is a gastrostomy in place. The balloon is within the gastric body. The shaft does not traverse any vital structures. The anterior gastric wall is not completely apposed to the anterior abdominal wall, but this is due to the presence of intervening fat. No surrounding fluid collection or significant inflammation. A few small gas bubbles are seen adjacent to the shaft. There is equivocal wall thickening of the gastric antrum and duodenum, but this is probably an artifact of under distention. Included small bowel is slightly prominent, fluid-filled, without evidence of wall thickening. The included portions of the colon demonstrate occasional small diverticula. No free or loculated intraperitoneal gas or fluid collections are demonstrated. The distal esophagus is unremarkable. There is broad-based diastasis of the rectus abdominis tendon. The gallbladder demonstrates mural calcifications, explaining the findings demonstrated on recent abdominal radiograph. No definite gallstones. The liver, bile ducts are unremarkable. The pancreas is atrophic. The spleen and adrenals are unremarkable. The left kidney demonstrates a 6 mm interpolar region calyceal calcification. It demonstrates a 6 cm upper pole cyst, as well as smaller cysts and smaller subcentimeter low-attenuation lesions which are too small to characterize. The right kidney is markedly atrophic, demonstrates parenchymal and calyceal calculi, multiple cysts, and multiple subcentimeter low-attenuation lesions which are too small to characterize. No retroperitoneal or mesenteric mass or adenopathy. The included lung bases demonstrate consolidation and atelectasis of much of the posterior visualized lower lobes. The highest cut demonstrates the edge of a tracheal stent abutting the jennifer. The bones demonstrate degenerative spondylosis changes. Impression: Evidence of satisfactory gastrostomy placement, without evidence of complication. Satisfactory position, no evidence of adjacent fluid collection, and no evidence of traversal of intervening vital structures Mural gallbladder calcifications, consistent with so-called porcelain gallbladder 6 mm nonobstructive left renal calyceal calculus Atrophic right kidney with multiple cysts and calcifications Subcentimeter low-attenuation renal lesions bilaterally, too small to characterize, most likely benign simple cysts. No further follow-up necessary Bilateral lower lobe pulmonary parenchymal consolidation and atelectasis, fairly extensive Edge of tracheal stent seen on prior chest radiographs is seen on the highest cut Other findings as noted, including colonic diverticulosis, broad-based diastasis of the rectus abdominis tendon, degenerative spondylosis changes The CT scanner at [facility] is accredited by the [employer] and the scans are performed using protocols designed to limit radiation exposure to as low as reasonably achievable to attain images of sufficient resolution adequate for diagnostic evaluation.
--- NOTE | 2018-03-01 22:28 | Endoscopy Procedure Note ---
Endoscopy Procedure Note General Indication for Procedure: dysphagia Procedures Performed: EGD, PEG Operative Findings/Diagnosis: PEG placed Specimen: yes Pt Tolerated Procedure Well: Yes Estimated Blood Loss: none Anesthesia Anesthesiologist: see report Anesthesia: MAC, moderate sedation Medications Medication Given: see anesthesia record Inserted Devices Implant(s) used?: No GI Core Measures 50 yrs or older w/o bx or poly: Not Applicable 10yrs. F/U not recommended: Not Applicable If not recommended, why?: Nell Gabriel MD Mar 01, 2018 22:27
--- NOTE | 2018-03-01 22:29 | Brief Operative Note ---
Immediate Post Operative Note Operative Note Chief Complaint: dysphagia. anemia Pre-op Diagnosis: dysphagia, anemia Procedure: GED, BX, PEG Post-op Diagnosis: PEG Surgeon: ady Anesthesiologist: see report Anesthesia: MAC Specimen: yes Complications: none Condition: stable Fluids: recorded Estimated Blood Loss: none Drains: none Implant(s) used?: No Nell Gabriel MD Mar 01, 2018 22:29
[2018-03-02] VITALS (19 sets, daily range): BP systolic 99–145; BP diastolic 55–94
[2018-03-02] MEDS: Meropenem 1 GM in NS 55 ML IVPB SCH ×2 (02:21→09:56)
[2018-03-02] MEDS: Albuterol/Ipratropium 3ml neb HHN SCH ×5 (03:13→19:43)
[2018-03-02] MEDS: Acetylcysteine 20% Soln 4ml HHN SCH ×5 (03:13→19:44)
[2018-03-02] MEDS: Morphine Sulfate 2mg/ml Inj(IV/IM USE ONLY) IVP PRN ×2 (03:50→20:15)
--- NOTE | 2018-03-02 04:45 | Procedure Note ---
DATE OF PROCEDURE: 03/01/2018 PROCEDURE: Upper gastrointestinal endoscopy with biopsy as well as gastrostomy tube placement. SURGEON: Nell Gabriel M.D. ANESTHESIA: Please see the separate anesthesiologist notes for details. PRE-ENDOSCOPIC DIAGNOSES: Anemia and dysphagia. POST-ENDOSCOPIC DIAGNOSES: 1. Mild duodenitis and gastritis, status post biopsy. 2. Status post gastrostomy tube placement. DESCRIPTION OF PROCEDURE: The procedure, its risks, indications, alternatives, and possible complications were explained to both the patient and her son and informed consent was obtained. The patient was then sedated in the left lateral decubitus position and a diagnostic upper endoscope was introduced through the oropharynx and advanced to the duodenum. Mild duodenitis and gastritis were identified and these were biopsied and the biopsies were sent to pathology for review. Thereafter, location for placement of gastrostomy tube was identified by palpation and transillumination techniques. The outside skin was sterilely prepared, anesthetized, and incised and a trocar needle was used to place the gastrostomy tube using a standard pull technique. The position was verified endoscopically. Outside marking was 6 cm. The endoscope was removed and the patient was sent to recovery in good condition. COMPLICATIONS: None. RECOMMENDATIONS: 1. Observe overnight. 2. Begin tube feedings tomorrow. 3. Check CT scan of the abdomen given a 6 cm marking (although this may be due to some ). Nell Gabriel M.D. DR: BEVERLY JOB#: [id number] CC:
[2018-03-02] MEDS: NovoLOG Insulin Flexpen SUBQ SCH ×3 (06:16→16:00)
--- NOTE | 2018-03-02 09:13 | 48 Hour Post Anesthesia Eval ---
Post Anesthesia Evaluation Procedure: EGD PEG tube placement Date of Evaluation: Mar 02, 2018 Time of Evaluation: 09:12 Blood Pressure Systolic: 114 0: 62 Pulse Rate: 78 Respiratory Rate: 18 Temperature (Fahrenheit): 97.5 O2 Sat by Pulse Oximetry: 98 Airway: other - tracheostomy Nausea: No Vomiting: No Pain Intensity: 2 Hydration Status: adequate Cardiopulmonary Status: stable Mental Status/LOC: patient returned to baseline Follow-up Care/Observations: n/a Post-Anesthesia Complications: none Follow-up care needed: N/A Raphael Burgess MD Mar 02, 2018 09:13
[2018-03-02] MEDS: Sensipar 30mg Tab ORAL SCH (09:56)
[2018-03-02] MEDS: Levodopa/Carbidopa 25/100 tab ORAL SCH ×2 (09:57→12:15)
[2018-03-02] MEDS: D5 1/2NS 1,000 ML IV SCH (10:30)
--- NOTE | 2018-03-02 10:58 | Pulmonology Progress Note ---
Assessment/Plan Assessment/Plan 1. Acute respiratory failure, trach 2. 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 S/p trach 5. Parkinson's disease. 6. Esophageal dysmotility, PEG 7. Morbid obesity with obesity hypoventilation syndrome. 8. Hypertension w LVH 9. Nephrolithiasis and renal mass. 10. History of breast cancer. tolerating weaning today adjust tube feeds per GI disc w RN dc to subacute or LTAC placement possible tomorrow if accepted Subjective ROS Limited/Unobtainable: Yes Allergies: Coded Allergies: No Known Allergies (Unverified , 01/11/14) Objective Last 24 Hour Vital Signs Date Time Temp Pulse Resp B/P (MAP) Pulse Ox O2 Delivery O2 Flow Rate FiO2 03/02/18 10:44 96 03/02/18 10:44 80 14 30 03/02/18 10:43 80 16 30 03/02/18 09:13 207.5 78 18 98 03/02/18 08:58 84 16 30 03/02/18 08:00 Mechanical Ventilator 03/02/18 08:00 83 03/02/18 08:00 30 03/02/18 07:16 85 16 99 Mechanical Ventilator 30 03/02/18 07:01 85 16 98 Mechanical Ventilator 30 03/02/18 07:00 98.0 87 18 99/55 (70) 99 98.0 03/02/18 06:59 85 16 30 03/02/18 06:00 90 18 139/72 (94) 99 03/02/18 05:22 93 19 30 03/02/18 05:00 97 19 137/84 (101) 96 03/02/18 04:00 Mechanical Ventilator 03/02/18 04:00 98.0 95 17 127/72 (90) 98 98.0 03/02/18 04:00 95 03/02/18 04:00 30 03/02/18 03:50 97.4 03/02/18 03:28 87 16 99 Mechanical Ventilator 30 03/02/18 03:12 89 16 97 Mechanical Ventilator 30 03/02/18 03:11 89 16 30 03/02/18 03:00 90 18 120/69 (86) 98 03/02/18 02:00 91 16 123/72 (89) 96 03/02/18 01:00 90 17 135/73 (93) 97 18 00:55 90 16 30 03/02/18 00:00 30 818 00:00 91 03/02/18 00:00 97.9 92 18 133/63 (86) 96 97.9 03/02/18 00:00 Mechanical Ventilator 03/01/18 23:30 90 16 100 Mechanical Ventilator 30 03/01/18 23:13 91 21 98 Mechanical Ventilator 30 03/01/18 23:12 93 21 30 03/01/18 23:00 91 17 118/64 (82) 99 03/01/18 22:00 91 17 147/79 (101) 97 03/01/18 21:24 95 25 30 03/01/18 21:00 101 21 156/86 (109) 98 03/01/18 20:00 94 03/01/18 20:00 98.4 96 23 153/85 (107) 98 98.4 03/01/18 20:00 30 03/01/18 20:00 Mechanical Ventilator 03/01/18 19:30 89 16 110/64 (79) 98 03/01/18 19:25 98 18 100 Mechanical Ventilator 30 03/01/18 19:15 96 16 97 Mechanical Ventilator 30 03/01/18 19:13 96 16 30 03/01/18 18:48 98.1 03/01/18 18:18 98.1 03/01/18 18:00 97 16 111/71 (84) 98 03/01/18 17:00 104 16 30 03/01/18 17:00 98.7 98 16 159/93 (115) 98 98.7 03/01/18 16:00 30 18 16:00 96 03/01/18 16:00 Mechanical Ventilator 03/01/18 16:00 98 16 136/78 (97) 98 03/01/18 15:41 94 16 100 Mechanical Ventilator 30 03/01/18 15:31 95 16 99 Mechanical Ventilator 30 18 15:28 96 16 30 818 15:00 94 16 127/77 (94) 98 818 14:00 102 16 146/85 (105) 98 03/01/18 13:00 98.1 96 16 108/56 (73) 98 98.1 03/01/18 12:33 96 16 30 03/01/18 12:00 99 03/01/18 12:00 96 16 115/61 (79) 98 03/01/18 12:00 30 03/01/18 12:00 Mechanical Ventilator 03/01/18 11:50 100 16 96 Mechanical Ventilator 30 03/01/18 11:36 95 16 97 Mechanical Ventilator 30 03/01/18 11:20 207.7 64 20 97 03/01/18 11:00 101 16 127/82 (97) 98 Intake and Output 03/01/18 03/02/18 19:00 07:00 Intake Total 1110 ml 880 ml Output Total 1330 ml 1240 ml Balance -220 ml -360 ml IV Total 1110 ml 880 ml Output Urine Total 1280 ml 1240 ml Stool Total 50 ml # Bowel Movements 80 Objective morbidly obese, PEG, trach General Appearance: no acute distress HEENT: atraumatic Respiratory/Chest: rhonchi Cardiovascular: normal rate Abdomen: soft, non tender Current Medications Medications (Trade) Dose Ordered Sig/Roro Route PRN Reason Start Time Stop Time Status Last Admin Dose Admin Acetaminophen (Tylenol) 650 mg Q4H PRN NG Fever/Headache/Mild Pain 02/12/18 02:45 03/14/18 02:44 02/28/18 21:15 Acetaminophen/ Hydrocodone Bitart ([place] 5/325) 1 tab Q4H PRN ORAL Moderate Pain (Pain Scale 4-6) 02/26/18 16:30 03/05/18 16:29 Acetylcysteine (Mucomyst) 200 mg Q4HRT N 02/21/18 23:00 03/23/18 22:59 03/02/18 07:01 Albuterol/ Ipratropium (Albuterol/ Ipratropium) 3 ml Q4HRT HHN 02/26/18 23:00 03/03/18 22:59 03/02/18 07:01 Barium Sulfate (Readi-Cat 2) 450 ml NOW PRN ORAL Radiology Procedure 03/01/18 11:15 03/03/18 11:09 Bisacodyl (Dulcolax) 10 mg DAILYPRN PRN RECTAL Constipation 02/20/18 20:15 03/16/18 19:14 Carbidopa/Levodopa (Sinemet 25/100) 1.5 tab THREE TIMES A DAY ORAL 02/25/18 18:00 03/14/18 12:59 03/02/18 09:57 Cinacalcet (Sensipar) 30 mg DAILY ORAL 02/13/18 09:00 03/15/18 08:59 03/02/18 09:56 Clonidine HCl (Catapres Tab) 0.1 mg Q4H PRN ORAL For SBP>170 02/21/18 09:30 03/23/18 09:29 02/26/18 03:31 Dextrose/Sodium Chloride 1,000 ml @ 75 mls/hr [id number] IV 02/28/18 18:30 03/30/18 18:29 03/01/18 20:02 Diphenhydramine HCl (Benadryl) 25 mg Q4H PRN ORAL Itching 02/27/18 14:15 03/29/18 14:14 03/02/18 05:13 Fluconazole/ Sodium Chloride 100 ml @ 100 mls/hr Q24H IV 02/27/18 12:00 03/06/18 11:59 03/01/18 11:44 Insulin Aspart (NovoLOG) 4 units NOVOTIAC SUBQ 02/12/18 11:50 03/14/18 11:49 03/02/18 06:16 Iopamidol (Isovue-300 100ml) 100 ml NOW PRN INJ Radiology Procedure 03/01/18 11:15 03/03/18 11:09 Lansoprazole (Prevacid) 30 mg ACBREAKFAST NG 02/12/18 06:30 03/14/18 06:29 03/02/18 06:14 Lorazepam (Ativan 2mg/ml 1ml) 0.5 mg Q3H PRN IV For Anxiety 02/26/18 04:45 03/05/18 04:44 03/01/18 13:28 Meropenem 1 gm/ Sodium Chloride 55 ml @ 110 mls/hr Q8H IVPB 02/28/18 18:00 03/05/18 17:59 03/02/18 09:56 Metoclopramide HCl (Reglan) 10 mg Q6H PRN IVP Nausea & Vomiting 02/28/18 13:46 03/30/18 13:45 02/28/18 13:56 Morphine Sulfate (Morphine Sulfate) 1 mg Q4HR PRN IVP Mild Pain (Pain Scale 1-3) 02/26/18 15:45 03/03/18 15:44 03/01/18 18:18 Morphine Sulfate (Morphine Sulfate) 2 mg Q4HR PRN IVP Moderate Pain (Pain Scale 4-6) 02/26/18 15:45 03/03/18 15:44 03/02/18 03:50 Morphine Sulfate (Morphine Sulfate) 4 mg Q4H PRN IVP Severe Pain (Pain Scale 7-10) 02/26/18 15:45 03/03/18 15:44 02/26/18 15:52 Ondansetron HCl (Zofran) 4 mg Q4H PRN IVP Nausea & Vomiting 02/13/18 10:30 03/15/18 10:29 03/02/18 05:13 Polyethylene Glycol (Miralax) 17 gm DAILYPRN PRN ORAL Constipation 02/20/18 20:00 03/22/18 19:59 Potassium Chloride (K-Dur) 20 meq TWICE A DAY NGT 02/16/18 10:00 03/18/18 09:59 03/02/18 09:56 Gómez Matos MD Mar 02, 2018 10:58
--- NOTE | 2018-03-02 11:43 | General Progress Note ---
Progress Note Progress Note Surgery: no acute events. improved. trach clean and functional. site c/d/i. dressings in place. on vent. CT reviewed: The included lung bases demonstrate consolidation and atelectasis of much of the posterior visualized lower lobes. The highest cut demonstrates the edge of a tracheal stent abutting the jennifer. likely stacked stents from prior procedure. one removed as it was not well positioned and with foreign body effect. the other must be well incorporated as it was note visualized during bronchoscopy. no further surgical intervention necessary at this time. recovering dressings prn keep site clean can remove sutures in 1-2 weeks wean as tolerated thank you Chuck Villeda Mar 02, 2018 11:43
--- NOTE | 2018-03-02 12:33 | Diagnostic Imaging Report ---
Indication: Dyspnea Technique: Portable AP view of the chest Comparison: 02/28/2018 Findings: Heart size and mediastinal contours stable. Interval removal of the NG tube. Tracheostomy tube unchanged. Stent in the mediastinum is unchanged, possibly tracheal stent. Slight decrease in right basilar opacities. Retrocardiac opacities unchanged. Small left pleural effusion not excluded. No pneumothorax. Osseous structures stable. IMPRESSION: * Interval removal of enteric tube * Tracheostomy tube unchanged. Unchanged mediastinal stent, likely tracheal stent. * Persistent but slightly decreased right base opacities. * Left Basilar/retrocardiac opacities unchanged. Small left pleural effusion not excluded.
[2018-03-02] MEDS ORDERED: D5 1/2NS 1000ml IV ONE (14:40)
[2018-03-02] MEDS ORDERED: Tubing IV Secondary IV ONE (14:40)
[2018-03-02] MEDS ORDERED: Sterile Water Irrig 1000ml IRRIG ONE (14:40)
[2018-03-02] MEDS ORDERED: NS 275ml ONE (14:40)
--- NOTE | 2018-03-02 16:19 | Infectious Diseases Prog Note ---
Assessment/Plan Assessment/Plan ASSESSMENT AND PLAN: 1. sepsis, leukocytosis, pseudomonas pna, e.coli uti, fungal uti, fungemia risk , lgt, diarrhea, c.diff. negative, respiratory failure, s/p trach - leukocytosis resolved, chest x-ray stable - cefepime and flagyl - monitor labs and chest x-ray 2. Hypertension. Blood pressure treatment per primary, Dr. Matos. 3. Respiratory failure, on vent, weaning per Dr. Matos. 4. Rectal tube and diarrhea. 5. Mistry. 6. Clostridium difficile negative. 7. Parkinson disease. 8. Dysphagia. 9. Aspiration risk. 10. 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 11. History of anemia. 12. Nephrolithiasis. 13. Meningioma. 14. History of breast cancer. 15. History of lumpectomy. 16. Obesity. 17. Obesity hypoventilation syndrome. 18. No known allergies. 19. Social history negative. 20. MAR was noted. 21. Case discussed with RN. 22. Family history noncontributory. 23. Continue treatments per primary consultants. 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 Subjective Constitutional: Reports: other - + trach and vent, no distress, more alert ; Denies: fever HEENT: Denies: congestion Respiratory: Denies: shortness of breath Cardiovascular: Denies: chest pain Gastrointestinal/Abdominal: Reports: diarrhea, other - + rectal tube; Denies: nausea, vomiting Genitourinary: Reports: other - + mistry Neurologic: Reports: other - more alert Psychiatric: Denies: depression Skin: Denies: rash Hematologic: Denies: bleeding Musculoskeletal: Denies: pain Allergies: Coded Allergies: No Known Allergies (Unverified , 01/11/14) Objective Vital Signs Last 24 Hour Vital Signs Date Time Temp Pulse Resp B/P (MAP) Pulse Ox O2 Delivery O2 Flow Rate FiO2 03/02/18 15:24 94 24 99 Mechanical Ventilator 30 03/02/18 15:04 95 23 100 Mechanical Ventilator 30 03/02/18 15:00 101 18 145/70 (95) 100 03/02/18 14:59 100 26 30 03/02/18 14:00 102 18 144/73 (96) 100 03/02/18 13:10 93 22 30 03/02/18 13:00 98 18 101/59 (73) 100 03/02/18 12:01 108 18 140/73 (95) 100 03/02/18 12:01 108 03/02/18 12:00 Mechanical Ventilator 03/02/18 11:56 108 28 30 03/02/18 11:36 109 24 30 03/02/18 11:30 85 22 99 Mechanical Ventilator 30 03/02/18 11:08 85 18 96 Mechanical Ventilator 30 03/02/18 11:04 30 03/02/18 11:00 83 18 133/68 (89) 99 03/02/18 10:53 87 18 30 03/02/18 10:44 96 03/02/18 10:44 80 14 30 03/02/18 10:43 80 16 30 03/02/18 10:00 84 18 141/71 (94) 99 03/02/18 09:13 207.5 78 18 98 03/02/18 09:00 84 18 118/71 (87) 99 03/02/18 08:58 84 16 30 03/02/18 08:00 Mechanical Ventilator 03/02/18 08:00 86 18 123/67 (85) 99 03/02/18 08:00 83 03/02/18 08:00 30 03/02/18 07:16 85 16 99 Mechanical Ventilator 30 03/02/18 07:01 85 16 98 Mechanical Ventilator 30 03/02/18 07:00 98.0 87 18 99/55 (70) 99 98.0 03/02/18 06:59 85 16 30 03/02/18 06:00 90 18 139/72 (94) 99 03/02/18 05:22 93 19 30 03/02/18 05:00 97 19 137/84 (101) 96 03/02/18 04:00 Mechanical Ventilator 03/02/18 04:00 98.0 95 17 127/72 (90) 98 98.0 03/02/18 04:00 95 03/02/18 04:00 30 03/02/18 03:50 97.4 03/02/18 03:28 87 16 99 Mechanical Ventilator 30 03/02/18 03:12 89 16 97 Mechanical Ventilator 30 03/02/18 03:11 89 16 30 03/02/18 03:00 90 18 120/69 (86) 98 03/02/18 02:00 91 16 123/72 (89) 96 03/02/18 01:00 90 17 135/73 (93) 97 03/02/18 00:55 90 16 30 03/02/18 00:00 30 03/02/18 00:00 91 03/02/18 00:00 97.9 92 18 133/63 (86) 96 97.9 03/02/18 00:00 Mechanical Ventilator 03/01/18 23:30 90 16 100 Mechanical Ventilator 30 03/01/18 23:13 91 21 98 Mechanical Ventilator 30 03/01/18 23:12 93 21 30 03/01/18 23:00 91 17 118/64 (82) 99 03/01/18 22:00 91 17 147/79 (101) 97 03/01/18 21:24 95 25 30 03/01/18 21:00 101 21 156/86 (109) 98 03/01/18 20:00 94 03/01/18 20:00 98.4 96 23 153/85 (107) 98 98.4 03/01/18 20:00 30 03/01/18 20:00 Mechanical Ventilator 03/01/18 19:30 89 16 110/64 (79) 98 03/01/18 19:25 98 18 100 Mechanical Ventilator 30 03/01/18 19:15 96 16 97 Mechanical Ventilator 30 03/01/18 19:13 96 16 30 03/01/18 18:48 98.1 03/01/18 18:18 98.1 03/01/18 18:00 97 16 111/71 (84) 98 03/01/18 17:00 104 16 30 03/01/18 17:00 98.7 98 16 159/93 (115) 98 98.7 Height (Feet): 5 Height (Inches): 6.00 Weight (Pounds): 267 General Appearance: no acute distress HEENT: normocephalic, atraumatic, anicteric, mucous membranes moist, EOMI, status post trach Respiratory/Chest: crackles/rales, rhonchi - bilaterally Cardiovascular: normal rate, regular rhythm, no gallop/murmur Abdomen: normal bowel sounds, soft, non tender, no organomegaly, non distended , other - + rectal tube Genitourinary: other - no mistry Extremities: no cyanosis Skin: no rash 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 There is increased consolidation of the left lung base. There is generalized mild interstitial congestion again demonstrated. There is probably some pleural fluid on the left. The heart is borderline enlarged. The aorta is tortuous. Again demonstrated are endotracheal and nasogastric tube and a mediastinal stent. Impression: Worsening bilateral basilar infiltrates versus edema, over 2 days Chest x-ray - 02/28 - INDICATION: Infection COMPARISON: Chest x-ray dated 02/26/18 FINDINGS: Single frontal view demonstrates prominent heart size. Nasogastric tube below diaphragm. Tracheostomy. Aortic stent. Mild bilateral lower lobe opacities, right greater than left. No pleural effusions. The visualized osseous structures are within normal limits. IMPRESSION: No significant change. Tubes and lines as outlined above. Mild bilateral lower lobe opacity, right greater than left. Microbiology Date/Time Source Procedure Growth Status 02/26/18 05:45 Blood Blood Culture - Preliminary NO GROWTH AFTER 72 HOURS Resulted 02/26/18 14:17 Throat Gram Stain - Final Complete 02/26/18 14:17 Aerobic Culture - Final Pseudomonas Aeruginosa Complete 02/21/18 18:30 Stool Clostridium difficile Toxin Assay - Final Complete 02/26/18 10:00 Indwelling Cath Urine Culture - Final Lorena Albicans Complete 02/26/18 14:17 Trachea Swab Anaerobic Culture - Final NO ANAEROBES ISOLATED Complete Labs Test 02/27/18 17:45 03/01/18 05:03 Vancomycin Level Trough 13.8 ug/mL (5.0-12.0) White Blood Count 5.0 K/UL (4.8-10.8) Red Blood Count 3.40 M/UL (4.20-5.40) Hemoglobin 8.6 G/DL (12.0-16.0) Hematocrit 27.8 % (37.0-47.0) Mean Corpuscular Volume 82 FL (80-99) Mean Corpuscular Hemoglobin 25.4 PG (27.0-31.0) Mean Corpuscular Hemoglobin Concent 31.0 G/DL (32.0-36.0) Red Cell Distribution Width 14.8 % (11.6-14.8) Platelet Count 399 K/UL (150-450) Mean Platelet Volume 5.3 FL (6.5-10.1) Neutrophils (%) (Auto) 54.2 % (45.0-75.0) Lymphocytes (%) (Auto) 25.9 % (20.0-45.0) Monocytes (%) (Auto) 11.0 % (1.0-10.0) Eosinophils (%) (Auto) 7.4 % (0.0-3.0) Basophils (%) (Auto) 1.5 % (0.0-2.0) Prothrombin Time 11.4 SEC (9.30-11.50) Prothromb Time International Ratio 1.1 (0.9-1.1) Activated Partial Thromboplast Time 30 SEC (23-33) Sodium Level 137 MMOL/L (136-145) Potassium Level 4.4 MMOL/L (3.5-5.1) Chloride Level 104 MMOL/L (98-107) Carbon Dioxide Level 27 MMOL/L (21-32) Anion Gap 6 mmol/L (5-15) Blood Urea Nitrogen 14 mg/dL (7-18) Creatinine 1.2 MG/DL (0.55-1.30) Estimat Glomerular Filtration Rate mL/min (>60) Glucose Level 120 MG/DL (74-106) Calcium Level 9.7 MG/DL (8.5-10.1) Current Medications Medications (Trade) Dose Ordered Sig/Roro Route PRN Reason Start Time Stop Time Status Last Admin Dose Admin Acetaminophen (Tylenol) 650 mg Q4H PRN NG Fever/Headache/Mild Pain 02/12/18 02:45 03/14/18 02:44 02/28/18 21:15 Acetaminophen/ Hydrocodone Bitart ([place] 5/325) 1 tab Q4H PRN ORAL Moderate Pain (Pain Scale 4-6) 02/26/18 16:30 03/05/18 16:29 Acetylcysteine (Mucomyst) 200 mg Q4HRT [facility] 02/21/18 23:00 03/23/18 22:59 03/02/18 15:04 Albuterol/ Ipratropium (Albuterol/ Ipratropium) 3 ml Q4HRT N 02/26/18 23:00 03/03/18 22:59 03/02/18 15:01 Barium Sulfate (Readi-Cat 2) 450 ml NOW PRN ORAL Radiology Procedure 03/01/18 11:15 03/03/18 11:09 Bisacodyl (Dulcolax) 10 mg DAILYPRN PRN RECTAL Constipation 02/20/18 20:15 03/16/18 19:14 Carbidopa/Levodopa (Sinemet 25/100) 1.5 tab THREE TIMES A DAY ORAL 02/25/18 18:00 03/14/18 12:59 03/02/18 12:15 Cinacalcet (Sensipar) 30 mg DAILY ORAL 02/13/18 09:00 03/15/18 08:59 03/02/18 09:56 Clonidine HCl (Catapres Tab) 0.1 mg Q4H PRN ORAL For SBP>170 02/21/18 09:30 03/23/18 09:29 02/26/18 03:31 Diphenhydramine HCl (Benadryl) 25 mg Q4H PRN ORAL Itching 02/27/18 14:15 03/29/18 14:14 03/02/18 12:21 Fluconazole/ Sodium Chloride 100 ml @ 100 mls/hr Q24H IV 02/27/18 12:00 03/06/18 11:59 03/02/18 12:12 Insulin Aspart (NovoLOG) 4 units NOVOTIAC SUBQ 02/12/18 11:50 03/14/18 11:49 03/02/18 16:00 Iopamidol (Isovue-300 100ml) 100 ml NOW PRN INJ Radiology Procedure 03/01/18 11:15 03/03/18 11:09 Lansoprazole (Prevacid) 30 mg ACBREAKFAST NG 02/12/18 06:30 03/14/18 06:29 03/02/18 06:14 Lorazepam (Ativan 2mg/ml 1ml) 0.5 mg Q3H PRN IV For Anxiety 02/26/18 04:45 03/05/18 04:44 03/01/18 13:28 Meropenem 1 gm/ Sodium Chloride 55 ml @ 110 mls/hr Q8H IVPB 02/28/18 18:00 03/05/18 17:59 03/02/18 09:56 Metoclopramide HCl (Reglan) 10 mg Q6H PRN IVP Nausea & Vomiting 02/28/18 13:46 03/30/18 13:45 02/28/18 13:56 Morphine Sulfate (Morphine Sulfate) 1 mg Q4HR PRN IVP Mild Pain (Pain Scale 1-3) 02/26/18 15:45 03/03/18 15:44 03/01/18 18:18 Morphine Sulfate (Morphine Sulfate) 2 mg Q4HR PRN IVP Moderate Pain (Pain Scale 4-6) 02/26/18 15:45 03/03/18 15:44 03/02/18 03:50 Morphine Sulfate (Morphine Sulfate) 4 mg Q4H PRN IVP Severe Pain (Pain Scale 7-10) 02/26/18 15:45 03/03/18 15:44 02/26/18 15:52 Ondansetron HCl (Zofran) 4 mg Q4H PRN IVP Nausea & Vomiting 02/13/18 10:30 03/15/18 10:29 03/02/18 14:51 Polyethylene Glycol (Miralax) 17 gm DAILYPRN PRN ORAL Constipation 02/20/18 20:00 03/22/18 19:59 Potassium Chloride (K-Dur) 20 meq TWICE A DAY NGT 02/16/18 10:00 03/18/18 09:59 03/02/18 09:56 Celia Capone MD Mar 02, 2018 16:19
[2018-03-02] MEDS ORDERED: Isovue-300 100ml vial INJ PRN (18:15)
[2018-03-02] MEDS ORDERED: Acetaminophen 650mg/20.3ml NG PRN (18:45)
[2018-03-02] MEDS ORDERED: Morphine Sulfate 4mg/ml Inj (IV USE ONLY) IVP PRN (19:00)
[2018-03-02] MEDS ORDERED: Miralax 17gm pkt ORAL PRN (20:00)
--- NOTE | 2018-03-02 20:02 | General Progress Note ---
Assessment/Plan Assessment/Plan Assessment - respiratory failure - s/p trach - s/p tracheal stent - s/p PEG - anemia, OB (-) x 3 - diarrhea, possibly TF related Recommendations - Restart TF - elemental TF to reduce diarrhea - follow labs - Elevate HOB Subjective Allergies: Coded Allergies: No Known Allergies (Unverified , 01/11/14) Subjective seen early this am c/o some expected GT site wound pain d/w RN diarrhea less off feeds yesterday Objective Last 24 Hour Vital Signs Date Time Temp Pulse Resp B/P (MAP) Pulse Ox O2 Delivery O2 Flow Rate FiO2 03/02/18 19:46 108 20 97 Mechanical Ventilator 30 03/02/18 19:30 102 19 30 03/02/18 19:30 102 19 95 Mechanical Ventilator 30 03/02/18 17:46 109 25 03/02/18 17:00 115 19 134/70 (91) 100 03/02/18 17:00 30 03/02/18 16:48 112 28 30 03/02/18 16:45 112 32 30 03/02/18 16:00 97.8 113 29 136/76 (96) 100 97.8 03/02/18 16:00 112 03/02/18 16:00 Mechanical Ventilator 03/02/18 16:00 30 03/02/18 15:24 94 24 99 Mechanical Ventilator 30 03/02/18 15:04 95 23 100 Mechanical Ventilator 30 03/02/18 15:00 101 18 145/70 (95) 100 03/02/18 14:59 100 26 30 03/02/18 14:00 102 18 144/73 (96) 100 03/02/18 13:10 93 22 30 03/02/18 13:00 98 18 101/59 (73) 100 03/02/18 12:01 108 18 140/73 (95) 100 03/02/18 12:01 108 03/02/18 12:00 Mechanical Ventilator 03/02/18 11:56 108 28 30 03/02/18 11:36 109 24 30 03/02/18 11:30 85 22 99 Mechanical Ventilator 30 03/02/18 11:08 85 18 96 Mechanical Ventilator 30 03/02/18 11:04 30 03/02/18 11:00 83 18 133/68 (89) 99 03/02/18 10:53 87 18 30 03/02/18 10:44 96 03/02/18 10:44 80 14 30 03/02/18 10:43 80 16 30 03/02/18 10:00 84 18 141/71 (94) 99 03/02/18 09:13 207.5 78 18 98 03/02/18 09:00 84 18 118/71 (87) 99 03/02/18 08:58 84 16 30 03/02/18 08:00 Mechanical Ventilator 03/02/18 08:00 86 18 123/67 (85) 99 03/02/18 08:00 83 03/02/18 08:00 30 03/02/18 07:16 85 16 99 Mechanical Ventilator 30 03/02/18 07:01 85 16 98 Mechanical Ventilator 30 03/02/18 07:00 98.0 87 18 99/55 (70) 99 98.0 03/02/18 06:59 85 16 30 03/02/18 06:00 90 18 139/72 (94) 99 03/02/18 05:22 93 19 30 03/02/18 05:00 97 19 137/84 (101) 96 03/02/18 04:00 Mechanical Ventilator 03/02/18 04:00 98.0 95 17 127/72 (90) 98 98.0 03/02/18 04:00 95 03/02/18 04:00 30 03/02/18 03:50 97.4 03/02/18 03:28 87 16 99 Mechanical Ventilator 30 03/02/18 03:12 89 16 97 Mechanical Ventilator 30 03/02/18 03:11 89 16 30 03/02/18 03:00 90 18 120/69 (86) 98 03/02/18 02:00 91 16 123/72 (89) 96 03/02/18 01:00 90 17 135/73 (93) 97 03/02/18 00:55 90 16 30 03/02/18 00:00 30 03/02/18 00:00 91 03/02/18 00:00 97.9 92 18 133/63 (86) 96 97.9 03/02/18 00:00 Mechanical Ventilator 03/01/18 23:30 90 16 100 Mechanical Ventilator 30 03/01/18 23:13 91 21 98 Mechanical Ventilator 30 03/01/18 23:12 93 21 30 8/6/18 23:00 91 17 118/64 (82) 99 03/01/18 22:00 91 17 147/79 (101) 97 03/01/18 21:24 95 25 30 03/01/18 21:00 101 21 156/86 (109) 98 Intake and Output 03/01/18 03/02/18 19:00 07:00 Intake Total 1110 ml 880 ml Output Total 1330 ml 1240 ml Balance -220 ml -360 ml IV Total 1110 ml 880 ml Output Urine Total 1280 ml 1240 ml Stool Total 50 ml # Bowel Movements 80 Height (Feet): 5 Height (Inches): 6.00 Weight (Pounds): 267 Objective WDWN NCAT Neck: (+) trach CTA RRR Abd Soft ND NT, (+) GT no edema neuro: awake and alert Nell Gabriel MD Mar 02, 2018 20:02
[2018-03-02] MEDS ORDERED: Norco 5mg/325mg tab ORAL PRN (20:30)
[2018-03-02] MEDS ORDERED: metroNIDAZOLE 500mg tab ORAL SCH (22:00)
[2018-03-02] MEDS: metroNIDAZOLE 500mg tab ORAL SCH (22:15)
[2018-03-03] VITALS: BP 134/74
[2018-03-03] MEDS: Morphine Sulfate 2mg/ml Inj(IV/IM USE ONLY) IVP PRN ×5 (00:20→19:59)
[2018-03-03] MEDS: Albuterol/Ipratropium 3ml neb HHN SCH ×7 (01:16→23:00)
[2018-03-03] MEDS: Acetylcysteine 20% Soln 4ml HHN SCH ×7 (01:16→23:00)
[2018-03-03 04:00] VITALS: BP 119/83
[2018-03-03 04:04] LABS: BASOPHILS % (AUTO) 2.2 % (0.0-2.0); EOSINOPHILS % (AUTO) 6.2 % (0.0-3.0); HEMATOCRIT 29.3 % (37.0-47.0); HEMOGLOBIN 9.1 G/DL (12.0-16.0); LYMPHOCYTES % (AUTO) 29.6 % (20.0-45.0); MEAN CORPUSCULAR VOLUME 82 FL (80-99); MONOCYTES % (AUTO) 8.1 % (1.0-10.0); NEUTROPHILS % (AUTO) 53.8 % (45.0-75.0); PLATELET COUNT 448 K/UL (150-450); RED BLOOD COUNT 3.57 M/UL (4.20-5.40); RED CELL DISTRIBUTION WIDTH 14.9 % (11.6-14.8); WHITE BLOOD COUNT 5.1 K/UL (4.8-10.8)
[2018-03-03 04:10] LABS: ANION GAP 7 mmol/L (5-15); BLOOD UREA NITROGEN 14 mg/dL (7-18); CALCIUM 9.7 MG/DL (8.5-10.1); CARBON DIOXIDE 27 MMOL/L (21-32); CHLORIDE 104 MMOL/L (98-107); CREATININE 1.2 MG/DL (0.55-1.30); POTASSIUM 4.4 MMOL/L (3.5-5.1); SODIUM 138 MMOL/L (136-145)
[2018-03-03] MEDS: metroNIDAZOLE 500mg tab ORAL SCH ×3 (06:05→22:14)
[2018-03-03] MEDS: NovoLOG Insulin Flexpen SUBQ SCH ×3 (06:31→17:10)
[2018-03-03 08:00] VITALS: BP 123/83
[2018-03-03] MEDS: Levodopa/Carbidopa 25/100 tab ORAL SCH ×3 (08:48→17:07)
[2018-03-03] MEDS: Sensipar 30mg Tab ORAL SCH (08:49)
[2018-03-03] MEDS: Metoclopramide 10mg/2ml Inj IVP PRN (08:49)
[2018-03-03 12:05] VITALS: BP 108/93
--- NOTE | 2018-03-03 13:14 | Pulmonology Progress Note ---
Assessment/Plan Assessment/Plan 1. Acute respiratory failure, trach 2. 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 S/p trach 5. Parkinson's disease. 6. Esophageal dysmotility, PEG 7. Morbid obesity with obesity hypoventilation syndrome. 8. Hypertension w LVH 9. Nephrolithiasis and renal mass. 10. History of breast cancer 11. Diarrhea tolerating weaning Cool aerosol trial today adjust tube feeds per GI disc w RN dc to subacute or LTAC placement when accepted Subjective ROS Limited/Unobtainable: Yes Allergies: Coded Allergies: No Known Allergies (Unverified , 01/11/14) Objective Last 24 Hour Vital Signs Date Time Temp Pulse Resp B/P (MAP) Pulse Ox O2 Delivery O2 Flow Rate FiO2 03/03/18 12:05 97.5 102 24 108/93 (98) 100 97.5 03/03/18 12:00 108 03/03/18 12:00 Trach Collar 3.0 03/03/18 12:00 3.0 26 03/03/18 11:33 103 18 98 Trach Collar 30 03/03/18 11:24 97.5 03/03/18 11:23 102 20 98 Trach Collar 10.0 30 03/03/18 10:54 97.5 03/03/18 09:05 107 25 30 03/03/18 08:00 Mechanical Ventilator 03/03/18 08:00 106 03/03/18 08:00 97.5 102 24 123/83 (96) 100 97.5 03/03/18 08:00 30 03/03/18 07:19 107 16 99 Mechanical Ventilator 30 03/03/18 07:11 109 22 30 03/03/18 07:10 109 22 96 Mechanical Ventilator 30 03/03/18 06:07 109 03/03/18 05:30 101 17 30 03/03/18 04:19 98.8 03/03/18 04:00 98.3 102 24 119/83 (95) 96 98.3 03/03/18 04:00 100 16 95 Mechanical Ventilator 30 03/03/18 04:00 101 16 97 Mechanical Ventilator 30 03/03/18 04:00 Mechanical Ventilator 03/03/18 04:00 30 03/03/18 03:30 100 16 30 03/03/18 01:11 104 20 30 03/03/18 00:00 98.8 96 24 134/74 (94) 96 98.8 03/03/18 00:00 Mechanical Ventilator 03/02/18 23:45 106 16 98 Mechanical Ventilator 30 03/02/18 23:30 104 19 94 Mechanical Ventilator 30 03/02/18 23:30 108 21 30 03/02/18 21:30 104 20 30 03/02/18 20:00 30 03/02/18 20:00 116 03/02/18 20:00 Mechanical Ventilator 03/02/18 20:00 98.8 108 19 138/94 (109) 95 98.8 03/02/18 19:46 108 20 97 Mechanical Ventilator 30 03/02/18 19:30 102 19 30 03/02/18 19:30 102 19 95 Mechanical Ventilator 30 03/02/18 17:46 109 25 03/02/18 17:00 115 19 134/70 (91) 100 03/02/18 17:00 30 03/02/18 16:48 112 28 30 03/02/18 16:45 112 32 30 03/02/18 16:00 97.8 113 29 136/76 (96) 100 97.8 03/02/18 16:00 112 03/02/18 16:00 Mechanical Ventilator 03/02/18 16:00 30 03/02/18 15:24 94 24 99 Mechanical Ventilator 30 03/02/18 15:04 95 23 100 Mechanical Ventilator 30 03/02/18 15:00 101 18 145/70 (95) 100 03/02/18 14:59 100 26 30 03/02/18 14:00 102 18 144/73 (96) 100 Intake and Output 03/02/18 03/03/18 19:00 07:00 Intake Total 690 ml 630 ml Output Total 1090 ml 750 ml Balance -400 ml -120 ml Free Water 100 ml IV Total 455 ml 100 ml Tube Feeding 135 ml 430 ml Other 100 ml Output Urine Total 1090 ml 700 ml Stool Total 50 ml Objective morbidly obese, PEG, trach General Appearance: no acute distress HEENT: atraumatic Respiratory/Chest: lungs clear Cardiovascular: normal rate Laboratory Tests 03/03/18 03:24: White Blood Count 5.1, Red Blood Count 3.57L, Hemoglobin 9.1L, Hematocrit 29.3L , Mean Corpuscular Volume 82, Mean Corpuscular Hemoglobin 25.6L, Mean Corpuscular Hemoglobin Concent 31.2L, Red Cell Distribution Width 14.9H, Platelet Count 448, Mean Platelet Volume 5.2L, Neutrophils (%) (Auto) 53.8, Lymphocytes (%) (Auto) 29.6, Monocytes (%) (Auto) 8.1, Eosinophils (%) (Auto) 6.2H, Basophils (%) (Auto) 2.2H, Sodium Level 138, Potassium Level 4.4, Chloride Level 104, Carbon Dioxide Level 27, Anion Gap 7, Blood Urea Nitrogen 14 , Creatinine 1.2, Estimat Glomerular Filtration Rate , Glucose Level 135H, Calcium Level 9.7 Current Medications Medications (Trade) Dose Ordered Sig/Roro Route PRN Reason Start Time Stop Time Status Last Admin Dose Admin Acetaminophen (Tylenol) 650 mg Q4H PRN NG Fever/Headache 03/02/18 18:45 03/14/18 02:44 Acetylcysteine (Mucomyst) 200 mg Q4HRT N 03/02/18 19:00 03/23/18 22:59 03/03/18 11:22 Albuterol/ Ipratropium (Albuterol/ Ipratropium) 3 ml Q4HRT N 03/02/18 19:00 03/03/18 22:59 03/03/18 11:23 Bisacodyl (Dulcolax) 10 mg DAILYPRN PRN RECTAL Constipation 03/02/18 20:15 03/16/18 19:14 Carbidopa/Levodopa (Sinemet 25/100) 1.5 tab THREE TIMES A DAY ORAL 03/02/18 18:15 03/14/18 12:59 03/03/18 12:25 Cefepime HCl 2 gm/ Dextrose 100 ml @ 200 mls/hr Q24H IVPB 03/02/18 20:00 03/09/18 19:59 03/02/18 20:38 Cinacalcet (Sensipar) 30 mg DAILY ORAL 03/03/18 09:00 03/15/18 08:59 03/03/18 08:49 Clonidine HCl (Catapres Tab) 0.1 mg Q4H PRN ORAL For SBP>170 03/02/18 19:00 03/23/18 18:59 Diphenhydramine HCl (Benadryl) 25 mg Q4H PRN ORAL Itching 03/02/18 19:00 03/29/18 18:59 Fluconazole/ Sodium Chloride 100 ml @ 100 mls/hr Q24H IV 03/03/18 12:00 03/06/18 11:59 03/03/18 12:45 Insulin Aspart (NovoLOG) 4 units NOVOTIAC SUBQ 03/03/18 06:30 03/14/18 11:49 03/03/18 12:46 Lansoprazole (Prevacid) 30 mg ACBREAKFAST NG 03/03/18 06:30 03/14/18 06:29 03/03/18 06:05 Lorazepam (Ativan 2mg/ml 1ml) 0.5 mg Q3H PRN IV For Anxiety 03/02/18 19:00 03/05/18 18:59 Metoclopramide HCl (Reglan) 10 mg Q6H PRN IVP Nausea & Vomiting 03/02/18 19:00 03/30/18 18:59 03/03/18 08:49 Metronidazole (Flagyl) 500 mg EVERY 8 HOURS ORAL 03/02/18 22:00 03/09/18 21:59 03/03/18 06:05 Morphine Sulfate (Morphine Sulfate) 1 mg Q4H PRN IVP Mild Pain (Pain Scale 1-3) 03/02/18 19:00 03/09/18 18:59 03/03/18 04:19 Morphine Sulfate (Morphine Sulfate) 2 mg Q4HR PRN IVP Moderate Pain (Pain Scale 4-6) 03/02/18 19:00 03/07/18 18:59 03/03/18 10:54 Morphine Sulfate (Morphine Sulfate) 4 mg Q4H PRN IVP Severe Pain (Pain Scale 7-10) 03/02/18 19:00 03/07/18 18:59 Ondansetron HCl (Zofran) 4 mg Q4H PRN IVP Nausea & Vomiting 03/02/18 19:00 03/15/18 18:59 03/03/18 06:55 Polyethylene Glycol (Miralax) 17 gm DAILYPRN PRN ORAL Constipation 03/02/18 20:00 03/22/18 19:59 Potassium Chloride (K-Dur) 20 meq TWICE A DAY NGT 03/02/18 20:00 03/18/18 19:59 03/03/18 08:49 Gómez Matos MD Mar 03, 2018 13:14
[2018-03-03] MEDS: LORazepam Inj 2mg/ml 1ml IV PRN (14:05)
[2018-03-03 16:14] VITALS: BP 132/84
--- NOTE | 2018-03-03 19:08 | General Progress Note ---
Assessment/Plan Assessment/Plan Assessment - respiratory failure - s/p trach - s/p tracheal stent - s/p PEG - anemia, OB (-) x 3 - diarrhea, possibly TF related Recommendations - Advance TF - elemental TF to reduce diarrhea - follow labs - Elevate HOB Subjective Allergies: Coded Allergies: No Known Allergies (Unverified , 01/11/14) Subjective seen early this am c/o some expected GT site wound pain d/w RN Objective Last 24 Hour Vital Signs Date Time Temp Pulse Resp B/P (MAP) Pulse Ox O2 Delivery O2 Flow Rate FiO2 03/03/18 19:07 100 20 96 Trach Collar 6.0 26 03/03/18 18:56 105 20 91 Room Air 03/03/18 18:46 93 Room Air 03/03/18 18:46 Room Air 03/03/18 16:14 98.6 110 26 132/84 (100) 100 98.6 03/03/18 16:00 Trach Collar 3.0 03/03/18 16:00 3.0 26 03/03/18 15:50 97.5 03/03/18 15:36 107 18 95 Trach Collar 6.0 26 03/03/18 15:32 108 03/03/18 15:24 109 18 92 Trach Collar 3.0 26 03/03/18 15:20 97.5 03/03/18 12:05 97.5 102 24 108/93 (98) 100 97.5 03/03/18 12:00 108 03/03/18 12:00 Trach Collar 3.0 03/03/18 12:00 3.0 26 03/03/18 11:33 103 18 98 Trach Collar 30 03/03/18 11:23 102 20 98 Trach Collar 10.0 30 03/03/18 10:54 97.5 03/03/18 09:53 95 Trach Collar 6.0 26 03/03/18 09:53 Trach Collar 6.0 26 03/03/18 09:05 107 25 30 03/03/18 08:00 Mechanical Ventilator 03/03/18 08:00 106 03/03/18 08:00 97.5 102 24 123/83 (96) 100 97.5 03/03/18 08:00 30 03/03/18 07:19 107 16 99 Mechanical Ventilator 30 03/03/18 07:11 109 22 30 03/03/18 07:10 109 22 96 Mechanical Ventilator 30 03/03/18 06:07 109 03/03/18 05:30 101 17 30 03/03/18 04:19 98.8 03/03/18 04:00 98.3 102 24 119/83 (95) 96 98.3 03/03/18 04:00 100 16 95 Mechanical Ventilator 30 03/03/18 04:00 101 16 97 Mechanical Ventilator 30 03/03/18 04:00 Mechanical Ventilator 03/03/18 04:00 30 03/03/18 03:30 100 16 30 03/03/18 01:11 104 20 30 03/03/18 00:00 98.8 96 24 134/74 (94) 96 98.8 03/03/18 00:00 Mechanical Ventilator 03/02/18 23:45 106 16 98 Mechanical Ventilator 30 03/02/18 23:30 104 19 94 Mechanical Ventilator 30 03/02/18 23:30 108 21 30 03/02/18 21:30 104 20 30 03/02/18 20:00 30 03/02/18 20:00 116 03/02/18 20:00 Mechanical Ventilator 03/02/18 20:00 98.8 108 19 138/94 (109) 95 98.8 03/02/18 19:46 108 20 97 Mechanical Ventilator 30 03/02/18 19:30 102 19 30 03/02/18 19:30 102 19 95 Mechanical Ventilator 30 Intake and Output 03/02/18 03/03/18 19:00 07:00 Intake Total 690 ml 630 ml Output Total 1090 ml 750 ml Balance -400 ml -120 ml Free Water 100 ml IV Total 455 ml 100 ml Tube Feeding 135 ml 430 ml Other 100 ml Output Urine Total 1090 ml 700 ml Stool Total 50 ml Laboratory Tests 03/03/18 03:24: White Blood Count 5.1, Red Blood Count 3.57L, Hemoglobin 9.1L, Hematocrit 29.3L , Mean Corpuscular Volume 82, Mean Corpuscular Hemoglobin 25.6L, Mean Corpuscular Hemoglobin Concent 31.2L, Red Cell Distribution Width 14.9H, Platelet Count 448, Mean Platelet Volume 5.2L, Neutrophils (%) (Auto) 53.8, Lymphocytes (%) (Auto) 29.6, Monocytes (%) (Auto) 8.1, Eosinophils (%) (Auto) 6.2H, Basophils (%) (Auto) 2.2H, Sodium Level 138, Potassium Level 4.4, Chloride Level 104, Carbon Dioxide Level 27, Anion Gap 7, Blood Urea Nitrogen 14 , Creatinine 1.2, Estimat Glomerular Filtration Rate , Glucose Level 135H, Calcium Level 9.7 Height (Feet): 5 Height (Inches): 6.00 Weight (Pounds): 267 Objective WDWN NCAT Neck: (+) trach CTA RRR Abd Soft ND NT, (+) GT no edema neuro: awake and alert Nell Gabriel MD Mar 03, 2018 19:08
[2018-03-03 20:00] VITALS: BP 141/80
[2018-03-04] VITALS: BP 145/65
[2018-03-04] MEDS: LORazepam Inj 2mg/ml 1ml IV PRN ×2 (00:41→08:44)
[2018-03-04] MEDS: Acetylcysteine 20% Soln 4ml HHN SCH ×4 (03:00→15:51)
[2018-03-04 04:00] VITALS: BP 126/60
[2018-03-04] MEDS: Morphine Sulfate 2mg/ml Inj(IV/IM USE ONLY) IVP PRN (04:08)
[2018-03-04] MEDS: metroNIDAZOLE 500mg tab ORAL SCH ×3 (06:24→21:47)
[2018-03-04] MEDS: NovoLOG Insulin Flexpen SUBQ SCH ×3 (06:31→16:56)
[2018-03-04 08:00] VITALS: BP 145/93
[2018-03-04] MEDS: Levodopa/Carbidopa 25/100 tab ORAL SCH ×3 (08:43→17:55)
[2018-03-04] MEDS: Sensipar 30mg Tab ORAL SCH (08:43)
[2018-03-04] MEDS: Albuterol/Ipratropium 3ml neb HHN SCH ×4 (11:11→23:52)
[2018-03-04 12:00] VITALS: BP 157/107
--- NOTE | 2018-03-04 15:13 | General Progress Note ---
Progress Note Progress Note Surgery: much improved. trach clean and functional trach sutures to stay in 1-2 weeks. can be removed after. they are absorbable sutures downsize trach there after as tolerating. thank you for allowing me to participate in Kayleigh Ortega's care. Chuck Villeda Mar 04, 2018 15:13
--- NOTE | 2018-03-04 15:59 | Infectious Diseases Prog Note ---
Assessment/Plan Assessment/Plan ASSESSMENT AND PLAN: 1. sepsis, leukocytosis, pseudomonas pna, e.coli uti, fungal uti, fungemia risk , lgt, diarrhea, c.diff. negative, respiratory failure, s/p trach - leukocytosis resolved, chest x-ray stable - cefepime and flagyl, diflucan - monitor labs and chest x-ray, ct abdomen and pelvis noted - d/w daughter 2. Hypertension. Blood pressure treatment per primary, Dr. Matos. 3. Respiratory failure, on vent, weaning per Dr. Matos. 4. Rectal tube and diarrhea. 5. Mistry. 6. Clostridium difficile negative. 7. Parkinson disease. 8. Dysphagia. 9. Aspiration risk. 10. 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 11. History of anemia. 12. Nephrolithiasis. 13. Meningioma. 14. History of breast cancer. 15. History of lumpectomy. 16. Obesity. 17. Obesity hypoventilation syndrome. 18. No known allergies. 19. Social history negative. 20. MAR was noted. 21. Case discussed with RN. 22. Family history noncontributory. 23. Continue treatments per primary consultants. 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 Subjective Constitutional: Reports: fatigue, other - + trach, no vent , alert, talking ; Denies: fever HEENT: Denies: congestion Respiratory: Denies: shortness of breath Cardiovascular: Denies: chest pain Gastrointestinal/Abdominal: Reports: other - + rectal tube; Denies: nausea, vomiting, diarrhea Genitourinary: Reports: other Neurologic: Reports: other - more alert Psychiatric: Denies: depression Skin: Denies: rash Hematologic: Denies: bleeding Musculoskeletal: Denies: pain Allergies: Coded Allergies: No Known Allergies (Unverified , 01/11/14) Objective Vital Signs Last 24 Hour Vital Signs Date Time Temp Pulse Resp B/P (MAP) Pulse Ox O2 Delivery O2 Flow Rate FiO2 03/04/18 15:49 107 20 96 Trach Collar 6.0 28 03/04/18 13:31 105 03/04/18 12:39 T-piece 6.0 28 03/04/18 12:39 95 T-piece 6.0 28 03/04/18 12:00 97.6 109 24 157/107 (124) 99 97.6 03/04/18 12:00 5.0 28 03/04/18 11:16 103 20 98 Trach Collar 6.0 26 03/04/18 11:07 106 22 96 Trach Collar 28 03/04/18 08:53 100 03/04/18 08:16 94 03/04/18 08:00 5.0 28 03/04/18 08:00 Trach Collar 5.0 03/04/18 08:00 97.6 99 22 145/93 (110) 100 97.6 03/04/18 07:45 Trach Collar 6.0 03/04/18 07:44 Trach Collar 28 03/04/18 07:28 T-piece 6.0 28 03/04/18 07:27 97 T-piece 6.0 28 03/04/18 04:00 3.0 26 03/04/18 04:00 97.5 83 24 126/60 (82) 100 97.5 03/04/18 04:00 Trach Collar 3.0 03/04/18 04:00 106 03/04/18 03:00 Trach Collar 26 03/04/18 03:00 Trach Collar 6.0 26 03/04/18 00:51 86 20 Trach Collar 28 03/04/18 00:00 98.0 83 24 145/65 (91) 100 98.0 03/04/18 00:00 3.0 26 03/04/18 00:00 Trach Collar 3.0 03/04/18 00:00 83 03/03/18 23:04 101 20 97 Trach Collar 6.0 26 03/03/18 22:56 100 20 95 Trach Collar 3.0 26 03/03/18 20:00 98.5 105 24 141/80 (100) 100 98.5 03/03/18 20:00 Trach Collar 3.0 03/03/18 20:00 3.0 26 03/03/18 19:40 106 03/03/18 19:07 100 20 96 Trach Collar 6.0 03/03/18 18:56 105 20 91 Room Air 03/03/18 18:46 93 Room Air 03/03/18 18:46 Room Air 03/03/18 16:14 98.6 110 26 132/84 (100) 100 98.6 03/03/18 16:00 Trach Collar 3.0 03/03/18 16:00 3.0 26 Height (Feet): 5 Height (Inches): 6.00 Weight (Pounds): 268 General Appearance: no acute distress HEENT: normocephalic, atraumatic, anicteric, mucous membranes moist, EOMI, pharynx normal, supple, no JVD Respiratory/Chest: crackles/rales, rhonchi - bilaterally Cardiovascular: normal rate, regular rhythm, no gallop/murmur, no JVD Abdomen: normal bowel sounds, soft, non tender, no organomegaly, non distended Genitourinary: other - no mistry Extremities: no cyanosis Skin: no rash Neurologic/Psychiatric: department helper II-XII grossly normal, alert, responsive, other - speaking Lymphatic: no neck adenopathy Musculoskeletal: no effusion Objective Chest -x -ray - 02/26 - Findings: Increased consolidation is seen in the right perihilar region and right lung base. There is increased consolidation of the left lung base. There is generalized mild interstitial congestion again demonstrated. There is probably some pleural fluid on the left. The heart is borderline enlarged. The aorta is tortuous. Again demonstrated are endotracheal and nasogastric tube and a mediastinal stent. Impression: Worsening bilateral basilar infiltrates versus edema, over 2 days Chest x-ray - 02/28 - INDICATION: Infection COMPARISON: Chest x-ray dated 02/26/18 FINDINGS: Single frontal view demonstrates prominent heart size. Nasogastric tube below diaphragm. Tracheostomy. Aortic stent. Mild bilateral lower lobe opacities, right greater than left. No pleural effusions. The visualized osseous structures are within normal limits. IMPRESSION: No significant change. Tubes and lines as outlined above. Mild bilateral lower lobe opacity, right greater than left. Chest x-ray - 03/02 - IMPRESSION: * Interval removal of enteric tube * Tracheostomy tube unchanged. Unchanged mediastinal stent, likely tracheal stent. * Persistent but slightly decreased right base opacities. * Left Basilar/retrocardiac opacities unchanged. Small left pleural effusion not excluded. CT abdomen and pelvis: Impression: Evidence of satisfactory gastrostomy placement, without evidence of complication. Satisfactory position, no evidence of adjacent fluid collection, and no evidence of traversal of intervening vital structures Mural gallbladder calcifications, consistent with so-called porcelain gallbladder 6 mm nonobstructive left renal calyceal calculus Microbiology Date/Time Source Procedure Growth Status 02/26/18 05:45 Blood Blood Culture - Final NO GROWTH AFTER 5 DAYS Complete 02/26/18 14:17 Throat Gram Stain - Final Complete 02/26/18 14:17 Aerobic Culture - Final Pseudomonas Aeruginosa Complete 02/21/18 18:30 Stool Clostridium difficile Toxin Assay - Final Complete 02/26/18 10:00 Indwelling Cath Urine Culture - Final Lorena Albicans Complete 02/26/18 14:17 Trachea Swab Anaerobic Culture - Final NO ANAEROBES ISOLATED Complete Labs Test 03/03/18 03:24 White Blood Count 5.1 K/UL (4.8-10.8) Red Blood Count 3.57 M/UL (4.20-5.40) Hemoglobin 9.1 G/DL (12.0-16.0) Hematocrit 29.3 % (37.0-47.0) Mean Corpuscular Volume 82 FL (80-99) Mean Corpuscular Hemoglobin 25.6 PG (27.0-31.0) Mean Corpuscular Hemoglobin Concent 31.2 G/DL (32.0-36.0) Red Cell Distribution Width 14.9 % (11.6-14.8) Platelet Count 448 K/UL (150-450) Mean Platelet Volume 5.2 FL (6.5-10.1) Neutrophils (%) (Auto) 53.8 % (45.0-75.0) Lymphocytes (%) (Auto) 29.6 % (20.0-45.0) Monocytes (%) (Auto) 8.1 % (1.0-10.0) Eosinophils (%) (Auto) 6.2 % (0.0-3.0) Basophils (%) (Auto) 2.2 % (0.0-2.0) Sodium Level 138 MMOL/L (136-145) Potassium Level 4.4 MMOL/L (3.5-5.1) Chloride Level 104 MMOL/L (98-107) Carbon Dioxide Level 27 MMOL/L (21-32) Anion Gap 7 mmol/L (5-15) Blood Urea Nitrogen 14 mg/dL (7-18) Creatinine 1.2 MG/DL (0.55-1.30) Estimat Glomerular Filtration Rate mL/min (>60) Glucose Level 135 MG/DL (74-106) Calcium Level 9.7 MG/DL (8.5-10.1) Current Medications Medications (Trade) Dose Ordered Sig/Roro Route PRN Reason Start Time Stop Time Status Last Admin Dose Admin Acetaminophen (Tylenol) 650 mg Q4H PRN NG Fever/Headache 03/02/18 18:45 03/14/18 02:44 Acetylcysteine (Mucomyst) 200 mg Q4HRT HHN 03/02/18 19:00 03/23/18 22:59 03/04/18 15:51 Albuterol/ Ipratropium (Albuterol/ Ipratropium) 3 ml Q4HRT HHN 03/04/18 11:00 03/09/18 10:59 03/04/18 15:51 Bisacodyl (Dulcolax) 10 mg DAILYPRN PRN RECTAL Constipation 03/02/18 20:15 03/16/18 19:14 Carbidopa/Levodopa (Sinemet 25/100) 1.5 tab THREE TIMES A DAY ORAL 03/02/18 18:15 03/14/18 12:59 03/04/18 13:18 Cefepime HCl 2 gm/ Dextrose 100 ml @ 200 mls/hr Q24H IVPB 03/02/18 20:00 03/09/18 19:59 03/03/18 19:56 Cinacalcet (Sensipar) 30 mg DAILY ORAL 03/03/18 09:00 03/15/18 08:59 03/04/18 08:43 Clonidine HCl (Catapres Tab) 0.1 mg Q4H PRN ORAL For SBP>170 03/02/18 19:00 03/23/18 18:59 Diphenhydramine HCl (Benadryl) 25 mg Q4H PRN ORAL Itching 03/02/18 19:00 03/29/18 18:59 Fluconazole/ Sodium Chloride 100 ml @ 100 mls/hr Q24H IV 03/03/18 12:00 03/06/18 11:59 03/04/18 12:00 Insulin Aspart (NovoLOG) 4 units NOVOTIAC SUBQ 03/03/18 06:30 03/14/18 11:49 03/04/18 11:56 Lansoprazole (Prevacid) 30 mg ACBREAKFAST NG 03/03/18 06:30 03/14/18 06:29 03/04/18 06:24 Lorazepam (Ativan 2mg/ml 1ml) 0.5 mg Q3H PRN IV For Anxiety 03/02/18 19:00 03/05/18 18:59 03/04/18 08:44 Metoclopramide HCl (Reglan) 10 mg Q6H PRN IVP Nausea & Vomiting 03/02/18 19:00 03/30/18 18:59 03/03/18 08:49 Metronidazole (Flagyl) 500 mg EVERY 8 HOURS ORAL 03/02/18 22:00 03/09/18 21:59 03/04/18 14:07 Morphine Sulfate (Morphine Sulfate) 1 mg Q4H PRN IVP Mild Pain (Pain Scale 1-3) 03/02/18 19:00 03/09/18 18:59 03/03/18 19:59 Morphine Sulfate (Morphine Sulfate) 2 mg Q4HR PRN IVP Moderate Pain (Pain Scale 4-6) 03/02/18 19:00 03/07/18 18:59 03/04/18 04:08 Morphine Sulfate (Morphine Sulfate) 4 mg Q4H PRN IVP Severe Pain (Pain Scale 7-10) 03/02/18 19:00 03/07/18 18:59 Ondansetron HCl (Zofran) 4 mg Q4H PRN IVP Nausea & Vomiting 03/02/18 19:00 03/15/18 18:59 03/03/18 06:55 Polyethylene Glycol (Miralax) 17 gm DAILYPRN PRN ORAL Constipation 03/02/18 20:00 03/22/18 19:59 Potassium Chloride (K-Dur) 20 meq TWICE A DAY NGT 03/02/18 20:00 03/18/18 19:59 03/04/18 08:44 Celia Capone MD Mar 04, 2018 15:59
[2018-03-04 16:00] VITALS: BP 152/97
--- NOTE | 2018-03-04 16:41 | Pulmonology Progress Note ---
Assessment/Plan Assessment/Plan 1. Acute respiratory failure, trach 2. 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 S/p trach 5. Parkinson's disease. 6. Esophageal dysmotility, PEG 7. Morbid obesity with obesity hypoventilation syndrome. 8. Hypertension w LVH 9. Nephrolithiasis and renal mass. 10. History of breast cancer 11. Diarrhea off vent x 24 h Cool aerosol tolerated well w speaking valve tube feeds per GI; swallow eval disc w RN, family BP high; home meds restarted dc to subacute or LTAC placement when accepted Subjective Constitutional: Denies: fever Respiratory: Reports: productive cough; Denies: shortness of breath Allergies: Coded Allergies: No Known Allergies (Unverified , 01/11/14) Objective Last 24 Hour Vital Signs Date Time Temp Pulse Resp B/P (MAP) Pulse Ox O2 Delivery O2 Flow Rate FiO2 03/04/18 16:00 Trach Collar 5.0 03/04/18 15:57 109 20 97 Trach Collar 6.0 03/04/18 15:49 107 20 96 Trach Collar 6.0 03/04/18 13:31 105 03/04/18 12:39 T-piece 6.0 03/04/18 12:39 95 T-piece 6.0 03/04/18 12:00 97.6 109 24 157/107 (124) 99 97.6 03/04/18 12:00 Trach Collar 5.0 03/04/18 12:00 5.0 28 03/04/18 11:16 103 20 98 Trach Collar 6.0 03/04/18 11:07 106 22 96 Trach Collar 03/04/18 08:53 100 03/04/18 08:16 94 03/04/18 08:00 5.0 28 03/04/18 08:00 Trach Collar 5.0 03/04/18 08:00 97.6 99 22 145/93 (110) 100 97.6 03/04/18 07:45 Trach Collar 6.0 03/04/18 07:44 Trach Collar 03/04/18 07:28 T-piece 6.0 03/04/18 07:27 97 T-piece 6.0 03/04/18 04:00 3.0 26 03/04/18 04:00 97.5 83 24 126/60 (82) 100 97.5 03/04/18 04:00 Trach Collar 3.0 03/04/18 04:00 106 03/04/18 03:00 Trach Collar 26 03/04/18 03:00 Trach Collar 6.0 26 03/04/18 00:51 86 20 Trach Collar 28 03/04/18 00:00 98.0 83 24 145/65 (91) 100 98.0 03/04/18 00:00 3.0 26 03/04/18 00:00 Trach Collar 3.0 03/04/18 00:00 83 03/03/18 23:04 101 20 97 Trach Collar 6.0 03/03/18 22:56 100 20 95 Trach Collar 3.0 26 03/03/18 20:00 98.5 105 24 141/80 (100) 100 98.5 03/03/18 20:00 Trach Collar 3.0 03/03/18 20:00 3.0 26 03/03/18 19:40 106 03/03/18 19:07 100 20 96 Trach Collar 6.0 26 03/03/18 18:56 105 20 91 Room Air 21 03/03/18 18:46 93 Room Air 21 03/03/18 18:46 Room Air 21 Intake and Output 03/03/18 03/04/18 19:00 07:00 Intake Total 470 ml 715 ml Output Total 900 ml 700 ml Balance -430 ml 15 ml Free Water 200 ml IV Total 100 ml 100 ml Tube Feeding 370 ml 415 ml Output Urine Total 900 ml 700 ml Stool Total 0 ml 0 ml Objective morbidly obese, PEG, trach General Appearance: no acute distress Respiratory/Chest: lungs clear Cardiovascular: normal rate Abdomen: soft, non tender Current Medications Medications (Trade) Dose Ordered Sig/Roro Route PRN Reason Start Time Stop Time Status Last Admin Dose Admin Acetaminophen (Tylenol) 650 mg Q4H PRN NG Fever/Headache 03/02/18 18:45 03/14/18 02:44 Albuterol/ Ipratropium (Albuterol/ Ipratropium) 3 ml Q4HRT HHN 03/04/18 11:00 03/09/18 10:59 03/04/18 15:51 Bisacodyl (Dulcolax) 10 mg DAILYPRN PRN RECTAL Constipation 03/02/18 20:15 03/16/18 19:14 Carbidopa/Levodopa (Sinemet 25/100) 1.5 tab THREE TIMES A DAY ORAL 03/02/18 18:15 03/14/18 12:59 03/04/18 13:18 Cefepime HCl 2 gm/ Dextrose 100 ml @ 200 mls/hr Q24H IVPB 03/02/18 20:00 03/09/18 19:59 03/03/18 19:56 Cinacalcet (Sensipar) 30 mg DAILY ORAL 03/03/18 09:00 03/15/18 08:59 03/04/18 08:43 Clonidine HCl (Catapres Tab) 0.1 mg Q4H PRN ORAL For SBP>170 03/02/18 19:00 03/23/18 18:59 Diphenhydramine HCl (Benadryl) 25 mg Q4H PRN ORAL Itching 03/02/18 19:00 03/29/18 18:59 Fluconazole/ Sodium Chloride 100 ml @ 100 mls/hr Q24H IV 03/05/18 12:00 03/08/18 11:59 Insulin Aspart (NovoLOG) 4 units NOVOTIAC SUBQ 03/03/18 06:30 03/14/18 11:49 03/04/18 11:56 Lansoprazole (Prevacid) 30 mg ACBREAKFAST NG 03/03/18 06:30 03/14/18 06:29 03/04/18 06:24 Metoclopramide HCl (Reglan) 10 mg Q6H PRN IVP Nausea & Vomiting 03/02/18 19:00 03/30/18 18:59 03/03/18 08:49 Metronidazole (Flagyl) 500 mg EVERY 8 HOURS ORAL 03/02/18 22:00 03/09/18 21:59 03/04/18 14:07 Ondansetron HCl (Zofran) 4 mg Q4H PRN IVP Nausea & Vomiting 03/02/18 19:00 03/15/18 18:59 03/03/18 06:55 Polyethylene Glycol (Miralax) 17 gm DAILYPRN PRN ORAL Constipation 03/02/18 20:00 03/22/18 19:59 Potassium Chloride (K-Dur) 20 meq TWICE A DAY NGT 03/02/18 20:00 03/18/18 19:59 03/04/18 08:44 Gómez Matos MD Mar 04, 2018 16:41
[2018-03-04] MEDS ORDERED: NS 500ML ONE (18:00)
--- NOTE | 2018-03-04 19:53 | General Progress Note ---
Assessment/Plan Assessment/Plan Assessment - respiratory failure - s/p trach - s/p tracheal stent - s/p PEG - anemia, OB (-) x 3 - diarrhea, possibly TF related Recommendations - Continue TF - PT eval / OOB to chair - elemental TF to reduce diarrhea - follow labs - Elevate HOB Subjective Allergies: Coded Allergies: No Known Allergies (Unverified , 01/11/14) Subjective seen early this am c/o (R) sided torso cramps d/w RN PT eval ordered Objective Last 24 Hour Vital Signs Date Time Temp Pulse Resp B/P (MAP) Pulse Ox O2 Delivery O2 Flow Rate FiO2 03/04/18 19:11 94 T-piece 6.0 03/04/18 19:11 99 20 97 Trach Collar 6.0 03/04/18 19:11 T-piece 6.0 03/04/18 19:05 101 22 94 Trach Collar 6.0 03/04/18 16:00 111 03/04/18 16:00 Trach Collar 5.0 03/04/18 16:00 97.6 112 21 152/97 (115) 100 97.6 03/04/18 16:00 5.0 28 03/04/18 15:57 109 20 97 Trach Collar 6.0 03/04/18 15:49 107 20 96 Trach Collar 6.0 03/04/18 13:31 105 03/04/18 12:39 T-piece 6.0 03/04/18 12:39 95 T-piece 6.0 03/04/18 12:00 97.6 109 24 157/107 (124) 99 97.6 03/04/18 12:00 Trach Collar 5.0 03/04/18 12:00 5.0 03/04/18 11:16 103 20 98 Trach Collar 6.0 03/04/18 11:07 106 22 96 Trach Collar 28 03/04/18 08:53 100 03/04/18 08:16 94 03/04/18 08:00 5.0 03/04/18 08:00 Trach Collar 5.0 03/04/18 08:00 97.6 99 22 145/93 (110) 100 97.6 03/04/18 07:45 Trach Collar 6.0 03/04/18 07:44 Trach Collar 03/04/18 07:28 T-piece 6.0 03/04/18 07:27 97 T-piece 6.0 03/04/18 04:00 3.0 03/04/18 04:00 97.5 83 24 126/60 (82) 100 97.5 03/04/18 04:00 Trach Collar 3.0 03/04/18 04:00 106 03/04/18 03:00 Trach Collar 26 03/04/18 03:00 Trach Collar 6.0 03/04/18 00:51 86 20 Trach Collar 28 03/04/18 00:00 98.0 83 24 145/65 (91) 100 98.0 03/04/18 00:00 3.0 03/04/18 00:00 Trach Collar 3.0 03/04/18 00:00 83 03/03/18 23:04 101 20 97 Trach Collar 6.0 03/03/18 22:56 100 20 95 Trach Collar 3.0 03/03/18 20:00 98.5 105 24 141/80 (100) 100 98.5 03/03/18 20:00 Trach Collar 3.0 03/03/18 20:00 3.0 26 Intake and Output 03/03/18 03/04/18 18:59 06:59 Intake Total 465 ml 750 ml Output Total 900 ml 700 ml Balance -435 ml 50 ml Free Water 200 ml IV Total 100 ml 100 ml Tube Feeding 365 ml 450 ml Output Urine Total 900 ml 700 ml Stool Total 0 ml 0 ml Height (Feet): 5 Height (Inches): 6.00 Weight (Pounds): 268 Objective WDWN NCAT Neck: (+) trach CTA RRR Abd Soft ND NT, (+) GT no edema neuro: awake and alert Nell Gabriel MD Mar 04, 2018 19:53
[2018-03-04 20:00] VITALS: BP 148/73
[2018-03-05] MEDS: Albuterol/Ipratropium 3ml neb HHN SCH ×6 (02:35→22:54)
[2018-03-05 04:00] VITALS: BP 157/88
[2018-03-05 05:33] LABS: BASOPHILS % (AUTO) 1.4 % (0.0-2.0); EOSINOPHILS % (AUTO) 4.5 % (0.0-3.0); HEMATOCRIT 31.6 % (37.0-47.0); HEMOGLOBIN 9.8 G/DL (12.0-16.0); LYMPHOCYTES % (AUTO) 30.6 % (20.0-45.0); MEAN CORPUSCULAR VOLUME 82 FL (80-99); MONOCYTES % (AUTO) 8.2 % (1.0-10.0); NEUTROPHILS % (AUTO) 55.3 % (45.0-75.0); PLATELET COUNT 438 K/UL (150-450); RED BLOOD COUNT 3.84 M/UL (4.20-5.40); RED CELL DISTRIBUTION WIDTH 14.4 % (11.6-14.8); WHITE BLOOD COUNT 7.1 K/UL (4.8-10.8)
[2018-03-05 05:55] LABS: ALANINE AMINOTRANSFERASE 8 U/L (12-78); ALBUMIN 2.4 G/DL (3.4-5.0); ALBUMIN/GLOBULIN RATIO 0.5 (1.0-2.7); ALKALINE PHOSPHATASE 80 U/L (46-116); ANION GAP 6 mmol/L (5-15); ASPARTATE AMINO TRANSFERASE 16 U/L (15-37); BILIRUBIN,TOTAL 0.2 MG/DL (0.2-1.0); BLOOD UREA NITROGEN 23 mg/dL (7-18); CALCIUM 9.7 MG/DL (8.5-10.1); CARBON DIOXIDE 28 MMOL/L (21-32); CHLORIDE 102 MMOL/L (98-107); CREATININE 0.9 MG/DL (0.55-1.30); POTASSIUM 4.8 MMOL/L (3.5-5.1); SODIUM 136 MMOL/L (136-145)
[2018-03-05] MEDS: metroNIDAZOLE 500mg tab ORAL SCH ×2 (06:09→14:12)
[2018-03-05] MEDS: NovoLOG Insulin Flexpen SUBQ SCH ×3 (06:14→17:35)
[2018-03-05 08:00] VITALS: BP 128/72
--- NOTE | 2018-03-05 08:45 | Pulmonology Progress Note ---
Assessment/Plan Assessment/Plan 1. Acute respiratory failure, trach 2. 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 S/p trach 5. Parkinson's disease. 6. Esophageal dysmotility, PEG 7. Morbid obesity with obesity hypoventilation syndrome. 8. Hypertension w LVH 9. Nephrolithiasis and renal mass. 10. History of breast cancer 11. Diarrhea off vent x 2 d Cool aerosol tolerated well w speaking valve tube feeds per GI; swallow eval less diarrhea, dc rectal tube disc w RN BP better dc to subacute or LTAC placement when accepted Subjective Respiratory: Denies: shortness of breath Gastrointestinal/Abdominal: Reports: diarrhea Allergies: Coded Allergies: No Known Allergies (Unverified , 01/11/14) Objective Last 24 Hour Vital Signs Date Time Temp Pulse Resp B/P (MAP) Pulse Ox O2 Delivery O2 Flow Rate FiO2 03/05/18 08:00 5.0 28 03/05/18 08:00 Trach Collar 5.0 03/05/18 08:00 97.9 102 24 128/72 (90) 95 97.9 03/05/18 07:40 95 20 95 Trach Collar 6.0 26 03/05/18 07:32 T-piece 6.0 28 03/05/18 07:32 94 T-piece 6.0 28 03/05/18 07:30 93 20 94 Trach Collar 6.0 03/05/18 04:00 105 03/05/18 04:00 97.8 107 22 157/88 (111) 99 97.8 03/05/18 04:00 Trach Collar 5.0 03/05/18 04:00 5.0 28 03/05/18 02:34 102 22 99 Trach Collar 6.0 26 03/05/18 02:30 101 18 94 Trach Collar 6.0 03/05/18 00:59 95 T-piece 6.0 28 03/05/18 00:59 T-piece 6.0 28 03/05/18 00:00 5.0 28 03/05/18 00:00 Trach Collar 5.0 03/05/18 00:00 107 20 98 03/05/18 00:00 108 03/04/18 23:29 104 22 98 Trach Collar 6.0 03/04/18 23:20 109 20 95 Trach Collar 6.0 28 03/04/18 21:47 107 148/73 03/04/18 20:00 107 03/04/18 20:00 5.0 28 03/04/18 20:00 Trach Collar 5.0 03/04/18 20:00 97.3 107 23 148/73 (98) 100 97.3 03/04/18 19:11 94 T-piece 6.0 03/04/18 19:11 99 20 97 Trach Collar 6.0 03/04/18 19:11 T-piece 6.0 03/04/18 19:05 101 22 94 Trach Collar 6.0 03/04/18 16:00 111 03/04/18 16:00 Trach Collar 5.0 03/04/18 16:00 97.6 112 21 152/97 (115) 100 97.6 03/04/18 16:00 5.0 03/04/18 15:57 109 20 97 Trach Collar 6.0 03/04/18 15:49 107 20 96 Trach Collar 6.0 03/04/18 13:31 105 03/04/18 12:39 T-piece 6.0 03/04/18 12:39 95 T-piece 6.0 03/04/18 12:00 97.6 109 24 157/107 (124) 99 97.6 03/04/18 12:00 Trach Collar 5.0 03/04/18 12:00 5.0 03/04/18 11:16 103 20 98 Trach Collar 6.0 03/04/18 11:07 106 22 96 Trach Collar 03/04/18 08:53 100 Intake and Output 03/04/18 03/05/18 19:00 07:00 Intake Total 950 ml 700 ml Output Total 700 ml 240 ml Balance 250 ml 460 ml IV Total 100 ml 100 ml Tube Feeding 600 ml 550 ml Other 250 ml 50 ml Output Urine Total 600 ml Stool Total 100 ml 240 ml # Voids 2 Objective morbidly obese, PEG, trach HEENT: atraumatic Respiratory/Chest: lungs clear Cardiovascular: normal rate Abdomen: soft, non tender Laboratory Tests 03/05/18 04:00: White Blood Count 7.1, Red Blood Count 3.84L, Hemoglobin 9.8L, Hematocrit 31.6L , Mean Corpuscular Volume 82, Mean Corpuscular Hemoglobin 25.5L, Mean Corpuscular Hemoglobin Concent 30.9L, Red Cell Distribution Width 14.4, Platelet Count 438, Mean Platelet Volume 4.8L, Neutrophils (%) (Auto) 55.3, Lymphocytes (%) (Auto) 30.6, Monocytes (%) (Auto) 8.2, Eosinophils (%) (Auto) 4.5H, Basophils (%) (Auto) 1.4, Sodium Level 136, Potassium Level 4.8, Chloride Level 102, Carbon Dioxide Level 28, Anion Gap 6, Blood Urea Nitrogen 23H, Creatinine 0.9, Estimat Glomerular Filtration Rate , Glucose Level 131H, Calcium Level 9.7, Total Bilirubin 0.2, Aspartate Amino Transf (AST/SGOT) 16, Alanine Aminotransferase (ALT/SGPT) 8L, Alkaline Phosphatase 80, Total Protein 7.7, Albumin 2.4L, Globulin 5.3, Albumin/Globulin Ratio 0.5L Current Medications Medications (Trade) Dose Ordered Sig/Roro Route PRN Reason Start Time Stop Time Status Last Admin Dose Admin Acetaminophen (Tylenol) 650 mg Q4H PRN NG Fever/Headache 03/02/18 18:45 03/14/18 02:44 Albuterol/ Ipratropium (Albuterol/ Ipratropium) 3 ml Q4HRT HHN 03/04/18 11:00 03/09/18 10:59 03/05/18 07:29 Amlodipine Besylate (Norvasc) 5 mg Q12H ORAL 03/04/18 21:00 04/03/18 20:59 03/04/18 21:47 Bisacodyl (Dulcolax) 10 mg DAILYPRN PRN RECTAL Constipation 03/02/18 20:15 03/16/18 19:14 Carbidopa/Levodopa (Sinemet 25/100) 1.5 tab THREE TIMES A DAY ORAL 03/02/18 18:15 03/14/18 12:59 03/04/18 17:55 Cefepime HCl 2 gm/ Dextrose 100 ml @ 200 mls/hr Q24H IVPB 03/02/18 20:00 03/09/18 19:59 03/04/18 20:00 Cinacalcet (Sensipar) 30 mg DAILY ORAL 03/03/18 09:00 03/15/18 08:59 03/04/18 08:43 Clonidine HCl (Catapres Tab) 0.1 mg Q4H PRN ORAL For SBP>170 03/02/18 19:00 03/23/18 18:59 Diphenhydramine HCl (Benadryl) 25 mg Q4H PRN ORAL Itching 03/02/18 19:00 03/29/18 18:59 03/04/18 23:55 Fluconazole/ Sodium Chloride 100 ml @ 100 mls/hr Q24H IV 03/05/18 12:00 03/08/18 11:59 Insulin Aspart (NovoLOG) 4 units NOVOTIAC SUBQ 03/03/18 06:30 03/14/18 11:49 03/05/18 06:14 Lansoprazole (Prevacid) 30 mg ACBREAKFAST NG 03/03/18 06:30 03/14/18 06:29 03/05/18 06:09 Losartan Potassium (Cozaar) 100 mg DAILY ORAL 03/05/18 09:00 04/04/18 08:59 Metoclopramide HCl (Reglan) 10 mg Q6H PRN IVP Nausea & Vomiting 03/02/18 19:00 03/30/18 18:59 03/03/18 08:49 Metronidazole (Flagyl) 500 mg EVERY 8 HOURS ORAL 03/02/18 22:00 03/09/18 21:59 03/05/18 06:09 Ondansetron HCl (Zofran) 4 mg Q4H PRN IVP Nausea & Vomiting 03/02/18 19:00 03/15/18 18:59 03/03/18 06:55 Polyethylene Glycol (Miralax) 17 gm DAILYPRN PRN ORAL Constipation 03/02/18 20:00 03/22/18 19:59 Potassium Chloride (K-Dur) 20 meq TWICE A DAY NGT 03/02/18 20:00 03/18/18 19:59 03/04/18 17:55 Gómez Maots MD Mar 05, 2018 08:45
[2018-03-05] MEDS ORDERED: Losartan 50mg tab ORAL SCH (09:00)
[2018-03-05] MEDS: Sensipar 30mg Tab ORAL SCH (09:35)
[2018-03-05] MEDS: Levodopa/Carbidopa 25/100 tab ORAL SCH (09:36)
--- NOTE | 2018-03-05 11:57 | Diagnostic Imaging Report ---
Indication: Dyspnea Technique: One view of the chest Comparison: 03/02/2018 Findings: Tracheostomy, distal tracheal stent again demonstrated. There is persistent retrocardiac consolidation and likely left-sided pleural fluid. Hazy opacity in the right lung is largely resolved. Impression: Resolved right lung infiltrate, over 3 days Persistent left basilar pleural fluid and parenchymal consolidation
[2018-03-05] MEDS: Levodopa/Carbidopa 25/100 tab GT SCH ×2 (12:38→17:34)
[2018-03-05 12:50] VITALS: BP 129/76
--- NOTE | 2018-03-05 14:10 | General Progress Note ---
Assessment/Plan Assessment/Plan Assessment - respiratory failure - s/p trach - s/p tracheal stent - s/p PEG - anemia, OB (-) x 3 - diarrhea, possibly TF related Recommendations - Continue TF - PTsST eval - elemental TF to reduce diarrhea - follow labs - [facility] Subjective Allergies: Coded Allergies: No Known Allergies (Unverified , 01/11/14) Subjective seen early this am more tired ST eval noted tolerating TF Objective Last 24 Hour Vital Signs Date Time Temp Pulse Resp B/P (MAP) Pulse Ox O2 Delivery O2 Flow Rate FiO2 03/05/18 13:16 T-piece 6.0 28 03/05/18 13:15 97 T-piece 6.0 28 03/05/18 12:50 98.0 103 26 129/76 (93) 96 98.0 03/05/18 12:12 104 03/05/18 12:00 Trach Collar 5.0 03/05/18 12:00 5.0 28 03/05/18 11:13 92 22 97 Trach Collar 6.0 03/05/18 11:03 77 18 97 Trach Collar 6.0 03/05/18 09:38 94 128/72 03/05/18 09:36 128/72 03/05/18 09:05 95 03/05/18 08:00 5.0 28 03/05/18 08:00 Trach Collar 5.0 03/05/18 08:00 94 03/05/18 08:00 97.9 102 24 128/72 (90) 95 97.9 03/05/18 07:40 95 20 95 Trach Collar 6.0 03/05/18 07:32 T-piece 6.0 03/05/18 07:32 94 T-piece 6.0 03/05/18 07:30 93 20 94 Trach Collar 6.0 03/05/18 04:00 105 03/05/18 04:00 97.8 107 22 157/88 (111) 99 97.8 03/05/18 04:00 Trach Collar 5.0 03/05/18 04:00 5.0 03/05/18 02:34 102 22 99 Trach Collar 6.0 03/05/18 02:30 101 18 94 Trach Collar 6.0 03/05/18 00:59 95 T-piece 6.0 18 00:59 T-piece 6.0 28 03/05/18 00:00 5.0 28 03/05/18 00:00 Trach Collar 5.0 03/05/18 00:00 107 20 98 03/05/18 00:00 108 03/04/18 23:29 104 22 98 Trach Collar 6.0 26 03/04/18 23:20 109 20 95 Trach Collar 6.0 03/04/18 21:47 107 148/73 03/04/18 20:00 107 03/04/18 20:00 5.0 28 03/04/18 20:00 Trach Collar 5.0 03/04/18 20:00 97.3 107 23 148/73 (98) 100 97.3 03/04/18 19:11 94 T-piece 6.0 03/04/18 19:11 99 20 97 Trach Collar 6.0 03/04/18 19:11 T-piece 6.0 28 03/04/18 19:05 101 22 94 Trach Collar 6.0 28 03/04/18 16:00 111 03/04/18 16:00 Trach Collar 5.0 03/04/18 16:00 97.6 112 21 152/97 (115) 100 97.6 03/04/18 16:00 5.0 28 03/04/18 15:57 109 20 97 Trach Collar 6.0 03/04/18 15:49 107 20 96 Trach Collar 6.0 28 Intake and Output 03/04/18 03/05/18 19:00 07:00 Intake Total 950 ml 700 ml Output Total 700 ml 240 ml Balance 250 ml 460 ml IV Total 100 ml 100 ml Tube Feeding 600 ml 550 ml Other 250 ml 50 ml Output Urine Total 600 ml Stool Total 100 ml 240 ml # Voids 2 Laboratory Tests 03/05/18 04:00: White Blood Count 7.1, Red Blood Count 3.84L, Hemoglobin 9.8L, Hematocrit 31.6L , Mean Corpuscular Volume 82, Mean Corpuscular Hemoglobin 25.5L, Mean Corpuscular Hemoglobin Concent 30.9L, Red Cell Distribution Width 14.4, Platelet Count 438, Mean Platelet Volume 4.8L, Neutrophils (%) (Auto) 55.3, Lymphocytes (%) (Auto) 30.6, Monocytes (%) (Auto) 8.2, Eosinophils (%) (Auto) 4.5H, Basophils (%) (Auto) 1.4, Sodium Level 136, Potassium Level 4.8, Chloride Level 102, Carbon Dioxide Level 28, Anion Gap 6, Blood Urea Nitrogen 23H, Creatinine 0.9, Estimat Glomerular Filtration Rate , Glucose Level 131H, Calcium Level 9.7, Total Bilirubin 0.2, Aspartate Amino Transf (AST/SGOT) 16, Alanine Aminotransferase (ALT/SGPT) 8L, Alkaline Phosphatase 80, Total Protein 7.7, Albumin 2.4L, Globulin 5.3, Albumin/Globulin Ratio 0.5L Height (Feet): 5 Height (Inches): 6.00 Weight (Pounds): 264 Objective WDWN NCAT Neck: (+) trach CTA RRR Abd Soft ND NT, (+) GT no edema neuro: awake and alert Nell Gabriel MD Mar 05, 2018 14:10
[2018-03-05 16:00] VITALS: BP 122/78
[2018-03-05] MEDS ORDERED: Miralax 17gm pkt GT PRN (16:15)
[2018-03-05] MEDS ORDERED: Acetaminophen 650mg/20.3ml GT PRN (16:15)
[2018-03-05] MEDS: DiphenhydrAMINE 25mg/10ml Elixir GT PRN (19:53)
[2018-03-05 20:00] VITALS: BP 124/84
[2018-03-05] MEDS: Metoclopramide 10mg/2ml Inj IVP PRN (20:33)
[2018-03-05] MEDS: metroNIDAZOLE 500mg tab GT SCH (21:36)
[2018-03-06] VITALS: BP 115/74
[2018-03-06] MEDS: DiphenhydrAMINE 25mg/10ml Elixir GT PRN ×2 (01:24→22:59)
[2018-03-06] MEDS: Albuterol/Ipratropium 3ml neb HHN SCH ×6 (03:06→23:15)
[2018-03-06 04:00] VITALS: BP_SYST 94; BP_SYST 96; BP_DIAS 50; BP_DIAS 61; BP_DIAS 91
[2018-03-06 05:02] LABS: BASOPHILS % (AUTO) 1.2 % (0.0-2.0); EOSINOPHILS % (AUTO) 4.9 % (0.0-3.0); HEMATOCRIT 31.7 % (37.0-47.0); HEMOGLOBIN 10.2 G/DL (12.0-16.0); LYMPHOCYTES % (AUTO) 27.2 % (20.0-45.0); MEAN CORPUSCULAR VOLUME 82 FL (80-99); MONOCYTES % (AUTO) 7.7 % (1.0-10.0); PLATELET COUNT 440 K/UL (150-450); RED BLOOD COUNT 3.85 M/UL (4.20-5.40); RED CELL DISTRIBUTION WIDTH 14.2 % (11.6-14.8); WHITE BLOOD COUNT 7.5 K/UL (4.8-10.8)
[2018-03-06 05:12] LABS: ANION GAP 6 mmol/L (5-15); BLOOD UREA NITROGEN 24 mg/dL (7-18); CALCIUM 10.7 MG/DL (8.5-10.1); CARBON DIOXIDE 27 MMOL/L (21-32); CHLORIDE 103 MMOL/L (98-107); POTASSIUM 4.6 MMOL/L (3.5-5.1); SODIUM 136 MMOL/L (136-145)
[2018-03-06] MEDS: metroNIDAZOLE 500mg tab GT SCH ×3 (05:53→21:34)
[2018-03-06] MEDS: NovoLOG Insulin Flexpen SUBQ SCH ×3 (05:55→17:51)
[2018-03-06 08:00] VITALS: BP 139/81
[2018-03-06] MEDS: Levodopa/Carbidopa 25/100 tab GT SCH ×3 (08:42→22:53)
--- NOTE | 2018-03-06 08:53 | Diagnostic Imaging Report ---
EXAM: XR Chest, 1 View CLINICAL HISTORY: INFECT TECHNIQUE: Frontal view of the chest. COMPARISON: March 05, 2018. FINDINGS: Lungs: Low lung volumes. Tracheostomy and tracheal stent again noted. Persistent left lung base infiltrate. Pleural space: Suspected small left effusion. No pneumothorax. Heart: Unremarkable. No cardiomegaly. Mediastinum: Unremarkable. Bones/joints: Unremarkable. IMPRESSION: Persistent left lung base infiltrate/atelectasis and small left effusion.
[2018-03-06] MEDS: Losartan 50mg tab GT SCH (08:57)
[2018-03-06] MEDS ORDERED: Sensipar 30mg Tab GT SCH (09:00)
[2018-03-06 12:00] VITALS: BP 114/69
--- NOTE | 2018-03-06 12:26 | General Progress Note ---
Assessment/Plan Assessment/Plan Assessment - respiratory failure - s/p trach - s/p tracheal stent - s/p PEG - parkinsons - anemia, OB (-) x 3 - diarrhea, possibly TF related Recommendations - Continue TF - PT & ST eval - elemental TF to reduce diarrhea - follow labs - [facility] - change timing of Cinemet doses Subjective Allergies: Coded Allergies: No Known Allergies (Unverified , 01/11/14) Subjective speaking valve wants parkinsons meds given at 7, 3, 11 tolerating TF Objective Last 24 Hour Vital Signs Date Time Temp Pulse Resp B/P (MAP) Pulse Ox O2 Delivery O2 Flow Rate FiO2 03/06/18 10:58 105 20 96 Trach Collar 6.0 26 03/06/18 10:47 98 20 97 Trach Collar 6.0 28 03/06/18 10:11 96 139/81 03/06/18 09:18 96 03/06/18 08:57 139/81 03/06/18 08:00 Trach Collar 5.0 03/06/18 08:00 97.7 102 18 139/81 (100) 94 97.7 03/06/18 08:00 5.0 28 03/06/18 08:00 94 03/06/18 06:49 96 20 99 Trach Collar 6.0 03/06/18 06:41 T-piece 6.0 03/06/18 06:40 95 T-piece 6.0 03/06/18 06:38 90 20 95 Trach Collar 6.0 28 03/06/18 04:00 5.0 28 03/06/18 04:00 97.9 74 18 94/50 (65) 92 97.9 03/06/18 04:00 Trach Collar 5.0 03/06/18 03:52 75 03/06/18 03:07 71 20 98 Trach Collar 6.0 03/06/18 03:00 69 18 95 Trach Collar 6.0 03/06/18 00:54 T-piece 6.0 03/06/18 00:54 94 T-piece 6.0 03/06/18 00:00 98.4 98 18 115/74 (88) 95 98.4 03/06/18 00:00 Trach Collar 5.0 03/05/18 23:42 101 03/05/18 22:55 103 18 98 Trach Collar 6.0 03/05/18 22:50 104 20 95 Trach Collar 6.0 28 03/05/18 21:37 108 124/84 03/05/18 20:00 5.0 28 03/05/18 20:00 98.0 108 20 124/84 (97) 96 98.0 03/05/18 20:00 Trach Collar 5.0 03/05/18 20:00 98.0 108 20 124/84 (97) 96 98.0 03/05/18 19:48 106 03/05/18 19:05 101 20 97 Trach Collar 6.0 26 03/05/18 19:05 T-piece 6.0 28 03/05/18 19:05 95 T-piece 6.0 28 03/05/18 19:00 109 22 95 Trach Collar 6.0 28 03/05/18 16:00 105 03/05/18 16:00 Trach Collar 5.0 03/05/18 16:00 98.3 102 19 122/78 (93) 98 98.3 03/05/18 16:00 5.0 28 03/05/18 15:44 93 20 98 Trach Collar 6.0 26 03/05/18 15:34 103 20 96 Trach Collar 6.0 28 03/05/18 13:16 T-piece 6.0 28 03/05/18 13:15 97 T-piece 6.0 28 03/05/18 12:50 98.0 103 26 129/76 (93) 96 98.0 Intake and Output 03/05/18 03/06/18 19:00 07:00 Intake Total 670 ml 695 ml Output Total 300 ml 100 ml Balance 370 ml 595 ml IV Total 100 ml Tube Feeding 550 ml 415 ml Other 120 ml 180 ml Output Urine Total 200 ml 100 ml Stool Total 100 ml # Bowel Movements 50 Laboratory Tests 03/06/18 04:20: White Blood Count 7.5, Red Blood Count 3.85L, Hemoglobin 10.2L, Hematocrit 31.7L , Mean Corpuscular Volume 82, Mean Corpuscular Hemoglobin 26.4L, Mean Corpuscular Hemoglobin Concent 32.1, Red Cell Distribution Width 14.2, Platelet Count 440, Mean Platelet Volume 5.4L, Neutrophils (%) (Auto) 59.0, Lymphocytes ( %) (Auto) 27.2, Monocytes (%) (Auto) 7.7, Eosinophils (%) (Auto) 4.9H, Basophils (%) (Auto) 1.2, Sodium Level 136, Potassium Level 4.6, Chloride Level 103, Carbon Dioxide Level 27, Anion Gap 6, Blood Urea Nitrogen 24H, Creatinine 1.0, Estimat Glomerular Filtration Rate , Glucose Level 148H, Hemoglobin A1c 6.4H, Calcium Level 10.7H Height (Feet): 5 Height (Inches): 6.00 Weight (Pounds): 265 Objective WDWN NCAT Neck: (+) trach CTA RRR Abd Soft ND NT, (+) GT no edema neuro: awake and alert Nell Gabriel MD Mar 06, 2018 12:26
[2018-03-06] MEDS ORDERED: Tubing IV Secondary IV ONE (14:17)
[2018-03-06] MEDS ORDERED: NS 275ml ONE (14:17)
[2018-03-06] MEDS ORDERED: Sterile Water Irrig 1000ml IRRIG ONE (14:17)
[2018-03-06 16:00] VITALS: BP 124/65
--- NOTE | 2018-03-06 17:09 | Infectious Diseases Prog Note ---
Assessment/Plan Assessment/Plan ASSESSMENT AND PLAN: 1. sepsis, leukocytosis, pseudomonas pna, e.coli uti, fungal uti, fungemia risk , lgt, diarrhea, c.diff. negative, respiratory failure, s/p trach - leukocytosis resolved, chest x-ray stable - cefepime and flagyl, diflucan x 5 days to complete at least 2 week treatment course - monitor labs and chest x-ray, ct abdomen and pelvis noted - d/w daughter 2. Hypertension. Blood pressure treatment per primary, Dr. Matos. 3. Respiratory failure, on vent, weaning per Dr. Matos. 4. Rectal tube and diarrhea. 5. Mistry. 6. Clostridium difficile negative. 7. Parkinson disease. 8. Dysphagia. 9. Aspiration risk. 10. 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 11. History of anemia. 12. Nephrolithiasis. 13. Meningioma. 14. History of breast cancer. 15. History of lumpectomy. 16. Obesity. 17. Obesity hypoventilation syndrome. 18. No known allergies. 19. Social history negative. 20. MAR was noted. 21. Case discussed with RN. 22. Family history noncontributory. 23. Continue treatments per primary consultants. 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 Subjective Constitutional: Reports: fatigue, other - no fevers ; Denies: fever HEENT: Reports: congestion - mild Respiratory: Reports: shortness of breath - mild Cardiovascular: Denies: chest pain Gastrointestinal/Abdominal: Reports: diarrhea, other - + rectal tube ; Denies: nausea, vomiting Genitourinary: Reports: other - no mistry Neurologic: Denies: headache Psychiatric: Denies: depression Skin: Denies: rash Hematologic: Denies: bleeding Musculoskeletal: Denies: pain Allergies: Coded Allergies: No Known Allergies (Unverified , 01/11/14) Objective Vital Signs Last 24 Hour Vital Signs Date Time Temp Pulse Resp B/P (MAP) Pulse Ox O2 Delivery O2 Flow Rate FiO2 03/06/18 16:00 5.0 28 03/06/18 14:49 102 20 97 Trach Collar 6.0 03/06/18 14:48 95 20 97 Trach Collar 6.0 28 03/06/18 13:19 96 T-piece 6.0 28 03/06/18 13:19 T-piece 6.0 03/06/18 12:00 5.0 28 03/06/18 12:00 Trach Collar 5.0 03/06/18 12:00 98.1 104 20 114/69 (84) 94 98.1 03/06/18 12:00 108 03/06/18 10:58 105 20 96 Trach Collar 6.0 03/06/18 10:47 98 20 97 Trach Collar 6.0 28 03/06/18 10:11 96 139/81 03/06/18 09:18 96 03/06/18 08:57 139/81 03/06/18 08:00 Trach Collar 5.0 03/06/18 08:00 97.7 102 18 139/81 (100) 94 97.7 03/06/18 08:00 5.0 28 03/06/18 08:00 94 03/06/18 06:49 96 20 99 Trach Collar 6.0 03/06/18 06:41 T-piece 6.0 28 03/06/18 06:40 95 T-piece 6.0 03/06/18 06:38 90 20 95 Trach Collar 6.0 03/06/18 04:00 5.0 28 03/06/18 04:00 97.9 74 18 94/50 (65) 92 97.9 03/06/18 04:00 Trach Collar 5.0 03/06/18 03:52 75 03/06/18 03:07 71 20 98 Trach Collar 6.0 03/06/18 03:00 69 18 95 Trach Collar 6.0 03/06/18 00:54 T-piece 6.0 03/06/18 00:54 94 T-piece 6.0 03/06/18 00:00 98.4 98 18 115/74 (88) 95 98.4 03/06/18 00:00 Trach Collar 5.0 03/05/18 23:42 101 03/05/18 22:55 103 18 98 Trach Collar 6.0 03/05/18 22:50 104 20 95 Trach Collar 6.0 03/05/18 21:37 108 124/84 03/05/18 20:00 5.0 28 03/05/18 20:00 98.0 108 20 124/84 (97) 96 98.0 03/05/18 20:00 Trach Collar 5.0 03/05/18 20:00 98.0 108 20 124/84 (97) 96 98.0 03/05/18 19:48 106 03/05/18 19:05 101 20 97 Trach Collar 6.0 26 03/05/18 19:05 T-piece 6.0 28 03/05/18 19:05 95 T-piece 6.0 28 03/05/18 19:00 109 22 95 Trach Collar 6.0 28 Height (Feet): 5 Height (Inches): 6.00 Weight (Pounds): 265 General Appearance: no acute distress HEENT: normocephalic, atraumatic, anicteric, no JVD, status post trach, tonsils swollen - no vent Respiratory/Chest: crackles/rales, rhonchi - bilaterally Cardiovascular: normal rate, regular rhythm, no gallop/murmur, no JVD Abdomen: normal bowel sounds, soft, non tender, no organomegaly, non distended , other - + rectal tube with diarrhea Genitourinary: other - no mistry Extremities: no cyanosis Skin: no rash Neurologic/Psychiatric: phd intern II-XII grossly normal, alert, responsive Lymphatic: no neck adenopathy Musculoskeletal: no effusion Objective Chest -x -ray - 02/26 - Findings: Increased consolidation is seen in the right perihilar region and right lung base. There is increased consolidation of the left lung base. There is generalized mild interstitial congestion again demonstrated. There is probably some pleural fluid on the left. The heart is borderline enlarged. The aorta is tortuous. Again demonstrated are endotracheal and nasogastric tube and a mediastinal stent. Impression: Worsening bilateral basilar infiltrates versus edema, over 2 days Chest x-ray - 02/28 - INDICATION: Infection COMPARISON: Chest x-ray dated 02/26/18 FINDINGS: Single frontal view demonstrates prominent heart size. Nasogastric tube below diaphragm. Tracheostomy. Aortic stent. Mild bilateral lower lobe opacities, right greater than left. No pleural effusions. The visualized osseous structures are within normal limits. IMPRESSION: No significant change. Tubes and lines as outlined above. Mild bilateral lower lobe opacity, right greater than left. Chest x-ray - 03/02 - IMPRESSION: * Interval removal of enteric tube * Tracheostomy tube unchanged. Unchanged mediastinal stent, likely tracheal stent. * Persistent but slightly decreased right base opacities. * Left Basilar/retrocardiac opacities unchanged. Small left pleural effusion not excluded. CT abdomen and pelvis: Impression: Evidence of satisfactory gastrostomy placement, without evidence of complication. Satisfactory position, no evidence of adjacent fluid collection, and no evidence of traversal of intervening vital structures Mural gallbladder calcifications, consistent with so-called porcelain gallbladder 6 mm nonobstructive left renal calyceal calculus 03/06 - chest x-ray - FINDINGS: Lungs: Low lung volumes. Tracheostomy and tracheal stent again noted. Persistent left lung base infiltrate. Pleural space: Suspected small left effusion. No pneumothorax. Heart: Unremarkable. No cardiomegaly. Mediastinum: Unremarkable. Bones/joints: Unremarkable. IMPRESSION: Persistent left lung base infiltrate/atelectasis and small left effusion. Microbiology Date/Time Source Procedure Growth Status 02/26/18 05:45 Blood Blood Culture - Final NO GROWTH AFTER 5 DAYS Complete 02/26/18 14:17 Throat Gram Stain - Final Complete 02/26/18 14:17 Aerobic Culture - Final Pseudomonas Aeruginosa Complete 02/21/18 18:30 Stool Clostridium difficile Toxin Assay - Final Complete 02/26/18 10:00 Indwelling Cath Urine Culture - Final Lorena Albicans Complete 02/26/18 14:17 Trachea Swab Anaerobic Culture - Final NO ANAEROBES ISOLATED Complete Laboratory Tests Test 03/06/18 04:20 White Blood Count 7.5 K/UL (4.8-10.8) Red Blood Count 3.85 M/UL (4.20-5.40) L Hemoglobin 10.2 G/DL (12.0-16.0) L Hematocrit 31.7 % (37.0-47.0) L Mean Corpuscular Volume 82 FL (80-99) Mean Corpuscular Hemoglobin 26.4 PG (27.0-31.0) L Mean Corpuscular Hemoglobin Concent 32.1 G/DL (32.0-36.0) Red Cell Distribution Width 14.2 % (11.6-14.8) Platelet Count 440 K/UL (150-450) Mean Platelet Volume 5.4 FL (6.5-10.1) L Neutrophils (%) (Auto) 59.0 % (45.0-75.0) Lymphocytes (%) (Auto) 27.2 % (20.0-45.0) Monocytes (%) (Auto) 7.7 % (1.0-10.0) Eosinophils (%) (Auto) 4.9 % (0.0-3.0) H Basophils (%) (Auto) 1.2 % (0.0-2.0) Sodium Level 136 MMOL/L (136-145) Potassium Level 4.6 MMOL/L (3.5-5.1) Chloride Level 103 MMOL/L (98-107) Carbon Dioxide Level 27 MMOL/L (21-32) Anion Gap 6 mmol/L (5-15) Blood Urea Nitrogen 24 mg/dL (7-18) H Creatinine 1.0 MG/DL (0.55-1.30) Estimat Glomerular Filtration Rate mL/min (>60) Glucose Level 148 MG/DL (74-106) H Hemoglobin A1c 6.4 % (4.3-6.0) H Calcium Level 10.7 MG/DL (8.5-10.1) H Current Medications Medications (Trade) Dose Ordered Sig/Roro Route PRN Reason Start Time Stop Time Status Last Admin Dose Admin Acetaminophen (Tylenol) 650 mg Q4H PRN GT Fever/Headache 03/05/18 16:15 03/14/18 02:44 Albuterol/ Ipratropium (Albuterol/ Ipratropium) 3 ml Q4HRT HHN 03/04/18 11:00 03/09/18 10:59 03/06/18 14:48 Amlodipine Besylate (Norvasc) 5 mg Q12H GT 03/05/18 21:00 04/03/18 20:59 03/06/18 10:11 Bisacodyl (Dulcolax) 10 mg DAILYPRN PRN RECTAL Constipation 03/02/18 20:15 03/16/18 19:14 Carbidopa/Levodopa (Sinemet 25/100) 1.5 tab 0700,1500,2300 GT 03/06/18 15:00 04/05/18 14:59 03/06/18 14:36 Cefepime HCl 2 gm/ Dextrose 100 ml @ 200 mls/hr Q24H IVPB 03/02/18 20:00 03/09/18 19:59 03/05/18 20:33 Clonidine HCl (Catapres Tab) 0.1 mg Q4H PRN GT For SBP>170 03/05/18 16:15 03/23/18 18:59 Diphenhydramine HCl (Benadryl) 25 mg Q4H PRN GT Itching 03/05/18 16:15 04/04/18 16:14 03/06/18 01:24 Fluconazole/ Sodium Chloride 100 ml @ 100 mls/hr Q24H IV 03/05/18 12:00 03/08/18 11:59 03/06/18 12:12 Insulin Aspart (NovoLOG) 4 units NOVOTIAC SUBQ 03/03/18 06:30 03/14/18 11:49 03/06/18 12:08 Lansoprazole (Prevacid) 30 mg ACBREAKFAST GT 03/06/18 06:30 03/14/18 06:29 03/06/18 05:53 Losartan Potassium (Cozaar) 100 mg DAILY GT 03/06/18 09:00 04/04/18 08:59 03/06/18 08:57 Metoclopramide HCl (Reglan) 10 mg Q6H PRN IVP Nausea & Vomiting 03/02/18 19:00 03/30/18 18:59 03/05/18 20:33 Metronidazole (Flagyl) 500 mg EVERY 8 HOURS GT 03/05/18 22:00 03/09/18 21:59 03/06/18 14:36 Ondansetron HCl (Zofran) 4 mg Q4H PRN IVP Nausea & Vomiting 03/02/18 19:00 03/15/18 18:59 03/03/18 06:55 Polyethylene Glycol (Miralax) 17 gm DAILYPRN PRN GT Constipation 03/05/18 16:15 03/22/18 19:59 Potassium Chloride (K-Dur) 20 meq TWICE A DAY GT 03/05/18 18:00 03/18/18 19:59 03/06/18 08:41 Celia Capone MD Mar 06, 2018 17:09
--- NOTE | 2018-03-06 18:27 | Pulmonolgy Critical Care Note ---
Critical Care - Asmt/Plan Assessment/Plan: 1. Acute respiratory failure, trach 2. 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 S/p trach 5. Parkinson's disease. 6. Esophageal dysmotility, PEG 7. Morbid obesity with obesity hypoventilation syndrome. 8. Hypertension w LVH 9. Nephrolithiasis and renal mass. 10. History of breast cancer 11. Diarrhea off vent x 3 d Cool aerosol tolerated well w speaking valve tube feeds per GI; swallow eval less diarrhea, dc rectal tube disc w RN BP better dc to subacute or LTAC placement when accepted 35 min of CCT spent with pt, reviewing chart discussing plan with nursing. Critical Care - Objective Last 24 Hour Vital Signs Date Time Temp Pulse Resp B/P (MAP) Pulse Ox O2 Delivery O2 Flow Rate FiO2 03/06/18 16:00 5.0 28 03/06/18 16:00 95 03/06/18 16:00 Trach Collar 5.0 03/06/18 14:49 102 20 97 Trach Collar 6.0 26 03/06/18 14:48 95 20 97 Trach Collar 6.0 28 03/06/18 13:19 96 T-piece 6.0 28 03/06/18 13:19 T-piece 6.0 28 03/06/18 12:00 5.0 28 03/06/18 12:00 Trach Collar 5.0 03/06/18 12:00 98.1 104 20 114/69 (84) 94 98.1 03/06/18 12:00 108 03/06/18 10:58 105 20 96 Trach Collar 6.0 03/06/18 10:47 98 20 97 Trach Collar 6.0 28 03/06/18 10:11 96 139/81 03/06/18 09:18 96 03/06/18 08:57 139/81 03/06/18 08:00 Trach Collar 5.0 03/06/18 08:00 97.7 102 18 139/81 (100) 94 97.7 03/06/18 08:00 5.0 28 03/06/18 08:00 94 03/06/18 06:49 96 20 99 Trach Collar 6.0 26 03/06/18 06:41 T-piece 6.0 28 03/06/18 06:40 95 T-piece 6.0 28 03/06/18 06:38 90 20 95 Trach Collar 6.0 28 03/06/18 04:00 5.0 28 03/06/18 04:00 97.9 74 18 94/50 (65) 92 97.9 03/06/18 04:00 Trach Collar 5.0 03/06/18 03:52 75 03/06/18 03:07 71 20 98 Trach Collar 6.0 03/06/18 03:00 69 18 95 Trach Collar 6.0 28 03/06/18 00:54 T-piece 6.0 03/06/18 00:54 94 T-piece 6.0 03/06/18 00:00 98.4 98 18 115/74 (88) 95 98.4 03/06/18 00:00 Trach Collar 5.0 03/05/18 23:42 101 03/05/18 22:55 103 18 98 Trach Collar 6.0 03/05/18 22:50 104 20 95 Trach Collar 6.0 03/05/18 21:37 108 124/84 03/05/18 20:00 5.0 28 03/05/18 20:00 98.0 108 20 124/84 (97) 96 98.0 03/05/18 20:00 Trach Collar 5.0 03/05/18 20:00 98.0 108 20 124/84 (97) 96 98.0 03/05/18 19:48 106 03/05/18 19:05 101 20 97 Trach Collar 6.0 03/05/18 19:05 T-piece 6.0 03/05/18 19:05 95 T-piece 6.0 03/05/18 19:00 109 22 95 Trach Collar 6.0 28 Status: awake Condition: improving Lungs: rhonchi Heart: HR/BP stable Abdomen: soft, non-tender Extremities: edema Decubiti: location Accucheck: 142 Blood Sugars: BS controlled Critical Care - Subjective ROS Limited/Unobtainable: Yes Condition: improving EKG Rhythm: Sinus Rhythm Vent Tidal Volume: 500 Sputum Amount: Scant Tube Feeding Amount: 50 I&O: Intake and Output 03/05/18 03/06/18 19:00 07:00 Intake Total 670 ml 695 ml Output Total 300 ml 100 ml Balance 370 ml 595 ml IV Total 100 ml Tube Feeding 550 ml 415 ml Other 120 ml 180 ml Output Urine Total 200 ml 100 ml Stool Total 100 ml # Bowel Movements 50 Subjective: Off vent secretions noted no cp or bleeding positive uop no new cxr awake follows commands improved CXR: Persistent left lung base infiltrate/atelectasis and small left effusion. Rosa Darling DO Mar 06, 2018 18:27
[2018-03-06 20:00] VITALS: BP 129/62
[2018-03-07] VITALS: BP 150/84
[2018-03-07] MEDS: Albuterol/Ipratropium 3ml neb HHN SCH ×6 (02:10→23:28)
[2018-03-07] MEDS: DiphenhydrAMINE 25mg/10ml Elixir GT PRN (03:20)
[2018-03-07 04:00] VITALS: BP 177/69
[2018-03-07] MEDS: metroNIDAZOLE 500mg tab GT SCH ×3 (06:39→21:00)
[2018-03-07] MEDS: Levodopa/Carbidopa 25/100 tab GT SCH ×3 (06:39→22:27)
[2018-03-07] MEDS: NovoLOG Insulin Flexpen SUBQ SCH ×3 (06:40→16:23)
[2018-03-07 08:00] VITALS: BP 148/64
[2018-03-07] MEDS: Losartan 50mg tab GT SCH (08:25)
[2018-03-07] MEDS: Metoclopramide 10mg/2ml Inj IVP PRN (08:26)
[2018-03-07 12:00] VITALS: BP 121/92
--- NOTE | 2018-03-07 14:55 | General Progress Note ---
Assessment/Plan Assessment/Plan Assessment - respiratory failure - s/p trach - s/p tracheal stent - s/p PEG - parkinsons - anemia, OB (-) x 3 - diarrhea, possibly TF related Recommendations - Continue TF - PT & ST eval - elemental TF to reduce diarrhea - follow labs - Ele[facility] HOB Subjective Allergies: Coded Allergies: No Known Allergies (Unverified , 01/11/14) Subjective no abdominal complaints tolerating TF Objective Last 24 Hour Vital Signs Date Time Temp Pulse Resp B/P (MAP) Pulse Ox O2 Delivery O2 Flow Rate FiO2 03/07/18 12:30 96 T-piece 6.0 28 03/07/18 12:30 T-piece 6.0 28 03/07/18 12:00 5.0 28 03/07/18 12:00 Trach Collar 5.0 03/07/18 12:00 80 03/07/18 12:00 97.5 101 20 121/92 (102) 96 97.5 03/07/18 11:38 92 18 98 T-piece 6.0 28 03/07/18 11:29 81 16 97 T-piece 6.0 28 03/07/18 11:29 28 03/07/18 08:40 89 148/64 03/07/18 08:25 148/64 03/07/18 08:00 5.0 28 03/07/18 08:00 84 03/07/18 08:00 Trach Collar 5.0 03/07/18 08:00 97.9 80 21 148/64 (92) 96 97.9 03/07/18 07:34 89 18 98 T-piece 6.0 28 03/07/18 07:24 T-piece 6.0 28 03/07/18 07:24 73 16 97 T-piece 6.0 28 03/07/18 07:24 97 T-piece 6.0 28 03/07/18 07:24 28 03/07/18 04:00 98.0 98 22 177/69 (105) 96 98.0 03/07/18 04:00 5.0 28 03/07/18 04:00 Trach Collar 5.0 03/07/18 03:33 103 03/07/18 02:20 101 18 100 T-piece 6.0 28 03/07/18 02:09 103 20 98 T-piece 6.0 28 03/07/18 00:00 5.0 28 03/07/18 00:00 Trach Collar 5.0 03/07/18 00:00 98.2 93 24 150/84 (106) 96 98.2 03/06/18 23:48 95 03/06/18 23:30 97 T-piece 6.0 28 03/06/18 23:30 T-piece 6.0 28 03/06/18 23:26 91 18 99 T-piece 6.0 28 03/06/18 23:15 95 22 97 T-piece 6.0 28 03/06/18 21:33 94 129/62 03/06/18 20:00 98.2 94 28 129/62 (84) 96 98.2 03/06/18 20:00 5.0 28 03/06/18 20:00 Trach Collar 5.0 03/06/18 19:45 95 20 100 T-piece 6.0 28 03/06/18 19:31 92 22 98 T-piece 6.0 28 03/06/18 19:31 T-piece 6.0 28 03/06/18 19:30 98 T-piece 6.0 28 03/06/18 19:28 90 03/06/18 18:27 03/06/18 16:00 5.0 28 03/06/18 16:00 98.2 98 19 124/65 (84) 94 98.2 03/06/18 16:00 95 03/06/18 16:00 Trach Collar 5.0 Intake and Output 03/06/18 03/07/18 19:00 07:00 Intake Total 885 ml 880 ml Output Total 1100 ml 375 ml Balance -215 ml 505 ml Free Water 100 ml IV Total 100 ml 100 ml Tube Feeding 585 ml 600 ml Other 100 ml 180 ml Output Urine Total 950 ml 75 ml Stool Total 150 ml 300 ml Height (Feet): 5 Height (Inches): 6.00 Weight (Pounds): 267 Objective WDWN NCAT Neck: (+) trach CTA RRR Abd Soft ND NT, (+) GT no edema neuro: awake and alert Nell Gabriel MD Mar 07, 2018 14:55
[2018-03-07 16:00] VITALS: BP 145/84
--- NOTE | 2018-03-07 17:18 | Pulmonology Progress Note ---
Assessment/Plan Assessment/Plan 1. Acute respiratory failure, trach 2. 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 S/p trach 5. Parkinson's disease. 6. Esophageal dysmotility, PEG 7. Morbid obesity with obesity hypoventilation syndrome. 8. Hypertension w LVH 9. Nephrolithiasis and renal mass. 10. History of breast cancer 11. Diarrhea off vent x 4 d Cool aerosol tolerated well w speaking valve tube feeds per GI; swallow eval BP better dc to subacute or LTAC placement when accepted Subjective Respiratory: Reports: productive cough Cardiovascular: Reports: no symptoms Gastrointestinal/Abdominal: Reports: no symptoms Allergies: Coded Allergies: No Known Allergies (Unverified , 01/11/14) Subjective remains on tc tolerating tf sat at edge of bed today no cp nv or bleeding requiring trach suctioning Objective Last 24 Hour Vital Signs Date Time Temp Pulse Resp B/P (MAP) Pulse Ox O2 Delivery O2 Flow Rate FiO2 03/07/18 15:56 80 18 99 T-piece 6.0 28 03/07/18 15:46 104 16 98 T-piece 6.0 28 03/07/18 15:46 28 03/07/18 12:30 96 T-piece 6.0 28 03/07/18 12:30 T-piece 6.0 28 03/07/18 12:00 5.0 28 03/07/18 12:00 Trach Collar 5.0 03/07/18 12:00 80 03/07/18 12:00 97.5 101 20 121/92 (102) 96 97.5 03/07/18 11:38 92 18 98 T-piece 6.0 28 03/07/18 11:29 81 16 97 T-piece 6.0 28 03/07/18 11:29 28 03/07/18 08:40 89 148/64 03/07/18 08:25 148/64 03/07/18 08:00 5.0 28 03/07/18 08:00 84 03/07/18 08:00 Trach Collar 5.0 03/07/18 08:00 97.9 80 21 148/64 (92) 96 97.9 03/07/18 07:34 89 18 98 T-piece 6.0 28 03/07/18 07:24 T-piece 6.0 28 03/07/18 07:24 73 16 97 T-piece 6.0 28 03/07/18 07:24 97 T-piece 6.0 28 03/07/18 07:24 28 03/07/18 04:00 98.0 98 22 177/69 (105) 96 98.0 03/07/18 04:00 5.0 28 03/07/18 04:00 Trach Collar 5.0 03/07/18 03:33 103 03/07/18 02:20 101 18 100 T-piece 6.0 28 03/07/18 02:09 103 20 98 T-piece 6.0 28 03/07/18 00:00 5.0 28 03/07/18 00:00 Trach Collar 5.0 03/07/18 00:00 98.2 93 24 150/84 (106) 96 98.2 03/06/18 23:48 95 03/06/18 23:30 97 T-piece 6.0 28 03/06/18 23:30 T-piece 6.0 28 03/06/18 23:26 91 18 99 T-piece 6.0 28 03/06/18 23:15 95 22 97 T-piece 6.0 28 03/06/18 21:33 94 129/62 03/06/18 20:00 98.2 94 28 129/62 (84) 96 98.2 03/06/18 20:00 5.0 28 03/06/18 20:00 Trach Collar 5.0 03/06/18 19:45 95 20 100 T-piece 6.0 03/06/18 19:31 92 22 98 T-piece 6.0 03/06/18 19:31 T-piece 6.0 03/06/18 19:30 98 T-piece 6.0 03/06/18 19:28 90 03/06/18 18:27 Intake and Output 03/06/18 03/07/18 19:00 07:00 Intake Total 885 ml 880 ml Output Total 1100 ml 375 ml Balance -215 ml 505 ml Free Water 100 ml IV Total 100 ml 100 ml Tube Feeding 585 ml 600 ml Other 100 ml 180 ml Output Urine Total 950 ml 75 ml Stool Total 150 ml 300 ml General Appearance: WD/WN Respiratory/Chest: rhonchi Cardiovascular: normal rate, regularly irregular, edema Abdomen: soft, non tender, no organomegaly Extremities: no cyanosis Neurologic/Psychiatric: alert Current Medications Medications (Trade) Dose Ordered Sig/Roro Route PRN Reason Start Time Stop Time Status Last Admin Dose Admin Acetaminophen (Tylenol) 650 mg Q4H PRN GT Fever/Headache 03/05/18 16:15 03/14/18 02:44 03/06/18 19:17 Albuterol/ Ipratropium (Albuterol/ Ipratropium) 3 ml Q4HRT HHN 03/04/18 11:00 03/09/18 10:59 03/07/18 15:46 Amlodipine Besylate (Norvasc) 5 mg Q12H GT 03/05/18 21:00 04/03/18 20:59 03/07/18 08:40 Bisacodyl (Dulcolax) 10 mg DAILYPRN PRN RECTAL Constipation 03/02/18 20:15 03/16/18 19:14 Carbidopa/Levodopa (Sinemet 25/100) 1.5 tab 0700,1500,2300 GT 03/06/18 15:00 04/05/18 14:59 03/07/18 08:20 Cefepime HCl 2 gm/ Dextrose 100 ml @ 200 mls/hr Q24H IVPB 03/02/18 20:00 03/09/18 19:59 03/06/18 20:26 Clonidine HCl (Catapres Tab) 0.1 mg Q4H PRN GT For SBP>170 03/05/18 16:15 03/23/18 18:59 Diphenhydramine HCl (Benadryl) 25 mg Q4H PRN GT Itching 03/05/18 16:15 04/04/18 16:14 03/07/18 03:20 Fluconazole/ Sodium Chloride 100 ml @ 100 mls/hr Q24H IV 03/07/18 12:00 03/10/18 11:59 Insulin Aspart (NovoLOG) 4 units NOVOTIAC SUBQ 03/03/18 06:30 03/14/18 11:49 03/07/18 16:23 Lansoprazole (Prevacid) 30 mg ACBREAKFAST GT 03/06/18 06:30 03/14/18 06:29 03/07/18 06:38 Losartan Potassium (Cozaar) 100 mg DAILY GT 03/06/18 09:00 04/04/18 08:59 03/07/18 08:25 Metoclopramide HCl (Reglan) 10 mg Q6H PRN IVP Nausea & Vomiting 03/02/18 19:00 03/30/18 18:59 03/07/18 08:26 Metronidazole (Flagyl) 500 mg EVERY 8 HOURS GT 03/05/18 22:00 03/09/18 21:59 03/07/18 16:19 Ondansetron HCl (Zofran) 4 mg Q4H PRN IVP Nausea & Vomiting 03/02/18 19:00 03/15/18 18:59 03/03/18 06:55 Polyethylene Glycol (Miralax) 17 gm DAILYPRN PRN GT Constipation 03/05/18 16:15 03/22/18 19:59 Potassium Chloride (K-Dur) 20 meq TWICE A DAY GT 03/05/18 18:00 03/18/18 19:59 03/06/18 17:39 Current Medications Medications (Trade) Dose Ordered Sig/Roro Route PRN Reason Start Time Stop Time Status Last Admin Dose Admin Acetaminophen (Tylenol) 650 mg Q4H PRN GT Fever/Headache 03/05/18 16:15 03/14/18 02:44 03/06/18 19:17 Albuterol/ Ipratropium (Albuterol/ Ipratropium) 3 ml Q4HRT HHN 03/04/18 11:00 03/09/18 10:59 03/07/18 15:46 Amlodipine Besylate (Norvasc) 5 mg Q12H GT 03/05/18 21:00 04/03/18 20:59 03/07/18 08:40 Bisacodyl (Dulcolax) 10 mg DAILYPRN PRN RECTAL Constipation 03/02/18 20:15 03/16/18 19:14 Carbidopa/Levodopa (Sinemet 25/100) 1.5 tab 0700,1500,2300 GT 03/06/18 15:00 04/05/18 14:59 03/07/18 08:20 Cefepime HCl 2 gm/ Dextrose 100 ml @ 200 mls/hr Q24H IVPB 03/02/18 20:00 8/14/18 19:59 03/06/18 20:26 Clonidine HCl (Catapres Tab) 0.1 mg Q4H PRN GT For SBP>170 03/05/18 16:15 03/23/18 18:59 Diphenhydramine HCl (Benadryl) 25 mg Q4H PRN GT Itching 03/05/18 16:15 04/04/18 16:14 03/07/18 03:20 Fluconazole/ Sodium Chloride 100 ml @ 100 mls/hr Q24H IV 03/07/18 12:00 03/10/18 11:59 Insulin Aspart (NovoLOG) 4 units NOVOTIAC SUBQ 03/03/18 06:30 03/14/18 11:49 03/07/18 16:23 Lansoprazole (Prevacid) 30 mg ACBREAKFAST GT 03/06/18 06:30 03/14/18 06:29 03/07/18 06:38 Losartan Potassium (Cozaar) 100 mg DAILY GT 03/06/18 09:00 04/04/18 08:59 03/07/18 08:25 Metoclopramide HCl (Reglan) 10 mg Q6H PRN IVP Nausea & Vomiting 03/02/18 19:00 03/30/18 18:59 03/07/18 08:26 Metronidazole (Flagyl) 500 mg EVERY 8 HOURS GT 03/05/18 22:00 03/09/18 21:59 03/07/18 16:19 Ondansetron HCl (Zofran) 4 mg Q4H PRN IVP Nausea & Vomiting 03/02/18 19:00 03/15/18 18:59 03/03/18 06:55 Polyethylene Glycol (Miralax) 17 gm DAILYPRN PRN GT Constipation 03/05/18 16:15 03/22/18 19:59 Potassium Chloride (K-Dur) 20 meq TWICE A DAY GT 03/05/18 18:00 03/18/18 19:59 03/06/18 17:39 Rosa Darling DO Mar 07, 2018 17:18
[2018-03-07 20:00] VITALS: BP_SYST 123; BP_SYST 130; BP_DIAS 62; BP_DIAS 82
[2018-03-08] VITALS: BP_SYST 100; BP_SYST 108; BP_DIAS 63
[2018-03-08] MEDS: Albuterol/Ipratropium 3ml neb HHN SCH ×6 (03:33→23:21)
[2018-03-08 04:00] VITALS: BP 126/72
[2018-03-08 04:55] LABS: ANION GAP 9 mmol/L (5-15); BLOOD UREA NITROGEN 31 mg/dL (7-18); CALCIUM 10.6 MG/DL (8.5-10.1); CARBON DIOXIDE 25 MMOL/L (21-32); CHLORIDE 102 MMOL/L (98-107); POTASSIUM 5.3 MMOL/L (3.5-5.1); SODIUM 135 MMOL/L (136-145)
[2018-03-08] MEDS: metroNIDAZOLE 500mg tab GT SCH ×3 (06:17→21:40)
[2018-03-08] MEDS: Levodopa/Carbidopa 25/100 tab GT SCH ×3 (06:18→23:33)
[2018-03-08] MEDS: NovoLOG Insulin Flexpen SUBQ SCH ×3 (07:18→17:25)
[2018-03-08 08:00] VITALS: BP 112/71
[2018-03-08 08:34] LABS: BASOPHILS % (AUTO) 1.3 % (0.0-2.0); EOSINOPHILS % (AUTO) 4.9 % (0.0-3.0); HEMOGLOBIN 10.5 G/DL (12.0-16.0); LYMPHOCYTES % (AUTO) 23.5 % (20.0-45.0); MEAN CORPUSCULAR VOLUME 82 FL (80-99); MONOCYTES % (AUTO) 7.2 % (1.0-10.0); PLATELET COUNT 425 K/UL (150-450); RED BLOOD COUNT 4.15 M/UL (4.20-5.40); RED CELL DISTRIBUTION WIDTH 14.9 % (11.6-14.8)
[2018-03-08] MEDS: Losartan 50mg tab GT SCH (08:39)
--- NOTE | 2018-03-08 10:10 | Diagnostic Imaging Report ---
Indication: Cough Technique: One view of the chest Comparison: 03/06/2028 Findings: Slightly better inspiration currently. There is retrocardiac consolidation and/or atelectasis and a small amount of pleural fluid. There is mild interstitial congestion which appears unchanged. Given degree of inspiration difference, probably no significant change Impression: Unchanged, over 2 days, findings as above.
[2018-03-08 12:00] VITALS: BP 137/76
[2018-03-08 16:00] VITALS: BP 113/63
--- NOTE | 2018-03-08 16:23 | Pulmonology Progress Note ---
Assessment/Plan Assessment/Plan 1. Acute respiratory failure, trach 2. 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 S/p trach 5. Parkinson's disease. 6. Esophageal dysmotility, PEG 7. Morbid obesity with obesity hypoventilation syndrome. 8. Hypertension w LVH 9. Nephrolithiasis and renal mass. 10. History of breast cancer 11. Diarrhea off vent on aerosol Tolerated speaking valve tube feeds per GI; swallow eval today agitated last night; Haldol rx called psych disc w RN BP low; reduce meds dc to subacute or LTAC placement when accepted appeal letter signed Subjective Respiratory: Reports: dry cough; Denies: shortness of breath Allergies: Coded Allergies: No Known Allergies (Unverified , 01/11/14) Objective Last 24 Hour Vital Signs Date Time Temp Pulse Resp B/P (MAP) Pulse Ox O2 Delivery O2 Flow Rate FiO2 03/08/18 16:00 5.0 28 03/08/18 16:00 Trach Collar 5.0 03/08/18 15:59 104 18 98 Trach Collar 6.0 28 03/08/18 15:50 100 20 99 Trach Collar 6.0 28 03/08/18 13:23 Trach Collar 6.0 28 03/08/18 13:23 98 Trach Collar 6.0 28 03/08/18 12:00 97.0 104 20 137/76 (96) 98 97.0 03/08/18 12:00 Trach Collar 5.0 03/08/18 12:00 5.0 28 03/08/18 12:00 108 03/08/18 10:29 102 18 98 Trach Collar 6.0 28 03/08/18 10:15 102 20 95 Trach Collar 6.0 28 03/08/18 08:39 112/71 03/08/18 08:39 82 112/71 03/08/18 08:00 5.0 28 03/08/18 08:00 97.6 82 20 112/71 (85) 98 97.6 03/08/18 08:00 82 03/08/18 08:00 Trach Collar 5.0 03/08/18 07:56 86 20 98 Trach Collar 6.0 28 03/08/18 07:48 98 Trach Collar 6.0 28 03/08/18 07:48 82 20 98 Trach Collar 6.0 28 03/08/18 07:48 Trach Collar 6.0 28 03/08/18 04:00 Trach Collar 5.0 03/08/18 04:00 5.0 28 03/08/18 04:00 98.2 82 22 126/72 (90) 97 98.2 03/08/18 04:00 79 03/08/18 03:30 87 20 98 T-piece 6.0 03/08/18 03:20 74 20 98 T-piece 6.0 03/08/18 00:50 T-piece 6.0 03/08/18 00:50 97 T-piece 6.0 03/08/18 00:00 Trach Collar 5.0 03/08/18 00:00 5.0 03/08/18 00:00 98.0 105 24 108/63 (78) 97 98.0 03/08/18 00:00 106 03/07/18 23:33 104 20 97 T-piece 6.0 03/07/18 23:29 105 20 97 T-piece 6.0 03/07/18 20:37 101 130/65 03/07/18 20:00 5.0 28 03/07/18 20:00 98.1 102 24 130/62 (84) 98 98.1 03/07/18 20:00 Trach Collar 5.0 03/07/18 20:00 103 03/07/18 19:32 105 20 96 T-piece 6.0 28 03/07/18 19:26 T-piece 6.0 28 03/07/18 19:26 97 T-piece 6.0 03/07/18 19:26 28 03/07/18 19:25 103 20 98 T-piece 6.0 28 Intake and Output 03/07/18 03/08/18 19:00 07:00 Intake Total 550 ml 900 ml Output Total 800 ml 200 ml Balance -250 ml 700 ml Free Water 100 ml 100 ml IV Total 200 ml Tube Feeding 450 ml 600 ml Output Urine Total 800 ml 200 ml # Bowel Movements 1 Objective morbidly obese, PEG, trach General Appearance: no acute distress Respiratory/Chest: lungs clear Cardiovascular: normal rate Laboratory Tests 03/08/18 04:05: Sodium Level 135L, Potassium Level 5.3H, Chloride Level 102, Carbon Dioxide Level 25, Anion Gap 9, Blood Urea Nitrogen 31H, Creatinine 1.0, Estimat Glomerular Filtration Rate , Glucose Level 153H, Calcium Level 10.6H 03/08/18 07:50: White Blood Count 9.0, Red Blood Count 4.15L, Hemoglobin 10.5L, Hematocrit 34.0L , Mean Corpuscular Volume 82, Mean Corpuscular Hemoglobin 25.4L, Mean Corpuscular Hemoglobin Concent 31.0L, Red Cell Distribution Width 14.9H, Platelet Count 425, Mean Platelet Volume 5.5L, Neutrophils (%) (Auto) 63.0, Lymphocytes (%) (Auto) 23.5, Monocytes (%) (Auto) 7.2, Eosinophils (%) (Auto) 4.9H, Basophils (%) (Auto) 1.3 Current Medications Medications (Trade) Dose Ordered Sig/Roro Route PRN Reason Start Time Stop Time Status Last Admin Dose Admin Acetaminophen (Tylenol) 650 mg Q4H PRN GT Fever/Headache 03/05/18 16:15 03/14/18 02:44 03/06/18 19:17 Albuterol/ Ipratropium (Albuterol/ Ipratropium) 3 ml Q4HRT HHN 03/04/18 11:00 03/09/18 10:59 03/08/18 15:52 Amlodipine Besylate (Norvasc) 5 mg QHS GT 03/08/18 21:00 04/03/18 20:59 Bisacodyl (Dulcolax) 10 mg DAILYPRN PRN RECTAL Constipation 03/02/18 20:15 03/16/18 19:14 Carbidopa/Levodopa (Sinemet 25/100) 1.5 tab 0700,1500,2300 GT 03/06/18 15:00 04/05/18 14:59 03/08/18 14:23 Cefepime HCl 2 gm/ Dextrose 100 ml @ 200 mls/hr Q24H IVPB 03/02/18 20:00 03/09/18 19:59 03/07/18 20:38 Clonidine HCl (Catapres Tab) 0.1 mg Q4H PRN GT For SBP>170 03/05/18 16:15 03/23/18 18:59 Diphenhydramine HCl (Benadryl) 25 mg Q4H PRN GT Itching 03/05/18 16:15 04/04/18 16:14 03/07/18 03:20 Fluconazole/ Sodium Chloride 100 ml @ 100 mls/hr Q24H IV 03/07/18 12:00 03/10/18 11:59 03/08/18 12:43 Insulin Aspart (NovoLOG) 4 units NOVOTIAC SUBQ 03/03/18 06:30 03/14/18 11:49 03/08/18 12:47 Lansoprazole (Prevacid) 30 mg ACBREAKFAST GT 03/06/18 06:30 03/14/18 06:29 03/08/18 06:18 Losartan Potassium (Cozaar) 100 mg DAILY GT 03/06/18 09:00 04/04/18 08:59 03/07/18 08:25 Metoclopramide HCl (Reglan) 10 mg Q6H PRN IVP Nausea & Vomiting 03/02/18 19:00 03/30/18 18:59 03/07/18 08:26 Metronidazole (Flagyl) 500 mg EVERY 8 HOURS GT 03/05/18 22:00 03/09/18 21:59 03/08/18 14:23 Ondansetron HCl (Zofran) 4 mg Q4H PRN IVP Nausea & Vomiting 03/02/18 19:00 03/15/18 18:59 03/03/18 06:55 Polyethylene Glycol (Miralax) 17 gm DAILYPRN PRN GT Constipation 03/05/18 16:15 03/22/18 19:59 Gómez Matos MD Mar 08, 2018 16:23
--- NOTE | 2018-03-08 17:08 | Infectious Diseases Prog Note ---
Assessment/Plan Assessment/Plan ASSESSMENT AND PLAN: 1. sepsis, leukocytosis, pseudomonas pna, e.coli uti, fungal uti, fungemia risk , lgt, diarrhea, c.diff. negative, respiratory failure, s/p trach - leukocytosis resolved, chest x-ray stable - cefepime and flagyl, diflucan x 3 days to complete at least 2 week treatment course - monitor labs and chest x-ray, ct abdomen and pelvis noted - d/w daughter - d/w pharmacy 2. Hypertension. Blood pressure treatment per primary, Dr. Matos. 3. Respiratory failure, on vent, weaning per Dr. Matos. 4. Rectal tube and diarrhea. 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 6. Clostridium difficile negative. 7. Parkinson disease. 8. Dysphagia. 9. Aspiration risk. 10. 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 11. History of anemia. 12. Nephrolithiasis. 13. Meningioma. 14. History of breast cancer. 15. History of lumpectomy. 16. Obesity. 17. Obesity hypoventilation syndrome. 18. No known allergies. 19. Social history negative. 20. MAR was noted. 21. Case discussed with RN. 22. Family history noncontributory. 23. Continue treatments per primary consultants. 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 Subjective Constitutional: Reports: fatigue; Denies: fever HEENT: Reports: congestion Respiratory: Reports: shortness of breath Cardiovascular: Denies: chest pain Gastrointestinal/Abdominal: Reports: diarrhea, other - + rectal tube ; Denies: nausea, vomiting Genitourinary: Reports: other - no mistry Neurologic: Denies: headache Psychiatric: Denies: depression Skin: Denies: rash Hematologic: Denies: bleeding Musculoskeletal: Denies: pain Allergies: Coded Allergies: No Known Allergies (Unverified , 01/11/14) Objective Vital Signs Last 24 Hour Vital Signs Date Time Temp Pulse Resp B/P (MAP) Pulse Ox O2 Delivery O2 Flow Rate FiO2 03/08/18 16:00 98.1 105 20 113/63 (80) 99 98.1 03/08/18 16:00 5.0 28 03/08/18 16:00 Trach Collar 5.0 03/08/18 16:00 97 03/08/18 15:59 104 18 98 Trach Collar 6.0 28 03/08/18 15:50 100 20 99 Trach Collar 6.0 28 03/08/18 13:23 Trach Collar 6.0 28 03/08/18 13:23 98 Trach Collar 6.0 28 03/08/18 12:00 97.0 104 20 137/76 (96) 98 97.0 03/08/18 12:00 Trach Collar 5.0 03/08/18 12:00 5.0 28 03/08/18 12:00 108 03/08/18 10:29 102 18 98 Trach Collar 6.0 28 03/08/18 10:15 102 20 95 Trach Collar 6.0 28 03/08/18 08:39 112/71 03/08/18 08:39 82 112/71 03/08/18 08:00 5.0 28 03/08/18 08:00 97.6 82 20 112/71 (85) 98 97.6 03/08/18 08:00 82 03/08/18 08:00 Trach Collar 5.0 03/08/18 07:56 86 20 98 Trach Collar 6.0 28 03/08/18 07:48 98 Trach Collar 6.0 28 03/08/18 07:48 82 20 98 Trach Collar 6.0 28 03/08/18 07:48 Trach Collar 6.0 28 03/08/18 04:00 Trach Collar 5.0 03/08/18 04:00 5.0 28 03/08/18 04:00 98.2 82 22 126/72 (90) 97 98.2 03/08/18 04:00 79 03/08/18 03:30 87 20 98 T-piece 6.0 03/08/18 03:20 74 20 98 T-piece 6.0 03/08/18 00:50 T-piece 6.0 28 03/08/18 00:50 97 T-piece 6.0 28 03/08/18 00:00 Trach Collar 5.0 03/08/18 00:00 5.0 28 03/08/18 00:00 98.0 105 24 108/63 (78) 97 98.0 03/08/18 00:00 106 03/07/18 23:33 104 20 97 T-piece 6.0 28 03/07/18 23:29 105 20 97 T-piece 6.0 28 03/07/18 20:37 101 130/65 03/07/18 20:00 5.0 28 03/07/18 20:00 98.1 102 24 130/62 (84) 98 98.1 03/07/18 20:00 Trach Collar 5.0 03/07/18 20:00 103 03/07/18 19:32 105 20 96 T-piece 6.0 28 03/07/18 19:26 T-piece 6.0 28 03/07/18 19:26 97 T-piece 6.0 28 03/07/18 19:26 28 03/07/18 19:25 103 20 98 T-piece 6.0 28 Height (Feet): 5 Height (Inches): 6.00 Weight (Pounds): 277 General Appearance: no acute distress, other - trach collar, no vent HEENT: normocephalic, atraumatic, anicteric Respiratory/Chest: crackles/rales - few, rhonchi - bilaterally - few Cardiovascular: normal rate, regular rhythm, no gallop/murmur, no JVD Abdomen: normal bowel sounds, soft, non tender, no organomegaly, non distended Genitourinary: other - no mistry Extremities: no cyanosis Skin: no rash 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 There is increased consolidation of the left lung base. There is generalized mild interstitial congestion again demonstrated. There is probably some pleural fluid on the left. The heart is borderline enlarged. The aorta is tortuous. Again demonstrated are endotracheal and nasogastric tube and a mediastinal stent. Impression: Worsening bilateral basilar infiltrates versus edema, over 2 days Chest x-ray - 02/28 - INDICATION: Infection COMPARISON: Chest x-ray dated 02/26/18 FINDINGS: Single frontal view demonstrates prominent heart size. Nasogastric tube below diaphragm. Tracheostomy. Aortic stent. Mild bilateral lower lobe opacities, right greater than left. No pleural effusions. The visualized osseous structures are within normal limits. IMPRESSION: No significant change. Tubes and lines as outlined above. Mild bilateral lower lobe opacity, right greater than left. Chest x-ray - 03/02 - IMPRESSION: * Interval removal of enteric tube * Tracheostomy tube unchanged. Unchanged mediastinal stent, likely tracheal stent. * Persistent but slightly decreased right base opacities. * Left Basilar/retrocardiac opacities unchanged. Small left pleural effusion not excluded. CT abdomen and pelvis: Impression: Evidence of satisfactory gastrostomy placement, without evidence of complication. Satisfactory position, no evidence of adjacent fluid collection, and no evidence of traversal of intervening vital structures Mural gallbladder calcifications, consistent with so-called porcelain gallbladder 6 mm nonobstructive left renal calyceal calculus 03/06 - chest x-ray - FINDINGS: Lungs: Low lung volumes. Tracheostomy and tracheal stent again noted. Persistent left lung base infiltrate. Pleural space: Suspected small left effusion. No pneumothorax. Heart: Unremarkable. No cardiomegaly. Mediastinum: Unremarkable. Bones/joints: Unremarkable. IMPRESSION: Persistent left lung base infiltrate/atelectasis and small left effusion. 03/08 - chest x-ray - Findings: Slightly better inspiration currently. There is retrocardiac consolidation and/or atelectasis and a small amount of pleural fluid. There is mild interstitial congestion which appears unchanged. Given degree of inspiration difference, probably no significant change Impression: Unchanged, over 2 days, findings as above. Microbiology Date/Time Source Procedure Growth Status 02/26/18 05:45 Blood Blood Culture - Final NO GROWTH AFTER 5 DAYS Complete 02/26/18 14:17 Throat Gram Stain - Final Complete 02/26/18 14:17 Aerobic Culture - Final Pseudomonas Aeruginosa Complete 02/21/18 18:30 Stool Clostridium difficile Toxin Assay - Final Complete 02/26/18 10:00 Indwelling Cath Urine Culture - Final Lorena Albicans Complete 02/26/18 14:17 Trachea Swab Anaerobic Culture - Final NO ANAEROBES ISOLATED Complete Laboratory Tests Test 03/08/18 04:05 03/08/18 07:50 Sodium Level 135 MMOL/L (136-145) L Potassium Level 5.3 MMOL/L (3.5-5.1) H Chloride Level 102 MMOL/L (98-107) Carbon Dioxide Level 25 MMOL/L (21-32) Anion Gap 9 mmol/L (5-15) Blood Urea Nitrogen 31 mg/dL (7-18) H Creatinine 1.0 MG/DL (0.55-1.30) Estimat Glomerular Filtration Rate mL/min (>60) Glucose Level 153 MG/DL (74-106) H Calcium Level 10.6 MG/DL (8.5-10.1) H White Blood Count 9.0 K/UL (4.8-10.8) Red Blood Count 4.15 M/UL (4.20-5.40) L Hemoglobin 10.5 G/DL (12.0-16.0) L Hematocrit 34.0 % (37.0-47.0) L Mean Corpuscular Volume 82 FL (80-99) Mean Corpuscular Hemoglobin 25.4 PG (27.0-31.0) L Mean Corpuscular Hemoglobin Concent 31.0 G/DL (32.0-36.0) L Red Cell Distribution Width 14.9 % (11.6-14.8) H Platelet Count 425 K/UL (150-450) Mean Platelet Volume 5.5 FL (6.5-10.1) L Neutrophils (%) (Auto) 63.0 % (45.0-75.0) Lymphocytes (%) (Auto) 23.5 % (20.0-45.0) Monocytes (%) (Auto) 7.2 % (1.0-10.0) Eosinophils (%) (Auto) 4.9 % (0.0-3.0) H Basophils (%) (Auto) 1.3 % (0.0-2.0) Current Medications Medications (Trade) Dose Ordered Sig/Roro Route PRN Reason Start Time Stop Time Status Last Admin Dose Admin Acetaminophen (Tylenol) 650 mg Q4H PRN GT Fever/Headache 03/05/18 16:15 03/14/18 02:44 03/06/18 19:17 Albuterol/ Ipratropium (Albuterol/ Ipratropium) 3 ml Q4HRT HHN 03/04/18 11:00 03/09/18 10:59 03/08/18 15:52 Amlodipine Besylate (Norvasc) 5 mg QHS GT 03/08/18 21:00 04/03/18 20:59 Bisacodyl (Dulcolax) 10 mg DAILYPRN PRN RECTAL Constipation 03/02/18 20:15 03/16/18 19:14 Carbidopa/Levodopa (Sinemet 25/100) 1.5 tab 0700,1500,2300 GT 8/11/18 15:00 04/05/18 14:59 03/08/18 14:23 Cefepime HCl 2 gm/ Dextrose 100 ml @ 200 mls/hr Q24H IVPB 03/02/18 20:00 03/09/18 19:59 03/07/18 20:38 Clonidine HCl (Catapres Tab) 0.1 mg Q4H PRN GT For SBP>170 03/05/18 16:15 03/23/18 18:59 Diphenhydramine HCl (Benadryl) 25 mg Q4H PRN GT Itching 03/05/18 16:15 04/04/18 16:14 03/07/18 03:20 Fluconazole/ Sodium Chloride 100 ml @ 100 mls/hr Q24H IV 03/07/18 12:00 03/10/18 11:59 03/08/18 12:43 Insulin Aspart (NovoLOG) 4 units NOVOTIAC SUBQ 03/03/18 06:30 03/14/18 11:49 03/08/18 12:47 Lansoprazole (Prevacid) 30 mg ACBREAKFAST GT 03/06/18 06:30 03/14/18 06:29 03/08/18 06:18 Losartan Potassium (Cozaar) 100 mg DAILY GT 03/06/18 09:00 04/04/18 08:59 03/07/18 08:25 Metoclopramide HCl (Reglan) 10 mg Q6H PRN IVP Nausea & Vomiting 03/02/18 19:00 03/30/18 18:59 03/07/18 08:26 Metronidazole (Flagyl) 500 mg EVERY 8 HOURS GT 03/05/18 22:00 03/09/18 21:59 03/08/18 14:23 Ondansetron HCl (Zofran) 4 mg Q4H PRN IVP Nausea & Vomiting 03/02/18 19:00 03/15/18 18:59 03/03/18 06:55 Polyethylene Glycol (Miralax) 17 gm DAILYPRN PRN GT Constipation 03/05/18 16:15 03/22/18 19:59 Celia Capone MD Mar 08, 2018 17:08
--- NOTE | 2018-03-08 19:18 | General Progress Note ---
Assessment/Plan Assessment/Plan Assessment - respiratory failure - s/p trach - s/p tracheal stent - s/p PEG - parkinsons - anemia, OB (-) x 3 - diarrhea, possibly TF related Recommendations - Continue TF - PT & ST eval - elemental TF to reduce diarrhea - follow labs - [facility] Subjective Allergies: Coded Allergies: No Known Allergies (Unverified , 01/11/14) Subjective no abdominal complaints tolerating TF swallow results discussed with patient Objective Last 24 Hour Vital Signs Date Time Temp Pulse Resp B/P (MAP) Pulse Ox O2 Delivery O2 Flow Rate FiO2 03/08/18 16:00 98.1 105 20 113/63 (80) 99 98.1 03/08/18 16:00 5.0 28 03/08/18 16:00 Trach Collar 5.0 03/08/18 16:00 97 03/08/18 15:59 104 18 98 Trach Collar 6.0 28 03/08/18 15:50 100 20 99 Trach Collar 6.0 28 03/08/18 13:23 Trach Collar 6.0 28 03/08/18 13:23 98 Trach Collar 6.0 28 03/08/18 12:00 97.0 104 20 137/76 (96) 98 97.0 03/08/18 12:00 Trach Collar 5.0 03/08/18 12:00 5.0 28 03/08/18 12:00 108 03/08/18 10:29 102 18 98 Trach Collar 6.0 28 03/08/18 10:15 102 20 95 Trach Collar 6.0 28 03/08/18 08:39 112/71 03/08/18 08:39 82 112/71 03/08/18 08:00 5.0 28 03/08/18 08:00 97.6 82 20 112/71 (85) 98 97.6 03/08/18 08:00 82 03/08/18 08:00 Trach Collar 5.0 03/08/18 07:56 86 20 98 Trach Collar 6.0 28 03/08/18 07:48 98 Trach Collar 6.0 28 03/08/18 07:48 82 20 98 Trach Collar 6.0 28 03/08/18 07:48 Trach Collar 6.0 28 03/08/18 04:00 Trach Collar 5.0 03/08/18 04:00 5.0 28 03/08/18 04:00 98.2 82 22 126/72 (90) 97 98.2 03/08/18 04:00 79 03/08/18 03:30 87 20 98 T-piece 6.0 03/08/18 03:20 74 20 98 T-piece 6.0 28 03/08/18 00:50 T-piece 6.0 28 03/08/18 00:50 97 T-piece 6.0 28 03/08/18 00:00 Trach Collar 5.0 03/08/18 00:00 5.0 28 03/08/18 00:00 98.0 105 24 108/63 (78) 97 98.0 03/08/18 00:00 106 03/07/18 23:33 104 20 97 T-piece 6.0 28 03/07/18 23:29 105 20 97 T-piece 6.0 28 03/07/18 20:37 101 130/65 03/07/18 20:00 5.0 28 03/07/18 20:00 98.1 102 24 130/62 (84) 98 98.1 03/07/18 20:00 Trach Collar 5.0 03/07/18 20:00 103 03/07/18 19:32 105 20 96 T-piece 6.0 28 03/07/18 19:26 T-piece 6.0 28 03/07/18 19:26 97 T-piece 6.0 28 03/07/18 19:26 28 03/07/18 19:25 103 20 98 T-piece 6.0 28 Intake and Output 03/07/18 03/08/18 19:00 07:00 Intake Total 550 ml 900 ml Output Total 800 ml 200 ml Balance -250 ml 700 ml Free Water 100 ml 100 ml IV Total 200 ml Tube Feeding 450 ml 600 ml Output Urine Total 800 ml 200 ml # Bowel Movements 1 Laboratory Tests 03/08/18 04:05: Sodium Level 135L, Potassium Level 5.3H, Chloride Level 102, Carbon Dioxide Level 25, Anion Gap 9, Blood Urea Nitrogen 31H, Creatinine 1.0, Estimat Glomerular Filtration Rate , Glucose Level 153H, Calcium Level 10.6H 03/08/18 07:50: White Blood Count 9.0, Red Blood Count 4.15L, Hemoglobin 10.5L, Hematocrit 34.0L , Mean Corpuscular Volume 82, Mean Corpuscular Hemoglobin 25.4L, Mean Corpuscular Hemoglobin Concent 31.0L, Red Cell Distribution Width 14.9H, Platelet Count 425, Mean Platelet Volume 5.5L, Neutrophils (%) (Auto) 63.0, Lymphocytes (%) (Auto) 23.5, Monocytes (%) (Auto) 7.2, Eosinophils (%) (Auto) 4.9H, Basophils (%) (Auto) 1.3 Height (Feet): 5 Height (Inches): 6.00 Weight (Pounds): 277 Objective WDWN NCAT Neck: (+) trach CTA RRR Abd Soft ND NT, (+) GT no edema neuro: awake and alert Nell Gabriel MD Mar 08, 2018 19:18
[2018-03-08 20:00] VITALS: BP 99/62
[2018-03-08] MEDS: DiphenhydrAMINE 25mg/10ml Elixir GT PRN (23:33)
[2018-03-09] VITALS: BP 121/75
[2018-03-09 04:00] VITALS: BP 128/85
[2018-03-09] MEDS: Albuterol/Ipratropium 3ml neb HHN SCH ×6 (04:04→23:08)
[2018-03-09] MEDS: metroNIDAZOLE 500mg tab GT SCH ×3 (05:30→22:54)
[2018-03-09] MEDS: Levodopa/Carbidopa 25/100 tab GT SCH ×3 (06:07→22:54)
[2018-03-09] MEDS: NovoLOG Insulin Flexpen SUBQ SCH ×3 (06:08→16:58)
--- NOTE | 2018-03-09 07:36 | General Progress Note ---
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 Objective Last 24 Hour Vital Signs Date Time Temp Pulse Resp B/P (MAP) Pulse Ox O2 Delivery O2 Flow Rate FiO2 03/09/18 07:24 Trach Collar 6.0 28 03/09/18 07:24 84 16 99 Trach Collar 6.0 28 03/09/18 07:24 99 Trach Collar 6.0 28 03/09/18 04:00 66 03/09/18 04:00 5.0 28 03/09/18 04:00 Trach Collar 5.0 03/09/18 04:00 98.1 82 20 128/85 (99) 98 98.1 03/09/18 03:15 75 20 99 Trach Collar 6.0 28 03/09/18 03:05 65 20 99 Trach Collar 6.0 28 03/09/18 01:00 Trach Collar 6.0 28 03/09/18 01:00 97 Trach Collar 6.0 28 03/09/18 00:54 97 20 Trach Collar 28 03/09/18 00:00 109 03/09/18 00:00 5.0 28 03/09/18 00:00 Trach Collar 5.0 03/09/18 00:00 97.4 97 18 121/75 (90) 97 97.4 03/08/18 23:28 101 20 99 Trach Collar 6.0 28 03/08/18 23:22 97 20 98 Trach Collar 6.0 28 03/08/18 20:15 110 20 98 Trach Collar 6.0 28 03/08/18 20:07 Trach Collar 6.0 28 03/08/18 20:07 98 Trach Collar 6.0 28 03/08/18 20:04 104 20 98 Trach Collar 6.0 28 03/08/18 20:03 92 99/72 03/08/18 20:00 97.1 98 18 99/62 (74) 98 97.1 03/08/18 20:00 5.0 28 03/08/18 20:00 104 03/08/18 20:00 Trach Collar 5.0 03/08/18 16:00 98.1 105 20 113/63 (80) 99 98.1 03/08/18 16:00 5.0 28 03/08/18 16:00 Trach Collar 5.0 03/08/18 16:00 97 03/08/18 15:59 104 18 98 Trach Collar 6.0 28 03/08/18 15:50 100 20 99 Trach Collar 6.0 28 03/08/18 13:23 Trach Collar 6.0 28 03/08/18 13:23 98 Trach Collar 6.0 28 03/08/18 12:00 97.0 104 20 137/76 (96) 98 97.0 03/08/18 12:00 Trach Collar 5.0 03/08/18 12:00 5.0 28 03/08/18 12:00 108 03/08/18 10:29 102 18 98 Trach Collar 6.0 28 03/08/18 10:15 102 20 95 Trach Collar 6.0 28 03/08/18 08:39 112/71 03/08/18 08:39 82 112/71 03/08/18 08:00 5.0 28 03/08/18 08:00 97.6 82 20 112/71 (85) 98 97.6 03/08/18 08:00 82 03/08/18 08:00 Trach Collar 5.0 03/08/18 07:56 86 20 98 Trach Collar 6.0 28 03/08/18 07:48 98 Trach Collar 6.0 28 03/08/18 07:48 82 20 98 Trach Collar 6.0 28 03/08/18 07:48 Trach Collar 6.0 28 Intake and Output 03/08/18 03/09/18 19:00 07:00 Intake Total 500 ml 1000 ml Output Total 700 ml 475 ml Balance -200 ml 525 ml Free Water 100 ml IV Total 200 ml Tube Feeding 500 ml 600 ml Other 100 ml Output Urine Total 700 ml 475 ml # Bowel Movements 1 Laboratory Tests 03/08/18 07:50: White Blood Count 9.0, Red Blood Count 4.15L, Hemoglobin 10.5L, Hematocrit 34.0L , Mean Corpuscular Volume 82, Mean Corpuscular Hemoglobin 25.4L, Mean Corpuscular Hemoglobin Concent 31.0L, Red Cell Distribution Width 14.9H, Platelet Count 425, Mean Platelet Volume 5.5L, Neutrophils (%) (Auto) 63.0, Lymphocytes (%) (Auto) 23.5, Monocytes (%) (Auto) 7.2, Eosinophils (%) (Auto) 4.9H, Basophils (%) (Auto) 1.3 Height (Feet): 5 Height (Inches): 6.00 Weight (Pounds): 271 Objective WDWN NCAT Neck: (+) trach CTA RRR Abd Soft ND NT, (+) GT no edema Nell Gabriel MD Mar 09, 2018 07:36
[2018-03-09 08:00] VITALS: BP 132/81
[2018-03-09] MEDS: Losartan 50mg tab GT SCH (08:56)
[2018-03-09 12:00] VITALS: BP 93/65
--- NOTE | 2018-03-09 12:00 | Pulmonology Progress Note ---
Assessment/Plan Assessment/Plan 1. Acute respiratory failure, trach 2. 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 S/p trach 5. Parkinson's disease. 6. Esophageal dysmotility, PEG 7. Morbid obesity with obesity hypoventilation syndrome. 8. Hypertension w LVH 9. Nephrolithiasis and renal mass. 10. History of breast cancer 11. Diarrhea off vent on aerosol Tolerated speaking valve tube feeds per GI; swallow eval reviewed called psych marilyn harrison RN dc to subacute or LTAC placement when accepted appeal letter signed marilyn w son at length re: recurrent aspiration in past and he wishes to keep her NPO and continue tube feeds due to this. She agrees. Subjective Constitutional: Denies: fever, chills Respiratory: Denies: shortness of breath Allergies: Coded Allergies: No Known Allergies (Unverified , 01/11/14) Objective Last 24 Hour Vital Signs Date Time Temp Pulse Resp B/P (MAP) Pulse Ox O2 Delivery O2 Flow Rate FiO2 03/09/18 10:54 86 18 100 Trach Collar 6.0 28 03/09/18 10:44 97 18 100 Trach Collar 6.0 28 03/09/18 08:56 132/81 03/09/18 08:00 96.6 87 16 132/81 (98) 99 96.6 03/09/18 08:00 5.0 28 03/09/18 08:00 91 03/09/18 08:00 Trach Collar 5.0 03/09/18 07:34 86 17 99 Trach Collar 6.0 03/09/18 07:24 Trach Collar 6.0 28 03/09/18 07:24 84 16 99 Trach Collar 6.0 28 03/09/18 07:24 99 Trach Collar 6.0 28 03/09/18 04:00 66 03/09/18 04:00 5.0 28 03/09/18 04:00 Trach Collar 5.0 03/09/18 04:00 98.1 82 20 128/85 (99) 98 98.1 03/09/18 03:15 75 20 99 Trach Collar 6.0 28 03/09/18 03:05 65 20 99 Trach Collar 6.0 28 03/09/18 01:00 Trach Collar 6.0 28 03/09/18 01:00 97 Trach Collar 6.0 28 03/09/18 00:54 97 20 Trach Collar 28 03/09/18 00:00 109 03/09/18 00:00 5.0 28 03/09/18 00:00 Trach Collar 5.0 03/09/18 00:00 97.4 97 18 121/75 (90) 97 97.4 03/08/18 23:28 101 20 99 Trach Collar 6.0 28 03/08/18 23:22 97 20 98 Trach Collar 6.0 28 03/08/18 20:15 110 20 98 Trach Collar 6.0 28 03/08/18 20:07 Trach Collar 6.0 28 03/08/18 20:07 98 Trach Collar 6.0 28 03/08/18 20:04 104 20 98 Trach Collar 6.0 28 03/08/18 20:03 92 99/72 03/08/18 20:00 97.1 98 18 99/62 (74) 98 97.1 03/08/18 20:00 5.0 28 03/08/18 20:00 104 03/08/18 20:00 Trach Collar 5.0 03/08/18 16:00 98.1 105 20 113/63 (80) 99 98.1 03/08/18 16:00 5.0 28 03/08/18 16:00 Trach Collar 5.0 03/08/18 16:00 97 03/08/18 15:59 104 18 98 Trach Collar 6.0 28 03/08/18 15:50 100 20 99 Trach Collar 6.0 28 03/08/18 13:23 Trach Collar 6.0 28 03/08/18 13:23 98 Trach Collar 6.0 28 03/08/18 12:00 97.0 104 20 137/76 (96) 98 97.0 03/08/18 12:00 Trach Collar 5.0 03/08/18 12:00 5.0 28 03/08/18 12:00 108 Intake and Output 03/08/18 03/09/18 19:00 07:00 Intake Total 500 ml 1000 ml Output Total 700 ml 475 ml Balance -200 ml 525 ml Free Water 100 ml IV Total 200 ml Tube Feeding 500 ml 600 ml Other 100 ml Output Urine Total 700 ml 475 ml # Bowel Movements 1 Objective morbidly obese, PEG, trach General Appearance: no acute distress Respiratory/Chest: lungs clear Cardiovascular: normal rate Current Medications Medications (Trade) Dose Ordered Sig/Roro Route PRN Reason Start Time Stop Time Status Last Admin Dose Admin Acetaminophen (Tylenol) 650 mg Q4H PRN GT Fever/Headache 03/05/18 16:15 03/14/18 02:44 03/06/18 19:17 Albuterol/ Ipratropium (Albuterol/ Ipratropium) 3 ml Q4HRT HHN 03/09/18 11:00 03/14/18 10:59 03/09/18 10:44 Amlodipine Besylate (Norvasc) 5 mg QHS GT 03/08/18 21:00 04/03/18 20:59 Bisacodyl (Dulcolax) 10 mg DAILYPRN PRN RECTAL Constipation 03/02/18 20:15 03/16/18 19:14 Carbidopa/Levodopa (Sinemet 25/100) 1.5 tab 0700,1500,2300 GT 03/06/18 15:00 04/05/18 14:59 03/09/18 06:07 Cefepime HCl 2 gm/ Dextrose 100 ml @ 200 mls/hr Q24H IVPB 03/08/18 20:00 03/10/18 23:59 03/08/18 19:57 Clonidine HCl (Catapres Tab) 0.1 mg Q4H PRN GT For SBP>170 03/05/18 16:15 03/23/18 18:59 Diphenhydramine HCl (Benadryl) 25 mg Q4H PRN GT Itching 03/05/18 16:15 04/04/18 16:14 03/07/18 03:20 Fluconazole/ Sodium Chloride 100 ml @ 100 mls/hr Q24H IV 03/09/18 12:00 03/10/18 23:59 Insulin Aspart (NovoLOG) 4 units NOVOTIAC SUBQ 03/03/18 06:30 03/14/18 11:49 03/09/18 06:08 Lansoprazole (Prevacid) 30 mg ACBREAKFAST GT 03/06/18 06:30 03/14/18 06:29 03/09/18 05:30 Losartan Potassium (Cozaar) 100 mg DAILY GT 03/06/18 09:00 04/04/18 08:59 03/09/18 08:56 Metoclopramide HCl (Reglan) 10 mg Q6H PRN IVP Nausea & Vomiting 03/02/18 19:00 03/30/18 18:59 03/07/18 08:26 Metronidazole (Flagyl) 500 mg EVERY 8 HOURS GT 03/08/18 22:00 03/10/18 21:59 03/09/18 05:30 Ondansetron HCl (Zofran) 4 mg Q4H PRN IVP Nausea & Vomiting 03/02/18 19:00 03/15/18 18:59 03/03/18 06:55 Polyethylene Glycol (Miralax) 17 gm DAILYPRN PRN GT Constipation 03/05/18 16:15 03/22/18 19:59 Gómez Matos MD Mar 09, 2018 12:00
[2018-03-09 16:00] VITALS: BP 137/86
[2018-03-09 20:00] VITALS: BP 133/80
[2018-03-10] VITALS (7 sets, daily range): BP systolic 104–138; BP diastolic 66–82
[2018-03-10] MEDS: Albuterol/Ipratropium 3ml neb HHN SCH ×6 (03:28→23:11)
[2018-03-10 06:03] LABS: BASOPHILS % (AUTO) 1.8 % (0.0-2.0); EOSINOPHILS % (AUTO) 6.1 % (0.0-3.0); HEMATOCRIT 36.8 % (37.0-47.0); HEMOGLOBIN 11.1 G/DL (12.0-16.0); LYMPHOCYTES % (AUTO) 22.4 % (20.0-45.0); MEAN CORPUSCULAR VOLUME 82 FL (80-99); NEUTROPHILS % (AUTO) 61.7 % (45.0-75.0); PLATELET COUNT 365 K/UL (150-450); RED BLOOD COUNT 4.47 M/UL (4.20-5.40); RED CELL DISTRIBUTION WIDTH 15.3 % (11.6-14.8); WHITE BLOOD COUNT 7.7 K/UL (4.8-10.8)
[2018-03-10] MEDS: metroNIDAZOLE 500mg tab GT SCH ×2 (06:05→14:20)
[2018-03-10] MEDS: NovoLOG Insulin Flexpen SUBQ SCH ×3 (06:09→16:39)
[2018-03-10 06:18] LABS: ANION GAP 8 mmol/L (5-15); BLOOD UREA NITROGEN 36 mg/dL (7-18); CALCIUM 10.7 MG/DL (8.5-10.1); CARBON DIOXIDE 27 MMOL/L (21-32); CHLORIDE 102 MMOL/L (98-107); CREATININE 0.8 MG/DL (0.55-1.30); POTASSIUM 4.4 MMOL/L (3.5-5.1); SODIUM 137 MMOL/L (136-145)
[2018-03-10] MEDS: Levodopa/Carbidopa 25/100 tab GT SCH ×3 (06:46→22:48)
[2018-03-10] MEDS: Losartan 50mg tab GT SCH (08:55)
--- NOTE | 2018-03-10 15:03 | Infectious Diseases Prog Note ---
Assessment/Plan Assessment/Plan ASSESSMENT AND PLAN: 1. sepsis, leukocytosis, pseudomonas pna, e.coli uti, fungal uti, fungemia risk , lgt, diarrhea, c.diff. negative, respiratory failure, s/p trach - leukocytosis resolved, chest x-ray stable - cefepime and flagyl, diflucan x 1 day to complete at least 2 week treatment course - monitor labs and chest x-ray, ct abdomen and pelvis noted 2. Hypertension. Blood pressure treatment per primary, Dr. Matos. 3. Respiratory failure, on vent, weaning per Dr. Matos. 4. Rectal tube and diarrhea. 5. Mistry. 6. Clostridium difficile negative. 7. Parkinson disease. 8. Dysphagia. 9. Aspiration risk. 10. 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 11. History of anemia. 12. Nephrolithiasis. 13. Meningioma. 14. History of breast cancer. 15. History of lumpectomy. 16. Obesity. 17. Obesity hypoventilation syndrome. 18. No known allergies. 19. Social history negative. 20. MAR was noted. 21. Case discussed with RN. 22. Family history noncontributory. 23. Continue treatments per primary consultants. 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 Subjective Constitutional: Reports: fatigue; Denies: fever HEENT: Denies: congestion Respiratory: Denies: shortness of breath Cardiovascular: Denies: chest pain Gastrointestinal/Abdominal: Reports: diarrhea, other - + rectal tube ; Denies: nausea, vomiting Genitourinary: Reports: other - no mistry Neurologic: Denies: headache Psychiatric: Denies: depression Skin: Denies: rash Hematologic: Denies: bleeding Musculoskeletal: Denies: pain Allergies: Coded Allergies: No Known Allergies (Unverified , 01/11/14) Objective Vital Signs Last 24 Hour Vital Signs Date Time Temp Pulse Resp B/P (MAP) Pulse Ox O2 Delivery O2 Flow Rate FiO2 03/10/18 14:00 100 Trach Collar 6.0 28 03/10/18 14:00 Trach Collar 6.0 28 03/10/18 12:18 98 03/10/18 12:00 Trach Collar 5.0 03/10/18 12:00 5.0 28 03/10/18 12:00 98.5 102 19 118/77 (91) 99 98.5 03/10/18 11:40 96 20 100 Trach Collar 6.0 28 03/10/18 11:30 98 18 99 Trach Collar 6.0 28 03/10/18 08:55 106/66 03/10/18 08:06 94 03/10/18 08:00 5.0 28 03/10/18 08:00 Trach Collar 5.0 03/10/18 08:00 97.5 81 16 106/66 (79) 98 97.5 03/10/18 07:32 87 20 100 Trach Collar 6.0 28 03/10/18 07:25 99 Trach Collar 6.0 28 03/10/18 07:25 86 18 99 Trach Collar 6.0 28 03/10/18 07:25 Trach Collar 6.0 28 03/10/18 04:00 94 03/10/18 04:00 Trach Collar 5.0 03/10/18 04:00 98.2 95 20 111/72 (85) 98 98.2 03/10/18 04:00 5.0 28 03/10/18 03:36 88 20 99 Trach Collar 6.0 28 03/10/18 03:29 75 20 99 Trach Collar 6.0 28 03/10/18 03:28 99 Trach Collar 6.0 28 03/10/18 01:00 Trach Collar 6.0 28 03/10/18 00:00 5.0 28 03/10/18 00:00 98.1 94 20 110/78 (89) 96 98.1 03/10/18 00:00 Trach Collar 5.0 03/09/18 23:22 104 20 97 Trach Collar 6.0 28 03/09/18 23:08 101 20 96 Trach Collar 6.0 28 03/09/18 20:15 106 137/86 03/09/18 20:00 98.6 100 18 133/80 (97) 95 98.6 03/09/18 20:00 101 03/09/18 20:00 5.0 28 03/09/18 20:00 Trach Collar 5.0 03/09/18 19:07 Trach Collar 6.0 28 03/09/18 19:06 100 Trach Collar 6.0 28 03/09/18 18:59 106 20 100 Trach Collar 6.0 28 03/09/18 18:45 104 20 98 Trach Collar 6.0 28 03/09/18 16:00 97.9 99 17 137/86 (103) 99 97.9 03/09/18 16:00 Trach Collar 5.0 03/09/18 16:00 5.0 28 03/09/18 16:00 92 03/09/18 15:45 97 20 100 Trach Collar 6.0 28 03/09/18 15:34 96 21 99 Trach Collar 6.0 28 Height (Feet): 5 Height (Inches): 6.00 Weight (Pounds): 270 General Appearance: no acute distress HEENT: normocephalic, atraumatic, anicteric, mucous membranes moist, status post trach Respiratory/Chest: crackles/rales - less, rhonchi - bilaterally Cardiovascular: normal rate, regular rhythm, no gallop/murmur, no JVD Abdomen: normal bowel sounds, soft, non tender, no organomegaly, non distended Genitourinary: other - no mistry Extremities: no cyanosis Skin: no rash 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 There is increased consolidation of the left lung base. There is generalized mild interstitial congestion again demonstrated. There is probably some pleural fluid on the left. The heart is borderline enlarged. The aorta is tortuous. Again demonstrated are endotracheal and nasogastric tube and a mediastinal stent. Impression: Worsening bilateral basilar infiltrates versus edema, over 2 days Chest x-ray - 02/28 - INDICATION: Infection COMPARISON: Chest x-ray dated 02/26/18 FINDINGS: Single frontal view demonstrates prominent heart size. Nasogastric tube below diaphragm. Tracheostomy. Aortic stent. Mild bilateral lower lobe opacities, right greater than left. No pleural effusions. The visualized osseous structures are within normal limits. IMPRESSION: No significant change. Tubes and lines as outlined above. Mild bilateral lower lobe opacity, right greater than left. Chest x-ray - 03/02 - IMPRESSION: * Interval removal of enteric tube * Tracheostomy tube unchanged. Unchanged mediastinal stent, likely tracheal stent. * Persistent but slightly decreased right base opacities. * Left Basilar/retrocardiac opacities unchanged. Small left pleural effusion not excluded. CT abdomen and pelvis: Impression: Evidence of satisfactory gastrostomy placement, without evidence of complication. Satisfactory position, no evidence of adjacent fluid collection, and no evidence of traversal of intervening vital structures Mural gallbladder calcifications, consistent with so-called porcelain gallbladder 6 mm nonobstructive left renal calyceal calculus 03/06 - chest x-ray - FINDINGS: Lungs: Low lung volumes. Tracheostomy and tracheal stent again noted. Persistent left lung base infiltrate. Pleural space: Suspected small left effusion. No pneumothorax. Heart: Unremarkable. No cardiomegaly. Mediastinum: Unremarkable. Bones/joints: Unremarkable. IMPRESSION: Persistent left lung base infiltrate/atelectasis and small left effusion. 03/08 - chest x-ray - Findings: Slightly better inspiration currently. There is retrocardiac consolidation and/or atelectasis and a small amount of pleural fluid. There is mild interstitial congestion which appears unchanged. Given degree of inspiration difference, probably no significant change Impression: Unchanged, over 2 days, findings as above. Microbiology Date/Time Source Procedure Growth Status 02/26/18 05:45 Blood Blood Culture - Final NO GROWTH AFTER 5 DAYS Complete 02/26/18 14:17 Throat Gram Stain - Final Complete 02/26/18 14:17 Aerobic Culture - Final Pseudomonas Aeruginosa Complete 02/21/18 18:30 Stool Clostridium difficile Toxin Assay - Final Complete 02/26/18 10:00 Indwelling Cath Urine Culture - Final Lorena Albicans Complete 02/26/18 14:17 Trachea Swab Anaerobic Culture - Final NO ANAEROBES ISOLATED Complete Laboratory Tests Test 03/10/18 04:54 White Blood Count 7.7 K/UL (4.8-10.8) Red Blood Count 4.47 M/UL (4.20-5.40) Hemoglobin 11.1 G/DL (12.0-16.0) L Hematocrit 36.8 % (37.0-47.0) L Mean Corpuscular Volume 82 FL (80-99) Mean Corpuscular Hemoglobin 24.8 PG (27.0-31.0) L Mean Corpuscular Hemoglobin Concent 30.1 G/DL (32.0-36.0) L Red Cell Distribution Width 15.3 % (11.6-14.8) H Platelet Count 365 K/UL (150-450) Mean Platelet Volume 5.5 FL (6.5-10.1) L Neutrophils (%) (Auto) 61.7 % (45.0-75.0) Lymphocytes (%) (Auto) 22.4 % (20.0-45.0) Monocytes (%) (Auto) 8.0 % (1.0-10.0) Eosinophils (%) (Auto) 6.1 % (0.0-3.0) H Basophils (%) (Auto) 1.8 % (0.0-2.0) Sodium Level 137 MMOL/L (136-145) Potassium Level 4.4 MMOL/L (3.5-5.1) Chloride Level 102 MMOL/L (98-107) Carbon Dioxide Level 27 MMOL/L (21-32) Anion Gap 8 mmol/L (5-15) Blood Urea Nitrogen 36 mg/dL (7-18) H Creatinine 0.8 MG/DL (0.55-1.30) Estimat Glomerular Filtration Rate mL/min (>60) Glucose Level 138 MG/DL (74-106) H Calcium Level 10.7 MG/DL (8.5-10.1) H Current Medications Medications (Trade) Dose Ordered Sig/Roro Route PRN Reason Start Time Stop Time Status Last Admin Dose Admin Acetaminophen (Tylenol) 650 mg Q4H PRN GT Fever/Headache 03/05/18 16:15 03/14/18 02:44 03/06/18 19:17 Albuterol/ Ipratropium (Albuterol/ Ipratropium) 3 ml Q4HRT HHN 03/09/18 11:00 03/14/18 10:59 03/10/18 11:30 Amlodipine Besylate (Norvasc) 5 mg QHS GT 03/08/18 21:00 04/03/18 20:59 03/09/18 20:15 Bisacodyl (Dulcolax) 10 mg DAILYPRN PRN RECTAL Constipation 03/02/18 20:15 03/16/18 19:14 Carbidopa/Levodopa (Sinemet 25/100) 1.5 tab 0700,1500,2300 GT 03/06/18 15:00 04/05/18 14:59 03/10/18 06:46 Cefepime HCl 2 gm/ Dextrose 100 ml @ 200 mls/hr Q24H IVPB 03/08/18 20:00 03/10/18 23:59 03/09/18 20:15 Clonidine HCl (Catapres Tab) 0.1 mg Q4H PRN GT For SBP>170 03/05/18 16:15 03/23/18 18:59 Diphenhydramine HCl (Benadryl) 25 mg Q4H PRN GT Itching 03/05/18 16:15 04/04/18 16:14 03/07/18 03:20 Fluconazole/ Sodium Chloride 100 ml @ 100 mls/hr Q24H IV 03/09/18 12:00 03/10/18 23:59 03/10/18 11:39 Insulin Aspart (NovoLOG) 4 units NOVOTIAC SUBQ 03/03/18 06:30 03/14/18 11:49 03/10/18 11:38 Lansoprazole (Prevacid) 30 mg ACBREAKFAST GT 03/06/18 06:30 03/14/18 06:29 03/10/18 06:05 Losartan Potassium (Cozaar) 100 mg DAILY GT 03/06/18 09:00 04/04/18 08:59 03/09/18 08:56 Metoclopramide HCl (Reglan) 10 mg Q6H PRN IVP Nausea & Vomiting 03/02/18 19:00 03/30/18 18:59 03/07/18 08:26 Metronidazole (Flagyl) 500 mg EVERY 8 HOURS GT 03/08/18 22:00 03/10/18 21:59 03/10/18 14:20 Ondansetron HCl (Zofran) 4 mg Q4H PRN IVP Nausea & Vomiting 03/02/18 19:00 03/15/18 18:59 03/03/18 06:55 Polyethylene Glycol (Miralax) 17 gm DAILYPRN PRN GT Constipation 03/05/18 16:15 03/22/18 19:59 Celia Capone MD Mar 10, 2018 15:03
--- NOTE | 2018-03-10 16:17 | Pulmonology Progress Note ---
Assessment/Plan Assessment/Plan 1. Acute respiratory failure, trach 2. 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 S/p trach 5. Parkinson's disease. 6. Esophageal dysmotility, PEG 7. Morbid obesity with obesity hypoventilation syndrome. 8. Hypertension w LVH 9. Nephrolithiasis and renal mass. 10. History of breast cancer 11. 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 dc to subacute or LTAC placement when accepted Subjective Constitutional: Reports: no symptoms Respiratory: Reports: productive cough; Denies: shortness of breath Allergies: Coded Allergies: No Known Allergies (Unverified , 01/11/14) Objective Last 24 Hour Vital Signs Date Time Temp Pulse Resp B/P (MAP) Pulse Ox O2 Delivery O2 Flow Rate FiO2 03/10/18 16:11 87 20 99 Trach Collar 6.0 28 03/10/18 16:02 102 18 100 Trach Collar 6.0 28 03/10/18 14:00 100 Trach Collar 6.0 28 03/10/18 14:00 Trach Collar 6.0 28 03/10/18 12:18 98 03/10/18 12:00 Trach Collar 5.0 03/10/18 12:00 5.0 28 03/10/18 12:00 98.5 102 19 118/77 (91) 99 98.5 03/10/18 11:40 96 20 100 Trach Collar 6.0 28 03/10/18 11:30 98 18 99 Trach Collar 6.0 28 03/10/18 08:55 106/66 03/10/18 08:06 94 03/10/18 08:00 5.0 28 03/10/18 08:00 Trach Collar 5.0 03/10/18 08:00 97.5 81 16 106/66 (79) 98 97.5 03/10/18 07:32 87 20 100 Trach Collar 6.0 28 03/10/18 07:25 99 Trach Collar 6.0 28 03/10/18 07:25 86 18 99 Trach Collar 6.0 28 03/10/18 07:25 Trach Collar 6.0 28 03/10/18 04:00 94 03/10/18 04:00 Trach Collar 5.0 03/10/18 04:00 98.2 95 20 111/72 (85) 98 98.2 03/10/18 04:00 5.0 28 03/10/18 03:36 88 20 99 Trach Collar 6.0 28 03/10/18 03:29 75 20 99 Trach Collar 6.0 28 03/10/18 03:28 99 Trach Collar 6.0 28 03/10/18 01:00 Trach Collar 6.0 28 03/10/18 00:00 5.0 28 03/10/18 00:00 98.1 94 20 110/78 (89) 96 98.1 03/10/18 00:00 Trach Collar 5.0 03/09/18 23:22 104 20 97 Trach Collar 6.0 28 03/09/18 23:08 101 20 96 Trach Collar 6.0 28 03/09/18 20:15 106 137/86 03/09/18 20:00 98.6 100 18 133/80 (97) 95 98.6 03/09/18 20:00 101 03/09/18 20:00 5.0 28 03/09/18 20:00 Trach Collar 5.0 03/09/18 19:07 Trach Collar 6.0 28 03/09/18 19:06 100 Trach Collar 6.0 28 03/09/18 18:59 106 20 100 Trach Collar 6.0 28 03/09/18 18:45 104 20 98 Trach Collar 6.0 28 Intake and Output 03/09/18 03/10/18 19:00 07:00 Intake Total 850 ml 800 ml Output Total 200 ml 800 ml Balance 650 ml 0 ml IV Total 100 ml 100 ml Tube Feeding 600 ml 600 ml Other 150 ml 100 ml Output Urine Total 800 ml Stool Total 200 ml # Voids 3 Objective morbidly obese, PEG, trach General Appearance: no acute distress HEENT: atraumatic Respiratory/Chest: lungs clear Cardiovascular: normal rate Laboratory Tests 03/10/18 04:54: White Blood Count 7.7, Red Blood Count 4.47, Hemoglobin 11.1L, Hematocrit 36.8L , Mean Corpuscular Volume 82, Mean Corpuscular Hemoglobin 24.8L, Mean Corpuscular Hemoglobin Concent 30.1L, Red Cell Distribution Width 15.3H, Platelet Count 365, Mean Platelet Volume 5.5L, Neutrophils (%) (Auto) 61.7, Lymphocytes (%) (Auto) 22.4, Monocytes (%) (Auto) 8.0, Eosinophils (%) (Auto) 6.1H, Basophils (%) (Auto) 1.8, Sodium Level 137, Potassium Level 4.4, Chloride Level 102, Carbon Dioxide Level 27, Anion Gap 8, Blood Urea Nitrogen 36H, Creatinine 0.8, Estimat Glomerular Filtration Rate , Glucose Level 138H, Calcium Level 10.7H Current Medications Medications (Trade) Dose Ordered Sig/Roro Route PRN Reason Start Time Stop Time Status Last Admin Dose Admin Acetaminophen (Tylenol) 650 mg Q4H PRN GT Fever/Headache 03/05/18 16:15 03/14/18 02:44 03/06/18 19:17 Albuterol/ Ipratropium (Albuterol/ Ipratropium) 3 ml Q4HRT HHN 03/09/18 11:00 03/14/18 10:59 03/10/18 16:02 Amlodipine Besylate (Norvasc) 5 mg QHS GT 03/08/18 21:00 04/03/18 20:59 03/09/18 20:15 Bisacodyl (Dulcolax) 10 mg DAILYPRN PRN RECTAL Constipation 03/02/18 20:15 03/16/18 19:14 Carbidopa/Levodopa (Sinemet 25/100) 1.5 tab 0700,1500,2300 GT 03/06/18 15:00 04/05/18 14:59 03/10/18 15:21 Cefepime HCl 2 gm/ Dextrose 100 ml @ 200 mls/hr Q24H IVPB 03/08/18 20:00 03/10/18 23:59 03/09/18 20:15 Clonidine HCl (Catapres Tab) 0.1 mg Q4H PRN GT For SBP>170 03/05/18 16:15 03/23/18 18:59 Diphenhydramine HCl (Benadryl) 25 mg Q4H PRN GT Itching 03/05/18 16:15 04/04/18 16:14 03/07/18 03:20 Fluconazole/ Sodium Chloride 100 ml @ 100 mls/hr Q24H IV 03/09/18 12:00 03/10/18 23:59 03/10/18 11:39 Insulin Aspart (NovoLOG) 4 units NOVOTIAC SUBQ 03/03/18 06:30 03/14/18 11:49 03/10/18 11:38 Lansoprazole (Prevacid) 30 mg ACBREAKFAST GT 03/06/18 06:30 03/14/18 06:29 03/10/18 06:05 Losartan Potassium (Cozaar) 100 mg DAILY GT 03/06/18 09:00 04/04/18 08:59 03/09/18 08:56 Metoclopramide HCl (Reglan) 10 mg Q6H PRN IVP Nausea & Vomiting 03/02/18 19:00 03/30/18 18:59 03/07/18 08:26 Metronidazole (Flagyl) 500 mg EVERY 8 HOURS GT 03/08/18 22:00 03/10/18 21:59 03/10/18 14:20 Ondansetron HCl (Zofran) 4 mg Q4H PRN IVP Nausea & Vomiting 03/02/18 19:00 03/15/18 18:59 03/03/18 06:55 Polyethylene Glycol (Miralax) 17 gm DAILYPRN PRN GT Constipation 03/05/18 16:15 03/22/18 19:59 Gómez Matos MD Mar 10, 2018 16:17
[2018-03-10] MEDS ORDERED: NS 275ml ONE (20:20)
[2018-03-10] MEDS ORDERED: Tubing IV Secondary IV ONE (20:20)
[2018-03-10] MEDS ORDERED: Sterile Water Irrig 1000ml IRRIG ONE (20:20)
--- NOTE | 2018-03-10 23:00 | General Progress Note ---
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 Objective Last 24 Hour Vital Signs Date Time Temp Pulse Resp B/P (MAP) Pulse Ox O2 Delivery O2 Flow Rate FiO2 03/10/18 21:15 100 126/78 03/10/18 20:00 98.2 100 18 126/78 (94) 100 98.2 03/10/18 20:00 Trach Collar 5.0 03/10/18 20:00 5.0 28 03/10/18 19:55 101 03/10/18 19:22 101 18 100 Trach Collar 6.0 28 03/10/18 19:11 103 18 100 Trach Collar 6.0 28 03/10/18 19:11 Trach Collar 6.0 28 03/10/18 19:11 100 Trach Collar 6.0 28 03/10/18 16:11 87 20 99 Trach Collar 6.0 28 03/10/18 16:02 102 18 100 Trach Collar 6.0 28 03/10/18 16:00 97 03/10/18 16:00 5.0 28 03/10/18 16:00 97.7 99 18 138/82 (100) 97 97.7 03/10/18 16:00 Trach Collar 5.0 03/10/18 14:00 100 Trach Collar 6.0 28 03/10/18 14:00 Trach Collar 6.0 28 03/10/18 12:18 98 03/10/18 12:00 Trach Collar 5.0 03/10/18 12:00 5.0 28 03/10/18 12:00 98.5 102 19 118/77 (91) 99 98.5 03/10/18 11:40 96 20 100 Trach Collar 6.0 28 03/10/18 11:30 98 18 99 Trach Collar 6.0 28 03/10/18 08:55 106/66 03/10/18 08:06 94 03/10/18 08:00 5.0 28 03/10/18 08:00 Trach Collar 5.0 03/10/18 08:00 97.5 81 16 106/66 (79) 98 97.5 03/10/18 07:32 87 20 100 Trach Collar 6.0 28 03/10/18 07:25 99 Trach Collar 6.0 28 03/10/18 07:25 86 18 99 Trach Collar 6.0 28 03/10/18 07:25 Trach Collar 6.0 28 03/10/18 04:00 94 03/10/18 04:00 Trach Collar 5.0 03/10/18 04:00 98.2 95 20 111/72 (85) 98 98.2 03/10/18 04:00 5.0 28 03/10/18 03:36 88 20 99 Trach Collar 6.0 28 03/10/18 03:29 75 20 99 Trach Collar 6.0 28 03/10/18 03:28 99 Trach Collar 6.0 28 03/10/18 01:00 Trach Collar 6.0 28 03/10/18 00:00 5.0 28 03/10/18 00:00 98.1 94 20 110/78 (89) 96 98.1 03/10/18 00:00 Trach Collar 5.0 03/09/18 23:22 104 20 97 Trach Collar 6.0 28 03/09/18 23:08 101 20 96 Trach Collar 6.0 28 Intake and Output 03/09/18 03/10/18 19:00 07:00 Intake Total 850 ml 800 ml Output Total 200 ml 800 ml Balance 650 ml 0 ml IV Total 100 ml 100 ml Tube Feeding 600 ml 600 ml Other 150 ml 100 ml Output Urine Total 800 ml Stool Total 200 ml # Voids 3 Laboratory Tests 03/10/18 04:54: White Blood Count 7.7, Red Blood Count 4.47, Hemoglobin 11.1L, Hematocrit 36.8L , Mean Corpuscular Volume 82, Mean Corpuscular Hemoglobin 24.8L, Mean Corpuscular Hemoglobin Concent 30.1L, Red Cell Distribution Width 15.3H, Platelet Count 365, Mean Platelet Volume 5.5L, Neutrophils (%) (Auto) 61.7, Lymphocytes (%) (Auto) 22.4, Monocytes (%) (Auto) 8.0, Eosinophils (%) (Auto) 6.1H, Basophils (%) (Auto) 1.8, Sodium Level 137, Potassium Level 4.4, Chloride Level 102, Carbon Dioxide Level 27, Anion Gap 8, Blood Urea Nitrogen 36H, Creatinine 0.8, Estimat Glomerular Filtration Rate , Glucose Level 138H, Calcium Level 10.7H Height (Feet): 5 Height (Inches): 6.00 Weight (Pounds): 270 Objective WDWN NCAT Neck: (+) trach CTA RRR Abd Soft ND NT, (+) GT no edema Nell Gabriel MD Mar 10, 2018 23:00
[2018-03-11] MEDS: Albuterol/Ipratropium 3ml neb HHN SCH ×6 (03:05→23:37)
[2018-03-11 04:00] VITALS: BP 122/70
[2018-03-11] MEDS: NovoLOG Insulin Flexpen SUBQ SCH ×3 (06:30→17:46)
[2018-03-11] MEDS ORDERED: Metoclopramide 10mg/2ml Inj IVP PRN (07:00)
[2018-03-11] MEDS: Levodopa/Carbidopa 25/100 tab GT SCH ×3 (07:26→22:25)
[2018-03-11 08:00] VITALS: BP 135/68
[2018-03-11] MEDS ORDERED: Acetaminophen 650mg/20.3ml GT PRN (08:15)
[2018-03-11] MEDS ORDERED: DiphenhydrAMINE 25mg/10ml Elixir GT PRN (08:15)
[2018-03-11] MEDS: Losartan 50mg tab GT SCH (09:13)
--- NOTE | 2018-03-11 09:54 | Pulmonology Progress Note ---
Assessment/Plan Assessment/Plan 1. Acute respiratory failure, trach 2. Extensive pneumonia, left lung, due to Pseudomonas, resolved 3. 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 S/p trach 5. Parkinson's disease. 6. Esophageal dysmotility, PEG 7. Morbid obesity with obesity hypoventilation syndrome. 8. Hypertension w LVH 9. Nephrolithiasis and renal mass. 10. History of breast cancer 11. Diarrhea stable on aerosol Tolerating speaking valve tube feeds per GI; rectal tube disc w RN dc to subacute or LTAC placement when accepted completed abx Subjective Constitutional: Denies: fever Respiratory: Denies: productive cough, shortness of breath Allergies: Coded Allergies: No Known Allergies (Unverified , 01/11/14) Objective Last 24 Hour Vital Signs Date Time Temp Pulse Resp B/P (MAP) Pulse Ox O2 Delivery O2 Flow Rate FiO2 03/11/18 09:13 135/68 03/11/18 08:00 98.1 105 20 135/68 (90) 96 98.1 03/11/18 07:39 81 18 100 Trach Collar 6.0 28 03/11/18 07:26 79 18 97 Trach Collar 6.0 28 03/11/18 07:26 Trach Collar 6.0 28 03/11/18 07:25 97 Trach Collar 6.0 28 03/11/18 04:00 5.0 28 03/11/18 04:00 69 03/11/18 04:00 98.3 78 19 122/70 (87) 99 98.3 03/11/18 04:00 Trach Collar 5.0 03/11/18 03:15 71 18 100 Trach Collar 6.0 28 03/11/18 03:05 71 18 99 Trach Collar 6.0 28 03/11/18 01:02 99 Trach Collar 6.0 28 03/11/18 01:02 Trach Collar 6.0 28 03/11/18 00:00 5.0 28 03/11/18 00:00 92 03/11/18 00:00 Trach Collar 5.0 03/10/18 23:48 98.3 91 20 104/71 (82) 97 98.3 03/10/18 23:21 99 18 99 Trach Collar 6.0 28 03/10/18 23:11 97 18 99 Trach Collar 6.0 28 03/10/18 21:15 100 126/78 03/10/18 20:00 98.2 100 18 126/78 (94) 100 98.2 03/10/18 20:00 Trach Collar 5.0 03/10/18 20:00 5.0 28 03/10/18 19:55 101 03/10/18 19:22 101 18 100 Trach Collar 6.0 28 03/10/18 19:11 103 18 100 Trach Collar 6.0 28 03/10/18 19:11 Trach Collar 6.0 28 03/10/18 19:11 100 Trach Collar 6.0 28 03/10/18 16:11 87 20 99 Trach Collar 6.0 28 03/10/18 16:02 102 18 100 Trach Collar 6.0 28 03/10/18 16:00 97 03/10/18 16:00 5.0 28 03/10/18 16:00 97.7 99 18 138/82 (100) 97 97.7 03/10/18 16:00 Trach Collar 5.0 03/10/18 14:00 100 Trach Collar 6.0 28 03/10/18 14:00 Trach Collar 6.0 28 03/10/18 12:18 98 03/10/18 12:00 Trach Collar 5.0 03/10/18 12:00 5.0 28 03/10/18 12:00 98.5 102 19 118/77 (91) 99 98.5 03/10/18 11:40 96 20 100 Trach Collar 6.0 28 03/10/18 11:30 98 18 99 Trach Collar 6.0 28 Intake and Output 03/10/18 03/11/18 19:00 07:00 Intake Total 800 ml 650 ml Output Total 150 ml 750 ml Balance 650 ml -100 ml IV Total 100 ml 100 ml Tube Feeding 600 ml 550 ml Other 100 ml Output Urine Total 600 ml Stool Total 150 ml 150 ml # Voids 3 Objective morbidly obese, PEG, trach General Appearance: no acute distress HEENT: atraumatic Respiratory/Chest: lungs clear Cardiovascular: normal rate Current Medications Medications (Trade) Dose Ordered Sig/Roro Route PRN Reason Start Time Stop Time Status Last Admin Dose Admin Acetaminophen (Tylenol) 650 mg Q4H PRN GT Fever/Headache 03/11/18 08:15 03/14/18 02:44 Albuterol/ Ipratropium (Albuterol/ Ipratropium) 3 ml Q4HRT HHN 03/11/18 07:00 03/14/18 10:59 03/11/18 07:23 Amlodipine Besylate (Norvasc) 5 mg QHS GT 03/11/18 21:00 04/03/18 20:59 Bisacodyl (Dulcolax) 10 mg DAILYPRN PRN RECTAL Constipation 03/11/18 20:15 03/16/18 19:14 Carbidopa/Levodopa (Sinemet 25/100) 1.5 tab 0700,1500,2300 GT 03/11/18 07:00 04/05/18 14:59 03/11/18 07:26 Clonidine HCl (Catapres Tab) 0.1 mg Q4H PRN GT For SBP>170 03/11/18 08:15 03/23/18 18:59 Diphenhydramine HCl (Benadryl) 25 mg Q4H PRN GT Itching 03/11/18 08:15 04/04/18 16:14 Insulin Aspart (NovoLOG) 4 units NOVOTIAC SUBQ 03/11/18 06:30 03/14/18 11:49 03/11/18 06:30 Lansoprazole (Prevacid) 30 mg ACBREAKFAST GT 03/11/18 06:30 03/14/18 06:29 03/11/18 07:26 Losartan Potassium (Cozaar) 100 mg DAILY GT 03/11/18 09:00 04/04/18 08:59 03/11/18 09:13 Metoclopramide HCl (Reglan) 10 mg Q6H PRN IVP Nausea & Vomiting 03/11/18 07:00 03/30/18 18:59 Ondansetron HCl (Zofran) 4 mg Q4H PRN IVP Nausea & Vomiting 03/11/18 07:00 03/15/18 18:59 Polyethylene Glycol (Miralax) 17 gm DAILYPRN PRN GT Constipation 03/11/18 16:15 03/22/18 19:59 Gómez Matos MD Mar 11, 2018 09:54
--- NOTE | 2018-03-11 10:07 | Diagnostic Imaging Report ---
Indication: Shortness of breath Technique: One view of the chest Comparison: 03/08/2018 Findings: Tracheostomy, lower tracheal stent again demonstrated. Atelectasis and possibly pleural fluid at the left lung base is again demonstrated. Borderline interstitial prominence is unchanged. Impression: Unchanged, over one day, findings as above.
[2018-03-11 12:00] VITALS: BP 109/63
[2018-03-11 16:00] VITALS: BP 117/70
[2018-03-11] MEDS ORDERED: Miralax 17gm pkt GT PRN (16:15)
[2018-03-11 20:00] VITALS: BP 150/64
--- NOTE | 2018-03-11 21:43 | General Progress Note ---
Assessment/Plan Assessment/Plan Assessment - respiratory failure - s/p trach - s/p tracheal stent - s/p PEG - parkinsons - anemia, OB (-) x 3 - diarrhea, possibly TF related Recommendations - Continue TF - PT & ST eval - elemental TF to reduce diarrhea - low dose immodium trial - follow labs - [facility] Subjective Allergies: Coded Allergies: No Known Allergies (Unverified , 01/11/14) Subjective resting comfortably d/w family at bedside re diarrhea Objective Last 24 Hour Vital Signs Date Time Temp Pulse Resp B/P (MAP) Pulse Ox O2 Delivery O2 Flow Rate FiO2 03/11/18 21:37 71 150/64 03/11/18 20:00 77 20 98 Trach Collar 6.0 28 03/11/18 20:00 98.9 71 20 150/64 (92) 98 98.9 03/11/18 19:50 74 20 98 Trach Collar 6.0 28 03/11/18 19:49 Trach Collar 6.0 28 03/11/18 19:49 98 Trach Collar 6.0 28 03/11/18 16:00 99.1 102 20 117/70 (86) 98 99.1 03/11/18 15:27 91 20 99 Trach Collar 6.0 28 03/11/18 15:05 89 20 98 Trach Collar 6.0 28 03/11/18 13:30 Trach Collar 6.0 28 03/11/18 13:30 98 Trach Collar 6.0 28 03/11/18 12:00 97.7 98 20 109/63 (78) 95 97.7 03/11/18 11:03 94 18 99 Trach Collar 6.0 28 03/11/18 10:52 92 18 97 Trach Collar 6.0 28 03/11/18 09:13 135/68 03/11/18 08:00 98.1 105 20 135/68 (90) 96 98.1 03/11/18 07:39 81 18 100 Trach Collar 6.0 28 03/11/18 07:26 79 18 97 Trach Collar 6.0 28 03/11/18 07:26 Trach Collar 6.0 28 03/11/18 07:25 97 Trach Collar 6.0 28 03/11/18 04:00 5.0 28 03/11/18 04:00 69 03/11/18 04:00 98.3 78 19 122/70 (87) 99 98.3 03/11/18 04:00 Trach Collar 5.0 03/11/18 03:15 71 18 100 Trach Collar 6.0 28 03/11/18 03:05 71 18 99 Trach Collar 6.0 28 03/11/18 01:02 99 Trach Collar 6.0 28 03/11/18 01:02 Trach Collar 6.0 28 03/11/18 00:00 5.0 28 03/11/18 00:00 92 03/11/18 00:00 Trach Collar 5.0 03/10/18 23:48 98.3 91 20 104/71 (82) 97 98.3 03/10/18 23:21 99 18 99 Trach Collar 6.0 28 03/10/18 23:11 97 18 99 Trach Collar 6.0 28 Intake and Output 03/10/18 03/11/18 19:00 07:00 Intake Total 800 ml 650 ml Output Total 150 ml 750 ml Balance 650 ml -100 ml IV Total 100 ml 100 ml Tube Feeding 600 ml 550 ml Other 100 ml Output Urine Total 600 ml Stool Total 150 ml 150 ml # Voids 3 Height (Feet): 5 Height (Inches): 6.00 Weight (Pounds): 270 Objective WDWN NCAT Neck: (+) trach CTA RRR Abd Soft ND NT, (+) GT no edema Nell Gabriel MD Mar 11, 2018 21:43
[2018-03-12] VITALS: BP 115/71
[2018-03-12] MEDS: Albuterol/Ipratropium 3ml neb HHN SCH ×4 (03:39→15:04)
[2018-03-12 04:00] VITALS: BP 138/76
[2018-03-12] MEDS: NovoLOG Insulin Flexpen SUBQ SCH ×2 (05:57→13:35)
[2018-03-12] MEDS: Levodopa/Carbidopa 25/100 tab GT SCH ×2 (06:47→14:36)
[2018-03-12 07:04] LABS: BASOPHILS % (AUTO) 1.4 % (0.0-2.0); EOSINOPHILS % (AUTO) 5.6 % (0.0-3.0); HEMATOCRIT 33.3 % (37.0-47.0); HEMOGLOBIN 10.2 G/DL (12.0-16.0); LYMPHOCYTES % (AUTO) 26.8 % (20.0-45.0); MEAN CORPUSCULAR VOLUME 82 FL (80-99); MONOCYTES % (AUTO) 7.6 % (1.0-10.0); NEUTROPHILS % (AUTO) 58.6 % (45.0-75.0); PLATELET COUNT 320 K/UL (150-450); RED BLOOD COUNT 4.05 M/UL (4.20-5.40); RED CELL DISTRIBUTION WIDTH 15.5 % (11.6-14.8); WHITE BLOOD COUNT 7.5 K/UL (4.8-10.8)
[2018-03-12 07:52] LABS: ANION GAP 9 mmol/L (5-15); BLOOD UREA NITROGEN 36 mg/dL (7-18); CALCIUM 10.9 MG/DL (8.5-10.1); CARBON DIOXIDE 24 MMOL/L (21-32); CHLORIDE 104 MMOL/L (98-107); CREATININE 0.9 MG/DL (0.55-1.30); POTASSIUM 4.3 MMOL/L (3.5-5.1); SODIUM 137 MMOL/L (136-145)
[2018-03-12 08:00] VITALS: BP 118/74
--- NOTE | 2018-03-12 08:37 | Pulmonology Progress Note ---
Assessment/Plan Assessment/Plan 1. Acute respiratory failure, trach 2. Extensive pneumonia, left lung, due to Pseudomonas, resolved 3. 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 S/p trach 5. Parkinson's disease. 6. Esophageal dysmotility, PEG 7. Morbid obesity with obesity hypoventilation syndrome. 8. Hypertension w LVH 9. Nephrolithiasis and renal mass. 10. History of breast cancer 11. Diarrhea stable on aerosol and speaking valve tube feeds per GI, NPO due to aspiration risk; rectal tube, added loperamide disc w RN dc to [facility], appeal approved by ins waiting for bed to transfer completed abx Subjective Constitutional: Reports: no symptoms Respiratory: Denies: productive cough, shortness of breath Allergies: Coded Allergies: No Known Allergies (Unverified , 01/11/14) Objective Last 24 Hour Vital Signs Date Time Temp Pulse Resp B/P (MAP) Pulse Ox O2 Delivery O2 Flow Rate FiO2 03/12/18 07:37 66 18 97 Trach Collar 6.0 28 03/12/18 07:27 64 16 94 Trach Collar 6.0 28 03/12/18 07:27 94 Trach Collar 6.0 28 03/12/18 07:27 T-piece 6.0 28 03/12/18 04:00 98.2 88 20 138/76 (96) 98 98.2 03/12/18 03:50 75 18 98 Trach Collar 6.0 28 03/12/18 03:39 77 20 97 Trach Collar 6.0 28 03/12/18 01:10 Trach Collar 6.0 28 03/12/18 01:10 97 Trach Collar 6.0 28 03/12/18 00:00 97.7 89 20 115/71 (86) 97 97.7 03/11/18 23:47 88 18 98 Trach Collar 6.0 28 03/11/18 23:37 88 18 97 Trach Collar 6.0 28 03/11/18 21:37 71 150/64 03/11/18 21:00 Trach Collar 5.0 03/11/18 20:00 77 20 98 Trach Collar 6.0 28 03/11/18 20:00 98.9 71 20 150/64 (92) 98 98.9 03/11/18 19:50 74 20 98 Trach Collar 6.0 28 03/11/18 19:49 Trach Collar 6.0 28 03/11/18 19:49 98 Trach Collar 6.0 28 03/11/18 16:00 99.1 102 20 117/70 (86) 98 99.1 03/11/18 15:27 91 20 99 Trach Collar 6.0 28 03/11/18 15:05 89 20 98 Trach Collar 6.0 28 03/11/18 13:30 Trach Collar 6.0 28 03/11/18 13:30 98 Trach Collar 6.0 28 03/11/18 12:00 97.7 98 20 109/63 (78) 95 97.7 03/11/18 11:03 94 18 99 Trach Collar 6.0 28 03/11/18 10:52 92 18 97 Trach Collar 6.0 03/11/18 09:13 135/68 Intake and Output 03/11/18 03/12/18 19:00 07:00 Intake Total 150 ml 750 ml Balance 150 ml 750 ml Free Water 100 ml 200 ml Tube Feeding 50 ml 550 ml # Voids 3 1 Objective morbidly obese, PEG, trach General Appearance: no acute distress HEENT: atraumatic Respiratory/Chest: lungs clear Cardiovascular: normal rate Laboratory Tests 03/12/18 05:10: White Blood Count 7.5, Red Blood Count 4.05L, Hemoglobin 10.2L, Hematocrit 33.3L , Mean Corpuscular Volume 82, Mean Corpuscular Hemoglobin 25.3L, Mean Corpuscular Hemoglobin Concent 30.8L, Red Cell Distribution Width 15.5H, Platelet Count 320, Mean Platelet Volume 6.0L, Neutrophils (%) (Auto) 58.6, Lymphocytes (%) (Auto) 26.8, Monocytes (%) (Auto) 7.6, Eosinophils (%) (Auto) 5.6H, Basophils (%) (Auto) 1.4, Sodium Level 137, Potassium Level 4.3, Chloride Level 104, Carbon Dioxide Level 24, Anion Gap 9, Blood Urea Nitrogen 36H, Creatinine 0.9, Estimat Glomerular Filtration Rate , Glucose Level 137H, Calcium Level 10.9H Current Medications Medications (Trade) Dose Ordered Sig/Roro Route PRN Reason Start Time Stop Time Status Last Admin Dose Admin Acetaminophen (Tylenol) 650 mg Q4H PRN GT Fever/Headache 03/11/18 08:15 03/14/18 02:44 Albuterol/ Ipratropium (Albuterol/ Ipratropium) 3 ml Q4HRT HHN 03/11/18 07:00 03/14/18 10:59 03/12/18 07:27 Amlodipine Besylate (Norvasc) 5 mg QHS GT 03/11/18 21:00 04/03/18 20:59 03/11/18 21:37 Bisacodyl (Dulcolax) 10 mg DAILYPRN PRN RECTAL Constipation 03/11/18 20:15 03/16/18 19:14 Carbidopa/Levodopa (Sinemet 25/100) 1.5 tab 0700,1500,2300 GT 03/11/18 07:00 04/05/18 14:59 03/12/18 06:47 Clonidine HCl (Catapres Tab) 0.1 mg Q4H PRN GT For SBP>170 03/11/18 08:15 03/23/18 18:59 Diphenhydramine HCl (Benadryl) 25 mg Q4H PRN GT Itching 03/11/18 08:15 04/04/18 16:14 Insulin Aspart (NovoLOG) 4 units NOVOTIAC SUBQ 03/11/18 06:30 03/14/18 11:49 03/12/18 05:57 Lansoprazole (Prevacid) 30 mg ACBREAKFAST GT 03/11/18 06:30 03/14/18 06:29 03/12/18 06:46 Loperamide HCl (Imodium) 2 mg DAILY GT 03/12/18 09:00 04/11/18 08:59 Losartan Potassium (Cozaar) 100 mg DAILY GT 03/11/18 09:00 04/04/18 08:59 03/11/18 09:13 Metoclopramide HCl (Reglan) 10 mg Q6H PRN IVP Nausea & Vomiting 03/11/18 07:00 03/30/18 18:59 Ondansetron HCl (Zofran) 4 mg Q4H PRN IVP Nausea & Vomiting 03/11/18 07:00 03/15/18 18:59 Polyethylene Glycol (Miralax) 17 gm DAILYPRN PRN GT Constipation 03/11/18 16:15 03/22/18 19:59 Gómez Matos MD Mar 12, 2018 08:37
[2018-03-12] MEDS: Losartan 50mg tab GT SCH (09:07)
[2018-03-12 12:00] VITALS: BP 117/71
[2018-03-12] MEDS ORDERED: NORVASC5 MG GT (13:34)
[2018-03-12] MEDS ORDERED: ACETAMINOPHEN325 M1 GT (13:34)
[2018-03-12] MEDS ORDERED: CLONIDINE HCL0.1 MG GT (13:35)
[2018-03-12] MEDS ORDERED: BISACODYL10 M1 RC (13:35)
[2018-03-12] MEDS ORDERED: DIPHENHYDRAMINE25 M1 GT (13:36)
[2018-03-12] MEDS ORDERED: NOVOLOG100 UNIT/4 SQ (13:38)
[2018-03-12] MEDS ORDERED: ALBUTEROL2.5 MG/3 M INH (13:39)
[2018-03-12] MEDS ORDERED: LANSOPRAZOLE30 M2 GT (13:41)
[2018-03-12] MEDS ORDERED: SINEMET CR 25/101 EA GT (13:41)
[2018-03-12] MEDS ORDERED: LOPERAMIDE1 MG/5 ML GT (13:42)
[2018-03-12] MEDS ORDERED: LOSARTAN POTAS100 MG GT (13:43)
[2018-03-12] MEDS ORDERED: ZOFRAN ODT8 MG ORAL (13:49)
[2018-03-12] MEDS ORDERED: POLYETHYLENE GL17 GM ORAL (13:50)
[2018-03-12] MEDS ORDERED: NS 275ml ONE (16:02)
--- NOTE | 2018-03-15 12:22 | Discharge Summary ---
Discharge Summary Discharge Summary _ DATE OF ADMISSION: 02/11/2018 DATE OF DISCHARGE: 03/12/2018 REASON FOR ADMISSION: 82 years old female with past medical history significant for Parkinson disease , esophageal dysmotility ,torturous esophagus, tracheomalacia, status post tracheal stent, hypertension, renal mass, nephrolithiasis, anemia, meningioma, thyroid mass, history of breast cancer with lumpectomy ,morbid obesity with obesity hypoventilation syndrome , was sent from [facility] to respiratory distress. Patient in emergency department initially was placed on the BiPAP. Vital signs reveal fever-104. ABG on BiPAP 12/5 with 100% FiO2 revealed severe respiratory acidosis and hypercapnia. Repeated ABG revealed worsening respiratory acidosis and worsening hypercapnia . Patient subsequently was orally intubated in the emergency department . and was transferred to ICU for further management with diagnosis off Laboratory workup revealed leukocytosis with WBC 23.2 , hemoglobin and hematocrit initially stable. Electrolytes and renal parameters stable. Troponin negative , proBNP 297. Lactic acid 0.8 Urinalysis revealed evidence of UTI EKG revealed sinus rhythm, no acute ischemic changes . Chest x-ray showed infiltrates Patient admitted with diagnoses of acute respiratory failure requiring intubation ,sepsis, healthcare associated pneumonia ,aspiration pneumonia, urinary tract infection, morbid obesity. CONSULTANTS: ID specialist Dr. Capone GI specialist [facility] surgery Dr. Villeda [facility] COURSE: Patient admitted to ICU. Ventilator support provided. Pulmonary toilet provided . Patient was followed up with daily chest x-ray and ABG. Patient started on IV fluids and empiric antibiotics. Infectious disease specialist closely followed. Blood culture negative. Urine culture revealed Escherichia coli , sputum culture revealed Pseudomonas and [place]. Antibiotic regimen optimized as per ID specialist recommendations based on culture and sensitivity. Echocardiogram revealed preserved ejection fraction of 70-75%, no wall motion abnormality. Mild left ventricular hypertrophy. [id number] mitral regurgitation. Right ventricular systolic pressure of 37, likely underestimation . Venous duplex bilateral lower extremity revealed no evidence of acute DVT. Nutritional support provided via NG tube with strict aspiration/ reflux precautions. GI specialist closely follow. Patient was started on weaning protocol as tolerated . Unfortunately patient was unable to tolerate weaning protocol. Patient required prolonged ventilatory support, failure to wean and consideration for tracheostomy were made. Surgery consult was requested. Surgeon discussed the risks, benefits and alternatives with the patient and family. Patient's consent was obtained for the procedure. Given patient's history of prior tracheal disease, including potential tracheomalacia, history of multiply prior intubations and hospitalizations and prior tracheal stent placement , there was a need to perform a bronchoscopy as well. Patient subsequently undergone bronchoscopy, tracheostomy and removal of malpositioned tracheal stent on 02/26/18. During the procedure old tracheal stent was removed. Pathology was consistent with surgical device such as stent , no other findings. Surgeon closely followed patient after tracheostomy. Tracheostomy was clean and functional . Dressing changed as needed . Patient initially was on ventilator , but later was able to be weaned from the ventilator. GI closely followed. Patient demonstrated evidence of anemia. Stool for occult blood 3 was negative. Hemoglobin and hematocrit were closely monitored with goal to keep hemoglobin below 7 ,no need for transfusion on this admission. Patient subsequently undergone EGD with gastrostomy tube placement. During the procedure found mild duodenitis and gastritis , status post biopsy . Pathology of duodenum showed focal acute nonspecific inflammatory and reactive changes. Pathology of antrum of the stomach showed mild chronic gastritis with healing erosion, no H. pylori was identified. Tube feeding provided with strict aspiration /reflux precautions. Patient noted to have diarrhea ,probably tube feeding related. Stool for C. difficile was negative. Initially rectal tube inserted for management of diarrhea. Trial of Imodium started . Diarrhea improved. Blood pressure was managed with calcium channel kayode and angiotensin receptor kayode , and remained stable. Pulmonary toilet provided as needed. Oxygen titrated to keep pulse oximetry above 92% . Patient was able to be weaned from the ventilator. Stable with [place] valve and aerosol. Blood sugar was managed with sliding scale of insulin. Hemoglobin A1c at goal. Sinemet was continued. Patient was working with physical occupational therapists and speech therapist. Patient clinically stabilized. Antibiotics completed. No signs of respiratory distress, Patient was stable for transfer to [facility]. FINAL DIAGNOSES: Acute respiratory failure requiring intubation Sepsis Pseudomonas pneumonia Escherichia coli UTI Fungal UTI Paratracheal mass Tracheomalacia with tracheal stent, status post removal Failure to wean and prolonged intubation s/p bronchoscopy and tracheostomy 02/26/2018 s/ p EGD and gastrostomy tube placement Mild duodenitis and gastritis, s/p biopsy Esophageal dysmotility Parkinson disease Morbid obesity with obesity hypoventilation syndrome Hypertension with left ventricular hypertrophy Anemia Nephrolithiasis and renal mass History of breast cancer , s/p lumpectomy Diarrhea- improved Dysphagia DISCHARGE MEDICATIONS: See Medication Reconciliation list. DISCHARGE INSTRUCTIONS: Patient was transferred to [facility] [place] for further management I have been assigned to dictate discharge summary for this account. I was not involved in the patient's management. Jannet Soto NP Mar 15, 2018 12:22
== END 2018-03-12 16:03 | DRG 3 ==
LOC: EDBD 21:41 → EMR 22:00 → EDBEDREQ 22:40 → ICU 23:40 → EDBEDREQSVC 23:56 → EDBEDREQ 23:56 → 2W 03-02 17:39 → 4E 03-11 04:40
PROC: 5A1955Z Respiratory Ventilation, Greater than 96 Consecutive Hours (ICD-10-PCS; principal; 2018-02-11)
PROC: 0BH17EZ Insertion of Endotracheal Airway into Trachea, Via Natural or Artificial Opening (ICD-10-PCS; principal; 2018-02-11)
PROC: 0BJ08ZZ Inspection of Tracheobronchial Tree, Via Natural or Artificial Opening Endoscopic (ICD-10-PCS; 2018-02-26)
PROC: 0B110F4 Bypass Trachea to Cutaneous with Tracheostomy Device, Open Approach (ICD-10-PCS; 2018-02-26)
PROC: 0BP Respiratory System, Removal (ICD-10-PCS; 2018-02-26)
PROC: 0DB98ZX Excision of Duodenum, Via Natural or Artificial Opening Endoscopic, Diagnostic (ICD-10-PCS; 2018-03-01)
PROC: 0DH63UZ Insertion of Feeding Device into Stomach, Percutaneous Approach (ICD-10-PCS; 2018-03-01)
PROC: 0DB68ZX Excision of Stomach, Via Natural or Artificial Opening Endoscopic, Diagnostic (ICD-10-PCS; 2018-03-01)
DX: A41.9 Sepsis, unspecified organism (principal); J96.01 Acute respiratory failure with hypoxia; J15.1 Pneumonia due to Pseudomonas; J69.0 Pneumonitis due to inhalation of food and vomit; E66.2 Morbid (severe) obesity with alveolar hypoventilation; Z68.43 Body mass index [BMI] 50.0-59.9, adult; N39.0 Urinary tract infection, site not specified; Z99.11 Dependence on respirator [ventilator] status; B49 Unspecified mycosis; N20.0 Calculus of kidney; G20 Parkinson's disease; K22.4 Dyskinesia of esophagus; R13.10 Dysphagia, unspecified; J39.8 Other specified diseases of upper respiratory tract; Z85.3 Personal history of malignant neoplasm of breast; I10 Essential (primary) hypertension; E04.1 Nontoxic single thyroid nodule; B96.20 Unspecified Escherichia coli [E. coli] as the cause of diseases classified elsewhere; R19.7 Diarrhea, unspecified; K29.80 Duodenitis without bleeding; K29.70 Gastritis, unspecified, without bleeding; D64.9 Anemia, unspecified; D32.9 Benign neoplasm of meninges, unspecified; N28.89 Other specified disorders of kidney and ureter
CPT/HCPCS: 36415; 36600; 71045; 74018; 74160; 74230; 80048; 80053; 80150; 80202; 81001; 81003; 82270; 82550; 82553; 82803; 82962; 83036; 83605; 83880; 84165; 84484; 85007; 85025; 85610; 85730; 87040; 87070; 87075; 87081; 87086; 87181; 87205; 87324; 93005; 93306; 93970; 94002; 94003; 94150; 94640; 94664; 94760; 99291; J1815; J2250; J2405; J2765; J7620; J8499